=== PATIENT | female | born 1945 | race Caucasian/White ===

== ENCOUNTER → 2016-07-11 | Outpatient (CLI) | payer BC ==
[~2016-07-11] MED LIST: ALG PEG; ASCA500 PO; ASPI-435 PO; BENZ100C18 PO; CALC-354 PO; CARB0.5D28 OPB; EPP3/2 IM; HIZENTRA; HYCUDL5 PO; IPRA1AER2 INH; ISOS60TA2 PO; METO50TA16 PO; MULT-513 PO; MXZC25 PO; NITR0.4S UT; POTA-327 PO; PRD/1 PO; PROC1TAB5 PO; RALO1TAB2 PO; RESV1TAB PO; SIMV40TA4 PO; [UNRECOGNIZED DRUG - CODE] PO; [UNRECOGNIZED DRUG - CODE] TOP
--- NOTE | 2016-07-11 11:15 | DIAGNOSTIC IMAGING REPORT ---
TWO VIEW CHEST CLINICAL HISTORY: Pulmonary infection. FINDINGS: PA and lateral chest radiographs are compared to study dated 01/09/2016 and correlated with chest CT dated 06/11/2015. A left subclavian central venous infusion port is unchanged in position. The patient is status post midline sternotomy. The heart is top normal in size and there is atherosclerotic calcification of the thoracic aorta. The pulmonary vasculature is noncongested. Emphysema and chronic interstitial thickening is similar to previous. Bibasilar airspace opacities persist. A right suprahilar density is unchanged and measures up to 3.2 cm. There is no pleural effusion or pneumothorax. The skeletal structures are osteopenic. Degenerative change and hyperkyphosis are noted in the thoracic spine. IMPRESSION: 1. Emphysema. 2. A 3.2 cm right suprahilar lesion/density is unchanged from the 06/11/2015 CT scan. Neoplasm is not excluded. 3. Bibasilar airspace opacities persist Electronically signed by: Han Bolanos M.D. 07/11/2016 11:14 AM Dictated Date/Time: 07/11/2016 11:12 AM
== END | disposition home or self-care (01) ==
LOC: C.RAD1850 10:46
PROVIDERS: ATTEND Internal Medicine Pulmonary Disease
DX: A31.0 Pulmonary mycobacterial infection (principal); D84.9 Immunodeficiency, unspecified; J43.9 Emphysema, unspecified; R91.8 Other nonspecific abnormal finding of lung field

== ENCOUNTER → 2016-09-30 | Outpatient (CLI) | payer BC ==
[~2016-09-30] MED LIST changes: +ALBU18002 INH; +CEVI1CAP PO; +HYZENTRA INJ; +MAGN250T3 PO; +MISCCAP80 PO; +NTRGSL/4 UT; +POTA20TA16 PO; +RESV250C PO; +RNXER500 PO; +TRAM-10 PO
[2016-09-30 12:40] LABS: BASO % 0.2 %; BASO ABS # 0.01 K/uL (0-0.2); COMPLETE YES; EOS % 1.1 %; HEMATOCRIT 39.9 % (37-47); LYMPH % 28.3 %; LYMPH ABS # 1.52 K/uL (1.2-3.4); MEAN CELL VOLUME 97.6 fL (80-100); MEAN CORPUSCULAR HEMOGLOBIN 32.5 pg (25-34); MEAN CORPUSCULAR HGB CONC 33.3 g/dl (32-36); MEAN PLATELET VOLUME 10.2 fL (7.4-10.4); MONO % 14.3 %; NEUT % 56.1 %; PLATELET COUNT 153 K/uL (130-400); RED BLOOD COUNT 4.09 M/uL (4.2-5.4); WHITE BLOOD COUNT 5.38 K/uL (4.8-10.8)
[2016-09-30 12:55] LABS: ALB/GLOB RATIO 0.8 (0.9-2); ALT/SGPT 23 U/L (12-78); BLOOD UREA NITROGEN 21 mg/dl (7-18); BUN/CREATININE RATIO 15.9 (10-20); CARBON DIOXIDE 27 mmol/L (21-32); CHLORIDE 103 mmol/L (98-107); CHOLESTEROL 137 mg/dl (0-200); GLUCOSE 87 mg/dl (70-99); POTASSIUM 3.9 mmol/L (3.5-5.1); SODIUM 140 mmol/L (136-145); TRIGLYCERIDES 277 mg/dl (0-150); VERY LOW DENSITY LIPOPROT CALC 55 mg/dl
[2016-09-30 13:01] LABS: ALKALINE PHOSPHATASE 48 U/L (45-117); AST/SGOT 35 U/L (15-37); CHOLESTEROL/HDL RATIO 3.9; HDL CHOLESTEROL 35 mg/dl
[2016-09-30 13:34] LABS: ESTIMATED AVERAGE GLUCOSE 123 mg/dl; HA1C FLAG Normal (Normal)
== END | disposition home or self-care (01) ==
LOC: C.LABSPEC 12:16
PROVIDERS: ATTEND Internal Medicine
DX: R73.9 Hyperglycemia, unspecified (principal); E78.5 Hyperlipidemia, unspecified; C85.90 Non-Hodgkin lymphoma, unspecified, unspecified site; I25.10 Atherosclerotic heart disease of native coronary artery without angina pectoris

== ENCOUNTER → 2016-10-03 | Outpatient (CLI) | payer BC | END | disposition home or self-care (01) | LOC: C.LABSPEC 15:42 | PROVIDERS: ATTEND Internal Medicine | DX: Z12.11 Encounter for screening for malignant neoplasm of colon (principal) ==

== ENCOUNTER → 2016-11-17 | Outpatient (CLI) | payer BC ==
[~2016-11-17] MED LIST changes: -ALBU18002 INH; -CEVI1CAP PO; -HYZENTRA INJ; -MAGN250T3 PO; -MISCCAP80 PO; -NTRGSL/4 UT; -POTA20TA16 PO; -RESV250C PO; -RNXER500 PO; -TRAM-10 PO
[2016-11-17 10:36] LABS: CHOLESTEROL/HDL RATIO 3.3
== END | disposition home or self-care (01) ==
LOC: C.LAB1850 09:10
PROVIDERS: ATTEND Internal Medicine Cardiovascular Disease
DX: I25.10 Atherosclerotic heart disease of native coronary artery without angina pectoris (principal); I10 Essential (primary) hypertension

== ENCOUNTER → 2016-12-04 | Outpatient (CLI) | payer BC ==
--- NOTE | 2016-12-04 14:04 | MAMMOGRAPHY REPORT ---
BILATERAL DIGITAL SCREENING MAMMOGRAM WITH CAD: 12/04/2016 CLINICAL HISTORY: Routine screening. Patient has no complaints. TECHNIQUE: Current study was also evaluated with a Computer Aided Detection (CAD) system. Bilateral CC and MLO views were obtained. COMPARISON: Comparison is made to exams dated: 12/03/2015 mammogram, 11/29/2014 mammogram, 11/28/2013 mamm ogram, 11/25/2012 mammogram, 05/31/2012 ultrasound, and 05/31/2012 mammogram - [facility] . BREAST COMPOSITION: There are scattered areas of fibroglandular density in both breasts. FINDINGS: No suspicious masses, calcifications, or areas of architectural distortion are noted in ei ther breast. There has been no significant interval change compared to prior exams. Scattered bilater al benign-appearing calcifications are not significantly changed. A port catheter projects over the left pectoralis muscle. IMPRESSION: ACR BI-RADS CATEGORY 2: BENIGN There is no mammographic evidence of malignancy. A 1 year screening mammogram is recommended. The pa tient will receive written notification of the results. Approximately 10% of breast cancers are not detected with mammography. A negative mammographic report should not delay biopsy if a clinically suggestive mass is present. Maia Flor M.D. /:12/04/2016 10:32:47 Beet Worker: Mindy Bauer, [facility] letter sent: Normal 1/2 BI-RADS Code: ACR BI-RADS Category 2: Benign
== END | disposition home or self-care (01) ==
LOC: C.MAMM 09:53
PROVIDERS: ATTEND Internal Medicine
DX: Z12.31 Encounter for screening mammogram for malignant neoplasm of breast (principal)

== ENCOUNTER → 2017-02-03 | Outpatient (CLI) | payer BC ==
[2017-02-03 12:43] LABS: BASO % 0.2 %; BASO ABS # 0.01 K/uL (0-0.2); COMPLETE YES; EOS % 0.5 %; LYMPH ABS # 1.89 K/uL (1.2-3.4); MEAN CELL VOLUME 96.9 fL (80-100); MEAN CORPUSCULAR HEMOGLOBIN 32.1 pg (25-34); MEAN CORPUSCULAR HGB CONC 33.2 g/dl (32-36); MEAN PLATELET VOLUME 10.4 fL (7.4-10.4); MONO % 14.4 %; NEUT % 52.9 %; PLATELET COUNT 168 K/uL (130-400); RED BLOOD COUNT 3.92 M/uL (4.2-5.4)
[2017-02-03 12:55] LABS: ESTIMATED AVERAGE GLUCOSE 126 mg/dl; HA1C FLAG Normal (Normal)
[2017-02-03 13:28] LABS: ALT/SGPT 20 U/L (12-78); AST/SGOT 33 U/L (15-37); BLOOD UREA NITROGEN 24 mg/dl (7-18); BUN/CREATININE RATIO 20.2 (10-20); CALCIUM 9.3 mg/dl (8.5-10.1); CARBON DIOXIDE 28 mmol/L (21-32); CHLORIDE 102 mmol/L (98-107); GLUCOSE 87 mg/dl (70-99); POTASSIUM 3.7 mmol/L (3.5-5.1); SODIUM 138 mmol/L (136-145)
[2017-02-03 13:31] LABS: ALB/GLOB RATIO 0.9 (0.9-2); ALKALINE PHOSPHATASE 52 U/L (45-117)
== END | disposition home or self-care (01) ==
LOC: C.LABSPEC 12:05
PROVIDERS: ATTEND Internal Medicine
DX: N73.9 Female pelvic inflammatory disease, unspecified (principal); I25.10 Atherosclerotic heart disease of native coronary artery without angina pectoris; I10 Essential (primary) hypertension; C85.90 Non-Hodgkin lymphoma, unspecified, unspecified site

== ENCOUNTER → 2017-02-04 | Outpatient (CLI) | payer BC ==
[~2017-02-04] MED LIST changes: +OPTIRAY 320 IV PRN
--- NOTE | 2017-02-04 14:58 | DIAGNOSTIC IMAGING REPORT ---
CT ABD/PELVIS IV AND ORAL CONT CLINICAL HISTORY: LYMPHOMA COMPARISON STUDY: 06/11/2015 TECHNIQUE: Following the IV administration of 94. mL of Optiray-320, CT scan of the abdomen and pelvis was performed from the lung bases to the proximal femurs. Images are reviewed in the axial, sagittal, and coronal planes. IV contrast was administered without complication. A dose lowering technique was utilized adhering to the principles of ALARA. CT DOSE: FINDINGS: Lower chest: There are lower lobe bronchiectatic changes. There are scattered subcentimeter nodules. There is a 3 cm left lower lobe paravertebral opacity with air bronchograms. Liver: There is stable 14 mm hypodensity within the right hepatic lobe. There is no ductal dilatation. Portal vein appears patent. Gallbladder: Surgically absent Spleen: Normal in size and attenuation. Pancreas: Unremarkable. Adrenal glands: Unremarkable. Kidneys: No solid renal masses are visualized. Subcentimeter renal hypodensities likely represent cysts. There is no hydronephrosis. Bowel: There are no transition zones indicate bowel obstruction. No acute inflammatory changes are visualized. Peritoneum: There is no intraperitoneal free air or abdominal ascites. There is a tiny fat-containing umbilical hernia. Vasculature: Atheromatous changes are present within the abdominal aorta. There is no evidence of aneurysm. Adenopathy: None. Pelvic viscera: The uterus appears surgically absent. Skeletal structures: No destructive osseous lesions are seen. IMPRESSION: 1. No acute findings within the abdomen or pelvis 2. No evidence of pathologic adenopathy 3. Stable right lobe hepatic hypodensity 4. Parenchymal findings at the lung bases which will be described separately in a CT scan of the thorax report. Electronically signed by: Jose Jackson M.D. 02/04/2017 2:56 PM Dictated Date/Time: 02/04/2017 2:51 PM
--- NOTE | 2017-02-04 15:01 | DIAGNOSTIC IMAGING REPORT ---
CHEST CT WITH CONTRAST CT DOSE: 386.24 mGycm HISTORY: Abnormal CT. Follow-up. LYMPHOMA, CREATININE 1.20 02/03/17 TECHNIQUE: Multiaxial CT images of the chest were performed following the intravenous administration of contrast. A dose lowering technique was utilized adhering to the principles of ALARA. COMPARISON: Chest CT 06/11/2015. FINDINGS: Left subclavian Port-A-Cath terminates in the SVC. Normal caliber thoracic aorta. The main pulmonary arteries are patent. The heart is normal in size. Poststernotomy changes. No pleural or pericardial effusions. Stable subcentimeter mediastinal lymph nodes. No hilar lymphadenopathy. No suspicious lytic or blastic osseous lesions. No pneumothorax. Interval increase in size in the spiculated right upper lobe mass which now measures 3.2 x 3.1 cm. Progressive nodular airspace opacity seen at the lung bases. IMPRESSION: 1. Increase in size in the 3.2 x 3.1 cm right upper lobe spiculated mass. This is consistent with a primary bronchogenic malignancy until proven otherwise. Bronchoscopy is recommended. 2. Progressive nodular airspace opacity seen at the lung bases. This favors chronic inflammatory/infectious change. Neoplastic process cannot be excluded but is considered less likely. Electronically signed by: Bucky Mclain M.D. 02/04/2017 3:00 PM Dictated Date/Time: 02/04/2017 2:50 PM
== END | disposition home or self-care (01) ==
LOC: C.CTS 14:29
PROVIDERS: ATTEND Nurse Practitioner Family
DX: C83.39 Diffuse large B-cell lymphoma, extranodal and solid organ sites (principal); K76.9 Liver disease, unspecified; R91.1 Solitary pulmonary nodule; R91.8 Other nonspecific abnormal finding of lung field

== ENCOUNTER → 2017-02-18 | Outpatient (CLI) | payer BC ==
[~2017-02-18] MED LIST changes: +MAGN250T3 PO; -OPTIRAY 320 IV PRN; +POTA20TA16 PO; +RNXER500 PO
--- NOTE | 2017-02-18 13:55 | DIAGNOSTIC IMAGING REPORT ---
PET/CT SKULL-THIGH HISTORY: Pulmonary nodule PULMONARY NODULE TECHNIQUE: PET/CT was performed from the base of the skull through the pelvis following the intravenous administration of 12.4 mCi of F18-FDG. Non-contrast CT imaging was performed over the same range without breath-hold for attenuation correction of PET images and anatomic correlation, but not for primary interpretation as it is not of standard diagnostic quality. CT DOSE: COMPARISON: PET/CT scan 03/31/2015. CT chest 02/04/2017 FINDINGS: HEAD AND NECK: There is no FDG-avid disease or significant lymphadenopathy in the imaged portions of the head and the neck. CHEST: Progressive neoplastic or metastatic disease involving the chest. Mildly metabolically active lesion over the anterior aspect of the right upper lung measuring 1.5 cm. SUV is 1.6. Fibrotic change of the right mid lung is similar. The dominant masslike process in the right perihilar region demonstrates a considerable increase in SUV characteristics at 8.65. Precarinal nodes are present with SUVs 2.8. Low-level metabolic activity of the sternum is consistent with a prior median sternotomy. Low level metastatic foci possibly in left paraspinal musculature is present best seen on transaxial image of -218 with SUVs of 1.8. No significant CT correlate is present. Chronic basilar fibrotic changes somewhat progressive although no definite metabolically active correlate is present. In the region of consolidative change medial left costophrenic angle best seen transaxial image 86 demonstrates increase in SUV to 4.0. This may be atelectatic inflammatory or neoplastic. Associated nodularity shows a moderate increase in SUV characteristics. Several additional nodules are present these are too small to register. There is a metabolically active perigastric node near the gastric fundus 7 SUV of 3. Metabolic activity characteristics of the liver are unremarkable. ABDOMEN/PELVIS: Physiologic activity within the liver spleen and pancreas. Physiologic activity is present within the gastrointestinal and genitourinary tracts. Physiologic activity within the urinary bladder is noted. The bowel pattern is nonobstructive. No significant adenopathy in the inguinal region is present. Focus of increased activity posterior left thigh is no longer appreciated. MUSCULOSKELETAL: There is no FDG-avid or destructive bone lesion. IMPRESSION: 1. Findings consistent with progressive neoplastic change throughout the chest as described. 2. This includes progressive nodularity of the right chest and medial left base, as well as too. Small to characterize multifocal subcentimeter nodules throughout both hemithoraces. 4. Potential developing perigastric marvin change 5. The overall impression of the study is one of progressive neoplastic and or metastatic change primarily within the chest to the current time. The above report was generated using voice recognition software. It may contain grammatical, syntax or spelling errors. Electronically signed by: David Nunez M.D. 02/18/2017 1:54 PM Dictated Date/Time: 02/18/2017 1:42 PM
== END | disposition home or self-care (01) ==
LOC: C.PET 10:06
PROVIDERS: ATTEND Surgery
DX: R91.1 Solitary pulmonary nodule (principal); C83.39 Diffuse large B-cell lymphoma, extranodal and solid organ sites

== ENCOUNTER 2017-03-13 09:38 | Day surgery (SDC) | payer BC ==
[2017-03-11 11:54] VITALS: BMI 19.0
[~2017-03-13] VITALS: Ht 152.4 cm; Wt 45.5 kg
[~2017-03-13 09:38] MED LIST changes: +ALBU18002 INH; -ALG PEG; -ASCA500 PO; +ATROPINE SULFATE 0.1 MG/ML 5ML SYR IV PRN; -CARB0.5D28 OPB; +CEVI1CAP PO; +EpHEDrine SULFATE INJ 50 MG/ML AMP IV PRN; +FENTANYL CITRATE INJ 50 MCG/1 ML 2 ML VIAL IV PRN; -HIZENTRA; +HYZENTRA INJ; -IPRA1AER2 INH; +MISCCAP80 PO; +ONDANSETRON INJ 2 MG/ML 2 ML VIAL IV PRN; -POTA-327 PO; -RESV1TAB PO; +RESV250C PO; -[UNRECOGNIZED DRUG - CODE] PO; -[UNRECOGNIZED DRUG - CODE] TOP
[2017-03-13 10:58] VITALS: BP 129/61; PULSE 67; TEMP 36.8; O2SAT 97; Ht 152.4 cm; Wt 45.5 kg
[2017-03-13] MEDS ORDERED: TRAM-10 PO (11:53)
--- NOTE | 2017-03-13 11:56 | Discharge Instructions ---
Discharge Instructions Date of Service Mar 13, 2017. Visit Reason for Visit: Lung Cancer Discharge Discharge Diagnosis / Problem: Lung Cancer Discharge Goals Goal(s): Learn about illness Activity Recommendations Activity Limitations: resume your previous activity (in 24 hours) 1. You may remove dressing in 3 days and shower thereafter. No tub baths. 2.. Do not drive if taking ultram. Anesthesia . Post Anesthesia Instructions: If you have had General Anesthesia or IV Sedation: * Do not drive today. * Resume driving when surgeon permits. * Do not make important decisions or sign legal documents today. * Call surgeon for: 1. Temperature elevations greater than 101 degrees F. 2. Uncontrollable pain. 3. Excessive bleeding. 4. Persistent nausea and vomiting. 5. Medication intolerance (nausea, vomiting or rash). * For nausea and vomiting use only clear liquids such as: tea, soda, bouillon until nausea subsides, then gradually increase diet as tolerated. * If you have any concerns or questions, call your surgeon's office. If physician is unavailable and it is an emergency, call 911 or go to the nearest emergency room. . Instructions / Follow-Up Instructions / Follow-Up 1. Keep your scheduled appointment with Dr Sutherland on March 23, 2017 @ 9: 30. Diet Recommendations Recommended Home Diet: resume previous diet Pending Studies Studies pending at discharge: no Medical Emergencies . Who to Call and When: Medical Emergencies: If at any time you feel your situation is an emergency, please call 911 immediately. . Non-Emergent Contact Non-Emergency issues call your: Surgeon Call Non-Emergent contact if: you have a fever, your pain is not controlled, wound has increased drainage . . "Provider Documentation" section prepared by El Allen. .
[2017-03-13] MEDS ORDERED: LACTATED RINGER'S 1000ML 1,000 ML IV SCH (12:00)
[2017-03-13] MEDS ORDERED: NURSING VERBAL MED ORDER ONE ×2 (12:00→16:15)
[2017-03-13] MEDS ORDERED: LIDOCAINE HCL 2% 2 ML VIAL (20MG/ML) ONE (12:14)
[2017-03-13] MEDS ORDERED: NEOSTIGMINE METHYLSULFATE 5 MG/5 ML SYR ONE (12:14)
[2017-03-13] MEDS ORDERED: MIDAZOLAM HCL 1 MG/ML 2ML VIAL ONE (12:14)
[2017-03-13] MEDS ORDERED: ONDANSETRON INJ 2 MG/ML 2 ML VIAL ONE ×2 (12:14→14:09)
[2017-03-13] MEDS ORDERED: ROCURONIUM BROMIDE 10 MG/ML 5 ML VIAL IV ONE (12:14)
[2017-03-13] MEDS ORDERED: DEXAMETHASONE SOD INJ 4 MG/ML VIAL ONE (12:14)
[2017-03-13] MEDS ORDERED: PROPOFOL IV EMULSION 10 MG/ML 20 ML VIAL IV ONE (12:14)
[2017-03-13] MEDS ORDERED: FENTANYL CITRATE INJ 50 MCG/1 ML 2 ML VIAL ONE ×2 (12:15→14:07)
--- NOTE | 2017-03-13 12:27 | History & Physical Bridge Note ---
H&P Re-Evaluation Bridge Note: I have examined the patient, reviewed the History & Physical and in the interval since the performance of the History & Physical I have noted the following changes of clinical significance: No changes noted
[2017-03-13] MEDS ORDERED: CLINDAMYCIN PHOS 150 MG/ML 2 ML VIAL ONE (12:47)
[2017-03-13] MEDS ORDERED: MoRPHine SULFATE 2 MG/ML CARP IV PRN (13:45)
[2017-03-13] MEDS ORDERED: TRAMADOL HCL 50 MG TAB PO PRN (13:45)
--- NOTE | 2017-03-13 14:36 | Anesthesiology Progress Note ---
Anesthesia Post Op Note Date & Time Mar 13, 2017 at 14:36 Vital Signs Pain Intensity: 6.0 Vital Signs Past 12 Hours Date Time Temp Pulse Resp B/P (MAP) Pulse Ox O2 Delivery O2 Flow Rate FiO2 03/13/17 13:56 36.3 76 18 133/78 100 Oxymask 10 03/13/17 10:58 36.8 67 20 129/61 (83) 97 Room Air Notes Mental Status: alert / awake / arousable, participated in evaluation Pt Amnestic to Procedure: Yes Nausea / Vomiting: adequately controlled Pain: adequately controlled Airway Patency, RR, SpO2: stable & adequate BP & HR: stable & adequate Hydration State: stable & adequate Anesthetic Complications: no major complications apparent
--- NOTE | 2017-03-13 14:45 | DIAGNOSTIC IMAGING REPORT ---
CHEST ONE VIEW PORTABLE HISTORY: 71 years-old Female mediastinoscopy History of lung cancer. COMPARISON: Chest radiograph 02/27/2017, PET CT 02/18/2017 TECHNIQUE: Portable upright AP view of the chest FINDINGS: Cardiac silhouette is within normal limits. Prior median sternotomy. There is atherosclerosis of the aorta. Left subclavian Qmflof-t-Dnkn catheter appears unchanged. Unchanged right suprahilar mass, 3.5 x 2.7 cm. Prior median sternotomy. Hazy bibasilar opacities are unchanged suggesting areas of atelectasis or pneumonia. No pneumothorax. Blunting of left costophrenic angle suggests small effusion. Surgical clips project over the right upper abdomen suggesting prior cholecystectomy. IMPRESSION: 1. Persistent bibasilar opacities suggesting atelectasis or pneumonia with possible trace left pleural effusion. 2. Unchanged appearance of right suprahilar pulmonary mass. 3. No pneumothorax. The above report was generated using voice recognition software. It may contain grammatical, syntax or spelling errors. Electronically signed by: Selvin Lundberg M.D. 03/13/2017 2:43 PM Dictated Date/Time: 03/13/2017 2:41 PM
[2017-03-13 15:02] VITALS: BP 142/69; PULSE 61; TEMP 36.3; O2SAT 99
[2017-03-13 15:58] VITALS: BP 140/68; PULSE 60; TEMP 36.2; O2SAT 99
[2017-03-13 16:30] VITALS: BP 139/69; PULSE 60; TEMP 36.5; O2SAT 93
[2017-03-13] MEDS ORDERED: PROMETHAZINE HCL INJ 6.25 MG in SODIUM CHLORIDE 0.9% 50ML 50 ML IV ONE (16:30)
[2017-03-13 17:25] VITALS: BP 134/67; PULSE 67; TEMP 36.5; O2SAT 96
--- NOTE | 2017-03-13 18:12 | OPERATIVE REPORT ---
DATE OF OPERATION: 03/13/2017 PREOPERATIVE DIAGNOSIS: Nonsmall cell lung carcinoma, right upper lobe. POSTOPERATIVE DIAGNOSIS: Same. PROCEDURE: Video mediastinoscopy. ANESTHESIA: General. SURGEON: Martínez Bee MD. DELINQUENT TAX COLLECTION ASSISTANT: CHARLES Eason. INDICATION FOR PROCEDURE AND FINDINGS: Naila Vega is an interesting 71-year-old female who was found to have a nonsmall cell lung carcinoma of the right upper lobe with metastases to her subcarinal right level 4 node. Unfortunately, we were unable to get to test her for PD-L1, eGFR, ALK or ROS1 testing. I had a long talk with the patient and her . I told them this would most likely be a first level drug for her. The patient and her both know about more tissue. I believe that a video mediastinoscopy would be our best bet and described this in detail. We elected to proceed. On 03/13/2017, the patient underwent uncomplicated video mediastinoscopy and biopsied several different lymph node stations. She tolerated it well. DESCRIPTION OF PROCEDURE: The patient brought to the operating room and laid in supine position. General anesthesia induced and endotracheal intubation was performed. Next, her neck was extended and she was prepped and draped in usual sterile fashion. After appropriate timeout had been called and antibiotics have been given, incision was made one fingerbreadth above the sternal notch. Blunt and sharp dissection used to go down between the strap muscles and anterior to the isthmus. A video mediastinoscope was inserted and this was easily taken down to the dayanna. There was a small left level 2 node which was biopsied in its entirety and another larger left level 4. Care was taken to avoid use of any cautery on this side. We had some mild oozing treated with simply placing a piece of Surgicel. I biopsied a rather large right level 4 node as well as the subcarinal node. Bleeding was controlled with cautery on the right level 4 and the subcarinal area. Frozen section of the left level 2 node was performed. This showed just a normal architecture with no evidence of metastatic disease. I slowly removed the video mediastinoscope and 3-0 Polysorb used to reapproximate strap muscles. A 4-0 Monocryl was used in a running subcuticular fashion to approximate the wound edges. She tolerated it well and was taken without difficulties from anesthesia. Mr. El Allen was present for the entire case and helped to steady the scope while we controlled hemostasis and performed our biopsies. He closed the incision at the conclusion of the case. I attest to the content of the Intraoperative Record and any orders documented therein. Any exception s are noted below.
== END 2017-03-13 17:40 | disposition home or self-care (01) ==
LOC: C.ACU 09:38
PROVIDERS: ATTEND Surgery
DX: C34.11 Malignant neoplasm of upper lobe, right bronchus or lung (principal); C77.1 Secondary and unspecified malignant neoplasm of intrathoracic lymph nodes; I25.10 Atherosclerotic heart disease of native coronary artery without angina pectoris; I10 Essential (primary) hypertension; E78.01 Familial hypercholesterolemia; D84.9 Immunodeficiency, unspecified; M35.00 Sjogren syndrome, unspecified; M81.0 Age-related osteoporosis without current pathological fracture; Z95.1 Presence of aortocoronary bypass graft; Z79.82 Long term (current) use of aspirin; Z79.899 Other long term (current) drug therapy

== ENCOUNTER → 2017-04-02 | Outpatient (CLI) | payer BC ==
[~2017-04-02] MED LIST changes: -ATROPINE SULFATE 0.1 MG/ML 5ML SYR IV PRN; -EpHEDrine SULFATE INJ 50 MG/ML AMP IV PRN; -FENTANYL CITRATE INJ 50 MCG/1 ML 2 ML VIAL IV PRN; -ONDANSETRON INJ 2 MG/ML 2 ML VIAL IV PRN; +TRAM-10 PO
--- NOTE | 2017-04-02 16:31 | ECHOCARDIOGRAM REPORT ---
*NOTICE TO RECEIVING [employer] This information is strictly Confidential and protected under [place] law. [place] law prohibits you from making any further disclosure of this information unless further disclosure is expressly permitted by the written consent of the person to whom it pertains or is authorized by law. A general authorization for the release of medical or other information is not sufficient for this purpose. Hospital accepts no responsibility if the information is made available to any other person, INCLUDING THE PATIENT. Interpretation Summary * Name: GLORIA KUMARI Study Date: 04/02/2017 02:01 PM * Patient Location: [facility] * : 1945 (M/d/yyyy) Gender: Female * Age: 71 yrs Ethnicity: [place] * Ordering Physician: Kade Stewart * Referring Physician: Kade Stewart D.O. * Performed By: Nan Belcher RDCS * * Reason For Study: Large Cell Lymphoma * -- Conclusions -- * 1. Normal left ventricular size and systolic function. EF 55-60%. No definite regional wall motion abnormalities. No left ventricular hypertrophy. Type 1 diastolic dysfunction. * 2. Aortic valve sclerosis mild, without significant aortic valvular stenosis. * 3. Compared to prior study on 03/20/2015, LV systolic function remains stable. Procedure Details * A complete two-dimensional transthoracic echocardiogram was performed (2D, M-mode, Doppler and color flow Doppler). Left Ventricle * Normal left ventricular size and systolic function. EF 55-60%. No definite regional wall motion abnormalities. No left ventricular hypertrophy. Type 1 diastolic dysfunction. Right Ventricle * The right ventricle is normal in size and function. * The right ventricular systolic function is normal as assessed by tricuspid annular plane systolic excursion (TAPSE) (normal >1.5 cm). Atria * The left atrial size is normal. * Right atrial size is normal. * There is no evidence of atrial septal defect, but resolution does not allow assessment for a patent foramen ovale. Mitral Valve * The mitral valve is grossly normal. * There is mild mitral annular calcification. * There is no mitral valve stenosis. * There is trace mitral regurgitation. Tricuspid Valve * The tricuspid valve is not well visualized, but is grossly normal. * There is no tricuspid stenosis. * There is trace tricuspid regurgitation. Aortic Valve * The aortic valve is trileaflet. * Aortic valve sclerosis mild, without significant aortic valvular stenosis. * No aortic regurgitation is present. Pulmonic Valve * The pulmonary valve is inadequately visualized, but the Doppler data is adequate for interpretation. * There is no pulmonic valvular stenosis. * Trace pulmonic valvular regurgitation. Great Vessels * The aortic root is normal size. Pericardium/Pleural * No significant pericardial effusion. Great Vessels * Normal inferior vena cava size and collapsability with sniff indicates a normal right atrial pressure of 3 mmHg MMode 2D Measurements and Calculations IVSd 1.1 cm IVSs 1.6 cm LVIDd 3.3 cm LVIDs 2.2 cm LVPWd 1.1 cm LVPWs 1.2 cm IVS/LVPW 1.0 FS 32.4 % EDV(Teich) 45.0 ml ESV(Teich) 17.1 ml EF(Teich) 61.9 % EDV(cubed) 36.8 ml ESV(cubed) 11.4 ml EF(cubed) 69.1 % % IVS thick 44.4 % % LVPW thick 3.5 % LV mass(C)d 115.8 grams LV mass(C)dI 83.3 grams/m\S\2 LV mass(C)s 99.2 grams LV mass(C)sI 71.4 grams/m\S\2 SV(Teich) 27.8 ml SI(Teich) 20.0 ml/m\S\2 SV(cubed) 25.4 ml SI(cubed) 18.3 ml/m\S\2 Ao root diam 3.0 cm Ao root area 7.1 cm\S\2 ACS 1.7 cm LA dimension 3.0 cm LA/Ao 1.0 LVAd ap4 13.4 cm\S\2 LVLd ap4 5.8 cm EDV(MOD-sp4) 27.2 ml EDV(sp4-el) 26.1 ml LVAs ap4 8.5 cm\S\2 LVLs ap4 5.7 cm ESV(MOD-sp4) 12.4 ml ESV(sp4-el) 10.9 ml EF(MOD-sp4) 54.3 % EF(sp4-el) 58.2 % SV(MOD-sp4) 14.8 ml SI(MOD-sp4) 10.6 ml/m\S\2 SV(sp4-el) 15.2 ml SI(sp4-el) 10.9 ml/m\S\2 Doppler Measurements and Calculations MV E max arti 60.1 cm/sec MV A max arti 83.4 cm/sec MV E/A 0.72 MV dec time 0.25 sec Ao V2 max 131.4 cm/sec Ao max PG 6.9 mmHg Ao max PG (full) 3.8 mmHg LV V1 max PG 3.1 mmHg LV V1 max 87.5 cm/sec PA V2 max 86.9 cm/sec PA max PG 3.0 mmHg
== END | disposition home or self-care (01) ==
LOC: C.CPL 13:46
PROVIDERS: ATTEND Internal Medicine Hematology & Oncology
DX: C83.39 Diffuse large B-cell lymphoma, extranodal and solid organ sites (principal)

== ENCOUNTER 2017-04-10 10:37 | Inpatient (IN) | payer BC, OTHER ==
[~2017-04-10] VITALS: Ht 149.9 cm; Wt 45.4 kg
[~2017-04-10 10:37] MED LIST changes: -ALBU18002 INH; -ASPI-435 PO; -BENZ100C18 PO; -CALC-354 PO; -CEVI1CAP PO; -EPP3/2 IM; -ISOS60TA2 PO; -MAGN250T3 PO; -METO50TA16 PO; -MISCCAP80 PO; -MULT-513 PO; -NITR0.4S UT; +POTA-639 PO; -POTA20TA16 PO; -PRD/1 PO; -PROC1TAB5 PO; -RALO1TAB2 PO; -RNXER500 PO; -SIMV40TA4 PO
[2017-04-10 11:02] VITALS: BP 134/89; PULSE 91; TEMP 36.9; O2SAT 96; Ht 149.9 cm; Wt 45.4 kg
--- NOTE | 2017-04-10 11:18 | NUR ---
A: Pt is direct admission. Pt has complaints of nausea, vomiting, and diarrhea since 04/01. Also, complaints of mouth/lip sores r/t "the medicine". Pt is currently under treatment for lung cancer. Admission completed. Fall agreement signed. Continued care by SUSAN Morales.
[2017-04-10] MEDS ORDERED: ALUMINUM/MAGNESIUM/SIMETH (MAALOX MAX) 30 ML UDC PO PRN (12:00)
[2017-04-10] MEDS ORDERED: NITROGLYCERIN 0.4 MG SL PER TAB CHARGE UT SCH (12:00)
[2017-04-10] MEDS ORDERED: ACETAMINOPHEN 325 MG TAB PO PRN (12:00)
[2017-04-10] MEDS ORDERED: HYDROCODONE/HOMATROPINE SYRUP 5MG/1.5MG 5ML UDP PO PRN (12:00)
[2017-04-10] MEDS ORDERED: PROCHLORPERAZINE MALEATE 10 MG TAB PO PRN (12:00)
[2017-04-10] MEDS ORDERED: POLYETHYLENE (MIRALAX) 17 GM PACK PO PRN (12:00)
[2017-04-10] MEDS ORDERED: TRAMADOL HCL 50 MG TAB PO PRN (12:00)
[2017-04-10] MEDS ORDERED: HydrALAZINE HCL 20 MG/ML VIAL IV. PRN (12:00)
[2017-04-10] MEDS ORDERED: ONDANSETRON INJ 2 MG/ML 2 ML VIAL IV PRN (12:00)
[2017-04-10] MEDS ORDERED: BENZONATATE 100MG CAP PO PRN (12:00)
[2017-04-10] MEDS ORDERED: MAGNESIUM HYDROXIDE SUSP 30 ML UDC PO PRN (12:00)
[2017-04-10] MEDS ORDERED: MAGIC MOUTHWASH PO PRN (12:00)
--- NOTE | 2017-04-10 12:22 | History and Physical ---
History & Physical Date & Time of Service: Apr 10, 2017 at 11:56 Chief Complaint: Large Cell Lymphoma,Dehydration,R/O Sepsis Primary Care Physician: Evin Tinajero M.D. History of Present Illness Source: patient, clinic records, hospital records Patient is a pleasant 71 y/o female, with PMHx of CAD s/p CABG x4 vessel, HLD, HTN, b-cell lymphoma, chronic cough, immunodeficiency disorder, Sjgren syndrome , and osteoporosis, who was a direct admit from Dr. Stewart's office due to excessive diarrhea. Patient was started on a chemotherapy drug Mar 01 (cannot recall name). As of Mar 02, she has been experiencing diarrhea. She denies any blood/melena present. States she is having BMs every 10 minutes to 1 hour. Chemotherapy medication was discontinued on Thursday (04/07). She was seen by Dr. Stewart today who wanted her directly admitted for colitis secondary to chemotherapy medication- treat NPO w/ IVF. Per patient, medication has a known h /o colitis. She also admits to nausea/vomiting over the past week, but has since subsided since yesterday. She admits to eating and drinking very little due to diarrhea and sore mouth. She was prescribed Magic Mouthwash the other day with improvement in symptoms. +chills. +abdominal cramping w/ BMs. +N/V/D. + chronic cough. Patient denies any fever, sweats, lightheadedness, dizziness, vision changes, CP, palpitations, edema, SOB, wheezing, urinary symptoms, melena , numbness/tingling, weakness, muscle/joint pain, anxiety/depression, active bleeding, or new skin discoloration/changes. Past Medical/Surgical History Medical Problems: CAD s/p CABG x4 vessel HLD HTN b-cell lymphoma chronic cough immunodeficiency disorder Sjgren syndrome osteoporosis ANTONIETTA infection fungal PNA Surgical Problems: (1) H/O: hysterectomy Status: Resolved Family History Diabetes mellitus Hypertension Social History Smoking Status: Never Smoker Marital Status: Housing status: lives with family Occupational Status: unemployed Immunizations History of Influenza Vaccine: Yes Influenza Vaccine Date: Jan 10, 2013 History of Tetanus Vaccine?: Yes Tetanus Immunization Date: Aug 17, 2008 History of Pneumococcal: Yes Pneumococcal Date: Feb 16, 2009 History of Hepatitis B Vaccine: No Multi-Drug Resistant Organisms History of MDRO: No Allergies Coded Allergies: No Known Allergies (Unverified , 03/13/17) Home Medications Scheduled Albuterol Sulfate (Proair Respiclick), 2 PUFFS INH BID Aspirin (Aspirin 81), 1 TAB PO QAM Calcium Carbonate-Cholecalcife (Caltrate 600+D), 1 TAB PO BID Cevimeline Hcl (Cevimeline Hcl), 30 MG PO TID Isosorbide Mononitrate (Imdur Ext Rel), 60 MG PO QAM Magnesium (Magnesium 250 mg), 1 TAB PO QAM Metoprolol Tartrate (Lopressor) (Lopressor), 75 MG PO BID Multivitamins/Minerals (Mvi With Minerals), 1 TAB PO QPM Nitroglycerin (Nitrostat), 0.4 MG UT PRN Potassium Ext Rel (Klor-Con), 10 MEQ PO TID Prednisone (Prednisone), 3 MG PO QAM Probiotic Product (Probiotic), 1 TAB PO QPM Raloxifene HCl (Raloxifene Hydrochloride), 60 MG PO QPM Ranolazine (Ranexa), 1 TAB PO QAM Resveratrol (Pa Resveratrol), 500 MG PO HS Simvastatin (Zocor), 40 MG PO HS Triamterene/Hctz (Triamterene/Hctz 37.5-25MG Tab), 1 TAB PO QDL [Hyzentra], 1 DOSE INJ FRIDAYS Scheduled PRN Benzonatate (Tessalon Perles), 100 MG PO TID PRN for Cough Epinephrine (Epipen), 0.3 MG IM UD PRN for ALLERGIC REACTION Hydrocodone/Homatropine (Hydromet 5-1.5 mg/5Ml), 5 ML PO Q4H PRN for Cough Prochlorperazine Maleate (Compazine), 10 MG PO for Nausea or Vomiting Tramadol (Ultram), 50 MG PO Q4H PRN for Pain Physical Exam Vital Signs Date Time Temp Pulse Resp B/P (MAP) Pulse Ox O2 Delivery O2 Flow Rate FiO2 04/10/17 11:02 36.9 91 18 134/89 96 Room Air General Appearance: no apparent distress, + thin Head: normocephalic, atraumatic Eyes: PERRL ENT: hearing grossly normal Neck: supple Respiratory/Chest: no respiratory distress, no accessory muscle use, + decreased breath sounds (throughout ) Cardiovascular: regular rate, rhythm Abdomen/GI: normal bowel sounds, non tender, soft Back: normal inspection Extremities/Musculoskelatal: no calf tenderness, no pedal edema Neurologic/Psych: alert, normal mood/affect, oriented x 3 Skin: normal color, warm/dry, no rash Impression Assessment and Plan Patient is a pleasant 71 y/o female, with PMHx of CAD s/p CABG x4 vessel, HLD, HTN, b-cell lymphoma, chronic cough, immunodeficiency disorder, Sjgren syndrome , and osteoporosis, who was a direct admit from Dr. Stewart's office due to excessive diarrhea. N/V/D, likely secondary to chemotherapy medication, dehydration: - Admitted to med/surg - IV NSS @ 80 ml/hr- last ECHO 03/2017 w/ EF of 55-60% and grade I diastolic dysfunction - NPO except meds - Check stool culture and c.diff - Compazine and Zofran PRN for nausea Oral mucositis secondary to chemotherapy: Magic mouthwash b-cell lymphoma- follows w/ Dr. Stewart: Currently not receiving chemotherapy or radiation Fungal PNA, ANTONIETTA infection- following w/ Dr. Jon CAD s/p CABG x4 vessel, HLD, HTN- follows w/ Dr. Tian: - Continue Metoprolol 75 mg BID, Imdur 60 mg daily, Zocor 40 mg HS, Mag supplement, KCL supplement - Hold HCTZ due to IVF as above - IV Hydralazine PRN CKD stage III- baseline Cr. 1.2: - Cr. 1.3 today- Gentle IV hydration - Follow PRP Immunodeficiency disorder: Continue Hyzentra injections weekly- to bring medication in Sjgren syndrome: Prednisone 3 mg daily, Evoxac 30 mg TID Osteoporosis: Raloxifene 60 mg daily GI prophylaxis: Protonix daily DVT prophylaxis: Heparin SQ BID Code Status: LEVEL I, FULL Dispo: From home, lives w/ - PT/OT and CM consulted Level of Care Med/Surg Advanced Directives Existing Living Will: Yes Existing Power of Workers Compensation Claims Supervisor: Yes Resuscitation Status FULL RESUSCITATION VTE Prophylaxis Given or contraindicated: Unfractionated heparin SQ, T.E.D. Stockings, SCD's
[2017-04-10] MEDS: SODIUM CHLORIDE 0.9% 1000ML 1,000 ML IV SCH ×2 (12:37→23:53)
[2017-04-10] MEDS: POTASSIUM CHLORIDE 10 MEQ TABCR PO SCH ×2 (13:17→20:44)
[2017-04-10 13:53] LABS: PTT PATIENT 84.3 SECONDS (21.0-31.0)
[2017-04-10 14:43] VITALS: BP 123/82; PULSE 87; TEMP 37.1; O2SAT 95
[2017-04-10] MEDS: CEVIMELINE~ORDER AWAITING ACTION SCH ×2 (16:41→23:22)
[2017-04-10] MEDS: DEXAMETHASONE PO PRN ×10 (16:42→20:52)
[2017-04-10] MEDS: [UNRECOGNIZED DRUG - OTHER] PO PRN ×10 (16:42→20:52)
[2017-04-10] MEDS: NYSTATIN PO PRN ×10 (16:42→20:52)
[2017-04-10] MEDS: LOPERAMIDE HCL 2 MG CAP PO PRN (18:10)
[2017-04-10] MEDS: LACTOBACILLUS ACIDOPHILUS (FLORANEX) TAB PO SCH (18:12)
[2017-04-10 18:53] VITALS: BP 152/83; PULSE 100; TEMP 36.8; O2SAT 93
[2017-04-10] MEDS: CALCIUM 600MG + VIT D 400 IU TAB PO SCH (20:43)
[2017-04-10] MEDS: METOPROLOL TARTRATE 50 MG TAB PO SCH (20:45)
[2017-04-10] MEDS: RALOXIFENE 60 MG TAB PO SCH (20:47)
[2017-04-10] MEDS: CEROVITE ADV FORMULA TAB PO SCH (20:47)
[2017-04-10] MEDS: SIMVASTATIN 40 MG TAB PO SCH (20:48)
[2017-04-10] MEDS: HEPARIN SOD 5000 UNIT/0.5 ML CARP SQ SCH (20:49)
[2017-04-10] MEDS: ALBUTEROL HFA 8 GM INHALER INH SCH (20:52)
[2017-04-10] MEDS ORDERED: RESVERATROL 500 MG PO SCH (21:00)
[2017-04-10 23:05] VITALS: BP 120/78; PULSE 77; TEMP 37; O2SAT 95
[2017-04-10] MEDS ORDERED: ZOLPIDEM TARTRATE 5 MG TAB PO PRN (23:15)
[2017-04-11] VITALS (8 sets, daily range): BP systolic 107–140; BP diastolic 67–87; PULSE 68–88; TEMP 36.5–36.9; O2SAT 94–98
[2017-04-11 03:18] LABS: HEMATOCRIT 32.4 % (37-47); MEAN CELL VOLUME 93.6 fL (80-100); MEAN CORPUSCULAR HEMOGLOBIN 31.8 pg (25-34); MEAN PLATELET VOLUME 9.5 fL (7.4-10.4); PLATELET COUNT 154 K/uL (130-400); RED CELL DISTRIBUTION WIDTH CV 14.4 % (11.5-14.5); RED CELL DISTRIBUTION WIDTH SD 48.8 fL (36.4-46.3); WHITE BLOOD COUNT 6.05 K/uL (4.8-10.8)
[2017-04-11] MEDS: LOPERAMIDE HCL 2 MG CAP PO PRN ×2 (03:36→22:09)
[2017-04-11 04:10] LABS: CALCIUM 7.8 mg/dl (8.5-10.1); CREATININE 0.96 mg/dl (0.60-1.20); POTASSIUM 3.3 mmol/L (3.5-5.1)
[2017-04-11] MEDS: ALBUTEROL HFA 8 GM INHALER INH SCH ×2 (07:42→20:05)
[2017-04-11] MEDS: [UNRECOGNIZED DRUG - OTHER] PO PRN ×10 (07:42→22:09)
[2017-04-11] MEDS: DEXAMETHASONE PO PRN ×10 (07:42→22:09)
[2017-04-11] MEDS: NYSTATIN PO PRN ×10 (07:42→22:09)
[2017-04-11] MEDS: ASPIRIN 81 MG ECTAB PO SCH (07:43)
[2017-04-11] MEDS: MAGNESIUM OXIDE 400 MG TAB PO SCH (07:43)
[2017-04-11] MEDS: RANOLAZINE 500 MG ER TAB PO SCH (07:43)
[2017-04-11] MEDS: ISOSORBIDE MONONITRATE 60 MG TABCR PO SCH (07:43)
[2017-04-11] MEDS: POTASSIUM CHLORIDE 10 MEQ TABCR PO SCH ×2 (07:44→20:06)
[2017-04-11] MEDS: PANTOprazole SOD 40 MG TAB PO SCH (07:44)
[2017-04-11] MEDS: METOPROLOL TARTRATE 50 MG TAB PO SCH ×2 (07:44→20:06)
[2017-04-11] MEDS: CALCIUM 600MG + VIT D 400 IU TAB PO SCH ×2 (07:44→20:05)
[2017-04-11] MEDS: CEVIMELINE~ORDER AWAITING ACTION SCH ×3 (08:00→23:59)
[2017-04-11] MEDS ORDERED: POTASSIUM CHLORIDE 10 MEQ TABCR PO STA (08:16)
[2017-04-11] MEDS: HEPARIN SOD 5000 UNIT/0.5 ML CARP SQ SCH ×2 (08:17→20:08)
[2017-04-11] MEDS ORDERED: SODIUM CHLORIDE 0.65% NA SOLN 45 ML (OCEAN) PRN (08:30)
[2017-04-11] MEDS ORDERED: NURSING VERBAL MED ORDER ONE (08:30)
[2017-04-11] MEDS: MAGNESIUM SULFATE 1GM / D5W 1 GM in PREMIXED IN D5W 100 ML IV SCH ×2 (08:56→10:02)
--- NOTE | 2017-04-11 11:54 | Oncology Consultation ---
Oncology/Heme Consultation Date of Consultation: Apr 11, 2017. Attending Physician: Willie Avina M.D. 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 She was treated with R CHOP to complete remission. In addition she has a history of autoimmune disease including Sjogren's disease as well as immunoglobulin deficiency. She has also been treated in the past for tuberculosis. She has a history of coronary artery disease. More recently she had an evaluation of her right lung hilar lesion that turned out to be adenocarcinoma. Mediastinal evaluation showed an area of lymph node involvement that is pathologic proven. Baseline PET CT comments about mediastinal marvin involvement as well as suspicious nodularity in several areas within both lungs as well as a possible developing perigastric lymph node. It has been difficult to sort througfh what might be neoplastic. Pulmonary nodularity has been seen on scans over the past few years. Biomarker studies positive for a EGFR mutation on exon 21 [id number]. Remainder of the biomarker studies are unremarkable. She was begun on afatinib but within a few days of beginning she developed diarrhea. She continued the afatinib until a few days ago. She presented to our clinic very weak and dehydrated with continuing diarrhea and was subsequently admitted for supportive care. Past Medical/Surgical History Medical Problems: (1) Common bile duct dilation Status: Acute (2) Elevated troponin Status: Acute (3) Epigastric abdominal pain Status: Acute (4) Precordial chest pain Status: Acute Family History Diabetes mellitus Hypertension Social History Smoking Status: Never Smoker Marital Status: Housing Status: lives with family Occupation Status: unemployed Allergies Coded Allergies: No Known Allergies (Unverified , 03/13/17) Home Medications Scheduled Albuterol Sulfate (Proair Respiclick), 2 PUFFS INH BID Aspirin (Aspirin 81), 1 TAB PO QAM Calcium Carbonate-Cholecalcife (Caltrate 600+D), 1 TAB PO BID Cevimeline Hcl (Cevimeline Hcl), 30 MG PO TID Isosorbide Mononitrate (Imdur Ext Rel), 60 MG PO QAM Magnesium (Magnesium 250 mg), 1 TAB PO QAM Metoprolol Tartrate (Lopressor) (Lopressor), 75 MG PO BID Multivitamins/Minerals (Mvi With Minerals), 1 TAB PO QPM Nitroglycerin (Nitrostat), 0.4 MG UT PRN Potassium Ext Rel (Klor-Con), 10 MEQ PO TID Prednisone (Prednisone), 3 MG PO QAM Probiotic Product (Probiotic), 1 TAB PO QPM Raloxifene HCl (Raloxifene Hydrochloride), 60 MG PO QPM Ranolazine (Ranexa), 1 TAB PO QAM Resveratrol (Pa Resveratrol), 500 MG PO HS Simvastatin (Zocor), 40 MG PO HS Triamterene/Hctz (Triamterene/Hctz 37.5-25MG Tab), 1 TAB PO QDL [Hyzentra], 1 DOSE INJ FRIDAYS Scheduled PRN Benzonatate (Tessalon Perles), 100 MG PO TID PRN for Cough Epinephrine (Epipen), 0.3 MG IM UD PRN for ALLERGIC REACTION Hydrocodone/Homatropine (Hydromet 5-1.5 mg/5Ml), 5 ML PO Q4H PRN for Cough Prochlorperazine Maleate (Compazine), 10 MG PO for Nausea or Vomiting Tramadol (Ultram), 50 MG PO Q4H PRN for Pain Current Inpatient Medications Current Inpatient Medications Medications (Trade) Dose Ordered Sig/Jimmy Route Start Time Stop Time Status Last Admin Dose Admin Acetaminophen (Tylenol Tab) 650 mg Q4H PRN PO 04/10/17 12:00 05/10/17 11:59 Al Hydrox/Mg Hydrox/Simethicone (Maalox Max Susp) 15 ml Q4H PRN PO 04/10/17 12:00 05/10/17 11:59 Magnesium Hydroxide (Milk Of Magnesia Susp) 30 ml Q6H PRN PO 04/10/17 12:00 05/10/17 11:59 Polyethylene (Miralax Powder Packet) 17 gm DAILY PRN PO 04/10/17 12:00 05/10/17 11:59 Ondansetron HCl (Zofran Inj) 4 mg Q6H PRN IV 04/10/17 12:00 05/10/17 11:59 Heparin Sodium (Porcine) (Heparin Sq 5000 Unit/0.5ml) 5,000 unit Q12 SQ 04/10/17 21:00 05/10/17 20:59 Sodium Chloride 1,000 ml @ 80 mls/hr [id number] IV 04/10/17 12:45 05/10/17 12:44 04/10/17 23:53 80 MLS/HR Aspirin (Ecotrin Tab) 81 mg QAM PO 04/11/17 08:00 05/11/17 07:59 04/11/17 07:43 81 MG Benzonatate (Tessalon Perles Cap) 100 mg TID PRN PO 04/10/17 12:00 05/10/17 11:59 04/10/17 18:11 100 MG Hydrocodone Bit/ Homatropine Methylb (Hycodan Syrup) 5 ml Q4H PRN PO 04/10/17 12:00 04/24/17 11:59 Isosorbide Mononitrate (Imdur Ext Rel Tab) 60 mg QAM PO 04/11/17 08:00 05/11/17 07:59 04/11/17 07:43 60 MG Metoprolol Tartrate (Lopressor Tab) 75 mg BID PO 04/10/17 20:00 05/10/17 19:59 04/11/17 07:44 75 MG Multivitamins/ Minerals (Multivitamin W/ Minerals Tab) 1 tab QPM PO 04/10/17 21:00 05/10/17 20:59 04/10/17 20:47 1 TAB Nitroglycerin (Nitrostat Tab) 0.4 mg PRN UT 04/10/17 12:00 05/10/17 11:59 Prednisone (PredniSONE TAB) 3 mg QAM PO 04/11/17 08:00 05/11/17 07:59 04/11/17 07:43 3 MG Prochlorperazine Maleate (Compazine Tab) 10 mg Q6H PRN PO 04/10/17 12:00 05/10/17 11:59 Raloxifene HCl (Evista Tab) 60 mg QPM PO 04/10/17 21:00 05/10/17 20:59 04/10/17 20:47 60 MG Simvastatin (Zocor Tab) 40 mg HS PO 04/10/17 21:00 05/10/17 20:59 04/10/17 20:48 40 MG Tramadol HCl (Ultram Tab) 50 mg Q4H PRN PO 04/10/17 12:00 05/10/17 11:59 04/10/17 20:51 50 MG Albuterol (Ventolin Hfa Inhaler) 2 puffs BID INH 04/10/17 20:00 05/10/17 19:59 04/11/17 07:42 2 PUFFS Calcium/Vitamin D (Caltrate Plus Tab) 1 tab BID PO 04/10/17 20:00 05/10/17 19:59 04/11/17 07:44 1 TAB Miscellaneous Information (Order Awaiting Action) 1 ea QS N/A 04/10/17 16:00 05/10/17 15:59 Magnesium Oxide (Mag-Ox Tab) 400 mg QAM PO 04/11/17 08:00 05/11/17 07:59 04/11/17 07:43 400 MG Lactobacillus Acidophilus (Floranex Tab) 4 tab QDD PO 04/10/17 17:00 05/10/17 16:59 04/10/17 18:12 4 TAB Ranolazine (Ranexa ER Tab) 500 mg QAM PO 04/11/17 08:00 05/11/17 07:59 04/11/17 07:43 500 MG Miscellaneous Information (Order Awaiting Action) 1 ea QS N/A 04/10/17 16:00 05/10/17 15:59 04/10/17 16:41 1 EA Hydralazine HCl (HydrALAZINE INJ) 10 mg Q6H PRN IV. 04/10/17 12:00 05/10/17 11:59 Pantoprazole Sodium (Protonix Tab) 40 mg QAM PO 04/11/17 08:00 05/11/17 07:59 04/11/17 07:44 40 MG Nystatin/ Dexamethasone/ Diphenhydramine HCl/Sucrose/ Microcrystalline Cellulose/Barcode Q4H PRN PO 04/10/17 12:45 05/10/17 12:44 04/11/17 07:42 5 ML Heparin Sodium (Porcine) (Heparin 100 Unit/ml 5ml Flush) 5 ml PRN PRN IV 04/10/17 13:30 05/10/17 13:29 Loperamide HCl (Imodium Cap) 2 mg Q4 PRN PO 04/10/17 14:00 05/10/17 13:59 04/11/17 03:36 2 MG Zolpidem Tartrate (Ambien Tab) 5 mg HS PRN PO 04/10/17 23:15 05/10/17 23:14 04/10/17 23:54 5 MG Potassium Chloride (Klor-Con M10) 10 meq BID PO 04/11/17 20:00 05/11/17 19:59 Sodium Chloride ([place] Nasal Win[place]) 1 sprays PRN PRN NA 04/11/17 08:30 05/11/17 08:29 04/11/17 08:56 1 SPRAYS Review of Systems Today she is doing well. She denies any worsening diarrhea in fact she says it has subsided. She is beginning also to take in orally without issues Constitutional: Negative for night sweats, or fever Eyes: Negative for event change of vision ENT: Negative for epistaxis, nasal discharge, sore throat, or deafness Cardiovascular: Negative for chest pain, palpitations, dizziness, diaphoresis Respiratory: Negative for new shortness of breath,hemoptysis, or purulent cough Gastrointestinal: Negative for diarrhea, hematemesis, melena, nausea, vomiting , or dyspepsia Integumentary (skin): Negative for rash or jaundice discoloration Genitourinary: Negative for urinary frequency, hematuria, or dysuria Neurological: Negative for weakness, seizure activity, headache, or dizziness Lymphatic/Hematologic: Negative for petechiae, bleeding or new adenopathy Musculoskeletal: Negative for new joint or back pain Allergic/Immunologic: Negative for unusual rash or pruritis. Physical Exam Date Time Temp Pulse Resp B/P (MAP) Pulse Ox O2 Delivery O2 Flow Rate FiO2 04/11/17 11:33 36.5 69 18 110/76 (87) 95 04/11/17 11:29 36.5 68 18 108/75 (86) 95 Room Air 04/11/17 08:30 Room Air 04/11/17 07:34 36.9 78 16 120/80 (93) 98 Room Air 04/11/17 03:31 36.6 88 19 140/87 (104) 95 Room Air 04/11/17 00:00 96 Room Air 04/10/17 23:05 37.0 77 19 120/78 (92) 95 Room Air 04/10/17 18:53 36.8 100 18 152/83 (106) 93 Room Air 04/10/17 16:00 Room Air 04/10/17 14:43 37.1 87 20 123/82 (96) 95 Constitutional: vitals are stable. Eyes: Eyes are SUSAN EOMI without conjuctival erythema or icterus. ENT: External examination was negative for masses. Neck: Negative for masses or palpable thyromegaly Respiratory: Lung sounds were generally clear bilaterally Cardiovascular: Heart was RRR without significant murmur, gallops aoe rubs Gastrointestinal: No palpable hepatic or splenomegaly. The abdomen was soft with normal bowel sounds. Lymphatic system: there was no palpable peripheral lymphadenopathy Musculoskeletal System: The musculoskeletal system seemed concordant with age. Skin: The skin was negative for jaundice. Neurologic exam: The exam was negative for any focal findings. Deep tendon reflexes were equal and symmetrical. Psychiatric exam: Was essentially negative with normal mood and effect. Breast exam: Not done Extremities: negative for edema Laboratory Results Last 24 Hours Test 04/10/17 13:06 04/11/17 02:55 Prothrombin Time 10.2 SECONDS Prothromb Time International Ratio 1.0 Activated Partial Thromboplast Time 84.3 SECONDS Partial Thromboplastin Ratio 3.2 White Blood Count 6.05 K/uL Red Blood Count 3.46 M/uL Hemoglobin 11.0 g/dL Hematocrit 32.4 % Mean Corpuscular Volume 93.6 fL Mean Corpuscular Hemoglobin 31.8 pg Mean Corpuscular Hemoglobin Concent 34.0 g/dl RDW Standard Deviation 48.8 fL RDW Coefficient of Variation 14.4 % Platelet Count 154 K/uL Mean Platelet Volume 9.5 fL Sodium Level 136 mmol/L Potassium Level 3.3 mmol/L Chloride Level 106 mmol/L Carbon Dioxide Level 23 mmol/L Anion Gap 7.0 mmol/L Blood Urea Nitrogen 12 mg/dl Creatinine 0.96 mg/dl Est Creatinine Clear Calc Drug Dose 35.6 ml/min Estimated GFR () 68.5 Estimated GFR (Non- 59.1 BUN/Creatinine Ratio 12.2 Random Glucose 91 mg/dl Calcium Level 7.8 mg/dl Magnesium Level 1.5 mg/dl Assessment & Plan Probable metastatic adenocarcinoma of the lung. She has had quite a bit of diarrhea and nausea as a result of the TK inhibitor afatinib. This is been held. Today she feels quite a bit better and is anxious for discharge. I have asked her to remain one more day to be sure that the diarrhea has subsided and that she is taking in orally satisfactorily. While she is here there has been some question of an ongoing ANTONIETTA infection. If possible please ask infectious disease to visit comment. She was scheduled to visit with Dr. Jon as an outpatient but was too ill to make that appointment. As far as the next mode of therapy I did ask her whether she be willing to try a smaller dose of afatinib. The usual plan and recommendation would be to decrease the dose 10 mg from the starting dose or 30 mg in her case. She seems willing to do that. We will begin the process of beginning that medicine. We will need to delay starting it only until she has had about 14 days of improved symptomatology. Appreciate Dr. Sandoval's help.
[2017-04-11] MEDS: SODIUM CHLORIDE 0.9% 1000ML 1,000 ML IV SCH (12:42)
--- NOTE | 2017-04-11 15:34 | Progress Note ---
Subjective Date of Service: Apr 11, 2017. Subjective Pt evaluation today including: conversation w/ patient, physical exam, chart review, lab review, review of inpatient medication list feeling better eating better has an appetite mouth just still very sore no further diarrhea no vomiting or nausea Problem List Medical Problems: (1) Common bile duct dilation Status: Acute (2) Elevated troponin Status: Acute (3) Epigastric abdominal pain Status: Acute (4) Precordial chest pain Status: Acute Review of Systems all other ROS otherwise negative except for as above Objective Vital Signs Date Time Temp Pulse Resp B/P (MAP) Pulse Ox O2 Delivery O2 Flow Rate FiO2 04/11/17 11:33 36.5 69 18 110/76 (87) 95 04/11/17 11:29 36.5 68 18 108/75 (86) 95 Room Air 04/11/17 08:30 Room Air 04/11/17 07:34 36.9 78 16 120/80 (93) 98 Room Air 04/11/17 03:31 36.6 88 19 140/87 (104) 95 Room Air 04/11/17 00:00 96 Room Air 04/10/17 23:05 37.0 77 19 120/78 (92) 95 Room Air 04/10/17 18:53 36.8 100 18 152/83 (106) 93 Room Air 04/10/17 16:00 Room Air Physical Exam General Appearance: no apparent distress Eyes: EOMI ENT: hearing grossly normal, + pertinent finding (mucous membranes somewhat cracked) Neck: trachea midline Respiratory/Chest: no respiratory distress, no accessory muscle use Extremities: normal range of motion 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, alert, normal mood/affect Skin: normal color, warm/dry Laboratory Results Last 24 Hours Test 04/11/17 02:55 White Blood Count 6.05 K/uL Red Blood Count 3.46 M/uL Hemoglobin 11.0 g/dL Hematocrit 32.4 % Mean Corpuscular Volume 93.6 fL Mean Corpuscular Hemoglobin 31.8 pg Mean Corpuscular Hemoglobin Concent 34.0 g/dl RDW Standard Deviation 48.8 fL RDW Coefficient of Variation 14.4 % Platelet Count 154 K/uL Mean Platelet Volume 9.5 fL Sodium Level 136 mmol/L Potassium Level 3.3 mmol/L Chloride Level 106 mmol/L Carbon Dioxide Level 23 mmol/L Anion Gap 7.0 mmol/L Blood Urea Nitrogen 12 mg/dl Creatinine 0.96 mg/dl Est Creatinine Clear Calc Drug Dose 35.6 ml/min Estimated GFR () 68.5 Estimated GFR (Non- 59.1 BUN/Creatinine Ratio 12.2 Random Glucose 91 mg/dl Calcium Level 7.8 mg/dl Magnesium Level 1.5 mg/dl Assessment and Plan Patient is a pleasant 71 y/o female, with PMHx of CAD s/p CABG x4 vessel, HLD, HTN, b-cell lymphoma, chronic cough, immunodeficiency disorder, Sjgren syndrome , and osteoporosis, who was a direct admit from Dr. Stewart's office due to excessive diarrhea. N/V/D, likely secondary to chemotherapy medication, dehydration: - improving - IV NSS @ 80 ml/hr - tolerating PO - stool studies negative - Compazine and Zofran PRN for nausea Oral mucositis secondary to chemotherapy: Magic mouthwash, time b-cell lymphoma- follows w/ Dr. Stewart Fungal PNA, ANTONIETTA infection- following w/ Dr. Jon CAD s/p CABG x4 vessel, HLD, HTN- follows w/ Dr. Tian: - Continue Metoprolol 75 mg BID, Imdur 60 mg daily, Zocor 40 mg HS, Mag supplement, KCL supplement - Hold HCTZ due to IVF as above - IV Hydralazine PRN CKD stage III- baseline Cr. 1.2: hydration Immunodeficiency disorder: Continue Hyzentra injections weekly- to bring medication in Sjgren syndrome: Prednisone 3 mg daily, Evoxac 30 mg TID Osteoporosis: Raloxifene 60 mg daily GI prophylaxis: Protonix daily DVT prophylaxis: Heparin SQ BID Code Status: LEVEL I, FULL anticipate home tomorrow
--- NOTE | 2017-04-11 15:37 | NUR ---
Case Management: Met with pt at bedside. Pt's and son also present at bedside. Pt states she lives with her . She reports being independent with ADLs and ambulation. Reports she is receiving an oral chemo that unfortunately has caused side effects and she reports has to stop the medication until after [place]. Pt states her last dose was on 04/07/17. She follows with Dr. Stewart. She does not receive radiation. Pt reports she plans to return home on discharge and does not anticipate any needs. Case Management to follow.
--- NOTE | 2017-04-11 17:08 | Medical Consult ---
Consultation Date of Consultation: Apr 11, 2017. Attending Physician: Willie Avina M.D. Reason for Consultation: ? ANTONIETTA, too ill to be seen as outpatient History of Present Illness 71-year-old female known to me from outpatient infectious disease consultation, with history of B-cell lymphoma diagnosed several years ago, treated with remission and no evidence of recurrence, now with evidence of possibly metastatic lung cancer. Was seen as an outpatient prior to initiation of chemotherapy for positive cultures from bronchoscopy showing both ANTONIETTA and Scaedosporium. Patient did not have obvious evidence of invasive disease or progressive disease, but because of potentially immuno compromising therapy, antifungal therapy was consider. However, use of voriconazole, most likely effective therapy, has been contraindicated by her cardiac medications. Therefore it was decided not to start any empiric therapy. She has been started on her lung cancer therapy, is now admitted with severe diarrhea and dehydration which started after her chemotherapy. She has been off her therapy now for more than 24 hours, and is feeling significantly better. C difficile PCR negative, stool cultures are negative to date. No worsening pulmonary symptoms noted. No significant fever or chills. Past Medical/Surgical History Medical Problems: (1) Common bile duct dilation Status: Acute (2) Elevated troponin Status: Acute (3) Epigastric abdominal pain Status: Acute (4) Precordial chest pain Status: Acute Medical Problems: (1) ASHD (arteriosclerotic heart disease) (2) Autoimmune hepatitis (3) B-cell lymphoma of solid organ (4) BRONCOPNEUMONIA ORG NOS (5) CHEST PAIN, ELEVATED TROPONIN (6) Coronary artery bypass grafts x 4 (7) Coronary artery disease (8) Diarrhea due to drug (9) Gastric lymphoma (10) Hyperlipidemia Nec/Nos (11) Hypertension Nos (12) Hypothyroidism Nos (13) Hysterectomy (14) Immunodeficiency (15) Kidney stones (16) Lymphedema (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 PAIN.,NAUSEA/VOMITING Surgical Problems: (1) H/O: hysterectomy Family History Diabetes mellitus Hypertension Social History Smoking Status: Never Smoker Marital Status: Housing Status: lives with family Occupation Status: unemployed Allergies Coded Allergies: No Known Allergies (Unverified , 03/13/17) Current Inpatient Medications Current Inpatient Medications Medications (Trade) Dose Ordered Sig/Jimmy Route Start Time Stop Time Status Last Admin Dose Admin Acetaminophen (Tylenol Tab) 650 mg Q4H PRN PO 04/10/17 12:00 05/10/17 11:59 Al Hydrox/Mg Hydrox/Simethicone (Maalox Max Susp) 15 ml Q4H PRN PO 04/10/17 12:00 05/10/17 11:59 Magnesium Hydroxide (Milk Of Magnesia Susp) 30 ml Q6H PRN PO 04/10/17 12:00 05/10/17 11:59 Polyethylene (Miralax Powder Packet) 17 gm DAILY PRN PO 04/10/17 12:00 05/10/17 11:59 Ondansetron HCl (Zofran Inj) 4 mg Q6H PRN IV 04/10/17 12:00 05/10/17 11:59 Heparin Sodium (Porcine) (Heparin Sq 5000 Unit/0.5ml) 5,000 unit Q12 SQ 04/10/17 21:00 05/10/17 20:59 Sodium Chloride 1,000 ml @ 80 mls/hr [id number] IV 04/10/17 12:45 05/10/17 12:44 04/11/17 12:42 80 MLS/HR Aspirin (Ecotrin Tab) 81 mg QAM PO 04/11/17 08:00 05/11/17 07:59 04/11/17 07:43 81 MG Benzonatate (Tessalon Perles Cap) 100 mg TID PRN PO 04/10/17 12:00 05/10/17 11:59 04/10/17 18:11 100 MG Hydrocodone Bit/ Homatropine Methylb (Hycodan Syrup) 5 ml Q4H PRN PO 04/10/17 12:00 04/24/17 11:59 Isosorbide Mononitrate (Imdur Ext Rel Tab) 60 mg QAM PO 04/11/17 08:00 05/11/17 07:59 04/11/17 07:43 60 MG Metoprolol Tartrate (Lopressor Tab) 75 mg BID PO 04/10/17 20:00 05/10/17 19:59 04/11/17 07:44 75 MG Multivitamins/ Minerals (Multivitamin W/ Minerals Tab) 1 tab QPM PO 04/10/17 21:00 05/10/17 20:59 04/10/17 20:47 1 TAB Nitroglycerin (Nitrostat Tab) 0.4 mg PRN UT 04/10/17 12:00 05/10/17 11:59 Prednisone (PredniSONE TAB) 3 mg QAM PO 04/11/17 08:00 05/11/17 07:59 04/11/17 07:43 3 MG Prochlorperazine Maleate (Compazine Tab) 10 mg Q6H PRN PO 04/10/17 12:00 05/10/17 11:59 Raloxifene HCl (Evista Tab) 60 mg QPM PO 04/10/17 21:00 05/10/17 20:59 04/10/17 20:47 60 MG Simvastatin (Zocor Tab) 40 mg HS PO 04/10/17 21:00 05/10/17 20:59 04/10/17 20:48 40 MG Tramadol HCl (Ultram Tab) 50 mg Q4H PRN PO 04/10/17 12:00 05/10/17 11:59 04/10/17 20:51 50 MG Albuterol (Ventolin Hfa Inhaler) 2 puffs BID INH 04/10/17 20:00 05/10/17 19:59 04/11/17 07:42 2 PUFFS Calcium/Vitamin D (Caltrate Plus Tab) 1 tab BID PO 04/10/17 20:00 05/10/17 19:59 04/11/17 07:44 1 TAB Miscellaneous Information (Order Awaiting Action) 1 ea QS N/A 04/10/17 16:00 05/10/17 15:59 Magnesium Oxide (Mag-Ox Tab) 400 mg QAM PO 04/11/17 08:00 05/11/17 07:59 04/11/17 07:43 400 MG Lactobacillus Acidophilus (Floranex Tab) 4 tab QDD PO 04/10/17 17:00 05/10/17 16:59 04/10/17 18:12 4 TAB Ranolazine (Ranexa ER Tab) 500 mg QAM PO 04/11/17 08:00 05/11/17 07:59 04/11/17 07:43 500 MG Miscellaneous Information (Order Awaiting Action) 1 ea QS N/A 04/10/17 16:00 05/10/17 15:59 04/10/17 16:41 1 EA Hydralazine HCl (HydrALAZINE INJ) 10 mg Q6H PRN IV. 04/10/17 12:00 05/10/17 11:59 Pantoprazole Sodium (Protonix Tab) 40 mg QAM PO 04/11/17 08:00 05/11/17 07:59 04/11/17 07:44 40 MG Nystatin/ Dexamethasone/ Diphenhydramine HCl/Sucrose/ Microcrystalline Cellulose/Barcode Q4H PRN PO 04/10/17 12:45 05/10/17 12:44 04/11/17 07:42 5 ML Heparin Sodium (Porcine) (Heparin 100 Unit/ml 5ml Flush) 5 ml PRN PRN IV 04/10/17 13:30 05/10/17 13:29 Loperamide HCl (Imodium Cap) 2 mg Q4 PRN PO 04/10/17 14:00 05/10/17 13:59 04/11/17 03:36 2 MG Zolpidem Tartrate (Ambien Tab) 5 mg HS PRN PO 04/10/17 23:15 05/10/17 23:14 04/10/17 23:54 5 MG Potassium Chloride (Klor-Con M10) 10 meq BID PO 04/11/17 20:00 05/11/17 19:59 Sodium Chloride ([place] Nasal [place]) 1 sprays PRN PRN NA 04/11/17 08:30 05/11/17 08:29 04/11/17 08:56 1 SPRAYS Review of Systems Constitutional: + weakness, + fatigue, No fever Eyes: No problem reported ENT: No problem reported Respiratory: No problem reported Cardiovascular: No problem reported Abdomen: + diarrhea Musculoskeletal: No problem reported Genitourinary - Female: No problem reported Neurologic: No problem reported Psychiatric: No problem reported Endocrine: No problem reported Hematologic / Lymphatic: No problem reported Integumentary: No problem reported Allergic / Immunologic: No problem reported Physical Exam Date Time Temp Pulse Resp B/P (MAP) Pulse Ox O2 Delivery O2 Flow Rate FiO2 04/11/17 16:00 36.7 75 18 108/74 (85) 98 Room Air 04/11/17 16:00 98 Room Air 04/11/17 11:33 36.5 69 18 110/76 (87) 95 04/11/17 11:29 36.5 68 18 108/75 (86) 95 Room Air 04/11/17 08:30 Room Air 04/11/17 07:34 36.9 78 16 120/80 (93) 98 Room Air 04/11/17 03:31 36.6 88 19 140/87 (104) 95 Room Air 04/11/17 00:00 96 Room Air 04/10/17 23:05 37.0 77 19 120/78 (92) 95 Room Air 04/10/17 18:53 36.8 100 18 152/83 (106) 93 Room Air General Appearance: WD/WN, no apparent distress Head: normocephalic, atraumatic Eyes: normal inspection, EOMI, sclerae normal ENT: normal ENT inspection, hearing grossly normal, pharynx normal Neck: supple, no adenopathy, thyroid normal, trachea midline Respiratory/Chest: chest non-tender, lungs clear, normal breath sounds, no respiratory distress Cardiovascular: regular rate, rhythm, no gallop, no murmur Abdomen/GI: normal bowel sounds, non tender, soft, no organomegaly Back: normal inspection, no CVA tenderness Extremities/Musculoskelatal: normal inspection, no calf tenderness, non-tender Neurologic/Psych: alert, normal mood/affect, oriented x 3 Skin: normal color, warm/dry, no rash Lymphatic: no adenopathy Laboratory Results RUN DATE: 04/11/17 [facility] LAB PAGE 1 RUN TIME: 6464 Specimen Inquiry PATIENT: GLORIA KUMARI LOC: [facility] U # : [id number] AGE/SX: 71/F ROOM: [facility] REG : 04/10/[address]: Willie Avina M : 1945 BED: 1 DIS : STATUS: ADM IN TLOC: SPEC #: [id number] KAYE: 04/10/17-UNK STATUS: RES REQ #: [id number] RECD: 04/10/[address] [facility] [address]: Vickie Watkins, SHIRLEY SOURCE: STOOL ENTR: 04/10/17-[address]: Evin Tinajero M.D. SPDESC: Willie Avina M.D. ORDERED: STOOL CULTURE Procedure Result Verified Site STOOL SHIGATOXIN Preliminary 04/11/17-1443 No E. Coli shiga toxin 1 or shiga toxin 2 detected. STOOL CULTURE [id number] Preliminary 04/11/17 NO SALMONELLA ISOLATED TO DATE, NO SHIGELLA ISOLATED TO DATE, NO CAMPYLOBACTER JEJUNI ISOLATED TO DATE, Last 24 Hours Test 04/11/17 02:55 White Blood Count 6.05 K/uL Red Blood Count 3.46 M/uL Hemoglobin 11.0 g/dL Hematocrit 32.4 % Mean Corpuscular Volume 93.6 fL Mean Corpuscular Hemoglobin 31.8 pg Mean Corpuscular Hemoglobin Concent 34.0 g/dl RDW Standard Deviation 48.8 fL RDW Coefficient of Variation 14.4 % Platelet Count 154 K/uL Mean Platelet Volume 9.5 fL Sodium Level 136 mmol/L Potassium Level 3.3 mmol/L Chloride Level 106 mmol/L Carbon Dioxide Level 23 mmol/L Anion Gap 7.0 mmol/L Blood Urea Nitrogen 12 mg/dl Creatinine 0.96 mg/dl Est Creatinine Clear Calc Drug Dose 35.6 ml/min Estimated GFR () 68.5 Estimated GFR (Non- 59.1 BUN/Creatinine Ratio 12.2 Random Glucose 91 mg/dl Calcium Level 7.8 mg/dl Magnesium Level 1.5 mg/dl Assessment & Plan 71-year-old female with lung cancer on immunosuppressive therapy with prior BAL cultures positive for both ANTONIETTA and Scaedosporium, who is now admitted with severe diarrhea since institution of her chemotherapy. Given relative contraindication because of her cardiac medications to voriconazole therapy, and lack of evidence of progressive pulmonary disease, I would hold both antifungal in anti ANTONIETTA therapy for now, with close follow-up of pulmonary symptoms for any evidence development of infection. Will discuss with all involved.
[2017-04-11] MEDS: LACTOBACILLUS ACIDOPHILUS (FLORANEX) TAB PO SCH (17:13)
[2017-04-11] MEDS: CEROVITE ADV FORMULA TAB PO SCH (20:07)
[2017-04-11] MEDS: SIMVASTATIN 40 MG TAB PO SCH (20:07)
[2017-04-11] MEDS: RALOXIFENE 60 MG TAB PO SCH (20:08)
[2017-04-12] MEDS: SODIUM CHLORIDE 0.9% 1000ML 1,000 ML IV SCH (01:51)
[2017-04-12 04:39] VITALS: BP 138/80; PULSE 79; TEMP 36.7; O2SAT 95
[2017-04-12] MEDS: LOPERAMIDE HCL 2 MG CAP PO PRN (05:23)
[2017-04-12 05:50] LABS: HEMATOCRIT 29.9 % (37-47); HEMOGLOBIN 10.2 g/dL (12.0-16.0); MEAN CELL VOLUME 93.7 fL (80-100); MEAN CORPUSCULAR HGB CONC 34.1 g/dl (32-36); MEAN PLATELET VOLUME 9.5 fL (7.4-10.4); PLATELET COUNT 127 K/uL (130-400); RED CELL DISTRIBUTION WIDTH CV 14.8 % (11.5-14.5); RED CELL DISTRIBUTION WIDTH SD 50.7 fL (36.4-46.3); WHITE BLOOD COUNT 5.87 K/uL (4.8-10.8)
[2017-04-12 06:21] LABS: CALCIUM 7.3 mg/dl (8.5-10.1); CREATININE 0.9 mg/dl (0.60-1.20); POTASSIUM 3.6 mmol/L (3.5-5.1)
[2017-04-12 07:15] VITALS: BP 129/80; PULSE 73; TEMP 36.8; O2SAT 99
[2017-04-12] MEDS: MAGNESIUM OXIDE 400 MG TAB PO SCH (07:53)
[2017-04-12] MEDS: NYSTATIN PO PRN ×5 (07:53)
[2017-04-12] MEDS: POTASSIUM CHLORIDE 10 MEQ TABCR PO SCH (07:53)
[2017-04-12] MEDS: DEXAMETHASONE PO PRN ×5 (07:53)
[2017-04-12] MEDS: PANTOprazole SOD 40 MG TAB PO SCH (07:53)
[2017-04-12] MEDS: CALCIUM 600MG + VIT D 400 IU TAB PO SCH (07:53)
[2017-04-12] MEDS: [UNRECOGNIZED DRUG - OTHER] PO PRN ×5 (07:53)
[2017-04-12] MEDS: ASPIRIN 81 MG ECTAB PO SCH (07:54)
[2017-04-12] MEDS: ISOSORBIDE MONONITRATE 60 MG TABCR PO SCH (07:54)
[2017-04-12] MEDS: METOPROLOL TARTRATE 50 MG TAB PO SCH (07:54)
[2017-04-12] MEDS: RANOLAZINE 500 MG ER TAB PO SCH (07:55)
[2017-04-12] MEDS: HEPARIN SOD 5000 UNIT/0.5 ML CARP SQ SCH (07:55)
[2017-04-12] MEDS: ALBUTEROL HFA 8 GM INHALER INH SCH (07:55)
--- NOTE | 2017-04-12 09:15 | Discharge Instructions ---
Discharge Instructions Date of Service Apr 12, 2017. Admission Reason for Admission: Diarrhea Due To Drug Discharge Discharge Diagnosis / Problem: diarrhea related to afatinib - improving Discharge Goals Goal(s): Diagnostic testing, Therapeutic intervention Activity Recommendations Activity Limitations: resume your previous activity . Instructions / Follow-Up Instructions / Follow-Up follow up in the oncology office in regards to ongoing treatment call right away if you have worsening of diarrhea or are not able to eat/drink well Current Hospital Diet Patient's current hospital diet: AHA Diet (Heart Healthy) Discharge Diet Recommended Diet: AHA Diet (Heart Healthy) Pending Studies Studies pending at discharge: no Laboratory Results Hemoglobin A1c Test 02/03/17 09:45 Range/Units Estimated Average Glucose 126 mg/dl Hemoglobin A1c 6.0 H 4.5-5.6 % Medical Emergencies . Who to Call and When: Medical Emergencies: If at any time you feel your situation is an emergency, please call 911 immediately. . Non-Emergent Contact Non-Emergency issues call your: Primary Care Provider . . "Provider Documentation" section prepared by Tico Gutierrez. . VTE Core Measure Inpt VTE Proph given/why not?: Unfractionated heparin VINCE, Mirza Chavira, SCD 's
[2017-04-12 09:19] VITALS: BP 129/80; PULSE 73; TEMP 36.8; O2SAT 99
--- NOTE | 2017-04-12 09:36 | NUR ---
A: Discharge instructions given to patient. Questions answered. Troyrt darlin removed. Volunteer called to take patient via wheelchair to lobby.
--- NOTE | 2017-04-12 11:19 | Discharge Summary ---
Discharge Summary Date of Service Apr 12, 2017. Discharge Summary Admission Date: Apr 10, 2017 at 10:45 Discharge Date: Apr 12, 2017 Discharge Disposition: Home Principal Diagnosis: medication induced diarrhea, improving Immunizations: Have You Had Influenza Vaccine: Yes Influenza Vaccine Date: Jan 10, 2013 History of Tetanus Vaccine?: Yes Tetanus Immunization Date: Aug 17, 2008 History of Pneumococcal: Yes Pneumococcal Date: Feb 16, 2009 History of Hepatitis B Vaccine: No Consultations: heme/onc Medication Reconciliation Continued Medications: Albuterol Sulfate (Proair Respiclick) 108 Mcg/Act Aer 2 PUFFS INH BID Aspirin (Aspirin 81) 81 Mg Tab 1 TAB PO QAM OK WITH SURGEON TO CONTINUE PER PT Benzonatate (Tessalon Perles) 100 Mg Cap 100 MG PO TID PRN for Cough, CAP Calcium Carbonate-Cholecalcife (Caltrate 600+D) 1 Tab Tab 1 TAB PO BID Cevimeline Hcl (Cevimeline Hcl) 30 Mg Cap 30 MG PO TID Epinephrine (Epipen) 0.3 Mg/0.3 Ml Inj 0.3 MG IM UD PRN for ALLERGIC REACTION PT ON HYZENTRA INFUSION WEEKLY AND THE EPI WAS PRESCRIBED IN CASE OF REACTION TO THIS MEDICATION Hydrocodone/Homatropine (Hydromet 5-1.5 mg/5Ml) 5 Ml/Cup Syrp 5 ML PO Q4H PRN for Cough, #180 ML Isosorbide Mononitrate (Imdur Ext Rel) 60 Mg Tab 60 MG PO QAM, TAB Magnesium (Magnesium 250 mg) 1 Tab Tab 1 TAB PO QAM Metoprolol Tartrate (Lopressor) (Lopressor) 50 Mg Tab 75 MG PO BID, TAB Multivitamins/Minerals (Mvi With Minerals) Tab 1 TAB PO QPM, TAB Nitroglycerin (Nitrostat) 0.4 Mg Sub 0.4 MG UT PRN, BTL Potassium Ext Rel (Klor-Con) 20 Meq Tabcr 10 MEQ PO TID, TAB Prednisone (Prednisone) 1 Mg Tab 3 MG PO QAM, TAB Probiotic Product (Probiotic) 1 Cap Cap 1 TAB PO QPM Prochlorperazine Maleate (Compazine) 10 Mg Tab 10 MG PO PRN for Nausea or Vomiting, TAB Raloxifene HCl (Raloxifene Hydrochloride) 60 Mg Tab 60 MG PO QPM, #90 Ranolazine (Ranexa) 500 Mg Tabcr 1 TAB PO QAM Resveratrol (Pa Resveratrol) 250 Mg Cap 500 MG PO HS Simvastatin (Zocor) 40 Mg Tab 40 MG PO HS, TAB Tramadol (Ultram) 50 Mg Tab 50 MG PO Q4H PRN for Pain, #15 TAB Triamterene/Hctz (Triamterene/Hctz 37.5-25MG Tab) 1 Tab Tab 1 TAB PO QDL, TAB [Hyzentra] () 1 DOSE INJ FRIDAYS Discharge Exam Physical Exam: General Appearance: no apparent distress Eyes: EOMI ENT: hearing grossly normal Neck: trachea midline Respiratory/Chest: no respiratory distress, no accessory muscle use Extremities: normal inspection Neurologic/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 Stewart's office due to excessive diarrhea. N/V/D, likely secondary to chemotherapy medication, dehydration: - improving - rehydrated w IV fluids, tolerating PO well - tolerating PO - stool studies negative - safe/stable to go home Oral mucositis secondary to chemotherapy: Magic mouthwash, time -- improving b-cell lymphoma- follows w/ Dr. Stewart - to f/u as outpt soon for further treatment options Fungal PNA, ANTONIETTA infection- following w/ Dr. Jon CAD s/p CABG x4 vessel, HLD, HTN- follows w/ Dr. Tian: - Continue Metoprolol 75 mg BID, Imdur 60 mg daily, Zocor 40 mg HS, Mag supplement, KCL supplement CKD stage III- baseline Cr. 1.2: hydration Immunodeficiency disorder: Continue Hyzentra injections weekly Sjgren syndrome: Prednisone 3 mg daily, Evoxac 30 mg TID Osteoporosis: Raloxifene 60 mg daily GI prophylaxis: Protonix daily DVT prophylaxis: Heparin SQ BID Code Status: LEVEL I, FULL stable for home Total Time Spent: Less than 30 minutes This includes examination of the patient, discharge planning, medication reconciliation, and communication with other providers. Discharge Instructions Please refer to the electronic Patient Visit Report (Discharge Instructions) for additional information. Additional Copies To Evin Tinajero M.D.; Kade Stewart D.O.
--- NOTE | 2017-04-13 16:10 | NUR ---
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 She told me that she didn't take her "nausea pill" because she felt like she would throw up again. I called Dr. Stewart's nurse and requested Ava MARES be called into pt's pharmacy. The nurse tells me that they will call this in. I called pt back and left a message telling her to call her pharmacy regarding the rx and to call me w/ any questions. Addendum: 04/14/17 at 1446 by [facility] I called pt to check on her and she tells me that she hasn't had any more nausea or vomiting. However, she has had diarrhea. She was to Dr. Stewart's office today and had an IV infusion to replace fluids. She is to go back tomorrow. Addendum: 04/15/17 at 1420 by [facility] When I spoke w/ the pt on 04/14/17 she told me that the Zofran ODT wasn't called in to her pharmacy. [facility] and left a message for Dr. Reis's nurse about the pt's issues w/ nausea and that as of yesterday, per the pt, there was no script phoned in for Zofran ODT. The nurse tells me that the pt was in their clinic today and received Zofran and IV hydration.
--- NOTE | 2017-04-15 07:37 | EDITING REQUIRED CODING QUERY ---
CODING QUERY To promote full compliance with coding requirements relating to patient care, provider participation is requested in all cases of medical biller coder uncertainty. Please assist us with the question(s) below: Coding Question(s): Please clarify below, in your clinical opinion, regarding documentation of Fungal Pneumonia, ANTONIETTA Infection - following with Dr. Jon. ( x ) Possible Fungal Pneumonia and/or ANTONIETTA Infection was evaluated/treated during this admission - see infectious disease notes, thank you ( ) Fungal Pneumonia and/or ANTONIETTA Infection was ruled-out Physician's Response(s): Thank you Nabila Burger Principal Diagnosis: "_that condition established after study, to be chiefly responsible for occasioning the admission of the patient to the hospital for care." Co-Existing Principal Diagnosis: "_when two or more diagnoses equally meet the criteria for principal diagnosis as determined by the circumstances of admission, diagnostic work up, and/or therapy provided, and the Alphabetic Index, Tabular List, or another coding guideline does not provide sequencing direction, any one of the diagnoses may be sequenced first." "When the physician has documented what appears to be a current diagnosis in the body of the record, but has not included the diagnosis in the final diagnostic statement, the physician should be asked whether the diagnosis should be added." (Source Coding Clinic 2 QTR90. p3-4)
[2017-07-03] MEDS ORDERED: PANT1TAB4 PO (08:47)
[2017-07-16] MEDS ORDERED: PRD/1 PO (07:07)
[2017-07-16] MEDS ORDERED: SIMV40TA4 PO (08:09)
[2017-07-16] MEDS ORDERED: MAGN250T3 PO (08:09)
[2017-07-16] MEDS ORDERED: NITR0.4S UT (08:12)
[2017-07-16] MEDS ORDERED: BENZ100C18 PO (08:38)
[2017-07-16] MEDS ORDERED: PROC10TA PO (08:38)
[2017-07-16] MEDS ORDERED: CALC-354 PO (08:38)
[2017-07-16] MEDS ORDERED: MULT-513 PO (08:38)
[2017-07-16] MEDS ORDERED: RNXER500 PO (09:17)
[2017-08-11] MEDS ORDERED: CPR500 PO (12:52)
== END 2017-04-12 10:08 | disposition home or self-care (01) | DRG 393 ==
LOC: C.4E 10:45
PROVIDERS: ADMIT Internal Medicine; ATTEND Internal Medicine
DX: K52.1 Toxic gastroenteritis and colitis (principal); J16.8 Pneumonia due to other specified infectious organisms; B49 Unspecified mycosis; C78.00 Secondary malignant neoplasm of unspecified lung; A31.9 Mycobacterial infection, unspecified; K12.31 Oral mucositis (ulcerative) due to antineoplastic therapy; T45.1X5A Adverse effect of antineoplastic and immunosuppressive drugs, initial encounter; E86.0 Dehydration; I25.10 Atherosclerotic heart disease of native coronary artery without angina pectoris; I13.10 Hypertensive heart and chronic kidney disease without heart failure, with stage 1 through stage 4 chronic kidney disease, or unspecified chronic kidney disease; N18.3 Chronic kidney disease, stage 3 (moderate); M35.00 Sjogren syndrome, unspecified; E78.5 Hyperlipidemia, unspecified; D89.9 Disorder involving the immune mechanism, unspecified; M81.0 Age-related osteoporosis without current pathological fracture; Z51.81 Encounter for therapeutic drug level monitoring; Z79.899 Other long term (current) drug therapy; Z79.82 Long term (current) use of aspirin; Z79.52 Long term (current) use of systemic steroids; Z85.72 Personal history of non-Hodgkin lymphomas; Z95.1 Presence of aortocoronary bypass graft; Z86.19 Personal history of other infectious and parasitic diseases; Z86.11 Personal history of tuberculosis; Z82.49 Family history of ischemic heart disease and other diseases of the circulatory system; Z83.3 Family history of diabetes mellitus; C85.80 Other specified types of non-Hodgkin lymphoma, unspecified site

== ENCOUNTER 2017-04-17 01:04 | Inpatient (IN) | payer BC, OTHER ==
[~2017-04-17] VITALS: Ht 149.9 cm; Wt 47.4 kg
[2017-04-17] VITALS (8 sets, daily range): BP systolic 81–104; BP diastolic 58–69; PULSE 75–89; TEMP 36.4–37.2; O2SAT 90–96; Ht 149.9 cm; Wt 47.4 kg
[2017-04-17] MEDS ORDERED: ONDANSETRON INJ 2 MG/ML 2 ML VIAL IV STA (01:42)
[2017-04-17] MEDS ORDERED: SODIUM CHLORIDE 0.9% 500ML 500 ML IV STA (01:42)
[2017-04-17] MEDS ORDERED: SODIUM CHLORIDE 0.9% 1000ML 1,000 ML IV STA (01:42)
--- NOTE | 2017-04-17 02:04 | EMERGENCY ROOM VISIT NOTE ---
History Report prepared by Cornelius: Keira Ellis Under the Supervision of: Dr. Shelia Baca D.O. First contact with patient: 01:17 Chief Complaint: WEAKNESS Stated Complaint: WEAK,DEHY History of Present Illness The patient is a 72 year old female who presents to the Emergency Room with complaints of constant weakness beginning tonight. The patient's states that the patient has a history of lung cancer and has been on chemotherapy pills. He reports that the patient has had diarrhea since starting the medication. The patient states that she was peeing on the toilet when she fell off and she denies any injury. She complains of nausea, vomiting, and lightheadedness. She denies any headache. Source of History: patient, spouse/significant other Onset: tonight Position: other (global) Quality: other (weakness) Timing: constant Associated Symptoms: + nausea, + vomiting, + diarrhea, No headache Note: The patient complains of lightheadedness. Review of Systems See HPI for pertinent positives & negatives. A total of 10 systems reviewed and were otherwise negative. 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 PAIN.,NAUSEA/VOMITING Surgical Problems: (1) H/O: hysterectomy Family History Diabetes mellitus Hypertension Social History Smoking Status: Never Smoker Alcohol Use: none Marital Status: Housing Status: lives with family Occupation Status: unemployed Current/Historical Medications Scheduled Albuterol Sulfate (Proair Respiclick), 2 PUFFS INH BID Aspirin (Aspirin 81), 1 TAB PO QAM Calcium Carbonate-Cholecalcife (Caltrate 600+D), 1 TAB PO BID Cevimeline Hcl (Cevimeline Hcl), 30 MG PO TID Isosorbide Mononitrate (Imdur Ext Rel), 60 MG PO QAM Magnesium (Magnesium 250 mg), 1 TAB PO QAM Metoprolol Tartrate (Lopressor) (Lopressor), 75 MG PO BID Multivitamins/Minerals (Mvi With Minerals), 1 TAB PO QPM Potassium Ext Rel (Klor-Con), 10 MEQ PO TID Prednisone (Prednisone), 3 MG PO QAM Probiotic Product (Probiotic), 1 TAB PO QPM Raloxifene HCl (Raloxifene Hydrochloride), 60 MG PO QPM Ranolazine (Ranexa), 1 TAB PO QAM Resveratrol (Pa Resveratrol), 500 MG PO HS Simvastatin (Zocor), 40 MG PO HS Triamterene/Hctz (Triamterene/Hctz 37.5-25MG Tab), 1 TAB PO QDL [Hyzentra], 1 DOSE INJ FRIDAYS Scheduled PRN Benzonatate (Tessalon Perles), 100 MG PO TID PRN for Cough Epinephrine (Epipen), 0.3 MG IM UD PRN for ALLERGIC REACTION Hydrocodone/Homatropine (Hydromet 5-1.5 mg/5Ml), 5 ML PO Q4H PRN for Cough Nitroglycerin (Nitrostat), 0.4 MG UT UD PRN for Chest Pain Prochlorperazine Maleate (Compazine), 10 MG PO for Nausea or Vomiting Tramadol (Ultram), 50 MG PO Q4H PRN for Pain Allergies Coded Allergies: No Known Allergies (Unverified , 04/17/17) Physical Exam Vital Signs Date Time Temp Pulse Resp B/P (MAP) Pulse Ox O2 Delivery O2 Flow Rate FiO2 04/17/17 03:00 93 18 104/74 95 Room Air 04/17/17 01:21 102 04/17/17 01:20 88 Nasal Cannula 2.0 04/17/17 01:09 37.0 100 24 126/84 93 Room Air Physical Exam HEENT: Head - normocephalic and atraumatic Pupils are equal, round, and reactive to light. Extraocular eye muscles are intact, and sclera are anicteric. Nose - moist nasal mucosa without discharge. Mouth - dry buccal mucosa. Oropharynx is nonerythematous and there is no tonsillar exudate or edema noted. Neck: Supple; no JVD, nuchal rigidity, cervical lymphadenopathy. Heart: Regular rate and rhythm. There is a normal S1 and S2 with no murmurs, clicks, or gallops appreciated. Lungs: Clear to auscultation bilaterally with no wheezes, rales, or rhonchi. Abdomen: Soft, completely nontender, nondistended, with good bowel sounds. There are no palpable pulsatile masses or hepatosplenomegaly. There is no guarding, rigidity, or rebound noted. Extremities: No evidence of cyanosis, clubbing, or edema. There are easily palpable peripheral pulses. Skin: Skin dry with poor turgor. Medical Decision & Procedures Laboratory Results 04/17/17 01:50 Red Blood Count 3.55, Mean Corpuscular Volume 93.2, Mean Corpuscular Hemoglobin 31.5, Mean Corpuscular Hemoglobin Concent 33.8, Mean Platelet Volume 10.2, Neutrophils (%) (Auto) 87.6, Lymphocytes (%) (Auto) 4.3, Monocytes (%) (Auto) 7.6, Eosinophils (%) (Auto) 0.1, Basophils (%) (Auto) 0.1, Neutrophils # (Auto) 9.33, Lymphocytes # (Auto) 0.46, Monocytes # (Auto) 0.81, Eosinophils # (Auto) 0.01, Basophils # (Auto) 0.01 04/17/17 01:50 Test 04/17/17 01:50 White Blood Count 10.65 K/uL (4.8-10.8) Red Blood Count 3.55 M/uL (4.2-5.4) Hemoglobin 11.2 g/dL (12.0-16.0) Hematocrit 33.1 % (37-47) Mean Corpuscular Volume 93.2 fL (80-100) Mean Corpuscular Hemoglobin 31.5 pg (25-34) Mean Corpuscular Hemoglobin Concent 33.8 g/dl (32-36) Platelet Count 142 K/uL (130-400) Mean Platelet Volume 10.2 fL (7.4-10.4) Neutrophils (%) (Auto) 87.6 % Lymphocytes (%) (Auto) 4.3 % Monocytes (%) (Auto) 7.6 % Eosinophils (%) (Auto) 0.1 % Basophils (%) (Auto) 0.1 % Neutrophils # (Auto) 9.33 K/uL (1.4-6.5) Lymphocytes # (Auto) 0.46 K/uL (1.2-3.4) Monocytes # (Auto) 0.81 K/uL (0.11-0.59) Eosinophils # (Auto) 0.01 K/uL (0-0.5) Basophils # (Auto) 0.01 K/uL (0-0.2) RDW Standard Deviation 50.9 fL (36.4-46.3) RDW Coefficient of Variation 14.9 % (11.5-14.5) Immature Granulocyte % (Auto) 0.3 % Immature Granulocyte # (Auto) 0.03 K/uL (0.00-0.02) Toxic Vacuolation OCCASIONAL Prothrombin Time 13.1 SECONDS (9.0-12.0) Prothromb Time International Ratio 1.3 (0.9-1.1) Anion Gap 7.0 mmol/L (3-11) Est Creatinine Clear Calc Drug Dose 31.1 ml/min Estimated GFR () 57.7 Estimated GFR (Non- 49.8 BUN/Creatinine Ratio 13.4 (10-20) Calcium Level 8.8 mg/dl (8.5-10.1) Magnesium Level 1.5 mg/dl (1.8-2.4) Total Bilirubin 0.7 mg/dl (0.2-1) Aspartate Amino Transf (AST/SGOT) 33 U/L (15-37) Alanine Aminotransferase (ALT/SGPT) 19 U/L (12-78) Alkaline Phosphatase 64 U/L (45-117) Troponin I 0.981 ng/ml (0-0.045) Total Protein 6.3 gm/dl (6.4-8.2) Albumin 2.6 gm/dl (3.4-5.0) Globulin 3.7 gm/dl (2.5-4.0) Albumin/Globulin Ratio 0.7 (0.9-2) Thyroid Stimulating Hormone (TSH) 2.030 uIu/ml (0.300-4.500) Laboratory results per my review. Medications Administered Medications (Trade) Dose Ordered Sig/Jimmy Route Start Time Stop Time Status Last Admin Dose Admin Sodium Chloride 500 ml @ 999 mls/hr Q31M STAT IV 04/17/17 01:42 04/17/17 02:12 DC 04/17/17 02:07 999 MLS/HR Sodium Chloride 1,000 ml @ 250 mls/hr Q4H STAT IV 04/17/17 01:42 04/17/17 04:14 DC 04/17/17 02:38 250 MLS/HR Ondansetron HCl (Zofran Inj) 4 mg NOW STAT IV 04/17/17 01:42 04/17/17 01:43 DC 04/17/17 02:06 4 MG Magnesium Sulfate (Magnesium Sulfate) 1 gm NOW STAT IV 04/17/17 02:54 04/17/17 02:55 DC 04/17/17 03:18 1 GM Procedure 0142: Zofran Inj 4mg IV, Sodium Chloride 1000 ml @ 250 mls/hr IV, Sodium Chloride 500 ml @ 999 mls/hr IV. 0254: Magnesium Sulfate 1gm IV. ECG Indication: chest pain Rate (beats per minute): 101 Rhythm: sinus tachycardia Findings: RBBB, no acute ischemic change, no ectopy Comparison ECG Date: 02/20/17 Change: no significant change ED Course 0117: Past medical records reviewed. The patient was evaluated in room A3. A complete history and physical exam was performed. Labs were drawn as above. A twelve-lead EKG was obtained as described above. 0142: Zofran Inj 4mg IV, Sodium Chloride 1000 ml @ 250 mls/hr IV, Sodium Chloride 500 ml @ 999 mls/hr IV. 0254: Magnesium Sulfate 1gm IV. 0310: Discussed the patient's case with Dr. Agarwal of [facility]. The patient will be evaluated for further management. 0327: Upon reevaluation, I discussed findings and results with the patient. She verbalized agreement of the treatment plan. I spoke with Dr. Agarwal of the [facility] Hospitalist Service. The patient will be evaluated for further management and care. Medical Decision The patient is a 72 year old female who presents to the ED with weakness. Differential diagnosis includes hyponatremia, dehydration, malnutrition, orthostasis, micturition syncope. LABS: Normal WBC Hemoglobin 11.2 which is baseline Normal Platelet Count Sodium low at 133 Normal Renal Function Glucose 130 Normal TSH and LFT Magnesium Low at 1.5 Troponin 0.981 This is a 72-year-old female patient who has had significant nausea, vomiting and diarrhea. She has had very little oral intake. The patient became weak on the toilet tonight and fell off. She denies injuring herself. However, she was unable to get up off the floor. The patient has lung cancer and had recently received a course of oral chemotherapy. This produced significant diarrhea. Upon presentation this evening, the patient was noted to have an elevated troponin and appeared significantly dehydrated. The patient's magnesium level was also noted to be low. I discussed the case with the hospitalist and they will evaluate for further management. Medication Reconcilliation Current Medication List: was personally reviewed by me Blood Pressure Screening Patient's blood pressure: Normal blood pressure Blood pressure disposition: Did not require urgent referral Consults Time Called: 248 Consulting Physician: Dr. Agarwal - [facility] Returned Call: 0310 Discussed the patient's case with Dr. Agarwal of [facility]. The patient will be evaluated for further management. Impression Primary Impression: Hypomagnesemia Additional Impressions: Elevated troponin Fall Scribe Attestation The scribe's documentation has been prepared under my direction and personally reviewed by me in its entirety. I confirm that the note above accurately reflects all work, treatment, procedures, and medical decision making performed by me. Departure Information Dispostion Being Evaluated By Hospitalist Referrals Evin Tinajero M.D. (PCP) Patient Instructions My [facility] Problem Qualifiers Additional Impressions: Fall Encounter type: initial encounter Qualified Codes: W19.XXXA - Unspecified fall, initial encounter
[2017-04-17 02:12] LABS: HEMATOCRIT 33.1 % (37-47); HEMOGLOBIN 11.2 g/dL (12.0-16.0); MEAN CELL VOLUME 93.2 fL (80-100); MEAN CORPUSCULAR HEMOGLOBIN 31.5 pg (25-34); MEAN CORPUSCULAR HGB CONC 33.8 g/dl (32-36); MEAN PLATELET VOLUME 10.2 fL (7.4-10.4); PLATELET COUNT 142 K/uL (130-400); RED CELL DISTRIBUTION WIDTH CV 14.9 % (11.5-14.5); RED CELL DISTRIBUTION WIDTH SD 50.9 fL (36.4-46.3); WHITE BLOOD COUNT 10.65 K/uL (4.8-10.8)
[2017-04-17 02:30] LABS: ALBUMIN 2.6 gm/dl (3.4-5.0); CALCIUM 8.8 mg/dl (8.5-10.1); CREATININE 1.1 mg/dl (0.60-1.20)
[2017-04-17 02:44] LABS: TOTAL PROTEIN 6.3 gm/dl (6.4-8.2)
[2017-04-17 02:49] LABS: BASO % 0.1 %; BASO ABS # 0.01 K/uL (0-0.2); EOS % 0.1 %; EOS ABS # 0.01 K/uL (0-0.5); IG# 0.03 K/uL (0.00-0.02); LYMPH % 4.3 %; LYMPH ABS # 0.46 K/uL (1.2-3.4); MONO % 7.6 %; MONO ABS # 0.81 K/uL (0.11-0.59); NEUT % 87.6 %; NEUT ABS # 9.33 K/uL (1.4-6.5)
[2017-04-17] MEDS ORDERED: MAGNESIUM SULFATE 1GM / D5W 1 GM BAG IV STA (02:54)
[2017-04-17] MEDS ORDERED: HYDROCODONE/HOMATROPINE SYRUP 5MG/1.5MG 5ML UDP PO PRN (03:30)
[2017-04-17] MEDS ORDERED: NITROGLYCERIN 0.4 MG SL PER TAB CHARGE SL PRN (03:30)
[2017-04-17] MEDS ORDERED: ACETAMINOPHEN 325 MG TAB PO PRN (03:30)
[2017-04-17] MEDS ORDERED: POLYETHYLENE (MIRALAX) 17 GM PACK PO PRN (03:30)
[2017-04-17] MEDS ORDERED: MAGNESIUM HYDROXIDE SUSP 30 ML UDC PO PRN (03:30)
[2017-04-17] MEDS ORDERED: BENZONATATE 100MG CAP PO PRN (03:30)
[2017-04-17] MEDS ORDERED: TRAMADOL HCL 50 MG TAB PO PRN (03:30)
[2017-04-17] MEDS ORDERED: ALUMINUM/MAGNESIUM/SIMETH (MAALOX MAX) 30 ML UDC PO PRN (03:30)
[2017-04-17] MEDS ORDERED: EPINEPHRINE ADULT AUTO-INJECT 0.3 MG SYR IM PRN (03:30)
[2017-04-17] MEDS ORDERED: NITROGLYCERIN 0.4 MG SL PER TAB CHARGE UT PRN (03:30)
--- NOTE | 2017-04-17 04:00 | NUR ---
A: PT RECEIVED INTO ROOM S229-1. PT AMBULATED WITH 1 ASSIST TO BED. MONITOR APPLIED, VITAL SIGNS OBTAINED, GOWN CHANGED. ADMISSION PACKET, FALL AGREEMENT, AND CODE WORD COMPLETED. PT ORIENTED TO ROOM, CALL [facility], HOSPITAL ENVIRONMENT, AND UNIT. CALL [facility] WITHIN REACH, CARE CONTINUED BY PRIMARY RN.
[2017-04-17] MEDS: SODIUM CHLORIDE 0.9% 1000ML 1,000 ML IV SCH ×2 (04:26→15:50)
[2017-04-17] MEDS ORDERED: IV FLUIDS COMPLETED PRN (04:45)
[2017-04-17 04:53] LABS: INR 1.3 (0.9-1.1)
--- NOTE | 2017-04-17 05:48 | History and Physical ---
History & Physical Date & Time of Service: Apr 17, 2017 at 05:29 Chief Complaint: Elevated Troponin, Fall, Hypomagnesemia Primary Care Physician: Evin Tinajero M.D. History of Present Illness This is a 72 y/o F w/ PMHx of CAD s/p CABG x4 vessel, HLD, HTN, b-cell lymphoma , chronic cough, immunodeficiency disorder, Sjgren syndrome, and osteoporosis who presents after being found by her in the bathroom floor. He reports that she was on the toilet and fell forward. He calls it a syncopal episode and that she was unaware of the episode. She did not hit her head. She has been weak and dehydrated recently. She was also just discharged after being treated for diarrhea / weakness 2/2 chemo. The diarrhea has resolved. She supposedly was seen by onc in the last 2 days and received IV fluids. She admits to not being able to eat or drink much. She was recently started on chemotherapy and hasn't been tolerating this well. She will have her second round in April. She denies any chest pain, shortness of breath. Past Medical/Surgical History Medical Problems: (1) ASHD (arteriosclerotic heart disease) Status: Resolved (2) Autoimmune hepatitis Status: Chronic (3) B-cell lymphoma of solid organ Status: Chronic (4) BRONCOPNEUMONIA ORG NOS Status: Resolved (5) Coronary artery bypass grafts x 4 Status: Resolved (6) Coronary artery disease Status: Chronic (7) Gastric lymphoma Status: Chronic (8) Hyperlipidemia Nec/Nos Status: Chronic (9) Hypertension Nos Status: Chronic (10) Hysterectomy Status: Resolved (11) Immunodeficiency Status: Chronic (12) Kidney stones Status: Resolved (13) Lymphedema Status: Chronic (14) Mycobacterium avium-intracellulare infection Status: Chronic (15) Pulmonary infection Status: Resolved (16) Sj gren's syndrome Status: Chronic (17) Sjogren's disease Status: Chronic Surgical Problems: (1) H/O: hysterectomy Status: Resolved Family History Diabetes mellitus Hypertension Social History Smoking Status: Never Smoker Marital Status: Housing status: lives with family Occupational Status: unemployed Immunizations History of Influenza Vaccine: Yes Influenza Vaccine Date: Jan 10, 2013 History of Tetanus Vaccine?: Yes Tetanus Immunization Date: Aug 17, 2008 History of Pneumococcal: Yes Pneumococcal Date: Feb 16, 2009 History of Hepatitis B Vaccine: No Multi-Drug Resistant Organisms History of MDRO: No Allergies Coded Allergies: No Known Allergies (Unverified , 04/17/17) Home Medications Scheduled Albuterol Sulfate (Proair Respiclick), 2 PUFFS INH BID Aspirin (Aspirin 81), 1 TAB PO QAM Calcium Carbonate-Cholecalcife (Caltrate 600+D), 1 TAB PO BID Cevimeline Hcl (Cevimeline Hcl), 30 MG PO TID Isosorbide Mononitrate (Imdur Ext Rel), 60 MG PO QAM Magnesium (Magnesium 250 mg), 1 TAB PO QAM Metoprolol Tartrate (Lopressor) (Lopressor), 75 MG PO BID Multivitamins/Minerals (Mvi With Minerals), 1 TAB PO QPM Potassium Ext Rel (Klor-Con), 10 MEQ PO TID Prednisone (Prednisone), 3 MG PO QAM Probiotic Product (Probiotic), 1 TAB PO QPM Raloxifene HCl (Raloxifene Hydrochloride), 60 MG PO QPM Ranolazine (Ranexa), 1 TAB PO QAM Resveratrol (Pa Resveratrol), 500 MG PO HS Simvastatin (Zocor), 40 MG PO HS Triamterene/Hctz (Triamterene/Hctz 37.5-25MG Tab), 1 TAB PO QDL [Hyzentra], 1 DOSE INJ FRIDAYS Scheduled PRN Benzonatate (Tessalon Perles), 100 MG PO TID PRN for Cough Epinephrine (Epipen), 0.3 MG IM UD PRN for ALLERGIC REACTION Hydrocodone/Homatropine (Hydromet 5-1.5 mg/5Ml), 5 ML PO Q4H PRN for Cough Nitroglycerin (Nitrostat), 0.4 MG UT UD PRN for Chest Pain Prochlorperazine Maleate (Compazine), 10 MG PO for Nausea or Vomiting Tramadol (Ultram), 50 MG PO Q4H PRN for Pain Review of Systems Constitutional: + weight loss, + weakness, + fatigue, No fever, No chills Respiratory: No cough, No sputum, No wheezing, No shortness of breath, No dyspnea on exertion, No dyspnea at rest Cardiovascular: No chest pain, No edema, No palpitations Abdomen: + nausea, + vomiting, No pain, No diarrhea Genitourinary - Female: No dysuria, No urinary frequency, No urinary urgency Physical Exam Vital Signs Date Time Temp Pulse Resp B/P (MAP) Pulse Ox O2 Delivery O2 Flow Rate FiO2 04/17/17 04:00 94 Nasal Cannula 3.0 04/17/17 03:45 94 18 104/74 98 04/17/17 03:30 37.2 89 18 102/69 (80) 91 Nasal Cannula 3.0 04/17/17 03:00 93 18 104/74 95 Room Air 04/17/17 01:21 102 04/17/17 01:20 88 Nasal Cannula 2.0 04/17/17 01:09 37.0 100 24 126/84 93 Room Air General Appearance: no apparent distress Eyes: normal inspection, PERRL, EOMI ENT: hearing grossly normal Neck: supple, no adenopathy, no JVD Respiratory/Chest: lungs clear, normal breath sounds, no accessory muscle use Cardiovascular: regular rate, rhythm, no edema, no murmur Abdomen/GI: normal bowel sounds, non tender, soft Back: no CVA tenderness Extremities/Musculoskelatal: no calf tenderness, no pedal edema, + pertinent finding (stasis dermatitis changes) Neurologic/Psych: flower picker II-XII nml as tested, no motor/sensory deficits, alert, normal mood/affect, oriented x 3 Diagnostics Laboratory Results Results Past 24 Hours Test 04/17/17 01:50 04/17/17 03:35 Range/Units White Blood Count 10.65 4.8-10.8 K/uL Red Blood Count 3.55 4.2-5.4 M/uL Hemoglobin 11.2 12.0-16.0 g/dL Hematocrit 33.1 37-47 % Mean Corpuscular Volume 93.2 80-100 fL Mean Corpuscular Hemoglobin 31.5 25-34 pg Mean Corpuscular Hemoglobin Concent 33.8 32-36 g/dl Platelet Count 142 130-400 K/uL Mean Platelet Volume 10.2 7.4-10.4 fL Neutrophils (%) (Auto) 87.6 % Lymphocytes (%) (Auto) 4.3 % Monocytes (%) (Auto) 7.6 % Eosinophils (%) (Auto) 0.1 % Basophils (%) (Auto) 0.1 % Neutrophils # (Auto) 9.33 1.4-6.5 K/uL Lymphocytes # (Auto) 0.46 1.2-3.4 K/uL Monocytes # (Auto) 0.81 0.11-0.59 K/uL Eosinophils # (Auto) 0.01 0-0.5 K/uL Basophils # (Auto) 0.01 0-0.2 K/uL RDW Standard Deviation 50.9 36.4-46.3 fL RDW Coefficient of Variation 14.9 11.5-14.5 % Immature Granulocyte % (Auto) 0.3 % Immature Granulocyte # (Auto) 0.03 0.00-0.02 K/uL Toxic Vacuolation OCCASIONAL Prothrombin Time 13.1 9.0-12.0 SECONDS Prothromb Time International Ratio 1.3 0.9-1.1 Sodium Level 133 136-145 mmol/L Potassium Level 4.0 3.5-5.1 mmol/L Chloride Level 100 98-107 mmol/L Carbon Dioxide Level 26 21-32 mmol/L Anion Gap 7.0 3-11 mmol/L Blood Urea Nitrogen 15 7-18 mg/dl Creatinine 1.10 0.60-1.20 mg/dl Est Creatinine Clear Calc Drug Dose 31.1 ml/min Estimated GFR () 57.7 Estimated GFR (Non- 49.8 BUN/Creatinine Ratio 13.4 10-20 Random Glucose 130 70-99 mg/dl Calcium Level 8.8 8.5-10.1 mg/dl Magnesium Level 1.5 1.8-2.4 mg/dl Total Bilirubin 0.7 0.2-1 mg/dl Aspartate Amino Transf (AST/SGOT) 33 15-37 U/L Alanine Aminotransferase (ALT/SGPT) 19 12-78 U/L Alkaline Phosphatase 64 45-117 U/L Troponin I 0.981 0-0.045 ng/ml Total Protein 6.3 6.4-8.2 gm/dl Albumin 2.6 3.4-5.0 gm/dl Globulin 3.7 2.5-4.0 gm/dl Albumin/Globulin Ratio 0.7 0.9-2 Thyroid Stimulating Hormone (TSH) 2.030 0.300-4.500 uIu/ml Urine Color YELLOW Urine Appearance CLOUDY CLEAR Urine pH 5.0 4.5-7.5 Urine Specific Gallion 1.013 1.000-1.030 Urine Protein TRACE NEG Urine Glucose (UA) NEG NEG Urine Ketones NEG NEG Urine Occult Blood TRACE NEG Urine Nitrite NEG NEG Urine Bilirubin NEG NEG Urine Urobilinogen NEG NEG Urine Leukocyte Esterase MODERATE NEG Urine WBC (Auto) >30 0-5 /hpf Urine RBC (Auto) 0-4 0-4 /hpf Urine Hyaline Casts (Auto) 0 0-5 /lpf Urine Epithelial Cells (Auto) 5-10 0-5 /lpf Urine Bacteria (Auto) 3+ NEG Urine Pathogenic Casts 0 /lpf Urine Yeast (Auto) NONE PRSENT Impression Assessment and Plan 71 y/o female, with PMHx of CAD s/p CABG x4 vessel, HLD, HTN, b-cell lymphoma, chronic cough, immunodeficiency disorder, Sjgren syndrome, and osteoporosis who presents after a supposed syncopal episode / weakness while urinating. In the ED, she also had a concurrent Troponin elevation. Weakness/dehydration, hyponatremia, hypomag IV Fluids. trend BMP orthostatics replace mag. Elevated troponin Asymptomatic No new changes on EKG Serial enzymes Echo ?chemo related? b-cell lymphoma- sees Oncology Fungal PNA, ANTONIETTA infection- sees infectious disease CAD s/p CABG x4 vessel, HLD, HTN - Continue Metoprolol 75 mg BID, Imdur 60 mg daily, Zocor 40 mg Immunodeficiency disorder: Continue Hyzentra injections weekly Sjgren syndrome: Prednisone 3 mg daily, Evoxac 30 mg TID Osteoporosis: Raloxifene 60 mg daily DVT prophylaxis: Heparin SQ BID Code Status: LEVEL I, FULL Resident Physician Supervision Note: I was present with Dr. Beverly during the history and exam. I discussed the case with the resident and agree with the findings and plan as documented in the note. Any exceptions or clarifications are listed here: 72 y/o F CAD, HTN, HPL, Sjogrens, immune deficiency, B-cell lymphoma - recent adverse reaction to chemotherapy - presenting following near-syncopal episode with clinical dehydration - an elevated troponin is present on initial labs OE Thin, elderly female - no distress AAO x 3 S1.2 R CTAB NT, ND No CCE P: Pt will receive IVF We will trend her trop and obtain an echo as she does not have ACS symptoms She remains on a low dose of prednisone for Sjogrens - if hypotension is present - adrenal insuf should be considered Documented By: Bassam Agarwal Advanced Directives Existing Living Will: Yes Existing Power of Department Clinician: Yes VTE Prophylaxis VTE Risk Assessment Done? Y/N: Yes Risk Level: Moderate
[2017-04-17] MEDS: CEVIMELINE~ORDER AWAITING ACTION SCH ×2 (08:00→16:00)
--- NOTE | 2017-04-17 08:00 | NUR ---
A: denies complaints. sitting OOB in chair. consumed 75% breakfast. IV NSS infusing at 80ml/hr via left chest port, site clear. denies difficulty voiding.
[2017-04-17] MEDS: HEPARIN SOD 5000 UNIT/0.5 ML CARP SQ SCH ×2 (08:31→20:06)
[2017-04-17] MEDS: ISOSORBIDE MONONITRATE 60 MG TABCR PO SCH (08:31)
[2017-04-17] MEDS: MAGNESIUM OXIDE 400 MG TAB PO SCH (08:31)
[2017-04-17] MEDS: POTASSIUM CHLORIDE 20 MEQ TABCR PO SCH ×3 (08:32→20:04)
[2017-04-17] MEDS: CALCIUM 600MG + VIT D 400 IU TAB PO SCH ×2 (08:33→15:56)
[2017-04-17] MEDS: ASPIRIN 81 MG ECTAB PO SCH (08:33)
[2017-04-17] MEDS: METOPROLOL TARTRATE 50 MG TAB PO SCH ×2 (08:33→20:14)
[2017-04-17] MEDS: ALBUTEROL HFA 8 GM INHALER INH SCH ×2 (08:34→21:00)
[2017-04-17] MEDS ORDERED: ENOXAPARIN 40 MG/0.4 ML SYR SC SCH (09:00)
[2017-04-17] MEDS ORDERED: MAGNESIUM SULFATE 1GM / D5W 1 GM in PREMIXED IN D5W 100 ML IV ONE (09:15)
[2017-04-17] MEDS ORDERED: TRIAMTERENE/HCTZ 37.5/25MG TAB PO SCH (11:00)
--- NOTE | 2017-04-17 12:00 | NUR ---
A: medicated for nausea with Zofran. was able to consumed 75% lunch. IVF infusing without difficulty. patient has sat OOB in chair for few hours today. voiding without difficulty. assessment unchanged.
[2017-04-17] MEDS: ONDANSETRON INJ 2 MG/ML 2 ML VIAL IV PRN ×2 (12:11→18:14)
--- NOTE | 2017-04-17 12:43 | NUR ---
case management note. social service for D/C planning. met with pt at bedside. pt is a 30 day readmit. She was hospitalized Apr 10- with diarrhea from chemo. pt states she was not feeling well at home since recent D/C and had received IV fluids at the chemo center one day prior to this admission but was still not feeling better. pt is A&O and states she lives with her and son in a 2 story handicap accessible house with a ramp to enter. She states there is a bathroom on the main level and a stair lift to the second floor bedrooms. She states she is independent with all activities and drives. she does not have any HH or O2. role of caser shoe parts explained. pt states she is planning to return home at D/C and denies the need for any services. per nursing documentation, pt is independent with activity. case management to follow for needs.
--- NOTE | 2017-04-17 13:12 | Cardiology Consultation ---
Cardiology Consultation Date of Consultation: Apr 17, 2017. Requesting Physician: Dr. Watkins Reason for Consultation: Elevated troponin Pt evaluation today including: conversation w/ patient, physical exam, lab review, review of studies, review of inpatient medication list History of Present Illness This is a 71-year-old woman who has a history of an abnormal stress test in 2010 , catheterization demonstrated severe triple vessel coronary artery disease and she underwent bypass surgery 4 at [facility] in November 2010. She had a CUTLER to the LAD, saphenous vein grafts to the diagonal, circumflex and right coronary arteries. She had recurrent chest pain and had catheterization in January 2013, at that time all grafts were patent and her left ventricular function was normal. 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 She was treated with chemotherapy with remission. 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 She was started on afatinib and developed diarrhea with dehydration. She was hospitalized April 10 through 04/12/2017 for this. She now presents with a fall and possible syncopal event. She has been unable to eat or drink much, and had continued diarrhea. She was sitting on the toilet when she fell, she may have had loss of consciousness. She is brought into the hospital by her and was noted to have an elevated troponin. On arrival she was tachycardic, she was not hypotensive but her blood pressure has been running around 100 systolic. She tells me that she was not able to keep most of her medications down prior to coming into the emergency room due to nausea and vomiting. She does not remember the event, she does not recall falling or having an unconscious episode. She has not been having any chest discomfort but has been quite ill for around one month, prior to that she is very active ( taking care of a handicapped child) and was not having discomfort at that time. Today she feels better, she is getting ready to eat lunch and has an appetite that she did not have recently. She does not have shortness of breath or chest discomfort today. Past Medical/Surgical History (1) Coronary artery disease (2) Sj gren's syndrome (3) Hysterectomy (4) Hyperlipidemia Nec/Nos (5) Hypertension Nos (6) Hypothyroidism Nos (7) Osteoporosis Nec (8) Gastric lymphoma Family History Diabetes mellitus Hypertension Social History Smoking Status: Never Smoker History of Alcohol Use: No Review of Systems Constitutional: No fever, No weight loss, No weakness Respiratory: No cough, No wheezing, No shortness of breath, No dyspnea on exertion Cardiac: + see HPI, No chest pain, No orthopnea, No PND, No edema, No palpitations Abdomen: No pain, No nausea, No vomiting, No diarrhea, No GI bleeding Female : No problem reported Neurologic: No paralysis, No weakness, No numbness/tingling, No balance problems Heme: No abnormal bleeding/bruising, No clotting problems Endo: No fatigue Skin: No problem reported All Other Systems: Reviewed and Negative Allergies Coded Allergies: No Known Allergies (Unverified , 04/17/17) Medications Current Inpatient Medications Medications (Trade) Dose Ordered Sig/Jimmy Route Start Time Stop Time Status Last Admin Dose Admin Sodium Chloride 1,000 ml @ 80 mls/hr [id number] IV 04/17/17 04:15 05/17/17 04:14 04/17/17 04:26 80 MLS/HR Acetaminophen (Tylenol Tab) 650 mg Q4H PRN PO 04/17/17 03:30 05/17/17 03:29 Al Hydrox/Mg Hydrox/Simethicone (Maalox Max Susp) 15 ml Q4H PRN PO 04/17/17 03:30 05/17/17 03:29 Magnesium Hydroxide (Milk Of Magnesia Susp) 30 ml Q12H PRN PO 04/17/17 03:30 05/17/17 03:29 Ondansetron HCl (Zofran Inj) 4 mg Q6H PRN IV 04/17/17 03:30 05/17/17 03:29 Nitroglycerin (Nitrostat Tab) 0.4 mg UD PRN SL 04/17/17 03:30 05/17/17 03:29 Polyethylene (Miralax Powder Packet) 17 gm DAILY PRN PO 04/17/17 03:30 05/17/17 03:29 Aspirin (Ecotrin Tab) 81 mg QAM PO 04/17/17 09:00 05/17/17 08:59 04/17/17 08:33 81 MG Benzonatate (Tessalon Perles Cap) 100 mg TID PRN PO 04/17/17 03:30 05/17/17 03:29 Epinephrine (Epipen) 0.3 mg UD PRN IM 04/17/17 03:30 05/17/17 03:29 Hydrocodone Bit/ Homatropine Methylb (Hycodan Syrup) 5 ml Q4H PRN PO 04/17/17 03:30 05/01/17 03:29 Isosorbide Mononitrate (Imdur Ext Rel Tab) 60 mg QAM PO 04/17/17 09:00 05/17/17 08:59 04/17/17 08:31 60 MG Metoprolol Tartrate (Lopressor Tab) 75 mg BID PO 04/17/17 09:00 05/17/17 08:59 04/17/17 08:33 75 MG Multivitamins/ Minerals (Multivitamin W/ Minerals Tab) 1 tab QPM PO 04/17/17 21:00 05/17/17 20:59 Potassium Chloride (Klor-Con Tab) 10 meq TID PO 04/17/17 09:00 05/17/17 08:59 04/17/17 08:32 10 MEQ Prednisone (PredniSONE TAB) 3 mg QAM PO 04/17/17 09:00 05/17/17 08:59 04/17/17 08:33 3 MG Raloxifene HCl (Evista Tab) 60 mg QPM PO 04/17/17 21:00 05/17/17 20:59 Simvastatin (Zocor Tab) 40 mg HS PO 04/17/17 21:00 05/17/17 20:59 Tramadol HCl (Ultram Tab) 50 mg Q4H PRN PO 04/17/17 03:30 05/17/17 03:29 Albuterol (Ventolin Hfa Inhaler) 2 puffs BID INH 04/17/17 09:00 05/17/17 08:59 04/17/17 08:34 2 PUFFS Calcium/Vitamin D (Caltrate Plus Tab) 1 tab BID17 PO 04/17/17 09:00 05/17/17 08:59 04/17/17 08:33 1 TAB Miscellaneous Information (Order Awaiting Action) 1 ea QS N/A 04/17/17 08:00 05/17/17 07:59 Magnesium Oxide (Mag-Ox Tab) 400 mg DAILY PO 04/17/17 09:00 05/17/17 08:59 04/17/17 08:31 400 MG Prochlorperazine Maleate (Compazine Tab) 10 mg DAILY PRN PO 04/17/17 03:30 05/17/17 03:29 Miscellaneous (Iv Fluids Completed) 1 ea PRN PRN N/A 04/17/17 04:45 04/17/18 04:44 Heparin Sodium (Porcine) (Heparin Sq 5000 Unit/0.5ml) 5,000 unit Q12 SQ 04/17/17 09:00 05/17/17 08:59 04/17/17 08:31 5,000 UNIT Physical Exam Vital Signs Past 12 Hours Date Time Temp Pulse Resp B/P (MAP) Pulse Ox O2 Delivery O2 Flow Rate FiO2 04/17/17 08:00 Room Air 04/17/17 07:44 36.5 82 19 100/67 (78) 90 Room Air 04/17/17 06:00 89 100/68 (79) 96 84 101/68 (79) 87 81/59 (66) 04/17/17 04:00 94 Nasal Cannula 3.0 04/17/17 03:45 94 18 104/74 98 04/17/17 03:30 37.2 89 18 102/69 (80) 91 Nasal Cannula 3.0 04/17/17 03:00 93 18 104/74 95 Room Air 04/17/17 01:21 102 04/17/17 01:20 88 Nasal Cannula 2.0 04/17/17 01:09 37.0 100 24 126/84 93 Room Air Constitutional: General Apperance: heathly-appearing Level of Distress: NAD Psychiatric: Mental Status: active & alert Head: normocephalic Eyes: EOM: EOMI ENMT: normal ENT inspection, hearing grossly normal Neck: supple, no masses Lungs: Respiratory effort: no dyspnea, good air movement Auscultation: breath sounds normal, no wheezing Cardiovascular: Heart Auscultation: RRR, no rubs, no gallops, II/ WSM Peripheral Pulses: Bruits: none appreciated Abdomen: Bowel Sounds: normal Inspection & Palpation: soft, no tenderness, guarding & rebound, no masses Musculoskeletal: normal strength (5/5 throughout) Extremities: no edema Neurologic: Cranial Nerves: grossly intact Sensation: grossly intact Data Laboratory Results: Last 24 Hours Test 12/22/17 01:50 04/17/17 03:35 04/17/17 09:38 White Blood Count 10.65 K/uL Red Blood Count 3.55 M/uL Hemoglobin 11.2 g/dL Hematocrit 33.1 % Mean Corpuscular Volume 93.2 fL Mean Corpuscular Hemoglobin 31.5 pg Mean Corpuscular Hemoglobin Concent 33.8 g/dl Platelet Count 142 K/uL Mean Platelet Volume 10.2 fL Neutrophils (%) (Auto) 87.6 % Lymphocytes (%) (Auto) 4.3 % Monocytes (%) (Auto) 7.6 % Eosinophils (%) (Auto) 0.1 % Basophils (%) (Auto) 0.1 % Neutrophils # (Auto) 9.33 K/uL Lymphocytes # (Auto) 0.46 K/uL Monocytes # (Auto) 0.81 K/uL Eosinophils # (Auto) 0.01 K/uL Basophils # (Auto) 0.01 K/uL RDW Standard Deviation 50.9 fL RDW Coefficient of Variation 14.9 % Immature Granulocyte % (Auto) 0.3 % Immature Granulocyte # (Auto) 0.03 K/uL Toxic Vacuolation OCCASIONAL Prothrombin Time 13.1 SECONDS Prothromb Time International Ratio 1.3 Sodium Level 133 mmol/L Potassium Level 4.0 mmol/L Chloride Level 100 mmol/L Carbon Dioxide Level 26 mmol/L Anion Gap 7.0 mmol/L Blood Urea Nitrogen 15 mg/dl Creatinine 1.10 mg/dl Est Creatinine Clear Calc Drug Dose 31.1 ml/min Estimated GFR () 57.7 Estimated GFR (Non- 49.8 BUN/Creatinine Ratio 13.4 Random Glucose 130 mg/dl Calcium Level 8.8 mg/dl Magnesium Level 1.5 mg/dl Total Bilirubin 0.7 mg/dl Aspartate Amino Transf (AST/SGOT) 33 U/L Alanine Aminotransferase (ALT/SGPT) 19 U/L Alkaline Phosphatase 64 U/L Troponin I 0.981 ng/ml 2.470 ng/ml Total Protein 6.3 gm/dl Albumin 2.6 gm/dl Globulin 3.7 gm/dl Albumin/Globulin Ratio 0.7 Thyroid Stimulating Hormone (TSH) 2.030 uIu/ml Urine Color YELLOW Urine Appearance CLOUDY Urine pH 5.0 Urine Specific [place] 1.013 Urine Protein TRACE Urine Glucose (UA) NEG Urine Ketones NEG Urine Occult Blood TRACE Urine Nitrite NEG Urine Bilirubin NEG Urine Urobilinogen NEG Urine Leukocyte Esterase MODERATE Urine WBC (Auto) >30 /hpf Urine RBC (Auto) 0-4 /hpf Urine Hyaline Casts (Auto) 0 /lpf Urine Epithelial Cells (Auto) 5-10 /lpf Urine Bacteria (Auto) 3+ Urine Pathogenic Casts /lpf Urine Yeast (Auto) Imaging: An echocardiogram was done and is pending EKG: On arrival sinus tachycardia with a rate of 101 bpm, bifascicular block with a right bundle branch block pattern and left anterior fascicular block. Compared to her prior electrocardiogram of 02/20/2017 the conduction abnormality is worse, the prior electrocardiogram only showed an incomplete right bundle branch block. I had this electrocardiogram repeated around noon today, that is not in the computer yet but on direct review in the room it appeared much like the 02/20/2017 electrocardiogram. There were no acute changes. Telemetry reviewed: Sinus tachycardia initially with a heart rate of just over 100 with gradual decrease overnight into the 80s today. No significant arrhythmia, no heart block. Assessment & Plan #1. Elevated troponin: I suspect this is due to demand ischemia with her underlying known coronary artery disease. She did not have symptoms to suggest an acute event (she did not have any kind of chest discomfort) enteral echocardiogram does not show an acute event today, she did have a worsening of her conduction abnormality yesterday when she was tachycardic so it is hard to read for ischemia. She also was not keeping her medications down due to having nausea and vomiting. I think the elevated heart rate, lack of medications and stress of her presentation could have contributed to demand ischemia without a specific cardiac event. I would continue to trend her troponins but would not plan invasive evaluation at this time. #2. Bifascicular block on presentation: This may simply be rate related, prior electrical cardiograms have not shown it. It is a little bit worrisome however in view of her possible syncope but there are other potential causes of that. A follow-up electrocardiogram is similar to prior ECGs without the conduction abnormalities. Her dobutamine stress test 2 years ago did not show these conduction abnormalities at a quite high heart rate. This may suggest progressive conduction disease. I don't think it is likely due to ischemia. #3. Fall, possible syncope: I am inclined to think that this is due to volume depletion, however we did not document significant hypotension and the finding of bifascicular block on her presenting ECG is worrisome, although probably the conduction abnormality is rate related. I would continue to monitor for now. We may need to consider longer term monitoring depending on hospital course. Thank you for allowing me to participate in her care.
[2017-04-17] MEDS ORDERED: MAGIC MOUTHWASH PO PRN (14:15)
--- NOTE | 2017-04-17 14:40 | Hospitalist Progress Note ---
Hospitalist Progress Note Date of Service Apr 17, 2017. (Vickie Watkins ., PA-C) Subjective Pt evaluation today including: conversation w/ patient, conversation w/ family ( at bedside ), physical exam, lab review, review of inpatient medication list Voiding: no voiding problems Patient resting in bed. Patient was most recently admitted to [facility] on 04/10-04/12 due to diarrhea and dehydration secondary to chemotherapy. She notes at discharge she felt great- the following day 04/13, she started to again experience N/V/D and inability to eat/drink. She notes over the past week she has become progressive weak, lightheaded/ dizzy. She was treated w/ IVF on 04/14 and 04/15 outpatient at the cancer center. Yesterday, 04/16- she notes she felt very fatigued, weak, lightheaded/dizzy- both /patient agree it's likely due to little PO intake due to N/V. She does not remember her syncopal event. heard her fall and immediately went to get her- he notes she was "very out of it." She discontinued her chemotherapy prior to last admission due to side effects- she is to f/u w/ Dr. Stewart at the beginning of April to discuss starting chemo again on lower dose. Patient denies any fever, chills, sweats, vision changes, CP, palpitations, edema, SOB, wheezing, cough, abdominal pain, urinary symptoms, melena, numbness/ tingling, muscle/joint pain, anxiety/depression, active bleeding, or new skin discoloration/changes. (Vickie Watkins ., PA-C) Medications Current Inpatient Medications Medications (Trade) Dose Ordered Sig/Jimmy Route Start Time Stop Time Status Last Admin Dose Admin Sodium Chloride 1,000 ml @ 80 mls/hr [id number] IV 04/17/17 04:15 05/17/17 04:14 04/17/17 04:26 80 MLS/HR Acetaminophen (Tylenol Tab) 650 mg Q4H PRN PO 04/17/17 03:30 05/17/17 03:29 Al Hydrox/Mg Hydrox/Simethicone (Maalox Max Susp) 15 ml Q4H PRN PO 04/17/17 03:30 05/17/17 03:29 Magnesium Hydroxide (Milk Of Magnesia Susp) 30 ml Q12H PRN PO 04/17/17 03:30 05/17/17 03:29 Ondansetron HCl (Zofran Inj) 4 mg Q6H PRN IV 04/17/17 03:30 05/17/17 03:29 04/17/17 12:11 4 MG Nitroglycerin (Nitrostat Tab) 0.4 mg UD PRN SL 04/17/17 03:30 05/17/17 03:29 Polyethylene (Miralax Powder Packet) 17 gm DAILY PRN PO 04/17/17 03:30 05/17/17 03:29 Aspirin (Ecotrin Tab) 81 mg QAM PO 04/17/17 09:00 05/17/17 08:59 04/17/17 08:33 81 MG Benzonatate (Tessalon Perles Cap) 100 mg TID PRN PO 04/17/17 03:30 05/17/17 03:29 Epinephrine (Epipen) 0.3 mg UD PRN IM 04/17/17 03:30 05/17/17 03:29 Hydrocodone Bit/ Homatropine Methylb (Hycodan Syrup) 5 ml Q4H PRN PO 04/17/17 03:30 05/01/17 03:29 Isosorbide Mononitrate (Imdur Ext Rel Tab) 60 mg QAM PO 04/17/17 09:00 05/17/17 08:59 04/17/17 08:31 60 MG Metoprolol Tartrate (Lopressor Tab) 75 mg BID PO 04/17/17 09:00 05/17/17 08:59 04/17/17 08:33 75 MG Multivitamins/ Minerals (Multivitamin W/ Minerals Tab) 1 tab QPM PO 04/17/17 21:00 05/17/17 20:59 Potassium Chloride (Klor-Con Tab) 10 meq TID PO 04/17/17 09:00 05/17/17 08:59 04/17/17 14:23 10 MEQ Prednisone (PredniSONE TAB) 3 mg QAM PO 04/17/17 09:00 05/17/17 08:59 Future Hold 04/17/17 08:33 3 MG Raloxifene HCl (Evista Tab) 60 mg QPM PO 04/17/17 21:00 05/17/17 20:59 Simvastatin (Zocor Tab) 40 mg HS PO 04/17/17 21:00 05/17/17 20:59 Tramadol HCl (Ultram Tab) 50 mg Q4H PRN PO 04/17/17 03:30 05/17/17 03:29 Albuterol (Ventolin Hfa Inhaler) 2 puffs BID INH 04/17/17 09:00 05/17/17 08:59 04/17/17 08:34 2 PUFFS Calcium/Vitamin D (Caltrate Plus Tab) 1 tab BID17 PO 04/17/17 09:00 05/17/17 08:59 04/17/17 08:33 1 TAB Miscellaneous Information (Order Awaiting Action) 1 ea QS N/A 04/17/17 08:00 05/17/17 07:59 Magnesium Oxide (Mag-Ox Tab) 400 mg DAILY PO 04/17/17 09:00 05/17/17 08:59 04/17/17 08:31 400 MG Prochlorperazine Maleate (Compazine Tab) 10 mg DAILY PRN PO 04/17/17 03:30 05/17/17 03:29 Miscellaneous (Iv Fluids Completed) 1 ea PRN PRN N/A 04/17/17 04:45 04/17/18 04:44 Heparin Sodium (Porcine) (Heparin Sq 5000 Unit/0.5ml) 5,000 unit Q12 SQ 04/17/17 09:00 05/17/17 08:59 04/17/17 08:31 5,000 UNIT Hydrocortisone Sodium Succinate 12.5 mg/Syringe 0.25 ml @ 4 mls/min Q8H IV 04/17/17 14:45 04/18/17 14:44 UNV (Vickie Watkins PA-C) Objective Vital Signs Date Time Temp Pulse Resp B/P (MAP) Pulse Ox O2 Delivery O2 Flow Rate FiO2 04/17/17 12:00 Room Air 04/17/17 11:42 36.8 79 18 92/61 (71) 93 Room Air 83 97/63 (74) 84 93/62 (72) 04/17/17 08:00 Room Air 04/17/17 07:44 36.5 82 19 100/67 (78) 90 Room Air 04/17/17 06:00 89 100/68 (79) 96 84 101/68 (79) 87 81/59 (66) 04/17/17 04:00 94 Nasal Cannula 3.0 04/17/17 03:45 94 18 104/74 98 04/17/17 03:30 37.2 89 18 102/69 (80) 91 Nasal Cannula 3.0 04/17/17 03:00 93 18 104/74 95 Room Air 04/17/17 01:21 102 04/17/17 01:20 88 Nasal Cannula 2.0 04/17/17 01:09 37.0 100 24 126/84 93 Room Air (Vickie Watkins, PA-C) Physical Exam General Appearance: no apparent distress, + thin Eyes: normal inspection, PERRL ENT: hearing grossly normal Neck: supple Respiratory/Chest: lungs clear, no respiratory distress, no accessory muscle use, + decreased breath sounds (throughout all lung day ) Cardiovascular: regular rate, rhythm, + systolic murmur Abdomen: normal bowel sounds, non tender, soft Extremities: no pedal edema, no calf tenderness Neurologic/Psychiatric: alert, normal mood/affect, oriented x 3 Skin: normal color, warm/dry, no rash (Vickie Watkins ., PA-C) Laboratory Results Last 24 Hours Test 04/17/17 01:50 04/17/17 03:35 04/17/17 09:38 White Blood Count 10.65 K/uL Red Blood Count 3.55 M/uL Hemoglobin 11.2 g/dL Hematocrit 33.1 % Mean Corpuscular Volume 93.2 fL Mean Corpuscular Hemoglobin 31.5 pg Mean Corpuscular Hemoglobin Concent 33.8 g/dl Platelet Count 142 K/uL Mean Platelet Volume 10.2 fL Neutrophils (%) (Auto) 87.6 % Lymphocytes (%) (Auto) 4.3 % Monocytes (%) (Auto) 7.6 % Eosinophils (%) (Auto) 0.1 % Basophils (%) (Auto) 0.1 % Neutrophils # (Auto) 9.33 K/uL Lymphocytes # (Auto) 0.46 K/uL Monocytes # (Auto) 0.81 K/uL Eosinophils # (Auto) 0.01 K/uL Basophils # (Auto) 0.01 K/uL RDW Standard Deviation 50.9 fL RDW Coefficient of Variation 14.9 % Immature Granulocyte % (Auto) 0.3 % Immature Granulocyte # (Auto) 0.03 K/uL Toxic Vacuolation OCCASIONAL Prothrombin Time 13.1 SECONDS Prothromb Time International Ratio 1.3 Sodium Level 133 mmol/L Potassium Level 4.0 mmol/L Chloride Level 100 mmol/L Carbon Dioxide Level 26 mmol/L Anion Gap 7.0 mmol/L Blood Urea Nitrogen 15 mg/dl Creatinine 1.10 mg/dl Est Creatinine Clear Calc Drug Dose 31.1 ml/min Estimated GFR () 57.7 Estimated GFR (Non- 49.8 BUN/Creatinine Ratio 13.4 Random Glucose 130 mg/dl Calcium Level 8.8 mg/dl Magnesium Level 1.5 mg/dl Total Bilirubin 0.7 mg/dl Aspartate Amino Transf (AST/SGOT) 33 U/L Alanine Aminotransferase (ALT/SGPT) 19 U/L Alkaline Phosphatase 64 U/L Troponin I 0.981 ng/ml 2.470 ng/ml Total Protein 6.3 gm/dl Albumin 2.6 gm/dl Globulin 3.7 gm/dl Albumin/Globulin Ratio 0.7 Thyroid Stimulating Hormone (TSH) 2.030 uIu/ml Urine Color YELLOW Urine Appearance CLOUDY Urine pH 5.0 Urine Specific [place] 1.013 Urine Protein TRACE Urine Glucose (UA) NEG Urine Ketones NEG Urine Occult Blood TRACE Urine Nitrite NEG Urine Bilirubin NEG Urine Urobilinogen NEG Urine Leukocyte Esterase MODERATE Urine WBC (Auto) >30 /hpf Urine RBC (Auto) 0-4 /hpf Urine Hyaline Casts (Auto) 0 /lpf Urine Epithelial Cells (Auto) 5-10 /lpf Urine Bacteria (Auto) 3+ Urine Pathogenic Casts /lpf Urine Yeast (Auto) (Vickie Watkins, PA-C) Assessment and Plan Patient is a pleasant 71 y/o female, with PMHx of CAD s/p CABG x4 vessel, HLD, HTN, b-cell lymphoma, chronic cough, immunodeficiency disorder, Sjgren syndrome , and osteoporosis, who presented to the ED due to syncopal event. Patient was most recently admitted to [facility] on 04/10-04/12 due to colitis w/ diarrhea and dehydration secondary to chemotherapy. Syncopal event, likely secondary to dehydration: - Admitted to [facility] for cardiac monitoring - Trending cardiac enzymes- trop 0.981--> 2.49- likely secondary to demand ischemia - EKG QAM and PRN for chest pain - IV NSS @ 80 ml/hr - ECHO pending - Cardiology consulted, appreciate recommendations -- Continue to follow at this time- may need longer cardiac monitoring in future Hypotension, ?secondary to dehydration vs adrenal insufficiency on chronic Prednisone: - Continue IVF - HCTZ held - Hypotensive medications w/ hold parameters - IV Hydrocortisone 12.5 mg q8 hrs x1 day, then resume chronic Prednisone Mild hyponatremia at 133, likely secondary to dehydration: IVF as above, follow PRP Hypomagnesium at 1.5: Replaced w/ IV Mag 1 gm x2 + Mag-Ox 400 mg daily- follow mag level and replace PRN UA dirty: UCx pending- no urinary symptoms, not septic- will hold on antibiotics pending UCx 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 Stewart: Currently not receiving chemotherapy or radiation Oral mucositis secondary to chemotherapy: Magic mouthwash Fungal PNA, ANTONIETTA infection- following w/ Dr. Jon CAD s/p CABG x4 vessel, HLD, HTN: Continue Metoprolol 75 mg BID and Imdur 60 mg daily w/ hold parameters, Zocor 40 mg CKD stage III- baseline Cr. 1.2- STABLE Immunodeficiency disorder: Continue Hyzentra injections weekly on Fridays Sjgren syndrome: Prednisone 3 mg daily held as above, Evoxac 30 mg TID Osteoporosis: Raloxifene 60 mg daily GI prophylaxis: Protonix daily DVT prophylaxis: Heparin SQ BID Code Status: LEVEL I, FULL Dispo: From home, lives w/ - PT/OT and CM consulted (Vickie Watkins, SHIRLEY) Reviewed: Pt Seen/Exam by Me (Deborah Lynch MD) History Physician Catalogue And Special Products Manager Supervision Note: I interviewed and examined the patient. Discussed with CHARLES Watkins and agree with findings and plan as documented in the note. Any exceptions or clarifications are listed here: Patient feeling better now. She was able to tolerate some food for dinner, mostly clear and full liquids. She denies any chest pain or shortness of breath. At the time I saw her, her echocardiogram had just been red and was showing some new wall motion abnormalities and a mildly reduced LV EF that was changed from 2 weeks ago. Her most recent troponin had actually trended back downward to 1.6. I discussed the case with the proof technician helper that read the echocardiogram. She does have underlying CAD, but no ongoing chest pain or definite ischemic changes on her ECG. Decided to not heparinize her at this time. She remains on her aspirin, statin, and beta javan. Vitals reviewed, telemetry with normal sinus rhythm No acute distress, sitting up in bed and very pleasant, alert awake oriented 3 Regular rate and rhythm, no murmurs rubs or gallops Lungs clear to auscultation bilaterally, no wheezes crackles or rhonchi Abdomen positive bowel sounds soft nontender nondistended Extremities no edema ECGs reviewed ECHO: 1. Normal LV size, mild concentric LVH. * 2. Mild LV dysfunction. LVEF 45-50%. LAD distribution wall motion abnormality (see below for details). * 3. Normal RV size, mild RV dysfunction. * 4. Grade II diastolic dysfunction. * 5. Mild mitral regurgitation. Mild PI. * 6. Mild TR. Normal estimated PA and RA pressures. * 7. Compared with prior study on 04/02/2017: LAD distribution wall motion abnormality is new. 72-year-old female with a history of B-cell lymphoma in remission, newly diagnosed adenocarcinoma of the lung that is metastatic and currently undergoing chemotherapy, CAD s/p CABG, hypertension, chronic diastolic CHF, immunodeficiency disorder, Sjogren's syndrome, osteoporosis, here with nausea/ vomiting, dehydration, and syncope. Now also found to have NSTEMI with new WMAs on ECHO in the LAD distribution, and new systolic CHF with EF 45-50%. Her troponin is artery trending back down after peaking at 2.4. -Continue aspirin, high intensity statin, beta javan, Imdur -Will not place her on heparin drip at this time as per my discussion with cardiology -Monitor on telemetry for 48 hours from the time of her cardiac event, no need for urgent cardiac catheterization at this point especially in light of the fact that she is undergoing chemotherapy and may not be able to tolerate dual antiplatelet therapy if stents are required -Syncope likely to hypovolemia and orthostasis-improving with IV fluids Documented By: Deborah Lynch (Deborah Lynch MD)
[2017-04-17] MEDS ORDERED: PANTOprazole SOD 40 MG TAB PO ONE (15:15)
[2017-04-17] MEDS ORDERED: DEXAMETHASONE CONC SOLN 3.75 MG, NYSTATIN SUSP 30 ML, DiphenhydrAMINE HCL SYRUP 300 MG,... PO PRN ×5 (15:15)
[2017-04-17] MEDS: HYDROCORTISONE IV 12.5 MG in SYRINGE 0 ML IV SCH (15:50)
[2017-04-17] MEDS: PROCHLORPERAZINE MALEATE 10 MG TAB PO PRN (15:53)
--- NOTE | 2017-04-17 16:00 | NUR ---
A: Patient alert and oriented sitting in the chair. Patient up to the bathroom and steady on feet. Yellow socks applied. Patient educated on calling before getting up, patient verbalized understanding. Lungs clear. No c/o SOB. Patient SR. BP stable. Patient c/o mild nausea. Compazine given per orders. Left chest port patent infusing NSS @80. Skin intact. Patient denies any further needs at this time. Will continue to monitor.
--- NOTE | 2017-04-17 16:19 | NUR ---
Pt screened for MUST. Please refer to linked assessment Addendum: 04/17/17 at [address] Amended: Links added.
--- NOTE | 2017-04-17 16:57 | ECHOCARDIOGRAM REPORT ---
*NOTICE TO RECEIVING [employer] This information is strictly Confidential and protected under [place] law. [place] law prohibits you from making any further disclosure of this information unless further disclosure is expressly permitted by the written consent of the person to whom it pertains or is authorized by law. A general authorization for the release of medical or other information is not sufficient for this purpose. Hospital accepts no responsibility if the information is made available to any other person, INCLUDING THE PATIENT. Interpretation Summary * Conclusions -- * 1. Normal LV size, mild concentric LVH. * 2. Mild LV dysfunction. LVEF 45-50%. LAD distribution wall motion abnormality (see below for details). * 3. Normal RV size, mild RV dysfunction. * 4. Grade II diastolic dysfunction. * 5. Mild mitral regurgitation. Mild PI. * 6. Mild TR. Normal estimated PA and RA pressures. * 7. Compared with prior study on 04/02/2017: LAD distribution wall motion abnormality is new. Procedure Details * A complete two-dimensional transthoracic echocardiogram was performed (2D, M-mode, Doppler and color flow Doppler). Left Ventricle * The left ventricle is normal in size. * There is mild concentric left ventricular hypertrophy. * The basal septum is thickened and angulated consistent with sigmoid septum. * Ejection Fraction = 45-50%. * Akinetic mid anteroseptum, septum and apical septum. Mild mid-apical anterior hypokinesis. Right Ventricle * The right ventricle is grossly normal size. * The right ventricular systolic function is mildly reduced. Atria * The left atrium is borderline dilated. * Right atrial size is normal. * No ASD detected; PFO is not assessed. Mitral Valve * The mitral valve is grossly normal. * There is no mitral valve stenosis. * There is mild mitral regurgitation. Tricuspid Valve * The tricuspid valve is not well visualized, but is grossly normal. * There is no tricuspid stenosis. * There is mild tricuspid regurgitation. Aortic Valve * The aortic valve is trileaflet. * Aortic valve sclerosis mild, without significant aortic valvular stenosis. * No hemodynamically significant valvular aortic stenosis. * There is no significant aortic regurgitation. Pulmonic Valve * The pulmonary valve is inadequately visualized, but the Doppler data is adequate for interpretation. * There is no pulmonic valvular stenosis. * Mild pulmonic valvular regurgitation. Great Vessels * The aortic root and proximal ascending aorta are normal sized. Pericardium/Pleural * There is no pericardial effusion. Great Vessels * There is no evidence of pulmonary hypertension. The PA systolic pressure is less than 36 mmHg. Left Ventricular Diastolic Function * Diastolic dysfunction, Grade II (pseudonormalization pattern). MMode 2D Measurements and Calculations IVSd 1.5 cm IVSs 1.2 cm LVIDd 3.5 cm LVIDs 2.9 cm LVPWd 1.2 cm LVPWs 1.5 cm IVS/LVPW 1.2 FS 15.4 % EDV(Teich) 49.3 ml ESV(Teich) 32.9 ml EF(Teich) 33.3 % EDV(cubed) 41.2 ml ESV(cubed) 25.0 ml EF(cubed) 39.4 % % IVS thick -18.75 % % LVPW thick 19.4 % LV mass(C)d 158.0 grams LV mass(C)dI 116.1 grams/m\S\2 LV mass(C)s 123.0 grams LV mass(C)sI 90.4 grams/m\S\2 SV(Teich) 16.4 ml SI(Teich) 12.1 ml/m\S\2 SV(cubed) 16.2 ml SI(cubed) 11.9 ml/m\S\2 Ao root diam 2.8 cm Ao root area 6.1 cm\S\2 ACS 1.7 cm LA dimension 3.8 cm LA/Ao 1.3 LVOT diam 1.9 cm LVOT area 2.8 cm\S\2 LVAd ap4 28.0 cm\S\2 LVLd ap4 7.0 cm EDV(MOD-sp4) 91.4 ml EDV(sp4-el) 94.9 ml LVAs ap4 18.8 cm\S\2 LVLs ap4 6.1 cm ESV(MOD-sp4) 47.1 ml ESV(sp4-el) 49.1 ml EF(MOD-sp4) 48.5 % EF(sp4-el) 48.3 % LVAd ap2 25.6 cm\S\2 LVLd ap2 6.9 cm EDV(MOD-sp2) 78.7 ml EDV(sp2-el) 80.9 ml LVAs ap2 16.7 cm\S\2 LVLs ap2 5.7 cm ESV(MOD-sp2) 40.5 ml ESV(sp2-el) 41.5 ml EF(MOD-sp2) 48.5 % EF(sp2-el) 48.7 % LVLd %diff -1.62 % EDV(MOD-bp) 84.8 ml LVLs %diff -7.67 % ESV(MOD-bp) 45.4 ml EF(MOD-bp) 46.5 % SV(MOD-sp4) 44.4 ml SI(MOD-sp4) 32.6 ml/m\S\2 SV(MOD-sp2) 38.1 ml SI(MOD-sp2) 28.0 ml/m\S\2 SV(MOD-bp) 39.4 ml SI(MOD-bp) 28.9 ml/m\S\2 SV(sp4-el) 45.8 ml SI(sp4-el) 33.6 ml/m\S\2 SV(sp2-el) 39.4 ml SI(sp2-el) 28.9 ml/m\S\2 Doppler Measurements and Calculations MV E max arti 84.1 cm/sec MV A max arti 63.6 cm/sec MV E/A 1.3 MV P1/2t max arti 94.9 cm/sec MV P1/2t 62.9 msec MVA(P1/2t) 3.5 cm\S\2 MV dec slope 441.6 cm/sec\S\2 MV dec time 0.20 sec Ao V2 max 125.8 cm/sec Ao max PG 6.3 mmHg Ao max PG (full) 3.6 mmHg CARIE(V,A) 1.9 cm\S\2 CARIE(V,D) 1.9 cm\S\2 LV V1 max PG 2.8 mmHg LV V1 max 83.0 cm/sec MR max arti 410.9 cm/sec MR max PG 67.5 mmHg PA V2 max 70.7 cm/sec PA max PG 2.0 mmHg TR max arti 216.1 cm/sec
[2017-04-17] MEDS ORDERED: ZOLPIDEM TARTRATE 5 MG TAB PO PRN (18:45)
--- NOTE | 2017-04-17 20:00 | NUR ---
A: Previous assessment unchanged. Patient up with assist to the bathroom for PM care. Patient now resting in bed and requested Ambien. medication given. Patient educated on fall risk while taking this medication. Bed alarm on. Patient agrees to ring for assistance. VS remain stable. Patient denies any further needs at this time. Will continue to monitor.
[2017-04-17] MEDS: CEROVITE ADV FORMULA TAB PO SCH (20:03)
[2017-04-17] MEDS: SIMVASTATIN 40 MG TAB PO SCH (20:03)
[2017-04-17] MEDS: RALOXIFENE 60 MG TAB PO SCH (20:04)
--- NOTE | 2017-04-17 23:59 | NUR ---
A: Assessment completed, full assessment in the EMR. patient is resting comfortably, she was given ambien to help sleep and this is working well. Denies any pain or discomfort, no other needs at this time, call marocs within reach.
[2017-04-18] MEDS: HYDROCORTISONE IV 12.5 MG in SYRINGE 0 ML IV SCH ×2 (00:10→08:08)
[2017-04-18] MEDS: SODIUM CHLORIDE 0.9% 1000ML 1,000 ML IV SCH (03:00)
[2017-04-18 04:02] VITALS: BP 124/79; PULSE 87; TEMP 36.9; O2SAT 95
[2017-04-18 04:19] LABS: CALCIUM 7.4 mg/dl (8.5-10.1); CREATININE 0.88 mg/dl (0.60-1.20); POTASSIUM 4.1 mmol/L (3.5-5.1)
[2017-04-18 07:10] VITALS: BP 109/72; PULSE 82; TEMP 37.1; O2SAT 97
[2017-04-18] MEDS: CEVIMELINE~ORDER AWAITING ACTION SCH ×3 (08:00→16:00)
--- NOTE | 2017-04-18 08:00 | NUR ---
Patient awake and alert. Shivering profusely; afebrile. She feels warm (not feverish); says she "sometimes gets like this" where she is "freezing" and can't get warmed up. Denies chest pain. Pulses palpable. Monitor difficult to interpret due to the shivering, but appears to be sinus tachycardia- 100's-110's. No edema. Lung sounds are clear. No respiratory distress noted. She is on RA. +BS x 4. Reports a decreased appetite. Denies nausea. Voiding in restroom. Skin intact. A-port left chest intact and infusing NS @ 80. Explained plan for day. Gave patient several warm blankets. Call marcos within reach. Will continue to monitor closely.
[2017-04-18] MEDS: ISOSORBIDE MONONITRATE 60 MG TABCR PO SCH (08:08)
[2017-04-18] MEDS: CALCIUM 600MG + VIT D 400 IU TAB PO SCH ×2 (08:08→16:19)
[2017-04-18] MEDS: ASPIRIN 81 MG ECTAB PO SCH (08:08)
[2017-04-18] MEDS: POTASSIUM CHLORIDE 20 MEQ TABCR PO SCH ×3 (08:09→21:00)
[2017-04-18] MEDS: PANTOprazole SOD 40 MG TAB PO SCH (08:10)
[2017-04-18] MEDS: METOPROLOL TARTRATE 50 MG TAB PO SCH ×2 (08:10→22:11)
[2017-04-18] MEDS: MAGNESIUM OXIDE 400 MG TAB PO SCH (08:11)
[2017-04-18] MEDS: HEPARIN SOD 5000 UNIT/0.5 ML CARP SQ SCH ×2 (08:12→21:00)
[2017-04-18] MEDS: ALBUTEROL HFA 8 GM INHALER INH SCH ×2 (08:14→21:00)
[2017-04-18] MEDS: ONDANSETRON INJ 2 MG/ML 2 ML VIAL IV PRN ×2 (09:27→19:30)
--- NOTE | 2017-04-18 09:30 | NUR ---
Patient vomited while security tech here performing EKG. She reported some chest pain around 0900, but now says it is gone. Sheridanan given. EKG done. Spoke with Dr. Lynch- she is attempting to reach on-call manager environmental affairs. Patient cleaned. Will continue to monitor closely.
--- NOTE | 2017-04-18 10:44 | Cardiology Follow-Up ---
Subjective General Date of Service: Apr 18, 2017. Pt evaluation today including: conversation w/ patient, chart review, lab review, review of studies, conversation w/ it architecture consultant History of Present Illness The patient is a 72 year old female with N/V, dehydration, ongoing chemo for lung CA. Allergies Coded Allergies: No Known Allergies (Unverified , 04/17/17) Social History Smoking Status: Never Smoker Hx Tobacco Use In Past Year?: No Hx Alcohol Use - Type And Amou: No Hx Substance Use - Type And Am: No Problem List Medical Problems: (1) Common bile duct dilation Status: Acute (2) Elevated troponin Status: Acute (3) Elevated troponin Status: Acute (4) Epigastric abdominal pain Status: Acute (5) Fall Status: Acute (6) Hypomagnesemia Status: Acute (7) Precordial chest pain Status: Acute Review of Systems Respiratory: + cough, No shortness of breath, No dyspnea at rest Cardiac: No chest pain, No edema, No palpitations Additional ROS Details: Walks to bathroom with no dizziness or CP. Physical Exam Vital Signs Last Vital Signs Documentation Date Time Temp Pulse Resp B/P (MAP) Pulse Ox O2 Delivery O2 Flow Rate FiO2 04/18/17 08:00 Room Air 04/18/17 07:10 37.1 82 16 109/72 (84) 97 04/17/17 04:00 3.0 Physical Exam Constitutional: General Apperance: heathly-appearing Level of Distress: NAD Psychiatric: Mental Status: active & alert Eyes: EOM: EOMI Lungs: Respiratory effort: no dyspnea Auscultation: no wheezing, rhonchi (right lung field) Cardiovascular: Heart Auscultation: RRR, no rubs, no gallops, II/ WSM Abdomen: Bowel Sounds: normal Inspection & Palpation: soft, no tenderness, guarding & rebound, no masses Extremities: no edema Assessment and Plan Assessment and Plan 1) ? Rate related RBBB with LAFB 2) New EKG changes V1-V3 -- ? ischemic or repolarization from BBB 3) Small troponin spill 4) 2010, catheterization demonstrated severe triple vessel coronary artery 5) CABG 4 at [facility] in November 2010. She had a CUTLER to the LAD, saphenous vein grafts to the diagonal, circumflex and right coronary arteries. 6) catheterization in January 2013, at that time all grafts were patent and her left ventricular function was normal. 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 She was treated with chemotherapy with remission. 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 She was started on afatinib and developed diarrhea with dehydration. Echo this admit with septal abnormalities and decline in EF -- ?? Ischemia based on EKG changes and potentially ischemia prior to the touchdown of the CUTLER graft or related to RBBB Given Stage 4 lung CA I would try and treat medically especially given concerns with rsik of low PLTs with chemo and the need for DAPT On good meds, BP and HR ok, ambulate and she how she feels; keep one more day and follow EKG which looks worse today compared to yesterday D/w primary service ?? Infection with right sided lung sounds and rigors this am--Possible aspiration with vomiting Laboratory Results Last 24 Hours Test 04/17/17 15:17 04/17/17 21:10 04/18/17 03:35 Troponin I 1.630 ng/ml 1.300 ng/ml 0.890 ng/ml Sodium Level 135 mmol/L Potassium Level 4.1 mmol/L Chloride Level 106 mmol/L Carbon Dioxide Level 25 mmol/L Anion Gap 4.0 mmol/L Blood Urea Nitrogen 10 mg/dl Creatinine 0.88 mg/dl Est Creatinine Clear Calc Drug Dose 38.8 ml/min Estimated GFR () 75.5 Estimated GFR (Non- 65.2 BUN/Creatinine Ratio 11.4 Random Glucose 120 mg/dl Calcium Level 7.4 mg/dl Magnesium Level 2.0 mg/dl Triglycerides Level 144 mg/dl Cholesterol Level 65 mg/dl HDL Cholesterol 12 mg/dl LDL Cholesterol, Calculated 24 mg/dl VLDL Cholesterol, Calculated 29 mg/dl Cholesterol/HDL Ratio 5.4
--- NOTE | 2017-04-18 11:00 | NUR ---
Patient feeling much better. Just ambulated around unit with float RN (ambulated about 300 feet). O2 sats on RA 94%. She said the forest botany instructor was in and encouraged her to ambulate. Will continue to monitor.
[2017-04-18 11:32] VITALS: BP 93/62; PULSE 96; TEMP 37.4; O2SAT 92
--- NOTE | 2017-04-18 12:00 | NUR ---
Patient doing well. SR on monitor. Denies CP/pressure. Nausea resolved. Eating lunch- states appetite is better. Feeling better overall. Denies needs. Will continue to monitor.
--- NOTE | 2017-04-18 12:30 | Hospitalist Progress Note ---
Hospitalist Progress Note Date of Service Apr 18, 2017. Subjective Pt evaluation today including: conversation w/ patient, conversation w/ forestry consultant (Cardiology) Pt had some shaking chills this AM, then had a coughing fit and some post- tussive emesis. Now feeling better, no fever, no more shaking,has a chronic cough. Not feleing nauseated, is eating lunch. No abd pain. Had some chest tightness while she was shaking. Repeat ECG showed some anterior TWIs changed from previous. D/w Cardiology. All Other Systems: Reviewed and Negative Objective Vital Signs Date Time Temp Pulse Resp B/P (MAP) Pulse Ox O2 Delivery O2 Flow Rate FiO2 04/18/17 11:32 37.4 96 20 93/62 (72) 92 04/18/17 08:00 Room Air 04/18/17 07:10 37.1 82 16 109/72 (84) 97 Room Air 04/18/17 04:18 Room Air 04/18/17 04:02 36.9 87 17 124/79 (94) 95 Room Air 04/17/17 23:59 Room Air 04/17/17 23:10 36.7 75 17 94/66 (75) 96 Room Air 04/17/17 20:00 Room Air 04/17/17 19:48 36.8 84 16 91/58 (69) 95 Room Air 04/17/17 16:00 Room Air 04/17/17 15:41 36.4 82 18 104/69 (81) 96 Room Air 04/17/17 12:00 Room Air Physical Exam General Appearance: WD/WN, no apparent distress (no longer shaking, sitting at side of bed) Eyes: normal inspection, sclerae normal ENT: hearing grossly normal Neck: trachea midline Respiratory/Chest: no respiratory distress, no accessory muscle use, + crackles (mild, at bilat bases) Cardiovascular: regular rate, rhythm, no edema, + systolic murmur (2/6) Abdomen: normal bowel sounds, non tender, soft Extremities: normal inspection, no pedal edema, no calf tenderness Neurologic/Psychiatric: alert, normal mood/affect, oriented x 3 Skin: normal color, warm/dry, no rash Laboratory Results Last 24 Hours Test 04/17/17 15:17 04/17/17 21:10 04/18/17 03:35 Troponin I 1.630 ng/ml 1.300 ng/ml 0.890 ng/ml Sodium Level 135 mmol/L Potassium Level 4.1 mmol/L Chloride Level 106 mmol/L Carbon Dioxide Level 25 mmol/L Anion Gap 4.0 mmol/L Blood Urea Nitrogen 10 mg/dl Creatinine 0.88 mg/dl Est Creatinine Clear Calc Drug Dose 38.8 ml/min Estimated GFR () 75.5 Estimated GFR (Non- 65.2 BUN/Creatinine Ratio 11.4 Random Glucose 120 mg/dl Calcium Level 7.4 mg/dl Magnesium Level 2.0 mg/dl Triglycerides Level 144 mg/dl Cholesterol Level 65 mg/dl HDL Cholesterol 12 mg/dl LDL Cholesterol, Calculated 24 mg/dl VLDL Cholesterol, Calculated 29 mg/dl Cholesterol/HDL Ratio 5.4 Assessment and Plan This pt is a 72-year-old female with a history of B-cell lymphoma in remission, newly diagnosed adenocarcinoma of the lung that is metastatic and currently undergoing chemotherapy, CAD s/p CABG, hypertension, chronic diastolic CHF, immunodeficiency disorder, Sjogren's syndrome, osteoporosis, here with nausea/ vomiting, dehydration, and syncope. She was recently admitted to [facility] on 04/10- 04/12 due to colitis w/ diarrhea and dehydration secondary to chemotherapy. Now also found to have NSTEMI with new WMAs on ECHO in the LAD distribution, and new systolic CHF with EF 45-50%. Her troponin is trending back down after peaking at 2.4. ECHO: 1. Normal LV size, mild concentric LVH. * 2. Mild LV dysfunction. LVEF 45-50%. LAD distribution wall motion abnormality (see below for details). * 3. Normal RV size, mild RV dysfunction. * 4. Grade II diastolic dysfunction. * 5. Mild mitral regurgitation. Mild PI. * 6. Mild TR. Normal estimated PA and RA pressures. * 7. Compared with prior study on 04/02/2017: LAD distribution wall motion abnormality is new. CAD/NSTEMI/New systolic CHF/Chronic diastolic CHF/Chest tightness/HTN/HL-h/o CABG, now with small trop leak, some possible rate-related ECG changes vs RBBB associated TWIs as per Cardio. CP-free currently but had some CP AM of 04/18/. Troponin trending downward.Abnormal ECGs Given ongoing chemotherapy and CA, will do conservative med management at this point to avoid need for DAPT i.e. no cardiac cath at this time -Continue aspirin, high intensity statin, beta javan, Imdur -Will not place her on heparin drip at this time as per my discussion with cardiology -Monitor on telemetry for 48 hours from the time of her cardiac event through AM of 04/19 -would need ACEI but not currently given some low BPs Syncope/Nausea/vomiting related to chemotherapy- syncope likely secondary to dehydration/N/V,hypovolemia and orthostasis-improving with IV fluids.N/V resolved except for one post-tussive emesis today -continue tele monitoring -gave 1 day of stress dosed steroids HC due to chronic prednisone use - discontinue IVFs given new CHF - HCTZ held Mild hyponatremia at 133, likely secondary to dehydration: IVF given, now resolved -follow PRP Hypomagnesium at 1.5: Replaced w/ IV Mag 1 gm x2 + Mag-Ox 400 mg daily--resolved -follow Mg, replace prn Abnormal UA-no urine culture ever sent off, asymptomatic -given immunocompromised state, repeat UA now and Ur cx if indicated, treat if abnormal Metastatic adenocarcinoma of lung- following w/ Dr. Stewart: on chemotherapy -f/u Oncology after dc Oral mucositis secondary to chemotherapy: Magic mouthwash -improved Fungal PNA, ANTONIETTA infection- following w/ Dr. Jon, not on therapy due to unclear if active infection CKD stage III- baseline Cr. 0.88- STABLE -renally dose meds Immunodeficiency disorder: Continue Hyzentra injections weekly on Fridays Sjgren syndrome: Prednisone 3 mg daily, Evoxac 30 mg TID after dc (home med) Osteoporosis:stable -continue Raloxifene 60 mg daily GI prophylaxis: Protonix daily DVT prophylaxis: Heparin SQ Code Status: LEVEL I, FULL Dispo: From home, lives w/ - PT/OT and CM consulted , discharge hopefully to home in 1 day
[2017-04-18 15:35] VITALS: BP 102/70; PULSE 94; TEMP 36.7; O2SAT 94
[2017-04-18] MEDS ORDERED: CEFTRIAXONE SOD INJ 1 GM in DEXTROSE 5% ADD-VANTAGE 50ML 50 ML IV SCH (16:00)
--- NOTE | 2017-04-18 16:00 | NUR ---
Patient doing well; in NAD. Continues in NSR on monitor. Denies any CP/pressure. Denies SOB. Sats WNL on RA. Tolerating diet- appetite improving. Voiding without issue; however, urine was sent for UA and it appears she has a UTI- Rocephin started. A-port saline locked at this time. Patient has been ambulating frequently around the unit. Denies needs. Hopeful that this UTI will not keep her from going home tomorrow. Will continue to monitor.
--- NOTE | 2017-04-18 20:00 | NUR ---
Patient alert and oriented laying in bed. Patient c/o being extremely cold. Patient states this happens at home frequently and starts to shiver badly. Patient has an episode of this this afternoon. Patient states the only thing that helps her is her heated blanket at home. Patient wrapped in warm blankets, patient states she's still cold but feels better. Patient given zofran because she felt nauseas. Earlier this afternoon patient stated she vomited after shivering and coughing. Patient did not have an emesis this evening yet so far. Patient's temp. is normal. Patient currently SR to low ST 105 on monitor. BP stable. Patient denies any CP at this time. Lungs are clear on RA. No coughing observed at this time. Patient has palpable pulses. No edema noted. Patient voiding in toilet adequately. Skin intact. No breakdown noted. Patient has a left chest port that is saline locked. Port flushed and has good blood return. Patient denies any further needs at this time. VS remain stable. Will continue to monitor.
[2017-04-18 20:29] VITALS: BP 131/85; PULSE 112; TEMP 36.7; O2SAT 95
[2017-04-18] MEDS: CEROVITE ADV FORMULA TAB PO SCH (21:00)
[2017-04-18] MEDS: SIMVASTATIN 40 MG TAB PO SCH (21:00)
[2017-04-18] MEDS: RALOXIFENE 60 MG TAB PO SCH (21:00)
--- NOTE | 2017-04-18 21:30 | NUR ---
Patient continues to have nausea and dry heaves. Patient refusing medications at this time.
[2017-04-18] MEDS: PROCHLORPERAZINE MALEATE 10 MG TAB PO PRN (22:10)
[2017-04-18 23:50] VITALS: BP 115/78; PULSE 108; TEMP 37.8; O2SAT 91
--- NOTE | 2017-04-19 | NUR ---
Previous assessment unchanged unless noted. Patient continues to have nausea and dry heaves despite the compazine that was given earlier. Patient sitting up in bed. Patient c/o SOB, SPO2 92%. 2L NC placed on patient. Patient running a low fever. Tylenol given to patient with a sip of water. VS remain stable. Will continue to monitor.
--- NOTE | 2017-04-19 04:00 | NUR ---
Previous assessment unchanged unless noted. Patient currently asleep. No further complaints of nausea. VS remain stable. Patient remains on 2L nc for comfort. Patient appears comfortable. Will continue to monitor.
[2017-04-19 04:52] VITALS: BP 101/70; PULSE 81; TEMP 36.7; O2SAT 97
[2017-04-19 07:08] LABS: HEMOGLOBIN 8.7 g/dL (12.0-16.0); MEAN CELL VOLUME 92.5 fL (80-100); MEAN CORPUSCULAR HGB CONC 33.5 g/dl (32-36); MEAN PLATELET VOLUME 9.8 fL (7.4-10.4); PLATELET COUNT 127 K/uL (130-400); RED CELL DISTRIBUTION WIDTH CV 14.9 % (11.5-14.5); RED CELL DISTRIBUTION WIDTH SD 51.3 fL (36.4-46.3)
[2017-04-19 07:30] LABS: BASO % 0.1 %; BASO ABS # 0.01 K/uL (0-0.2); EOS % 0.2 %; EOS ABS # 0.02 K/uL (0-0.5); IG# 0.02 K/uL (0.00-0.02); LYMPH % 12.6 %; MONO ABS # 1.22 K/uL (0.11-0.59); NEUT % 72.9 %; NEUT ABS # 6.33 K/uL (1.4-6.5)
[2017-04-19 07:38] LABS: CALCIUM 7.6 mg/dl (8.5-10.1); CREATININE 1.08 mg/dl (0.60-1.20); POTASSIUM 4.2 mmol/L (3.5-5.1)
[2017-04-19 07:45] VITALS: BP 108/63; PULSE 71; TEMP 37; O2SAT 96
[2017-04-19] MEDS: CEVIMELINE~ORDER AWAITING ACTION SCH ×2 (08:00)
--- NOTE | 2017-04-19 08:00 | NUR ---
Patient A+Ox4, in NAD. Denies any CP/pressure/palpitations. Pulses palpable. NSR on monitor. No edema. Lung sounds are clear. Sats WNL on RA. Tolerating diet; appetite improving. Denies further nausea. No BM x 3 days, which she says is "fine with me since I was having that diarrhea before." Voiding CYU in restroom. Skin intact. A-port to left chest intact. She has been ambulating around the unit independently. Explained plan for day. Patient really wants to go home. H+H dropped today (8.11/19). Advised patient that I am not sure what discharge plans will be until the doctor comes. Verbalizes understanding. Will continue to monitor.
[2017-04-19] MEDS: ALBUTEROL HFA 8 GM INHALER INH SCH (08:35)
[2017-04-19] MEDS: MAGNESIUM OXIDE 400 MG TAB PO SCH (08:36)
[2017-04-19] MEDS: METOPROLOL TARTRATE 50 MG TAB PO SCH (08:36)
[2017-04-19] MEDS: ISOSORBIDE MONONITRATE 60 MG TABCR PO SCH (08:37)
[2017-04-19] MEDS: POTASSIUM CHLORIDE 20 MEQ TABCR PO SCH ×2 (08:38→13:45)
[2017-04-19] MEDS: CALCIUM 600MG + VIT D 400 IU TAB PO SCH (08:38)
[2017-04-19] MEDS: ASPIRIN 81 MG ECTAB PO SCH (08:38)
[2017-04-19] MEDS: PANTOprazole SOD 40 MG TAB PO SCH (08:39)
[2017-04-19] MEDS: HEPARIN SOD 5000 UNIT/0.5 ML CARP SQ SCH (08:43)
--- NOTE | 2017-04-19 10:41 | Cardiology Follow-Up ---
Subjective General Date of Service: Apr 19, 2017. Pt evaluation today including: conversation w/ patient, chart review, lab review, review of studies History of Present Illness The patient is a 72 year old female Allergies Coded Allergies: No Known Allergies (Unverified , 04/17/17) Social History Smoking Status: Never Smoker Hx Tobacco Use In Past Year?: No Hx Alcohol Use - Type And Amou: No Hx Substance Use - Type And Am: No Problem List Medical Problems: (1) Common bile duct dilation Status: Acute (2) Elevated troponin Status: Acute (3) Elevated troponin Status: Acute (4) Epigastric abdominal pain Status: Acute (5) Fall Status: Acute (6) Hypomagnesemia Status: Acute (7) Precordial chest pain Status: Acute Review of Systems Respiratory: No shortness of breath, No dyspnea at rest Cardiac: No chest pain, No edema, No palpitations Additional ROS Details: Still with Diarrhea, No Vomiting, ambulated in hallway with no complaints Physical Exam Vital Signs Last Vital Signs Documentation Date Time Temp Pulse Resp B/P (MAP) Pulse Ox O2 Delivery O2 Flow Rate FiO2 04/19/17 07:45 37.0 71 18 108/63 (78) 96 04/19/17 04:52 Room Air 04/19/17 04:00 2.0 Physical Exam Constitutional: General Apperance: heathly-appearing Level of Distress: NAD Psychiatric: Mental Status: active & alert Eyes: EOM: EOMI Lungs: Respiratory effort: no dyspnea Auscultation: no wheezing, no rales/crackles, no rhonchi Cardiovascular: Heart Auscultation: RRR, no murmurs, no rubs, no gallops Abdomen: Bowel Sounds: normal Inspection & Palpation: soft, no tenderness, guarding & rebound, no masses Extremities: no edema Assessment and Plan Assessment and Plan 1) ? Rate related RBBB with LAFB 2) New EKG changes V1-V3 -- ? ischemic or repolarization from BBB 3) Small troponin spill 4) 2010, catheterization demonstrated severe triple vessel coronary artery 5) CABG [address] [facility] in November 2010. She had a CUTLER to the LAD, saphenous vein grafts to the diagonal, circumflex and right coronary arteries. 6) catheterization in January 2013, at that time all grafts were patent and her left ventricular function was normal. 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 She was treated with chemotherapy with remission. 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 She was started on afatinib and developed diarrhea with dehydration. Echo this admit with septal abnormalities and decline in EF -- Ischemia based on EKG changes with T wave inversion in the right precordial leads Potentially ischemia prior to the touchdown of the CUTLER graft Given Stage 4 lung CA, declining counts and ongoing chemo; I would try and treat medically especially given concerns with risk of low PLTs with chemo and the need for DAPT Keep Hgb > 9.0 On good meds, BP and HR ok, ambulated and she felt well; EKG looks worse but similar to yesterday ?? Infection with right sided lung sounds and rigors this am--Possible aspiration with vomiting Laboratory Results Last 24 Hours Test 04/18/17 14:15 04/19/17 06:42 Urine Color YELLOW Urine Appearance CLEAR Urine pH 6.0 Urine Specific [place] 1.009 Urine Protein NEG Urine Glucose (UA) NEG Urine Ketones NEG Urine Occult Blood NEG Urine Nitrite NEG Urine Bilirubin NEG Urine Urobilinogen NEG Urine Leukocyte Esterase LARGE Urine WBC (Auto) >30 /hpf Urine RBC (Auto) 0-4 /hpf Urine Hyaline Casts (Auto) 0 /lpf Urine Epithelial Cells (Auto) 5-10 /lpf Urine Bacteria (Auto) 4+ White Blood Count 8.70 K/uL Red Blood Count 2.81 M/uL Hemoglobin 8.7 g/dL Hematocrit 26.0 % Mean Corpuscular Volume 92.5 fL Mean Corpuscular Hemoglobin 31.0 pg Mean Corpuscular Hemoglobin Concent 33.5 g/dl Platelet Count 127 K/uL Mean Platelet Volume 9.8 fL Neutrophils (%) (Auto) 72.9 % Lymphocytes (%) (Auto) 12.6 % Monocytes (%) (Auto) 14.0 % Eosinophils (%) (Auto) 0.2 % Basophils (%) (Auto) 0.1 % Neutrophils # (Auto) 6.33 K/uL Lymphocytes # (Auto) 1.10 K/uL Monocytes # (Auto) 1.22 K/uL Eosinophils # (Auto) 0.02 K/uL Basophils # (Auto) 0.01 K/uL RDW Standard Deviation 51.3 fL RDW Coefficient of Variation 14.9 % Immature Granulocyte % (Auto) 0.2 % Immature Granulocyte # (Auto) 0.02 K/uL Sodium Level 136 mmol/L Potassium Level 4.2 mmol/L Chloride Level 106 mmol/L Carbon Dioxide Level 25 mmol/L Anion Gap 5.0 mmol/L Blood Urea Nitrogen 9 mg/dl Creatinine 1.08 mg/dl Est Creatinine Clear Calc Drug Dose 31.6 ml/min Estimated GFR () 59.0 Estimated GFR (Non- 50.9 BUN/Creatinine Ratio 8.5 Random Glucose 91 mg/dl Calcium Level 7.6 mg/dl Magnesium Level 2.1 mg/dl
[2017-04-19 12:33] VITALS: BP 102/68; PULSE 74; TEMP 36.8; O2SAT 99
[2017-04-19 12:51] LABS: HEMOGLOBIN 9.8 g/dL (12.0-16.0)
[2017-04-19] MEDS ORDERED: ZFR4 SL (13:13)
[2017-04-19] MEDS ORDERED: CEPH-571 PO (13:16)
--- NOTE | 2017-04-19 13:27 | Discharge Instructions ---
Discharge Instructions Date of Service Apr 19, 2017. Admission Reason for Admission: Elevated Troponin, Fall, Hypomagnesemia Discharge Discharge Diagnosis / Problem: Syncope, fall, dehydration Discharge Goals Goal(s): Decrease discomfort, Improve function, Increase independence, Improve disease control, Improve nutritional status, Learn about illness, Diagnostic testing, Therapeutic intervention, Prevent Disease Progression Activity Recommendations Activity Limitations: resume your previous activity . Instructions / Follow-Up Instructions / Follow-Up Urinary tract infection: Keflex 500 mg twice daily until prescription is completed As we have discussed, it is important to drink plenty of fluids and continue to follow a healthy/adequate diet Your triamterene/HCTZ medication has been held during hospitalization due to low blood pressures/dehydration- STOP THIS MEDICATION It is recommended you check your blood pressure 1-2 times daily and keep a log Take this log to your next PCP f/u appointment, you can further discuss the need to restart this medication If you notice your blood pressures are consistently 150 (top number) or higher, please contact your PCP BIJAL A script for Zofran sublingual (under the tongue) has been prescribed for as needed for nausea WAIT TO START CHEMOTHERAPY MEDICATION UNTIL FOLLOW-UP APPOINTMENT WITH DR. STEWART Resume all other regular home medications as prescribed FOLLOW-UPS: Please follow-up with your PCP within 5-7 days Please follow-up with Dr. Stewart as scheduled Please follow-up/keep all of your subspecialty appointments Current Hospital Diet Patient's current hospital diet: AHA Diet (Heart Healthy) Discharge Diet Recommended Diet: AHA Diet (Heart Healthy) Pending Studies Studies pending at discharge: yes List of pending studies: Urine culture Laboratory Results Hemoglobin A1c Test 02/03/17 09:45 Range/Units Estimated Average Glucose 126 mg/dl Hemoglobin A1c 6.0 H 4.5-5.6 % Lipid Panel Test 04/18/17 03:35 Range/Units Triglycerides Level 144 0-150 mg/dl Cholesterol Level 65 0-200 mg/dl HDL Cholesterol 12 mg/dl Cholesterol/HDL Ratio 5.4 LDL Cholesterol, Calculated 24 mg/dl Medical Emergencies . Who to Call and When: Medical Emergencies: If at any time you feel your situation is an emergency, please call 911 immediately. . Non-Emergent Contact Non-Emergency issues call your: Primary Care Provider, Oncologist Call Non-Emergent contact if: you have a fever, your pain is not controlled, your pain is worsening, your pain is unusual for you, your pain is concerning you, you have any medication questions . . "Provider Documentation" section prepared by Vickie Watkins. . VTE Core Measure Inpt VTE Proph given/why not?: Mirza Chavira, SCD's
[2017-04-19 13:38] VITALS: BP 102/68; PULSE 74; TEMP 36.8; O2SAT 99
--- NOTE | 2017-04-19 13:41 | Discharge Summary ---
Discharge Summary Date of Service Apr 19, 2017. Discharge Summary Admission Date: Apr 18, 2017 at 15:21 Discharge Date: Apr 19, 2017 Discharge Disposition: Home Principal Diagnosis: syncope, fall, dehydration Problems/Secondary Diagnoses: Syncopal event, likely secondary to dehydration Hypotension, ?secondary to dehydration vs adrenal insufficiency on chronic Prednisone Mild hyponatremia Hypomagnesium Abnormal UA Gastric b-cell lymphoma w/ metastatic adenocarcinoma of lung Oral mucositis secondary to chemotherapy Nausea Fungal PNA ANTONIETTA infection CAD s/p CABG x4 vessel NSTEMI HLD HTN CKD stage III Immunodeficiency disorder Sjgren syndrome Osteoporosis Immunizations: Have You Had Influenza Vaccine: Yes Influenza Vaccine Date: Jan 10, 2013 History of Tetanus Vaccine?: Yes Tetanus Immunization Date: Aug 17, 2008 History of Pneumococcal: Yes Pneumococcal Date: Feb 16, 2009 History of Hepatitis B Vaccine: No Procedures: ECHOCARDIOGRAM: Interpretation Summary * Conclusions -- * 1. Normal LV size, mild concentric LVH. * 2. Mild LV dysfunction. LVEF 45-50%. LAD distribution wall motion abnormality (see below for details). * 3. Normal RV size, mild RV dysfunction. * 4. Grade II diastolic dysfunction. * 5. Mild mitral regurgitation. Mild PI. * 6. Mild TR. Normal estimated PA and RA pressures. * 7. Compared with prior study on 04/02/2017: LAD distribution wall motion abnormality is new. Procedure Details * A complete two-dimensional transthoracic echocardiogram was performed ( 2D, M-mode, Doppler and color flow Doppler). Left Ventricle * The left ventricle is normal in size. * There is mild concentric left ventricular hypertrophy. * The basal septum is thickened and angulated consistent with sigmoid septum. * Ejection Fraction = 45-50%. * Akinetic mid anteroseptum, septum and apical septum. Mild mid-apical anterior hypokinesis. Right Ventricle * The right ventricle is grossly normal size. * The right ventricular systolic function is mildly reduced. Atria * The left atrium is borderline dilated. * Right atrial size is normal. * No ASD detected; PFO is not assessed. Mitral Valve * The mitral valve is grossly normal. * There is no mitral valve stenosis. * There is mild mitral regurgitation. Tricuspid Valve * The tricuspid valve is not well visualized, but is grossly normal. * There is no tricuspid stenosis. * There is mild tricuspid regurgitation. Aortic Valve * The aortic valve is trileaflet. * Aortic valve sclerosis mild, without significant aortic valvular stenosis. * No hemodynamically significant valvular aortic stenosis. * There is no significant aortic regurgitation. Pulmonic Valve * The pulmonary valve is inadequately visualized, but the Doppler data is adequate for interpretation. * There is no pulmonic valvular stenosis. * Mild pulmonic valvular regurgitation. Great Vessels * The aortic root and proximal ascending aorta are normal sized. Pericardium/Pleural * There is no pericardial effusion. Great Vessels * There is no evidence of pulmonary hypertension. The PA systolic pressure is less than 36 mmHg. Left Ventricular Diastolic Function * Diastolic dysfunction, Grade II (pseudonormalization pattern). Consultations: Cardiology Medication Reconciliation New Medications: Cephalexin (Keflex) 500 Mg Cap 1 CAP PO BID for 7 Days, #14 CAP Ondansetron (Ondansetron HCl) 4 Mg Tab 4 MG SL Q6H for 30 Days, #120 TAB Continued Medications: Albuterol Sulfate (Proair Respiclick) 108 Mcg/Act Aer 2 PUFFS INH BID Aspirin (Aspirin 81) 81 Mg Tab 1 TAB PO QAM OK WITH SURGEON TO CONTINUE PER PT Benzonatate (Tessalon Perles) 100 Mg Cap 100 MG PO TID PRN for Cough, CAP Calcium Carbonate-Cholecalcife (Caltrate 600+D) 1 Tab Tab 1 TAB PO BID Cevimeline Hcl (Cevimeline Hcl) 30 Mg Cap 30 MG PO TID Epinephrine (Epipen) 0.3 Mg/0.3 Ml Inj 0.3 MG IM UD PRN for ALLERGIC REACTION PT ON HYZENTRA INFUSION WEEKLY AND THE EPI WAS PRESCRIBED IN CASE OF REACTION TO THIS MEDICATION Hydrocodone/Homatropine (Hydromet 5-1.5 mg/5Ml) 5 Ml/Cup Syrp 5 ML PO Q4H PRN for Cough, #180 ML Isosorbide Mononitrate (Imdur Ext Rel) 60 Mg Tab 60 MG PO QAM, TAB Magnesium (Magnesium 250 mg) 1 Tab Tab 1 TAB PO QAM Metoprolol Tartrate (Lopressor) (Lopressor) 50 Mg Tab 75 MG PO BID, TAB Multivitamins/Minerals (Mvi With Minerals) Tab 1 TAB PO QPM, TAB Nitroglycerin (Nitrostat) 0.4 Mg Sub 0.4 MG UT UD PRN for Chest Pain Potassium Ext Rel (Klor-Con) 20 Meq Tabcr 10 MEQ PO TID, TAB Prednisone (Prednisone) 1 Mg Tab 3 MG PO QAM, TAB Probiotic Product (Probiotic) 1 Cap Cap 1 TAB PO QPM Prochlorperazine Maleate (Compazine) 10 Mg Tab 10 MG PO PRN for Nausea or Vomiting, TAB Raloxifene HCl (Raloxifene Hydrochloride) 60 Mg Tab 60 MG PO QPM, #90 Ranolazine (Ranexa) 500 Mg Tabcr 1 TAB PO QAM Resveratrol (Pa Resveratrol) 250 Mg Cap 500 MG PO HS Simvastatin (Zocor) 40 Mg Tab 40 MG PO HS, TAB Tramadol (Ultram) 50 Mg Tab 50 MG PO Q4H PRN for Pain, #15 TAB [Hyzentra] () 1 DOSE INJ FRIDAYS Discontinued Medications: Triamterene/Hctz (Triamterene/Hctz 37.5-25MG Tab) 1 Tab Tab 1 TAB PO QDL, TAB Referrals At Discharge Follow up Referrals: Family Practice Referral - Within 1-2 Weeks with vEin Tinajero M.D. Discharge Exam Review of Systems: Constitutional: No fever, No chills, No sweats, No weakness, No fatigue Eyes: No worsening of vision ENT: No hearing loss Respiratory: No cough, No shortness of breath, No hemoptysis Cardiovascular: No chest pain, No edema, No palpitations Abdomen: No pain, No nausea, No vomiting, No diarrhea, No constipation Musculoskeletal: No joint pain, No muscle pain, No swelling, No calf pain Genitourinary - Female: No dysuria, No hematuria Neurologic: No weakness, No numbness/tingling Psychiatric: No depression symptoms, No anxiety Endocrine: No fatigue Hematologic / Lymphatic: No abnormal bleeding/bruising Integumentary: No rash, No itch, No new/changing skin lesions Physical Exam: General Appearance: no apparent distress, + thin Eyes: normal inspection, PERRL ENT: hearing grossly normal Neck: supple Respiratory/Chest: lungs clear, no respiratory distress, no accessory muscle use, + decreased breath sounds (throughout ) Cardiovascular: regular rate, rhythm, + systolic murmur Abdomen / GI: normal bowel sounds, non tender, soft Extremities: no calf tenderness, no pedal edema Neurologic/Psychiatric: alert, normal mood/affect, oriented x 3 Skin: normal color, warm/dry, no rash Hospital Course Admission H&P: This is a 72 y/o F w/ PMHx of CAD s/p CABG x4 vessel, HLD, HTN, b-cell lymphoma , chronic cough, immunodeficiency disorder, Sjgren syndrome, and osteoporosis who presents after being found by her in the bathroom floor. He reports that she was on the toilet and fell forward. He calls it a syncopal episode and that she was unaware of the episode. She did not hit her head. She has been weak and dehydrated recently. She was also just discharged after being treated for diarrhea / weakness 2/2 chemo. The diarrhea has resolved. She supposedly was seen by onc in the last 2 days and received IV fluids. She admits to not being able to eat or drink much. She was recently started on chemotherapy and hasn't been tolerating this well. She will have her second round in April. She denies any chest pain, shortness of breath. Physical Exam Vital Signs Date Time Temp Pulse Resp B/P (MAP) Pulse Ox O2 Delivery O2 Flow Rate FiO2 04/17/17 04:00 94 Nasal Cannula 3.0 04/17/17 03:45 94 18 104/74 98 04/17/17 03:30 37.2 89 18 102/69 (80) 91 Nasal Cannula 3.0 04/17/17 03:00 93 18 104/74 95 Room Air 04/17/17 01:21 102 04/17/17 01:20 88 Nasal Cannula 2.0 04/17/17 01:09 37.0 100 24 126/84 93 Room Air General Appearance: no apparent distress Eyes: normal inspection, PERRL, EOMI ENT: hearing grossly normal Neck: supple, no adenopathy, no JVD Respiratory/Chest: lungs clear, normal breath sounds, no accessory muscle use Cardiovascular: regular rate, rhythm, no edema, no murmur Abdomen/GI: normal bowel sounds, non tender, soft Back: no CVA tenderness Extremities/Musculoskelatal: no calf tenderness, no pedal edema, + pertinent finding (stasis dermatitis changes) Neurologic/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 Patient was most recently admitted to [facility] on 04/10-04/12 due to colitis w/ diarrhea and dehydration secondary to chemotherapy. Syncopal event, likely secondary to dehydration: - Admitted to tele for cardiac monitoring - Trending cardiac enzymes- trop peaked 2.49- likely secondary to demand ischemia - EKG QAM and PRN for chest pain - Treated w/ IV NSS @ 80 ml/hr - ECHO- EF of 45-50%, grade II diastolic dysfunction, mild MR, mild TR - Cardiology consulted, appreciate recommendations Hypotension, ?secondary to dehydration vs adrenal insufficiency on chronic Prednisone: - Treated IVF - HCTZ held- will continue to hold at discharge due to low/normal BP- instructed patient to keep daily log of BPs and f/u w/ PCP - Hypotensive medications w/ hold parameters - IV Hydrocortisone 12.5 mg q8 hrs x1 day, then resumed chronic Prednisone Mild hyponatremia at 133, likely secondary to dehydration- RESOLVED: IVF as above, follow PRP Hypomagnesium at 1.5- RESOLVED: Replaced w/ IV Mag 1 gm x2 + Mag-Ox 400 mg daily - follow mag level and replace PRN Abnormal UA: UCx growing gram negative bacilli- discharge on Keflex 500 mg BID x7 days 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 Stewart: - Currently not receiving chemotherapy or radiation - Instructed patient to f/u with Dr. Stewart as scheduled on 04/29 prior to restarting chemotherapy medication Oral mucositis secondary to chemotherapy: Magic mouthwash Nausea: Zofran 4 mg SL q6 hrs PRN for nausea Fungal PNA, ANTONIETTA infection- following w/ Dr. Jon CAD s/p CABG x4 vessel, NSTEMI, HLD, HTN: Continue Metoprolol 75 mg BID and Imdur 60 mg daily w/ hold parameters, Zocor 40 mg CKD stage III- baseline Cr. 1.2- STABLE Immunodeficiency disorder: Continue Hyzentra injections weekly on Fridays Sjgren syndrome: Prednisone 3 mg daily, Evoxac 30 mg TID Osteoporosis: Raloxifene 60 mg daily GI prophylaxis: Protonix daily DVT prophylaxis: Heparin SQ BID Code Status: LEVEL I, FULL Dispo: Discharge to home Total Time Spent: Greater than 30 minutes This includes examination of the patient, discharge planning, medication reconciliation, and communication with other providers. Discharge Instructions Please refer to the electronic Patient Visit Report (Discharge Instructions) for additional information. Follow-Up Please follow-up with your PCP within 5-7 days Please follow-up with Dr. Stewart as scheduled on 04/29 Please follow-up/keep all of your subspecialty appointments Additional Copies To Evin Tinajero M.D.; Kade Stewart, Luis.Mac Reviewed: Pt Seen/Exam by Me History Pt is feeling much improved and is anxious for d/c home. She has not noted any dark or black stools and no chandan blood in her stool or other bruising/ bleeding. Denies chest pain or SOB. Tolerating PO without issue. Agree with HPI/ROS as noted by PAC. General Appearance: no apparent distress, thin Respiratory: normal breath sounds, no respiratory distress Cardiovascular: normal peripheral pulses, regular rate, rhythm Gastrointestinal: non tender, soft Extremities: non-tender, no pedal edema Neurologic/Psychiatric: alert, normal mood/affect, oriented x 3 Skin Characteristics: normal color, warm/dry Assessment/Plan Agree with plan as outlined above Elevated trop, ECHO noted and cardiology planning for conservative management UA noted with cx + for bacilli, continue PO abx on d/c Pt notes that she was to start a new chemo medication on 04/28/17 with f/u with Dr. Stewart on 04/29/17. Advised her to hold on new medication until she has seen Dr. Stewart on 04/29/17 as her new health status may change her ability to tolerate this medication Pt seen by PT/OT and planning for home
--- NOTE | 2017-04-19 14:12 | NUR ---
Patient discharged home. Her is here to pick her up. A-port discontinued per policy- site C/D/I. All discharge instructions reviewed with patient and her and they denied having any further questions. Cardiac monitoring removed. Patient escorted via wheelchair to main lobby by CODY. waiting at front with car.
[2017-07-03] MEDS ORDERED: PANT1TAB4 PO (08:47)
[2017-07-16] MEDS ORDERED: PRD/1 PO (07:07)
[2017-07-16] MEDS ORDERED: MAGN250T3 PO (08:09)
[2017-07-16] MEDS ORDERED: SIMV40TA4 PO (08:09)
[2017-07-16] MEDS ORDERED: NITR0.4S UT (08:12)
[2017-07-16] MEDS ORDERED: BENZ100C18 PO (08:38)
[2017-07-16] MEDS ORDERED: MULT-513 PO (08:38)
[2017-07-16] MEDS ORDERED: CALC-354 PO (08:38)
[2017-07-16] MEDS ORDERED: PROC10TA PO (08:38)
[2017-07-16] MEDS ORDERED: RNXER500 PO (09:17)
== END 2017-04-19 14:13 | disposition home or self-care (01) | DRG 640 ==
LOC: C.EDB 01:05 → C.2T 03:25 → EDBEDREQ 03:31 → ENRESERV 03:34 → OBSVTOIN 04-18 15:21
PROVIDERS: ADMIT Student in an Organized Health Care Education/Training Program; ATTEND Family Medicine
DX: E86.0 Dehydration (principal); I21.4 Non-ST elevation (NSTEMI) myocardial infarction; I13.0 Hypertensive heart and chronic kidney disease with heart failure and stage 1 through stage 4 chronic kidney disease, or unspecified chronic kidney disease; I50.32 Chronic diastolic (congestive) heart failure; C34.90 Malignant neoplasm of unspecified part of unspecified bronchus or lung; C83.33 Diffuse large B-cell lymphoma, intra-abdominal lymph nodes; I24.8 Other forms of acute ischemic heart disease; R55 Syncope and collapse; E87.1 Hypo-osmolality and hyponatremia; T45.1X5A Adverse effect of antineoplastic and immunosuppressive drugs, initial encounter; R19.7 Diarrhea, unspecified; I25.10 Atherosclerotic heart disease of native coronary artery without angina pectoris; E78.5 Hyperlipidemia, unspecified; M35.00 Sjogren syndrome, unspecified; M81.0 Age-related osteoporosis without current pathological fracture; E83.42 Hypomagnesemia; K12.31 Oral mucositis (ulcerative) due to antineoplastic therapy; N18.3 Chronic kidney disease, stage 3 (moderate); Z79.52 Long term (current) use of systemic steroids; Z79.82 Long term (current) use of aspirin; Z79.899 Other long term (current) drug therapy; Z95.1 Presence of aortocoronary bypass graft; W18.11XA Fall from or off toilet without subsequent striking against object, initial encounter; Y92.002 Bathroom of unspecified non-institutional (private) residence as the place of occurrence of the external cause

== ENCOUNTER → 2017-05-27 | Outpatient (CLI) | payer BC ==
[~2017-05-27] MED LIST changes: +ALBU18002 INH; +ASPI-435 PO; +BENZ100C18 PO; +CALC-354 PO; +CEVI1CAP PO; +EPP3/2 IM; +ISOS60TA2 PO; +MAGN250T3 PO; +METO50TA16 PO; +MISCCAP80 PO; +MULT-513 PO; -MXZC25 PO; +NITR0.4S UT; +OPTIRAY 320 IV PRN; -POTA-639 PO; +POTA20TA16 PO; +PRD/1 PO; +PROC1TAB5 PO; +RALO1TAB2 PO; +RNXER500 PO; +SIMV40TA4 PO; +ZFR4 SL
--- NOTE | 2017-05-27 13:56 | DIAGNOSTIC IMAGING REPORT ---
ABD/PELVIS IV AND ORAL CONT CLINICAL HISTORY: 72 years-old Female presenting with NON-SMALL CELL LUNG CA. TECHNIQUE: Multidetector CT of the abdomen and pelvis was performed after the administration of oral and intravenous contrast. IV contrast: 116 mL of Optiray 320. A dose lowering technique was used consistent with the principles of ALARA (as low as reasonably achievable). COMPARISON: 02/04/2017. CT DOSE (mGy.cm): The estimated cumulative dose is 441.28 mGy.cm. FINDINGS: Cement Sack Breaker topogram: Median sternotomy wires, left subclavian Mediport, and cholecystectomy clips noted. Lung bases: Extensive peripheral/subpleural nodular opacities increased from prior exam involving both lungs and all visualized lobes. Bronchiectatic change also evident with multifocal subsegmental bronchial debris. Biatrial enlargement. Coronary artery calcification. No pericardial or pleural effusion. Liver: Normal morphology. Well-defined hypodensity in the right hepatic lobe is multilobular and indeterminate but likely hepatic cyst. Perfusional variation or fatty infiltration along the fissure for the ligamentum teres. Hypoenhancing peripheral region in segment 6 unchanged from prior, possibly hepatic cyst or retraction injury. Patent hepatic vasculature. Biliary: Mild biliary ductal prominence likely a reservoir effect in the post cholecystectomy state. Gallbladder surgically absent. Pancreas: Pancreas divisum. Pancreas parenchyma normal. Spleen: Normal. Adrenal glands: Normal. Kidneys and ureters: Tiny hypodensities in the right kidney likely simple cysts but too small to characterize. No nephrolithiasis. No hydronephrosis. Mild urothelial thickening and enhancement greater on the right. Bladder: Mild circumferential bladder wall thickening. Pelvic organs: Uterus surgically absent. No adnexal masses. Bowel: Normal appendix partially contained within a right femoral hernia. No bowel obstruction. Peritoneal cavity: No free fluid or intraperitoneal gas. Lymph nodes: No enlarged lymph nodes in the abdomen or pelvis. Vasculature: Extensive calcified and noncalcified atherosclerotic plaque in the normal caliber abdominal aorta. IVC patent. Abdominal wall: Small fat-containing umbilical hernia. Small focus of ovoid soft tissue with central fat in the right anterior abdominal wall may represent site of injection or fat necrosis. Musculoskeletal: Degenerative changes of the spine focally at L1-2. No destructive osseous lesion.. IMPRESSION: 1. No lymphadenopathy or evidence of metastatic disease in abdomen or pelvis. 2. Urothelial thickening and enhancement greater in the right ureter in comparison to the left. This could suggest infection or inflammation of the upper tracts. Correlate with urinalysis. Mild circumferential bladder wall thickening also suggests cystitis. 3. Extensive nodular opacities in the lung bases increased from prior with bronchiectatic change. Please see separately dictated CT of the chest performed on the same day. Electronically signed by: Vipul Calero M.D. 05/27/2017 1:55 PM Dictated Date/Time: 05/27/2017 1:45 PM
--- NOTE | 2017-05-27 14:46 | DIAGNOSTIC IMAGING REPORT ---
CT OF THE CHEST WITH IV CONTRAST CLINICAL HISTORY: Non-small cell lung cancer. COMPARISON STUDY: Chest CT February 04, 2017 and PET/CT February 18, 2017. TECHNIQUE: Following IV administration of 116 mL of Optiray-320, helical axial images of the chest were obtained. Sagittal and coronal reconstructions were viewed as well as maximal intensity projections on an independent 3-D workstation. A dose lowering technique was utilized adhering to the principles of ALARA. FINDINGS: No enlarged axillary, mediastinal or hilar lymph nodes are present. The heart is mildly enlarged. There is no pericardial effusion. Median sternotomy wires are noted. The right suprahilar upper lobe mass has decreased in size since CT of February 04, 2017. This lesion now measures 2.3 x 2.3 cm. It previously measured 3.1 x 2.2 cm. Multifocal nodular opacities within the right middle lobe, lingula and both lower lobes are noted. These demonstrate a waxing and waning appearance when correlated with multiple prior imaging studies. Associated bronchiectasis is noted. There is no lobar consolidation. No pneumothorax or pleural effusion is noted. There are no suspicious osseous lesions. The abdomen and pelvis will be reported separate. Several right hepatic lobe lesions are unchanged and shown to represent hemangiomas on prior imaging studies. IMPRESSION: 1. Moderate interval decrease in size of the known right upper lobe carcinoma since exam of February 04, 2017 consistent with a partial treatment response. Lesion now measures 2.3 x 2.3 cm (previously 3.1 x 2.2 cm.) 2. No thoracic lymphadenopathy. 3. Multifocal bilateral lower lobe, right middle lobe and lingular nodules, many of which in a tree-in-bud distribution, with bronchiectasis with a waxing and waning appearance when correlating with multiple prior imaging studies. The findings favor an infectious/inflammatory etiology such as an atypical mycobacterial infection. A neoplastic etiology is considered much less likely. Electronically signed by: Remington Melvin M.D. 05/27/2017 2:44 PM Dictated Date/Time: 05/27/2017 1:55 PM
== END | disposition home or self-care (01) ==
LOC: C.CTS 12:12
PROVIDERS: ATTEND Internal Medicine Hematology & Oncology
DX: C34.91 Malignant neoplasm of unspecified part of right bronchus or lung (principal)

== ENCOUNTER → 2017-06-18 | Outpatient (CLI) | payer BC ==
[~2017-06-18] MED LIST changes: -OPTIRAY 320 IV PRN; +PRD20 PO; +PRT40 PO; +[UNRECOGNIZED DRUG - CODE] PO
== END | disposition home or self-care (01) ==
LOC: C.LABSPEC 18:13
PROVIDERS: ATTEND Internal Medicine
DX: M85.471 Solitary bone cyst, right ankle and foot (principal)

== ENCOUNTER 2017-07-02 06:57 | Observation (INO) | payer BC ==
[2017-07-02] VITALS (7 sets, daily range): BP systolic 114–150; BP diastolic 68–87; PULSE 86–128; TEMP 36.8–36.9; O2SAT 90–100; Ht 149.9 cm; Wt 39.9 kg
[~2017-07-02] VITALS: Ht 149.9 cm; Wt 39.9 kg
[~2017-07-02 06:57] MED LIST changes: -PRD20 PO; -PRT40 PO; -[UNRECOGNIZED DRUG - CODE] PO
[2017-07-02] MEDS ORDERED: MAGNESIUM SULFATE 1GM / D5W 1 GM BAG IV STA (07:10)
--- NOTE | 2017-07-02 07:12 | EMERGENCY ROOM VISIT NOTE ---
History Report prepared by Cornelius: See Dobbins Under the Supervision of: Dr. Srinivas Tyson M.D. First contact with patient: 07:03 Chief Complaint: CHEST PAIN Stated Complaint: CHEST PAIN,SOB History of Present Illness The patient is a 72 year old female with lung cancer who presents to the Emergency Room with complaints of worsening shortness of breath that started 2 days ago. She states that she was diagnosed again with lung cancer in February, and had her Tarceva pill increased last week because she had been doing well with it. The patient notes that she has a port from the cancer she had 3 years ago. She says that her inhaler has not been helping for her shortness of breath over the past 2 days. She adds that she has jemima having some chest pain as well. The patient states that she takes a baby Aspirin daily but no other blood thinners. She notes that she does not wear oxygen at home. Source of History: patient Onset: 2 days ago Position: other (global) Symptom Intensity: has current lung cancer Quality: other (shortness of breath) Timing: worsening Associated Symptoms: + chest pain Note: No other associated symptoms noted. Review of Systems See HPI for pertinent positives & negatives. A total of 10 systems reviewed and were otherwise negative. 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 PAIN.,NAUSEA/VOMITING Surgical Problems: (1) H/O: hysterectomy Family History Diabetes mellitus Hypertension Social History Smoking Status: Never Smoker Alcohol Use: none Marital Status: Housing Status: lives with family Occupation Status: unemployed Current/Historical Medications Scheduled Albuterol Sulfate (Proair Respiclick), 2 PUFFS INH BID Aspirin (Aspirin 81), 1 TAB PO QAM Calcium Carbonate-Cholecalcife (Caltrate 600+D), 1 TAB PO BID Cevimeline Hcl (Cevimeline Hcl), 30 MG PO TID Erlotinib (Tarceva), 100 MG PO DIRECTED Isosorbide Mononitrate (Imdur Ext Rel), 60 MG PO QAM Magnesium (Magnesium 250 mg), 1 TAB PO QAM Metoprolol Tartrate (Lopressor) (Lopressor), 75 MG PO BID Multivitamins/Minerals (Mvi With Minerals), 1 TAB PO QPM Ondansetron (Ondansetron HCl), 4 MG SL Q6H Potassium Ext Rel (Klor-Con), 10 MEQ PO TID Prednisone (Prednisone), 3 MG PO QAM Probiotic Product (Probiotic), 1 TAB PO QPM Raloxifene HCl (Raloxifene Hydrochloride), 60 MG PO QPM Ranolazine (Ranexa), 1 TAB PO QAM Resveratrol (Pa Resveratrol), 500 MG PO HS Simvastatin (Zocor), 40 MG PO HS [Hyzentra], 1 DOSE INJ FRIDAYS Scheduled PRN Benzonatate (Tessalon Perles), 100 MG PO TID PRN for Cough Epinephrine (Epipen), 0.3 MG IM UD PRN for ALLERGIC REACTION Hydrocodone/Homatropine (Hydromet 5-1.5 mg/5Ml), 5 ML PO Q4H PRN for Cough Nitroglycerin (Nitrostat), 0.4 MG UT UD PRN for Chest Pain Prochlorperazine Maleate (Compazine), 10 MG PO for Nausea or Vomiting Tramadol (Ultram), 50 MG PO Q4H PRN for Pain Allergies Coded Allergies: No Known Allergies (Unverified , 07/02/17) Physical Exam Vital Signs Date Time Temp Pulse Resp B/P (MAP) Pulse Ox O2 Delivery O2 Flow Rate FiO2 07/02/17 10:10 133 20 129/74 100 07/02/17 09:35 133 20 137/90 100 Nasal Cannula 2.0 07/02/17 09:06 7.0 07/02/17 08:38 96 18 138/75 100 Nebulizer 7.0 07/02/17 07:47 91 20 131/87 100 Nebulizer 7.0 07/02/17 07:38 94 18 100 Nasal Cannula 2.0 07/02/17 07:26 96 Nasal Cannula 2.0 07/02/17 07:26 96 Nasal Cannula 2.0 07/02/17 07:12 90 07/02/17 06:59 36.7 105 18 134/77 91 Room Air Physical Exam GENERAL: Awake, alert, anxious-appearing, in no acute distress HENT: Normocephalic, atraumatic. Oropharynx unremarkable. EYES: Normal conjunctiva. Sclera non-icteric. NECK: Supple. No nuchal rigidity. FROM. No JVD. RESPIRATORY: Distant breath sounds. CARDIAC: Regular rate, normal rhythm. Extremities warm and well perfused. Pulses equal. ABDOMEN: Soft, non-distended. No tenderness to palpation. No rebound or guarding. No masses. RECTAL: Deferred. MUSCULOSKELETAL: Chest examination reveals no tenderness. The back is symmetrical on inspection without obvious abnormality. There is no CVA tenderness to palpation. No joint edema. LOWER EXTREMITIES: Calves are equal size bilaterally and non-tender. No edema. No discoloration. NEURO: Normal sensorium. No sensory or motor deficits noted. SKIN: No rash or jaundice noted. Medical Decision & Procedures ER Provider Diagnostic Interpretation: Radiology results as stated below per my review and radiologist interpretation: (CHEST FOR PE) ANGIO WITH CT DOSE: 174.70 mGy.cm HISTORY: Chest pain dyspnea TECHNIQUE: Multiaxial CT images of the chest were performed following the intravenous administration of contrast to evaluate the pulmonary arteries. Maximal intensity projection images were also obtained. A dose lowering technique was utilized adhering to the principles of ALARA. COMPARISON STUDY: 05/27/2017 FINDINGS: Mild atherosclerotic change thoracic aorta. Suggestion of a small focal dissection of the lower aspect of the thoracic aorta, although this most likely represents flow artifact. No significant evidence for aneurysm or dissection. The right suprahilar masslike process is similar. Parenchymal nodularity in the mid to lower lung regions is considered generally stable. Dependent basilar atelectasis is unaltered. Bronchiectasis of the anterior right middle lobe as well as lingula is stable. Pulmonary vasculature enhances appropriately. There are no focal filling defects. IMPRESSION: 1. Study is negative for pulmonary embolus .2. Parenchymal nodularity and right perihilar masslike process unchanged. 3. Basilar atelectatic/bronchiectatic and nodular-type change unaltered from the prior study. The above report was generated using voice recognition software. It may contain grammatical, syntax or spelling errors. Electronically signed by: David Nunez M.D. 07/02/2017 8:27 AM Dictated Date/Time: 07/02/2017 8:15 AM CHEST ONE VIEW PORTABLE CLINICAL HISTORY: Shortness of breath COMPARISON STUDY: 03/13/2017 FINDINGS: The cardiac and mediastinal contours remain stable. There is a left-sided A-Port catheter present. There is been significant interval decrease in the size of the right upper lobe pulmonary mass. There is mild basilar interstitial thickening. This is likely chronic. There is no lobar consolidation. There is no failure. There are no pleural effusions.[ IMPRESSION: 1. Interval decrease in the size the right upper lobe pulmonary mass 2. Mild chronic basilar interstitial thickening 3. No evidence of failure. No evidence of acute parenchymal consolidation Electronically signed by: Jose Jackson M.D. 07/02/2017 7:41 AM Dictated Date/Time: 07/02/2017 7:39 AM Laboratory Results 07/02/17 07:30 Red Blood Count 4.17, Mean Corpuscular Volume 90.6, Mean Corpuscular Hemoglobin 30.7, Mean Corpuscular Hemoglobin Concent 33.9, Mean Platelet Volume 9.7, Neutrophils (%) (Auto) 54.5, Lymphocytes (%) (Auto) 29.2, Monocytes (%) (Auto) 15.5, Eosinophils (%) (Auto) 0.6, Basophils (%) (Auto) 0.2, Neutrophils # (Auto ) 2.67, Lymphocytes # (Auto) 1.43, Monocytes # (Auto) 0.76, Eosinophils # (Auto ) 0.03, Basophils # (Auto) 0.01 07/02/17 07:30 Test 07/02/17 07:10 07/02/17 07:25 07/02/17 07:30 07/02/17 09:25 Influenza Type A Antigen Neg for Influ A (NEG) Influenza Type B Antigen Neg for Influ B (NEG) Bedside Hemoglobin 13.3 g/dl (12.0-16.0) Bedside Hematocrit 39 % (37-47) Bedside Sodium 135 mEq/L (135-144) Bedside Potassium 3.5 mEq/L (3.3-5.0) Bedside Chloride 96 mEq/L (101-112) Bedside Total CO2 27 mEq/l (24-31) Bedside Blood Urea Nitrogen 32 mg/dl (7-18) Bedside Creatinine 1.2 mg/dl (0.6-1.3) Bedside Glucose (other) 128 mg/dl (70-99) Bedside Ionized Calcium (Luigi) 1.12 mmol/l (1.12-1.32) White Blood Count 4.90 K/uL (4.8-10.8) Red Blood Count 4.17 M/uL (4.2-5.4) Hemoglobin 12.8 g/dL (12.0-16.0) Hematocrit 37.8 % (37-47) Mean Corpuscular Volume 90.6 fL (80-100) Mean Corpuscular Hemoglobin 30.7 pg (25-34) Mean Corpuscular Hemoglobin Concent 33.9 g/dl (32-36) Platelet Count 232 K/uL (130-400) Mean Platelet Volume 9.7 fL (7.4-10.4) Neutrophils (%) (Auto) 54.5 % Lymphocytes (%) (Auto) 29.2 % Monocytes (%) (Auto) 15.5 % Eosinophils (%) (Auto) 0.6 % Basophils (%) (Auto) 0.2 % Neutrophils # (Auto) 2.67 K/uL (1.4-6.5) Lymphocytes # (Auto) 1.43 K/uL (1.2-3.4) Monocytes # (Auto) 0.76 K/uL (0.11-0.59) Eosinophils # (Auto) 0.03 K/uL (0-0.5) Basophils # (Auto) 0.01 K/uL (0-0.2) RDW Standard Deviation 50.2 fL (36.4-46.3) RDW Coefficient of Variation 15.3 % (11.5-14.5) Immature Granulocyte % (Auto) 0.0 % Immature Granulocyte # (Auto) 0.00 K/uL (0.00-0.02) Prothrombin Time 9.9 SECONDS (9.0-12.0) Prothromb Time International Ratio 0.9 (0.9-1.1) Activated Partial Thromboplast Time 32.9 SECONDS (21.0-31.0) Partial Thromboplastin Ratio 1.3 Anion Gap 9.0 mmol/L (3-11) Est Creatinine Clear Calc Drug Dose 24.2 ml/min Estimated GFR () 45.4 Estimated GFR (Non- 39.2 BUN/Creatinine Ratio 23.6 (10-20) Calcium Level 8.6 mg/dl (8.5-10.1) Total Bilirubin 0.8 mg/dl (0.2-1) Aspartate Amino Transf (AST/SGOT) 36 U/L (15-37) Alanine Aminotransferase (ALT/SGPT) 23 U/L (12-78) Alkaline Phosphatase 60 U/L (45-117) Total Creatine Kinase 23 U/L (26-192) Creatine Kinase MB 0.6 ng/ml (0.5-3.6) Creatine Kinase MB Ratio 2.6 (0-3.0) Troponin I 0.015 ng/ml (0-0.045) Pro-B-Type Natriuretic Peptide 317 pg/ml (0-900) Total Protein 7.2 gm/dl (6.4-8.2) Albumin 3.1 gm/dl (3.4-5.0) Globulin 4.1 gm/dl (2.5-4.0) Albumin/Globulin Ratio 0.8 (0.9-2) Urine Color YELLOW Urine Appearance CLEAR (CLEAR) Urine pH 6.5 (4.5-7.5) Urine Specific [place] 1.039 (1.000-1.030) Urine Protein NEG (NEG) Urine Glucose (UA) NEG (NEG) Urine Ketones NEG (NEG) Urine Occult Blood NEG (NEG) Urine Nitrite NEG (NEG) Urine Bilirubin NEG (NEG) Urine Urobilinogen NEG (NEG) Urine Leukocyte Esterase NEG (NEG) Labs reviewed by ED physician. Medications Administered Medications (Trade) Dose Ordered Sig/Jimmy Route Start Time Stop Time Status Last Admin Dose Admin Albuterol/ Ipratropium (Duoneb) 12 ml ONE ONCE INH 07/02/17 07:15 07/02/17 07:16 DC 07/02/17 07:34 12 ML Magnesium Sulfate (Magnesium Sulfate) 1 gm NOW STAT IV 07/02/17 07:10 07/02/17 07:15 DC 07/02/17 07:42 1 GM Ondansetron HCl (Zofran Inj) 4 mg NOW STAT IV 07/02/17 07:26 07/02/17 07:28 DC 07/02/17 07:42 4 MG Sodium Chloride 500 ml @ 999 mls/hr Q31M STAT IV 07/02/17 07:26 07/02/17 07:56 DC 07/02/17 07:43 999 MLS/HR Potassium Chloride (Belkis Ciel Elix) 40 meq NOW STAT PO 07/02/17 08:26 07/02/17 08:27 DC 07/02/17 08:43 40 MEQ Methylprednisolone Sodium Succinate (Solu-Medrol IV) 125 mg NOW STAT IV 07/02/17 08:38 07/02/17 08:39 DC 07/02/17 08:43 125 MG Nitroglycerin (Nitroglycerin 2% Oint) 1 inch NOW STAT EXT 07/02/17 08:42 07/02/17 08:43 DC 07/02/17 08:48 1 INCH Morphine Sulfate (MoRPHine SULFATE INJ) 4 mg NOW STAT IV 07/02/17 09:28 07/02/17 09:29 DC 07/02/17 09:32 4 MG Ondansetron HCl (Zofran Inj) 4 mg NOW STAT IV 07/02/17 09:28 07/02/17 09:29 DC 07/02/17 09:32 4 MG ECG Per My Interpretation Indication: SOB/dyspnea Rate (beats per minute): 91 Rhythm: normal sinus Findings: other (incomplete right bundle branch block, no st elevation or depression) Comparison ECG Date: compared to Apr 19 2017, T-wave normalized ED Course 0704: Past medical records reviewed. The patient was evaluated in room A10. A complete history and physical examination was performed. 0710: Magnesium Sulfate 1 gm IV. 0715: DuoNeb 12 ml INH. 0726: NSS 500 ml @ 999 mls/hr IV, Zofran Inj 4 mg IV. 0826: Belkis Ciel Elix 40 meq PO. 0838: Solu-Medrol IV 125 mg IV. 0842: Nitroglycerin 2% Oint 1 inch EXT. 0843: Upon reexamination the patient is resting comfortably. I discussed results and treatment plan with the patient. She verbalizes agreement and understanding. The patient will be evaluated for further management. 0844: I discussed the patient's case with Dr. Willie ARREGUIN business taxes specialist, he has agreed to evaluate the patient for further management and care. Medical Decision Differential diagnosis: Etiologies such as infections, reactive airway disease, pneumonia, pneumothorax , COPD, CHF, cardiac ischemia, pulmonary embolism, musculoskeletal, gastrointestinal, as well as others were entertained. This is a 72-year-old female who presents the emergency department complaining of chest pain that was relieved by nitro. The patient has a history of CABG and has been taking nitro for the past 2 days with improvement in the chest pain. Shoot for this reason she was placed on Nitropaste. I did discuss the case with the hospitalist service who agreed to admit the patient. Patient and family were in agreement with the treatment plan. Medication Reconcilliation Current Medication List: was personally reviewed by me Blood Pressure Screening Patient's blood pressure: Elevated blood pressure Blood pressure disposition: Elevated BP felt to be situational Consults Time Called: 0843 Consulting Physician: Dr. Willie ARREGUIN business taxes specialist Returned Call: [phone] I discussed the patient's case with Dr. Willie ARREGUIN business taxes specialist, he has agreed to evaluate the patient for further management and care. Impression Primary Impression: Chest pain Scribe Attestation The scribe's documentation has been prepared under my direction and personally reviewed by me in its entirety. I confirm that the note above accurately reflects all work, treatment, procedures, and medical decision making performed by me. Departure Information Dispostion Being Evaluated By Hospitalist Referrals Evin Tinajero M.D. (PCP) Patient Instructions My [facility] Problem Qualifiers Primary Impression: Chest pain Chest pain type: unspecified Qualified Codes: R07.9 - Chest pain, unspecified
[2017-07-02] MEDS ORDERED: ALBUT/IPRATROP 3MG/0.5MG NEB 3 ML VIAL INH ONE (07:15)
[2017-07-02] MEDS ORDERED: ONDANSETRON INJ 2 MG/ML 2 ML VIAL IV STA ×2 (07:26→09:28)
[2017-07-02] MEDS ORDERED: SODIUM CHLORIDE 0.9% 500ML 500 ML IV STA (07:26)
[2017-07-02 07:38] LABS: ISTAT CREATININE 1.2 mg/dl (0.6-1.3); ISTAT IONIZED CALCIUM 1.12 mmol/l (1.12-1.32); ISTAT POTASSIUM 3.5 mEq/L (3.3-5.0)
--- NOTE | 2017-07-02 07:43 | DIAGNOSTIC IMAGING REPORT ---
CHEST ONE VIEW PORTABLE CLINICAL HISTORY: Shortness of breath COMPARISON STUDY: 03/13/2017 FINDINGS: The cardiac and mediastinal contours remain stable. There is a left-sided A-Port catheter present. There is been significant interval decrease in the size of the right upper lobe pulmonary mass. There is mild basilar interstitial thickening. This is likely chronic. There is no lobar consolidation. There is no failure. There are no pleural effusions.[ IMPRESSION: 1. Interval decrease in the size the right upper lobe pulmonary mass 2. Mild chronic basilar interstitial thickening 3. No evidence of failure. No evidence of acute parenchymal consolidation Electronically signed by: Jose Jackson M.D. 07/02/2017 7:41 AM Dictated Date/Time: 07/02/2017 7:39 AM
[2017-07-02 07:49] LABS: BASO % 0.2 %; BASO ABS # 0.01 K/uL (0-0.2); EOS % 0.6 %; EOS ABS # 0.03 K/uL (0-0.5); HEMATOCRIT 37.8 % (37-47); HEMOGLOBIN 12.8 g/dL (12.0-16.0); LYMPH % 29.2 %; LYMPH ABS # 1.43 K/uL (1.2-3.4); MEAN CELL VOLUME 90.6 fL (80-100); MEAN CORPUSCULAR HEMOGLOBIN 30.7 pg (25-34); MEAN CORPUSCULAR HGB CONC 33.9 g/dl (32-36); MEAN PLATELET VOLUME 9.7 fL (7.4-10.4); MONO % 15.5 %; MONO ABS # 0.76 K/uL (0.11-0.59); NEUT % 54.5 %; NEUT ABS # 2.67 K/uL (1.4-6.5); PLATELET COUNT 232 K/uL (130-400); RED CELL DISTRIBUTION WIDTH CV 15.3 % (11.5-14.5); RED CELL DISTRIBUTION WIDTH SD 50.2 fL (36.4-46.3)
[2017-07-02 07:55] LABS: INFLUENZA B ANTIGEN Neg for Influ B (NEG)
[2017-07-02 08:01] LABS: ALBUMIN 3.1 gm/dl (3.4-5.0); CALCIUM 8.6 mg/dl (8.5-10.1); CREATININE 1.34 mg/dl (0.60-1.20); POTASSIUM 3.4 mmol/L (3.5-5.1)
[2017-07-02 08:06] LABS: CKMB 0.6 ng/ml (0.5-3.6); TOTAL PROTEIN 7.2 gm/dl (6.4-8.2)
[2017-07-02] MEDS ORDERED: [UNRECOGNIZED DRUG - CODE] PO (08:19)
[2017-07-02] MEDS ORDERED: POTASSIUM CHLORIDE 20 MEQ/15 ML UDC PO STA (08:26)
--- NOTE | 2017-07-02 08:29 | DIAGNOSTIC IMAGING REPORT ---
(CHEST FOR PE) ANGIO WITH CT DOSE: 174.70 mGy.cm HISTORY: Chest pain dyspnea TECHNIQUE: Multiaxial CT images of the chest were performed following the intravenous administration of contrast to evaluate the pulmonary arteries. Maximal intensity projection images were also obtained. A dose lowering technique was utilized adhering to the principles of ALARA. COMPARISON STUDY: 05/27/2017 FINDINGS: Mild atherosclerotic change thoracic aorta. Suggestion of a small focal dissection of the lower aspect of the thoracic aorta, although this most likely represents flow artifact. No significant evidence for aneurysm or dissection. The right suprahilar masslike process is similar. Parenchymal nodularity in the mid to lower lung regions is considered generally stable. Dependent basilar atelectasis is unaltered. Bronchiectasis of the anterior right middle lobe as well as lingula is stable. Pulmonary vasculature enhances appropriately. There are no focal filling defects. IMPRESSION: 1. Study is negative for pulmonary embolus .2. Parenchymal nodularity and right perihilar masslike process unchanged. 3. Basilar atelectatic/bronchiectatic and nodular-type change unaltered from the prior study. The above report was generated using voice recognition software. It may contain grammatical, syntax or spelling errors. Electronically signed by: David Nunez M.D. 07/02/2017 8:27 AM Dictated Date/Time: 07/02/2017 8:15 AM
[2017-07-02] MEDS ORDERED: METHYLPREDNISOLONE 125 MG VIAL IV STA (08:38)
[2017-07-02] MEDS ORDERED: NITROGLYCERIN 2% OINTMENT 30GM TUBE EXT STA (08:42)
[2017-07-02] MEDS ORDERED: MoRPHine SULFATE 4 MG/ML 1 ML CARP\\VIAL IV STA (09:28)
[2017-07-02] MEDS ORDERED: POLYETHYLENE (MIRALAX) 17 GM PACK PO PRN (09:30)
[2017-07-02] MEDS ORDERED: ACETAMINOPHEN 325 MG TAB PO PRN (09:30)
[2017-07-02] MEDS ORDERED: MAGNESIUM HYDROXIDE SUSP 30 ML UDC PO PRN (09:30)
[2017-07-02] MEDS ORDERED: TRAMADOL HCL 50 MG TAB PO PRN (09:30)
[2017-07-02] MEDS ORDERED: BENZONATATE 100MG CAP PO PRN (09:30)
[2017-07-02] MEDS ORDERED: NITROGLYCERIN 0.4 MG SL PER TAB CHARGE SL PRN (09:30)
[2017-07-02] MEDS ORDERED: PROCHLORPERAZINE MALEATE 10 MG TAB PO PRN (09:30)
--- NOTE | 2017-07-02 09:53 | History and Physical ---
History & Physical Date & Time of Service: Jul 02, 2017 at 09:49 Chief Complaint: Chest Pain,Sob Primary Care Physician: Evin Tinajero M.D. History of Present Illness Source: patient, family Ms. 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 Patient states she was in her normal state of health approximately 2 days ago. She does report a chronic cough and chronic angina that is well controlled on her Imdur and Ranexa. She states she was started on Tarceva approximately 1 month ago. She was started at a lower dose of 100 mg daily. Due to responding well to therapy on Thursday she was instructed to increase her dose to 150 mg daily. She states at this point is when she developed shortness of breath and chest pain. Due to her symptoms she took only 100 mg on Thursday. She is not sure if the shortness of breath or chest pain came first. She states the shortness of breath is midsternal with a pressure-like component. This pain does not radiate. She states that exertion does increase this pain. She states this chest pain has been constant 2 days but acutely exacerbates sporadically. Pain is reproducible with palpation of the anterior chest wall. In regards to her shortness of breath, she feels that it suddenly occurred and feels as if she cannot catch her breath. She reports a chronic cough that is unchanged. This is unproductive. She did not feel much change with the DuoNeb in the ED. Is breathing easier with supplemental O2 applied however even on room air is appropriately saturating at approximately 98%. Lung examination is clear in all lung day without wheezing and good aeration. She reports associated chills and nausea. She does not feel that this discomfort is coming from the GI tract. She states her prescribed nausea medications relieve the symptoms. She denies sick contacts and did receive her influenza vaccine. Upon review of outpatient records, patient was diagnosed with ANTONIETTA in February of 2017. She had a mediastinoscopy performed by Dr. Bee. She followed up with infectious disease who plans on monitoring due to treatment would interfere with current medications. In the emergency department, patient is afebrile without leukocytosis however is immunocompromised. CTA is negative for PE and shows stable changes in regards to her cancer. She received DuoNeb treatment with minimal improvement of symptoms. Reports symptom improvement with placement of supplemental O2 even with adequate oxygenation. She has a mildly elevated creatinine of 1.3 with baseline being 1.0-1.1. Family History Diabetes mellitus Hypertension Social History Smoking Status: Never Smoker Smokeless Tobacco Use: No Alcohol Use: none Drug Use: none Marital Status: Housing status: lives with family Occupational Status: unemployed Immunizations History of Influenza Vaccine: Yes Influenza Vaccine Date: Jan 10, 2013 History of Tetanus Vaccine?: Yes Tetanus Immunization Date: Aug 17, 2008 History of Pneumococcal: Yes Pneumococcal Date: Feb 16, 2009 History of Hepatitis B Vaccine: No Allergies Coded Allergies: No Known Allergies (Unverified , 07/02/17) Home Medications Scheduled Albuterol Sulfate (Proair Respiclick), 2 PUFFS INH BID Aspirin (Aspirin 81), 1 TAB PO QAM Calcium Carbonate-Cholecalcife (Caltrate 600+D), 1 TAB PO BID Cevimeline Hcl (Cevimeline Hcl), 30 MG PO TID Erlotinib (Tarceva), 100 MG PO DIRECTED Isosorbide Mononitrate (Imdur Ext Rel), 60 MG PO QAM Magnesium (Magnesium 250 mg), 1 TAB PO QAM Metoprolol Tartrate (Lopressor) (Lopressor), 75 MG PO BID Multivitamins/Minerals (Mvi With Minerals), 1 TAB PO QPM Ondansetron (Ondansetron HCl), 4 MG SL Q6H Potassium Ext Rel (Klor-Con), 10 MEQ PO TID Prednisone (Prednisone), 3 MG PO QAM Probiotic Product (Probiotic), 1 TAB PO QPM Raloxifene HCl (Raloxifene Hydrochloride), 60 MG PO QPM Ranolazine (Ranexa), 1 TAB PO QAM Resveratrol (Pa Resveratrol), 500 MG PO HS Simvastatin (Zocor), 40 MG PO HS [Hyzentra], 1 DOSE INJ FRIDAYS Scheduled PRN Benzonatate (Tessalon Perles), 100 MG PO TID PRN for Cough Epinephrine (Epipen), 0.3 MG IM UD PRN for ALLERGIC REACTION Hydrocodone/Homatropine (Hydromet 5-1.5 mg/5Ml), 5 ML PO Q4H PRN for Cough Nitroglycerin (Nitrostat), 0.4 MG UT UD PRN for Chest Pain Prochlorperazine Maleate (Compazine), 10 MG PO for Nausea or Vomiting Tramadol (Ultram), 50 MG PO Q4H PRN for Pain Review of Systems Constitutional: + chills, No fever ENT: No nasal symptoms, No sore throat Respiratory: + cough (chronic), + dyspnea on exertion, + dyspnea at rest ( intermittent), No sputum, No hemoptysis Cardiovascular: + chest pain (mid-sternal pressure), No orthopnea, No palpitations Abdomen: + nausea, No pain, No vomiting, No diarrhea, No constipation, No GI bleeding Musculoskeletal: No swelling, No calf pain Genitourinary - Female: No dysuria Hematologic / Lymphatic: No abnormal bleeding/bruising Integumentary: No rash Physical Exam Vital Signs Date Time Temp Pulse Resp B/P (MAP) Pulse Ox O2 Delivery O2 Flow Rate FiO2 07/02/17 09:35 133 20 137/90 100 Nasal Cannula 2.0 07/02/17 09:06 7.0 07/02/17 08:38 96 18 138/75 100 Nebulizer 7.0 07/02/17 07:47 91 20 131/87 100 Nebulizer 7.0 07/02/17 07:38 94 18 100 Nasal Cannula 2.0 07/02/17 07:26 96 Nasal Cannula 2.0 07/02/17 07:26 96 Nasal Cannula 2.0 07/02/17 07:12 90 07/02/17 06:59 36.7 105 18 134/77 91 Room Air General Appearance: no apparent distress, + thin Head: normocephalic, atraumatic Eyes: sclerae normal ENT: hearing grossly normal Neck: supple, no JVD, trachea midline Respiratory/Chest: lungs clear, normal breath sounds, no respiratory distress, no accessory muscle use, + pertinent finding (chest well tenderness to palpation of the sternum) Cardiovascular: + tachycardia Abdomen/GI: normal bowel sounds, non tender, soft Extremities/Musculoskelatal: no pedal edema Neurologic/Psych: alert, oriented x 3 Skin: normal color, warm/dry, no rash Diagnostics Laboratory Results Results Past 24 Hours Test 3/8/18 07:10 07/02/17 07:25 07/02/17 07:30 07/02/17 09:25 Range/Units Influenza Type A Antigen Neg for Influ A NEG Influenza Type B Antigen Neg for Influ B NEG Bedside Hemoglobin 13.3 12.0-16.0 g/dl Bedside Hematocrit 39 37-47 % Bedside Sodium 135 135-144 mEq/L Bedside Potassium 3.5 3.3-5.0 mEq/L Bedside Chloride 96 101-112 mEq/L Bedside Total CO2 27 24-31 mEq/l Anion Gap 16.0 9.0 3-11 mmol/L Bedside Blood Urea Nitrogen 32 7-18 mg/dl Bedside Creatinine 1.2 0.6-1.3 mg/dl Bedside Glucose (other) 128 70-99 mg/dl Bedside Ionized Calcium (Luigi) 1.12 1.12-1.32 mmol/l White Blood Count 4.90 4.8-10.8 K/uL Red Blood Count 4.17 4.2-5.4 M/uL Hemoglobin 12.8 12.0-16.0 g/dL Hematocrit 37.8 37-47 % Mean Corpuscular Volume 90.6 80-100 fL Mean Corpuscular Hemoglobin 30.7 25-34 pg Mean Corpuscular Hemoglobin Concent 33.9 32-36 g/dl Platelet Count 232 130-400 K/uL Mean Platelet Volume 9.7 7.4-10.4 fL Neutrophils (%) (Auto) 54.5 % Lymphocytes (%) (Auto) 29.2 % Monocytes (%) (Auto) 15.5 % Eosinophils (%) (Auto) 0.6 % Basophils (%) (Auto) 0.2 % Neutrophils # (Auto) 2.67 1.4-6.5 K/uL Lymphocytes # (Auto) 1.43 1.2-3.4 K/uL Monocytes # (Auto) 0.76 0.11-0.59 K/uL Eosinophils # (Auto) 0.03 0-0.5 K/uL Basophils # (Auto) 0.01 0-0.2 K/uL RDW Standard Deviation 50.2 36.4-46.3 fL RDW Coefficient of Variation 15.3 11.5-14.5 % Immature Granulocyte % (Auto) 0.0 % Immature Granulocyte # (Auto) 0.00 0.00-0.02 K/uL Sodium Level 132 136-145 mmol/L Potassium Level 3.4 3.5-5.1 mmol/L Chloride Level 97 98-107 mmol/L Carbon Dioxide Level 25 21-32 mmol/L Blood Urea Nitrogen 32 7-18 mg/dl Creatinine 1.34 0.60-1.20 mg/dl Est Creatinine Clear Calc Drug Dose 24.2 ml/min Estimated GFR () 45.4 Estimated GFR (Non- 39.2 BUN/Creatinine Ratio 23.6 10-20 Random Glucose 119 70-99 mg/dl Calcium Level 8.6 8.5-10.1 mg/dl Total Bilirubin 0.8 0.2-1 mg/dl Aspartate Amino Transf (AST/SGOT) 36 15-37 U/L Alanine Aminotransferase (ALT/SGPT) 23 12-78 U/L Alkaline Phosphatase 60 45-117 U/L Total Creatine Kinase 23 26-192 U/L Creatine Kinase MB 0.6 0.5-3.6 ng/ml Creatine Kinase MB Ratio 2.6 0-3.0 Troponin I 0.015 0-0.045 ng/ml Pro-B-Type Natriuretic Peptide 317 0-900 pg/ml Total Protein 7.2 6.4-8.2 gm/dl Albumin 3.1 3.4-5.0 gm/dl Globulin 4.1 2.5-4.0 gm/dl Albumin/Globulin Ratio 0.8 0.9-2 Urine Color YELLOW Urine Appearance CLEAR CLEAR Urine pH 6.5 4.5-7.5 Urine Specific [place] 1.039 1.000-1.030 Urine Protein NEG NEG Urine Glucose (UA) NEG NEG Urine Ketones NEG NEG Urine Occult Blood NEG NEG Urine Nitrite NEG NEG Urine Bilirubin NEG NEG Urine Urobilinogen NEG NEG Urine Leukocyte Esterase NEG NEG Diagnostic Radiology (CHEST FOR PE) ANGIO WITH COMPARISON STUDY: 05/27/2017 FINDINGS: Mild atherosclerotic change thoracic aorta. Suggestion of a small focal dissection of the lower aspect of the thoracic aorta, although this most likely represents flow artifact. No significant evidence for aneurysm or dissection. The right suprahilar masslike process is similar. Parenchymal nodularity in the mid to lower lung regions is considered generally stable. Dependent basilar atelectasis is unaltered. Bronchiectasis of the anterior right middle lobe as well as lingula is stable. Pulmonary vasculature enhances appropriately. There are no focal filling defects. IMPRESSION: 1. Study is negative for pulmonary embolus .2. Parenchymal nodularity and right perihilar masslike process unchanged. 3. Basilar atelectatic/bronchiectatic and nodular-type change unaltered from the prior study. EKG Poor data quality, interpretation may be adversely affected Normal sinus rhythm Incomplete right bundle branch block Right ventricular hypertrophy with repolarization abnormality Abnormal ECG When compared with ECG of 19-APR-2017 07:11, T wave inversion no longer evident in Anterolateral leads QT has shortened Impression Assessment and Plan Ms. 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 Possible Pneumonitis/Bronchitis vs Manifestations of ANTONIETTA? - Per outpatient records - plan was to monitor ANTONIETTA and no treatment has been initiated at this point - Prednisone 40 mg daily and Xopenex PRN Chest Pain with CABG x 4 Vessels and HLD/HTN: Follows with Dr. Tian - Admit to telemetry for rhythm monitoring-and obtain serial cardiac enzymes - Pain is reproducible on examination and likely the result of above however has chronic angina on Ranexa and Imdur - ASA 81 mg daily, Lopressor 75 mg BID, Simvastatin 40 mg daily, Imdur 60 mg daily, and Ranexa 500 mg daily Non-Small Cell Lung CA with Metastatic Flavio Disease: Follows with Dr. Stewart - Continue previous dosing of Tarceva at 100 mg daily - to bring in this medication as it is not formulary Mildly Elevated Cr: - IVF given in ED - will allow to take in orals DVT Prophylaxis: Heparin 5000 units SC Q12H Disposition: - Possible D/C next 1-2 days Advanced Directives Existing Living Will: Yes Existing Power of [employer]der First Class: Yes Resuscitation Status VTE Prophylaxis Will order VTE Prophylaxis: Yes
[2017-07-02] MEDS ORDERED: LEVALBUTEROL 0.63MG/3 ML NEB INH PRN (10:00)
[2017-07-02 12:13] LABS: INR 0.9 (0.9-1.1); PTT PATIENT 32.9 SECONDS (21.0-31.0)
[2017-07-02] MEDS ORDERED: IV FLUIDS COMPLETED PRN (12:45)
[2017-07-02] MEDS: POTASSIUM CHLORIDE 10 MEQ TABCR PO SCH ×2 (13:22→21:00)
[2017-07-02] MEDS: ALUMINUM/MAGNESIUM/SIMETH (MAALOX MAX) 30 ML UDC PO PRN ×2 (13:33→17:20)
[2017-07-02] MEDS ORDERED: CALCIUM CARBONATE 500 MG CHEWABLE PO PRN (13:45)
[2017-07-02] MEDS ORDERED: ERLOTINIB 100 MG PO SCH (14:30)
[2017-07-02] MEDS ORDERED: NURSING VERBAL MED ORDER ONE (14:45)
--- NOTE | 2017-07-02 16:16 | ECHOCARDIOGRAM REPORT ---
*NOTICE TO RECEIVING CONSTITUTION PARTY AGENCY This information is strictly Confidential and protected under [place] law. [place] law prohibits you from making any further disclosure of this information unless further disclosure is expressly permitted by the written consent of the person to whom it pertains or is authorized by law. A general authorization for the release of medical or other information is not sufficient for this purpose. Hospital accepts no responsibility if the information is made available to any other person, INCLUDING THE PATIENT. Interpretation Summary * Name: GLORIA KUMARI Study Date: 07/02/2017 10:47 AM BP: 129/74 mmHg * Patient Location: [facility] HR: 133 * : 1945 (M/d/yyyy) Gender: Female Height: 59 in * Age: 72 yrs Ethnicity: CA Weight: 90 lb * Ordering Physician: [facility] Hastings * Referring Physician: Self, Referred * Performed By: Aurora Spencer RDCS * * Reason For Study: Chest pain * BSA: 1.3 m2 * Normal overall left ventricular systolic function. * Mild hypokinesis of the mid to apical anterior, septal, and anteroseptal segments of the left ventricle. The other LV segments are hyperdynamic. * Normal chamber dimensions. * Normal right ventricular systolic function. * Class 1 left ventricular diastolic dysfunction. * Mild mitral regurgitation. * Compared to an echocardiogram of April 17, 2017 the mid apical anterior, anteroseptal, and septal wall motion abnormalities have markedly improved. The overall LV systolic function is now normal. * -- Conclusions -- * Aortic valve sclerosis mild, without significant aortic valvular stenosis. Procedure Details * A complete two-dimensional transthoracic echocardiogram was performed (2D, M-mode, Doppler and color flow Doppler). Left Ventricle * The left ventricle is normal in size. * Proximal septal thickening is noted. * Ejection Fraction = 65-70%. * Left ventricular systolic function is normal. * A full diastolic examination was done with clinical findings of Class I diastolic dysfunction. * Relative mid to apical anterior, septal, and anteroseptal hypokinesis. The other LV segments are hyperdynamic. Right Ventricle * The right ventricle is normal in size and function. Atria * The left atrial size is normal. * Right atrial size is normal. * No ASD detected; PFO is not assessed. Mitral Valve * There is mild to moderate mitral annular calcification. * There is no mitral valve stenosis. * There is mild mitral regurgitation. Tricuspid Valve * The tricuspid valve is not well visualized. * There is no tricuspid stenosis. * There is trace tricuspid regurgitation. Aortic Valve * The aortic valve is trileaflet. * The aortic valve opens well. * Aortic valve sclerosis mild, without significant aortic valvular stenosis. * No aortic regurgitation is present. Pulmonic Valve * The pulmonic valve is not well visualized. * There is no pulmonic valvular stenosis. * There is no significant pulmonary regurgitation. Great Vessels * The aortic root is normal size. * Normal inferior vena cava diameter and respiratory variation suggests normal central venous pressure. MMode 2D Measurements and Calculations IVSd 0.80 cm LVIDd 3.4 cm LVIDs 2.2 cm LVPWd 0.76 cm IVS/LVPW 1.0 FS 34.4 % EDV(Teich) 46.2 ml ESV(Teich) 16.3 ml EF(Teich) 64.7 % EDV(cubed) 38.0 ml ESV(cubed) 10.7 ml EF(cubed) 71.8 % LV mass(C)d 68.5 grams LV mass(C)dI 52.2 grams/m\S\2 SV(Teich) 29.9 ml SI(Teich) 22.7 ml/m\S\2 SV(cubed) 27.3 ml SI(cubed) 20.8 ml/m\S\2 Ao root diam 3.0 cm Ao root area 6.9 cm\S\2 ACS 1.4 cm LA dimension 2.6 cm asc Aorta Diam 2.4 cm LA/Ao 0.88 LVOT diam 2.0 cm LVOT area 3.2 cm\S\2 LVAd ap4 15.4 cm\S\2 LVLd ap4 6.1 cm EDV(MOD-sp4) 31.6 ml EDV(sp4-el) 33.2 ml LVAs ap4 7.8 cm\S\2 LVLs ap4 5.1 cm ESV(MOD-sp4) 10.2 ml ESV(sp4-el) 10.2 ml EF(MOD-sp4) 67.7 % EF(sp4-el) 69.4 % LVAd ap2 12.6 cm\S\2 LVLd ap2 5.5 cm EDV(MOD-sp2) 24.8 ml EDV(sp2-el) 24.8 ml LVAs ap2 6.8 cm\S\2 LVLs ap2 5.1 cm ESV(MOD-sp2) 8.7 ml ESV(sp2-el) 7.7 ml EF(MOD-sp2) 64.9 % EF(sp2-el) 68.8 % LVLd %diff -10.78 % EDV(MOD-bp) 29.6 ml LVLs %diff -0.21 % ESV(MOD-bp) 9.3 ml EF(MOD-bp) 68.5 % SV(MOD-sp4) 21.4 ml SI(MOD-sp4) 16.3 ml/m\S\2 SV(MOD-sp2) 16.1 ml SI(MOD-sp2) 12.3 ml/m\S\2 SV(MOD-bp) 20.3 ml SI(MOD-bp) 15.4 ml/m\S\2 SV(sp4-el) 23.0 ml SI(sp4-el) 17.5 ml/m\S\2 SV(sp2-el) 17.1 ml SI(sp2-el) 13.0 ml/m\S\2 Doppler Measurements and Calculations MV E max arti 61.6 cm/sec MV A max arti 100.9 cm/sec MV E/A 0.61 Ao V2 max 131.9 cm/sec Ao max PG 7.0 mmHg Ao max PG (full) 3.4 mmHg CARIE(V,A) 2.3 cm\S\2 CARIE(V,D) 2.3 cm\S\2 LV V1 max PG 3.6 mmHg LV V1 max 94.3 cm/sec PA V2 max 119.4 cm/sec PA max PG 5.7 mmHg PA acc slope 916.9 cm/sec\S\2 PA acc time 0.11 sec PA pr(Accel) 28.3 mmHg
[2017-07-02] MEDS: ONDANSETRON INJ 2 MG/ML 2 ML VIAL IV PRN (17:15)
[2017-07-02] MEDS ORDERED: SIMVASTATIN 40 MG TAB PO SCH (21:00)
[2017-07-02] MEDS ORDERED: RALOXIFENE 60 MG TAB PO SCH (21:00)
[2017-07-02] MEDS: METOPROLOL TARTRATE 50 MG TAB PO SCH (21:01)
[2017-07-02] MEDS: PANTOprazole SOD 40 MG TAB PO SCH (21:02)
[2017-07-02] MEDS: CEVIMELINE 30 MG PO SCH (21:02)
[2017-07-02] MEDS: HEPARIN SOD 5000 UNIT/0.5 ML CARP SQ SCH (21:07)
[2017-07-03] MEDS: ONDANSETRON INJ 2 MG/ML 2 ML VIAL IV PRN ×2 (00:24→07:39)
[2017-07-03 05:13] VITALS: BP 123/76; PULSE 79; TEMP 36.5; O2SAT 96
[2017-07-03 05:39] LABS: HEMATOCRIT 34.2 % (37-47); MEAN CELL VOLUME 91.2 fL (80-100); MEAN CORPUSCULAR HEMOGLOBIN 29.3 pg (25-34); MEAN CORPUSCULAR HGB CONC 32.2 g/dl (32-36); MEAN PLATELET VOLUME 9.4 fL (7.4-10.4); PLATELET COUNT 236 K/uL (130-400); RED CELL DISTRIBUTION WIDTH CV 15.8 % (11.5-14.5); RED CELL DISTRIBUTION WIDTH SD 52.5 fL (36.4-46.3); WHITE BLOOD COUNT 7.77 K/uL (4.8-10.8)
[2017-07-03 06:14] LABS: CALCIUM 8.1 mg/dl (8.5-10.1); CREATININE 1.16 mg/dl (0.60-1.20); POTASSIUM 4.5 mmol/L (3.5-5.1)
[2017-07-03 06:58] VITALS: BP 116/77; PULSE 78; TEMP 36.6; O2SAT 96
[2017-07-03 08:11] VITALS: BP 129/81; PULSE 80
[2017-07-03] MEDS: METOPROLOL TARTRATE 50 MG TAB PO SCH (08:15)
[2017-07-03] MEDS: POTASSIUM CHLORIDE 10 MEQ TABCR PO SCH (08:16)
[2017-07-03] MEDS: PANTOprazole SOD 40 MG TAB PO SCH (08:16)
[2017-07-03] MEDS: CEVIMELINE 30 MG PO SCH (08:17)
[2017-07-03] MEDS: HEPARIN SOD 5000 UNIT/0.5 ML CARP SQ SCH (08:21)
[2017-07-03] MEDS: ALUMINUM/MAGNESIUM/SIMETH (MAALOX MAX) 30 ML UDC PO PRN (08:24)
[2017-07-03] MEDS ORDERED: PRT40 PO (08:47)
[2017-07-03] MEDS ORDERED: PRD20 PO (08:47)
--- NOTE | 2017-07-03 08:52 | Discharge Instructions ---
Discharge Instructions Date of Service Jul 03, 2017. Admission Reason for Admission: Pneumonitis Discharge Discharge Diagnosis / Problem: Shortness of Breath and GERD Discharge Goals Goal(s): Decrease discomfort, Improve function, Increase independence Activity Recommendations Activity Limitations: resume your previous activity . Instructions / Follow-Up Instructions / Follow-Up Possible Pneumonitis: - This may have been brought on by the increased dose of Tarceva as it can cause some shortness of breath versus some inflammation in the lungs - Hold your daily Prednisone and take 40 mg for the next 4 days then when this is done you can continue your daily prednisone as previously prescribed Chest Pain: - This may be more of a GI component as well as the inflammation as pushing on your chest seemed to make this worse - Recommend Protonix 40 mg twice a day for 14 days and would recommend talking to your doctor about using an acid reducing medication every day to help with reflux - This does not appear cardiac as your enzymes, rhythm, and echo of your heart look good. Non-Small Cell Lung CA: - Continue previous dosing of Tarceva at 100 mg daily and recommend to follow- up with Dr. Stewart to discuss this Current Hospital Diet Patient's current hospital diet: AHA Diet (Heart Healthy) Discharge Diet Recommended Diet: AHA Diet (Heart Healthy) Pending Studies Studies pending at discharge: no Laboratory Results Lipid Panel Test 04/18/17 03:35 Range/Units Triglycerides Level 144 0-150 mg/dl Cholesterol Level 65 0-200 mg/dl HDL Cholesterol 12 mg/dl Cholesterol/HDL Ratio 5.4 LDL Cholesterol, Calculated 24 mg/dl Medical Emergencies . Who to Call and When: Medical Emergencies: If at any time you feel your situation is an emergency, please call 911 immediately. . Non-Emergent Contact Non-Emergency issues call your: Primary Care Provider Call Non-Emergent contact if: you have a fever, your pain is concerning you, you have any medication questions . . "Provider Documentation" section prepared by [facility]. .
[2017-07-03] MEDS ORDERED: ERLOTINIB 100 MG PO SCH (09:00)
[2017-07-03] MEDS ORDERED: ASPIRIN 81 MG ECTAB PO SCH (09:00)
[2017-07-03] MEDS ORDERED: ISOSORBIDE MONONITRATE 60 MG TABCR PO SCH (09:00)
[2017-07-03] MEDS ORDERED: RANOLAZINE 500 MG ER TAB PO SCH (09:00)
[2017-07-03 10:57] VITALS: BP 113/77; PULSE 78; TEMP 37; O2SAT 93
[2017-07-03 11:15] VITALS: BP 129/81; PULSE 80; TEMP 36.6; O2SAT 96
--- NOTE | 2017-07-03 13:31 | Discharge Summary ---
Discharge Summary Date of Service Jul 03, 2017. Discharge Summary Admission Date: Jul 02, 2017 at 10:35 Discharge Date: Jul 03, 2017 Discharge Disposition: Home Principal Diagnosis: GERD; Possible Pneumonitis Problems/Secondary Diagnoses: 1. Gastric Lymphoma (Remission) 2. 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 CAD S/P CABG x 4 Vessels 4. HTN 5 HLD 6. Chronic Angina 7. Chronic Cough 8. ANTONIETTA 9. Immunoglobulin Deficiency 10. Sjogrens Immunizations: Have You Had Influenza Vaccine: Yes Influenza Vaccine Date: Jan 10, 2013 History of Tetanus Vaccine?: Yes Tetanus Immunization Date: Aug 17, 2008 History of Pneumococcal: Yes Pneumococcal Date: Feb 16, 2009 History of Hepatitis B Vaccine: No Procedures: (CHEST FOR PE) ANGIO WITH FINDINGS: Mild atherosclerotic change thoracic aorta. Suggestion of a small focal dissection of the lower aspect of the thoracic aorta, although this most likely represents flow artifact. No significant evidence for aneurysm or dissection. The right suprahilar masslike process is similar. Parenchymal nodularity in the mid to lower lung regions is considered generally stable. Dependent basilar atelectasis is unaltered. Bronchiectasis of the anterior right middle lobe as well as lingula is stable. Pulmonary vasculature enhances appropriately. There are no focal filling defects. IMPRESSION: 1. Study is negative for pulmonary embolus 2. Parenchymal nodularity and right perihilar masslike process unchanged. 3. Basilar atelectatic/bronchiectatic and nodular-type change unaltered from the prior study. ECHOCARDIOGRAM Normal overall left ventricular systolic function. * Mild hypokinesis of the mid to apical anterior, septal, and anteroseptal segments of the left ventricle. The other LV segments are hyperdynamic. * Normal chamber dimensions. * Normal right ventricular systolic function. * Class 1 left ventricular diastolic dysfunction. * Mild mitral regurgitation. * Compared to an echocardiogram of April 17, 2017 the mid apical anterior , anteroseptal, and septal wall motion abnormalities have markedly improved. Medication Reconciliation New Medications: Pantoprazole (Pantoprazole Sodium) 40 Mg Tab 40 MG PO BID for 14 Days, #28 TAB Prednisone (Prednisone) 20 Mg Tab 40 MG PO DAILY, #4 TAB Continued Medications: Albuterol Sulfate (Proair Respiclick) 108 Mcg/Act Aer 2 PUFFS INH BID Aspirin (Aspirin 81) 81 Mg Tab 1 TAB PO QAM OK WITH SURGEON TO CONTINUE PER PT Benzonatate (Tessalon Perles) 100 Mg Cap 100 MG PO TID PRN for Cough, CAP Calcium Carbonate-Cholecalcife (Caltrate 600+D) 1 Tab Tab 1 TAB PO BID Cevimeline Hcl (Cevimeline Hcl) 30 Mg Cap 30 MG PO TID Epinephrine (Epipen) 0.3 Mg/0.3 Ml Inj 0.3 MG IM UD PRN for ALLERGIC REACTION PT ON HYZENTRA INFUSION WEEKLY AND THE EPI WAS PRESCRIBED IN CASE OF REACTION TO THIS MEDICATION Erlotinib (Tarceva) 100 Mg Tab 100 MG PO DIRECTED, TAB Hydrocodone/Homatropine (Hydromet 5-1.5 mg/5Ml) 5 Ml/Cup Syrp 5 ML PO Q4H PRN for Cough, #180 ML Isosorbide Mononitrate (Imdur Ext Rel) 60 Mg Tab 60 MG PO QAM, TAB Magnesium (Magnesium 250 mg) 1 Tab Tab 1 TAB PO QAM Metoprolol Tartrate (Lopressor) (Lopressor) 50 Mg Tab 75 MG PO BID, TAB Multivitamins/Minerals (Mvi With Minerals) Tab 1 TAB PO QPM, TAB Nitroglycerin (Nitrostat) 0.4 Mg Sub 0.4 MG UT UD PRN for Chest Pain Ondansetron (Ondansetron HCl) 4 Mg Tab 4 MG SL Q6H for 30 Days, #120 TAB Potassium Ext Rel (Klor-Con) 20 Meq Tabcr 10 MEQ PO TID, TAB Prednisone (Prednisone) 1 Mg Tab 3 MG PO QAM, TAB Probiotic Product (Probiotic) 1 Cap Cap 1 TAB PO QPM Prochlorperazine Maleate (Compazine) 10 Mg Tab 10 MG PO PRN for Nausea or Vomiting, TAB Raloxifene HCl (Raloxifene Hydrochloride) 60 Mg Tab 60 MG PO QPM, #90 Ranolazine (Ranexa) 500 Mg Tabcr 1 TAB PO QAM Resveratrol (Pa Resveratrol) 250 Mg Cap 500 MG PO HS Simvastatin (Zocor) 40 Mg Tab 40 MG PO HS, TAB Tramadol (Ultram) 50 Mg Tab 50 MG PO Q4H PRN for Pain, #15 TAB [Hyzentra] () 1 DOSE INJ FRIDAYS Discharge Exam Review of Systems: Constitutional: No fever, No chills ENT: No nasal symptoms, No sore throat Respiratory: + cough, No sputum, No wheezing, No dyspnea on exertion, No dyspnea at rest Cardiovascular: No chest pain Abdomen: No pain, No nausea, No vomiting Musculoskeletal: No swelling, No calf pain Genitourinary - Female: No dysuria Hematologic / Lymphatic: No abnormal bleeding/bruising Physical Exam: General Appearance: WD/WN, no apparent distress Eyes: sclerae normal ENT: hearing grossly normal Neck: supple, no JVD, trachea midline Respiratory/Chest: lungs clear, normal breath sounds, no respiratory distress, no accessory muscle use Cardiovascular: regular rate, rhythm Abdomen / GI: normal bowel sounds, non tender, soft Extremities: no pedal edema Neurologic/Psychiatric: alert Skin: normal color, warm/dry Hospital Course ADMISSION: Ms. Vega is a 72 y/o female with PMHx of Gastric Lymphoma ( Remission), Non-Small Cell Lung CA with Metastatic Flavio Disease, CAD S/P CABG x 4 Vessels, HTN, HLD, Chronic Angina, Chronic Cough, ANTONIETTA, Immunoglobulin Deficiency, and Sjogrens who presents to the ED c/o SOB and CP x 2 days. Patient states she was in her normal state of health approximately 2 days ago. She does report a chronic cough and chronic angina that is well controlled on her Imdur and Ranexa. She states she was started on Tarceva approximately 1 month ago. She was started at a lower dose of 100 mg daily. Due to responding well to therapy on Thursday she was instructed to increase her dose to 150 mg daily. She states at this point is when she developed shortness of breath and chest pain. Due to her symptoms she took only 100 mg on Thursday. She is not sure if the shortness of breath or chest pain came first. She states the shortness of breath is midsternal with a pressure-like component. This pain does not radiate. She states that exertion does increase this pain. She states this chest pain has been constant 2 days but acutely exacerbates sporadically. Pain is reproducible with palpation of the anterior chest wall. In regards to her shortness of breath, she feels that it suddenly occurred and feels as if she cannot catch her breath. She reports a chronic cough that is unchanged. This is unproductive. She did not feel much change with the DuoNeb in the ED. Is breathing easier with supplemental O2 applied however even on room air is appropriately saturating at approximately 98%. Lung examination is clear in all lung day without wheezing and good aeration. She reports associated chills and nausea. She does not feel that this discomfort is coming from the GI tract. She states her prescribed nausea medications relieve the symptoms. She denies sick contacts and did receive her influenza vaccine. Upon review of outpatient records, patient was diagnosed with ANTONIETTA in February of 2017. She had a mediastinoscopy performed by Dr. Bee. She followed up with infectious disease who plans on monitoring due to treatment would interfere with current medications. In the emergency department, patient is afebrile without leukocytosis however is immunocompromised. CTA is negative for PE and shows stable changes in regards to her cancer. She received DuoNeb treatment with minimal improvement of symptoms. Reports symptom improvement with placement of supplemental O2 even with adequate oxygenation. She has a mildly elevated creatinine of 1.3 with baseline being 1.0-1.1. Ms. 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 HOSPITAL COURSE: Ms. Vega was admitted for chest pain and shortness of breath. Her symptoms seem to be more consistent with the respiratory cause and/ or GI source. Patient was placed on telemetry for rhythm monitoring which reveals normal sinus rhythm. Cardiac enzymes obtained and negative. Repeat echocardiogram obtained in please see above procedures for official read. Her chest pain also have a component of reproducibility. She will be treated with prednisone 40 mg 5 days and then may resume her chronic prednisone. Given her improvement with Maalox for her chest pain she will continue on Protonix 40 mg BID 14 days could consider chronic PPI pending tolerance and response. Instructed to continue her Tarceva at the previously prescribed dose of 100 mg daily. Will assist with follow-up appointment with Dr. Stewart to discuss this treatment and whether to continue to increase this to 150 mg daily. All other home medications were continued as previously prescribed without any adjustments. Patient is no longer short of breath or complaining of chest pain. She ambulated the halls without difficulty. She will return home with outpatient follow-up. Total Time Spent: Greater than 30 minutes This includes examination of the patient, discharge planning, medication reconciliation, and communication with other providers. Discharge Instructions Please refer to the electronic Patient Visit Report (Discharge Instructions) for additional information. Additional Copies To Evin Tinajero M.D.; Kade Stewart D.O.
== END 2017-07-03 11:55 | disposition home or self-care (01) ==
LOC: C.EDB 06:58 → ENRESERV 10:02 → C.MED 10:35
PROVIDERS: ADMIT Internal Medicine; ATTEND Internal Medicine
DX: K21.9 Gastro-esophageal reflux disease without esophagitis (principal); C83.33 Diffuse large B-cell lymphoma, intra-abdominal lymph nodes; I25.119 Atherosclerotic heart disease of native coronary artery with unspecified angina pectoris; Z95.1 Presence of aortocoronary bypass graft; I10 Essential (primary) hypertension; E78.5 Hyperlipidemia, unspecified; R05 Cough; D80.9 Immunodeficiency with predominantly antibody defects, unspecified; M35.00 Sjogren syndrome, unspecified; C34.90 Malignant neoplasm of unspecified part of unspecified bronchus or lung; Z79.899 Other long term (current) drug therapy; Z79.82 Long term (current) use of aspirin; Z90.710 Acquired absence of both cervix and uterus; I25.2 Old myocardial infarction; Z83.3 Family history of diabetes mellitus; Z82.49 Family history of ischemic heart disease and other diseases of the circulatory system

== ENCOUNTER 2017-07-08 14:27 | Observation (INO) | payer BC, OTHER ==
[~2017-07-08] VITALS: Ht 147.3 cm; Wt 43.7 kg
[~2017-07-08 14:27] MED LIST changes: +PRD20 PO; +PRT40 PO; +[UNRECOGNIZED DRUG - CODE] PO
[2017-07-08 15:30] VITALS: BP 117/81; PULSE 78; TEMP 36.9; BMI 12.5
--- NOTE | 2017-07-08 16:27 | History and Physical ---
History & Physical Date & Time of Service: Jul 08, 2017 at 16:18 Chief Complaint: Dehydration,Severe N/V,Lung Ca Primary Care Physician: Evin Tinajero M.D. 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 She reports constant dry heaves throughout the day today and presented to the Cancer center for routine appointment with Dr. Stewart where she noted her symptoms. At that point a direct admission was called. Pt has been unable to tolerate much po intake in past 48 hours, and has also vomited up most of her medications. She was administered zofran in the cancer center prior to arrival. Pt was told to ask for ativan for nausea once here on the floor. She mentions that Dr. Devine plans to discontinue Tarveca today as there is possibility that her reactions are from the medication itself. Tarceva was initiated about 1.5 mo ago. It was increased last week to 150 mg however she was admitted under observation on 07/02-07/03 for worsening SOB and cough along with substernal pressure which was determined to be noncardiac. She responded well to duonebs and steroids which were transitioned to a prednisone taper. She has 2 days left of 20 mg daily and then should resume her normal Prednisone 3 mg per day for Sjogrens syndrome. Labs were drawn at Cancer institute indicating: Th=549, K+= 4.4, a slight bump in Cr of 1.21, compared to baseline on 0.95-1.0. WBC = 9.12, Hgb 13.1, HCT- 39.4, ZEA=463. Her vitals upon arrival to med/surg were stable with BP of 118/71, HR=78, afebrile, adequate saturations on room air. Past Medical/Surgical History Medical Problems: (1) ASHD (arteriosclerotic heart disease) (2) Autoimmune hepatitis (3) B-cell lymphoma of solid organ (4) BRONCOPNEUMONIA ORG NOS (5) Coronary artery bypass grafts x 4 (6) Sjogren's disease (7) Non-small cell lung cancer (NSCLC) (8) Osteoporosis Nec (9) Hypothyroidism Nos (10) Immunodeficiency (11) Mycobacterium avium-intracellulare infection (12) Lymphedema (13) HTN (14) HLD (15) hypogammaglobulinemia Surgical Problems: (1) H/O: hysterectomy Family History Diabetes mellitus Hypertension Social History The patient notes her son, age 51 who is disabled from a stroke lives with her and - was diagnosed with lymphoma 2 weeks ago. He is supposed to have a biopsy next Thursday and she wants to be home for this. Smoking Status: Never Smoker Drug Use: none Marital Status: Housing status: lives with family Occupational Status: unemployed Immunizations History of Influenza Vaccine: Yes Influenza Vaccine Date: Jan 10, 2013 History of Tetanus Vaccine?: Yes Tetanus Immunization Date: Aug 17, 2008 History of Pneumococcal: Yes Pneumococcal Date: Feb 16, 2009 History of Hepatitis B Vaccine: No Allergies Coded Allergies: No Known Allergies (Unverified , 07/02/17) Home Medications Scheduled Albuterol Sulfate (Proair Respiclick), 2 PUFFS INH BID Aspirin (Aspirin 81), 1 TAB PO QAM Calcium Carbonate-Cholecalcife (Caltrate 600+D), 1 TAB PO BID Cevimeline Hcl (Cevimeline Hcl), 30 MG PO TID Erlotinib (Tarceva), 100 MG PO DIRECTED Immune Globulin (Human) Subcut (Hizentra), 8 GM INJ WK Isosorbide Mononitrate (Imdur Ext Rel), 60 MG PO QAM Magnesium (Magnesium 250 mg), 1 TAB PO QAM Metoprolol Tartrate (Lopressor) (Lopressor), 75 MG PO BID Multivitamins/Minerals (Mvi With Minerals), 1 TAB PO QPM Ondansetron (Ondansetron HCl), 4 MG SL Q6H Pantoprazole (Pantoprazole Sodium), 40 MG PO BID Potassium Ext Rel (Klor-Con), 10 MEQ PO TID Prednisone (Prednisone), 3 MG PO QAM Prednisone (Prednisone), 40 MG PO DAILY Probiotic Product (Probiotic), 1 TAB PO QPM Raloxifene HCl (Raloxifene Hydrochloride), 60 MG PO QPM Ranolazine (Ranexa), 1 TAB PO Q12 Simvastatin (Zocor), 40 MG PO HS Triamterene/Hctz (Triamterene/Hctz 37.5-25MG), 1 TAB PO DAILY Scheduled PRN Benzonatate (Tessalon Perles), 100 MG PO TID PRN for Cough Epinephrine (Epipen), 0.3 MG IM UD PRN for ALLERGIC REACTION Hydrocodone/Homatropine (Hydromet 5-1.5 mg/5Ml), 5 ML PO Q4H PRN for Cough Nitroglycerin (Nitrostat), 0.4 MG UT UD PRN for Chest Pain Prochlorperazine Maleate (Compazine), 10 MG PO for Nausea or Vomiting Tramadol (Ultram), 50 MG PO Q4H PRN for Pain Review of Systems Constitutional: + chills, + weight loss (~20lbs in past 3 mo since lung cx diagnosis), + weakness, + fatigue, No fever, No sweats Eyes: No redness, No diplopia ENT: + trouble swallowing (feels a lump in her throat since node bx in Feb 2017 ), No sore throat Respiratory: No cough, No sputum, No wheezing, No shortness of breath Cardiovascular: No chest pain, No edema, No palpitations Abdomen: + nausea, + vomiting, No pain, No diarrhea, No constipation Musculoskeletal: + swelling (occasionally in BLE), No joint pain Genitourinary - Female: No dysuria Neurologic: + weakness, No numbness/tingling Psychiatric: + anxiety, No depression symptoms Integumentary: No rash, No itch Physical Exam General Appearance: WD/WN, no apparent distress, + thin Head: normocephalic, atraumatic Eyes: PERRL, EOMI ENT: hearing grossly normal, pharynx normal, + pertinent finding (MM dry, partial denture plate is out) Neck: supple, no JVD Respiratory/Chest: lungs clear, no respiratory distress, no accessory muscle use, + pertinent finding (cough which causes dry heaves, + mediport L chest wall accessed) Cardiovascular: regular rate, rhythm, no JVD, no murmur, normal peripheral pulses Abdomen/GI: normal bowel sounds, non tender, soft Back: normal inspection Extremities/Musculoskelatal: no calf tenderness, + pedal edema (trace edema), + pertinent finding (chronic venous stasis changes, lesion over R ant tib healing. 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 Dehydration Intractable N/V possibly from chemotherapy (Tarceva) - Admit under observation - Zofran, compazine and ativan 0.5 mg iv for severe nausea - Will start on NSS at 100ml/hr x 1L for gentle hydrations with reduced EF - PT/OT - Allow regular diet as pt can tolerate CAD s/p CABG x 4 in Dec 2010 Ischemic cardiomyopathy with anteroseptal WMA and EF of 40-45% in Mar 2017 HLD HTN - Continue on metoprolol 75 mg BID, asa 81 mg daily, imdur 60 mg daily - holding triamterene/hctz with dehydration as above, Sjgren syndrome - Continue prednisone 20 mg x 2 days to complete course for recent admission with shortness of breath due to bronchitis then can resume normal home regimen of Prednisone3 mg daily. Metastatic NSCLC - Follows with Dr. Stewart as an outpt - d/c Tarceva at this time as possible that this medication is causing adverse effects. Large B cell nonhodgkins Lymphoma - in remission Autoimmune hepatitis- Stable Hypogammaglobinemia - Continue weekly injection of Hizentra on Fridays Mycobacterium avium complex s/p triple therapy with recurrence - Follows with Dr. Jon as an outpatient, currently not under therapy Osteoporosis - Continue multivitamin, ca + vit d, evista 60 mg when able to tolerate PO meds DVT ppx: teds, scds, hold on chemical anticoagulation for now CODE STATUS: FULL CODE Disposition: From home, lives with , PT/OT to eval. I personally interviewed and examined the patient. I agree with history of present illness and physical exam mentioned above, I also performed my own history taking and examination. Past medical history and review of system has been obtained by myself I reviewed all pertinent labs and studies Reviewed current medications I discussed and formulated of the assessment and plan mentioned above. Please refer to the Summary mentioned below. 72-year-old female with past medical history of T-cell lymphoma status post chemotherapy, CAD status post CABG, cardiomyopathy, hypertension and dyslipidemia recently diagnosed with metastatic NSCLC adenocarcinoma. 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 Also patient had acute kidney injury/chronic kidney disease, reported that she has been vomiting for the past few days and significantly dehydrated. Patient will be admitted for rehydration and treatment of gastritis. As needed nausea medications and to be able to administer her oral medications General Appearance: not in acute distress Eyes: normal Sclerae, extraocular muscle intact ENT: hearing grossly normal Neck: supple Respiratory/Chest: normal air entry bilateral ,no respiratory distress, no accessory muscle use Cardiovascular: regular rate, rhythm, no murmur Abdomen: non tender, soft, no masses Extremities: no edema Neurologic/Psychiatric: Awake alert oriented times place and person moves all extremities sensation intact cranial nerves II-12 appear to be intact, she was able to walk with assistance for about 20 feet does not appear to have significant ataxia Skin: normal color, warm/dry, no rash Albertina Cleary MD, [facility] Resuscitation Status VTE Prophylaxis Will order VTE Prophylaxis: Yes
[2017-07-08] MEDS ORDERED: SODIUM CHLORIDE 0.9% 1000ML 1,000 ML IV SCH (16:33)
[2017-07-08] MEDS ORDERED: ACETAMINOPHEN 325 MG TAB PO PRN (16:45)
[2017-07-08] MEDS ORDERED: POLYETHYLENE (MIRALAX) 17 GM PACK PO PRN (16:45)
[2017-07-08] MEDS ORDERED: HYDROCODONE/HOMATROPINE SYRUP 5MG/1.5MG 5ML UDP PO PRN (17:15)
[2017-07-08] MEDS ORDERED: TRAMADOL HCL 50 MG TAB PO PRN (17:15)
[2017-07-08] MEDS ORDERED: TRIATAB3 PO (17:18)
[2017-07-08] MEDS ORDERED: IMMU4INJ INJ (17:18)
[2017-07-08] MEDS: ONDANSETRON INJ 2 MG/ML 2 ML VIAL IV PRN (17:33)
[2017-07-08 17:46] VITALS: BP 110/75; PULSE 79; TEMP 36.9; O2SAT 96
[2017-07-08] MEDS ORDERED: IV FLUIDS COMPLETED PRN (18:30)
[2017-07-08] MEDS ORDERED: ASPIRIN 81 MG ECTAB PO STA (18:39)
[2017-07-08 19:55] LABS: INR 1.1 (0.9-1.1)
--- NOTE | 2017-07-08 20:02 | DIAGNOSTIC IMAGING REPORT ---
CT SCAN OF THE BRAIN WITHOUT IV CONTRAST CLINICAL HISTORY: Ataxia. COMPARISON STUDY: CT of the brain dated 03/23/2015. TECHNIQUE: Unenhanced axial CT scan of the brain is performed from the vertex to the skull base. A dose lowering technique was utilized adhering to the principles of ALARA. CT DOSE: 537.48 mGy.cm FINDINGS: Brain parenchyma: There are age-related involutional changes noting mild subcortical and periventricular microangiopathic change. There is no hemorrhage, mass effect, or evidence of acute territorial ischemia by CT criteria. Ibarra-white matter is preserved. No extra-axial fluid collection is seen. Ventricles, sulci, cisterns: Prominent secondary to involutional change. Intracranial vasculature: There is atherosclerotic calcification of the cavernous carotid and vertebral arteries. Calvarium: Unremarkable. Sinuses and mastoids: The visualized paranasal sinuses are clear. The mastoid air cells are well pneumatized. Orbits: The bony orbits are grossly intact. IMPRESSION: There is no hemorrhage, mass effect, or evidence of acute territorial ischemia by CT criteria. Electronically signed by: Han Bolanos M.D. 07/08/2017 8:01 PM Dictated Date/Time: 07/08/2017 7:59 PM
[2017-07-08] MEDS: METOPROLOL TARTRATE 50 MG TAB PO SCH (20:23)
[2017-07-08] MEDS: ALBUTEROL HFA 8 GM INHALER INH SCH (20:23)
[2017-07-08] MEDS: CALCIUM 600MG + VIT D 400 IU TAB PO SCH (20:23)
[2017-07-08] MEDS: RALOXIFENE 60 MG TAB PO SCH (20:24)
[2017-07-08] MEDS: PROCHLORPERAZINE MALEATE 10 MG TAB PO PRN (20:44)
[2017-07-08] MEDS: LORAZEPAM INJ 0.5 MG in SYRINGE 0.25 ML IV PRN (20:44)
[2017-07-08] MEDS: HEPARIN SOD 5000 UNIT/0.5 ML CARP SQ SCH (20:46)
[2017-07-08 23:25] VITALS: BP 104/66; PULSE 75; TEMP 36.5; O2SAT 90
[2017-07-08] MEDS: CEVIMELINE~ORDER AWAITING ACTION SCH (23:54)
[2017-07-09] MEDS: ONDANSETRON INJ 2 MG/ML 2 ML VIAL IV PRN ×4 (01:51→17:50)
[2017-07-09 03:58] VITALS: BP 104/65; PULSE 72; TEMP 36.7; O2SAT 97
[2017-07-09 05:40] LABS: EOS % 0.5 %; EOS ABS # 0.02 K/uL (0-0.5); HEMATOCRIT 30.4 % (37-47); HEMOGLOBIN 10.2 g/dL (12.0-16.0); IG# 0.01 K/uL (0.00-0.02); LYMPH % 20.2 %; LYMPH ABS # 0.77 K/uL (1.2-3.4); MEAN CELL VOLUME 90.2 fL (80-100); MEAN CORPUSCULAR HEMOGLOBIN 30.3 pg (25-34); MEAN CORPUSCULAR HGB CONC 33.6 g/dl (32-36); MEAN PLATELET VOLUME 9.3 fL (7.4-10.4); MONO % 12.1 %; MONO ABS # 0.46 K/uL (0.11-0.59); NEUT % 66.9 %; NEUT ABS # 2.55 K/uL (1.4-6.5); PLATELET COUNT 128 K/uL (130-400); RED CELL DISTRIBUTION WIDTH CV 15.7 % (11.5-14.5); RED CELL DISTRIBUTION WIDTH SD 52.1 fL (36.4-46.3); WHITE BLOOD COUNT 3.81 K/uL (4.8-10.8)
[2017-07-09 06:07] LABS: CALCIUM 8.2 mg/dl (8.5-10.1); CREATININE 0.95 mg/dl (0.60-1.20); POTASSIUM 3.6 mmol/L (3.5-5.1)
[2017-07-09 07:42] VITALS: BP 106/73; PULSE 75; TEMP 36.8; O2SAT 97
[2017-07-09] MEDS ORDERED: PNEUMOCOCCAL POLYSACCHARIDES 25 MCG/0.5 ML VIAL/SYR IM. ONE (08:00)
[2017-07-09] MEDS: CEVIMELINE~ORDER AWAITING ACTION SCH (08:00)
[2017-07-09] MEDS ORDERED: PNEUMOCOCCAL ADMINISTRATION CHARGE ONE (08:00)
[2017-07-09] MEDS: PROCHLORPERAZINE MALEATE 10 MG TAB PO PRN (08:08)
[2017-07-09] MEDS: ASPIRIN 81 MG ECTAB PO SCH (08:09)
[2017-07-09] MEDS: ALBUTEROL HFA 8 GM INHALER INH SCH ×2 (08:09→20:59)
[2017-07-09] MEDS: LACTOBACILLUS ACIDOPHILUS (FLORANEX) TAB PO SCH ×3 (08:09→16:54)
[2017-07-09] MEDS: CALCIUM 600MG + VIT D 400 IU TAB PO SCH ×2 (08:11→21:01)
[2017-07-09] MEDS: RANOLAZINE 500 MG ER TAB PO SCH (08:11)
[2017-07-09] MEDS: ISOSORBIDE MONONITRATE 60 MG TABCR PO SCH (08:11)
[2017-07-09] MEDS: METOPROLOL TARTRATE 50 MG TAB PO SCH ×2 (08:12→21:04)
[2017-07-09] MEDS: BENZONATATE 100MG CAP PO PRN ×2 (08:13→16:58)
[2017-07-09] MEDS ORDERED: NURSING DECISION MEDICATION ORDER SCH (08:45)
[2017-07-09] MEDS: LORAZEPAM INJ 0.5 MG in SYRINGE 0.25 ML IV PRN ×2 (09:16→21:27)
[2017-07-09] MEDS: HEPARIN SOD 5000 UNIT/0.5 ML CARP SQ SCH ×2 (09:22→21:28)
[2017-07-09] MEDS ORDERED: MICONAZOLE NITRATE POWDER 43 GM EXT PRN (10:15)
[2017-07-09] MEDS ORDERED: MAGIC MOUTHWASH PO PRN (10:15)
[2017-07-09] MEDS ORDERED: DEXAMETHASONE CONC SOLN 3.75 MG, NYSTATIN SUSP 30 ML, DiphenhydrAMINE HCL SYRUP 300 MG,... PO PRN ×5 (10:30)
[2017-07-09] MEDS: PANTOprazole INJ 40 MG in SYRINGE 0 ML IV SCH (10:53)
--- NOTE | 2017-07-09 12:12 | Hospitalist Progress Note ---
Hospitalist Progress Note Date of Service Jul 09, 2017. Subjective Pt evaluation today including: conversation w/ patient, physical exam, lab review, review of studies, review of inpatient medication list Voiding: no voiding problems Patient resting in bed. Feeling improved since admission. Appetite slowing returning. Nausea/vomiting improving- Ativan helping the best. Walked the halls with her this AM. [place] stronger, a little dizzy. Had BM this AM. No diarrhea. Patient denies any fever, chills, sweats, lightheadedness, vision changes, CP, palpitations, edema, SOB, wheezing, cough, abdominal pain, diarrhea, urinary symptoms, melena, numbness/tingling, muscle/joint pain, anxiety/depression, active bleeding, or new skin discoloration/changes. Medications Current Inpatient Medications Medications (Trade) Dose Ordered Sig/Jimmy Route Start Time Stop Time Status Last Admin Dose Admin Acetaminophen (Tylenol Tab) 650 mg Q4H PRN PO 07/08/17 16:45 08/07/17 16:44 Polyethylene (Miralax Powder Packet) 17 gm DAILY PRN PO 07/08/17 16:45 08/07/17 16:44 Ondansetron HCl (Zofran Inj) 4 mg Q6H PRN IV 07/08/17 16:45 08/07/17 16:44 07/09/17 06:38 4 MG Aspirin (Ecotrin Tab) 81 mg QAM PO 07/09/17 08:00 08/08/17 07:59 07/09/17 08:09 81 MG Benzonatate (Tessalon Perles Cap) 100 mg TID PRN PO 07/08/17 17:15 08/07/17 17:14 07/09/17 08:13 100 MG Hydrocodone Bit/ Homatropine Methylb (Hycodan Syrup) 5 ml Q4H PRN PO 07/08/17 17:15 07/22/17 17:14 Isosorbide Mononitrate (Imdur Ext Rel Tab) 60 mg QAM PO 07/09/17 08:00 08/08/17 07:59 07/09/17 08:11 60 MG Metoprolol Tartrate (Lopressor Tab) 75 mg BID PO 07/08/17 20:00 08/07/17 19:59 07/09/17 08:12 75 MG Prednisone (PredniSONE TAB) 20 mg DAILY PO 07/09/17 08:00 07/11/17 07:59 07/09/17 08:10 20 MG Prochlorperazine Maleate (Compazine Tab) 10 mg Q8H PRN PO 07/08/17 17:15 08/07/17 17:14 07/09/17 08:08 10 MG Raloxifene HCl (Evista Tab) 60 mg QPM PO 07/08/17 21:00 08/07/17 20:59 07/08/17 20:24 60 MG Ranolazine (Ranexa ER Tab) 500 mg QAM PO 07/09/17 08:00 08/08/17 07:59 07/09/17 08:11 500 MG Tramadol HCl (Ultram Tab) 50 mg Q4H PRN PO 07/08/17 17:15 08/07/17 17:14 Albuterol (Ventolin Hfa Inhaler) 2 puffs BID INH 07/08/17 20:00 08/07/17 19:59 07/09/17 08:09 2 PUFFS Calcium/Vitamin D (Caltrate Plus Tab) 1 tab BID PO 07/08/17 20:00 08/07/17 19:59 07/09/17 08:11 1 TAB Lactobacillus Acidophilus (Floranex Tab) 4 tab TIDM PO 07/09/17 08:00 08/08/17 07:59 07/09/17 10:53 4 TAB Heparin Sodium (Porcine) (Heparin 100 Unit/ml 5ml Flush) 5 ml PRN PRN IV 07/08/17 17:30 08/07/17 17:29 07/09/17 10:54 5 ML Lorazepam 0.5 mg/ Syringe 0.5 ml @ 0.5 mls/min Q6H PRN IV 07/08/17 17:45 08/07/17 17:44 07/09/17 09:16 0.5 MLS/MIN Pantoprazole Sodium 40 mg/ Syringe 10 ml @ 5 mls/min DAILY@11 IV 07/09/17 11:00 08/08/17 10:59 07/09/17 10:53 5 MLS/MIN Miscellaneous (Iv Fluids Completed) 1 ea PRN PRN N/A 07/08/17 18:30 07/08/18 18:29 Heparin Sodium (Porcine) (Heparin Sq 5000 Unit/0.5ml) 5,000 unit Q12 SQ 07/08/17 21:00 08/07/17 20:59 07/09/17 09:22 5,000 UNIT Miconazole Nitrate (Desenex Powder) 1 appln PRN PRN EXT 07/09/17 10:15 08/08/17 10:14 Dexamethasone/ Nystatin/ Diphenhydramine HCl/Sucrose/ Microcrystalline Cellulose/Barcode Q6H PRN PO 07/09/17 10:30 08/08/17 10:29 Cevimeline HCl (Evoxac) 30 mg TID PO 07/09/17 14:00 08/08/17 13:59 UNV Objective Vital Signs Date Time Temp Pulse Resp B/P (MAP) Pulse Ox O2 Delivery O2 Flow Rate FiO2 07/09/17 07:42 36.8 75 16 106/73 (84) 97 Room Air 07/09/17 03:58 36.7 72 18 104/65 (78) 97 07/09/17 00:00 Room Air 07/08/17 23:25 36.5 75 16 104/66 (79) 90 Room Air 07/08/17 17:46 36.9 79 18 110/75 (87) 96 Room Air 07/08/17 15:30 36.9 78 16 117/81 Room Air Physical Exam General Appearance: no apparent distress, + thin Eyes: normal inspection, PERRL ENT: hearing grossly normal Neck: supple Respiratory/Chest: lungs clear, no respiratory distress, no accessory muscle use Cardiovascular: regular rate, rhythm, + systolic murmur Abdomen: normal bowel sounds, non tender, soft Extremities: no pedal edema, no calf tenderness Neurologic/Psychiatric: alert, normal mood/affect, oriented x 3 Skin: normal color, warm/dry, no rash Laboratory Results Last 24 Hours Test 07/08/17 19:36 07/09/17 05:27 Prothrombin Time 11.2 SECONDS Prothromb Time International Ratio 1.1 White Blood Count 3.81 K/uL Red Blood Count 3.37 M/uL Hemoglobin 10.2 g/dL Hematocrit 30.4 % Mean Corpuscular Volume 90.2 fL Mean Corpuscular Hemoglobin 30.3 pg Mean Corpuscular Hemoglobin Concent 33.6 g/dl Platelet Count 128 K/uL Mean Platelet Volume 9.3 fL Neutrophils (%) (Auto) 66.9 % Lymphocytes (%) (Auto) 20.2 % Monocytes (%) (Auto) 12.1 % Eosinophils (%) (Auto) 0.5 % Basophils (%) (Auto) 0.0 % Neutrophils # (Auto) 2.55 K/uL Lymphocytes # (Auto) 0.77 K/uL Monocytes # (Auto) 0.46 K/uL Eosinophils # (Auto) 0.02 K/uL Basophils # (Auto) 0.00 K/uL RDW Standard Deviation 52.1 fL RDW Coefficient of Variation 15.7 % Immature Granulocyte % (Auto) 0.3 % Immature Granulocyte # (Auto) 0.01 K/uL Sodium Level 137 mmol/L Potassium Level 3.6 mmol/L Chloride Level 105 mmol/L Carbon Dioxide Level 28 mmol/L Anion Gap 5.0 mmol/L Blood Urea Nitrogen 20 mg/dl Creatinine 0.95 mg/dl Est Creatinine Clear Calc Drug Dose 32.9 ml/min Estimated GFR () 68.9 Estimated GFR (Non- 59.4 BUN/Creatinine Ratio 21.1 Random Glucose 79 mg/dl Calcium Level 8.2 mg/dl Assessment and Plan This is a 72 yo F with PMHx of large B cell nonhodgkins lymphoma Dx June 2014 s /p chemotherapy(6 cycles of CHOP), currently being treated for metastatic NSCL adenocarcinoma with targeted chemotherapy (Tarceva), hypogammaglobulinemia, Sj gren syndrome, autoimmune hepatitis, mycobacterium avium complex s/p triple therapy with recurrence, CAD s/p CABG x 4 in Dec 2010, ischemic cardiomyopathy with anteroseptal WMA and EF of 40-45% in Mar 2017, HLD, HTN, osteoporosis, who presents as a direct admission with nausea, vomiting x 1 and unsteady gait x 2 days. Dehydration, intractable N/V possibly from chemotherapy (Tarceva)- IMPROVING: - Admit to med/surg - Zofran, Compazine and Ativan 0.5 mg IV for severe nausea - NSS at 100ml/hr x 1L for gentle hydrations with reduced EF - Head CT unremarkable - Check UA - PT/OT - Allow regular diet as pt can tolerate Oral mucositis secondary to chemotherapy: Magic mouthwash CAD s/p CABG x 4 in Dec 2010, Ischemic cardiomyopathy with anteroseptal WMA and EF of 40-45% in Mar 2017, HLD, HTN- STABLE: - Continue on Metoprolol 75 mg BID, ASA 81 mg daily, Imdur 60 mg daily, Ranexa 500 mg daily - Holding triamterene/hctz due to dehydration - Hold Zocor due to decreased appetite/nausea- resume at discharge Sjgren syndrome: - Continue Prednisone 20 mg to complete course for recent admission w/ SOB due to bronchitis - Prednisone 3 mg daily tomorrow - Continue Evoxac 30 mg TID Metastatic NSCLC: Follows w/ Dr. Stewart as an outpt- d/c Tarceva at this time as possible that this medication is causing adverse effects and f/u outpatient Large B cell nonhodgkins Lymphoma- in remission Autoimmune hepatitis- STABLE Hypogammaglobinemia: Continue weekly injection of Hizentra on Fridays Mycobacterium avium complex s/p triple therapy with recurrence: Follows with Dr. Jon as an outpatient, currently not under therapy Osteoporosis: Continue Multivitamin, ca + vit d, Evista 60 mg daily GI prophylaxis, GERD: Protonix daily DVT prophylaxis: Heparin SQ BID Code status: LEVEL I, FULL Disposition: From home, lives with - PT/OT and CM consulted- likely discharge in the next 1-2 days
[2017-07-09 12:29] VITALS: BMI 19.5
[2017-07-09 12:41] VITALS: Ht 147.3 cm; Wt 43.7 kg
[2017-07-09] MEDS ORDERED: CALCIUM CARBONATE 500 MG CHEWABLE PO PRN (13:00)
[2017-07-09] MEDS: CEVIMELINE 30 MG CAP PO SCH ×2 (13:51→21:02)
[2017-07-09 16:53] VITALS: BP 126/80; PULSE 74; TEMP 36.6; O2SAT 97
[2017-07-09] MEDS: RALOXIFENE 60 MG TAB PO SCH (21:04)
[2017-07-09 23:58] VITALS: BP 115/79; PULSE 72; TEMP 36.6; O2SAT 96
[2017-07-10] MEDS: ONDANSETRON INJ 2 MG/ML 2 ML VIAL IV PRN ×2 (02:57→10:37)
[2017-07-10] MEDS: BENZONATATE 100MG CAP PO PRN (03:48)
[2017-07-10] MEDS: PROCHLORPERAZINE MALEATE 10 MG TAB PO PRN (05:59)
[2017-07-10 08:20] VITALS: BP 112/79; PULSE 73; TEMP 36.7; O2SAT 95
[2017-07-10] MEDS: ALBUTEROL HFA 8 GM INHALER INH SCH (09:00)
[2017-07-10] MEDS: CALCIUM 600MG + VIT D 400 IU TAB PO SCH (09:01)
[2017-07-10] MEDS: CEVIMELINE 30 MG CAP PO SCH (09:02)
[2017-07-10] MEDS: ASPIRIN 81 MG ECTAB PO SCH (09:02)
[2017-07-10] MEDS: LACTOBACILLUS ACIDOPHILUS (FLORANEX) TAB PO SCH ×2 (09:03→11:57)
[2017-07-10] MEDS: METOPROLOL TARTRATE 50 MG TAB PO SCH (09:04)
[2017-07-10] MEDS: ISOSORBIDE MONONITRATE 60 MG TABCR PO SCH (09:04)
[2017-07-10] MEDS: RANOLAZINE 500 MG ER TAB PO SCH (09:06)
[2017-07-10] MEDS: HEPARIN SOD 5000 UNIT/0.5 ML CARP SQ SCH (09:09)
[2017-07-10 09:25] LABS: EOS % 0.6 %; EOS ABS # 0.03 K/uL (0-0.5); HEMATOCRIT 34.7 % (37-47); HEMOGLOBIN 11.4 g/dL (12.0-16.0); IG# 0.01 K/uL (0.00-0.02); LYMPH % 13.6 %; LYMPH ABS # 0.69 K/uL (1.2-3.4); MEAN CELL VOLUME 90.8 fL (80-100); MEAN CORPUSCULAR HEMOGLOBIN 29.8 pg (25-34); MEAN CORPUSCULAR HGB CONC 32.9 g/dl (32-36); MONO % 7.1 %; MONO ABS # 0.36 K/uL (0.11-0.59); NEUT % 78.5 %; NEUT ABS # 3.99 K/uL (1.4-6.5); PLATELET COUNT 161 K/uL (130-400); RED CELL DISTRIBUTION WIDTH CV 15.6 % (11.5-14.5); RED CELL DISTRIBUTION WIDTH SD 52.2 fL (36.4-46.3); WHITE BLOOD COUNT 5.08 K/uL (4.8-10.8)
[2017-07-10 09:51] LABS: CALCIUM 8.7 mg/dl (8.5-10.1); CREATININE 1.14 mg/dl (0.60-1.20)
--- NOTE | 2017-07-10 10:17 | Discharge Instructions ---
Discharge Instructions Date of Service Jul 10, 2017. Admission Reason for Admission: Dehydration,Severe N/V,Lung Ca Discharge Discharge Diagnosis / Problem: Nausea vomiting from target therapy Discharge Goals Goal(s): Decrease discomfort, Improve function, Increase independence, Improve disease control, Improve nutritional status, Learn about illness, Diagnostic testing, Therapeutic intervention, Prevent Disease Progression, Specific goals Activity Recommendations Activity Limitations: resume your previous activity . Instructions / Follow-Up Instructions / Follow-Up you have nausea, vomiting from recent targeted chemotherapy you ahve Oral mucositis secondary to chemotherapy: Magic mouthwash you have metastatic NSCL adenocarcinoma, need to follow up with oncologist - you need to follow up with your primary care physician in 1 week, - call your primary care physician OR go to local emergency room if has any fever/chill, chest pain, shortness of breathing, nausea/vomiting/abdominal pain , facial droop/slurry speech/local weakness, or if has any questions. - fall precaution - diet as instructed - you need to follow up with your subspecialist , call him to get instruction Current Hospital Diet Patient's current hospital diet: Regular Diet Discharge Diet Recommended Diet: AHA Diet (Heart Healthy) Pending Studies Studies pending at discharge: no Laboratory Results Lipid Panel Test 04/18/17 03:35 Range/Units Triglycerides Level 144 0-150 mg/dl Cholesterol Level 65 0-200 mg/dl HDL Cholesterol 12 mg/dl Cholesterol/HDL Ratio 5.4 LDL Cholesterol, Calculated 24 mg/dl Medical Emergencies . Who to Call and When: Medical Emergencies: If at any time you feel your situation is an emergency, please call 911 immediately. . Non-Emergent Contact Non-Emergency issues call your: Primary Care Provider, Oncologist . . "Provider Documentation" section prepared by Krunal Yepez. .
[2017-07-10] MEDS: PANTOprazole INJ 40 MG in SYRINGE 0 ML IV SCH (10:38)
[2017-07-10 11:58] VITALS: BP 112/79; PULSE 73; TEMP 36.7; O2SAT 95
== END 2017-07-10 13:20 | disposition home or self-care (01) ==
LOC: C.MS4W 15:11 → INTOOBSV 15:11
PROVIDERS: ADMIT Internal Medicine; ATTEND Hospitalist
DX: E86.0 Dehydration (principal); K12.31 Oral mucositis (ulcerative) due to antineoplastic therapy; C83.33 Diffuse large B-cell lymphoma, intra-abdominal lymph nodes; K75.4 Autoimmune hepatitis; I10 Essential (primary) hypertension; E03.9 Hypothyroidism, unspecified; D80.1 Nonfamilial hypogammaglobulinemia; I25.10 Atherosclerotic heart disease of native coronary artery without angina pectoris; E78.5 Hyperlipidemia, unspecified; C34.90 Malignant neoplasm of unspecified part of unspecified bronchus or lung; M35.00 Sjogren syndrome, unspecified; M81.0 Age-related osteoporosis without current pathological fracture; Z95.1 Presence of aortocoronary bypass graft; Z79.899 Other long term (current) drug therapy; Z79.82 Long term (current) use of aspirin; Z83.3 Family history of diabetes mellitus; Z82.49 Family history of ischemic heart disease and other diseases of the circulatory system; Z90.710 Acquired absence of both cervix and uterus; Z79.52 Long term (current) use of systemic steroids

== ENCOUNTER 2017-07-16 10:16 | Emergency (ER) | payer BC ==
[~2017-07-16] VITALS: Ht 147.3 cm; Wt 41.0 kg
[~2017-07-16 10:16] MED LIST changes: -ALBU18002 INH; -ASPI-435 PO; -CEVI1CAP PO; -EPP3/2 IM; -HYZENTRA INJ; -ISOS60TA2 PO; -METO50TA16 PO; -MISCCAP80 PO; -PRD20 PO; -RALO1TAB2 PO; -RESV250C PO
[2017-07-16 10:18] VITALS: TEMP 36.9; Ht 147.3 cm; Wt 41.0 kg
[2017-07-16] MEDS ORDERED: OPTIRAY 320 IV PRN (11:00)
--- NOTE | 2017-07-16 11:02 | DIAGNOSTIC IMAGING REPORT ---
CHEST ONE VIEW PORTABLE CLINICAL HISTORY: 72 years-old Female presenting with CHEST PAIN. TECHNIQUE: Portable upright AP view of the chest was obtained. COMPARISON: 07/02/2017. FINDINGS: The patient is NAURUAN rotated. Left subclavian Mediport terminates in the mid SVC. Mediastinal surgical clips and median sternotomy wires unchanged. Atherosclerosis and tortuosity of the thoracic aorta. Cardiac silhouette normal in size. Lungs hyperinflated. Ill-defined peripheral opacities with a basilar predominance. Ill-defined opacity in the right upper lung consistent with known mass. Mild scoliotic curvature of the spine with degenerative change. Cholecystectomy clips noted. IMPRESSION: 1. Redemonstration of the known right upper lobe mass. No new focal infiltrate. 2. Chronic lung findings are unchanged. Electronically signed by: Vipul Calero M.D. 07/16/2017 11:01 AM Dictated Date/Time: 07/16/2017 10:58 AM
[2017-07-16 11:14] VITALS: O2SAT 97
[2017-07-16 11:25] LABS: HEMATOCRIT 34.4 % (37-47); HEMOGLOBIN 11.5 g/dL (12.0-16.0); MEAN CELL VOLUME 88.9 fL (80-100); MEAN CORPUSCULAR HEMOGLOBIN 29.7 pg (25-34); MEAN CORPUSCULAR HGB CONC 33.4 g/dl (32-36); MEAN PLATELET VOLUME 9.5 fL (7.4-10.4); PLATELET COUNT 186 K/uL (130-400); RED CELL DISTRIBUTION WIDTH CV 15.6 % (11.5-14.5); RED CELL DISTRIBUTION WIDTH SD 50.2 fL (36.4-46.3); WHITE BLOOD COUNT 7.94 K/uL (4.8-10.8)
[2017-07-16] MEDS ORDERED: ISOS60TA2 PO (11:46)
[2017-07-16] MEDS ORDERED: ALBU18002 INH (11:46)
[2017-07-16] MEDS ORDERED: MISCCAP80 PO (11:46)
[2017-07-16] MEDS ORDERED: METO50TA16 PO (11:46)
[2017-07-16 11:47] LABS: ALBUMIN 2.9 gm/dl (3.4-5.0); CALCIUM 8.8 mg/dl (8.5-10.1); CREATININE 1.02 mg/dl (0.60-1.20); POTASSIUM 4.4 mmol/L (3.5-5.1); TOTAL PROTEIN 6.7 gm/dl (6.4-8.2)
[2017-07-16 11:51] LABS: BASO % 0.1 %; BASO ABS # 0.01 K/uL (0-0.2); EOS % 0.3 %; EOS ABS # 0.02 K/uL (0-0.5); IG# 0.02 K/uL (0.00-0.02); LYMPH % 11.6 %; LYMPH ABS # 0.92 K/uL (1.2-3.4); MONO % 11.6 %; MONO ABS # 0.92 K/uL (0.11-0.59); NEUT % 76.1 %; NEUT ABS # 6.05 K/uL (1.4-6.5)
[2017-07-16] MEDS ORDERED: POTA10TA79 PO (11:54)
[2017-07-16 12:15] LABS: INFLUENZA A PCR Neg for Influ A (NEG); INFLUENZA B PCR Neg for Influ B (NEG)
[2017-07-16] MEDS ORDERED: CEVI1CAP PO (12:17)
[2017-07-16] MEDS ORDERED: SODIUM CHLORIDE 0.9% 1000ML 1,000 ML IV STA (12:54)
--- NOTE | 2017-07-16 12:54 | DIAGNOSTIC IMAGING REPORT ---
CHEST CTA for PULMONARY ARTERIES CT DOSE: 229.36 mGycm HISTORY: Short of breath. Lung cancer. TECHNIQUE: Multiaxial CT images of the chest were performed following the intravenous administration of contrast to evaluate the pulmonary arteries. Maximal intensity projection images were also obtained. A dose lowering technique was utilized adhering to the principles of ALARA. COMPARISON STUDY: Chest CTA 07/02/2017. FINDINGS: No evidence for an aortic dissection or pulmonary embolus. There is a 1.5 cm hypodense lesion within the right hepatic lobe, unchanged. This favors a cyst.. Cholecystectomy. The spleen and adrenal glands are unremarkable. No mediastinal or hilar lymphadenopathy. No pleural or pericardial effusions. Poststernotomy changes. Old, healed left-sided rib fractures. No pneumothorax. Mild bronchiectasis. The central airways are patent. Right upper lobe spiculated mass is similar in size compared to the prior study. Multiple scattered pulmonary nodules and small focal areas of bibasilar consolidation have slightly progressed. The majority of the pulmonary nodules demonstrate a tree-in-bud nodular pattern and demonstrate basilar predominance. Therefore, this favors chronic inflammatory/infectious change. IMPRESSION: 1. No evidence for pulmonary embolus. 2. Slight progression of the basilar predominant nodular and focal airspace opacities. This favors chronic inflammatory/infectious change rather than a neoplastic process. 3. No change in the spiculated right upper lobe mass. Electronically signed by: Bucky Mclain M.D. 07/16/2017 12:53 PM Dictated Date/Time: 07/16/2017 12:39 PM
[2017-07-16] MEDS ORDERED: ASPI-435 PO (13:35)
[2017-07-16] MEDS ORDERED: EPP3/2 IM (14:08)
[2017-07-16] MEDS ORDERED: RALO1TAB2 PO (14:08)
[2017-07-16] MEDS ORDERED: ALBUT/IPRATROP 3MG/0.5MG NEB 3 ML VIAL INH STA (14:21)
--- NOTE | 2017-07-16 16:03 | EMERGENCY ROOM VISIT NOTE ---
History Report prepared by Cornelius: Akbar Smith Under the Supervision of: Dr. Woody Wilkinson M.D. First contact with patient: 10:34 Chief Complaint: SHORTNESS OF BREATH Stated Complaint: OXYGEN LEVEL LOW Nursing Triage Summary: Patient states "My doctor sent me over because I am really short of breath. Last week, I was admitted and discharged from the hospital." Denies chest pain , n/v/d. History of Present Illness The patient is a 72 year old female who presents to the Emergency Room with complaints of worsening shortness of breath beginning this week. She has a history of stage four lung cancer (adenocarcinoma). She began treatment about two months ago. The patient's oxygen saturation has been in the 80's today on room air, but increases to the low 90's with rest. Her shortness of breath is worsened with laying flat. She denies fevers, chills, cough, dizziness, urinary symptoms, nausea, or vomiting. The patient was admitted to the hospital last week, and was discharged without supplemental oxygen for home. She had a chest CT at this time which did not show PE. Source of History: patient Onset: This week Quality: other (shortness of breath) Timing: worsening Modifying Factors (Worsening): other (laying flat) Associated Symptoms: No fevers, No chills, No cough, No nausea, No vomiting , No urinary symptoms Note: Patient denies dizziness. Review of Systems See HPI for pertinent positives and negatives. A total of ten systems were reviewed and were otherwise negative. 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 (14) Non-small cell lung cancer (NSCLC) (15) NSTEMI (non-ST elevated myocardial infarction) (16) Osteoporosis Nec (17) Pneumonitis (18) Pulmonary infection (19) Sjogren's disease (20) Syncope (21) Unsteady gait Surgical Problems: (1) H/O: hysterectomy Family History Diabetes mellitus Hypertension Social History Smoking Status: Never Smoker Alcohol Use: none Drug Use: none Marital Status: Housing Status: lives with family Occupation Status: unemployed Current/Historical Medications Scheduled Albuterol Sulfate (Proair Respiclick), 2 PUFFS INH BID Aspirin (Aspirin 81), 81 MG PO QAM Calcium Carbonate-Cholecalcife (Caltrate 600+D), 1 TAB PO BID Cevimeline Hcl (Cevimeline Hcl), 30 MG PO TID Erlotinib (Tarceva), 100 MG PO DIRECTED Immune Globulin (Human) Subcut (Hizentra), 8 GM INJ WK Isosorbide Mononitrate (Imdur Ext Rel), 60 MG PO QAM Magnesium (Magnesium 250 mg), 1 TAB PO QAM Metoprolol Tartrate (Lopressor) (Lopressor), 75 MG PO BID Multivitamins/Minerals (Mvi With Minerals), 1 TAB PO QPM Ondansetron (Ondansetron HCl), 4 MG SL Q6H Pantoprazole (Pantoprazole Sodium), 40 MG PO BID Potassium Chloride Microencaps (Potassium Chloride Cr), 10 MEQ PO TID Prednisone (Prednisone), 3 MG PO QAM Probiotic Product (Probiotic), 1 TAB PO QPM Raloxifene HCl (Raloxifene Hydrochloride), 60 MG PO QPM Ranolazine (Ranexa), 500 MG PO Q12 Simvastatin (Zocor), 40 MG PO HS Triamterene/Hctz (Triamterene/Hctz 37.5-25MG), 1 TAB PO DAILY Scheduled PRN Benzonatate (Tessalon Perles), 100 MG PO TID PRN for Cough Epinephrine (Epipen), 0.3 MG IM UD PRN for ALLERGIC REACTION Hydrocodone/Homatropine (Hydromet 5-1.5 mg/5Ml), 5 ML PO Q4H PRN for Cough Nitroglycerin (Nitrostat), 0.4 MG UT UD PRN for Chest Pain Prochlorperazine Maleate (Compazine), 10 MG PO for Nausea or Vomiting Tramadol (Ultram), 50 MG PO Q4H PRN for Pain Allergies Coded Allergies: No Known Allergies (Unverified , 07/02/17) Physical Exam Vital Signs Date Time Temp Pulse Resp B/P (MAP) Pulse Ox O2 Delivery O2 Flow Rate FiO2 07/16/17 16:15 77 16 109/79 97 07/16/17 13:36 77 21 131/80 97 Room Air 07/16/17 13:34 32 95 Room Air 07/16/17 12:04 68 18 100/60 96 Room Air 07/16/17 11:24 81 07/16/17 11:14 97 Room Air 07/16/17 11:14 97 Room Air 07/16/17 10:27 97 07/16/17 10:18 36.9 79 18 101/68 95 Room Air Physical Exam GENERAL: Awake, alert, mildly dyspneic-appearing, fatigued, in no distress HENT: Normocephalic, atraumatic. Oropharynx unremarkable other than dry mucous membranes. EYES: Normal conjunctiva. Sclera non-icteric. NECK: Supple. No nuchal rigidity. FROM. No JVD. RESPIRATORY: Clear to auscultation. CARDIAC: Regular rate, normal rhythm. Extremities warm and well perfused. Pulses equal. ABDOMEN: Soft, non-distended. No tenderness to palpation. No rebound or guarding. No masses. RECTAL: Deferred. MUSCULOSKELETAL: Chest examination reveals no tenderness. The back is symmetrical on inspection without obvious abnormality. There is no CVA tenderness to palpation. No joint edema. LOWER EXTREMITIES: Calves are equal size bilaterally and non-tender. No edema. No discoloration. NEURO: Normal sensorium. No sensory or motor deficits noted. SKIN: No rash or jaundice noted. Medical Decision & Procedures ER Provider Diagnostic Interpretation: Radiology results as stated below per my review and radiologist interpretation: CHEST CTA for PULMONARY ARTERIES FINDINGS: No evidence for an aortic dissection or pulmonary embolus. There is a 1.5 cm hypodense lesion within the right hepatic lobe, unchanged. This favors a cyst.. Cholecystectomy. The spleen and adrenal glands are unremarkable. No mediastinal or hilar lymphadenopathy. No pleural or pericardial effusions. Poststernotomy changes. Old, healed left-sided rib fractures. No pneumothorax. Mild bronchiectasis. The central airways are patent. Right upper lobe spiculated mass is similar in size compared to the prior study. Multiple scattered pulmonary nodules and small focal areas of bibasilar consolidation have slightly progressed. The majority of the pulmonary nodules demonstrate a tree-in-bud nodular pattern and demonstrate basilar predominance. Therefore, this favors chronic inflammatory/infectious change. IMPRESSION: 1. No evidence for pulmonary embolus. 2. Slight progression of the basilar predominant nodular and focal airspace opacities. This favors chronic inflammatory/infectious change rather than a neoplastic process. 3. No change in the spiculated right upper lobe mass. Electronically signed by: Bucky Mclain M.D. 07/16/2017 12:53 PM CHEST ONE VIEW PORTABLE FINDINGS: The patient is [place] rotated. Left subclavian Mediport terminates in the mid SVC. Mediastinal surgical clips and median sternotomy wires unchanged. Atherosclerosis and tortuosity of the thoracic aorta. Cardiac silhouette normal in size. Lungs hyperinflated. Ill-defined peripheral opacities with a basilar predominance. Ill-defined opacity in the right upper lung consistent with known mass. Mild scoliotic curvature of the spine with degenerative change. Cholecystectomy clips noted. IMPRESSION: 1. Redemonstration of the known right upper lobe mass. No new focal infiltrate. 2. Chronic lung findings are unchanged. Electronically signed by: Vipul Calero M.D. 07/16/2017 11:01 AM Laboratory Results 07/16/17 11:11 Red Blood Count 3.87, Mean Corpuscular Volume 88.9, Mean Corpuscular Hemoglobin 29.7, Mean Corpuscular Hemoglobin Concent 33.4, Mean Platelet Volume 9.5, Neutrophils (%) (Auto) 76.1, Lymphocytes (%) (Auto) 11.6, Monocytes (%) (Auto) 11.6, Eosinophils (%) (Auto) 0.3, Basophils (%) (Auto) 0.1, Neutrophils # (Auto ) 6.05, Lymphocytes # (Auto) 0.92, Monocytes # (Auto) 0.92, Eosinophils # (Auto ) 0.02, Basophils # (Auto) 0.01 07/16/17 11:11 Test 07/16/17 10:55 07/16/17 11:11 Influenza Type A (RT-PCR) Neg for Influ A (NEG) Influenza Type B (RT-PCR) Neg for Influ B (NEG) White Blood Count 7.94 K/uL (4.8-10.8) Red Blood Count 3.87 M/uL (4.2-5.4) Hemoglobin 11.5 g/dL (12.0-16.0) Hematocrit 34.4 % (37-47) Mean Corpuscular Volume 88.9 fL (80-100) Mean Corpuscular Hemoglobin 29.7 pg (25-34) Mean Corpuscular Hemoglobin Concent 33.4 g/dl (32-36) Platelet Count 186 K/uL (130-400) Mean Platelet Volume 9.5 fL (7.4-10.4) Neutrophils (%) (Auto) 76.1 % Lymphocytes (%) (Auto) 11.6 % Monocytes (%) (Auto) 11.6 % Eosinophils (%) (Auto) 0.3 % Basophils (%) (Auto) 0.1 % Neutrophils # (Auto) 6.05 K/uL (1.4-6.5) Lymphocytes # (Auto) 0.92 K/uL (1.2-3.4) Monocytes # (Auto) 0.92 K/uL (0.11-0.59) Eosinophils # (Auto) 0.02 K/uL (0-0.5) Basophils # (Auto) 0.01 K/uL (0-0.2) RDW Standard Deviation 50.2 fL (36.4-46.3) RDW Coefficient of Variation 15.6 % (11.5-14.5) Immature Granulocyte % (Auto) 0.3 % Immature Granulocyte # (Auto) 0.02 K/uL (0.00-0.02) Large Platelets 1+ Venous Blood pH 7.44 (7.36-7.41) Venous Blood Partial Pressure CO2 44 mmHg (38.0-50.0) Venous Blood Partial Pressure O2 35 mmHg Venous Blood HCO3 29 mmol/L Venous Blood Oxygen Saturation 65.0 % Venous Blood Base Excess 4.3 mEq/L Anion Gap 7.0 mmol/L (3-11) Est Creatinine Clear Calc Drug Dose 31.7 ml/min Estimated GFR () 63.2 Estimated GFR (Non- 54.5 BUN/Creatinine Ratio 27.3 (10-20) Calcium Level 8.8 mg/dl (8.5-10.1) Magnesium Level 2.4 mg/dl (1.8-2.4) Total Bilirubin 0.5 mg/dl (0.2-1) Direct Bilirubin 0.1 mg/dl (0-0.2) Aspartate Amino Transf (AST/SGOT) 30 U/L (15-37) Alanine Aminotransferase (ALT/SGPT) 26 U/L (12-78) Alkaline Phosphatase 54 U/L (45-117) Pro-B-Type Natriuretic Peptide 393 pg/ml (0-900) Total Protein 6.7 gm/dl (6.4-8.2) Albumin 2.9 gm/dl (3.4-5.0) Lipase 178 U/L (73-393) Laboratory results reviewed by me Medications Administered Medications (Trade) Dose Ordered Sig/Jimmy Route Start Time Stop Time Status Last Admin Dose Admin Sodium Chloride 1,000 ml @ 999 mls/hr Q1H1M STAT IV 07/16/17 12:54 07/16/17 13:54 DC 07/16/17 13:37 999 MLS/HR Albuterol/ Ipratropium (Duoneb) 3 ml NOW STAT INH 07/16/17 14:21 07/16/17 14:22 DC 07/16/17 15:02 3 ML Heparin Sodium (Porcine) (Heparin 100 Unit/ml 5ml Flush) 5 ml STK-MED ONCE .ROUTE 07/16/17 16:07 07/16/17 16:08 DC 07/16/17 16:09 5 ML ECG Per My Interpretation Indication: SOB/dyspnea Rate (beats per minute): 80 Rhythm: normal sinus Findings: RBBB (incomplete), T-wave inversion (Anterior), other (Normal axis. No ST elevations. ) Comparison ECG Date: July 03, 2017 Change: no significant change ED Course 1037: The patient was evaluated in room C6. A complete history and physical exam was performed. 1528: I spoke with the case resolution specialist regarding the patient. 1533: I checked in on the patient. She feels much better and would like to go home. 1615: I reevaluated the patient. Discussed results and discharge instructions: she verbalized understanding and agreement. The patient is ready for discharge. Medical Decision I reviewed the patient's past medical history, medications, and the nursing notes as described above. Differential diagnosis: Etiologies such as infections, reactive airway disease, pneumonia, pneumothorax , COPD, CHF, cardiac ischemia, pulmonary embolism, musculoskeletal, gastrointestinal, as well as others were entertained. The patient is a 72-year-old woman with a past medical history of stage IV lung adenocarcinoma as well as a history of Sjogren's and lymphoma who is currently on on a break from treatment with Tarceva presented emergency department with worsening shortness of breath and hypoxia with oxygen saturation in the 80s which improved to the 90s at rest. Case was discussed with the patient's oncologist, Dr. Stewart, who saw the patient earlier today and referred the patient to the ED. Did have a recent CT PE study that was negative last week during an admission. On arrival the patient is fatigued appearing and dyspneic but no acute distress, afebrile stable vital signs. EKG unremarkable. CT PE was negative for PE however showed some mild worsening of previously observed inflammatory changes. Labs unremarkable. Case was further discussed with Dr. estrada, the patient's snuff drier, who reviewed the patient's imaging and agreed that given that the patient is not exhibiting hypoxia at this time unclear cause of the patient's dyspnea. Given no wheezing will defer steroids this time. If the patient is feeling clinically improved agrees that can follow- up outpatient, however, agrees that if not could consider rehab. Patient subsequently was treated with IV fluid hydration and given a neb and felt improvement. Subsequently 6 minute two-step was improved and patient did not report any significant dyspnea or desaturation. Thus, given reassuring workup and patient's clinical improvement, patient is preferring discharge and has scheduled appointment already tomorrow with her PCP Dr. Villalpando. I did speak with Dr. Villalpando on the phone to update him on the patient's visit today. He agrees with plan. Patient will additionally call Dr. Estrada's office to arrange for an upcoming appointment. Findings and plan for follow-up reviewed with patient. Patient agreeable and d/c'd per discharge instructions. Medication Reconcilliation Current Medication List: was personally reviewed by me Blood Pressure Screening Patient's blood pressure: Normal blood pressure Blood pressure disposition: Did not require urgent referral Consults Time Called: 1601 Consulting Physician: Dr. Villalpando - [facility] Returned Call: [phone] I discussed the patient with Dr. Villalpando. He will see the patient tomorrow for her scheduled appointment. Additional Consults: Time Called: 1304 Consulted Physician: Dr. Estrada Pulmonology Returned Call: [phone] Additional Comments: I discussed the patient with Dr. Estrada. He states that the patient currently does not qualify for home oxygen. He does not believe the patient's CT findings to be significant, especially given the patient doesn't have wheezing clinically. Dr. Estrada recommends another prolonged ambulatory trial. He feels the patient may benefit from rehab. He will defer disposition decision to the ED. Impression Primary Impression: Shortness of breath on exertion Scribe Attestation The scribe's documentation has been prepared under my direction and personally reviewed by me in its entirety. I confirm that the note above accurately reflects all work, treatment, procedures, and medical decision making performed by me. Departure Information Dispostion Home / Self-Care Referrals Evin Tinajero M.D. (PCP) Kade Stewart D.O. Martínez Estrada, DO Patient Instructions ED Dyspnea Shortness of Breath, [facility] Additional Instructions Please follow up with your primary care physician tomorrow as scheduled for re- evaluation. You should also contact your snuff drier, Dr. Estrada, tomorrow to arrange for a follow-up appointment within the next week. The cause of your symptoms is unclear at this time. Otherwise, your exam, EKG, chest xray, lab results, and CT scan of your chest did not show signs of an emergent condition at this time. Your oxygen level did not decrease significantly on multiple ambulatory trials and and so you did not qualify for home oxygen at this time. Continue your current medications including your albuterol inhaler every 4 hours for the next 48 hours and then thereafter as needed. Drink plenty of fluids to ensure hydration. Return to the emergency department for worsening symptoms as described in the accompanying instructions.
[2017-07-16 16:15] VITALS: BP 109/79; PULSE 77; O2SAT 97
[2017-07-16] MEDS ORDERED: IMMU4INJ INJ (17:18)
[2017-07-16] MEDS ORDERED: TRIATAB3 PO (17:18)
== END 2017-07-16 16:30 | disposition home or self-care (01) ==
LOC: C.EDB 10:17 → C.EDC 16:30
DX: R06.02 Shortness of breath (principal); I25.10 Atherosclerotic heart disease of native coronary artery without angina pectoris; E03.9 Hypothyroidism, unspecified; I21.4 Non-ST elevation (NSTEMI) myocardial infarction; M35.00 Sjogren syndrome, unspecified; Z83.3 Family history of diabetes mellitus; Z82.49 Family history of ischemic heart disease and other diseases of the circulatory system; Z79.82 Long term (current) use of aspirin

== ENCOUNTER 2017-08-10 12:31 | Observation (INO) | payer BC ==
[~2017-08-10] VITALS: Ht 147.3 cm; Wt 43.4 kg
[~2017-08-10 12:31] MED LIST changes: +ALBU18002 INH; +ASPI-435 PO; +CEVI1CAP PO; +EPP3/2 IM; +IMMU4INJ INJ; +ISOS60TA2 PO; +METO50TA16 PO; +MISCCAP80 PO; +POTA10TA79 PO; -POTA20TA16 PO; +RALO1TAB2 PO; +TRIATAB3 PO
[2017-08-10] MEDS ORDERED: [UNRECOGNIZED DRUG - CODE] PO (12:57)
[2017-08-10] MEDS ORDERED: ERLO25TA PO (12:58)
[2017-08-10] MEDS ORDERED: LORAZEPAM 2 MG/ML 1 ML VIAL IV STA (13:16)
[2017-08-10] MEDS ORDERED: SODIUM CHLORIDE 0.9% 1000ML 1,000 ML IV ONE (13:30)
[2017-08-10] MEDS ORDERED: OPTIRAY 320 IV PRN (13:30)
--- NOTE | 2017-08-10 13:56 | EMERGENCY ROOM VISIT NOTE ---
ED Visit Note First contact with patient: 13:06 I have seen and examined this patient in conjunction with Dennis Bowser and agree with the treatment plan. Problem List Medical Problems: (1) ASHD (arteriosclerotic heart disease) Status: Resolved (2) Autoimmune hepatitis Status: Chronic (3) B-cell lymphoma of solid organ Status: Chronic (4) BRONCOPNEUMONIA ORG NOS Status: Resolved (5) Coronary artery bypass grafts x 4 Status: Resolved (6) Coronary artery disease Status: Chronic (7) Hypothyroidism Nos Status: Chronic (8) Immunodeficiency Status: Chronic (9) Kidney stones Status: Resolved (10) Lymphedema Status: Chronic (11) Mycobacterium avium-intracellulare infection Status: Chronic (12) Osteoporosis Nec Status: Chronic (13) Pulmonary infection Status: Resolved (14) Sjogren's disease Status: Chronic Surgical Problems: (1) H/O: hysterectomy Status: Resolved Current/Historical Medications Scheduled Albuterol Sulfate (Proair Respiclick), 2 PUFFS INH QID Aspirin (Aspirin 81), 81 MG PO QAM Calcium Carbonate-Cholecalcife (Caltrate 600+D), 1 TAB PO BID Cevimeline Hcl (Cevimeline Hcl), 30 MG PO TID Erlotinib (Tarceva), 50 MG PO QPM Immune Globulin (Human) Subcut (Hizentra), 8 GM INJ WK Isosorbide Mononitrate (Imdur Ext Rel), 60 MG PO QAM Magnesium (Magnesium 250 mg), 1 TAB PO QAM Metoprolol Tartrate (Lopressor) (Lopressor), 75 MG PO BID Multivitamins/Minerals (Mvi With Minerals), 1 TAB PO QPM Ondansetron (Ondansetron HCl), 4 MG SL Q6H Potassium Chloride Microencaps (Potassium Chloride Cr), 10 MEQ PO TID Prednisone (Prednisone), 3 MG PO QAM Probiotic Product (Probiotic), 1 TAB PO QPM Raloxifene HCl (Raloxifene Hydrochloride), 60 MG PO QPM Ranolazine (Ranexa), 500 MG PO Q12 Simvastatin (Zocor), 40 MG PO HS Triamterene/Hctz (Triamterene/Hctz 37.5-25MG), 1 TAB PO DAILY Scheduled PRN Epinephrine (Epipen), 0.3 MG IM UD PRN for ALLERGIC REACTION Nitroglycerin (Nitrostat), 0.4 MG UT UD PRN for Chest Pain Prochlorperazine Maleate (Compazine), 10 MG PO for Nausea or Vomiting Tramadol (Ultram), 50 MG PO Q4H PRN for Pain Allergies Coded Allergies: No Known Allergies (Unverified , 07/02/17) Vital Signs Date Time Temp Pulse Resp B/P (MAP) Pulse Ox O2 Delivery O2 Flow Rate FiO2 08/10/17 12:53 74 08/10/17 12:44 36.6 74 16 116/63 94 Room Air 08/10/17 12:44 94 Room Air Laboratory Results Test 08/10/17 13:53 Departure Information Referrals Orlando Tian M.D. (PCP) Patient Instructions [facility]
[2017-08-10] MEDS: MoRPHine SULFATE 4 MG/ML 1 ML CARP\\VIAL IV PRN ×4 (14:00→17:29)
--- NOTE | 2017-08-10 14:04 | DIAGNOSTIC IMAGING REPORT ---
L HAND MIN 3 VIEWS ROUTINE CLINICAL HISTORY: Fall/syncope. Left hand injury. Left 3rd digit swelling trauma. Pain. COMPARISON: None. DISCUSSION: Considerable degenerative change throughout the entire hand and wrist region. Small cortical evulsion dorsal aspect base distal phalanx third finger. Considerable degenerative change of the remaining interphalangeal joints. Generalized osteopenia. Severe degenerative change first carpometacarpal joint. IMPRESSION: 1. Generalized degenerative change and osteoporosis throughout the entire hand and wrist. 2. Small cortical evulsion dorsal aspect base distal phalanx third finger. The above report was generated using voice recognition software. It may contain grammatical, syntax or spelling errors. Electronically signed by: David Nunez M.D. 08/10/2017 2:02 PM Dictated Date/Time: 08/10/2017 2:00 PM
[2017-08-10 14:05] LABS: EOS % 0.2 %; EOS ABS # 0.02 K/uL (0-0.5); HEMATOCRIT 32.6 % (37-47); HEMOGLOBIN 10.8 g/dL (12.0-16.0); IG# 0.04 K/uL (0.00-0.02); LYMPH % 8.8 %; MEAN CELL VOLUME 88.8 fL (80-100); MEAN CORPUSCULAR HEMOGLOBIN 29.4 pg (25-34); MEAN CORPUSCULAR HGB CONC 33.1 g/dl (32-36); MEAN PLATELET VOLUME 9.7 fL (7.4-10.4); MONO % 7.8 %; MONO ABS # 0.79 K/uL (0.11-0.59); NEUT % 82.8 %; NEUT ABS # 8.43 K/uL (1.4-6.5); PLATELET COUNT 171 K/uL (130-400); RED CELL DISTRIBUTION WIDTH CV 15.4 % (11.5-14.5); RED CELL DISTRIBUTION WIDTH SD 49.7 fL (36.4-46.3); WHITE BLOOD COUNT 10.18 K/uL (4.8-10.8)
[2017-08-10 14:14] LABS: INR 0.9 (0.9-1.1); PTT PATIENT 23.1 SECONDS (21.0-31.0)
[2017-08-10 14:22] LABS: ALBUMIN 3.1 gm/dl (3.4-5.0); CALCIUM 8.5 mg/dl (8.5-10.1); CREATININE 0.95 mg/dl (0.60-1.20); POTASSIUM 4.2 mmol/L (3.5-5.1)
[2017-08-10 14:30] LABS: ISTAT CREATININE 0.9 mg/dl (0.6-1.3); ISTAT IONIZED CALCIUM 1.09 mmol/l (1.12-1.32); ISTAT POTASSIUM 4.3 mEq/L (3.3-5.0)
[2017-08-10 14:34] LABS: TOTAL PROTEIN 6.9 gm/dl (6.4-8.2)
[2017-08-10] MEDS ORDERED: MoRPHine SULFATE 2 MG/ML CARP IV STA (14:50)
[2017-08-10] MEDS ORDERED: ONDANSETRON INJ 2 MG/ML 2 ML VIAL IV STA (14:50)
--- NOTE | 2017-08-10 14:58 | DIAGNOSTIC IMAGING REPORT ---
HEAD CT NONCONTRAST CT DOSE: HISTORY: Syncope. Fall. head injury. CA hx. TECHNIQUE: Multiaxial CT images of the head were performed without the use of intravenous contrast. Automated exposure control was utilized for this study. A dose lowering technique was utilized adhering to the principles of ALARA. Comparison: Head CT 07/08/2017. Findings: The paranasal sinuses and mastoid air cells are clear. The calvarium and skull base are intact. The ventricles and sulci are within normal limits. There is no mass, hematoma, midline shift, or acute infarct. Mild right supraorbital soft tissue swelling. Impression: No acute intracranial abnormality. Mild right supraorbital soft tissue swelling. Electronically signed by: Bucky Mclain M.D. 08/10/2017 2:56 PM Dictated Date/Time: 08/10/2017 2:54 PM
--- NOTE | 2017-08-10 14:58 | DIAGNOSTIC IMAGING REPORT ---
FACIAL BONES-MXILLOFAC WITHOUT CT DOSE: 1199.36 mGy.cm HISTORY: Trauma. Pain. Syncope fall. TECHNIQUE: Multiaxial CT images of the maxillofacial region were performed and reformatted in the coronal plane without the use of contrast. A dose lowering technique was utilized adhering to the principles of ALARA. COMPARISON: None. FINDINGS: The visualized cervical spine, skull base, pterygoid plates, nasal bones, lamina papyracea, orbital floors, mandible, and zygomatic arches are intact. No fractures. The orbits are unremarkable. IMPRESSION: No fractures within the maxillofacial region. The above report was generated using voice recognition software. It may contain grammatical, syntax or spelling errors. Electronically signed by: David Nunez M.D. 08/10/2017 2:57 PM Dictated Date/Time: 08/10/2017 2:54 PM
--- NOTE | 2017-08-10 14:58 | DIAGNOSTIC IMAGING REPORT ---
CT ANGIOGRAM OF THE CHEST CLINICAL HISTORY: Right-sided chest pain. Syncope. History of lung carcinoma. Possible pulmonary embolism. COMPARISON STUDY: 07/16/2017 TECHNIQUE: Following the IV administration of 119 mL of [id number]-[id number], CT angiogram of the thorax was performed from the thoracic inlet to the lung bases utilizing the pulmonary embolus protocol. Images are reviewed in the axial, sagittal, and coronal planes. IV contrast was administered without complication. MIP imaging was performed. A dose lowering technique was utilized adhering to the principles of ALARA. CT DOSE: FINDINGS: No pathologically enlarged axillary mediastinal or hilar lymph nodes were visualized. There was no evidence of thoracic aortic dilatation. There were no pulmonary artery filling defects to indicate acute pulmonary embolism. No pleural effusions are visualized. There is a stable 27 mm right upper lobe mass. There are mild bronchiectatic changes. There is developing right lower lobe atelectasis/consolidation. There are multiple scattered peripheral nodular opacities most pronounced within the right middle lobe and right lower lobe. The distribution favors an infectious etiology, although metastatic disease cannot be excluded with certainty. IMPRESSION: 1. Stable 27 mm right upper lobe mass 2. No evidence of acute pulmonary embolism 3. Slight progression in the multiple scattered peripheral nodular opacities. Distribution again favors a chronic infectious/inflammatory process over neoplasm 4. Developing dependent area of right lower lobe atelectasis/consolidation Electronically signed by: Jose Jackson M.D. 08/10/2017 2:57 PM Dictated Date/Time: 08/10/2017 2:50 PM
--- NOTE | 2017-08-10 15:11 | DIAGNOSTIC IMAGING REPORT ---
ABD/PELVIS IV CONTRAST ONLY CLINICAL HISTORY: 72 years-old Female presenting with Syncope and fall. Right side abd pain/ruq bruising, history of non-small cell lung cancer. TECHNIQUE: Multidetector CT of the abdomen and pelvis was performed after the administration of intravenous contrast. IV contrast: 119 mL of Optiray 320. A dose lowering technique was used consistent with the principles of ALARA (as low as reasonably achievable). COMPARISON: 05/27/2017. CT DOSE (mGy.cm): The estimated cumulative dose is 1199.[address]. FINDINGS: Post Adoption Coordinator topogram: Median sternotomy wires noted. Surgical clips project over the epigastrium. Lung bases: Interval worsening of multifocal peripheral predominant nodular opacities. Bronchiectasis and multifocal subsegmental bronchial debris evident. Consolidative changes dependently in the right lower lobe surrounded previously noted bleb. Multichamber enlargement of the heart. Coronary artery calcification. No pericardial or pleural effusion. Liver: Normal morphology. Redemonstration of a multilobular hypodense lesion in the right hepatic lobe, unchanged from prior, indeterminate but possibly hepatic cyst. Hypoenhancing region along the posterior right hepatic lobe is unchanged and may represent another hepatic cyst. Patent hepatic vasculature. Biliary: Mild biliary ductal prominence likely a reservoir effect in the post cholecystectomy state. Gallbladder surgically absent. Pancreas: Moderate pancreatic ductal dilatation. Pancreas divisum. Parenchyma normal. Spleen: Normal. Adrenal glands: Normal. Kidneys and ureters: Numerous subcentimeter hypodensities in the kidneys, many too small to characterize but likely simple cysts. Persistent mild urothelial thickening bilaterally but greater on the right. No hydronephrosis or hydroureter. No nephrolithiasis. Bladder: Normal. Pelvic organs: Uterus surgically absent. Bowel: Moderate stool burden throughout normal caliber colon. Normal appendix, which contains appendicoliths and is partially within a right femoral hernia. No bowel obstruction. Peritoneal cavity: No free fluid or intraperitoneal gas. Lymph nodes: No enlarged lymph nodes in the abdomen or pelvis. Vasculature: Extensive calcified and noncalcified atherosclerotic disease. Mild ectasia of the infrarenal aorta, which measures up to 1.8 cm in diameter. Abdominal wall: Small fat-containing umbilical hernia. No infiltration or hematoma at the reported site of ecchymosis along the right anterior abdominal wall. Musculoskeletal: Degenerative changes of the spine. IMPRESSION: 1. No extensive contusion or hematoma at the right anterior abdominal wall at the site of reported ecchymosis. 2. No convincing evidence of acute intra-abdominal injury. 3. Interval worsening of multifocal nodular opacities with bronchiectasis. This raises concern for an atypical mycobacterial infection such as mycobacterium avium intracellulare. 4. Additional chronic findings as above. Electronically signed by: Vipul Calero M.D. 08/10/2017 3:10 PM Dictated Date/Time: 08/10/2017 3:00 PM
--- NOTE | 2017-08-10 15:49 | DIAGNOSTIC IMAGING REPORT ---
CT OF THE CERVICAL SPINE CLINICAL HISTORY: Neck pain status post trauma COMPARISON STUDY: No previous studies for comparison. CT DOSE: 147.03 mGy.cm TECHNIQUE: CT scan of the cervical spine was performed from the skull base to the thoracic inlet. Images are reviewed in the axial, sagittal, and coronal planes. IV contrast was not administered for this examination. A dose lowering technique was utilized adhering to the principles of ALARA. FINDINGS: The visualized portions of the lung apices reveal no evidence of pneumothorax. There is partial visualization of a 2.5 mm left apical nodule. No acute fractures are visualized. There is 2.7 mm of anterolisthesis of C3 on C4. There is 2.3 mm of anterolisthesis of C6 on C7. The findings are likely on a degenerative basis. There are multilevel degenerative changes IMPRESSION: 1. No evidence of acute fracture 2. Multilevel degenerative changes 3. Mild anterolisthesis of C3 on C4, and C6 on C7, statistically degenerative Electronically signed by: Jose Jackson M.D. 08/10/2017 3:48 PM Dictated Date/Time: 08/10/2017 3:44 PM
[2017-08-10] MEDS ORDERED: POLYETHYLENE (MIRALAX) 17 GM PACK PO PRN (17:15)
[2017-08-10] MEDS ORDERED: PROCHLORPERAZINE MALEATE 10 MG TAB PO PRN (17:15)
[2017-08-10] MEDS ORDERED: ACETAMINOPHEN 325 MG TAB PO PRN (17:15)
[2017-08-10] MEDS ORDERED: MAGNESIUM HYDROXIDE SUSP 30 ML UDC PO PRN (17:15)
[2017-08-10] MEDS ORDERED: ALUMINUM/MAGNESIUM/SIMETH (MAALOX MAX) 30 ML UDC PO PRN (17:15)
--- NOTE | 2017-08-10 17:22 | EMERGENCY ROOM VISIT NOTE ---
History First contact with patient: 13:06 Chief Complaint: SYNCOPE Stated Complaint: FALL/DIZZINESS/RIB PAIN/NECK PAIN Nursing Triage Summary: pt arrived from home via ems post syncope with fall from standing position, pt states became nauseated in kitchen so took zofran, attempted to lay down in bedroom and made it to dining room where pt fell, pt has hematoma with abrasion to right forehead, bruising below right breast with pain 8/10. Pt states incontinent of urine at time of syncope, currently being tx for lung CA. Pt given 4mg zofran PO via ems after failed IV attempt, pt takes 81mg asa daily. History of Present Illness The patient is a 72 year old female who presents to the Emergency Room with complaints of syncopal episode that occurred at home just prior to arrival. The patient was evidently at her home standing in her kitchen when she began to feel nauseated. She also felt like she was going to pass out, and attempted to walk into her living room and lay on her couch. The patient states that she made it into the dining room, where she fell, and presumably landed onto her right side chest and struck the right side of her head. Patient evidently did urinate herself following this episode. She was immediately cared for by her who did not report any seizure-like activity. The patient is currently being treated for lung cancer, and has reportedly been doing well. She has not had recent fever or chills. She does not currently report any breathing difficulty or lightheadedness. She is having pain of her right forehead, neck, and right side chest wall underneath the breast. The pain is sharp in the chest and nonradiating. It worsens with deep breathing. She has not taken anything [id number] for her discomfort which she currently rates a 9/10. She believes she is up-to-date on her tetanus and does not have other complaints at this time. Review of Systems More than 10 systems were reviewed and otherwise negative with the exception of history of present illness. 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 (14) Non-small cell lung cancer (NSCLC) (15) NSTEMI (non-ST elevated myocardial infarction) (16) Osteoporosis Nec (17) Pneumonitis (18) Pulmonary infection (19) Sjogren's disease (20) Syncope (21) Unsteady gait Surgical Problems: (1) H/O: hysterectomy Family History Diabetes mellitus Hypertension Social History Smoking Status: Never Smoker Alcohol Use: none Drug Use: none Marital Status: Housing Status: lives with family Occupation Status: unemployed Current/Historical Medications Scheduled Albuterol Sulfate (Proair Respiclick), 2 PUFFS INH QID Aspirin (Aspirin 81), 81 MG PO QAM Calcium Carbonate-Cholecalcife (Caltrate 600+D), 1 TAB PO BID Cevimeline Hcl (Cevimeline Hcl), 30 MG PO TID Erlotinib (Tarceva), 50 MG PO QPM Immune Globulin (Human) Subcut (Hizentra), 8 GM INJ WK Isosorbide Mononitrate (Imdur Ext Rel), 60 MG PO QAM Magnesium (Magnesium 250 mg), 1 TAB PO QAM Metoprolol Tartrate (Lopressor) (Lopressor), 75 MG PO BID Multivitamins/Minerals (Mvi With Minerals), 1 TAB PO QPM Ondansetron (Ondansetron HCl), 4 MG SL Q6H Potassium Chloride Microencaps (Potassium Chloride Cr), 10 MEQ PO TID Prednisone (Prednisone), 3 MG PO QAM Probiotic Product (Probiotic), 1 TAB PO QPM Raloxifene HCl (Raloxifene Hydrochloride), 60 MG PO QPM Ranolazine (Ranexa), 500 MG PO Q12 Simvastatin (Zocor), 40 MG PO HS Triamterene/Hctz (Triamterene/Hctz 37.5-25MG), 1 TAB PO DAILY Scheduled PRN Epinephrine (Epipen), 0.3 MG IM UD PRN for ALLERGIC REACTION Nitroglycerin (Nitrostat), 0.4 MG UT UD PRN for Chest Pain Prochlorperazine Maleate (Compazine), 10 MG PO for Nausea or Vomiting Tramadol (Ultram), 50 MG PO Q4H PRN for Pain Physical Exam Vital Signs Date Time Temp Pulse Resp B/P (MAP) Pulse Ox O2 Delivery O2 Flow Rate FiO2 08/10/17 16:06 71 16 126/73 95 Room Air 08/10/17 12:53 74 08/10/17 12:44 36.6 74 16 116/63 94 Room Air 08/10/17 12:44 94 Room Air Physical Exam VITALS: Vitals are noted on the nurse's note and reviewed by myself. Vital signs stable. GENERAL: Elderly, thin appearing female who is in moderate discomfort. She is holding the right side of her chest with her right hand. She is cooperative.Hard cervical spine collar is in place. HEAD: There is hematoma and abrasion over the right forehead without distinct laceration. No gutierrez sign or raccoon eyes. EYES: Pupils equal round and reactive to light and accommodation. Conjunctivae without injection, sclerae without icterus. Extraocular movements intact. NOSE: Patent, turbinates without inflammation or discharge. NECK: Hard collar in place limiting examination HEART: Regular rate and rhythm with systolic murmur LUNGS: Clear to auscultation bilaterally without wheezes, rales or rhonchi. No retractions or accessory muscle use. CHEST: Ecchymosis appreciated on the right anterior lateral chest wall just underneath the right breast. This area is diffusely tender without flail chest or rash ABDOMEN: Positive normal bowel sounds x 4. Soft with questionable tenderness in the right upper quadrant MUSCULOSKELETAL: Ecchymosis is noted to the left third finger. Range of motion is diminished. No obvious deformity or laceration. NEURO: Patient was alert and oriented to person place and time. CN II through XII grossly intact. Medical Decision & Procedures ER Provider Diagnostic Interpretation: HEAD CT NONCONTRAST CT DOSE: HISTORY: Syncope. Fall. head injury. CA hx. TECHNIQUE: Multiaxial CT images of the head were performed without the use of intravenous contrast. Automated exposure control was utilized for this study. A dose lowering technique was utilized adhering to the principles of ALARA. Comparison: Head CT 07/08/2017. Findings: The paranasal sinuses and mastoid air cells are clear. The calvarium and skull base are intact. The ventricles and sulci are within normal limits. There is no mass, hematoma, midline shift, or acute infarct. Mild right supraorbital soft tissue swelling. Impression: No acute intracranial abnormality. Mild right supraorbital soft tissue swelling CT OF THE CERVICAL SPINE CLINICAL HISTORY: Neck pain status post trauma COMPARISON STUDY: No previous studies for comparison. CT DOSE: 147.03 mGy.cm TECHNIQUE: CT scan of the cervical spine was performed from the skull base to the thoracic inlet. Images are reviewed in the axial, sagittal, and coronal planes. IV contrast was not administered for this examination. A dose lowering technique was utilized adhering to the principles of ALARA. FINDINGS: The visualized portions of the lung apices reveal no evidence of pneumothorax. There is partial visualization of a 2.5 mm left apical nodule. No acute fractures are visualized. There is 2.7 mm of anterolisthesis of C3 on C4. There is 2.3 mm of anterolisthesis of C6 on C7. The findings are likely on a degenerative basis. There are multilevel degenerative changes IMPRESSION: 1. No evidence of acute fracture 2. Multilevel degenerative changes 3. Mild anterolisthesis of C3 on C4, and C6 on C7, statistically degenerative FACIAL BONES-MXILLOFAC WITHOUT CT DOSE: 1199.36 mGy.cm HISTORY: Trauma. Pain. Syncope fall. TECHNIQUE: Multiaxial CT images of the maxillofacial region were performed and reformatted in the coronal plane without the use of contrast. A dose lowering technique was utilized adhering to the principles of ALARA. COMPARISON: None. FINDINGS: The visualized cervical spine, skull base, pterygoid plates, nasal bones, lamina papyracea, orbital floors, mandible, and zygomatic arches are intact. No fractures. The orbits are unremarkable. IMPRESSION: No fractures within the maxillofacial region. CT ANGIOGRAM OF THE CHEST CLINICAL HISTORY: Right-sided chest pain. Syncope. History of lung carcinoma. Possible pulmonary embolism. COMPARISON STUDY: 07/16/2017 TECHNIQUE: Following the IV administration of 119 mL of Optiray-320, CT angiogram of the thorax was performed from the thoracic inlet to the lung bases utilizing the pulmonary embolus protocol. Images are reviewed in the axial, sagittal, and coronal planes. IV contrast was administered without complication. MIP imaging was performed. A dose lowering technique was utilized adhering to the principles of ALARA. CT DOSE: FINDINGS: No pathologically enlarged axillary mediastinal or hilar lymph nodes were visualized. There was no evidence of thoracic aortic dilatation. There were no pulmonary artery filling defects to indicate acute pulmonary embolism. No pleural effusions are visualized. There is a stable 27 mm right upper lobe mass. There are mild bronchiectatic changes. There is developing right lower lobe atelectasis/consolidation. There are multiple scattered peripheral nodular opacities most pronounced within the right middle lobe and right lower lobe. The distribution favors an infectious etiology, although metastatic disease cannot be excluded with certainty. IMPRESSION: 1. Stable 27 mm right upper lobe mass 2. No evidence of acute pulmonary embolism 3. Slight progression in the multiple scattered peripheral nodular opacities. Distribution again favors a chronic infectious/inflammatory process over neoplasm 4. Developing dependent area of right lower lobe atelectasis/consolidation ABD/PELVIS IV CONTRAST ONLY CLINICAL HISTORY: 72 years-old Female presenting with Syncope and fall. Right side abd pain/ruq bruising, history of non-small cell lung cancer. TECHNIQUE: Multidetector CT of the abdomen and pelvis was performed after the administration of intravenous contrast. IV contrast: 119 mL of Optiray 320. A dose lowering technique was used consistent with the principles of ALARA (as low as reasonably achievable). COMPARISON: 05/27/2017. CT DOSE (mGy.cm): The estimated cumulative dose is 1199.[address] scans. FINDINGS: Denture Model Maker topogram: Median sternotomy wires noted. Surgical clips project over the epigastrium. Lung bases: Interval worsening of multifocal peripheral predominant nodular opacities. Bronchiectasis and multifocal subsegmental bronchial debris evident. Consolidative changes dependently in the right lower lobe surrounded previously noted bleb. Multichamber enlargement of the heart. Coronary artery calcification. No pericardial or pleural effusion. Liver: Normal morphology. Redemonstration of a multilobular hypodense lesion in the right hepatic lobe, unchanged from prior, indeterminate but possibly hepatic cyst. Hypoenhancing region along the posterior right hepatic lobe is unchanged and may represent another hepatic cyst. Patent hepatic vasculature. Biliary: Mild biliary ductal prominence likely a reservoir effect in the post cholecystectomy state. Gallbladder surgically absent. Pancreas: Moderate pancreatic ductal dilatation. Pancreas divisum. Parenchyma normal. Spleen: Normal. Adrenal glands: Normal. Kidneys and ureters: Numerous subcentimeter hypodensities in the kidneys, many too small to characterize but likely simple cysts. Persistent mild urothelial thickening bilaterally but greater on the right. No hydronephrosis or hydroureter. No nephrolithiasis. Bladder: Normal. Pelvic organs: Uterus surgically absent. Bowel: Moderate stool burden throughout normal caliber colon. Normal appendix, which contains appendicoliths and is partially within a right femoral hernia. No bowel obstruction. Peritoneal cavity: No free fluid or intraperitoneal gas. Lymph nodes: No enlarged lymph nodes in the abdomen or pelvis. Vasculature: Extensive calcified and noncalcified atherosclerotic disease. Mild ectasia of the infrarenal aorta, which measures up to 1.8 cm in diameter. Abdominal wall: Small fat-containing umbilical hernia. No infiltration or hematoma at the reported site of ecchymosis along the right anterior abdominal wall. Musculoskeletal: Degenerative changes of the spine. IMPRESSION: 1. No extensive contusion or hematoma at the right anterior abdominal wall at the site of reported ecchymosis. 2. No convincing evidence of acute intra-abdominal injury. 3. Interval worsening of multifocal nodular opacities with bronchiectasis. This raises concern for an atypical mycobacterial infection such as mycobacterium avium intracellulare. 4. Additional chronic findings as above. L HAND MIN 3 VIEWS ROUTINE CLINICAL HISTORY: Fall/syncope. Left hand injury. Left 3rd digit swelling trauma. Pain. COMPARISON: None. DISCUSSION: Considerable degenerative change throughout the entire hand and wrist region. Small cortical evulsion dorsal aspect base distal phalanx third finger. Considerable degenerative change of the remaining interphalangeal joints. Generalized osteopenia. Severe degenerative change first carpometacarpal joint. IMPRESSION: 1. Generalized degenerative change and osteoporosis throughout the entire hand and wrist. 2. Small cortical evulsion dorsal aspect base distal phalanx third finger. Laboratory Results 08/10/17 13:53 Red Blood Count 3.67, Mean Corpuscular Volume 88.8, Mean Corpuscular Hemoglobin 29.4, Mean Corpuscular Hemoglobin Concent 33.1, Mean Platelet Volume 9.7, Neutrophils (%) (Auto) 82.8, Lymphocytes (%) (Auto) 8.8, Monocytes (%) (Auto) 7.8, Eosinophils (%) (Auto) 0.2, Basophils (%) (Auto) 0.0, Neutrophils # (Auto) 8.43, Lymphocytes # (Auto) 0.90, Monocytes # (Auto) 0.79, Eosinophils # (Auto) 0.02, Basophils # (Auto) 0.00 08/10/17 13:53 Test 08/10/17 13:53 08/10/17 13:57 08/10/17 14:00 08/10/17 16:47 White Blood Count 10.18 K/uL (4.8-10.8) Red Blood Count 3.67 M/uL (4.2-5.4) Hemoglobin 10.8 g/dL (12.0-16.0) Hematocrit 32.6 % (37-47) Mean Corpuscular Volume 88.8 fL (80-100) Mean Corpuscular Hemoglobin 29.4 pg (25-34) Mean Corpuscular Hemoglobin Concent 33.1 g/dl (32-36) Platelet Count 171 K/uL (130-400) Mean Platelet Volume 9.7 fL (7.4-10.4) Neutrophils (%) (Auto) 82.8 % Lymphocytes (%) (Auto) 8.8 % Monocytes (%) (Auto) 7.8 % Eosinophils (%) (Auto) 0.2 % Basophils (%) (Auto) 0.0 % Neutrophils # (Auto) 8.43 K/uL (1.4-6.5) Lymphocytes # (Auto) 0.90 K/uL (1.2-3.4) Monocytes # (Auto) 0.79 K/uL (0.11-0.59) Eosinophils # (Auto) 0.02 K/uL (0-0.5) Basophils # (Auto) 0.00 K/uL (0-0.2) RDW Standard Deviation 49.7 fL (36.4-46.3) RDW Coefficient of Variation 15.4 % (11.5-14.5) Immature Granulocyte % (Auto) 0.4 % Immature Granulocyte # (Auto) 0.04 K/uL (0.00-0.02) Prothrombin Time 9.5 SECONDS (9.0-12.0) Prothromb Time International Ratio 0.9 (0.9-1.1) Activated Partial Thromboplast Time 23.1 SECONDS (21.0-31.0) Partial Thromboplastin Ratio 0.9 Est Creatinine Clear Calc Drug Dose 34.0 ml/min Estimated GFR () 68.9 Estimated GFR (Non- 59.4 BUN/Creatinine Ratio 21.4 (10-20) Calcium Level 8.5 mg/dl (8.5-10.1) Magnesium Level 2.3 mg/dl (1.8-2.4) Total Bilirubin 0.6 mg/dl (0.2-1) Aspartate Amino Transf (AST/SGOT) 32 U/L (15-37) Alanine Aminotransferase (ALT/SGPT) 19 U/L (12-78) Alkaline Phosphatase 57 U/L (45-117) Total Protein 6.9 gm/dl (6.4-8.2) Albumin 3.1 gm/dl (3.4-5.0) Globulin 3.8 gm/dl (2.5-4.0) Albumin/Globulin Ratio 0.8 (0.9-2) Lipase 212 U/L (73-393) Thyroid Stimulating Hormone (TSH) 1.020 uIu/ml (0.300-4.500) Bedside Hemoglobin 11.2 g/dl (12.0-16.0) Bedside Hematocrit 33 % (37-47) Bedside Sodium 136 mEq/L (135-144) Bedside Potassium 4.3 mEq/L (3.3-5.0) Bedside Chloride 97 mEq/L (101-112) Bedside Total CO2 28 mEq/l (24-31) Anion Gap 16.0 mmol/L (16-25) Bedside Blood Urea Nitrogen 22 mg/dl (7-18) Bedside Creatinine 0.9 mg/dl (0.6-1.3) Bedside Glucose (other) 110 mg/dl (70-99) Bedside Ionized Calcium (Luigi) 1.09 mmol/l (1.12-1.32) Bedside Troponin I < 0.030 ng/ml (0-0.045) Medications Administered Medications (Trade) Dose Ordered Sig/Jimmy Route Start Time Stop Time Status Last Admin Dose Admin Sodium Chloride 1,000 ml @ 333 mls/hr Q3H1M ONCE IV 08/10/17 13:30 08/10/17 16:30 DC 08/10/17 14:00 333 MLS/HR Morphine Sulfate (MoRPHine SULFATE INJ) 2 mg Q30M PRN IV 08/10/17 13:30 08/24/17 13:29 08/10/17 15:06 2 MG Lorazepam (Ativan Inj) 0.5 mg NOW STAT IV 08/10/17 13:16 08/10/17 13:23 DC 08/10/17 14:00 0.5 MG ECG Per My Interpretation Change: Normal sinus rhythm @74 bpm Nonspecific T wave abnormality Prolonged QT When compared with ECG of 16-JUL-2017 10:51, Incomplete right bundle branch block is no longer Present ED Course Physical exam and history were performed. Nursing notes, EMR, and Medication List were personally reviewed. Patient appears to have had a syncopal episode at home just prior to arrival. She has obvious injury to her head, lower chest/upper abdomen, and left hand. The patient does have a history of cancer and is complaining of neck pain. IV access was established and labs were obtained. The patient was given as needed morphine as well as doses of Ativan and Zofran which seems to have helped her nausea when she was last here as an inpatient. She was hydrated with 1 L normal saline over the course of 3 hours. EKG was performed and is as above. The patient was placed on a bus driver/monitor. Case was discussed with my attending physician, Dr. Tyson, who remain closely involved in care and decision-making. Because of the nature of her injuries and high level of pain, CT scans or felt necessary, and were performed. X-ray of the hand was also obtained. The patient's blood work is as above and was reviewed. She does not have a significantly elevated white blood cell count. She is slightly anemic. She does not have a significant electrolyte imbalance. Troponin 1 is negative. X- ray of the left hand reveals a small avulsion fracture of the third digit. This was splinted. CT scans were reviewed by myself and radiology, and are as above. CT scans were most concerning for a possibly progressive atypical pneumonia versus worsening neoplastic process primarily in the right lower lobe. I did speak directly with radiology, who did not appreciate distinct fracture rib spaces where the patient is having palpable tenderness. Overall the patient does not appear well for discharge home. She has required multiple rounds of pain medication to keep her pain under control. She does have an obvious right-sided chest wall injury as well as what appears to be an underlying atypical pneumonia/cancer. The patient also has extensive medical disease at baseline. I feel this constellation of disease is the cause for her syncopal episode today. I did discuss the case with the on-call hospitalist, Dr. Bright, who was good enough to evaluate the patient here in the department. Please see Dr. Bright dictation for further patient course, plan, and additional medical treatment. The chart was completed utilizing [employer] Voice Recognition Software. Grammatical errors, random word insertions, pronoun errors, and incomplete sentences are an occasional consequence of this system due to software limitations, ambient noise, and hardware issues. Any formal questions or concerns about the content, text, or information contained within the body of this dictation should be directly addressed to the provider for clarification. . Medical Decision Differential diagnosis: Etiologies such as vasovagal event, infection, cardiopulmonary event, dehydration, sepsis, hypoglycemia, electrolyte abnormalities, cardiac sources, intracerebral event, toxicologic, neurologic, as well as others were entertained. Medication Reconcilliation Current Medication List: was personally reviewed by me Blood Pressure Screening Patient's blood pressure: Normal blood pressure Impression Primary Impression: Syncope Additional Impressions: Chest wall contusion Pneumonia Finger fracture, left Departure Information Referrals Orlando Tian M.D. (PCP) Patient Instructions My [facility] Problem Qualifiers Primary Impression: Syncope Syncope type: unspecified Qualified Codes: R55 - Syncope and collapse Additional Impressions: Chest wall contusion Encounter type: initial encounter Laterality: right Qualified Codes: S20.211A - Contusion of right front wall of thorax, initial encounter Pneumonia Aspiration pneumonia type: unspecified Laterality: right Lung location: lower lobe of lung Finger fracture, left Encounter type: initial encounter Finger: middle finger Fracture type: closed Phalanx: distal Fracture alignment: nondisplaced Qualified Codes: S62.663A - Nondisplaced fracture of distal phalanx of left middle finger, initial encounter for closed fracture
[2017-08-10] MEDS ORDERED: LIDODERM (LIDOCAINE) PATCH 5% TD STA (17:33)
--- NOTE | 2017-08-10 17:35 | History and Physical ---
History & Physical Date & Time of Service: Aug 10, 2017 at 17:27 Chief Complaint: Fall/Dizziness/Rib Pain/Neck Pain Primary Care Physician: Orlando Tian M.D. History of Present Illness Source: patient, family Ms. Vega is a 72 y/o female with PMHx of Gastric Lymphoma (Remission), Non- Small Cell Lung CA with Metastatic Flavio Disease, CAD S/P CABG x 4 Vessels, HTN , HLD, Chronic Angina, Chronic Cough, ANTONIETTA, Immunoglobulin Deficiency, and Sjogrens who presents to the ED after syncope and collapse earlier today. Patient states she was in her normal state of health upon awakening today. Does report progressive weakness and fatigue related to ongoing treatment for non- small cell lung CA but has been relatively well. She state she was in the kitchen preparing lunch when she become nauseated and felt as if she was going to vomit. She took Zofran and tried to ambulate to the living room to sit down. She ultimately sustained a fall from a standing position and hit the R side of her head, elbow, and chest/side. witnessed the fall and is not sure if she completely blacked out or not. When he arrived to her she was awake but dazed with significant bleeding from the R head. She was incontinent of urine however no witnessed convulsions or tongue biting. states her appetite has been a lot better lately but states she has been exerting herself more this weekend as they have a bedridden son and he reports her going up and down steps frequently. Patient also reports sinus congestion and post-nasal drip that developed over the past couple days. She denies fever/chills or chest congestion. Currently she is complaining of R sided pain with bruising noted to RUQ/chest region and finger pain. Hines-scanning reveals only a broken finger. She is still undergoing treatment with Tarceva. She has had 2 recent admissions secondary to presumed adverse effects of this medication when trying to titrate her up. However she has been reduced down to only 50 mg daily at 10 PM (was originally taking 100 mg daily and attempted to increase to 150 mg daily). Clinically she appears dehydrated with dry oral mucosa. CT suggests possible progressing infiltrates and she does have a H/O ANTONIETTA. Will obtain procalcitonin and assess needs for Abx therapy. Past Medical/Surgical History Medical Problems: (1) Acute bronchitis (2) ACUTE BRONCHITIS WITH CHRONIC LUNG DIASE. EXACE., CAD, NHL (3) Acute bronchopneumonia (4) Acute exacerbation of chronic obstructive pulmonary disease (COPD) (5) ASHD (arteriosclerotic heart disease) (6) Autoimmune hepatitis (7) B-cell lymphoma of extranodal site (8) B-cell lymphoma of solid organ (9) Bilateral bronchopneumonia (10) Bilateral pneumonia (11) Bronchopneumonia (12) BRONCOPNEUMONIA ORG NOS (13) Chest pain (14) Common bile duct dilation (15) Coronary artery bypass grafts x 4 (16) Coronary artery disease (17) Dehydration (18) Diarrhea due to drug (19) Elevated troponin (20) Elevated troponin (21) Epigastric abdominal pain (22) Fall (23) FALL. LEFT RIB PAIN (24) Fever (25) HTN (hypertension) (26) Hypercalcemia (27) Hyperlipemia (28) Hypomagnesemia (29) Hypothyroidism Nos (30) Hypoxia (31) Immunodeficiency (32) Intractable abdominal pain (33) Intractable nausea and vomiting (34) INTRACTABLE NAUSEA/VOMIT, LYMPHOMA (35) Kidney stones (36) Lymphedema (37) Mycobacterium avium-intracellulare infection (38) Non-small cell lung cancer (NSCLC) (39) NSTEMI (non-ST elevated myocardial infarction) (40) Osteoporosis Nec (41) Pneumonitis (42) Precordial chest pain (43) Pulmonary infection (44) Shortness of breath on exertion (45) Sjogren's disease (46) Syncope (47) Syncope and Collapse (48) Unsteady gait (49) URI (upper respiratory infection) (50) Weakness Surgical Problems: (1) H/O: hysterectomy Family History Diabetes mellitus Hypertension Social History Smoking Status: Never Smoker Drug Use: none Marital Status: Housing status: lives with family Occupational Status: unemployed Immunizations History of Influenza Vaccine: Yes Influenza Vaccine Date: Jan 10, 2013 History of Tetanus Vaccine?: Yes Tetanus Immunization Date: Aug 17, 2008 History of Pneumococcal: Yes Pneumococcal Date: Feb 16, 2009 History of Hepatitis B Vaccine: No Allergies Coded Allergies: No Known Allergies (Unverified , 07/02/17) Home Medications Scheduled Albuterol Sulfate (Proair Respiclick), 2 PUFFS INH QID Aspirin (Aspirin 81), 81 MG PO QAM Calcium Carbonate-Cholecalcife (Caltrate 600+D), 1 TAB PO BID Cevimeline Hcl (Cevimeline Hcl), 30 MG PO TID Erlotinib (Tarceva), 50 MG PO QPM Immune Globulin (Human) Subcut (Hizentra), 8 GM INJ WK Isosorbide Mononitrate (Imdur Ext Rel), 60 MG PO QAM Magnesium (Magnesium 250 mg), 1 TAB PO QAM Metoprolol Tartrate (Lopressor) (Lopressor), 75 MG PO BID Multivitamins/Minerals (Mvi With Minerals), 1 TAB PO QPM Ondansetron (Ondansetron HCl), 4 MG SL Q6H Potassium Chloride Microencaps (Potassium Chloride Cr), 10 MEQ PO TID Prednisone (Prednisone), 3 MG PO QAM Probiotic Product (Probiotic), 1 TAB PO QPM Raloxifene HCl (Raloxifene Hydrochloride), 60 MG PO QPM Ranolazine (Ranexa), 500 MG PO Q12 Simvastatin (Zocor), 40 MG PO HS Triamterene/Hctz (Triamterene/Hctz 37.5-25MG), 1 TAB PO DAILY Scheduled PRN Epinephrine (Epipen), 0.3 MG IM UD PRN for ALLERGIC REACTION Nitroglycerin (Nitrostat), 0.4 MG UT UD PRN for Chest Pain Prochlorperazine Maleate (Compazine), 10 MG PO for Nausea or Vomiting Tramadol (Ultram), 50 MG PO Q4H PRN for Pain Review of Systems Constitutional: + weakness (generalized - ongoing), No fever, No chills ENT: + nasal symptoms, No sore throat, No trouble swallowing Respiratory: No cough, No shortness of breath Cardiovascular: No chest pain Abdomen: No pain, No nausea, No vomiting Musculoskeletal: No swelling, No calf pain Genitourinary - Female: No dysuria, No urinary frequency Neurologic: No numbness/tingling Hematologic / Lymphatic: No abnormal bleeding/bruising Physical Exam Vital Signs Date Time Temp Pulse Resp B/P (MAP) Pulse Ox O2 Delivery O2 Flow Rate FiO2 08/10/17 16:06 71 16 126/73 95 Room Air 08/10/17 12:53 74 08/10/17 12:44 36.6 74 16 116/63 94 Room Air 08/10/17 12:44 94 Room Air General Appearance: no apparent distress, + thin Head: normocephalic, + evidence of trama (R temporal/forehead laceration scabbed over without active bleeding) Eyes: PERRL, EOMI, sclerae normal ENT: hearing grossly normal, + pertinent finding (dry oral mucosa) Neck: supple, no JVD, trachea midline, + pertinent finding (no carotid bruits b /l) Respiratory/Chest: lungs clear, no respiratory distress, no accessory muscle use Cardiovascular: regular rate, rhythm Abdomen/GI: normal bowel sounds, non tender, soft, + pertinent finding (large ecchymosis of RUQ) Extremities/Musculoskelatal: no pedal edema, + pertinent finding (R middle finger with splint) Neurologic/Psych: no motor/sensory deficits, alert, oriented x 3 Skin: normal color, warm/dry Diagnostics Laboratory Results Results Past 24 Hours Test 08/10/17 13:53 08/10/17 13:57 08/10/17 14:00 08/10/17 16:47 Range/Units White Blood Count 10.18 4.8-10.8 K/uL Red Blood Count 3.67 4.2-5.4 M/uL Hemoglobin 10.8 12.0-16.0 g/dL Hematocrit 32.6 37-47 % Mean Corpuscular Volume 88.8 80-100 fL Mean Corpuscular Hemoglobin 29.4 25-34 pg Mean Corpuscular Hemoglobin Concent 33.1 32-36 g/dl Platelet Count 171 130-400 K/uL Mean Platelet Volume 9.7 7.4-10.4 fL Neutrophils (%) (Auto) 82.8 % Lymphocytes (%) (Auto) 8.8 % Monocytes (%) (Auto) 7.8 % Eosinophils (%) (Auto) 0.2 % Basophils (%) (Auto) 0.0 % Neutrophils # (Auto) 8.43 1.4-6.5 K/uL Lymphocytes # (Auto) 0.90 1.2-3.4 K/uL Monocytes # (Auto) 0.79 0.11-0.59 K/uL Eosinophils # (Auto) 0.02 0-0.5 K/uL Basophils # (Auto) 0.00 0-0.2 K/uL RDW Standard Deviation 49.7 36.4-46.3 fL RDW Coefficient of Variation 15.4 11.5-14.5 % Immature Granulocyte % (Auto) 0.4 % Immature Granulocyte # (Auto) 0.04 0.00-0.02 K/uL Prothrombin Time 9.5 9.0-12.0 SECONDS Prothromb Time International Ratio 0.9 0.9-1.1 Activated Partial Thromboplast Time 23.1 21.0-31.0 SECONDS Partial Thromboplastin Ratio 0.9 Sodium Level 135 136-145 mmol/L Potassium Level 4.2 3.5-5.1 mmol/L Chloride Level 101 98-107 mmol/L Carbon Dioxide Level 26 21-32 mmol/L Anion Gap 8.0 16.0 16-25 mmol/L Blood Urea Nitrogen 20 7-18 mg/dl Creatinine 0.95 0.60-1.20 mg/dl Est Creatinine Clear Calc Drug Dose 34.0 ml/min Estimated GFR () 68.9 Estimated GFR (Non- 59.4 BUN/Creatinine Ratio 21.4 10-20 Random Glucose 106 70-99 mg/dl Calcium Level 8.5 8.5-10.1 mg/dl Magnesium Level 2.3 1.8-2.4 mg/dl Total Bilirubin 0.6 0.2-1 mg/dl Aspartate Amino Transf (AST/SGOT) 32 15-37 U/L Alanine Aminotransferase (ALT/SGPT) 19 12-78 U/L Alkaline Phosphatase 57 45-117 U/L Total Protein 6.9 6.4-8.2 gm/dl Albumin 3.1 3.4-5.0 gm/dl Globulin 3.8 2.5-4.0 gm/dl Albumin/Globulin Ratio 0.8 0.9-2 Lipase 212 73-393 U/L Thyroid Stimulating Hormone (TSH) 1.020 0.300-4.500 uIu/ml Bedside Hemoglobin 11.2 12.0-16.0 g/dl Bedside Hematocrit 33 37-47 % Bedside Sodium 136 135-144 mEq/L Bedside Potassium 4.3 3.3-5.0 mEq/L Bedside Chloride 97 101-112 mEq/L Bedside Total CO2 28 24-31 mEq/l Bedside Blood Urea Nitrogen 22 7-18 mg/dl Bedside Creatinine 0.9 0.6-1.3 mg/dl Bedside Glucose (other) 110 70-99 mg/dl Bedside Ionized Calcium (Luigi) 1.09 1.12-1.32 mmol/l Bedside Troponin I < 0.030 0-0.045 ng/ml Urine Color YELLOW Urine Appearance CLOUDY CLEAR Urine pH 7.0 4.5-7.5 Urine Specific Justice 1.044 1.000-1.030 Urine Protein NEG NEG Urine Glucose (UA) NEG NEG Urine Ketones NEG NEG Urine Occult Blood NEG NEG Urine Nitrite POS NEG Urine Bilirubin NEG NEG Urine Urobilinogen NEG NEG Urine Leukocyte Esterase SMALL NEG Urine WBC (Auto) 10-30 0-5 /hpf Urine RBC (Auto) 0-4 0-4 /hpf Urine Hyaline Casts (Auto) 1-5 0-5 /lpf Urine Epithelial Cells (Auto) >30 0-5 /lpf Urine Bacteria (Auto) 3+ NEG Microbiology Results 08/10/17 Urine Culture, Received Pending Diagnostic Radiology HEAD CT NONCONTRAST Findings: The paranasal sinuses and mastoid air cells are clear. The calvarium and skull base are intact. The ventricles and sulci are within normal limits. There is no mass, hematoma, midline shift, or acute infarct. Mild right supraorbital soft tissue swelling. Impression: No acute intracranial abnormality. Mild right supraorbital soft tissue swelling L HAND MIN 3 VIEWS ROUTINE DISCUSSION: Considerable degenerative change throughout the entire hand and wrist region. Small cortical evulsion dorsal aspect base distal phalanx third finger. Considerable degenerative change of the remaining interphalangeal joints. Generalized osteopenia. Severe degenerative change first carpometacarpal joint. IMPRESSION: 1. Generalized degenerative change and osteoporosis throughout the entire hand and wrist. 2. Small cortical evulsion dorsal aspect base distal phalanx third finger. CT ANGIOGRAM OF THE CHEST FINDINGS: No pathologically enlarged axillary mediastinal or hilar lymph nodes were visualized. There was no evidence of thoracic aortic dilatation. There were no pulmonary artery filling defects to indicate acute pulmonary embolism. No pleural effusions are visualized. There is a stable 27 mm right upper lobe mass. There are mild bronchiectatic changes. There is developing right lower lobe atelectasis/consolidation. There are multiple scattered peripheral nodular opacities most pronounced within the right middle lobe and right lower lobe. The distribution favors an infectious etiology, although metastatic disease cannot be excluded with certainty. IMPRESSION: 1. Stable 27 mm right upper lobe mass 2. No evidence of acute pulmonary embolism 3. Slight progression in the multiple scattered peripheral nodular opacities. Distribution again favors a chronic infectious/inflammatory process over neoplasm 4. Developing dependent area of right lower lobe atelectasis/consolidation ABD/PELVIS IV CONTRAST ONLY FINDINGS: Mending Carrier topogram: Median sternotomy wires noted. Surgical clips project over the epigastrium. Lung bases: Interval worsening of multifocal peripheral predominant nodular opacities. Bronchiectasis and multifocal subsegmental bronchial debris evident. Consolidative changes dependently in the right lower lobe surrounded previously noted bleb. Multichamber enlargement of the heart. Coronary artery calcification. No pericardial or pleural effusion. Liver: Normal morphology. Redemonstration of a multilobular hypodense lesion in the right hepatic lobe, unchanged from prior, indeterminate but possibly hepatic cyst. Hypoenhancing region along the posterior right hepatic lobe is unchanged and may represent another hepatic cyst. Patent hepatic vasculature. Biliary: Mild biliary ductal prominence likely a reservoir effect in the post cholecystectomy state. Gallbladder surgically absent. Pancreas: Moderate pancreatic ductal dilatation. Pancreas divisum. Parenchyma normal. Spleen: Normal. Adrenal glands: Normal. Kidneys and ureters: Numerous subcentimeter hypodensities in the kidneys, many too small to characterize but likely simple cysts. Persistent mild urothelial thickening bilaterally but greater on the right. No hydronephrosis or hydroureter. No nephrolithiasis. Bladder: Normal. Pelvic organs: Uterus surgically absent. Bowel: Moderate stool burden throughout normal caliber colon. Normal appendix, which contains appendicoliths and is partially within a right femoral hernia. No bowel obstruction. Peritoneal cavity: No free fluid or intraperitoneal gas. Lymph nodes: No enlarged lymph nodes in the abdomen or pelvis. Vasculature: Extensive calcified and noncalcified atherosclerotic disease. Mild ectasia of the infrarenal aorta, which measures up to 1.8 cm in diameter. Abdominal wall: Small fat-containing umbilical hernia. No infiltration or hematoma at the reported site of ecchymosis along the right anterior abdominal wall. Musculoskeletal: Degenerative changes of the spine. IMPRESSION: 1. No extensive contusion or hematoma at the right anterior abdominal wall at the site of reported ecchymosis. 2. No convincing evidence of acute intra-abdominal injury. 3. Interval worsening of multifocal nodular opacities with bronchiectasis. This raises concern for an atypical mycobacterial infection such as mycobacterium avium intracellulare. 4. Additional chronic findings as above. EKG Normal sinus rhythm Nonspecific T wave abnormality Prolonged QT Abnormal ECG When compared with ECG of 16-JUL-2017 10:51, Incomplete right bundle branch block is no longer Present Impression Assessment and Plan Ms. Vega is a 72 y/o female with PMHx of Gastric Lymphoma (Remission), Non- Small Cell Lung CA with Metastatic Flavio Disease, CAD S/P CABG x 4 Vessels, HTN , HLD, Chronic Angina, Chronic Cough, ANTONIETTA, Immunoglobulin Deficiency, and Sjogrens who presents to the ED after syncope and collapse earlier today. Syncope and Collapse 2/2 Dehydration vs Vagal vs ACS - This favors some dehydration or vagal episode - UA suggest UTI with Cx pending and will hold on antibiotics at this time but will monitor as she is immunocompromised - Observe on telemetry for rhythm monitoring and serial cardiac enzymes - Echo from June 2017 reviewed - normal EF, class I diastolic dysfunction; mild hypokinesis and multiple wall segments which are improved from 2017 echo - no need for repeat echocardiogram - Carotid dopplers, orthostatic BPs - NSS at 80 mL/hr L 3rd Finger Fx and R Chest Ecchymosis and R Head Laceration: - Splint and pain control; no sutures required for head lac; Lidoderm patch for rib pain and Tramadol PRN Non-Small Cell Lung CA with Metastatic Flavio Disease/ANTONIETTA/Chronic Cough: - Ventolin 2 puffs QID; Prednisone 3 mg daily - Tarceva 50 mg daily at 10 PM - non-formulary and may take own medication Sjogrens: - Cevimeline 30 mg TID - non-formulary and may take own CAD S/P CABG x 4 and HTN/HLD and Chronic Angina: - ASA 81 mg daily, Simvastatin 40 mg HS - Imdur 60 mg daily, Lopressor 75 mg BID, Ranexa 500 mg BID - will need to monitor these medications as possible etiology for syncope as hypotension could be a factor Protein-Calorie Malnutrition: - Boost BID DVT Prophylaxis: SCDs Code Status: FULL RESUSCITATION Disposition: Hydrate and PT/OT evaluations - possible D/C tomorrow Resuscitation Status VTE Prophylaxis Will order VTE Prophylaxis: Yes Reviewed: Pt Seen/Exam by Me History Pt has pain under her R breast and a headache on the R side of her head. Tolerating PO without issue and is hungry now. Denies chest pain, SOB. Agree with HPI/ROS as noted by PA. 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
[2017-08-10] MEDS ORDERED: IV FLUIDS COMPLETED PRN (18:15)
--- NOTE | 2017-08-10 18:27 | DIAGNOSTIC IMAGING REPORT ---
CAROTID DOPPLER NECK ART CLINICAL HISTORY: 72 years-old Female with Syncope. Acute syncope COMPARISON: CT head 07/08/2017 TECHNIQUE: Multiple real time sonographic images of the carotid bifurcations were obtained assessing russo scale, color Doppler and spectral wave form appearance FINDINGS: RIGHT INTERNAL CAROTID: The peak systolic velocity measured 60 cm/sec. The end diastolic velocity measured 23 cm/sec. The ICA to CCA ratio measured 1.1 which correlates with a stenosis of 0-50%. Mild atherosclerosis of the carotid bulb. LEFT INTERNAL CAROTID: The peak systolic velocity measured 63 cm/sec. The end diastolic velocity measured 26 cm/sec. The ICA to CCA ratio measured 1.1 which correlates with a stenosis of 0-50%. Mild atherosclerosis of the carotid bulb. There is normal antegrade vertebral flow bilaterally. Blood pressure on the right was recorded at 117/68 and on the left at 121/69 IMPRESSION: 1. No hemodynamically significant stenosis or significant atherosclerotic plaquing. 2. Normal antegrade vertebral flow bilaterally. The above report was generated using voice recognition software. It may contain grammatical, syntax or spelling errors. Electronically signed by: Selvin Lundberg M.D. 08/10/2017 6:25 PM Dictated Date/Time: 08/10/2017 6:22 PM
[2017-08-10] MEDS ORDERED: MoRPHine SULFATE 2 MG/ML CARP ONE (18:52)
[2017-08-10] MEDS: SODIUM CHLORIDE 0.9% 1000ML 1,000 ML IV SCH (18:56)
[2017-08-10 20:05] VITALS: BP 133/73; PULSE 72; TEMP 36.8; O2SAT 93
[2017-08-10] MEDS: BOOST VANILLA PO SCH (20:36)
[2017-08-10] MEDS: ALBUTEROL HFA 8 GM INHALER INH SCH (20:37)
[2017-08-10] MEDS: CEVIMELINE 30 MG CAP PO SCH (20:40)
[2017-08-10] MEDS: METOPROLOL TARTRATE 25 MG TAB PO SCH (20:41)
[2017-08-10] MEDS: RANOLAZINE 500 MG ER TAB PO SCH (20:45)
[2017-08-10] MEDS ORDERED: SIMVASTATIN 40 MG TAB PO SCH (21:00)
[2017-08-10] MEDS ORDERED: RALOXIFENE 60 MG TAB PO SCH (21:00)
[2017-08-10] MEDS ORDERED: LACTOBACILLUS ACIDOPHILUS (FLORANEX) TAB PO SCH (21:00)
[2017-08-10] MEDS ORDERED: TARCEVA PO SCH (22:00)
[2017-08-10] MEDS: TRAMADOL HCL 50 MG TAB PO PRN (22:03)
[2017-08-10 22:04] VITALS: BP 133/73; PULSE 72; TEMP 36.8; O2SAT 93; Ht 147.3 cm; Wt 43.4 kg
[2017-08-11] VITALS: BP_SYST 114; BP_SYST 121; BP_SYST 122; BP_DIAS 69; BP_DIAS 73; BP_DIAS 75; PULSE 69; PULSE 70; PULSE 73; TEMP 36.9; O2SAT 93
[2017-08-11 02:16] LABS: HEMATOCRIT 29.7 % (37-47); HEMOGLOBIN 9.6 g/dL (12.0-16.0); MEAN CELL VOLUME 88.9 fL (80-100); MEAN CORPUSCULAR HEMOGLOBIN 28.7 pg (25-34); MEAN CORPUSCULAR HGB CONC 32.3 g/dl (32-36); MEAN PLATELET VOLUME 9.5 fL (7.4-10.4); PLATELET COUNT 153 K/uL (130-400); RED CELL DISTRIBUTION WIDTH CV 15.6 % (11.5-14.5); RED CELL DISTRIBUTION WIDTH SD 51.1 fL (36.4-46.3); WHITE BLOOD COUNT 5.66 K/uL (4.8-10.8)
[2017-08-11 02:33] LABS: CALCIUM 7.5 mg/dl (8.5-10.1); CREATININE 0.82 mg/dl (0.60-1.20); POTASSIUM 3.7 mmol/L (3.5-5.1)
[2017-08-11] MEDS: TRAMADOL HCL 50 MG TAB PO PRN ×2 (03:11→10:31)
[2017-08-11 04:11] VITALS: BP 131/68; PULSE 72; TEMP 36.8; O2SAT 92
[2017-08-11] MEDS: ONDANSETRON INJ 2 MG/ML 2 ML VIAL IV PRN ×2 (04:57→10:33)
[2017-08-11 07:17] VITALS: BP 117/80; PULSE 72; TEMP 36.8; O2SAT 94
[2017-08-11] MEDS: SODIUM CHLORIDE 0.9% 1000ML 1,000 ML IV SCH (08:18)
[2017-08-11] MEDS: CEVIMELINE 30 MG CAP PO SCH ×2 (08:19→13:50)
[2017-08-11] MEDS: ALBUTEROL HFA 8 GM INHALER INH SCH ×2 (08:19→12:30)
[2017-08-11] MEDS: RANOLAZINE 500 MG ER TAB PO SCH (08:21)
[2017-08-11] MEDS: METOPROLOL TARTRATE 25 MG TAB PO SCH (08:21)
[2017-08-11] MEDS: BOOST VANILLA PO SCH (08:25)
[2017-08-11] MEDS ORDERED: LIDODERM (LIDOCAINE) PATCH 5% TD SCH (09:00)
[2017-08-11] MEDS ORDERED: ISOSORBIDE MONONITRATE 60 MG TABCR PO SCH (09:00)
[2017-08-11] MEDS ORDERED: MAGNESIUM OXIDE 400 MG TAB PO SCH (09:00)
[2017-08-11] MEDS ORDERED: ASPIRIN 81 MG ECTAB PO SCH (09:00)
[2017-08-11] MEDS ORDERED: CIPROFLOXACIN 500 MG TAB PO SCH (10:30)
[2017-08-11] MEDS ORDERED: NURSING VERBAL MED ORDER ONE (10:45)
[2017-08-11 12:14] VITALS: BP 109/72; PULSE 66; TEMP 36.5; O2SAT 98
--- NOTE | 2017-08-11 12:43 | Discharge Instructions ---
Discharge Instructions Date of Service Aug 11, 2017. Admission Reason for Admission: Syncope And Collapse Discharge Discharge Diagnosis / Problem: passing out, urine infection and finger fracture Discharge Goals Goal(s): Diagnostic testing, Therapeutic intervention Activity Recommendations Activity Limitations: as noted below Lifting Limitations: gradually increase as tolerated . Instructions / Follow-Up Instructions / Follow-Up We will stop your fluid pill until you see your family doctor in follow up We are starting an antibiotic and if we need to amend the dose or type we will call you at home Current Hospital Diet Patient's current hospital diet: AHA Diet (Heart Healthy) Discharge Diet Recommended Diet: Regular Diet Pending Studies Studies pending at discharge: no Medical Emergencies . Who to Call and When: Medical Emergencies: If at any time you feel your situation is an emergency, please call 911 immediately. . Non-Emergent Contact Non-Emergency issues call your: Primary Care Provider, Oncologist Call Non-Emergent contact if: temperature is above 101, your pain is unusual for you . . "Provider Documentation" section prepared by Willie Avina. .
[2017-08-11] MEDS ORDERED: CPR500 PO (12:52)
[2017-08-11 13:00] VITALS: BP 109/72; PULSE 66; TEMP 36.5; O2SAT 98
--- NOTE | 2017-08-11 15:14 | Discharge Summary ---
Discharge Summary Date of Service Aug 11, 2017. Discharge Summary Admission Date: Aug 10, 2017 at 17:22 Discharge Date: Aug 11, 2017 Discharge Disposition: Home Principal Diagnosis: syncope, left 4th finger fx, UTI poa Problems/Secondary Diagnoses: (1) Coronary artery disease Status: Chronic Immunizations: Have You Had Influenza Vaccine: Yes Influenza Vaccine Date: Jan 10, 2013 History of Tetanus Vaccine?: Yes Tetanus Immunization Date: Aug 17, 2008 History of Pneumococcal: Yes Pneumococcal Date: Feb 16, 2009 History of Hepatitis B Vaccine: No Medication Reconciliation New Medications: Ciprofloxacin (Ciprofloxacin HCl) 500 Mg Tab 500 MG PO BID, #6 DOSE Continued Medications: Albuterol Sulfate (Proair Respiclick) 108 Mcg/Act Aer 2 PUFFS INH QID Aspirin (Aspirin 81) 81 Mg Tab 81 MG PO QAM OK WITH SURGEON TO CONTINUE PER PT Calcium Carbonate-Cholecalcife (Caltrate 600+D) 1 Tab Tab 1 TAB PO BID Cevimeline Hcl (Cevimeline Hcl) 30 Mg Cap 30 MG PO TID Epinephrine (Epipen) 0.3 Mg/0.3 Ml Inj 0.3 MG IM UD PRN for ALLERGIC REACTION PT ON HYZENTRA INFUSION WEEKLY AND THE EPI WAS PRESCRIBED IN CASE OF REACTION TO THIS MEDICATION Erlotinib (Tarceva) 25 Mg Tab 50 MG PO QPM Immune Globulin (Human) Subcut (Hizentra) 4 Gm/20 Ml Inj 8 GM INJ WK Inject on Fridays Isosorbide Mononitrate (Imdur Ext Rel) 60 Mg Tab 60 MG PO QAM, TAB Magnesium (Magnesium 250 mg) 1 Tab Tab 1 TAB PO QAM Metoprolol Tartrate (Lopressor) (Lopressor) 50 Mg Tab 75 MG PO BID, TAB Multivitamins/Minerals (Mvi With Minerals) Tab 1 TAB PO QPM, TAB Nitroglycerin (Nitrostat) 0.4 Mg Sub 0.4 MG UT UD PRN for Chest Pain Ondansetron (Ondansetron HCl) 4 Mg Tab 4 MG SL Q6H for 30 Days, #120 TAB Potassium Chloride Microencaps (Potassium Chloride Cr) 10 Meq Tab 10 MEQ PO TID Prednisone (Prednisone) 1 Mg Tab 3 MG PO QAM, TAB Probiotic Product (Probiotic) 1 Cap Cap 1 TAB PO QPM Prochlorperazine Maleate (Compazine) 10 Mg Tab 10 MG PO PRN for Nausea or Vomiting, TAB Raloxifene HCl (Raloxifene Hydrochloride) 60 Mg Tab 60 MG PO QPM, #90 Ranolazine (Ranexa) 500 Mg Tabcr 500 MG PO Q12 Simvastatin (Zocor) 40 Mg Tab 40 MG PO HS, TAB Tramadol (Ultram) 50 Mg Tab 50 MG PO Q4H PRN for Pain, #15 TAB Discontinued Medications: Triamterene/Hctz (Triamterene/Hctz 37.5-25MG) 1 Tab Tab 1 TAB PO DAILY for 30 Days, #30 TAB 5 Refills Discharge Exam Review of Systems: Constitutional: No fever, No chills Respiratory: No cough, No sputum, No wheezing, No shortness of breath Cardiovascular: No chest pain, No orthopnea, No edema Abdomen: No pain, No nausea, No vomiting, No diarrhea Neurologic: No memory loss, No paralysis, No weakness Psychiatric: No depression symptoms, No anhedonism, No anxiety Physical Exam: General Appearance: WD/WN, no apparent distress Eyes: normal inspection, sclerae normal Neck: supple, no JVD Respiratory/Chest: chest non-tender, lungs clear, normal breath sounds Cardiovascular: regular rate, rhythm, no murmur Abdomen / GI: normal bowel sounds, non tender, soft Neurologic/Psychiatric: alert, oriented x 3 Skin: normal color, warm/dry, no rash Hospital Course Ms. 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/ANTONIETTA/Chronic Cough: - Ventolin 2 puffs QID; Prednisone 3 mg daily - Tarceva 50 mg daily at 10 PM Sjogrens: - Cevimeline 30 mg TID - CAD S/P CABG x 4 and HTN/HLD and Chronic Angina: - ASA 81 mg daily, Simvastatin 40 mg HS - Imdur 60 mg daily, Lopressor 75 mg BID, Ranexa 500 mg BID - will need to monitor these medications as possible etiology for syncope as hypotension could be a factor Protein-Calorie Malnutrition: - Boost BID DVT Prophylaxis: SCDs Code Status: FULL RESUSCITATION Total Time Spent: Greater than 30 minutes This includes examination of the patient, discharge planning, medication reconciliation, and communication with other providers. Discharge Instructions Please refer to the electronic Patient Visit Report (Discharge Instructions) for additional information.
== END 2017-08-11 14:35 | disposition home or self-care (01) ==
LOC: EDBD 12:31 → C.EDA 12:33 → C.MED 17:22 → ENRESERV 18:17 → C.MED 20:14
PROVIDERS: ADMIT Family Medicine; ATTEND Family Medicine
DX: R55 Syncope and collapse (principal); S20.211A Contusion of right front wall of thorax, initial encounter; S62.633A Displaced fracture of distal phalanx of left middle finger, initial encounter for closed fracture; N39.0 Urinary tract infection, site not specified; M35.00 Sjogren syndrome, unspecified; I20.9 Angina pectoris, unspecified; I25.10 Atherosclerotic heart disease of native coronary artery without angina pectoris; Z95.5 Presence of coronary angioplasty implant and graft; I10 Essential (primary) hypertension; E03.9 Hypothyroidism, unspecified; M85.80 Other specified disorders of bone density and structure, unspecified site; Z87.442 Personal history of urinary calculi; Z85.118 Personal history of other malignant neoplasm of bronchus and lung; Z90.710 Acquired absence of both cervix and uterus; Z83.3 Family history of diabetes mellitus; Z82.49 Family history of ischemic heart disease and other diseases of the circulatory system; Z79.82 Long term (current) use of aspirin; Z87.01 Personal history of pneumonia (recurrent); W19.XXXA Unspecified fall, initial encounter

== ENCOUNTER → 2017-11-18 | Outpatient (CLI) | payer BC ==
[~2017-11-18] MED LIST changes: -BENZ100C18 PO; +CPR500 PO; +ERLO25TA PO; -HYCUDL5 PO; +PROC10TA PO; -PROC1TAB5 PO; -PRT40 PO; -TRAM-10 PO; -TRIATAB3 PO; -[UNRECOGNIZED DRUG - CODE] PO
[2017-11-18 13:10] LABS: BASO % 0.2 %; BASO ABS # 0.01 K/uL (0-0.2); EOS % 1.5 %; EOS ABS # 0.06 K/uL (0-0.5); HEMATOCRIT 34.1 % (37-47); HEMOGLOBIN 11.2 g/dL (12.0-16.0); IG# 0.01 K/uL (0.00-0.02); LYMPH % 20.6 %; LYMPH ABS # 0.85 K/uL (1.2-3.4); MEAN CELL VOLUME 89.7 fL (80-100); MEAN CORPUSCULAR HEMOGLOBIN 29.5 pg (25-34); MEAN CORPUSCULAR HGB CONC 32.8 g/dl (32-36); MEAN PLATELET VOLUME 11.4 fL (7.4-10.4); NEUT % 60.5 %; NEUT ABS # 2.49 K/uL (1.4-6.5); PLATELET COUNT 129 K/uL (130-400); RED CELL DISTRIBUTION WIDTH CV 17.4 % (11.5-14.5); RED CELL DISTRIBUTION WIDTH SD 56.5 fL (36.4-46.3); WHITE BLOOD COUNT 4.12 K/uL (4.8-10.8)
[2017-11-18 13:27] LABS: ALBUMIN 2.8 gm/dl (3.4-5.0); ALKALINE PHOSPHATASE 59 U/L (45-117); ALT/SGPT 21 U/L (12-78); AST/SGOT 34 U/L (15-37); BLOOD UREA NITROGEN 19 mg/dl (7-18); CALCIUM 7.9 mg/dl (8.5-10.1); CARBON DIOXIDE 26 mmol/L (21-32); CREATININE 0.93 mg/dl (0.60-1.20); GLUCOSE 96 mg/dl (70-99); POTASSIUM 3.6 mmol/L (3.5-5.1); SODIUM 138 mmol/L (136-145); TOTAL PROTEIN 6.7 gm/dl (6.4-8.2)
== END | disposition home or self-care (01) ==
LOC: C.LABSPEC 11:49
PROVIDERS: ATTEND Internal Medicine Hematology & Oncology
DX: C34.91 Malignant neoplasm of unspecified part of right bronchus or lung (principal)

== ENCOUNTER → 2017-11-20 | Outpatient (CLI) | payer BC | END | disposition home or self-care (01) | LOC: C.LABSPEC 12:57 | PROVIDERS: ATTEND Internal Medicine Cardiovascular Disease | DX: I25.10 Atherosclerotic heart disease of native coronary artery without angina pectoris (principal); E78.01 Familial hypercholesterolemia ==

== ENCOUNTER → 2017-11-25 | Outpatient (CLI) | payer BC ==
[2017-11-25 10:39] LABS: EOS % 0.9 %; EOS ABS # 0.04 K/uL (0-0.5); HEMATOCRIT 36.1 % (37-47); HEMOGLOBIN 11.6 g/dL (12.0-16.0); LYMPH % 21.1 %; LYMPH ABS # 0.96 K/uL (1.2-3.4); MEAN CELL VOLUME 89.6 fL (80-100); MEAN CORPUSCULAR HEMOGLOBIN 28.8 pg (25-34); MEAN CORPUSCULAR HGB CONC 32.1 g/dl (32-36); MEAN PLATELET VOLUME 10.5 fL (7.4-10.4); MONO % 16.1 %; MONO ABS # 0.73 K/uL (0.11-0.59); NEUT % 61.9 %; NEUT ABS # 2.81 K/uL (1.4-6.5); PLATELET COUNT 120 K/uL (130-400); RED CELL DISTRIBUTION WIDTH CV 17.1 % (11.5-14.5); RED CELL DISTRIBUTION WIDTH SD 56.4 fL (36.4-46.3); WHITE BLOOD COUNT 4.54 K/uL (4.8-10.8)
[2017-11-25 10:57] LABS: ALBUMIN 3.2 gm/dl (3.4-5.0); ALT/SGPT 20 U/L (12-78); AST/SGOT 38 U/L (15-37); BLOOD UREA NITROGEN 25 mg/dl (7-18); CARBON DIOXIDE 27 mmol/L (21-32); CREATININE 0.89 mg/dl (0.60-1.20); GLUCOSE 93 mg/dl (70-99); POTASSIUM 3.9 mmol/L (3.5-5.1); SODIUM 139 mmol/L (136-145)
[2017-11-25 11:01] LABS: ALKALINE PHOSPHATASE 58 U/L (45-117); TOTAL PROTEIN 6.9 gm/dl (6.4-8.2)
== END | disposition home or self-care (01) ==
LOC: C.LABSPEC 10:25
PROVIDERS: ATTEND Internal Medicine Hematology & Oncology
DX: C34.91 Malignant neoplasm of unspecified part of right bronchus or lung (principal)

== ENCOUNTER → 2017-11-25 | Outpatient (CLI) | payer BC ==
[~2017-11-25] MED LIST changes: +OPTIRAY 320 IV PRN
--- NOTE | 2017-11-25 14:50 | DIAGNOSTIC IMAGING REPORT ---
CT SCAN OF THE CHEST, ABDOMEN, AND PELVIS WITH IV CONTRAST CLINICAL HISTORY: Non-small cell lung cancer. Lymphoma. COMPARISON STUDY: PET/CT dated 09/30/2017. Chest CT scans dated 08/10/2017 and 06/11/2015. Abdominal CT dated 08/10/2017. TECHNIQUE: Following the IV administration of 119 of Optiray 320, CT scan of the chest, abdomen, and pelvis was performed from the thoracic inlet to the proximal femora. Images are reviewed in the axial, sagittal, and coronal planes. IV contrast was administered without complication. A dose lowering technique was utilized adhering to the principles of ALARA. CT DOSE: 438.91 mGy.cm FINDINGS: CHEST: Thyroid: Imaged portions of the thyroid gland are normal in size and attenuation. Thoracic aorta: There is atherosclerotic calcification of the thoracic aorta, which is normal in caliber and demonstrates 4-vessel variant arch anatomy. No dissection is seen. A left subclavian central venous infusion port is in place. Pulmonary vasculature: The pulmonary trunk is normal in caliber. There are no filling defects identified in the central pulmonary vessels to indicate pulmonary embolus. Note that this examination was not protocoled for evaluation of the pulmonary arteries. Heart: The patient is status post midline sternotomy. The heart is normal in size and without pericardial effusion. The coronary arteries are densely calcified. Lungs and pleural spaces: Mild emphysematous changes observed. An irregular right suprahilar lesion is similar in appearance to previous and measures up to 2.7 cm. There is miliary nodularity throughout both lungs, which is unchanged to minimally progressed as compared to 09/30/2017. The majority of these nodules measure less than 5 mm. A nodule in the left lower lobe seen on image #196 measures 12 mm. A right lower lobe nodule on image #156 measures 11 mm. Fibrosis/scarring is seen in the right middle lobe and lingula. No pleural effusion is identified. The trachea and central airways are patent. Mediastinum: There is no mediastinal lymphadenopathy. Nataly: Clear. Axillae: There is no axillary lymphadenopathy. Bony thorax: The skeletal structures are osteopenic. Degenerative change and mild hyperkyphosis are noted in the thoracic spine. No lytic or blastic lesions are identified. There are healed right anterior rib fractures. ABDOMEN AND PELVIS: Liver: The contrast-enhanced liver is normal in size, contour, and attenuation. There is minimal central intrahepatic or ductal dilatation. The hepatic veins and portal veins are patent. 2 hemangiomas of the right hepatic lobe are unchanged from prior studies. Gallbladder: Surgically absent noting clips in the gallbladder fossa. Spleen: Normal in size and attenuation. Pancreas: Unremarkable. Adrenal glands: Unremarkable. Kidneys: The contrast enhanced kidneys demonstrate cortical atrophy and are without hydronephrosis. There is mild. The renal collecting system bilaterally. The kidneys enhance symmetrically. Scattered subcentimeter cortical hypodensities likely represent cysts but are too small for definitive characterization. Abdominal vasculature: The abdominal aorta is normal in course and caliber noting moderate to advanced atherosclerotic calcification. Bowel: There is moderate to severe constipation. No bowel obstruction is seen. The appendix is not identified. Peritoneum: There is no intraperitoneal free air or abdominal ascites. Lymphadenopathy: None. Pelvic viscera: There is a tiny focus of gas within the bladder lumen. The bladder is otherwise normal as imaged. The uterus is surgically absent. No adnexal lesion is seen. Skeletal structures: The skeletal structures are osteopenic. There is moderate lumbosacral spondylosis. No lytic or blastic lesions are seen. IMPRESSION: 1. An irregular right suprahilar pulmonary lesion has not significantly changed from 09/30/2017 and is consistent with the patient's known lung cancer. 2. Miliary pulmonary nodules are similar in appearance to slightly progressed as compared to 09/30/2017 and this has clearly progressed from 08/10/2017. Differential considerations remain multifocal pulmonary metastatic disease versus an atypical infectious/inflammatory process. 3. Mild emphysema. 4. There is no evidence of metastatic disease in the abdomen or pelvis. 5. Moderate to severe constipation. 6. Additional findings as above. Electronically signed by: Han Bolanos M.D. 11/25/2017 2:49 PM Dictated Date/Time: 11/25/2017 2:26 PM
== END | disposition home or self-care (01) ==
LOC: C.CTS 13:22
PROVIDERS: ATTEND Internal Medicine Hematology & Oncology
DX: C34.91 Malignant neoplasm of unspecified part of right bronchus or lung (principal); K59.00 Constipation, unspecified

== ENCOUNTER → 2017-11-27 | Outpatient (CLI) | payer BC ==
[~2017-11-27] MED LIST changes: -OPTIRAY 320 IV PRN
--- NOTE | 2017-11-27 10:15 | DIAGNOSTIC IMAGING REPORT ---
R HIP UNILATERAL 2 VIEWS, L HIP UNILATERAL 2 VIEWS HISTORY: 72 years-old Female NON SMALL CELL LUNG CANCER, L HIP PAIN acute bilateral hip pain with history of lung carcinoma COMPARISON: CT abdomen and pelvis 11/25/2017, PET CT 09/30/2017 TECHNIQUE: 2 views of the bilateral hips for a total of 4 images FINDINGS: RIGHT: Mild osteoarthritis without acute fracture, dislocation or suspicious bone lesion. No avascular necrosis. Bones appear mildly demineralized. Phleboliths of the right hemipelvis. Retained enteric contrast within the rectum. Vascular calcifications are noted. Surgical clip projects over the central pelvis. LEFT: Bones appear mildly demineralized. Fracture or dislocation. Mild osteoarthritis. Retained enteric contrast throughout the colon. Vascular calcifications noted. No avascular necrosis. IMPRESSION: 1. No acute fracture, dislocation or suspicious bone lesion identified. 2. Mild osteoarthritis about the bilateral femoral acetabular joints. The above report was generated using voice recognition software. It may contain grammatical, syntax or spelling errors. Electronically signed by: Selvin Lundberg M.D. 11/27/2017 10:14 AM Dictated Date/Time: 11/27/2017 10:10 AM
== END | disposition home or self-care (01) ==
LOC: C.RAD 09:51
PROVIDERS: ATTEND Internal Medicine Hematology & Oncology
DX: C34.91 Malignant neoplasm of unspecified part of right bronchus or lung (principal); M25.552 Pain in left hip

== ENCOUNTER → 2017-12-07 | Outpatient (CLI) | payer BC ==
--- NOTE | 2017-12-07 13:08 | MAMMOGRAPHY REPORT ---
BILATERAL DIGITAL SCREENING MAMMOGRAM TOMOSYNTHESIS WITH CAD: 12/07/2017 CLINICAL HISTORY: Routine screening. TECHNIQUE: The study was acquired using full field digital technology and interpreted from soft copy. Breast tomosynthesis in addition to standard 2D mammography was performed. Current study was also ev aluated with a Computer Aided Detection (CAD) system. COMPARISON: Comparison is made to exams dated: 12/04/2016 mammogram, 12/03/2015 mammogram, 11/29/2014 leonardo mogram, 11/28/2013 mammogram, 11/25/2012 mammogram, and 11/25/2011 mammogram - [facility] BREAST COMPOSITION: There are scattered areas of fibroglandular density in both breasts. FINDINGS: There are numerous scattered benign coarse/rim calcifications in the breasts. The hub of a Port-A-Cath projects over the superior left pectoralis muscle on 1 of the MLO views. No suspicious m ass, architectural distortion or cluster of microcalcifications is seen. IMPRESSION: ACR BI-RADS CATEGORY 1: NEGATIVE There is no mammographic evidence of malignancy. A 1 year screening mammogram is recommended.( 019) The patient will receive written notification of the results. Some breast cancers are not detected with mammography. A negative mammographic report should not sebastian y biopsy if a clinically suggestive mass is present. Ana Stephens M.D. 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
== END | disposition home or self-care (01) ==
LOC: C.MAMM 10:08
PROVIDERS: ATTEND Internal Medicine
DX: Z12.31 Encounter for screening mammogram for malignant neoplasm of breast (principal)

== ENCOUNTER 2017-12-13 12:19 | Inpatient (IN) | payer BC, OTHER ==
[~2017-12-13] VITALS: Ht 147.3 cm; Wt 43.0 kg
[2017-12-13] MEDS ORDERED: SODIUM CHLORIDE 0.9% 1000ML 250 ML IV STA (13:23)
[2017-12-13] MEDS ORDERED: SODIUM CHLORIDE 0.9% 1000ML 1,000 ML IV STA (13:23)
[2017-12-13 13:49] LABS: BASO % 0.2 %; BASO ABS # 0.01 K/uL (0-0.2); EOS % 0.6 %; EOS ABS # 0.03 K/uL (0-0.5); HEMATOCRIT 33.6 % (37-47); HEMOGLOBIN 10.5 g/dL (12.0-16.0); IG# 0.01 K/uL (0.00-0.02); LYMPH % 16.4 %; LYMPH ABS # 0.89 K/uL (1.2-3.4); MEAN CELL VOLUME 92.6 fL (80-100); MEAN CORPUSCULAR HEMOGLOBIN 28.9 pg (25-34); MEAN CORPUSCULAR HGB CONC 31.3 g/dl (32-36); MEAN PLATELET VOLUME 10.4 fL (7.4-10.4); MONO % 8.7 %; MONO ABS # 0.47 K/uL (0.11-0.59); NEUT % 73.9 %; NEUT ABS # 4.01 K/uL (1.4-6.5); PLATELET COUNT 147 K/uL (130-400); RED CELL DISTRIBUTION WIDTH CV 17.9 % (11.5-14.5); RED CELL DISTRIBUTION WIDTH SD 60.4 fL (36.4-46.3); WHITE BLOOD COUNT 5.42 K/uL (4.8-10.8)
[2017-12-13 14:04] LABS: INR 0.9 (0.9-1.1)
[2017-12-13 14:10] LABS: PTT PATIENT 47.6 SECONDS (21.0-31.0)
[2017-12-13 14:15] LABS: ALBUMIN 2.8 gm/dl (3.4-5.0); ALKALINE PHOSPHATASE 55 U/L (45-117); ALT/SGPT 21 U/L (12-78); AST/SGOT 32 U/L (15-37); BLOOD UREA NITROGEN 26 mg/dl (7-18); CALCIUM 8.9 mg/dl (8.5-10.1); CARBON DIOXIDE 27 mmol/L (21-32); CKMB < 1.0 ng/ml (0.5-3.6); GLUCOSE 109 mg/dl (70-99); LIPASE 160 U/L (73-393); POTASSIUM 4.2 mmol/L (3.5-5.1); SODIUM 138 mmol/L (136-145); TOTAL PROTEIN 6.3 gm/dl (6.4-8.2)
--- NOTE | 2017-12-13 14:24 | DIAGNOSTIC IMAGING REPORT ---
CHEST ONE VIEW PORTABLE CLINICAL HISTORY: Chest pain. Non-small cell lung cancer and lymphoma. COMPARISON STUDY: Chest CT November 25, 2017. FINDINGS: Left subclavian [id number] is in place. There are median sternotomy wires and cholecystectomy clips. An irregular right upper lobe mass-like density is unchanged since prior CT. Lower lung predominant reticulonodular interstitial thickening persists. Cardiomegaly is unchanged. There is no pneumothorax. No pleural effusion is noted. IMPRESSION: 1. No change in appearance of the chest with redemonstration of an irregular right upper lobe lesion consistent with patient's known lung cancer. 2. No change in lower lobe predominant reticulonodular interstitial thickening which remains indeterminate. Differential considerations include pulmonary metastatic disease versus an atypical infectious/inflammatory etiology. Electronically signed by: Remington Melvin M.D. 12/13/2017 2:23 PM Dictated Date/Time: 12/13/2017 2:20 PM
--- NOTE | 2017-12-13 14:35 | DIAGNOSTIC IMAGING REPORT ---
CT OF THE HEAD WITHOUT CONTRAST CLINICAL HISTORY: weakness, hazelky COMPARISON STUDY: Head CT August 10, 2017. TECHNIQUE: Helical axial images of the head were obtained without IV contrast. Automated exposure control was utilized for the study. A dose lowering technique was utilized adhering to the principles of ALARA. FINDINGS: No acute intracranial hemorrhage, midline shift or mass is present. Ventricular system is normal. Basilar cisterns are patent. There are no extra-axial collections. There are no findings to suggest acute dural sinus thrombosis or acute territorial infarct. Mild white matter hypodensity suggests small vessel disease. There are no significant calvarial abnormalities. Visualized portions of the sinuses and the mastoid air cells are clear. IMPRESSION: No acute intracranial findings. Electronically signed by: Remington Melvin M.D. 12/13/2017 2:34 PM Dictated Date/Time: 12/13/2017 2:32 PM
[2017-12-13] MEDS ORDERED: PROCHLORPERAZINE MALEATE 10 MG TAB PO PRN (19:30)
[2017-12-13] MEDS ORDERED: ACETAMINOPHEN 325 MG TAB PO PRN (19:30)
[2017-12-13] MEDS ORDERED: ONDANSETRON INJ 2 MG/ML 2 ML VIAL IV PRN (19:30)
[2017-12-13] MEDS ORDERED: NITROGLYCERIN 0.4 MG SL PER TAB CHARGE UT PRN (19:30)
[2017-12-13] MEDS ORDERED: PHARMACIST DISCHARGE MED REC CONSULT PRN (19:30)
[2017-12-13] MEDS ORDERED: MAGNESIUM HYDROXIDE SUSP 30 ML UDC PO PRN (19:30)
[2017-12-13] MEDS ORDERED: EPINEPHRINE ADULT AUTO-INJECT 0.3 MG SYR IM PRN (19:30)
[2017-12-13] MEDS ORDERED: NITROGLYCERIN 0.4 MG SL PER TAB CHARGE SL PRN (19:30)
--- NOTE | 2017-12-13 19:43 | EMERGENCY ROOM VISIT NOTE ---
History Report prepared by Cornelius: Rosalia Yepez Under the Supervision of: Dr. Delroy Braun M.D. First contact with patient: 13:15 Chief Complaint: ILLNESS Stated Complaint: POSSIBLE SEIZURE History of Present Illness The patient is a 72 year old female who presents to the Emergency Room with complaints of an episode of a possible seizure that occurred around 1130 today. The patient states that she remembers eating lunch at a restaurant with her and starting to take a bite when she suddenly felt pain in the right side of her chest. She states that she does not remember anything that happened afterward. Per , the patient started shaking and became "locked up." He notes that this did not last for long. The patient reports that she felt fine this morning and had no recent illness. She notes that she currently feels okay. She denies any more shortness of breath than usual, abdominal pain, hematochezia, melena, pain/swelling in her legs, urinary symptoms, vision changes, and fever. The reports that the patient took 4 doses of Nitroglycerin this past week for chest pain, which she normally does not do. The patient notes that she has been receiving treatment for stage 4 non-small cell lung cancer since February and takes medication for it every day. The patient reports a history of bursitis and CABG, and she states that she has a port. She denies being diabetic. Source of History: patient, spouse/significant other Onset: around 1130 today Position: other (generalized) Quality: other (seizure) Timing: other (episode) Associated Symptoms: + chest pain (right-sided), No fevers, No SOB, No abdominal pain, No melena, No hematochezia, No urinary symptoms Note: Additional symptoms: shakiness Denies: leg pain/swelling, vision changes Review of Systems See HPI for pertinent positives & negatives. A total of 10 systems reviewed and were otherwise negative. 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 Nurse's notes were reviewed and I agree with. Family History Diabetes mellitus Hypertension Social History Smoking Status: Never Smoker Alcohol Use: none Drug Use: none Marital Status: Housing Status: lives with family Occupation Status: unemployed Current/Historical Medications Scheduled Albuterol Sulfate (Proair Respiclick), 2 PUFFS INH QID Aspirin (Aspirin 81), 81 MG PO QAM Calcium Carbonate-Cholecalcife (Caltrate 600+D), 1 TAB PO BID Cevimeline Hcl (Cevimeline Hcl), 30 MG PO TID Erlotinib (Tarceva), 50 MG PO QPM Immune Globulin (Human) Subcut (Hizentra), 8 GM INJ WK Isosorbide Mononitrate (Imdur Ext Rel), 60 MG PO QAM Magnesium (Magnesium 250 mg), 1 TAB PO QAM Metoprolol Tartrate (Lopressor) (Lopressor), 75 MG PO BID Multivitamins/Minerals (Mvi With Minerals), 1 TAB PO QPM Ondansetron (Ondansetron HCl), 4 MG SL Q6H Potassium Chloride Microencaps (Potassium Chloride Cr), 10 MEQ PO TID Probiotic Product (Probiotic), 1 TAB PO QPM Raloxifene HCl (Raloxifene Hydrochloride), 60 MG PO QPM Ranolazine (Ranexa), 500 MG PO Q12 Simvastatin (Zocor), 40 MG PO HS Scheduled PRN Epinephrine (Epipen), 0.3 MG IM UD PRN for ALLERGIC REACTION Nitroglycerin (Nitrostat), 0.4 MG UT UD PRN for Chest Pain Prochlorperazine Maleate (Compazine), 10 MG PO for Nausea or Vomiting Allergies Coded Allergies: No Known Allergies (Unverified , 07/02/17) Physical Exam Vital Signs Date Time Temp Pulse Resp B/P (MAP) Pulse Ox O2 Delivery O2 Flow Rate FiO2 12/13/17 18:00 69 16 159/88 98 Room Air 12/13/17 17:26 69 12/13/17 16:00 74 18 137/71 97 Room Air 12/13/17 14:12 69 18 139/85 96 Room Air 12/13/17 13:23 94 Room Air 12/13/17 13:15 72 12/13/17 12:26 36.4 74 18 134/77 93 Room Air Physical Exam General: Non-ill appearing older female in no acute distress, breathing comfortably on room air. Normal speech HEENT: Normal cephalic atraumatic. Pupils are equal round and reactive to light. Extraocular movements are intact. Oropharynx is pink with moist mucous membranes. No swelling of the mouth lips or tongue. Neck: Supple with a midline trachea. No meningeal signs or stiffness, no JVD or bruits. No Stridor. Chest: Clear to auscultation bilaterally. No wheezes or rhonchi. No increased work of breathing. Heart: regular rate and rhythm. A port in left chest. Abdomen: Soft nontender, nondistended without rebound guarding or rigidity. Extremities: No cyanosis clubbing or edema. No calf tenderness or assymetry Spine/Back. Non tender to palpation. No CVA tenderness Skin: Good turgor without rashes. Neurologic exam: Cranial nerves two through 12 are intact. Motor and sensation are intact and symmetrical throughout. Medical Decision & Procedures Laboratory Results 12/13/17 13:36 Red Blood Count 3.63, Mean Corpuscular Volume 92.6, Mean Corpuscular Hemoglobin 28.9, Mean Corpuscular Hemoglobin Concent 31.3, Mean Platelet Volume 10.4, Neutrophils (%) (Auto) 73.9, Lymphocytes (%) (Auto) 16.4, Monocytes (%) (Auto) 8.7, Eosinophils (%) (Auto) 0.6, Basophils (%) (Auto) 0.2, Neutrophils # (Auto) 4.01, Lymphocytes # (Auto) 0.89, Monocytes # (Auto) 0.47, Eosinophils # (Auto) 0.03, Basophils # (Auto) 0.01 12/13/17 13:36 Test 12/13/17 13:36 12/13/17 17:12 White Blood Count 5.42 K/uL (4.8-10.8) Red Blood Count 3.63 M/uL (4.2-5.4) Hemoglobin 10.5 g/dL (12.0-16.0) Hematocrit 33.6 % (37-47) Mean Corpuscular Volume 92.6 fL (80-100) Mean Corpuscular Hemoglobin 28.9 pg (25-34) Mean Corpuscular Hemoglobin Concent 31.3 g/dl (32-36) Platelet Count 147 K/uL (130-400) Mean Platelet Volume 10.4 fL (7.4-10.4) Neutrophils (%) (Auto) 73.9 % Lymphocytes (%) (Auto) 16.4 % Monocytes (%) (Auto) 8.7 % Eosinophils (%) (Auto) 0.6 % Basophils (%) (Auto) 0.2 % Neutrophils # (Auto) 4.01 K/uL (1.4-6.5) Lymphocytes # (Auto) 0.89 K/uL (1.2-3.4) Monocytes # (Auto) 0.47 K/uL (0.11-0.59) Eosinophils # (Auto) 0.03 K/uL (0-0.5) Basophils # (Auto) 0.01 K/uL (0-0.2) RDW Standard Deviation 60.4 fL (36.4-46.3) RDW Coefficient of Variation 17.9 % (11.5-14.5) Immature Granulocyte % (Auto) 0.2 % Immature Granulocyte # (Auto) 0.01 K/uL (0.00-0.02) Prothrombin Time 9.8 SECONDS (9.0-12.0) Prothromb Time International Ratio 0.9 (0.9-1.1) Activated Partial Thromboplast Time 47.6 SECONDS (21.0-31.0) Partial Thromboplastin Ratio 1.8 Anion Gap 8.0 mmol/L (3-11) Est Creatinine Clear Calc Drug Dose 32.3 ml/min Estimated GFR () 64.7 Estimated GFR (Non- 55.8 BUN/Creatinine Ratio 25.9 (10-20) Calcium Level 8.9 mg/dl (8.5-10.1) Total Bilirubin 0.6 mg/dl (0.2-1) Direct Bilirubin 0.2 mg/dl (0-0.2) Aspartate Amino Transf (AST/SGOT) 32 U/L (15-37) Alanine Aminotransferase (ALT/SGPT) 21 U/L (12-78) Alkaline Phosphatase 55 U/L (45-117) Total Creatine Kinase 28 U/L (26-192) Creatine Kinase MB < 1.0 ng/ml (0.5-3.6) Creatine Kinase MB Ratio (0-3.0) Total Protein 6.3 gm/dl (6.4-8.2) Albumin 2.8 gm/dl (3.4-5.0) Lipase 160 U/L (73-393) Bedside Troponin I < 0.030 ng/ml (0-0.045) Laboratory studies as stated above per my review. Medications Administered Medications (Trade) Dose Ordered Sig/Jimmy Route Start Time Stop Time Status Last Admin Dose Admin Sodium Chloride 250 ml @ 999 mls/hr Q16M STAT IV 12/13/17 13:23 12/13/17 13:38 DC 12/13/17 13:42 999 MLS/HR Sodium Chloride 1,000 ml @ 100 mls/hr Q10H STAT IV 12/13/17 13:23 12/13/17 23:22 12/13/17 13:42 100 MLS/HR ECG Per My Interpretation Indication: other (seizure-like activity accompanied by chest pain) Rate (beats per minute): 72 Rhythm: normal sinus Findings: no acute ischemic change, no ectopy Comparison ECG Date: 08/10/17 Change: anterior T wave inversions are less pronounced 2nd EKG: normal sinus rhythm, 72 bpm, no ischemia, no ectopy, anterior T wave inversions are slightly more pronounced than the 1st EKG. ED Course 1324: Past medical records reviewed. The patient was evaluated in room C12B, and a complete history and physical examination were performed. 1644: I checked on the patient and the patient stated that she wants to go home but will wait for us to do a second Troponin. 1809: Discussed the patient's case with Dr. Olsen - Hospitalist Resident, [facility]. The patient will be evaluated for further management. Upon reevaluation, the patient is resting. I discussed the results and treatment plan with the patient. She verbalized agreement of the treatment plan. The patient will be evaluated for further management by Dr. Olsen. Medical Decision Differentials include arrhythmia, acute coronary syndrome, cancer related complications, infection, and electrolyte or metabolic abnormality. This patient comes in as described above. She was placed in room C 12. She had episode today where she had altered level consciousness and shaking. This lasted briefly just before eating, there was no choking. She would respond and was not completely unresponsive. She has had several episodes of chest pain over last week and took nitroglycerin 4 times which is unusual for her as well. She does have a complex medical history. IV access established. EKG was obtained and multiple blood testing was obtained. her EKG does not show any acute changes compared to old her troponin was negative. I did a second EKG and there are some T-wave inversions anteriorly which look more pronounced in the first EKG however compared to the old they are unchanged her second troponin was also negative. Chest x-ray shows chronic changes with her lung cancer. There was no acute electrolyte or metabolic abnormalities. She has remained stable. I do not think she likely had a seizure. The CAT scan of her head is unremarkable. It may have been more of an arrhythmia or vasovagal episode. I am concerned with her chest pain that this could have been cardiac related as well. I did recommend she be admitted/observe for further inpatient treatment and evaluation of consult the hospitalist for this. The patient and her were happy with the plan. Medication Reconcilliation Current Medication List: was personally reviewed by me Blood Pressure Screening Patient's blood pressure: Elevated blood pressure (will be monitored by hospitalist) Consults Time Called: 1807 Consulting Physician: Dr. Olsen - Hospitalist Resident, [facility] Returned Call: [phone] Discussed the patient's case with Dr. Olsen - Hospitalist Resident, [facility]. The patient will be evaluated for further management. Impression Primary Impression: Syncope and Collapse Additional Impression: Chest pain Scribe Attestation The scribe's documentation has been prepared under my direction and personally reviewed by me in its entirety. I confirm that the note above accurately reflects all work, treatment, procedures, and medical decision making performed by me. Departure Information Dispostion Being Evaluated By Hospitalist Referrals Evin Tinajero M.D. (PCP) Patient Instructions My [facility] Health Problem Qualifiers
--- NOTE | 2017-12-13 19:59 | History and Physical ---
History & Physical Date & Time of Service: Dec 13, 2017 at 19:45 Chief Complaint: Possible Seizure Primary Care Physician: Evin Tinajero M.D. History of Present Illness Source: patient The patient is a 72 year old female with a past medical history of Gastric Lymphoma (Remission), Non-Small Cell Lung CA with Metastatic Flavio Disease, CAD S/P CABG x 4 Vessels, HTN, HLD, Chronic Angina, Chronic Cough, ANTONIETTA, Immunoglobulin Deficiency, and Sjogrens who presents to the ED after an episode of AMS and seizure like activity this afternoon. The patient was out for lunch with her grandchildren when she went to put food in her mouth with a spoon and suddenly could not move and froze. She states she does not recall the events that happened during the episode although denies blacking out and states she just could not move or speak. She also states her left arm began shaking uncontrollably during the episode as well. The entire series of events lasted less than a minute according to her estimation, and thereafter had acute confusion and was having staring episodes. After a few minutes she returned to her baseline at which point her family decided to bring her to the emergency department. The patient also appreciates that her family has recently noticed a left sided facial droop. She is unsure exactly how long this has been going on but thinks at least a few days and it is not acute. She does appreciate a family history of strokes in her paternal grandfather and son (at age 42). The patient also has a fairly significant cardiac history and has been having ongoing episodes of chest discomfort since the beginning of November. She states she has had 4 episodes in total requiring NTG. The episodes are sudden, 8/10, pressure like sensation, substernal, associated back discomfort, with shortness of breath lasting a minute or two and resolving with NTG use. She states during her last follow up with Dr. Tian a month ago she was doing well, although was not having any chest pain at that time. Her chest pain is similar to that experienced prior to her CABG although less severe. She also appreciates similar chest pressure with exertion including walking up the stairs, although with leisurely walking and at rest she does not experience the discomfort. She denies any chest discomfort, shortness of breath, palpitations, shoulder pain, diaphoresis, or dizziness at this time. Past Medical/Surgical History Medical Problems: (1) Acute bronchitis (2) ACUTE BRONCHITIS WITH CHRONIC LUNG DIASE. EXACE., CAD, NHL (3) Acute bronchopneumonia (4) Acute exacerbation of chronic obstructive pulmonary disease (COPD) (5) ASHD (arteriosclerotic heart disease) (6) Autoimmune hepatitis (7) B-cell lymphoma of extranodal site (8) B-cell lymphoma of solid organ (9) Bilateral bronchopneumonia (10) Bilateral pneumonia (11) Bronchopneumonia (12) BRONCOPNEUMONIA ORG NOS (13) Chest pain (14) Chest wall contusion (15) Common bile duct dilation (16) Coronary artery bypass grafts x 4 (17) Coronary artery disease (18) Dehydration (19) Diarrhea due to drug (20) Elevated troponin (21) Elevated troponin (22) Epigastric abdominal pain (23) Fall (24) FALL. LEFT RIB PAIN (25) Fever (26) Finger fracture, left (27) HTN (hypertension) (28) Hypercalcemia (29) Hyperlipemia (30) Hypomagnesemia (31) Hypothyroidism Nos (32) Hypoxia (33) Immunodeficiency (34) Intractable abdominal pain (35) Intractable nausea and vomiting (36) INTRACTABLE NAUSEA/VOMIT, LYMPHOMA (37) Kidney stones (38) Lymphedema (39) Mycobacterium avium-intracellulare infection (40) Non-small cell lung cancer (NSCLC) (41) NSTEMI (non-ST elevated myocardial infarction) (42) Osteoporosis Nec (43) Pneumonia (44) Pneumonitis (45) Precordial chest pain (46) Pulmonary infection (47) Shortness of breath on exertion (48) Sjogren's disease (49) Stable angina (50) Syncope (51) Syncope (52) Syncope and Collapse (53) TIA (transient ischemic attack) (54) Unsteady gait (55) URI (upper respiratory infection) (56) Weakness Surgical Problems: (1) H/O: hysterectomy Family History Diabetes mellitus Hypertension Social History Smoking Status: Never Smoker Drug Use: none Marital Status: Housing status: lives with family Occupational Status: unemployed Immunizations History of Influenza Vaccine: Yes Influenza Vaccine Date: Jan 10, 2013 History of Tetanus Vaccine?: Yes Tetanus Immunization Date: Aug 17, 2008 History of Pneumococcal: Yes Pneumococcal Date: Feb 16, 2009 History of Hepatitis B Vaccine: No Allergies Coded Allergies: No Known Allergies (Unverified , 07/02/17) Home Medications Scheduled Albuterol Sulfate (Proair Respiclick), 2 PUFFS INH QID Aspirin (Aspirin 81), 81 MG PO QAM Calcium Carbonate-Cholecalcife (Caltrate 600+D), 1 TAB PO BID Cevimeline Hcl (Cevimeline Hcl), 30 MG PO TID Erlotinib (Tarceva), 50 MG PO QPM Immune Globulin (Human) Subcut (Hizentra), 8 GM INJ WK Isosorbide Mononitrate (Imdur Ext Rel), 60 MG PO QAM Magnesium (Magnesium 250 mg), 1 TAB PO QAM Metoprolol Tartrate (Lopressor) (Lopressor), 75 MG PO BID Multivitamins/Minerals (Mvi With Minerals), 1 TAB PO QPM Ondansetron (Ondansetron HCl), 4 MG SL Q6H Potassium Chloride Microencaps (Potassium Chloride Cr), 10 MEQ PO TID Probiotic Product (Probiotic), 1 TAB PO QPM Raloxifene HCl (Raloxifene Hydrochloride), 60 MG PO QPM Ranolazine (Ranexa), 500 MG PO Q12 Simvastatin (Zocor), 40 MG PO HS Scheduled PRN Epinephrine (Epipen), 0.3 MG IM UD PRN for ALLERGIC REACTION Nitroglycerin (Nitrostat), 0.4 MG UT UD PRN for Chest Pain Prochlorperazine Maleate (Compazine), 10 MG PO for Nausea or Vomiting Review of Systems Constitutional: No fever, No chills, No sweats, No weakness, No fatigue Respiratory: No cough, No sputum, No wheezing, No shortness of breath, No dyspnea on exertion Cardiovascular: No chest pain, No orthopnea, No palpitations Abdomen: No pain, No nausea, No vomiting, No diarrhea, No constipation Musculoskeletal: No joint pain, No swelling, No calf pain Genitourinary - Female: No dysuria, No urinary frequency, No urinary urgency Endocrine: No fatigue, No excessive urination Physical Exam Vital Signs Date Time Temp Pulse Resp B/P (MAP) Pulse Ox O2 Delivery O2 Flow Rate FiO2 12/13/17 18:00 69 16 159/88 98 Room Air 12/13/17 17:26 69 12/13/17 16:00 74 18 137/71 97 Room Air 12/13/17 14:12 69 18 139/85 96 Room Air 12/13/17 13:23 94 Room Air 12/13/17 13:15 72 12/13/17 12:26 36.4 74 18 134/77 93 Room Air General Appearance: WD/WN, no apparent distress, + thin Head: normocephalic, atraumatic Eyes: normal inspection, sclerae normal Neck: supple, no carotid bruits Respiratory/Chest: chest non-tender, lungs clear, normal breath sounds, no respiratory distress Cardiovascular: regular rate, rhythm, no edema, no gallop, no murmur Abdomen/GI: normal bowel sounds, non tender, soft Extremities/Musculoskelatal: no calf tenderness, no pedal edema Neurologic/Psych: no motor/sensory deficits, alert, oriented x 3 Diagnostics Laboratory Results Results Past 24 Hours Test 12/13/17 13:23 12/13/17 13:36 12/13/17 13:43 12/13/17 17:12 Range/Units Creatine Kinase MB Ratio 0-3.0 White Blood Count 5.42 4.8-10.8 K/uL Red Blood Count 3.63 4.2-5.4 M/uL Hemoglobin 10.5 12.0-16.0 g/dL Hematocrit 33.6 37-47 % Mean Corpuscular Volume 92.6 80-100 fL Mean Corpuscular Hemoglobin 28.9 25-34 pg Mean Corpuscular Hemoglobin Concent 31.3 32-36 g/dl Platelet Count 147 130-400 K/uL Mean Platelet Volume 10.4 7.4-10.4 fL Neutrophils (%) (Auto) 73.9 % Lymphocytes (%) (Auto) 16.4 % Monocytes (%) (Auto) 8.7 % Eosinophils (%) (Auto) 0.6 % Basophils (%) (Auto) 0.2 % Neutrophils # (Auto) 4.01 1.4-6.5 K/uL Lymphocytes # (Auto) 0.89 1.2-3.4 K/uL Monocytes # (Auto) 0.47 0.11-0.59 K/uL Eosinophils # (Auto) 0.03 0-0.5 K/uL Basophils # (Auto) 0.01 0-0.2 K/uL RDW Standard Deviation 60.4 36.4-46.3 fL RDW Coefficient of Variation 17.9 11.5-14.5 % Immature Granulocyte % (Auto) 0.2 % Immature Granulocyte # (Auto) 0.01 0.00-0.02 K/uL Prothrombin Time 9.8 9.0-12.0 SECONDS Prothromb Time International Ratio 0.9 0.9-1.1 Activated Partial Thromboplast Time 47.6 21.0-31.0 SECONDS Partial Thromboplastin Ratio 1.8 Sodium Level 138 136-145 mmol/L Potassium Level 4.2 3.5-5.1 mmol/L Chloride Level 103 98-107 mmol/L Carbon Dioxide Level 27 21-32 mmol/L Anion Gap 8.0 3-11 mmol/L Blood Urea Nitrogen 26 7-18 mg/dl Creatinine 1.00 0.60-1.20 mg/dl Est Creatinine Clear Calc Drug Dose 32.3 ml/min Estimated GFR () 64.7 Estimated GFR (Non- 55.8 BUN/Creatinine Ratio 25.9 10-20 Random Glucose 109 70-99 mg/dl Calcium Level 8.9 8.5-10.1 mg/dl Total Bilirubin 0.6 0.2-1 mg/dl Direct Bilirubin 0.2 0-0.2 mg/dl Aspartate Amino Transf (AST/SGOT) 32 15-37 U/L Alanine Aminotransferase (ALT/SGPT) 21 12-78 U/L Alkaline Phosphatase 55 45-117 U/L Total Creatine Kinase 28 26-192 U/L Creatine Kinase MB < 1.0 0.5-3.6 ng/ml Total Protein 6.3 6.4-8.2 gm/dl Albumin 2.8 3.4-5.0 gm/dl Lipase 160 73-393 U/L Bedside Troponin I < 0.030 < 0.030 0-0.045 ng/ml Test 12/13/17 19:27 Range/Units Impression Assessment and Plan The patient is a 72 year old female with a past medical history of Gastric Lymphoma (Remission), Non-Small Cell Lung CA with Metastatic Flavio Disease, CAD S/P CABG x 4 Vessels, HTN, HLD, Chronic Angina, Chronic Cough, ANTONIETTA, Immunoglobulin Deficiency, and Sjogrens who presents to the ED after an episode of AMS and seizure like activity this afternoon TIA - CT Head: No acute intracranial abnormalities - MRI Brain Combo - Consult Neurology - Continue home Aspirin and Statin - Neuro checks q4h - PT/OT - Speech Evaluation - UA and Urine Culture - Admit Telemetry Stable Angina with history of CAD s/p CABG x 4 - Trop < 0.015 --> Trend q6h - EKG: NSR, No ST changes, old T wave inversion with no change from previous EKG - Last ECHO 06/2017: * Compared to an echocardiogram of April 17, 2017 the mid apical anterior, anteroseptal, and septal wall motion abnormalities have markedly improved. The overall LV systolic function is now normal. * Aortic valve sclerosis mild, without significant aortic valvular stenosis. * EF 65-70% - Stress Echo ordered - Consult Cardiology - Follows as outpatient with Dr. Tian - Monitor of Tele overnight - Continue home Lopressor, Imdur, Aspirin, and Simvastatin - Currently on Ranexa to treat chronic chest pain - NTG PRN for CP Non-Small Cell Lung CA with Metastatic Flavio Disease/ANTONIETTA/Chronic Cough: - Albuterol 2 puffs QID - Tarceva 50 mg daily (Pharmacy must fill, Non-formulary) Sjogrens - Cevimeline 30 mg TID (Pharmacy must fill, Non-formulary) DVT - SCD Code Status - Full Resuscitation Resuscitation Status Full Code VTE Prophylaxis Will order VTE Prophylaxis: Yes Resident Tracking Resident Involvement: Resident Care Provided Care Provided: Adult Hospital Medicine History Patient seen and examined, chart reviewed, case discussed with Dr. Olsen and I agree with his assessment and plan as documented above. Patient is a 72yo female with history of gastric lymphoma in remission, NSCLC on chemotherapy, CAD s/p 4V CABG, HTN, HLP presenting with an episode of AMS this afternoon. She was having lunch with her grandchildren when she froze, couldn't move or speak then developed uncontrolled shaking of her left arm. Family noted a left facial droop as well. Patient does not fully recollect the event. Presently she is without complaint - no MARTE, dizziness, numbness/tingling/weakness. On physical exam she is afebrile, hemodynamically stable with mild hypetension AA&O, pleasant, NAD HEENT: NC/AT, nares patent, MMM, neck supple Heart: +S1/S2, regular, no m/r/g Lungs: CTA no rales/rhonchi/wheezes Abd: +BS, soft, NT/ND Ext: warm, no edema, 2+ pulses Neuro: grossly intact Labs and images reviewed, significant for stable normochromic normocytic anemia , mildly elevated BUN at 26, Albumin of 2.8. CXR with stable findings consistent with known malignancy and CT head unremarkable Assessment/Plan: 72yo female presenting with acute neurologic episode, concerning for complex focal seizure vs TIA -Admit to telemetry, Neuro checks -MRI combo -Stress echocardiogram for angina symptoms -Remainder of plan as above
[2017-12-13 20:45] VITALS: BP 167/80; PULSE 75; TEMP 36.9; O2SAT 96; Ht 147.3 cm; Wt 43.0 kg
[2017-12-13] MEDS ORDERED: RALOXIFENE 60 MG TAB PO SCH (21:00)
[2017-12-13] MEDS ORDERED: SIMVASTATIN 40 MG TAB PO SCH (21:00)
[2017-12-13] MEDS ORDERED: ERLOTINIB PO SCH (21:00)
[2017-12-13] MEDS ORDERED: CEROVITE ADV FORMULA TAB PO SCH (21:00)
[2017-12-13] MEDS: ALBUTEROL HFA 8 GM INHALER INH SCH (22:56)
[2017-12-13] MEDS: POTASSIUM CHLORIDE 10 MEQ TABCR PO SCH (22:56)
[2017-12-13] MEDS: RANOLAZINE 500 MG ER TAB PO SCH (22:56)
[2017-12-13] MEDS: METOPROLOL TARTRATE 25 MG TAB PO SCH (22:57)
[2017-12-14] MEDS ORDERED: CEVIMELINE~ORDER AWAITING ACTION SCH
[2017-12-14 00:45] VITALS: O2SAT 96
[2017-12-14 00:54] VITALS: BP 147/96; PULSE 69; TEMP 36.8; O2SAT 95
[2017-12-14] MEDS ORDERED: GADAVIST IV PRN (03:00)
[2017-12-14 03:44] VITALS: BP 123/75; PULSE 69; TEMP 36.6; O2SAT 96
[2017-12-14 05:14] LABS: BASO % 0.2 %; BASO ABS # 0.01 K/uL (0-0.2); EOS % 0.9 %; EOS ABS # 0.04 K/uL (0-0.5); HEMATOCRIT 31.7 % (37-47); HEMOGLOBIN 10.1 g/dL (12.0-16.0); IG# 0.01 K/uL (0.00-0.02); LYMPH % 17.3 %; LYMPH ABS # 0.78 K/uL (1.2-3.4); MEAN CELL VOLUME 91.9 fL (80-100); MEAN CORPUSCULAR HEMOGLOBIN 29.3 pg (25-34); MEAN CORPUSCULAR HGB CONC 31.9 g/dl (32-36); MEAN PLATELET VOLUME 9.4 fL (7.4-10.4); MONO ABS # 0.63 K/uL (0.11-0.59); NEUT % 67.4 %; NEUT ABS # 3.04 K/uL (1.4-6.5); PLATELET COUNT 123 K/uL (130-400); RED CELL DISTRIBUTION WIDTH CV 17.8 % (11.5-14.5); WHITE BLOOD COUNT 4.51 K/uL (4.8-10.8)
[2017-12-14 05:43] LABS: CALCIUM 8.1 mg/dl (8.5-10.1); CREATININE 0.86 mg/dl (0.60-1.20); POTASSIUM 3.8 mmol/L (3.5-5.1)
[2017-12-14 06:55] LABS: HEMOGLOBIN A1C 5.7 % (4.5-5.6)
--- NOTE | 2017-12-14 07:02 | DIAGNOSTIC IMAGING REPORT ---
BRAIN COMBO HISTORY: 72 years-old Female Stroke acute strokelike symptoms with possible seizure COMPARISON: CT head 12/13/2017 TECHNIQUE: Multiplanar multisequence MRI of the brain was obtained both with and without the use of 4 mL Gadavist. Seizure protocol was utilized. FINDINGS: There is no restricted diffusion to suggest acute or subacute infarction. The midline structures including the corpus callosum, brainstem, optic chiasm, pituitary and pineal glands appear unremarkable the sagittal T1 series. There is no cerebellar tonsillar herniation. Degenerative changes about the imaged cervical spine with likely degenerative related grade 1 anterolisthesis of C3 on C4. Mild age-related atrophy. No acute intracranial hemorrhage, midline shift, abnormal extra-axial collections, hydrocephalus or intracranial mass. Mild patchy multifocal areas of T2/FLAIR prolongation noted about the subcortical and periventricular white matter of the cerebral hemispheres bilaterally. No acute seizure focus identified. 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 No evidence of mesial temporal sclerosis, russo matter heterotopia or cortical dysplasia. There is no abnormal intra-axial or extra-axial enhancement identified. No large mastoid effusion. Paranasal sinuses are generally clear. The orbits, skull and soft tissues are unremarkable. IMPRESSION: 1. No acute intracranial abnormality. 2. No acute infarction or abnormal enhancement. 3. Mild age-related atrophy with chronic microvascular ischemic changes. The above report was generated using voice recognition software. It may contain grammatical, syntax or spelling errors. Electronically signed by: Selvin Lundberg M.D. 12/14/2017 7:01 AM Dictated Date/Time: 12/14/2017 6:52 AM
[2017-12-14 07:30] VITALS: BP 136/78; PULSE 72; TEMP 36.6; O2SAT 95
--- NOTE | 2017-12-14 08:12 | Progress Note ---
Subjective Date of Service: Dec 14, 2017. Problem List Medical Problems: (1) Acute bronchitis Status: Acute (2) ACUTE BRONCHITIS WITH CHRONIC LUNG DIASE. EXACE., CAD, NHL Status: Acute (3) Acute bronchopneumonia Status: Acute (4) Acute exacerbation of chronic obstructive pulmonary disease (COPD) Status: Acute (5) Bilateral bronchopneumonia Status: Acute (6) Bilateral pneumonia Status: Acute (7) Bronchopneumonia Status: Acute (8) Chest pain Status: Acute (9) Chest pain Status: Acute (10) Chest wall contusion Status: Acute (11) Common bile duct dilation Status: Acute (12) Coronary artery disease Status: Chronic (13) Elevated troponin Status: Acute (14) Elevated troponin Status: Acute (15) Epigastric abdominal pain Status: Acute (16) Fall Status: Acute (17) FALL. LEFT RIB PAIN Status: Acute (18) Fever Status: Acute (19) Finger fracture, left Status: Acute (20) Hypomagnesemia Status: Acute (21) INTRACTABLE NAUSEA/VOMIT, LYMPHOMA Status: Acute (22) Pneumonia Status: Acute (23) Precordial chest pain Status: Acute (24) Shortness of breath on exertion Status: Acute (25) Syncope Status: Acute (26) URI (upper respiratory infection) Status: Acute (27) Weakness Status: Acute Objective Vital Signs Date Time Temp Pulse Resp B/P (MAP) Pulse Ox O2 Delivery O2 Flow Rate FiO2 12/14/17 07:30 36.6 72 18 136/78 (97) 95 Room Air 12/14/17 03:44 36.6 69 18 123/75 (91) 96 Room Air 12/14/17 00:54 36.8 69 20 147/96 (113) 95 Room Air 12/14/17 00:45 96 Room Air 12/13/17 20:45 36.9 75 18 167/80 96 Room Air 12/13/17 20:15 82 20 150/64 98 12/13/17 18:00 69 16 159/88 98 Room Air 12/13/17 17:26 69 12/13/17 16:00 74 18 137/71 97 Room Air 12/13/17 14:12 69 18 139/85 96 Room Air 12/13/17 13:23 94 Room Air 12/13/17 13:15 72 8/19/18 12:26 36.4 74 18 134/77 93 Room Air Laboratory Results Last 24 Hours Test 12/13/17 13:23 12/13/17 13:36 12/13/17 13:43 12/13/17 17:12 Creatine Kinase MB Ratio White Blood Count 5.42 K/uL Red Blood Count 3.63 M/uL Hemoglobin 10.5 g/dL Hematocrit 33.6 % Mean Corpuscular Volume 92.6 fL Mean Corpuscular Hemoglobin 28.9 pg Mean Corpuscular Hemoglobin Concent 31.3 g/dl Platelet Count 147 K/uL Mean Platelet Volume 10.4 fL Neutrophils (%) (Auto) 73.9 % Lymphocytes (%) (Auto) 16.4 % Monocytes (%) (Auto) 8.7 % Eosinophils (%) (Auto) 0.6 % Basophils (%) (Auto) 0.2 % Neutrophils # (Auto) 4.01 K/uL Lymphocytes # (Auto) 0.89 K/uL Monocytes # (Auto) 0.47 K/uL Eosinophils # (Auto) 0.03 K/uL Basophils # (Auto) 0.01 K/uL RDW Standard Deviation 60.4 fL RDW Coefficient of Variation 17.9 % Immature Granulocyte % (Auto) 0.2 % Immature Granulocyte # (Auto) 0.01 K/uL Prothrombin Time 9.8 SECONDS Prothromb Time International Ratio 0.9 Activated Partial Thromboplast Time 47.6 SECONDS Partial Thromboplastin Ratio 1.8 Sodium Level 138 mmol/L Potassium Level 4.2 mmol/L Chloride Level 103 mmol/L Carbon Dioxide Level 27 mmol/L Anion Gap 8.0 mmol/L Blood Urea Nitrogen 26 mg/dl Creatinine 1.00 mg/dl Est Creatinine Clear Calc Drug Dose 32.3 ml/min Estimated GFR () 64.7 Estimated GFR (Non- 55.8 BUN/Creatinine Ratio 25.9 Random Glucose 109 mg/dl Estimated Average Glucose 117 mg/dl Hemoglobin A1c 5.7 % Calcium Level 8.9 mg/dl Total Bilirubin 0.6 mg/dl Direct Bilirubin 0.2 mg/dl Aspartate Amino Transf (AST/SGOT) 32 U/L Alanine Aminotransferase (ALT/SGPT) 21 U/L Alkaline Phosphatase 55 U/L Total Creatine Kinase 28 U/L Creatine Kinase MB < 1.0 ng/ml Total Protein 6.3 gm/dl Albumin 2.8 gm/dl Lipase 160 U/L Bedside Troponin I < 0.030 ng/ml < 0.030 ng/ml Test 12/13/17 21:00 12/13/17 23:03 12/14/17 04:59 Urine Color YELLOW Urine Appearance CLEAR Urine pH 8.0 Urine Specific [place] 1.010 Urine Protein NEG Urine Glucose (UA) NEG Urine Ketones NEG Urine Occult Blood NEG Urine Nitrite NEG Urine Bilirubin NEG Urine Urobilinogen NEG Urine Leukocyte Esterase NEG Troponin I 0.022 ng/ml 0.020 ng/ml White Blood Count 4.51 K/uL Red Blood Count 3.45 M/uL Hemoglobin 10.1 g/dL Hematocrit 31.7 % Mean Corpuscular Volume 91.9 fL Mean Corpuscular Hemoglobin 29.3 pg Mean Corpuscular Hemoglobin Concent 31.9 g/dl Platelet Count 123 K/uL Mean Platelet Volume 9.4 fL Neutrophils (%) (Auto) 67.4 % Lymphocytes (%) (Auto) 17.3 % Monocytes (%) (Auto) 14.0 % Eosinophils (%) (Auto) 0.9 % Basophils (%) (Auto) 0.2 % Neutrophils # (Auto) 3.04 K/uL Lymphocytes # (Auto) 0.78 K/uL Monocytes # (Auto) 0.63 K/uL Eosinophils # (Auto) 0.04 K/uL Basophils # (Auto) 0.01 K/uL RDW Standard Deviation 60.0 fL RDW Coefficient of Variation 17.8 % Immature Granulocyte % (Auto) 0.2 % Immature Granulocyte # (Auto) 0.01 K/uL Sodium Level 139 mmol/L Potassium Level 3.8 mmol/L Chloride Level 105 mmol/L Carbon Dioxide Level 28 mmol/L Anion Gap 6.0 mmol/L Blood Urea Nitrogen 17 mg/dl Creatinine 0.86 mg/dl Est Creatinine Clear Calc Drug Dose 37.6 ml/min Estimated GFR () 77.7 Estimated GFR (Non- 67.0 BUN/Creatinine Ratio 19.5 Random Glucose 78 mg/dl Calcium Level 8.1 mg/dl Triglycerides Level 175 mg/dl Cholesterol Level 103 mg/dl HDL Cholesterol 30 mg/dl LDL Cholesterol, Calculated 38 mg/dl VLDL Cholesterol, Calculated 35 mg/dl Cholesterol/HDL Ratio 3.4 Assessment and Plan 72 year old female presents with tia like symptoms, chest pain and a history of known CAD and lung cancer, alsos with a past medical history of Gastric Lymphoma (Remission), 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 * Aortic valve sclerosis mild, without significant aortic valvular stenosis. - Stress Echo ordered - Consult Cardiology - Follows as outpatient with Dr. 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
[2017-12-14] MEDS: ALBUTEROL HFA 8 GM INHALER INH SCH (08:32)
[2017-12-14] MEDS: METOPROLOL TARTRATE 25 MG TAB PO SCH (08:33)
[2017-12-14] MEDS: RANOLAZINE 500 MG ER TAB PO SCH (08:33)
[2017-12-14] MEDS: POTASSIUM CHLORIDE 10 MEQ TABCR PO SCH (08:33)
[2017-12-14] MEDS ORDERED: ASPIRIN 81 MG ECTAB PO SCH (09:00)
[2017-12-14] MEDS ORDERED: MAGNESIUM OXIDE 400 MG TAB PO SCH (09:00)
[2017-12-14] MEDS ORDERED: ISOSORBIDE MONONITRATE 60 MG TABCR PO SCH (09:00)
--- NOTE | 2017-12-14 10:09 | Discharge Instructions ---
Discharge Instructions Date of Service Dec 14, 2017. Admission Reason for Admission: Stable Agina Discharge Discharge Diagnosis / Problem: chest pain Discharge Goals Goal(s): Diagnostic testing, Therapeutic intervention Activity Recommendations Activity Limitations: as noted below Lifting Limitations: gradually increase as tolerated . Current Hospital Diet Patient's current hospital diet: AHA Diet (Heart Healthy) Discharge Diet Recommended Diet: AHA Diet (Heart Healthy) Pending Studies Studies pending at discharge: no Laboratory Results Hemoglobin A1c Test 12/13/17 13:36 Range/Units Estimated Average Glucose 117 mg/dl Hemoglobin A1c 5.7 H 4.5-5.6 % Lipid Panel Test 12/14/17 04:59 Range/Units Triglycerides Level 175 H 0-150 mg/dl Cholesterol Level 103 0-200 mg/dl HDL Cholesterol 30 mg/dl Cholesterol/HDL Ratio 3.4 LDL Cholesterol, Calculated 38 mg/dl Medical Emergencies . Who to Call and When: Medical Emergencies: If at any time you feel your situation is an emergency, please call 911 immediately. . Non-Emergent Contact Non-Emergency issues call your: Primary Care Provider Call Non-Emergent contact if: temperature is above 101, your pain is not controlled . . "Provider Documentation" section prepared by Willie Avina. .
[2017-12-14 10:13] VITALS: BP 136/78; PULSE 72; TEMP 36.6; O2SAT 95
--- NOTE | 2017-12-14 10:24 | Neurology Consultation ---
Neurology Consultation Date of Consultation: Dec 14, 2017. Attending Physician: Willie Avina M.D. Primary Care Physician: Evin Tinajero M.D. Reason for Consultation: TIA versus seizure History of Present Illness Source: patient, clinic records, hospital records This is a 72-year-old female who presented with seizure-like activity. Patient does not remember the event. Family reports that she suddenly froze while eating, was not speaking, and had shaking of her left arm that lasted for about a minute with confusion afterwards that slowly resolved. Patient denies any focal weakness or numbness. Reports she has never had an event like this before. Denies any seizures in the past. Denies any strokes. Denies any chest pain or heart palpitations. Denies any recent illnesses. Feels that she is at her neurological baseline this morning. MRI of the brain report and images were reviewed by myself. Patient has age- related subcortical small vessel ischemic disease but otherwise unremarkable. Total cholesterol 103, LDL 38, HDL 30, triglycerides 175, hemoglobin A1c 5.7 Cardiology notes were reviewed. Past Medical/Surgical History Medical Problems: (1) Acute bronchitis Status: Acute (2) ACUTE BRONCHITIS WITH CHRONIC LUNG DIASE. EXACE., CAD, NHL Status: Acute (3) Acute bronchopneumonia Status: Acute (4) Acute exacerbation of chronic obstructive pulmonary disease (COPD) Status: Acute (5) Bilateral bronchopneumonia Status: Acute (6) Bilateral pneumonia Status: Acute (7) Bronchopneumonia Status: Acute (8) Chest pain Status: Acute (9) Chest pain Status: Acute (10) Chest wall contusion Status: Acute (11) Common bile duct dilation Status: Acute (12) Coronary artery disease Status: Chronic (13) Elevated troponin Status: Acute (14) Elevated troponin Status: Acute (15) Epigastric abdominal pain Status: Acute (16) Fall Status: Acute (17) FALL. LEFT RIB PAIN Status: Acute (18) Fever Status: Acute (19) Finger fracture, left Status: Acute (20) Hypomagnesemia Status: Acute (21) INTRACTABLE NAUSEA/VOMIT, LYMPHOMA Status: Acute (22) Pneumonia Status: Acute (23) Precordial chest pain Status: Acute (24) Shortness of breath on exertion Status: Acute (25) Syncope Status: Acute (26) URI (upper respiratory infection) Status: Acute (27) Weakness Status: Acute Gastric lymphoma in remission Small cell lung cancer with lymphatic metastasis CAD status post CABG with a history of angina and ischemic cardiomyopathy Hypertension Dyslipidemia Sjogren's Syncope Family History Reports family history of stroke Father: stroke, pertinent history of Mother: pertinent history of Social History Normally independent in her activities of daily living. Reports that she normally walks independently. No smoking Smoking Status: Never smoker Drug Use: none Marital Status: Housing Status: lives with family Occupation Status: unemployed Allergies Coded Allergies: No Known Allergies (Unverified , 07/02/17) Current Inpatient Medications Current Inpatient Medications Medications (Trade) Dose Ordered Sig/Jimmy Route Start Time Stop Time Status Last Admin Dose Admin Acetaminophen (Tylenol Tab) 650 mg Q4H PRN PO 12/13/17 19:30 01/12/18 19:29 12/14/17 02:38 650 MG Magnesium Hydroxide (Milk Of Magnesia Susp) 30 ml Q12H PRN PO 12/13/17 19:30 01/12/18 19:29 Ondansetron HCl (Zofran Inj) 4 mg Q6H PRN IV 12/13/17 19:30 01/12/18 19:29 12/14/17 00:41 4 MG Nitroglycerin (Nitrostat Tab) 0.4 mg UD PRN SL 12/13/17 19:30 01/12/18 19:29 Miscellaneous Information (Pharmacist Discharge Med Rec Consult) 1 ea UD PRN N/A 12/13/17 19:30 01/12/18 19:29 Aspirin (Ecotrin Tab) 81 mg QAM PO 12/14/17 09:00 01/13/18 08:59 12/14/17 08:32 81 MG Epinephrine (Epipen) 0.3 mg UD PRN IM 12/13/17 19:30 01/12/18 19:29 Isosorbide Mononitrate (Imdur Ext Rel Tab) 60 mg QAM PO 12/14/17 09:00 01/13/18 08:59 12/14/17 08:32 60 MG Metoprolol Tartrate (Lopressor Tab) 75 mg BID PO 12/13/17 21:00 01/12/18 20:59 12/14/17 08:33 75 MG Multivitamins/ Minerals (Multivitamin W/ Minerals Tab) 1 tab QPM PO 12/13/17 21:00 01/12/18 20:59 12/13/17 22:56 1 TAB Potassium Chloride (Klor-Con M10) 10 meq TID PO 12/13/17 21:00 01/12/18 20:59 12/14/17 08:33 10 MEQ Prochlorperazine Maleate (Compazine Tab) 10 mg QD PRN PO 12/13/17 19:30 01/12/18 19:29 12/14/17 05:14 10 MG Raloxifene HCl (Evista Tab) 60 mg QPM PO 12/13/17 21:00 01/12/18 20:59 12/13/17 22:56 60 MG Ranolazine (Ranexa ER Tab) 500 mg Q12 PO 12/13/17 21:00 01/12/18 20:59 12/14/17 08:33 500 MG Simvastatin (Zocor Tab) 40 mg HS PO 12/13/17 21:00 01/12/18 20:59 12/13/17 22:57 40 MG Albuterol (Ventolin Hfa Inhaler) 2 puffs QID INH 12/13/17 21:00 01/12/18 20:59 12/14/17 08:32 2 PUFFS Magnesium Oxide (Mag-Ox Tab) 200 mg QAM PO 12/14/17 09:00 01/13/18 08:59 12/14/17 08:32 200 MG Miscellaneous Information (Order Awaiting Action) 1 ea QS N/A 12/14/17 00:00 01/13/18 00:00 Miscellaneous Information (Order Awaiting Action) 1 ea QS N/A 12/14/17 00:00 01/13/18 00:00 Gadobutrol (Gadavist) 4 mmol UD PRN IV 12/14/17 03:00 12/18/17 02:59 Review of Systems Complete review of systems otherwise negative except for the above noted in HPI Physical Exam Vital Signs (Past 24 Hrs): Date Time Temp Pulse Resp B/P (MAP) Pulse Ox O2 Delivery O2 Flow Rate FiO2 12/14/17 10:13 36.6 72 18 95 Room Air 12/14/17 08:00 Room Air 12/14/17 07:30 36.6 72 18 136/78 (97) 95 Room Air 12/14/17 03:44 36.6 69 18 123/75 (91) 96 Room Air 12/14/17 00:54 36.8 69 20 147/96 (113) 95 Room Air 12/14/17 00:45 96 Room Air 12/13/17 20:45 36.9 75 18 167/80 96 Room Air 12/13/17 20:15 82 20 150/64 98 12/13/17 18:00 69 16 159/88 98 Room Air 12/13/17 17:26 69 12/13/17 16:00 74 18 137/71 97 Room Air 12/13/17 14:12 69 18 139/85 96 Room Air 12/13/17 13:23 94 Room Air 12/13/17 13:15 72 12/13/17 12:26 36.4 74 18 134/77 93 Room Air Gen.: Patient is alert and oriented in no acute distress, sitting in a chair Heart: Regular rate and rhythm Extremities: No gross deformities or rashes noted Neurological examination: Mental status: Patient is alert and oriented to person place and time. Able to give his own history. Good fund of knowledge. Attention and concentration normal for the situation. Recent and remote memory intact Speech is fluent without any dysarthria or aphasia noted Cranial nerves: Funduscopic examination was difficult to visualize. Pupils equally round and reactive to light. Extraocular muscles intact without nystagmus. No facial asymmetry noted. Facial sensation intact. Tongue midline. Good palatal elevation. Good shoulder shrug bilaterally. Hearing grossly intact voice. Strength: 5/5 both proximal and distal in all extremities .Tone is normal. Sensation: Grossly intact to light touch in all extremities Deep tendon reflexes: +1 in bilateral biceps and patellar. Coordination: Patient has good finger to nose without dysmetria Station within the chair is normal. Laboratory Results Past 24 Hours: 12/14/17 04:59 Red Blood Count 3.45, Mean Corpuscular Volume 91.9, Mean Corpuscular Hemoglobin 29.3, Mean Corpuscular Hemoglobin Concent 31.9, Mean Platelet Volume 9.4, Neutrophils (%) (Auto) 67.4, Lymphocytes (%) (Auto) 17.3, Monocytes (%) (Auto) 14.0, Eosinophils (%) (Auto) 0.9, Basophils (%) (Auto) 0.2, Neutrophils # (Auto ) 3.04, Lymphocytes # (Auto) 0.78, Monocytes # (Auto) 0.63, Eosinophils # (Auto ) 0.04, Basophils # (Auto) 0.01 12/14/17 04:59 Test 12/13/17 13:36 12/13/17 17:12 12/13/17 21:00 12/14/17 04:59 Prothrombin Time 9.8 SECONDS (9.0-12.0) Prothromb Time International Ratio 0.9 (0.9-1.1) Activated Partial Thromboplast Time 47.6 SECONDS (21.0-31.0) Partial Thromboplastin Ratio 1.8 Estimated Average Glucose 117 mg/dl Hemoglobin A1c 5.7 % (4.5-5.6) Total Bilirubin 0.6 mg/dl (0.2-1) Direct Bilirubin 0.2 mg/dl (0-0.2) Aspartate Amino Transf (AST/SGOT) 32 U/L (15-37) Alanine Aminotransferase (ALT/SGPT) 21 U/L (12-78) Alkaline Phosphatase 55 U/L (45-117) Total Creatine Kinase 28 U/L (26-192) Creatine Kinase MB < 1.0 ng/ml (0.5-3.6) Creatine Kinase MB Ratio (0-3.0) Total Protein 6.3 gm/dl (6.4-8.2) Albumin 2.8 gm/dl (3.4-5.0) Lipase 160 U/L (73-393) Bedside Troponin I < 0.030 ng/ml (0-0.045) Urine Color YELLOW Urine Appearance CLEAR (CLEAR) Urine pH 8.0 (4.5-7.5) Urine Specific [place] 1.010 (1.000-1.030) Urine Protein NEG (NEG) Urine Glucose (UA) NEG (NEG) Urine Ketones NEG (NEG) Urine Occult Blood NEG (NEG) Urine Nitrite NEG (NEG) Urine Bilirubin NEG (NEG) Urine Urobilinogen NEG (NEG) Urine Leukocyte Esterase NEG (NEG) White Blood Count 4.51 K/uL (4.8-10.8) Red Blood Count 3.45 M/uL (4.2-5.4) Hemoglobin 10.1 g/dL (12.0-16.0) Hematocrit 31.7 % (37-47) Mean Corpuscular Volume 91.9 fL (80-100) Mean Corpuscular Hemoglobin 29.3 pg (25-34) Mean Corpuscular Hemoglobin Concent 31.9 g/dl (32-36) Platelet Count 123 K/uL (130-400) Mean Platelet Volume 9.4 fL (7.4-10.4) Neutrophils (%) (Auto) 67.4 % Lymphocytes (%) (Auto) 17.3 % Monocytes (%) (Auto) 14.0 % Eosinophils (%) (Auto) 0.9 % Basophils (%) (Auto) 0.2 % Neutrophils # (Auto) 3.04 K/uL (1.4-6.5) Lymphocytes # (Auto) 0.78 K/uL (1.2-3.4) Monocytes # (Auto) 0.63 K/uL (0.11-0.59) Eosinophils # (Auto) 0.04 K/uL (0-0.5) Basophils # (Auto) 0.01 K/uL (0-0.2) RDW Standard Deviation 60.0 fL (36.4-46.3) RDW Coefficient of Variation 17.8 % (11.5-14.5) Immature Granulocyte % (Auto) 0.2 % Immature Granulocyte # (Auto) 0.01 K/uL (0.00-0.02) Anion Gap 6.0 mmol/L (3-11) Est Creatinine Clear Calc Drug Dose 37.6 ml/min Estimated GFR () 77.7 Estimated GFR (Non- 67.0 BUN/Creatinine Ratio 19.5 (10-20) Calcium Level 8.1 mg/dl (8.5-10.1) Troponin I 0.020 ng/ml (0-0.045) Triglycerides Level 175 mg/dl (0-150) Cholesterol Level 103 mg/dl (0-200) HDL Cholesterol 30 mg/dl LDL Cholesterol, Calculated 38 mg/dl VLDL Cholesterol, Calculated 35 mg/dl Cholesterol/HDL Ratio 3.4 Imaging As noted above in HPI Impression This is a 72-year-old female with a likely focal onset seizure with impaired mentation. Cannot completely rule out a transient ischemic event, but at this time I feel is less likely. Vascular risk factors include hypertension, dyslipidemia, and CAD, which appear to be under reasonable control and is followed by cardiology. Plan Recommend routine EEG. No neurological barriers to discharge today. If needed , patient can reasonably get EEG as an outpatient and follow-up with neurology clinic for further evaluation. No recommended changes to medications. Discussed with patient that if she has repeat stereotypical events suggesting seizures, may need to reconsider seizure medications at a later date, but no indication for seizure medications at this time. If patient has any additional focal neurological events concerning for stroke or TIA, should return to the ER immediately for evaluation. Thank you for allowing me to participate in this patient's care. If there is any questions or concerns, feel free to call/patient.
--- NOTE | 2017-12-14 13:52 | Discharge Summary ---
Discharge Summary Date of Service Dec 14, 2017. Discharge Summary Admission Date: Dec 13, 2017 at 19:41 Discharge Date: Dec 14, 2017 Discharge Disposition: Home Principal Diagnosis: chest pain, resolved Problems/Secondary Diagnoses: (1) Coronary artery disease Status: Chronic Immunizations: Have You Had Influenza Vaccine: Yes Influenza Vaccine Date: Jan 10, 2013 History of Tetanus Vaccine?: Yes Tetanus Immunization Date: Aug 17, 2008 History of Pneumococcal: Yes Pneumococcal Date: Feb 16, 2009 History of Hepatitis B Vaccine: No Consultations: Dr Tian did see in consultation, given negative troponins, he does not want to pursue workup as likely to suggest CAD and with other comorbid conditions will not consider cath or bypass, would recommend medical management and in the future if symptoms persist would recommend increasing Ranexa Medication Reconciliation Continued Medications: Albuterol Sulfate (Proair Respiclick) 108 Mcg/Act Aer 2 PUFFS INH QID Aspirin (Aspirin 81) 81 Mg Tab 81 MG PO QAM OK WITH SURGEON TO CONTINUE PER PT Calcium Carbonate-Cholecalcife (Caltrate 600+D) 1 Tab Tab 1 TAB PO BID Cevimeline Hcl (Cevimeline Hcl) 30 Mg Cap 30 MG PO TID Epinephrine (Epipen) 0.3 Mg/0.3 Ml Inj 0.3 MG IM UD PRN for ALLERGIC REACTION PT ON HYZENTRA INFUSION WEEKLY AND THE EPI WAS PRESCRIBED IN CASE OF REACTION TO THIS MEDICATION Erlotinib (Tarceva) 25 Mg Tab 50 MG PO QPM Immune Globulin (Human) Subcut (Hizentra) 4 Gm/20 Ml Inj 8 GM INJ WK Inject on Fridays Isosorbide Mononitrate (Imdur Ext Rel) 60 Mg Tab 60 MG PO QAM, TAB Magnesium (Magnesium 250 mg) 1 Tab Tab 1 TAB PO QAM Metoprolol Tartrate (Lopressor) (Lopressor) 50 Mg Tab 75 MG PO BID, TAB Multivitamins/Minerals (Mvi With Minerals) Tab 1 TAB PO QPM, TAB Nitroglycerin (Nitrostat) 0.4 Mg Sub 0.4 MG UT UD PRN for Chest Pain Ondansetron (Ondansetron HCl) 4 Mg Tab 4 MG SL Q6H for 30 Days, #120 TAB Potassium Chloride Microencaps (Potassium Chloride Cr) 10 Meq Tab 10 MEQ PO TID Probiotic Product (Probiotic) 1 Cap Cap 1 TAB PO QPM Prochlorperazine Maleate (Compazine) 10 Mg Tab 10 MG PO PRN for Nausea or Vomiting, TAB Raloxifene HCl (Raloxifene Hydrochloride) 60 Mg Tab 60 MG PO QPM, #90 Ranolazine (Ranexa) 500 Mg Tabcr 500 MG PO Q12 Simvastatin (Zocor) 40 Mg Tab 40 MG PO HS, TAB Discharge Exam Review of Systems: Constitutional: No fever, No chills Abdomen: No pain, No nausea, No vomiting Musculoskeletal: No joint pain, No muscle pain Physical Exam: General Appearance: no apparent distress, + thin Respiratory/Chest: chest non-tender, lungs clear, normal breath sounds Cardiovascular: regular rate, rhythm, no murmur Abdomen / GI: normal bowel sounds, non tender, soft Hospital Course 72 year old female presents with tia like symptoms, chest pain and a history of known CAD and lung cancer, alsos with a past medical history of Gastric Lymphoma (Remission), Non-Small Cell Lung CA with Metastatic Flavio Disease, CAD S/P CABG x 4 Vessels, HTN, HLD, Chronic Angina, Chronic Cough, AN[place]IETTA, Immunoglobulin Deficiency, and Sjogrens also with an episode of AMS and seizure like activity this afternoon TIA- CT Head: No acute intracranial abnormalities - MRI Brain Combo Consult Neurology has no other recommendations that perhaps outpt EEG, the pt will consult with Dr Villalpando - Continue home Aspirin and Statin Stable Angina with history of CAD s/p CABG x 4 - Trop < 0.015 no significant elevation - EKG: NSR, No ST changes, old T wave inversion with no change from previous EKG - Last ECHO 06/2017: * The overall LV systolic function is now normal. * Aortic valve sclerosis mild, without significant aortic valvular stenosis. - Consult Cardiology - Follows as outpatient with Dr. Tian, he does not wish to pursue stress testing - Continue home Lopressor, Imdur, Aspirin, and Simvastatin - Currently on Ranexa to treat chronic chest pain, may consider increased dose if symptoms become more frequent - NTG PRN for CP Non-Small Cell Lung CA with Metastatic Flavio Disease/ANTON[place]ETTA/Chronic Cough: - Albuterol 2 puffs QID - Tarceva 50 mg daily Sjogrens- Cevimeline 30 mg TID (Pharmacy must fill, Non-formulary) Total Time Spent: Greater than 30 minutes This includes examination of the patient, discharge planning, medication reconciliation, and communication with other providers. Discharge Instructions Please refer to the electronic Patient Visit Report (Discharge Instructions) for additional information.
--- NOTE | 2017-12-14 14:44 | CARDIOLOGY CONSULTATION ---
DATE OF CONSULTATION: 12/14/2017 PERTINENT HISTORY: Mrs. Vega is a 72-year-old white female admitted yesterday with acute mental status changes and seizure like activity. This consultation was ordered to assist in her cardiac management as she has noted several episodes of angina pectoris recently. Of note, patient is well known to me from the outpatient setting. Patient was in her usual state of health until yesterday when she was at a restaurant with her family. She was attempting to take her first bite of the meal when she "froze" and was unable to move. She then had a witnessed seizure-like activity. She was brought to the Emergency Room for further care. On her evaluation in the Emergency Room, she explained that she has had 4 episodes of angina pectoris since 11/25/2017. These were characterized by substernal chest heaviness that radiates to the midscapular region. Each episode occurred spontaneously and resolved with the use of sublingual nitroglycerin. The patient's cardiac history began back in 03/2011 when she failed a stress test. The cardiac catheterization revealed severe 3-vessel disease, and she underwent a 4-vessel bypass procedure at [facility]. This included an CUTLER to the LAD and saphenous vein grafts to diagonal branch, circumflex, and right coronary arteries. In 01/2013, she underwent a cardiac catheterization because of a chest pain syndrome. Fortunately, all grafts were patent, and left ventricular systolic function was normal. The patient eventually developed chronic angina pectoris and was placed on ranolazine back in 2015. She has had minimal episodes of angina pectoris since the time. Currently, patient is resting comfortably in bed without complaints. She is anxious for hospital discharge. PAST MEDICAL HISTORY: 1. Coronary artery disease. See above. 2. Status post CABG x4, 03/2011. 3. Patent grafts, 01/2013. 4. Hypertension. 5. Hypercholesterolemia. 6. Mild to moderate mitral regurgitation. 7. Normal left ventricular systolic function. 8. Hypogammaglobulinemia. 9. 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 10. 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 11. Sjogren syndrome. 12. History of autoimmune hepatitis. 13. Metastatic non-small cell lung carcinoma. 14. Right knee meniscal surgery, 10/2012. 15. Nephrolithiasis. 16. Status post hysterectomy. ALLERGIES: None. MEDICATIONS: 1. Metoprolol tartrate 75 mg b.i.d. 2. Ranolazine 500 mg b.i.d. 3. Zocor 40 mg at bedtime. 4. Imdur 60 mg per day. 5. Magnesium oxide 200 mg daily. 6. Aspirin 81 mg per day. 7. Potassium 10 mEq t.i.d. 8. Evista 60 mg daily. 9. Ventolin 2 puffs q.i.d. 10. Multivitamin daily. ALLERGIES: None. SOCIAL HISTORY: The patient is retired. She is and lives with her and helps care for a 44-year-old son who suffered a severe CVA. She does not use tobacco or alcohol. FAMILY HISTORY: Mother in her 60s from an IA. Father in his 60s from a stroke and IA. REVIEW OF SYSTEMS: A 10-point review of systems was negative except for that described above. PHYSICAL EXAMINATION: GENERAL: This is a thin elderly white female lying supine in bed without complaints. VITAL SIGNS: Blood pressure is 136/78, with regular pulse of 72, respiratory rate is 18, patient is afebrile at 36.6 degrees Celsius, saturation is 95% on room air. HEENT: Negative. NECK: Supple, with full carotid upstrokes. There are no carotid bruits. Jugular venous pressure is flat at 90 degrees. There is no thyromegaly. CARDIOVASCULAR: Exam reveals a regular rhythm, with normal S1 and S2. Heart sounds are distant. No obvious murmurs. No S3. RESPIRATORY: Lungs are clear without rales, rhonchi, or wheezes. Chest reveals no evidence of tenderness. GASTROINTESTINAL: Abdomen is soft, nontender, without bruits. VASCULAR: Extremities show intact radial artery pulse bilaterally. There is no peripheral edema. LABORATORY DATA: CBC notes hemoglobin of 10.1, hematocrit 31.7, white count 4.51, platelet count 123,000. Electrolytes note a sodium of 139, potassium 3.8, chloride 105, bicarb 28, BUN 17, creatinine 0.86, glucose 78. Two point of care troponins were undetectable, less than 0.03, with followup values of 0.022 and 0.02 which are normal. Fasting lipid panel notes an LDL cholesterol of 38 and an HDL of 30. monitor tech is benign. EKG notes sinus rhythm and a nonspecific T-wave abnormality. IMPRESSION: Mrs. Dunkle was admitted with mental status changes and a seizure-like activity. She gave a report of 4 recent episodes of angina pectoris. She carries a history of chronic stable angina pectoris, well controlled with ranolazine and p.r.n. nitroglycerin. No need for change in her management strategy at this time. We could consider an increase in her ranolazine if necessary. This can be determined as an outpatient. PLAN: 1. Continue usual cardiac medications as you are. 2. No further cardiac evaluation necessary. 3. Stable from the cardiac perspective for hospital discharge.
--- NOTE | 2017-12-24 07:21 | EDITING REQUIRED CODING QUERY ---
To promote full compliance with coding requirements relating to patient care, provider participation is requested in all cases of police judge uncertainty. Please assist us with the question(s) below: Coding Question(s): The diagnosis(es) below was documented in the chart. TIA documented throughout the chart; however, the neurology consult states the following, "This is a 72-year-old female with a likely focal onset seizure with impaired mentation. Cannot completely rule out a transient ischemic event, but at this time I feel is less likely." Please clarify below if the TIA was ( xx ) Present and treated during this encounter ( ) Ruled out ( ) Other (please specify) ( ) Unable to determine Physician comment: Thank you for your time, GARIMA Escamilla, [employer] HOUSE ATTENDANT
== END 2017-12-14 11:20 | disposition home or self-care (01) | DRG 69 ==
LOC: C.EDB 12:19 → C.2T 19:41 → ENRESERV 19:56 → C.2E 21:39
PROVIDERS: ADMIT Student in an Organized Health Care Education/Training Program; ATTEND Internal Medicine
DX: G45.9 Transient cerebral ischemic attack, unspecified (principal); C34.90 Malignant neoplasm of unspecified part of unspecified bronchus or lung; C77.9 Secondary and unspecified malignant neoplasm of lymph node, unspecified; A31.0 Pulmonary mycobacterial infection; I25.119 Atherosclerotic heart disease of native coronary artery with unspecified angina pectoris; I10 Essential (primary) hypertension; E78.5 Hyperlipidemia, unspecified; M35.00 Sjogren syndrome, unspecified; Z95.1 Presence of aortocoronary bypass graft; Z85.72 Personal history of non-Hodgkin lymphomas; Z82.3 Family history of stroke; Z79.810 Long term (current) use of selective estrogen receptor modulators (SERMs); Z79.82 Long term (current) use of aspirin; Z79.899 Other long term (current) drug therapy

== ENCOUNTER 2018-06-29 13:37 | Inpatient (IN) ==
[2018-06-29] MEDS ORDERED: METOCLOPRAMIDE HCL INJ 5 MG/ML 2 ML VIAL IV PRN (14:26)
[2018-06-29] MEDS ORDERED: METOCLOPRAMIDE HCL INJ 5 MG/ML 2 ML VIAL ONE (14:56)
[2018-06-29] MEDS ORDERED: HEPARIN 100 UNIT/ML 5ML FLUSH ONE (14:56)
[2018-06-29] MEDS ORDERED: HEPARIN 100 UNIT/ML 5ML FLUSH FLUSH PRN (15:00)
[2018-06-29] MEDS ORDERED: D5NSS + 20MEQ KCL 20 MEQ/1,000 ML BAG IV SCH (15:30)
[2018-06-29] MEDS ORDERED: GADOBUTROL 65ML VIAL IV PRN (15:39)
--- NOTE | 2018-06-29 15:50 | Magnetic Resonance Report ---
MR brain wo/w con CLINICAL HISTORY: suspected mets mental status change COMPARISON STUDY: 12/14/2017 TECHNIQUE: Utilizing a 1.5 Vonnie magnet and dedicated coil, multiplanar, multiecho imaging of the br ain was performed pre and postcontrast administration. IV administration of 6.5 mL of Gadavist contr ast was uneventful. FINDINGS: Unchanged exam from the prior study. Diffusion images are negative for an acute ischemic ev ent. Several foci of increased signal within the periventricular and deep white matter regions. These are identical compared to the prior exam. No abnormal postcontrast enhancement. The ventricular system is midline. IMPRESSION: 1. Unchanged exam compared to the prior study. 2. No evidence for metastatic disease based on MRI criteria. 3. Mild age-related atrophy and chronic small vessel change The above report was generated using voice recognition software. It may contain grammatical, syntax or spelling errors. Electronically signed by: David Nunez M.D. 06/29/2018 3:48 PM
[2018-06-29] MEDS ORDERED: ONDANSETRON INJ 2 MG/ML 2 ML VIAL IV PRN (18:53)
[2018-06-29] MEDS ORDERED: ALUMINUM/MAGNESIUM SUSP 30 ML UDC PO PRN (18:53)
--- NOTE | 2018-06-29 18:58 | History & Physical Report ---
Date of Service June 29, 2018 Assessment & Plan (1) Intractable nausea and vomiting: This patient is a 73-year-old female with a history of metastatic non- small cell lung cancer, CAD, gastric lymphoma in remission, Sjogren's syndrome on chronic prednisone, HTN, HL, autoimmune hepatitis, kidney stones, primary immunodeficiency disorder, and COPD, who presented as a direct admission from the cancer center after presenting there as a walk-in with intractable nausea and vomiting times 5 days. The patient had an EBUS navigational bronchoscopy with FNA lymph nodes and lung masses on 06/24/18. She does have a chronic history of nausea since starting on Tarceva in April 2017, but reports that the nausea has become much worse since her procedure last week. She has been tolerating liquids but has been vomiting every time after she tries to eat solid foods. She denies any abdominal pain. No diarrhea, no constipation, no melena or bright red blood per rectum. She is still having a normal bowel movement daily. She has been taking Zofran 4 times a day which does help a little bit. She has been feeling generally weak and having some unsteadiness on her feet due to that the last few days. She denies fevers, sweats, chills, denies sick contacts. Denies any new chest pains besides her stable angina. Denies any new dyspnea and has been able to walk up and down stairs. She has been having an occasional mild headache, but no lightheadedness. She denies any myalgias or arthralgias other than her hands. She had an MRI of the brain upon admission to look for metastases and this was negative. -Admit to medical/surgical floor for intractable nausea vomiting, likely secondary to ileus from anesthesia from recent procedure in the setting of chronic nausea secondary to chemotherapy -Start metoclopramide 10 mg IV every 6 hours as needed -Can give Zofran 4 mg IV every 6 hours as needed -Can advance to clear liquids diet at this time and advance diet as tolerated -We will give D5 half-normal saline with 20 of potassium chloride maintenance fluids at 100 mL's per hour -Follow electrolytes in the morning, check TSH in the morning -No need for imaging at this time as there is no abdominal pain, no evidence of sepsis, and no abdominal tenderness on examination (2) Hyperlipidemia: -Continue home simvastatin (3) Hypertension: Stable -Continue home metoprolol tartrate 75 mg p.o. twice daily, isosorbide 60 mg daily (4) Hypogammaglobulinemia: Receives weekly infusions of Hizentra which helps if in used to have frequent infections (5) Sjogren's disease: Continue home prednisone 3 mg daily, Evoxac 30 mg daily (6) Non-small cell lung cancer (NSCLC): Not in remission, with metastases to the lymph nodes previously, with recent biopsy on 06/24 showing adenocarcinoma of the right upper lobe mass, lymph node without cancer on biopsy -Defer further treatment decision last to oncology -She was to have a thoracic surgery follow-up appointment this -if still in the hospital, will consult thoracic surgery here (7) Decreased diffusion capacity of lung: Has severely reduced DLCO on PFTs from 07/2017, otherwise spirometry is normal -Suspect due to Sjogren's disease or chronic lung disease? -Continue inhalers as needed -Follows with pulmonology Is not requiring oxygen here and had a 6-minute walk test within the last year that was normal (8) Osteoporosis: Continue Evista (9) History of coronary artery bypass graft: Stable, with stable angina -Continue home Ranexa, aspirin, statin, metoprolol, isosorbide (10) CAD (coronary artery disease), [place] coronary artery: Stable Status post four-vessel CABG in 2010 -Continue meds as above (11) Generalized weakness: Likely secondary to poor p.o. intake and intractable nausea vomiting -Given IV fluids, advance diet as tolerated PT/OT consults Out of bed with assistance (12) DVT prophylaxis: Heparin SQ Disposition-admit to medical/surgical floor PT/OT consults ordered History of Present Illness Chief Complaint: Nausea/vomiting Primary Care Provider: Evin Villalpando MD This patient is a 73-year-old female with a history of metastatic non-small cell lung cancer, CAD, gastric lymphoma in remission, Sjogren's syndrome on chronic prednisone, HTN, HL, autoimmune hepatitis, kidney stones, primary immunodeficiency disorder, and COPD, who presented as a direct admission from the cancer center after presenting there as a walk-in with intractable nausea and vomiting times 5 days. The patient had an EBUS navigational bronchoscopy with FNA lymph nodes and lung masses on 06/24/18. She does have a chronic history of nausea since starting on Tarceva in April 2017, but reports that the nausea has become much worse since her procedure last week. She has been tolerating liquids but has been vomiting every time after she tries to eat solid foods. She denies any abdominal pain. No diarrhea, no constipation, no melena or bright red blood per rectum. She is still having a normal bowel movement daily. She has been taking Zofran 4 times a day which does help a little bit. She has been feeling generally weak and having some unsteadiness on her feet due to that the last few days. She denies fevers, sweats, chills, denies sick contacts. Denies any new chest pains besides her stable angina. Denies any new dyspnea and has been able to walk up and down stairs. She has been having an occasional mild headache, but no lightheadedness. She denies any myalgias or arthralgias other than her hands. She had an MRI of the brain upon admission to look for metastases and this was negative. I discussed the case with her oncologist, Dr. De La O that saw her in the office today. She is admitted for intractable nausea and vomiting. Allergies Allergy/AdvReac Type Severity Reaction Status Date / Time No Known Allergies Allergy Verified 06/24/18 05:44 Home Medications Home Medications Medication Instructions Recorded Confirmed Type Immune Globulin 8 g INJ WK 06/21/18 06/24/18 History Probiotic 3,000 mmu cells PO DAILY 06/21/18 06/24/18 History Ranexa 500 mg PO BID 06/21/18 06/24/18 History Tarceva 50 mg PO QPM 06/21/18 06/24/18 History albuterol sulfate [ProAir HFA] 2 puff INHALATION QID PRN 06/21/18 06/24/18 History aspirin [Aspir-81] 81 mg PO QAM 06/21/18 06/24/18 History calcium carbonate-vitamin D3 1 tab PO BID 06/21/18 06/24/18 History [Calcium 500 + D] cevimeline 30 mg PO TID 06/21/18 06/24/18 History epinephrine [EpiPen] 0.3 mg IM Q3H PRN 06/21/18 06/21/18 History isosorbide mononitrate 60 mg PO QAM 06/21/18 06/24/18 History magnesium 250 mg PO QAM 06/21/18 06/24/18 History metoprolol tartrate 75 mg PO BID 06/21/18 06/24/18 History multivitamin 1 tab PO QPM 06/21/18 06/24/18 History nitroglycerin [Nitrostat] 0.4 mg SUBLINGUAL UD PRN 06/21/18 06/24/18 History ondansetron 4 mg PO QID PRN 06/21/18 06/24/18 History potassium chloride 10 meq PO TID 06/21/18 06/24/18 History raloxifene 60 mg PO QPM 06/21/18 06/24/18 History simvastatin 40 mg PO HS 06/21/18 06/24/18 History Past Med/Surg History Medical History Mycobacterium avium-intracellulare infection (Chronic) 08/2013 Sjogren's disease (Chronic) Non-small cell lung cancer (NSCLC) TIA (transient ischemic attack) 12/14/2018, TIA vs possible seizure. Stable angina CAD (coronary artery disease), [place] coronary artery With stable angina Decreased diffusion capacity of lung Osteoporosis GERD (gastroesophageal reflux disease) DIET CONTROLLED History of lung cancer DX 1 YEAR AGO. History of lymphoma DX 3 YEARS AGO, in remission Hyperlipidemia Hypertension Hypogammaglobulinemia Mitral regurgitation mild to moderate Surgical History Coronary artery bypass grafts x 4 (Chronic 06/13/12) History of lung biopsy History of arthroscopy RIGHT KNEE MENISCUS History of cholecystectomy History of colonoscopy History of coronary artery bypass graft 4 VESSEL, [facility] [place] 6 YEARS AGO History of hysterectomy History of surgical removal of meniscus of knee Family History Other Family history non-contributory Social History Preferred Language: Ukrainian Communication Ability: Effective Neon Molder Required: No Beliefs That Will Affect Care: None Current Living Situation: Spouse current occupational status: retired 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 Has arthritis pains in the hands, no rashes, has a chronic cough, chronic dyspnea on exertion, chronic stable angina which is improved since starting Ranexa) Physical Exam Vital Signs (Past 24 Hours): Last Vital Signs Temp 37.1 C 06/29/18 15:16 Pulse 72 06/29/18 15:16 Resp 18 06/29/18 15:16 BP 149/75 H 06/29/18 15:16 Pulse Ox 93 06/29/18 15:16 Constitutional: WD/WN, vitals as above Eyes: + eyelid abnormality (Moderate amount of crusting), + conjunctival abnormality (Mild erythema of conjunctiva), PERRL and EOM intact bilaterally ENMT: Ears: no hearing impairment and no external ear abnormality Nose: no external nose abnormality and no nasal discharge Mouth: + oral mucosal abnormality (Dry) Neck: trachea midline, no thyromegaly Respiratory: normal respiratory effort Auscultation: + diminished lung sounds (At right base) and + rhonchi (Bilateral); no crackles and no rales Cardiovascular: RRR, no murmur, no edema Gastrointestinal (Abdomen): normal bowel sounds, soft, nontender, no hepatosplenomegaly Musculoskeletal: Extremities: extremities normal to inspection; no cyanosis and no clubbing Skin: no rashes, warm and dry Neurologic: moves all extremities and awake; no focal motor deficits Psychiatric: A+Ox3, euthymic affect Results & Data Laboratory Results CBC reviewed and within normal limits except hemoglobin mildly low at 11.8, pl atelets mildly low at 137, BMP reviewed and within normal limits T bili 1.1 AST mildly elevated at 39 LFTs otherwise normal Diagnostic Findings Images of the MRI of the brain reviewed personally by me and agree with the following report: MR brain wo/w con CLINICAL HISTORY: suspected mets mental status change COMPARISON STUDY: 12/14/2017 TECHNIQUE: Utilizing a 1.5 Vonnie magnet and dedicated coil, multiplanar, multiecho imaging of the brain was performed pre and postcontrast administration. IV administration of 6.5 mL of Gadavist contrast was uneventful. FINDINGS: Unchanged exam from the prior study. Diffusion images are negative for an acute ischemic event. Several foci of increased signal within the periventricular and deep white ma tter regions. These are identical compared to the prior exam. No abnormal postcontrast enhancement. The ventricular system is midline. IMPRESSION: 1. Unchanged exam compared to the prior study. 2. No evidence for metastatic disease based on MRI criteria. 3. Mild age-related atrophy and chronic small vessel change Code Status & VTE Plan Code Status Full code VTE Prophylaxis Plan VTE Prophylaxis will be ordered: Yes
[2018-06-29 21:41] LABS: Prothrombin Time 10.4 Seconds (9.0-12.0)
[2018-06-30] MEDS ORDERED: ONDANSETRON INJ 2 MG/ML 2 ML VIAL IV PRN (02:15)
[2018-06-30] MEDS ORDERED: ONDANSETRON HCL 8 MG in DEXTROSE 5% 50 ML IV PRN (02:21)
[2018-06-30] MEDS ORDERED: METOCLOPRAMIDE HCL INJ 5 MG/ML 2 ML VIAL IV ONE (02:30)
[2018-06-30] MEDS: HEPARIN SOD 5,000 UNIT/0.5 ML VIAL SQ SCH ×2 (05:53→13:15)
[2018-06-30 06:20] LABS: Albumin Level 2.2 gm/dl (3.4-5.0); BUN Creatinine Ratio 22.6 (10-20); Bilirubin Direct 0.2 mg/dl (0-0.2); Calcium 7.4 mg/dl (8.5-10.1); Est GFR (African American) 99.4; Est GFR (Non-African American) 85.8; Magnesium 1.5 mg/dl (1.8-2.4); Potassium 3.4 mmol/L (3.5-5.1)
[2018-06-30 06:26] LABS: Bilirubin,Total 0.6 mg/dl (0.2-1); Total Protein 5.7 gm/dl (6.4-8.2)
[2018-06-30] MEDS ORDERED: BENZONATATE 100 MG CAPSULE PO PRN (06:30)
[2018-06-30] MEDS ORDERED: NITROGLYCERIN SL 0.4 MG/TAB TAB SL PRN (06:30)
[2018-06-30] MEDS ORDERED: ALBUTEROL HFA 8 GM INHALER INH PRN (06:30)
[2018-06-30] MEDS ORDERED: HYDROCODONE/ACETAMOPHEN 5/325MG TAB PO PRN (06:30)
[2018-06-30] MEDS ORDERED: [UNRECOGNIZED DRUG - REMARK] SCH (08:00)
[2018-06-30] MEDS ORDERED: SODIUM CHLORIDE 0.65% NA SOLN 45 ML (OCEAN) ONE (08:23)
[2018-06-30] MEDS: POTASSIUM CHLORIDE 10 MEQ TABCR PO SCH ×2 (08:39→13:14)
[2018-06-30] MEDS ORDERED: predniSONE 1 MG TAB PO SCH (09:00)
[2018-06-30] MEDS ORDERED: ASPIRIN 81 MG ECTAB PO SCH (09:00)
[2018-06-30] MEDS ORDERED: CALCIUM 600MG + VIT D 400 IU TAB PO SCH (09:00)
[2018-06-30] MEDS ORDERED: ISOSORBIDE MONO EXTENDED REL 60 MG TABCR PO SCH (09:00)
[2018-06-30] MEDS ORDERED: MAGNESIUM OXIDE 400 MG TAB PO SCH (09:00)
[2018-06-30] MEDS ORDERED: METOPROLOL TARTRATE 25 MG TAB PO SCH (09:00)
[2018-06-30] MEDS ORDERED: RANOLAZINE 500 MG ER TAB PO SCH (09:00)
[2018-06-30] MEDS: CEVIMELINE 30 MG PO SCH ×2 (09:15→13:14)
[2018-06-30] MEDS: POTASSIUM CHLORIDE / WTR 10 MEQ/100 ML PLCT IV SCH ×2 (10:59→11:53)
[2018-06-30] MEDS: MAGNESIUM SULFATE / D5W 1 GM/100 ML BAG IV SCH ×2 (10:59→11:53)
[2018-06-30 15:02] VITALS: PULSE 79; TEMP 98.6; O2SAT 92
--- NOTE | 2018-06-30 16:17 | Discharge Summary ---
Date of Service June 30, 2018 Admission HPI Per Admitting Provider This patient is a 73-year-old female with a history of metastatic non-small cell lung cancer, CAD, gastric lymphoma in remission, Sjogren's syndrome on chronic prednisone, HTN, HL, autoimmune hepatitis, kidney stones, primary immunodeficiency disorder, and COPD, who presented as a direct admission from the cancer center after presenting there as a walk-in with intractable nausea and vomiting times 5 days. The patient had an EBUS navigational bronchoscopy with FNA lymph nodes and lung masses on 06/24/18. She does have a chronic history of nausea since starting on Tarceva in April 2017, but reports that the nausea has become much worse since her procedure last week. She has been tolerating liquids but has been vomiting every time after she tries to eat solid foods. She denies any abdominal pain. No diarrhea, no constipation, no melena or bright red blood per rectum. She is still having a normal bowel movement daily. She has been taking Zofran 4 times a day which does help a little bit. She has been feeling generally weak and having some unsteadiness on her feet due to that the last few days. She denies fevers, sweats, chills, denies sick contacts. Denies any new chest pains besides her stable angina. Denies any new dyspnea and has been able to walk up and down stairs. She has been having an occasional mild headache, but no lightheadedness. She denies any myalgias or arthralgias other than her hands. She had an MRI of the brain upon admission to look for metastases and this was negative. I discussed the case with her oncologist, Dr. De La O that saw her in the office today. She is admitted for intractable nausea and vomiting. Principal Diagnosis Nausea/vomiting, ileus Discharge Exam Constitutional WD/WN, vitals as above Eyes + eyelid abnormality (Moderate amount of crusting), + conjunctival abnormality (Mild erythema of conjunctiva), PERRL and EOM intact bilaterally ENMT Ears: no hearing impairment and no external ear abnormality Nose: no external nose abnormality and no nasal discharge Neck trachea midline, no thyromegaly Respiratory normal respiratory effort Auscultation: + diminished lung sounds (At right base) and + rhonchi (Bilateral); no crackles and no rales Cardiovascular RRR, no murmur, no edema Gastrointestinal (Abdomen) normal bowel sounds, soft, nontender, no hepatosplenomegaly Musculoskeletal Extremities: extremities normal to inspection; no cyanosis and no clubbing Skin no rashes, warm and dry Neurologic moves all extremities and awake; no focal motor deficits Psychiatric A+Ox3, euthymic affect Discharge Data Allergies Allergy/AdvReac Type Severity Reaction Status Date / Time No Known Allergies Allergy Verified 06/24/18 05:44 Ordered Studies None 06/29/18 14:28 MR brain wo/w con Urgent Hospital Course (1) Intractable nausea and vomiting: This patient is a 73-year-old female with a history of metastatic non- small cell lung cancer, CAD, gastric lymphoma in remission, Sjogren's syndrome on chronic prednisone, HTN, HL, autoimmune hepatitis, kidney stones, primary immunodeficiency disorder, and COPD, who presented as a direct admission from the cancer center after presenting there as a walk-in with intractable nausea and vomiting times 5 days. The patient had an EBUS navigational bronchoscopy with FNA lymph nodes and lung masses on 06/24/18. She does have a chronic history of nausea since starting on Tarceva in April 2017, but reports that the nausea has become much worse since her procedure last week. She has been tolerating liquids but has been vomiting every time after she tries to eat solid foods. She denies any abdominal pain. No diarrhea, no constipation, no melena or bright red blood per rectum. She is still having a normal bowel movement daily. She has been taking Zofran 4 times a day which does help a little bit. She has been feeling generally weak and having some unsteadiness on her feet due to that the last few days. She denies fevers, sweats, chills, denies sick contacts. Denies any new chest pains besides her stable angina. Denies any new dyspnea and has been able to walk up and down stairs. She has been having an occasional mild headache, but no lightheadedness. She denies any myalgias or arthralgias other than her hands. She had an MRI of the brain upon admission to look for metastases and this was negative. -She was admitted to medical/surgical floor for intractable nausea vomiting, likely secondary to ileus from anesthesia from recent procedure in the setting of chronic nausea secondary to chemotherapy -She was treated with metoclopramide 10 mg IV every 6 hours as needed and had significant improvement of her nausea and vomiting and had several loose stools as well -She was treated with gentle IV fluids -Her diet was advanced and she was tolerating regular diet at the time of discharge TSH was checked and was normal -No need for imaging at this time as there is no abdominal pain, no evidence of sepsis, and no abdominal tenderness on examination -She can be discharged home with a prescription for p.o. metoclopramide 10 mg q. before meals at bedtime as needed for nausea or vomiting -Follow-up with PCP (2) Hyperlipidemia: -Continue home simvastatin (3) Hypertension: Stable -Continue home metoprolol tartrate 75 mg p.o. twice daily, isosorbide 60 mg daily (4) Hypogammaglobulinemia: Receives weekly infusions of Hizentra which helps if in used to have frequent infections (5) Sjogren's disease: Continue home prednisone 3 mg daily, Evoxac 30 mg daily (6) Non-small cell lung cancer (NSCLC): Not in remission, with metastases to the lymph nodes previously, with recent biopsy on 06/24 showing adenocarcinoma of the right upper lobe mass, lymph node without cancer on biopsy -Defer further treatment decision to oncology -She was to have a thoracic surgery follow-up appointment this (7) Decreased diffusion capacity of lung: Has severely reduced DLCO on PFTs from 07/2017, otherwise spirometry is normal -Suspect due to Sjogren's disease or chronic lung disease? -Continue inhalers as needed -Follows with pulmonology Is not requiring oxygen here and had a 6-minute walk test within the last year that was normal (8) Osteoporosis: Continue Evista (9) History of coronary artery bypass graft: Stable, with stable angina -Continue home Ranexa, aspirin, statin, metoprolol, isosorbide (10) CAD (coronary artery disease), [place] coronary artery: Stable Status post four-vessel CABG in 2010 -Continue meds as above (11) Generalized weakness: Likely secondary to poor p.o. intake and intractable nausea vomiting Now improved (12) DVT prophylaxis: Heparin SQ was provided Disposition-stable for discharge to home Total Time Total Time Spent Total Time Spent (In Minutes): Greater than 30 minutes Total Time Includes: Examination of the Patient, Discharge Planning and Medication Reconciliation Discharge Plan Discharge Items Patient Disposition: Home - Self-Care Reason For Visit: NAUSEA, VOMITING, METASTATIC LUNG CA Discharge Diagnosis: Nausea, vomiting Condition: Good Discharge Goals: Decrease discomfort, Diagnostic testing, Learn about illness and Therapeutic intervention Activity: Resume your previous activity Bathing: No limitations Non-emergency contact: Primary Care Provider and Oncologist Call non-emergency contact if: you have any medication questions, your symptoms worsen and your temperature is above 101 Follow-up/Referrals: Dennis De La O DO [Physician] - (Please, follow up with Dr. De La O at the Cancer Center. *The nurse will call you with the appointment details. If you have any questions, call the office at [phone].) Evin Villalpando MD [Primary Care Provider] - 07/06/18 1:15 pm (Please, follow up with Dr. Preet Arango on ThursdayJuly 06 at 1:15 pm. *If you need to change this appointment, call the office at [phone].) Diet: Regular Addtl Provider Instructions: You were admitted with intractable nausea and vomiting which is most likely due to an ileus or paralyzed bowel from anesthesia after your procedure last week. This was improved with taking Reglan. You can continue to take this medication with each meal and at bedtime as needed for nausea. Please follow-up with your primary care physician and the oncologist as scheduled. Prescriptions: New metoclopramide HCl 10 mg tablet 10 mg PO ACHS PRN (Reason: nausea and vomiting) Qty: 20 RF: 0 Continued resveratrol 100 mg Capsule 300 mg PO QPM RF: 0 benzonatate 100 mg Capsule 100 mg PO TID PRN (Reason: Cough) RF: 0 hydrocodone-acetaminophen 5-325 mg Tablet 1 tab PO Q6H PRN (Reason: Pain) RF: 0 multivitamin Tablet 1 tab PO QPM RF: 0 potassium chloride 10 mEq Capsule, Extended Release 10 meq PO TID RF: 0 aspirin [Aspir-81] 81 mg Tablet,Delayed Release (Dr/Ec) 81 mg PO QAM RF: 0 simvastatin 40 mg Tablet 40 mg PO HS RF: 0 isosorbide mononitrate 60 mg Tablet Extended Release 24 Hr 60 mg PO QAM RF: 0 cevimeline 30 mg Capsule 30 mg PO TID RF: 0 nitroglycerin [Nitrostat] 0.4 mg Tablet, Sublingual 0.4 mg Sublingual UD PRN (Reason: Chest Pain) RF: 0 raloxifene 60 mg Tablet 60 mg PO QPM RF: 0 magnesium 250 mg Tablet 500 mg PO QAM RF: 0 epinephrine [EpiPen] 0.3 mg/0.3 mL Auto-Injector 0.3 mg IM Q3H PRN (Reason: PRN) RF: 0 albuterol sulfate [ProAir HFA] 90 mcg/actuation Hfa Aerosol Inhaler 2 puff INHALATION BID PRN (Reason: Wheezing) RF: 0 ondansetron 4 mg Tablet,Disintegrating 8 mg PO QID PRN (Reason: Nausea) RF: 0 Tarceva 25 mg Tablet 100 mg PO QPM RF: 0 calcium carbonate-vitamin D3 [Calcium 500 + D] 500 mg(1,250mg) -200 unit Tablet 1 tab PO BID RF: 0 Ranexa 500 mg Tablet Extended Release 12 Hr 500 mg PO BID RF: 0 Probiotic 3 billion cell Capsule 3,000 mmu cells PO DAILY RF: 0 metoprolol tartrate 75 mg Tablet 75 mg PO BID RF: 0 Immune Globulin 8 g INJ WK RF: 0 Changed prednisone 1 mg Tablet 3 mg PO DAILY Qty: 0 RF: 0 Stand-Alone Forms: [facility] Discharge Orders: Discharge Order (Routine); Ordered 06/30/18 Ordered By: Deborah Lynch Admission Data Admit Date/Time: 06/29/18 13:37 Attending Provider: Deborah Lynch Admit Provider: Bassam Agarwal Primary Care Provider: Evin Villalpando Service: Oncology Other Pending Studies at Discharge: No
[2018-06-30 17:03] VITALS: BP 122/77
[2018-06-30] MEDS ORDERED: MULTIVITAMIN TAB PO SCH (21:00)
[2018-06-30] MEDS ORDERED: SIMVASTATIN 40 MG TAB PO SCH (21:00)
[2018-06-30] MEDS ORDERED: RALOXIFENE HCL 60 MG TAB PO SCH (21:00)
[2018-06-30] MEDS ORDERED: ERLOTINIB PO SCH (22:00)
[2018-07-01] MEDS ORDERED: ERLOTINIB PO SCH (22:00)
== END 2018-06-30 17:41 | disposition home or self-care (01) | DRG 394 ==
LOC: 4E 13:37 → SUATTDRO 13:37

== ENCOUNTER 2018-07-10 09:58 | Inpatient (IN) ==
[2018-07-10] MEDS ORDERED: ASPIRIN CHEW 324 MG PO STA (10:28)
[2018-07-10] MEDS ORDERED: SODIUM CHLORIDE 0.9% 1000ML 1,000 ML IV SCH (10:30)
[2018-07-10 10:49] LABS: Basophils # (auto) 0.01 K/uL (0-0.2); Basophils % (auto) 0.1 %; Eosinophils # (auto) 0.07 K/uL (0-0.5); Hematocrit (blood only) 37.5 % (37-47); Hemoglobin 12.3 g/dL (12.0-16.0); Lymphocytes # (auto) 1.73 K/uL (1.2-3.4); Lymphocytes % (auto) 25.1 %; Mean Corpuscular Hgb Conc 32.8 g/dL (32-36); Mean Corpuscular Volume 96.4 fL (80-100); Mean Platelet Volume 10.1 fL (7.4-10.4); Monocytes # (auto) 0.94 K/uL (0.11-0.59); Monocytes % (auto) 13.6 %; Neutrophils # (auto) 4.15 K/uL (1.4-6.5); Neutrophils % (auto) 60.2 %; Platelet Count 301 K/uL (130-400); RDW Coefficient of Variation 13.7 % (11.5-14.5); RDW Standard Deviation 47.9 fL (36.4-46.3); Red Blood Count 3.89 M/uL (4.2-5.4)
[2018-07-10 10:56] LABS: Albumin Level 2.8 gm/dl (3.4-5.0); BUN Creatinine Ratio 25.1 (10-20); Calcium 8.2 mg/dl (8.5-10.1); Creatinine Clr Calc Pharmacy 29.8 ml/min; Est GFR (African American) 68.4
[2018-07-10 11:01] LABS: Albumin Globulin Ratio 0.7 (0.9-2); Bilirubin,Total 0.5 mg/dl (0.2-1); Globulin 4.1 gm/dl (2.5-4.0); Total Protein 6.9 gm/dl (6.4-8.2); Troponin I 0.024 ng/ml (0-0.045)
--- NOTE | 2018-07-10 11:20 | XRay Report ---
SINGLE VIEW CHEST CLINICAL HISTORY: Atypical chest pain. FINDINGS: An AP, portable, upright chest radiograph is compared to study dated 06/24/2018 and correlat ed with chest CT dated 05/19/2018. The examination is degraded by portable technique and patient rotat ion. A left subclavian central venous infusion port is unchanged in position. The patient is status p ost midline sternotomy. The cardiomediastinal silhouette is unremarkable, noting atherosclerotic calc ification of the thoracic aorta. The pulmonary vasculature is noncongested. Emphysema, chronic residu al thickening, and diffuse nodularity is similar to previous. Masslike consolidation in the right upp er lobe has significantly decreased as compared to previous. No large pleural effusion or pneumothora x is seen. The skeletal structures are osteopenic. The bony thorax is grossly intact. Cholecystectomy clips are seen in the right upper quadrant. IMPRESSION: 1. Masslike consolidation in the right upper lung has significantly decreased in size as compared to 06/24/2018. 2. Emphysema, chronic interstitial thickening, and diffuse nodularity is similar to previous. 3. No new foci of airspace consolidation are identified. No large pleural effusion is seen. Electronically signed by: Han Bolanos M.D. 07/10/2018 11:19 AM
[2018-07-10] MEDS ORDERED: METOCLOPRAMIDE HCL 10 MG TABLET PO PRN (13:00)
[2018-07-10] MEDS ORDERED: IMMUNE GLOBULIN INJ SCH (13:00)
[2018-07-10] MEDS ORDERED: ERLOTINIB 100 MG PO SCH (13:00)
[2018-07-10] MEDS ORDERED: NITROGLYCERIN SL 0.4 MG/TAB TAB SL PRN (13:00)
[2018-07-10] MEDS ORDERED: ERLOTINIB PO SCH ×2 (13:00→21:00)
[2018-07-10] MEDS ORDERED: ONDANSETRON 4 MG OD TAB PO PRN (13:00)
[2018-07-10] MEDS ORDERED: NSS + 20MEQ KCL 20 MEQ/1,000 ML BAG IV SCH (13:15)
[2018-07-10] MEDS ORDERED: CEVIMELINE 30 MG PO SCH (14:00)
[2018-07-10] MEDS ORDERED: ENOXAPARIN INJ 40 MG/0.4 ML SYR SQ SCH (16:32)
[2018-07-10] MEDS: NON-FORMULARY MEDICATION (Albuterol Hfa 2 PUFFS) INH SCH ×2 (16:40→17:32)
--- NOTE | 2018-07-10 16:57 | History & Physical Report ---
Date of Service July 10, 2018 Assessment & Plan (1) Substernal chest pain: Mrs. Vega is a 73 year old female with a history of CAD s/p CABG x 4 vessels 2010, Ischemic Cardiomyopathy (LVEF 45% to 50), Hypertension, Dyslipidemia, Metastatic NSCLC, Gastric Lymphoma(in remission), Sjogren's Sy ndrome, COPD, Chronic Nausea since starting Tarceva, Autoimmune Hepatitis, and Chronic Stable Angina Pectoris (exertional posterior thorax pain) who presented to [facility] today complaining of chest pain over the past couple of days off and on -- it is very dissimilar to her anginal pain. She denies any radiation of the discomfort and denies any associated nausea, vomiting, diaphoresis or dyspnea. -- Serial cardiac enzymes ordered. -- Suspect new incomplete RBBB is secondary to underlying lung disease. -- Continue Metoprolol Tartrate 75 mg bid. -- Continue Imdur 60 mg daily. -- Continue Ranexa 500 mg bid. -- Continue Aspirin 81 mg daily. -- Continue Simvastatin 40 mg daily Present on Admission?: Yes (2) Stable angina: CAD s/p CABG x 4 Vessels in December 2010. -- Still experiences exertional posterior thorax pain from time to time with over-exertion. -- This is her Stable Angina -- and its pattern has not changed. -- Continue Metoprolol Tartrate 75 mg bid. -- Continue Imdur 60 mg daily. -- Continue Ranexa 500 mg bid. -- Continue Aspirin 81 mg daily. -- Continue Simvastatin 40 mg daily. Present on Admission?: Yes (3) CAD, multiple vessel: As above. Present on Admission?: Yes (4) Non-small cell lung cancer (NSCLC): continue tarceva (5) Acute respiratory failure with hypoxia: continue supplemental O2 to keep POx>90% secondary to PNA and lung CA (6) HTN (hypertension): (7) Hyperlipemia: (8) Pneumonia: possible PNA multifocal vs spread/progression of lung CA -start Zosyn and Vanco given recent hospitalization -change HFA to Duonebs scheduled -continue O2 -could be post-obstructive PNA -consult Pulm -check procalcitonin History of Present Illness Chief Complaint: Chest Pain. Primary Care Provider: Evin Villalpando MD Mrs. Vega is a 73 year old female with a history of CAD s/p CABG x 4 vessels 2010, Ischemic Cardiomyopathy (LVEF 45% to 50), Hypertension, Dyslipidemia, [place] static NSCLC, Gastric Lymphoma(in remission), Sjogren's Syndrome, COPD, Chronic Nausea since starting Tarceva, Autoimmune Hepatitis, and Chronic Stable Angina Pectoris (exertional posterior thorax pain) who presented to [facility] today complaining of chest pain over the past couple of days off and on -- it is not her anginal pain. She denies any radiation of the discomfort and denies any associated nausea, vomiting, diaphoresis or dyspnea. She does admit to chronic nausea, but relates that to Tarceva. This pattern has not changed recently. Patient states that her appetite is stable, but that she eats very snacks about every hour because if she eats too much, she becomes more nauseated. Patient also uses Ensure and eats a lot of fruit. Patient denies any shortness of breath at rest, unusual dyspnea exertion, orthopnea, or PND. She denies any palpitations, tachy palpitations, syncope, or near syncope. Thus far, her troponin I level is 0.024 ng/mL. Her EKG shows a new Incomplete RBBB pattern -- which is likely secondary to her underlying lung disease. Allergies Allergy/AdvReac Type Severity Reaction Status Date / Time No Known Allergies Allergy Verified 07/10/18 11:49 Home Medications Home Medications Medication Instructions Recorded Confirmed Type Immune Globulin 8 g INJ WK 06/21/18 07/10/18 History Probiotic 3,000 mmu cells PO PM 06/21/18 07/10/18 History Ranexa 500 mg PO BID 06/21/18 07/10/18 History albuterol sulfate [ProAir HFA] 2 puff INHALATION QID 06/21/18 07/10/18 History aspirin [Aspir-81] 81 mg PO QDL 06/21/18 07/10/18 History calcium carbonate-vitamin D3 1 tab PO BID 06/21/18 07/10/18 History [Calcium 500 + D] cevimeline 30 mg PO TID 06/21/18 07/10/18 History epinephrine [EpiPen] 0.3 mg IM Q3H PRN 06/21/18 07/10/18 History isosorbide mononitrate 60 mg PO QAM 06/21/18 07/10/18 History magnesium 500 mg PO QAM 06/21/18 07/10/18 History metoprolol tartrate 75 mg PO BID 06/21/18 07/10/18 History multivitamin 1 tab PO QPM 06/21/18 07/10/18 History nitroglycerin [Nitrostat] 0.4 mg SUBLINGUAL UD PRN 06/21/18 07/10/18 History ondansetron 8 mg PO QID PRN 06/21/18 07/10/18 History potassium chloride 10 meq PO TID 06/21/18 07/10/18 History raloxifene 60 mg PO HS 06/21/18 07/10/18 History simvastatin 40 mg PO HS 06/21/18 07/10/18 History benzonatate 100 mg PO TID PRN 06/29/18 07/10/18 History hydrocodone-acetaminophen 1 tab PO Q6H PRN 06/29/18 07/10/18 History resveratrol 300 mg PO HS 06/29/18 07/10/18 History metoclopramide HCl 10 mg PO ACHS PRN #20 tab 06/30/18 07/10/18 Rx erlotinib [Tarceva] 75 mg PO HS 07/10/18 07/10/18 History prednisone 3 mg PO QAM 07/10/18 07/10/18 History Past Med/Surg History Medical History Sjogren's disease (Chronic) Non-small cell lung cancer (NSCLC) Stable angina CAD (coronary artery disease), [place] coronary artery With stable angina Decreased diffusion capacity of lung GERD (gastroesophageal reflux disease) DIET CONTROLLED History of lung cancer DX 1 YEAR AGO. 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 Surgical History Coronary artery bypass grafts x 4 (Chronic 06/13/12) History of arthroscopy RIGHT KNEE MENISCUS History of cholecystectomy History of colonoscopy History of coronary artery bypass graft 4 VESSEL, C 6 YEARS AGO History of hysterectomy History of lung biopsy History of surgical removal of meniscus of knee Family History Other Family history non-contributory Social History Preferred Language: Irish Communication Ability: Effective Needle Loom Tender Required: No Beliefs That Will Affect Care: None marital status: Current Living Situation: Spouse current occupational status: retired 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 HEENT: Head is atraumatic, normocephalic. Temporal wasting is noted. EOMs intact. Sclerae anicteric. Facies symmetric. No perioral cyanosis. Neck: No JVD. Carotid upstrokes +2 bilaterally without bruits. JVP is at the level of the clavicle sitting upright. Chest and Lungs: Diminished breath sounds throughout, no obvious wheezes, rales, rhonchi. CVS: S1 and S2 are regular with an S4 gallop. No obvious murmurs or rubs. PMI is nondisplaced. No lifts, heaves, or thrills. No abdominal aortic or renal bruits. Abdominal Exam: Bowel sounds present. No masses, organomegaly, or tenderness. Extremities: No clubbing, cyanosis, or edema. Intact posterior tibial and radial pulses bilaterally. Neurologic Exam: Patient is awake, alert, and oriented. Pleasant and cooperative. Answers questions appropriately. Speech is clear. Normal movement in all 4 extremities. Gait pattern was not assessed. EKG 07/10/18: -- NSR at 95 bpm with an incomplete RBBB. -- Possible Right ventricular hypertrophy. -- Prolonged QT. -- Abnormal ECG: -- When compared with ECG of 13-DEC-2017 17:00: -- Incomplete right bundle branch block is now present. -- QT has lengthened. Chest X-Ray 07/10/18: 1. Masslike consolidation in the right upper lung has significantly decreased in size as compared to 06/24/2018. 2. Emphysema, chronic interstitial thickening, and diffuse nodularity is similar to previous. 3. No new foci of airspace consolidation are identified. No large pleural effusion is seen. Results & Data Laboratory Results Laboratory Results - last 24 hr 07/10/18 07/10/18 10:20 10:20 WBC 6.90 RBC 3.89 L Hgb 12.3 Hct 37.5 MCV 96.4 MCH 31.6 MCHC 32.8 RDW Std Deviation 47.9 H RDW Coeff of Marlene 13.7 Plt Count 301 MPV 10.1 Immature Gran % (Auto) 0.0 Neut % (Auto) 60.2 Lymph % (Auto) 25.1 Rich % (Auto) 13.6 Eos % (Auto) 1.0 Baso % (Auto) 0.1 Immature Gran # (Auto) 0.00 Neut # (Auto) 4.15 Lymph # (Auto) 1.73 Rich # (Auto) 0.94 H Eos # (Auto) 0.07 Baso # (Auto) 0.01 Sodium 136 Potassium 4.0 Chloride 103 Carbon Dioxide 29 Anion Gap 4.0 BUN 24 H Creatinine 0.95 Est Cr Clr Drug Dosing 29.8 Est GFR ( Amer) 68.4 Est GFR (Non-Af Amer) 59.0 BUN/Creatinine Ratio 25.1 H Glucose 155 H Calcium 8.2 L Total Bilirubin 0.5 AST 34 ALT 21 Alkaline Phosphatase 64 Troponin I 0.024 Total Protein 6.9 Albumin 2.8 L Globulin 4.1 H Albumin/Globulin Ratio 0.7 L Lipase 127 Medications Administered Active Medications Generic Name Dose Route Start Last Admin Trade Name Freq PRN Reason Stop Dose Admin Hydrocodone Bitart/Acetaminophen 1 tab 07/10/18 13:00 Ranger 5/325 PO 07/24/18 12:59 Q6H PRN Pain Aspirin 81 mg 07/11/18 11:30 Ecotrin Ectab PO 08/10/18 11:29 QDL RANI Benzonatate 100 mg 07/10/18 13:00 Tessalon Perle PO 08/09/18 12:59 TID PRN Cough Enoxaparin Sodium 40 mg 07/10/18 16:32 Lovenox SQ 08/09/18 16:31 Q24H RANI Enoxaparin Sodium 40 mg 07/10/18 16:32 Lovenox SQ 08/09/18 16:31 Q24H [facility] Potassium Chloride/Sodium Chloride 20 meq in 1,000 mls @ 50 mls/hr 07/10/18 13:15 Normal Saline W/20 Meq Kcl IV 08/09/18 13:14 .Q20H [facility] Isosorbide Mononitrate 60 mg 07/11/18 09:00 Imdur Extended Rel PO 08/10/18 08:59 QAM [facility] Metoclopramide HCl 10 mg 07/10/18 13:00 Reglan PO 08/09/18 12:59 ACHS PRN nausea and vomiting Metoprolol Tartrate 75 mg 07/10/18 21:00 Lopressor PO 08/09/18 20:59 BID [facility] Multivitamins 1 tab 07/10/18 21:00 Multivitamin Tab PO 08/09/18 20:59 QPM [facility] Nitroglycerin 0.4 mg 07/10/18 13:00 Nitrostat SL 08/09/18 12:59 UD PRN Chest Pain Non-Formulary Medication 2 puffs 07/10/18 13:00 07/10/18 16:40 Albuterol Hfa INH 08/09/18 12:59 Not Given QID [facility] Non-Formulary Medication 30 mg 07/10/18 14:00 07/10/18 16:43 Cevimeline PO 08/09/18 13:59 Not Given TID RANI Non-Formulary Medication 75 mg 07/10/18 13:00 07/10/18 16:40 Erlotinib [Tarceva] PO 08/09/18 12:59 Not Given Q2D RANI Non-Formulary Medication 100 mg 07/10/18 13:00 07/10/18 16:40 Erlotinib [Tarceva] PO 08/09/18 12:59 Not Given Q2D RANI Non-Formulary Medication 1 tab 07/10/18 21:00 Calcium Carbonate-Vitamin D3 [Calcium 500 + D] PO 08/09/18 20:59 BID RANI Non-Formulary Medication 8 gm 07/10/18 13:00 Immune Globulin INJ 08/09/18 12:59 WK RANI Non-Formulary Medication 3,000 mmu cells 07/10/18 21:00 Lactobacillus Combination No.4 [Probiotic] PO 08/09/18 20:59 PM RANI Non-Formulary Medication 500 mg 07/11/18 09:00 Magnesium PO 08/10/18 08:59 QAM RANI Non-Formulary Medication 300 mg 07/10/18 21:00 Resveratrol PO 08/09/18 20:59 HS [facility] Ondansetron HCl 8 mg 07/10/18 13:00 07/10/18 13:19 Zofran Odt PO 08/09/18 12:59 8 mg QID PRN Administration Nausea Potassium Chloride 10 meq 07/10/18 14:00 Klor-Con M10 PO 08/09/18 13:59 TID RANI Prednisone 3 mg 07/11/18 09:00 Prednisone PO 08/10/18 08:59 QAM [facility] Raloxifene HCl 60 mg 07/10/18 21:00 Evista PO 08/09/18 20:59 HS [facility] Ranolazine 500 mg 07/10/18 21:00 Ranexa PO 08/09/18 20:59 BID RANI Simvastatin 40 mg 07/10/18 21:00 Zocor PO 08/09/18 20:59 HS [facility] Supervising Physician Co-Signing Physician Notes PA Supervision Note: I personally saw and examined the patient. I verified all abraham points and agree with CHARLES Keenan with the following exceptions and/or additions: Pt presented with worsening SOB and substernal chest pain, acute hypoxia and chronic productive cough. History as above Vitals reviewed NAD RRR no mgr diffuse rhonchi and wheezing bilat abd soft NT ND Ext no edema Labs and rads reviewed Treat for possible post-obstructive PNA vs HCAP-cover for gram negatives and MRSA-check MRSA swab -continue supplemental O2-pt reports this has made a tremendous improvement in her condition-POx was 88% on RA, now improved on O2 -nebs -Pulm consult r/o ACS with serial trop Deborah Lynch MD
--- NOTE | 2018-07-10 17:25 | Emergency Department Note ---
Entered by Blessing Kolb acting as a scribe for Ginger Malone MD History of Present Illness General Chief complaint: Chest Pain Stated complaint: CHEST PAIN Time Seen by Provider: 07/10/18 10:07 Source: patient History of Present Illness Onset (ago): day(s) (this morning) Location: chest Pain Consistency: + other (episode) Maximum Pain Intensity: 8 Quality: + other (an elephant sitting on her chest ) Relieved By: + medication (Nitroglycerin) Exacerbated By: not by other (deep breathing) Associated symptoms: + cough, + nausea/vomiting (nausea), + shortness of breath and + other (dizziness); no fever/chills (fever) The patient is a 73 year old female who presents to the Emergency Room with complaints of an episode of chest pain starting this morning. The patient states that she has a history of lung cancer and a CABG. She states that this morning she noticed that she was having chest pain in the middle of her chest and dizziness. She states that the chest pain feels like an elephant sitting on her chest. She reports that she took a Nitroglycerin and it helped some. She states that she noticed that she has also been more short of breath than usual. The patient notes that this is different than when she needed a CABG because her pain was all in her back and she had no pain in her chest. The patient complains of a nausea and a cough. She notes that the cough isnt anything new though. She notes that she is on a baby Aspirin, but denies any other blood thinners. The patient denies a history of an PA, a history of blood clots, fever, wearing oxygen at home, and deep breathing making the pain worse. Home Medications Home Medications Medication Instructions Recorded Confirmed Type Immune Globulin 8 g INJ WK 06/21/18 07/10/18 History Probiotic 3,000 mmu cells PO PM 06/21/18 07/10/18 History Ranexa 500 mg PO BID 06/21/18 07/10/18 History albuterol sulfate [ProAir HFA] 2 puff INHALATION QID 06/21/18 07/10/18 History aspirin [Aspir-81] 81 mg PO QDL 06/21/18 07/10/18 History calcium carbonate-vitamin D3 1 tab PO BID 06/21/18 07/10/18 History [Calcium 500 + D] cevimeline 30 mg PO TID 06/21/18 07/10/18 History epinephrine [EpiPen] 0.3 mg IM Q3H PRN 06/21/18 07/10/18 History isosorbide mononitrate 60 mg PO QAM 06/21/18 07/10/18 History magnesium 500 mg PO QAM 06/21/18 07/10/18 History metoprolol tartrate 75 mg PO BID 06/21/18 07/10/18 History multivitamin 1 tab PO QPM 06/21/18 07/10/18 History nitroglycerin [Nitrostat] 0.4 mg SUBLINGUAL UD PRN 06/21/18 07/10/18 History ondansetron 8 mg PO QID PRN 06/21/18 07/10/18 History potassium chloride 10 meq PO TID 06/21/18 07/10/18 History raloxifene 60 mg PO HS 06/21/18 07/10/18 History simvastatin 40 mg PO HS 06/21/18 07/10/18 History benzonatate 100 mg PO TID PRN 06/29/18 07/10/18 History hydrocodone-acetaminophen 1 tab PO Q6H PRN 06/29/18 07/10/18 History resveratrol 300 mg PO HS 06/29/18 07/10/18 History metoclopramide HCl 10 mg PO ACHS PRN #20 tab 06/30/18 07/10/18 Rx erlotinib [Tarceva] 75 mg PO HS 07/10/18 07/10/18 History prednisone 3 mg PO QAM 07/10/18 07/10/18 History Allergies Allergy/AdvReac Type Severity Reaction Status Date / Time No Known Allergies Allergy Verified 07/10/18 11:49 Past Med/Surg History Medical History Sjogren's disease (Chronic) Non-small cell lung cancer (NSCLC) (Acute) Stable angina CAD (coronary artery disease), [place] coronary artery With stable angina Decreased diffusion capacity of lung GERD (gastroesophageal reflux disease) DIET CONTROLLED History of lung cancer DX 1 YEAR AGO. 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 and A total of 10 systems reviewed and were otherwise negative Physical Exam Vital Signs Vital Signs - 24 hr 07/12/18 11:16 07/12/18 11:34 07/12/18 15:08 Temperature 36.7 C 37.0 C Temperature Source Oral Oral Pulse Rate [Finger] 75 82 82 Respiratory Rate 16 18 18 Respiratory Effort / Characteristics Spontaneous Respiratory Depth Respiratory Pattern Blood Pressure [Left Arm] Blood Pressure [Right Arm] 130/76 131/77 Blood Pressure Mean [Left Arm] Blood Pressure Mean [Right Arm] 94 95 Blood Pressure Position [Right Arm] Sitting Sitting Pulse Oximetry 97 95 94 Oxygen Delivery Method Room Air Room Air Room Air 07/12/18 15:12 07/12/18 19:29 07/12/18 20:05 Temperature 37.0 C Temperature Source Oral Pulse Rate [Finger] 72 85 Respiratory Rate 18 16 Respiratory Effort / Characteristics Non-Labored Accessory Muscle Use Non-Labored Spontaneous SOB on Exertion Respiratory Depth Normal Respiratory Pattern Regular Blood Pressure [Left Arm] Blood Pressure [Right Arm] 159/83 H Blood Pressure Mean [Left Arm] Blood Pressure Mean [Right Arm] 108 Blood Pressure Position [Right Arm] Lying Pulse Oximetry 96 94 Oxygen Delivery Method Room Air Room Air Room Air 07/12/18 23:47 07/13/18 00:00 07/13/18 03:38 Temperature 36.6 C 36.7 C Temperature Source Oral Oral Pulse Rate [Finger] 83 80 Respiratory Rate 18 16 Respiratory Effort / Characteristics Spontaneous SOB on Exertion Respiratory Depth Normal Respiratory Pattern Regular Blood Pressure [Left Arm] 164/90 H Blood Pressure [Right Arm] 162/87 H Blood Pressure Mean [Left Arm] 114 Blood Pressure Mean [Right Arm] 112 Blood Pressure Position [Right Arm] Pulse Oximetry 94 94 Oxygen Delivery Method Room Air Room Air 07/13/18 07:13 07/13/18 07:42 Temperature 36.7 C Temperature Source Oral Pulse Rate [Finger] 72 82 Respiratory Rate 14 18 Respiratory Effort / Characteristics Non-Labored Spontaneous Respiratory Depth Respiratory Pattern Blood Pressure [Left Arm] Blood Pressure [Right Arm] 147/82 H Blood Pressure Mean [Left Arm] Blood Pressure Mean [Right Arm] 103 Blood Pressure Position [Right Arm] Sitting Pulse Oximetry 93 90 Oxygen Delivery Method Room Air Room Air Vital signs reviewed. General: Chronically ill-appearing, cachectic, in no significant distress. HEENT: No scleral icterus, PERRLA, neck supple. Atraumatic. Cardiovascular: Regular rate and rhythm, no extra sounds. Pulmonary: Coarse breath sounds bilaterally, normal work of breathing. On nasal cannula oxygen saturating in the mid 90s. Dry cough. Chest: Post surgical mid sternotomy scar. Abdomen: Soft, nontender, nondistended, positive bowel sounds. Musculoskeletal: Atraumatic, no peripheral edema. Neurologic: Patient awake alert and oriented x 3. Skin: Warm, dry, no rash Course 1017: Past medical records reviewed. The patient was evaluated in room C4, and a complete history and physical examination were performed. 1328: I reevaluated the patient and updated her on her test results. I discussed the treatment plan with her. She verbally agrees and understands. 1330: I reviewed the patient's case with SHIRLEY Sesay Hospitalist. He will evaluate the patient for further management. Consultations Consultation #1: I reviewed the patient's case with SHIRLEY eSsay Hospitalist. He will evaluate the patient for further management. Time: 13:30 Administered Medications Hydrocodone Bitart/Acetaminophen ([place] 5/325) 1 tab PO Q6H PRN PRN Reason: Pain Stop: 07/24/18 12:59 Last Admin: 07/11/18 20:00 Dose: 1 tab Documented by: [id number] Admin: 07/11/18 03:46 Dose: 1 tab Documented by: [id number] Albuterol (Duoneb) 3 ml NEB QIDR RANI Stop: 08/09/18 21:19 Last Admin: 07/13/18 07:13 Dose: 3 ml Documented by: [id number] Admin: 07/12/18 19:53 Dose: Not Given Documented by: [id number] Admin: 07/12/18 15:11 Dose: 3 ml Documented by: [id number] Admin: 07/12/18 11:15 Dose: 3 ml Documented by: [id number] Admin: 07/12/18 07:18 Dose: 3 ml Documented by: [id number] Admin: 07/11/18 19:51 Dose: 3 ml Documented by: [id number] Admin: 07/11/18 14:47 Dose: 3 ml Documented by: [id number] Admin: 07/11/18 11:04 Dose: 3 ml Documented by: [id number] Admin: 07/11/18 07:06 Dose: 3 ml Documented by: [id number] Admin: 07/11/18 04:53 Dose: 3 ml Documented by: [id number] Admin: 07/10/18 21:32 Dose: 3 ml Documented by: [id number] Aspirin (Ecotrin Ectab) 81 mg PO QDL RANI Stop: 08/10/18 11:29 Last Admin: 07/12/18 11:12 Dose: 81 mg Documented by: [id number] Admin: 07/11/18 11:13 Dose: 81 mg Documented by: [id number] Benzonatate (Tessalon Perle) 100 mg PO TID PRN PRN Reason: Cough Stop: 08/09/18 12:59 Last Admin: 07/12/18 14:47 Dose: 100 mg Documented by: [id number] Admin: 07/11/18 21:22 Dose: 100 mg Documented by: [id number] Cevimeline HCl (Cevimeline Hcl) 1 ea PO TID RANI; Protocol Stop: 08/09/18 20:59 Last Admin: 07/13/18 07:30 Dose: 1 ea Documented by: [id number] Admin: 07/12/18 21:12 Dose: 1 ea Documented by: [id number] Admin: 07/12/18 15:37 Dose: 1 ea Documented by: [id number] Admin: 07/12/18 08:03 Dose: 1 ea Documented by: [id number] Admin: 07/11/18 21:36 Dose: 1 ea Documented by: [id number] Admin: 07/11/18 14:57 Dose: 1 ea Documented by: [id number] Admin: 07/11/18 07:44 Dose: 1 ea Documented by: [id number] Admin: 07/10/18 21:10 Dose: 1 ea Documented by: [id number] Doxycycline Hyclate (Vibramycin) 100 mg PO BID RANI; Protocol Stop: 07/19/18 20:59 Last Admin: 07/13/18 07:29 Dose: 100 mg Documented by: [id number] Admin: 07/12/18 21:08 Dose: 100 mg Documented by: [id number] Erlotinib (Tarceva) 3 ea PO DAILY@2200 RANI; Protocol Stop: 08/09/18 21:59 Last Admin: 07/12/18 21:11 Dose: 3 ea Documented by: [id number] Admin: 07/11/18 21:36 Dose: 3 ea Documented by: [id number] Admin: 07/10/18 21:11 Dose: 3 ea Documented by: [id number] Heparin Sodium (Porcine) (Heparin Sodium (Porcine)) 5,000 units SQ Q12 RANI Stop: 08/09/18 21:59 Last Admin: 07/13/18 07:30 Dose: 5,000 units Documented by: [id number] Cosigned by: [id number] Admin: 07/12/18 21:07 Dose: 5,000 units Documented by: [id number] Cosigned by: [id number] Admin: 07/12/18 08:04 Dose: 5,000 units Documented by: [id number] Cosigned by: [id number] Admin: 07/11/18 20:07 Dose: 5,000 units Documented by: [id number] Cosigned by: [id number] Admin: 07/11/18 07:50 Dose: 5,000 units Documented by: [id number] Cosigned by: [id number] Admin: 07/10/18 22:00 Dose: Not Given Documented by: [id number] Prochlorperazine 5 mg/ Syringe 5 mls @ 5 mls/min IV Q4H PRN PRN Reason: Nausea And Vomiting Stop: 08/10/18 03:17 Last Admin: 07/11/18 03:51 Dose: 5 mls/min Documented by: [id number] Ioversol (Optiray 320 125ml) 94 ml IV ONCE PRN PRN Reason: Interaction Checking Stop: 07/14/18 19:43 Last Admin: 07/10/18 19:44 Dose: 94 ml Documented by: [id number] Isosorbide Mononitrate (Imdur Extended Rel) 60 mg PO QAM [facility] Stop: 08/10/18 08:59 Last Admin: 07/13/18 08:06 Dose: 60 mg Documented by: [id number] Admin: 07/12/18 08:03 Dose: 60 mg Documented by: [id number] Admin: 07/11/18 07:47 Dose: 60 mg Documented by: [id number] Magnesium Oxide (Mag-Ox) 400 mg PO 1800 RANI; Protocol Stop: 08/09/18 20:59 Last Admin: 07/12/18 16:54 Dose: 400 mg Documented by: [id number] Metoprolol Tartrate (Lopressor) 75 mg PO BID RANI Stop: 08/09/18 20:59 Last Admin: 07/13/18 08:05 Dose: 75 mg Documented by: [id number] Admin: 07/12/18 21:10 Dose: 75 mg Documented by: [id number] Admin: 07/12/18 08:03 Dose: 75 mg Documented by: [id number] Admin: 07/11/18 20:04 Dose: 75 mg Documented by: [id number] Admin: 07/11/18 07:47 Dose: 75 mg Documented by: [id number] Admin: 07/10/18 20:09 Dose: 75 mg Documented by: [id number] Morphine Sulfate (Morphine Sulfate) 2 mg IV Q4 PRN PRN Reason: Pain Stop: 07/26/18 18:27 Last Admin: 07/12/18 23:00 Dose: 2 mg Documented by: [id number] Admin: 07/12/18 18:40 Dose: 2 mg Documented by: [id number] Multivitamins (Multivitamin Tab) 1 tab PO QPM RANI Stop: 08/09/18 20:59 Last Admin: 07/12/18 21:09 Dose: 1 tab Documented by: [id number] Admin: 07/11/18 20:06 Dose: 1 tab Documented by: [id number] Admin: 07/10/18 20:12 Dose: 1 tab Documented by: [id number] Multivitamins/Minerals (Caltrate Plus) 1 tab PO 0600,1800 RANI; Protocol Stop: 08/09/18 20:59 Last Admin: 07/13/18 06:10 Dose: 1 tab Documented by: [id number] Admin: 07/12/18 16:55 Dose: 1 tab Documented by: [id number] Ondansetron HCl (Zofran) 4 mg PO TIDM RNAI Stop: 08/10/18 16:59 Last Admin: 07/13/18 07:31 Dose: 4 mg Documented by: [id number] Admin: 07/12/18 16:54 Dose: 4 mg Documented by: [id number] Admin: 07/12/18 11:11 Dose: 4 mg Documented by: [id number] Admin: 07/12/18 07:25 Dose: 4 mg Documented by: [id number] Admin: 07/11/18 18:25 Dose: Not Given Documented by: [id number] Potassium Chloride (Klor-Con M10) 10 meq PO TID RANI Stop: 08/09/18 13:59 Last Admin: 07/13/18 07:30 Dose: 10 meq Documented by: [id number] Admin: 07/12/18 21:09 Dose: 10 meq Documented by: [id number] Admin: 07/12/18 15:37 Dose: 10 meq Documented by: [id number] Admin: 07/12/18 08:03 Dose: 10 meq Documented by: [id number] Admin: 07/11/18 20:05 Dose: 10 meq Documented by: [id number] Admin: 07/11/18 16:36 Dose: 10 meq Documented by: [id number] Admin: 07/11/18 07:47 Dose: 10 meq Documented by: [id number] Admin: 07/10/18 20:12 Dose: 10 meq Documented by: [id number] Admin: 07/10/18 18:54 Dose: 10 meq Documented by: [id number] Prednisone (Prednisone) 40 mg PO QAM RANI Stop: 08/12/18 08:59 Last Admin: 07/13/18 07:30 Dose: 40 mg Documented by: [id number] Raloxifene HCl (Evista) 60 mg PO HS RANI Stop: 08/09/18 20:59 Last Admin: 07/12/18 21:09 Dose: 60 mg Documented by: [id number] Admin: 07/11/18 20:05 Dose: 60 mg Documented by: [id number] Admin: 07/10/18 20:09 Dose: 60 mg Documented by: [id number] Ranolazine (Ranexa) 500 mg PO BID RANI Stop: 08/09/18 20:59 Last Admin: 07/13/18 07:29 Dose: 500 mg Documented by: [id number] Admin: 07/12/18 21:10 Dose: 500 mg Documented by: [id number] Admin: 07/12/18 08:03 Dose: 500 mg Documented by: [id number] Admin: 07/11/18 20:03 Dose: 500 mg Documented by: [id number] Admin: 07/11/18 09:22 Dose: 500 mg Documented by: [id number] Admin: 07/10/18 20:11 Dose: 500 mg Documented by: [id number] Saccharomyces Boulardii (Florastor) 250 mg PO PM RANI Stop: 08/09/18 20:59 Last Admin: 07/12/18 21:08 Dose: 250 mg Documented by: [id number] Admin: 07/11/18 20:04 Dose: 250 mg Documented by: [id number] Admin: 07/10/18 20:09 Dose: 250 mg Documented by: [id number] Simvastatin (Zocor) 40 mg PO HS RANI Stop: 08/09/18 20:59 Last Admin: 07/12/18 23:00 Dose: 40 mg Documented by: [id number] Admin: 07/11/18 20:03 Dose: 40 mg Documented by: [id number] Admin: 07/10/18 20:13 Dose: 40 mg Documented by: [id number] Discontinued Medications Albuterol (Ventolin Hfa) 2 puffs INH QID RANI Stop: 08/09/18 20:59 Last Admin: 07/10/18 20:13 Dose: 60 puffs Documented by: [id number] Aspirin (Aspirin) 324 mg PO NOW STA Stop: 07/10/18 10:29 Last Admin: 07/10/18 10:37 Dose: 324 mg Documented by: [id number] Hydrox/Mg Hydrox/Simethicone 18 ml/ Lidocaine HCl 6 ml/ BARCODE IDENTIFIER 1 ea 0 ml PO ONE ONE Stop: 07/12/18 17:11 Last Admin: 07/12/18 17:59 Dose: 24 ml Documented by: [id number] Enoxaparin Sodium (Lovenox) 40 mg SQ Q24H RANI Stop: 08/09/18 16:31 Last Admin: 07/10/18 17:32 Dose: Not Given Documented by: [id number] Sodium Chloride (Nss 1000ml) 1,000 mls @ 125 mls/hr IV .Q8H RANI Stop: 08/09/18 10:29 Last Infusion: 07/10/18 16:46 Dose: 0 mls/hr Documented by: [id number] Admin: 07/10/18 10:37 Dose: 125 mls/hr Documented by: [id number] Potassium Chloride/Sodium Chloride (Normal Saline W/20 Meq Kcl) 20 meq in 1,000 mls @ 50 mls/hr IV .Q20H RANI Stop: 08/09/18 17:44 Last Admin: 07/12/18 16:15 Dose: Not Given Documented by: [id number] Infusion: 07/12/18 11:00 Dose: 0 mls/hr Documented by: [id number] Admin: 07/11/18 14:59 Dose: 50 mls/hr Documented by: [id number] Infusion: 07/11/18 14:54 Dose: 50 mls/hr Documented by: [id number] Admin: 07/10/18 18:54 Dose: 50 mls/hr Documented by: [id number] Vancomycin HCl 1,000 mg/ (Sodium Chloride) 270 mls @ 125 mls/hr IV ONE ONE Stop: 07/10/18 23:54 Last Infusion: 07/11/18 00:44 Dose: 0 mls/hr Documented by: [id number] Admin: 07/10/18 21:59 Dose: 125 mls/hr Documented by: [id number] Piperacillin Sod/Tazobactam (Sod 3.375 gm/ Dextrose) 115 mls @ 28.75 mls/hr IV Q8H RANI Stop: 07/18/18 03:59 Last Admin: 07/12/18 16:03 Dose: Not Given Documented by: [id number] Infusion: 07/12/18 08:42 Dose: 0 mls/hr Documented by: [id number] Admin: 07/12/18 04:41 Dose: 28.7 mls/hr Documented by: [id number] Infusion: 07/12/18 00:15 Dose: 0 mls/hr Documented by: [id number] Admin: 07/11/18 20:14 Dose: 28.7 mls/hr Documented by: [id number] Infusion: 07/11/18 17:13 Dose: 0 mls/hr Documented by: [id number] Admin: 07/11/18 13:13 Dose: 28.8 mls/hr Documented by: [id number] Infusion: 07/11/18 07:54 Dose: 0 mls/hr Documented by: [id number] Admin: 07/11/18 03:54 Dose: 28.8 mls/hr Documented by: [id number] Piperacillin Sod/Tazobactam (Sod 3.375 gm/ Dextrose) 115 mls @ 230 mls/hr IV NOW ONE; Protocol Stop: 07/10/18 22:29 Last Infusion: 07/10/18 22:40 Dose: 0 mls/hr Documented by: [id number] Admin: 07/10/18 21:58 Dose: 230 mls/hr Documented by: [id number] Vancomycin HCl 500 mg/ Sodium (Chloride) 110 mls @ 88 mls/hr IV Q24H RANI; Protocol Stop: 07/18/18 17:59 Last Infusion: 07/11/18 19:54 Dose: 0 mls/hr Documented by: [id number] Admin: 07/11/18 18:26 Dose: 88 mls/hr Documented by: [id number] Methylprednisolone 40 mg/ (Syringe) 0.64 mls @ 1.5 mls/min IV Q12H RANI Stop: 08/10/18 11:59 Last Admin: 07/12/18 16:03 Dose: Not Given Documented by: [id number] Admin: 07/12/18 00:57 Dose: 1.5 mls/min Documented by: [id number] Admin: 07/11/18 13:13 Dose: 1.5 mls/min Documented by: [id number] Ketorolac Tromethamine (Toradol) 15 mg IV NOW ONE Stop: 07/11/18 21:18 Last Admin: 07/11/18 21:34 Dose: 15 mg Documented by: [id number] Magnesium Oxide (Mag-Ox) 400 mg PO PM RANI Stop: 08/09/18 20:59 Last Admin: 07/11/18 20:03 Dose: 400 mg Documented by: [id number] Admin: 07/10/18 20:10 Dose: 400 mg Documented by: [id number] Multivitamins/Minerals (Caltrate Plus) 1 tab PO BID RANI Stop: 08/09/18 20:59 Last Admin: 07/12/18 08:02 Dose: 1 tab Documented by: [id number] Admin: 07/11/18 20:04 Dose: 1 tab Documented by: [id number] Admin: 07/11/18 07:47 Dose: 1 tab Documented by: [id number] Admin: 07/10/18 20:08 Dose: 1 tab Documented by: [id number] Non-Formulary Medication (Albuterol Hfa) 2 puffs INH QID [facility] Stop: 08/09/18 12:59 Last Admin: 07/10/18 17:32 Dose: Not Given Documented by: [id number] Admin: 07/10/18 16:40 Dose: Not Given Documented by: [id number] Non-Formulary Medication (Cevimeline) 30 mg PO TID [facility] Stop: 08/09/18 13:59 Last Admin: 07/10/18 16:43 Dose: Not Given Documented by: [id number] Non-Formulary Medication (Erlotinib [Tarceva]) 75 mg PO Q2D [facility] Stop: 08/09/18 12:59 Last Admin: 07/10/18 16:40 Dose: Not Given Documented by: [id number] Non-Formulary Medication (Erlotinib [Tarceva]) 100 mg PO Q2D [facility] Stop: 08/09/18 12:59 Last Admin: 07/10/18 16:40 Dose: Not Given Documented by: [id number] Ondansetron HCl (Zofran Odt) 8 mg PO QID PRN PRN Reason: Nausea Stop: 08/09/18 12:59 Last Admin: 07/10/18 13:19 Dose: 8 mg Documented by: [id number] Ondansetron HCl (Zofran) 4 mg IV Q6H [facility] Stop: 08/09/18 19:59 Last Admin: 07/11/18 16:36 Dose: 4 mg Documented by: [id number] Admin: 07/11/18 11:12 Dose: 4 mg Documented by: [id number] Admin: 07/11/18 07:43 Dose: 4 mg Documented by: [id number] Admin: 07/11/18 01:45 Dose: 4 mg Documented by: [id number] Admin: 07/10/18 21:13 Dose: 4 mg Documented by: [id number] Prednisone (Prednisone) 3 mg PO QAM [facility] Stop: 08/10/18 08:59 Last Admin: 07/12/18 08:04 Dose: 3 mg Documented by: [id number] Admin: 07/11/18 07:45 Dose: 3 mg Documented by: [id number] Medical Decision Making Differential Diagnosis Differential diagnosis: Etiologies such as infections, reactive airway disease, COPD, pneumonia, pleural effusion, pulmonary edema, ARDS, pneumothorax, CHF, cardiac ischemia, cardiac tamponade, dysrhythmia, anemia, pulmonary embolism, musculoskeletal, gastrointestinal process, as well as others were entertained. Medical Records Attestation: I reviewed the patient's medical records. Home Medications Current Medication List: was personally reviewed by me Laboratory Data Attestation: I reviewed the patient's lab results. Result diagrams: 07/13/18 06:14 07/12/18 05:51 Lab Results 07/10/18 07/10/18 07/10/18 Range/Units 10:20 10:20 10:20 WBC 6.90 (4.8-10.8) K/uL RBC 3.89 L (4.2-5.4) M/uL Hgb 12.3 (12.0-16.0) g/dL Hct 37.5 (37-47) % MCV 96.4 (80-100) fL MCH 31.6 (25-34) pg MCHC 32.8 (32-36) g/dL RDW Std Deviation 47.9 H (36.4-46.3) fL RDW Coeff of Marlene 13.7 (11.5-14.5) % Plt Count 301 (130-400) K/uL MPV 10.1 (7.4-10.4) fL Immature Gran % (Auto) 0.0 % Neut % (Auto) 60.2 % Lymph % (Auto) 25.1 % [place] % (Auto) 13.6 % Eos % (Auto) 1.0 % Baso % (Auto) 0.1 % Immature Gran # (Auto) 0.00 (0.00-0.02) K/uL Neut # (Auto) 4.15 (1.4-6.5) K/uL Lymph # (Auto) 1.73 (1.2-3.4) K/uL [place] # (Auto) 0.94 H (0.11-0.59) K/uL Eos # (Auto) 0.07 (0-0.5) K/uL Baso # (Auto) 0.01 (0-0.2) K/uL PT (9.0-12.0) Seconds INR (0.9-1.1) Sodium 136 (136-145) mmol/L Potassium 4.0 (3.5-5.1) mmol/L Chloride 103 (98-107) mmol/L Carbon Dioxide 29 (21-32) mmol/L Anion Gap 4.0 (3-11) BUN 24 H (7-18) mg/dl Creatinine 0.95 (0.6-1.2) mg/dl Est Cr Clr Drug Dosing 29.8 ml/min Est GFR ( Amer) 68.4 Est GFR (Non-Af Amer) 59.0 BUN/Creatinine Ratio 25.1 H (10-20) Glucose 155 H (70-99) mg/dl Calcium 8.2 L (8.5-10.1) mg/dl Total Bilirubin 0.5 (0.2-1) mg/dl AST 34 (15-37) U/L ALT 21 (12-78) U/L Alkaline Phosphatase 64 (45-117) U/L Troponin I 0.024 (0-0.045) ng/ml Total Protein 6.9 (6.4-8.2) gm/dl Albumin 2.8 L (3.4-5.0) gm/dl Globulin 4.1 H (2.5-4.0) gm/dl Albumin/Globulin Ratio 0.7 L (0.9-2) Lipase 127 (73-393) U/L Procalcitonin < 0.05 (0-0.5) ng/ml Nasal Screen MRSA (PCR) (Negative) Stl C. diff Tox B Gene (Neg) 07/10/18 07/10/18 07/11/18 Range/Units 20:55 20:55 01:53 WBC (4.8-10.8) K/uL RBC (4.2-5.4) M/uL Hgb (12.0-16.0) g/dL Hct (37-47) % MCV (80-100) fL MCH (25-34) pg MCHC (32-36) g/dL RDW Std Deviation (36.4-46.3) fL RDW Coeff of Marlene (11.5-14.5) % Plt Count (130-400) K/uL MPV (7.4-10.4) fL Immature Gran % (Auto) % Neut % (Auto) % Lymph % (Auto) % [place] % (Auto) % Eos % (Auto) % Baso % (Auto) % Immature Gran # (Auto) (0.00-0.02) K/uL Neut # (Auto) (1.4-6.5) K/uL Lymph # (Auto) (1.2-3.4) K/uL [place] # (Auto) (0.11-0.59) K/uL Eos # (Auto) (0-0.5) K/uL Baso # (Auto) (0-0.2) K/uL PT 10.2 (9.0-12.0) Seconds INR 1.0 (0.9-1.1) Sodium (136-145) mmol/L Potassium (3.5-5.1) mmol/L Chloride (98-107) mmol/L Carbon Dioxide (21-32) mmol/L Anion Gap (3-11) BUN (7-18) mg/dl Creatinine (0.6-1.2) mg/dl Est Cr Clr Drug Dosing ml/min Est GFR ( Amer) Est GFR (Non-Af Amer) BUN/Creatinine Ratio (10-20) Glucose (70-99) mg/dl Calcium (8.5-10.1) mg/dl Total Bilirubin (0.2-1) mg/dl AST (15-37) U/L ALT (12-78) U/L Alkaline Phosphatase (45-117) U/L Troponin I 0.018 (0-0.045) ng/ml Total Protein (6.4-8.2) gm/dl Albumin (3.4-5.0) gm/dl Globulin (2.5-4.0) gm/dl Albumin/Globulin Ratio (0.9-2) Lipase (73-393) U/L Procalcitonin (0-0.5) ng/ml Nasal Screen MRSA (PCR) Negative (Negative) Stl C. diff Tox B Gene (Neg) 07/11/18 07/11/18 07/12/18 Range/Units 06:14 06:14 05:51 WBC (4.8-10.8) K/uL RBC (4.2-5.4) M/uL Hgb 11.5 L 10.1 L (12.0-16.0) g/dL Hct 35.4 L 30.9 L (37-47) % MCV (80-100) fL MCH (25-34) pg MCHC (32-36) g/dL RDW Std Deviation (36.4-46.3) fL RDW Coeff of Marlene (11.5-14.5) % Plt Count (130-400) K/uL MPV (7.4-10.4) fL Immature Gran % (Auto) % Neut % (Auto) % Lymph % (Auto) % [place] % (Auto) % Eos % (Auto) % Baso % (Auto) % Immature Gran # (Auto) (0.00-0.02) K/uL Neut # (Auto) (1.4-6.5) K/uL Lymph # (Auto) (1.2-3.4) K/uL [place] # (Auto) (0.11-0.59) K/uL Eos # (Auto) (0-0.5) K/uL Baso # (Auto) (0-0.2) K/uL PT (9.0-12.0) Seconds INR (0.9-1.1) Sodium 138 (136-145) mmol/L Potassium 3.8 (3.5-5.1) mmol/L Chloride 105 (98-107) mmol/L Carbon Dioxide 28 (21-32) mmol/L Anion Gap 6.0 (3-11) BUN 16 (7-18) mg/dl Creatinine 0.82 (0.6-1.2) mg/dl Est Cr Clr Drug Dosing 34.2 ml/min Est GFR ( Amer) 81.7 Est GFR (Non-Af Amer) 70.5 BUN/Creatinine Ratio 19.8 (10-20) Glucose 126 H (70-99) mg/dl Calcium 7.7 L (8.5-10.1) mg/dl Total Bilirubin (0.2-1) mg/dl AST (15-37) U/L ALT (12-78) U/L Alkaline Phosphatase (45-117) U/L Troponin I (0-0.045) ng/ml Total Protein (6.4-8.2) gm/dl Albumin (3.4-5.0) gm/dl Globulin (2.5-4.0) gm/dl Albumin/Globulin Ratio (0.9-2) Lipase (73-393) U/L Procalcitonin (0-0.5) ng/ml Nasal Screen MRSA (PCR) (Negative) Stl C. diff Tox B Gene (Neg) 07/12/18 07/12/18 07/13/18 Range/Units 05:51 13:45 06:14 WBC 5.91 (4.8-10.8) K/uL RBC 3.39 L (4.2-5.4) M/uL Hgb 10.5 L (12.0-16.0) g/dL Hct 32.5 L (37-47) % MCV 95.9 (80-100) fL MCH 31.0 (25-34) pg MCHC 32.3 (32-36) g/dL RDW Std Deviation 48.7 H (36.4-46.3) fL RDW Coeff of Marlene 14.2 (11.5-14.5) % Plt Count 199 (130-400) K/uL MPV 9.6 (7.4-10.4) fL Immature Gran % (Auto) % Neut % (Auto) % Lymph % (Auto) % [place] % (Auto) % Eos % (Auto) % Baso % (Auto) % Immature Gran # (Auto) (0.00-0.02) K/uL Neut # (Auto) (1.4-6.5) K/uL Lymph # (Auto) (1.2-3.4) K/uL [place] # (Auto) (0.11-0.59) K/uL Eos # (Auto) (0-0.5) K/uL Baso # (Auto) (0-0.2) K/uL PT (9.0-12.0) Seconds INR (0.9-1.1) Sodium 141 (136-145) mmol/L Potassium 4.2 (3.5-5.1) mmol/L Chloride 107 (98-107) mmol/L Carbon Dioxide 28 (21-32) mmol/L Anion Gap 6.0 (3-11) BUN 14 (7-18) mg/dl Creatinine 0.93 (0.6-1.2) mg/dl Est Cr Clr Drug Dosing 32.3 ml/min Est GFR ( Amer) 70.2 Est GFR (Non-Af Amer) 60.5 BUN/Creatinine Ratio 15.5 (10-20) Glucose 145 H (70-99) mg/dl Calcium 8.0 L (8.5-10.1) mg/dl Total Bilirubin (0.2-1) mg/dl AST (15-37) U/L ALT (12-78) U/L Alkaline Phosphatase (45-117) U/L Troponin I (0-0.045) ng/ml Total Protein (6.4-8.2) gm/dl Albumin (3.4-5.0) gm/dl Globulin (2.5-4.0) gm/dl Albumin/Globulin Ratio (0.9-2) Lipase (73-393) U/L Procalcitonin (0-0.5) ng/ml Nasal Screen MRSA (PCR) (Negative) Stl C. diff Tox B Gene Negative Cdiff Gene (Neg) Imaging Data Radiologist's Impression: Radiology results as stated below per my review and the radiologist's interpretation: SINGLE VIEW CHEST CLINICAL HISTORY: Atypical chest pain. FINDINGS: An AP, portable, upright chest radiograph is compared to study dated 06/24/2018 and correlated with chest CT dated 05/19/2018. The examination is degraded by portable technique and patient rotation. A left subclavian central venous infusion port is unchanged in position. The patient is status post midline sternotomy. The cardiomediastinal silhouette is unremarkable, noting atherosclerotic calcification of the thoracic aorta. The pulmonary vasculature is noncongested. Emphysema, chronic residual thickening, and diffuse nodularity is similar to previous. Masslike consolidation in the right upper lobe has significantly decreased as compared to previous. No large pleural effusion or pneumothorax is seen. The skeletal structures are osteopenic. The bony thorax is grossly intact. Cholecystectomy clips are seen in the right upper quadrant. IMPRESSION: 1. Masslike consolidation in the right upper lung has significantly decreased in size as compared to 06/24/2018. 2. Emphysema, chronic interstitial thickening, and diffuse nodularity is similar to previous. 3. No new foci of airspace consolidation are identified. No large pleural effusion is seen. Electronically signed by: Han Bolanos M.D. 07/10/2018 11:19 AM ECG Data Attestation: I personally reviewed and interpreted this ECG as follows: Indication: chest pain Rate (beats per minute): 95 Rhythm: normal sinus Findings: + other (previous inferior infarct, QT-c 517), + nonspecific-ST abn and + RBBB; no PAC, no PVC and no ectopy Blood Pressure Blood Pressure Findings: Normal blood pressure Blood Pressure Disposition: did not require urgent referral MDM Narrative This pt was evaluated and appeared to be in no distress. IV access was obtained and lab work was drawn. Pt was placed on the cardiac rehabilitation specialist. Pt resting comfortable on NC O2. CXR reveals no new focal consolidation. EKG reveals a NSR with RBBB, nonspecific changes. Pt was given ASA 324 mg po, hydrated with NSS. GIven her extensive cardiac and pulmonary history, pt will be evaluated by the hospitalist for further management. She is aware of the plan and agrees. Impression & Plan Substernal chest pain, Non-small cell lung cancer (NSCLC) Discharge Plan Visit Data *Final* Discharge Date/Time: 07/10/18 16:06 Chief Complaint: Chest Pain Stated Complaint: CHEST PAIN ED Provider: Ginger Malone Discharge Problem: Substernal chest pain, Non-small cell lung cancer (NSCLC) Patient Disposition: Admitted As Inpatient Discharge Instructions Interventions: ED Discharge Assessment Last Done: 07/10/18 16:06 Discharge Problem: Non-small cell lung cancer (NSCLC) Qualifiers: Laterality: right Qualified Code(s): C34.91 - Malignant neoplasm of unspecified part of right bronchus or lung The scribe's documentation has been prepared under my direction and personally reviewed by me in its entirety. I confirm that the note above accurately reflects all work, treatment, procedures, and medical decision making performed by me.
[2018-07-10] MEDS: NSS + 20MEQ KCL 20 MEQ/1,000 ML BAG IV SCH (18:54)
[2018-07-10] MEDS: POTASSIUM CHLORIDE 10 MEQ TABCR PO SCH ×2 (18:54→20:12)
[2018-07-10] MEDS ORDERED: OPTIRAY 320 125ml IV PRN (19:44)
[2018-07-10] MEDS: CALCIUM 600MG + VIT D 400 IU TAB PO SCH (20:08)
[2018-07-10] MEDS: METOPROLOL TARTRATE 25 MG TAB PO SCH (20:09)
[2018-07-10] MEDS: SACCHAROMYCES BOULARDII 250 MG CAP PO SCH (20:09)
[2018-07-10] MEDS: RALOXIFENE HCL 60 MG TAB PO SCH (20:09)
[2018-07-10] MEDS: MAGNESIUM OXIDE 400 MG TAB PO SCH (20:10)
[2018-07-10] MEDS: RANOLAZINE 500 MG ER TAB PO SCH (20:11)
[2018-07-10] MEDS: MULTIVITAMIN TAB PO SCH (20:12)
[2018-07-10] MEDS: SIMVASTATIN 40 MG TAB PO SCH (20:13)
--- NOTE | 2018-07-10 20:51 | CT Scan Report ---
CT ANGIOGRAM OF THE CHEST CLINICAL HISTORY: Atypical chest pain. Lung cancer. COMPARISON STUDY: Chest x-ray dated 07/10/2018. Chest CT scans dated 05/19/2018 and 06/11/2015. TECHNIQUE: Following the IV administration of 94 cc of Optiray 320, CT angiogram of the chest was per formed from the upper abdomen to the thoracic inlet utilizing the pulmonary embolus protocol. Images are reviewed in the axial, sagittal, and coronal planes. 3-D MIPS images are created and assessed. IV contrast was administered without complication. A dose lowering technique was utilized adhering to the principles of ALARA. The Examination is modestly degraded by motion artifact. CT DOSE: 182.06 mGy.cm FINDINGS: Thyroid: Imaged portions of the thyroid gland are normal in size and attenuation. Thoracic aorta: There is atherosclerotic calcification of the thoracic aorta. Mild ectasia of the asc ending thoracic aorta is unchanged. This measures up to 3.4 cm in diameter. The remainder of the thor acic aorta is normal in caliber and the arch demonstrates 4-vessel variant anatomy. No dissection is seen. The arch vessels are widely patent. Pulmonary vasculature: The main pulmonary arteries appear dilated suggesting pulmonary artery hyperte nsion. There are no filling defects identified in main, lobar, or segmental pulmonary branches to sug gest pulmonary embolus. Heart: The patient is status post midline sternotomy. The heart is enlarged and without pericardial e ffusion. The coronary arteries are densely calcified. Lungs and pleural spaces: Mild emphysematous change is observed. An irregular right suprahilar lesion appears to have modestly increased in size from 05/19/2018 this measures approximately 2.8 x 2.5 cm a s seen on image #169. There is is consolidative change identified within the adjacent right upper lob e parenchyma which is new from previous. Numerous foci of patchy nodule consolidation are again seen throughout both lungs. This also appears somewhat progressive from previous. Fibrosis/scarring is see n in the right middle lobe and lingula. Extensive mucus plugging is seen bilaterally. There is no pl eural effusion. The trachea and central airways are clear. Mediastinum: There is no mediastinal lymphadenopathy. Nataly: No hilar adenopathy is clearly seen. Axillae: There is no axillary lymphadenopathy. Upper abdomen: Partially visualized upper abdominal viscera is within normal limits. Skeletal structures: The skeletal structures are osteopenic. There are healed left-sided rib fracture s. Arthritic change is seen in the shoulders. Degenerative change and mild hyperkyphosis are noted in the thoracic spine. No lytic or blastic bony lesions are seen. IMPRESSION: 1. There is no evidence of pulmonary embolus in the main, lobar, or segmental pulmonary arteries. 2. Cardiomegaly and emphysema. 3. An irregular right suprahilar mass lesion appears modestly increased in size from 05/19/2018. 4. There is irregular patchy consolidation identified in the right upper lobe, new from previous. Thi s could present an infectious/inflammatory pneumonitis and/or lymphangitic spread of tumor. Clinical correlation will be required. 5. Airspace consolidation at both lung bases is also new from previous. Extensive patchy nodular cons olidative change throughout both lungs is identified also appears somewhat progressive from previous. Difference considerations remain metastatic disease and/or a chronic infectious/inflammatory pneumon itis. 6. No mediastinal lymphadenopathy is identified. 7. Extensive mucus plugging is seen bilaterally. 8. Additional findings as above. Electronically signed by: Han Bolanos M.D. 07/10/2018 8:49 PM
[2018-07-10] MEDS ORDERED: ALBUTEROL HFA 8 GM INHALER INH SCH (21:00)
[2018-07-10] MEDS ORDERED: RESVERATROL PO SCH (21:00)
[2018-07-10] MEDS ORDERED: CALCIUM CARBONATE VITAMIN D3 PO SCH (21:00)
[2018-07-10] MEDS ORDERED: NON-FORMULARY MEDICATION (Lactobacillus Combination No.4 [Probiotic] 3,000 mmu cells) PO SCH (21:00)
[2018-07-10] MEDS: CEVIMELINE 30 MG PO SCH (21:10)
[2018-07-10] MEDS: ERLOTINIB HCL PO SCH (21:11)
[2018-07-10] MEDS: ONDANSETRON INJ 2 MG/ML 2 ML VIAL IV SCH (21:13)
[2018-07-10] MEDS ORDERED: PIPERACILL/TAZOBAC CONSULT ACTIVE PRN (21:20)
[2018-07-10] MEDS ORDERED: VANCOMYCIN CONSULT ACTIVE PRN (21:20)
[2018-07-10 21:32] LABS: Prothrombin Time 10.2 Seconds (9.0-12.0)
[2018-07-10] MEDS: ALBUT/IPRATROP 3MG/0.5MG NEB 3 ML VIAL NEB SCH (21:32)
[2018-07-10] MEDS ORDERED: VANCOMYCIN HCL 1,000 MG in SODIUM CHLORIDE 0.9% 250 ML IV ONE (21:45)
[2018-07-10] MEDS ORDERED: PIPERACILLIN/TAZOBACTAM 3.375 GM in DEXTROSE 5% 100 ML IV ONE (22:00)
[2018-07-10] MEDS: HEPARIN SOD 5,000 UNIT/0.5 ML VIAL SQ SCH (22:00)
[2018-07-11] MEDS: ONDANSETRON INJ 2 MG/ML 2 ML VIAL IV SCH ×4 (01:45→16:36)
[2018-07-11] MEDS ORDERED: PROCHLORPERAZINE 5 MG in SYRINGE 4 ML IV PRN (03:18)
[2018-07-11] MEDS: HYDROCODONE/ACETAMOPHEN 5/325MG TAB PO PRN ×2 (03:46→20:00)
[2018-07-11] MEDS: PIPERACILLIN/TAZOBACTAM 3.375 GM in DEXTROSE 5% 100 ML IV SCH ×3 (03:54→20:14)
[2018-07-11] MEDS: ALBUT/IPRATROP 3MG/0.5MG NEB 3 ML VIAL NEB SCH ×5 (04:53→19:51)
[2018-07-11 06:41] LABS: Hematocrit (blood only) 35.4 % (37-47); Hemoglobin 11.5 g/dL (12.0-16.0)
[2018-07-11 07:17] LABS: BUN Creatinine Ratio 19.8 (10-20); Calcium 7.7 mg/dl (8.5-10.1); Creatinine Clr Calc Pharmacy 34.2 ml/min; Est GFR (African American) 81.7; Est GFR (Non-African American) 70.5; Potassium 3.8 mmol/L (3.5-5.1)
[2018-07-11] MEDS: CEVIMELINE 30 MG PO SCH ×3 (07:44→21:36)
[2018-07-11] MEDS: predniSONE 1 MG TAB PO SCH (07:45)
[2018-07-11] MEDS: CALCIUM 600MG + VIT D 400 IU TAB PO SCH ×2 (07:47→20:04)
[2018-07-11] MEDS: METOPROLOL TARTRATE 25 MG TAB PO SCH ×2 (07:47→20:04)
[2018-07-11] MEDS: POTASSIUM CHLORIDE 10 MEQ TABCR PO SCH ×3 (07:47→20:05)
[2018-07-11] MEDS: ISOSORBIDE MONO EXTENDED REL 60 MG TABCR PO SCH (07:47)
[2018-07-11] MEDS: HEPARIN SOD 5,000 UNIT/0.5 ML VIAL SQ SCH ×2 (07:50→20:07)
[2018-07-11] MEDS ORDERED: NON-FORMULARY MEDICATION (Magnesium 500 MG) PO SCH (09:00)
[2018-07-11] MEDS: RANOLAZINE 500 MG ER TAB PO SCH ×2 (09:22→20:03)
[2018-07-11] MEDS: ASPIRIN 81 MG ECTAB PO SCH (11:13)
[2018-07-11] MEDS: methylPREDNISolone 40 MG in SYRINGE 0 ML IV SCH (13:13)
[2018-07-11] MEDS: NSS + 20MEQ KCL 20 MEQ/1,000 ML BAG IV SCH (14:59)
--- NOTE | 2018-07-11 16:12 | Pharmacy Report ---
Pharmacy Abx Initial Consult - Date of Service July 11, 2018 - Pharmacy Dosing Scope Date of Consult: 07/11/18 Consultation requested by: Dr. Lynch Pharmacy is consulted to initiate Vancomycin and Zosyn IV dosing therapy, order appropriate labs and adjust drug dose/frequency. - Subjective The patient is a 73 year old F admitted on 07/10/18 16:02. - Objective Height: 4 ft 11 in Weight: 36 kg Vital Signs (Past 12hrs): Vital Signs Temp Pulse Resp BP BP Pulse Ox 07/11/18 15:30 36.9 C 96 H 15 133/82 97 07/11/18 14:48 83 18 92 07/11/18 11:06 83 18 94 07/11/18 10:35 37.0 C 84 16 127/79 90 07/11/18 09:30 91 07/11/18 07:07 36.7 C 85 16 132/72 96 07/11/18 04:55 90 20 96 Lab Results (24hrs): Laboratory Tests (24 Hours) 07/11/18 07/10/18 06:14 10:20 Creatinine 0.82 Est Cr Clr Drug Dosing 34.2 Procalcitonin < 0.05 Micro Results: 07/11/18 09:48 Blood Culture - Pending Blood 07/11/18 09:35 Blood Culture - Pending Blood - Assessment & Plan Assessment * 73 year old F with NSCLC currently admitted for Pneumonia. Patient was hospitalized for around 24 hrs earlier this month as well. * MRSA swab result was negative. * Vancomycin + Zosyn ordered. Blood cultures pending. * Patient weighs 36 kg, less than her ideal body wt of 44 kg. Plan Vancomycin IV * Estimated PK Parameters: Vd 0.7 L/kg, Nain 0.033 hr-1, t1/2 21 hr * Loading dose: 1000 mg (27 mg/kg) given yesterday night. * Maintenance dose: 500 mg IV (14 mg/kg) every 24 hours * Goal trough level for Pneumonia: 15 to 20 mcg/mL * Trough Vanco level ordered for 07/13/18 before dose at 1800. Pharmacy will continue to follow and will adjust dose/frequency as necessary. Thank you.
[2018-07-11] MEDS ORDERED: ONDANSETRON INJ 2 MG/ML 2 ML VIAL IV PRN (16:53)
--- NOTE | 2018-07-11 16:59 | Hospitalist Progress Note ---
Date of Service July 11, 2018 Assessment & Plan (1) Substernal chest pain: Mrs. Vega is a 73 year old female with a history of CAD s/p CABG x 4 vessels 2010, Ischemic Cardiomyopathy (LVEF 45% to 50), Hypertension, Dyslipidemia, Metastatic NSCLC, Gastric Lymphoma(in remission), Sjogren's Sy ndrome, COPD, Chronic Nausea since starting Tarceva, Autoimmune Hepatitis, and Chronic Stable Angina Pectoris (exertional posterior thorax pain) who presented with chest pain over the past couple of days off and on -- it is very dissimilar to her anginal pain. She denies any radiation of the discomfort and denies any associated nausea, vomiting, diaphoresis or dyspnea. Chest pain was likely due to PNA and hypoxia, bronchospasm--> now resolved with nebs, O2, and treatment of PNA -- Serial troponin negative x 2 -- Suspect new incomplete RBBB is secondary to underlying lung disease. (2) Pneumonia: Likely post-obtructive PNA multifocal vs spread/progression of lung CA Spiked a fever after admission, cough is more productive than chronic cough No evidence of sepsis, procal negative -check Blood cxs -continue coverage for HCAP and gram negative PNA with Zosyn and MRSA coverage with Vanco given recent hospitalization -continue Duonebs scheduled -continue O2 -could be post-obstructive PNA -consult Pulm appreciated continue fluids (3) Stable angina: CAD s/p CABG x 4 Vessels in December 2010. -- Still experiences exertional posterior thorax pain from time to time with over-exertion. -- This is her Stable Angina -- and its pattern has not changed. -- Continue Metoprolol Tartrate 75 mg bid. -- Continue Imdur 60 mg daily. -- Continue Ranexa 500 mg bid. -- Continue Aspirin 81 mg daily. -- Continue Simvastatin 40 mg daily. (4) CAD, multiple vessel: As above. (5) Non-small cell lung cancer (NSCLC): With progressive disease, not responding to Tarceva Discussed case with Dr. De La O who won't be able to see her till Thursday -was supposed to have a PET scan Thursday AM which we cancelled for her--> this was to determine next course of action as she is running out of her Tarceva in 3 days -continue tarceva from home for now (6) Acute respiratory failure with hypoxia: continue supplemental O2 to keep POx>90% secondary to PNA and lung CA Improved today -Pulm saw and added IV SOlu Medrol appreciate Pulm consult (7) HTN (hypertension): stable, continue isosorbide, metoprolol (8) Hyperlipemia: continue statin (9) Sjogren's disease: Continue home prednisone 3 mg daily but also now on Solu Medrol -continue Evoxac (10) Immunodeficiency: Hypogammaglobulinemia: Receives weekly infusions of Hizentra which helps- she used to have frequent infections (11) Osteoporosis: continue Evista (12) DVT prophylaxis: Heparin SQ Dispo-remain on tele Subjective Pt feeling much better today, still coughing up some mucus. No further chest pressure or pain. Is weaned off O2, feeling less SOB. Spiked a fever last night Tele with NSR, rates in the 90s. Physical Exam Vital Signs (Past 24 Hours): Last Vital Signs Temp 36.9 C 07/11/18 16:00 Pulse 96 H 07/11/18 16:00 Resp 15 07/11/18 16:00 BP 133/82 07/11/18 16:00 Pulse Ox 97 07/11/18 16:00 Constitutional: WD/WN, vitals as above Eyes: PERRL, conjunctivae normal, anicteric sclerae ENMT: external ear and nose normal, oropharynx normal Neck: trachea midline, no thyromegaly Respiratory: normal respiratory effort Auscultation: + crackles (in right middle and upper lung field); no rhonchi and no wheezes Cardiovascular: RRR, no murmur, no edema Gastrointestinal (Abdomen): normal bowel sounds, soft, nontender, no hepatosplenomegaly Musculoskeletal: Extremities: extremities normal to inspection; no cyanosis and no clubbing Skin: no rashes, warm and dry Neurologic: moves all extremities and awake; no focal motor deficits Psychiatric: A+Ox3, euthymic affect Results & Data Laboratory Results 07/12/18 07/12/18 07/11/18 Range/Units 05:51 05:51 12:20 Hgb 10.1 L (12.0-16.0) g/dL Hct 30.9 L (37-47) % Sodium 141 (136-145) mmol/L Potassium 4.2 (3.5-5.1) mmol/L Chloride 107 (98-107) mmol/L Carbon Dioxide 28 (21-32) mmol/L Anion Gap 6.0 (3-11) BUN 14 (7-18) mg/dl Creatinine 0.93 (0.6-1.2) mg/dl Est Cr Clr Drug Dosing 32.3 ml/min Est GFR ( Amer) 70.2 Est GFR (Non-Af Amer) 60.5 BUN/Creatinine Ratio 15.5 (10-20) Glucose 145 H (70-99) mg/dl Calcium 8.0 L (8.5-10.1) mg/dl L.pneumophila IgM Ab Urine Legionella Ag Pending Mycoplasma pneumon IgG Mycoplasma pneumon IgM Aspergillus flavus Ab Aspergill fumigatus Ab A. galactomannan Ag A. galactomannan Ag Idx Aspergillus niger Ab Beta-(1,3)-D-Glucan B-(1,3)-D-Glucan Intrp 07/11/18 Range/Units 11:10 Hgb (12.0-16.0) g/dL Hct (37-47) % Sodium (136-145) mmol/L Potassium (3.5-5.1) mmol/L Chloride (98-107) mmol/L Carbon Dioxide (21-32) mmol/L Anion Gap (3-11) BUN (7-18) mg/dl Creatinine (0.6-1.2) mg/dl Est Cr Clr Drug Dosing ml/min Est GFR ( Amer) Est GFR (Non-Af Amer) BUN/Creatinine Ratio (10-20) Glucose (70-99) mg/dl Calcium (8.5-10.1) mg/dl L.pneumophila IgM Ab Pending Urine Legionella Ag Mycoplasma pneumon IgG Pending Mycoplasma pneumon IgM Pending Aspergillus flavus Ab Pending Aspergill fumigatus Ab Pending A. galactomannan Ag Pending A. galactomannan Ag Idx Pending Aspergillus niger Ab Pending Beta-(1,3)-D-Glucan Pending B-(1,3)-D-Glucan Intrp Pending
[2018-07-11] MEDS ORDERED: VANCOMYCIN HCL 500 MG in 0.9 % SODIUM CHLORIDE 100 ML IV SCH (18:00)
[2018-07-11] MEDS: ONDANSETRON 4 MG TAB PO SCH (18:25)
[2018-07-11] MEDS: MAGNESIUM OXIDE 400 MG TAB PO SCH (20:03)
[2018-07-11] MEDS: SIMVASTATIN 40 MG TAB PO SCH (20:03)
[2018-07-11] MEDS: SACCHAROMYCES BOULARDII 250 MG CAP PO SCH (20:04)
[2018-07-11] MEDS: RALOXIFENE HCL 60 MG TAB PO SCH (20:05)
[2018-07-11] MEDS: MULTIVITAMIN TAB PO SCH (20:06)
[2018-07-11] MEDS ORDERED: KETOROLAC TROMETHAMINE 15 MG/ML VIAL IV ONE (21:17)
[2018-07-11] MEDS: BENZONATATE 100 MG CAPSULE PO PRN (21:22)
[2018-07-11] MEDS: ERLOTINIB HCL PO SCH (21:36)
--- NOTE | 2018-07-11 22:26 | Consultation Report ---
DATE OF CONSULTATION: 07/11/2018 REASON FOR CONSULTATION: History of non-small cell carcinoma/COPD in a patient with ischemic cardiomyopathy. HISTORY OF PRESENT ILLNESS: A 73-year-old white female with complex medical history who has a history of ischemic cardiac disease status post CABG x4 vessels in 2010, ischemic cardiomyopathy with an LVEF of 45% to 50%, hypertensive cardiovascular disease, dyslipidemia, and a history of metastatic non-small cell carcinoma. She also has a remote history of gastric lymphoma in remission, Sjogren's syndrome along with her COPD and autoimmune hepatitis as well as chronic stable angina pectoris. The patient was admitted from our ER after several days of chest discomfort usually described as exertional involving the posterior thorax that was relieved partially with nitroglycerin sublingual and with O2 therapy. The patient had not been on oxygen therapy at home. She has been coughing almost continually and no hemoptysis is noted. She has lost an unspecified amount of weight and has been on Tarceva for her non-small cell carcinoma which she seems to be tolerating. Dr. De La O is her oncologist and Dr. Villalpando her primary care physician. Currently, she is without chest pain and feels strongly that the oxygen therapy has been the reason for the dissipation of her chest pain. EKG on admission showed normal sinus rhythm with incomplete right bundle-branch block, prolonged QT. The incomplete right bundle branch block and lengthening of the QT is new since November of 2017. CAT scanning of the chest done as a CTA on admission was reviewed and compared to 05/19/2018 and 06/11/2015. The pulmonary artery dilatation would suggest pulmonary hypertension. There are emphysematous changes noted and an irregular right suprahilar lesion that appears to have modestly increased just since April 2018, now measuring 2.8 x 2.5 cm with consolidative changes within the adjacent right upper lobe parenchyma which is new and numerous foci of patchy nodular consolidation are seen throughout both lungs. Fibrosis and scarring involving the right middle lobe and lingula are noted and extensive mucous plugging is seen bilaterally. No mediastinal or hilar adenopathy. Most recent fiberoptic bronchoscopy with EBUS performed by Dr. Bee was carried out on 06/24/2018. The patient had previous history of mediastinoscopy in February 2016 and was found to have metastatic non-small cell carcinoma of the lungs w a mass in the right upper lobe. She was started on Tarceva for targeted therapy. She was then brought back to the OR on 06/24/2017 with changes on her CAT scan noted. There was enlargement of lymph node at level 10 and progression of the right upper lobe mass as well as a new left lower lobe area of consolidation. She tolerated the procedure without difficulty but had to be admitted on 06/29/[address] Deborah Lynch. She had some nausea from the Tarceva and was admitted with intractable nausea and vomiting and was treated with IV Reglan. 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 She was discharged on 06/30/2018. Because of worsening symptoms and chest pain, she was readmitted on 07/10/2018. Currently, she appears comfortable and is well saturated on current O2 supplementation. For details of past medical history, medications, family, and social history, I refer you to current and past record. PHYSICAL EXAMINATION: GENERAL: Cachectic elderly white female, friendly appearing, stable at rest. VITAL SIGNS: Blood pressure 127/79, pulse 84 and regular, respiratory rate 16, temperature 37, O2 sat 90% on room air, currently on 2 liters. SKIN: Without lesion. HEENT: Atraumatic, normocephalic. PERRLA. LUNGS: Scattered rhonchi. Distant P and A. CARDIAC: Regular rate and rhythm. I do not appreciate any gallop. ABDOMEN: Soft, protuberant. No evidence of hepatosplenomegaly. EXTREMITIES: Trace pedal edema. No clubbing. Peripheral cyanosis. NEUROLOGIC: Intact. No lateralizing signs. DIAGNOSTIC DATA: CTA as noted. White count 6900, H and H 11.5 and 35.4. Blood cultures pending. Calculated CO2 of 28. On overall assessment and review of the initial biopsy on 03/13/2017, the patient was negative for ALK gene rearrangement and it was not detected. EGFR mutation was not detected. ROS1 gene rearrangement was negative. PD-L1 22C3 FDA (Keytruda ?) was expressed. OVERALL ASSESSMENT: A 73-year-old with chronic obstructive pulmonary disease, with non-small cell carcinoma, on targeted therapy in the form of Tarceva, now with slightly increased right perihilar mass with what I think appears to be postobstructive pneumonia. Certainly cannot rule out lymphohematogenous dissemination of disease either to the right lung or left lower lobe. The chest pain seemed to dissipate with oxygen therapy and nitroglycerin despite it not representing her usual anginal pattern. She is currently receiving IV Zosyn and vancomycin, which I agree with and nebulizer treatments. We will order Aspergillus galactomannan antigen and Fungitell. It is certainly possible patient can have an invasive type fungal infection. The patient may also require intravenous steroid therapy pending clinical response. We will follow along with you. Thank you very much for this consultation. DEB
[2018-07-12] MEDS: methylPREDNISolone 40 MG in SYRINGE 0 ML IV SCH ×2 (00:57→16:03)
[2018-07-12] MEDS ORDERED: HEPARIN 100 UNIT/ML 5ML FLUSH FLUSH PRN (01:52)
[2018-07-12] MEDS: PIPERACILLIN/TAZOBACTAM 3.375 GM in DEXTROSE 5% 100 ML IV SCH ×2 (04:41→16:03)
[2018-07-12 06:03] LABS: Hematocrit (blood only) 30.9 % (37-47); Hemoglobin 10.1 g/dL (12.0-16.0)
[2018-07-12 06:35] LABS: BUN Creatinine Ratio 15.5 (10-20); Creatinine Clr Calc Pharmacy 32.3 ml/min; Est GFR (African American) 70.2; Est GFR (Non-African American) 60.5; Potassium 4.2 mmol/L (3.5-5.1)
[2018-07-12] MEDS: ALBUT/IPRATROP 3MG/0.5MG NEB 3 ML VIAL NEB SCH ×4 (07:18→19:53)
[2018-07-12] MEDS: ONDANSETRON 4 MG TAB PO SCH ×3 (07:25→16:54)
[2018-07-12] MEDS: CALCIUM 600MG + VIT D 400 IU TAB PO SCH ×2 (08:02→16:55)
[2018-07-12] MEDS: METOPROLOL TARTRATE 25 MG TAB PO SCH ×2 (08:03→21:10)
[2018-07-12] MEDS: RANOLAZINE 500 MG ER TAB PO SCH ×2 (08:03→21:10)
[2018-07-12] MEDS: ISOSORBIDE MONO EXTENDED REL 60 MG TABCR PO SCH (08:03)
[2018-07-12] MEDS: POTASSIUM CHLORIDE 10 MEQ TABCR PO SCH ×3 (08:03→21:09)
[2018-07-12] MEDS: CEVIMELINE 30 MG PO SCH ×3 (08:03→21:12)
[2018-07-12] MEDS: predniSONE 1 MG TAB PO SCH (08:04)
[2018-07-12] MEDS: HEPARIN SOD 5,000 UNIT/0.5 ML VIAL SQ SCH ×2 (08:04→21:07)
--- NOTE | 2018-07-12 08:54 | Hospitalist Progress Note ---
Date of Service July 12, 2018 Assessment & Plan (1) Substernal chest pain: Mrs. Vega is a 73 year old female with a history of CAD s/p CABG x 4 vessels 2010, Ischemic Cardiomyopathy (LVEF 45% to 50), Hypertension, Dyslipidemia, Metastatic NSCLC, Gastric Lymphoma(in remission), Sjogren's Sy ndrome, COPD, Chronic Nausea since starting Tarceva, Autoimmune Hepatitis, and Chronic Stable Angina Pectoris (exertional posterior thorax pain) who presented with chest pain over the past couple of days off and on -- it is very dissimilar to her anginal pain. She denies any radiation of the discomfort and denies any associated nausea, vomiting, diaphoresis or dyspnea. Chest pain was likely due to postobstructive PNA and hypoxia, bronchospasm--> now resolved with nebs, O2, and treatment of PNA -- Serial troponin negative -- Suspect new incomplete RBBB is secondary to underlying lung disease. (2) Pneumonia: Likely post-obtructive PNA multifocal vs spread/progression of lung CA Transition antibiotics to doxycycline p.o. -continue Duonebs scheduled -continue O2 Consider post-obstructive PNA Patient also some underlying COPD she was given steroids in addition to her inhaled medications by pulmonary medicine and feels markedly better will wright sition his steroids to oral medications on 06/1818 - (3) Stable angina: CAD s/p CABG x 4 Vessels in December 2010. -- Still experiences exertional posterior thorax pain from time to time with over-exertion. -- This is her Stable Angina --no further chest pain while in the hospital -- Continue Metoprolol Tartrate 75 mg bid. -- Continue Imdur 60 mg daily. -- Continue Ranexa 500 mg bid. -- Continue Aspirin 81 mg daily. -- Continue Simvastatin 40 mg daily. (4) CAD, multiple vessel: As above. (5) Non-small cell lung cancer (NSCLC): With progressive disease, not responding to Tarceva Discussed case with Dr. De La O who will see her this week -was supposed to have a PET scan Thursday which will be rescheduled, continue tarceva from home (6) Acute respiratory failure with hypoxia: continue supplemental O2 to keep POx>90% secondary to PNA and lung CA on top of acute on chronic respiratory failure from COPD Improved today Tapering steroids (7) HTN (hypertension): stable, continue isosorbide, metoprolol (8) Hyperlipemia: continue statin (9) Sjogren's disease: Will escalate dose prednisone 40 with taper for her lung disease we will also cover her Sjogren's -continue Evoxac (10) Immunodeficiency: Hypogammaglobulinemia: Receives weekly infusions of Hizentra which helps- she used to have frequent infections (11) Osteoporosis: continue Evista (12) DVT prophylaxis: Heparin SQ Subjective She feels 98% back to her normal state after her day addition of steroids to her regime. She may well had some steroid deficiency as she does take chronic daily steroids. She has had no additional cough but did have some postprandial dyspepsia. She is quite ambulatory and feels much much better having O2 sat stable on room air Review of Systems ROS: well nourished well developed. No double vision blurry vision No problems with speech or swallowing No palpitations, chest pain or pressure Patient has persistent dyspnea she states is about her baseline today No abdominal pain nausea vomiting diarrhea of some postprandial dyspepsia No burning urine urine frequency or changes in color No focal joint pain or muscle pain No skin rashes or oral lesions No unusual bruising or bleeding No focused back pain or numbness or loss of strength No changes in memory or confusion Physical Exam Vital Signs (Past 24 Hours): Last Vital Signs Temp 36.7 C 07/12/18 07:10 Pulse 80 07/12/18 07:18 Resp 14 07/12/18 07:18 BP 139/82 07/12/18 07:10 Pulse Ox 97 07/12/18 07:18 The patient appeared well nourished and normally developed. Vital signs as documented. Head exam is unremarkable. normocephalic, atraumatic Neck is without jugular venous distension, thyromegaly, or lymphademopathy Lungs are clear but diminished excursion and air movement Cardiac exam reveals Rhythm is regular. First and second heart sounds normal. Abdominal exam reveals normal bowel sounds, no masses, no organomegaly Extremities are nonedematous and both pedal pulses are present Neurologic exam is A&Ox3, no focal deficits, strength is equal bilateral Psychologically seems neither anxious or depressed Skin is warm Dry without bruises or lesions
[2018-07-12] MEDS: ASPIRIN 81 MG ECTAB PO SCH (11:12)
--- NOTE | 2018-07-12 11:44 | Pharmacy Report ---
Pharmacy Abx Dose Short Note - Date of Service July 12, 2018 - Assessment & Plan Assessment * 73 year old F w history of NSCLC and CAD s/p CABG x4 in 2010 admitted with substernal chest pain * Currently receiving Zosyn and vancomycin (day 3) for PNA - CT revealed RUL consolidation, new from previous, which could be attributed to PNA vs. tumor spread * Negative MRSA nasal swab. However, NSCLC increases risk of *false* negative result and therefore continuation of vancomycin is appropriate for now Vancomycin * Loading dose of 27 mg/kg (1000mg) administered on 07/10 * Initial maintenance dose at 15 mg/kg close to estimated t1/2, which equates to 500 mg IV q24h, most recently admin 07/11 @ 1800. However, I am concerned that this will be subtherapeutic (very low body weight patient making accurate estimation of vancomycin requirements difficult) therefore ordered random level x1 STA. This will be drawn ~18 hours after the 1st maintenance dose Plan * Random level x1 STA Update I spoke with Theodore (RN) who noted Dr. Avina was speaking with the patient when lab arrived to draw the above random vancomycin level. Per Theodore, Dr. Avina's intent is to discontinue vancomycin and therefore the level was not obtained. No further intervention from pharmacy required at this time. Pharmacy will continue to follow and will adjust dose/frequency as necessary. Thank you.
[2018-07-12] MEDS: BENZONATATE 100 MG CAPSULE PO PRN (14:47)
[2018-07-12] MEDS: NSS + 20MEQ KCL 20 MEQ/1,000 ML BAG IV SCH (16:15)
[2018-07-12] MEDS: MAGNESIUM OXIDE 400 MG TAB PO SCH (16:54)
[2018-07-12] MEDS ORDERED: ALUMINUM/MAGNESIUM SUSP 18 ML, LIDOCAINE HCL VISCOUS 2% 6 ML, BARCODE IDENTIFIER 1 EA PO ONE (17:10)
[2018-07-12] MEDS: MoRPHine SULFATE 2 MG/ML CARP IV PRN ×2 (18:40→23:00)
[2018-07-12] MEDS: SACCHAROMYCES BOULARDII 250 MG CAP PO SCH (21:08)
[2018-07-12] MEDS: DOXYCYCLINE HYCLATE 100 MG CAP PO SCH (21:08)
[2018-07-12] MEDS: MULTIVITAMIN TAB PO SCH (21:09)
[2018-07-12] MEDS: RALOXIFENE HCL 60 MG TAB PO SCH (21:09)
[2018-07-12] MEDS: ERLOTINIB HCL PO SCH (21:11)
[2018-07-12] MEDS: SIMVASTATIN 40 MG TAB PO SCH (23:00)
[2018-07-13] MEDS: CALCIUM 600MG + VIT D 400 IU TAB PO SCH ×2 (06:10→18:06)
[2018-07-13 06:36] LABS: Hematocrit (blood only) 32.5 % (37-47); Hemoglobin 10.5 g/dL (12.0-16.0); Mean Corpuscular Hgb Conc 32.3 g/dL (32-36); Mean Corpuscular Volume 95.9 fL (80-100); Mean Platelet Volume 9.6 fL (7.4-10.4); Platelet Count 199 K/uL (130-400); RDW Coefficient of Variation 14.2 % (11.5-14.5); RDW Standard Deviation 48.7 fL (36.4-46.3); Red Blood Count 3.39 M/uL (4.2-5.4); White Blood Count 5.91 K/uL (4.8-10.8)
[2018-07-13] MEDS: ALBUT/IPRATROP 3MG/0.5MG NEB 3 ML VIAL NEB SCH ×4 (07:13→19:59)
[2018-07-13] MEDS: DOXYCYCLINE HYCLATE 100 MG CAP PO SCH (07:29)
[2018-07-13] MEDS: RANOLAZINE 500 MG ER TAB PO SCH ×2 (07:29→22:53)
[2018-07-13] MEDS: predniSONE 20 MG TAB PO SCH (07:30)
[2018-07-13] MEDS: HEPARIN SOD 5,000 UNIT/0.5 ML VIAL SQ SCH ×2 (07:30→21:17)
[2018-07-13] MEDS: POTASSIUM CHLORIDE 10 MEQ TABCR PO SCH ×3 (07:30→21:07)
[2018-07-13] MEDS: CEVIMELINE 30 MG PO SCH ×3 (07:30→21:06)
[2018-07-13] MEDS: ONDANSETRON 4 MG TAB PO SCH ×3 (07:31→18:06)
[2018-07-13] MEDS: METOPROLOL TARTRATE 25 MG TAB PO SCH ×2 (08:05→21:12)
[2018-07-13] MEDS: ISOSORBIDE MONO EXTENDED REL 60 MG TABCR PO SCH (08:06)
[2018-07-13] MEDS: SUCRALFATE 1 GM/10 ML UDC PO SCH ×4 (12:41→21:08)
[2018-07-13] MEDS: PANTOprazole 40 MG in SYRINGE 0 ML IV SCH ×2 (12:41→21:08)
[2018-07-13] MEDS: ASPIRIN 81 MG ECTAB PO SCH (12:42)
[2018-07-13] MEDS ORDERED: VANCOMYCIN TROUGH ONE (17:30)
[2018-07-13] MEDS: MAGNESIUM OXIDE 400 MG TAB PO SCH (18:06)
--- NOTE | 2018-07-13 18:29 | Hospitalist Progress Note ---
Date of Service July 13, 2018 Assessment & Plan (1) Substernal chest pain: Mrs. Vega is a 73 year old female with a history of CAD s/p CABG x 4 vessels 2010, Ischemic Cardiomyopathy (LVEF 45% to 50), Hypertension, Dyslipidemia, Metastatic NSCLC, Gastric Lymphoma(in remission), Sjogren's Sy ndrome, COPD, Chronic Nausea since starting Tarceva, Autoimmune Hepatitis, and Chronic Stable Angina Pectoris (exertional posterior thorax pain) who presented with chest pain over the past couple of days off and on -- it is very dissimilar to her anginal pain. She denies any radiation of the discomfort and denies any associated nausea, vomiting, diaphoresis or dyspnea. Chest pain was likely due to postobstructive PNA and hypoxia, plus or malignancy. This improved after instituting steroid therapy -- Serial troponin negative Do not feel chest pain was acute coronary syndrome (2) Pneumonia: Likely post-obtructive PNA multifocal vs spread/progression of lung CA Transition antibiotics Ceftin ear -continue Duonebs scheduled -continue O2 Consider post-obstructive PNA Patient also some underlying COPD she was given steroids in addition to her inhaled medications by pulmonary medicine and feels markedly better will transition his steroids to oral medications on 06/1818 - (3) Stable angina: CAD s/p CABG x 4 Vessels in December 2010. -- Still experiences exertional posterior thorax pain from time to time with over-exertion. -- This is her Stable Angina --no further chest pain while in the hospital -- Continue Metoprolol Tartrate 75 mg bid. -- Continue Imdur 60 mg daily. -- Continue Ranexa 500 mg bid. -- Continue Aspirin 81 mg daily. -- Continue Simvastatin 40 mg daily. (4) CAD, multiple vessel: As above. (5) Non-small cell lung cancer (NSCLC): With progressive disease, not responding to Tarceva Discussed case with Dr. De La O who will see her this week -was supposed to have a PET scan Thursday which will be rescheduled, continue tarceva from home (6) Acute respiratory failure with hypoxia: continue supplemental O2 to keep POx>90% secondary to PNA and lung CA on top of acute on chronic respiratory failure from COPD Patient improved with steroids will continue these as an outpatient with tapering dose and pulmonary follow-up (7) HTN (hypertension): stable, continue isosorbide, metoprolol (8) Hyperlipemia: continue statin (9) Sjogren's disease: Will begin to taper her prednisone for her lung disease we will also cover her Sjogren's -continue Evoxac (10) Immunodeficiency: Hypogammaglobulinemia: Receives weekly infusions of Hizentra which helps- she used to have frequent infections (11) Osteoporosis: continue Evista (12) DVT prophylaxis: Heparin SQ (13) Nausea and vomiting: Patient has some dyspeptic symptoms also may be combination of antibiotics and her steroids. We will give her some Carafate and institute a proton pump inhibitor change her antibiotics from doxycycline to cefdinir Subjective Patient is some vomiting this morning of her breakfast likely a feels a combination of doxycycline and prednisone and stressors of her hospital stay. Diagnosis of malignancy also. Subsequently we will change her doxycycline initiated Carafate and present and Protonix will to Ceftin ear for her antibiotics at this time Review of Systems ROS: well nourished well developed. Patient appears thin No double vision blurry vision No problems with speech or swallowing No palpitations, chest pain or pressure No Wheezing baseline dyspnea on exertion No abdominal pain she did have some nausea vomiting this a.m. and also suffers from chronic diarrhea No burning urine urine frequency or changes in color No focal joint pain or muscle pain No skin rashes or oral lesions No unusual bruising or bleeding No focused back pain or numbness or loss of strength No changes in memory or confusion Physical Exam Vital Signs (Past 24 Hours): Last Vital Signs Temp 36.6 C 07/13/18 15:44 Pulse 72 07/13/18 15:51 Resp 16 07/13/18 15:51 BP 143/85 H 07/13/18 15:44 Pulse Ox 95 07/13/18 15:51 The patient appeared thin and chronically ill Vital signs as documented. Head exam is unremarkable. normocephalic, atraumatic Neck is without jugular venous distension, thyromegaly, or lymphademopathy Lungs are poor air movement but no wheezes Cardiac exam reveals Rhythm is regular. First and second heart sounds normal. Abdominal exam reveals normal bowel sounds, soft and nontender no masses, no organomegaly Extremities are nonedematous and both pedal pulses are present Neurologic exam is A&Ox3, no focal deficits, strength is equal bilateral Psychologically seems neither anxious or depressed Skin is warm Dry without bruises or lesions (1) Non-small cell lung cancer (NSCLC) Laterality: right Qualified Code(s): C34.91 - Malignant neoplasm of unspecified part of right bronchus or lung
[2018-07-13] MEDS: LOPERAMIDE HCL 2 MG CAP PO PRN ×2 (18:41→23:19)
[2018-07-13] MEDS: ERLOTINIB HCL PO SCH (21:04)
[2018-07-13] MEDS: CEFDINIR 250 MG/5 ML 60 ML PO SCH (21:09)
[2018-07-13] MEDS: RALOXIFENE HCL 60 MG TAB PO SCH (21:11)
[2018-07-13] MEDS: SACCHAROMYCES BOULARDII 250 MG CAP PO SCH (21:11)
[2018-07-13] MEDS: SIMVASTATIN 40 MG TAB PO SCH (22:53)
[2018-07-13] MEDS: MULTIVITAMIN TAB PO SCH (22:53)
[2018-07-14] MEDS: CALCIUM 600MG + VIT D 400 IU TAB PO SCH (06:21)
[2018-07-14] MEDS: ALBUT/IPRATROP 3MG/0.5MG NEB 3 ML VIAL NEB SCH ×2 (07:07→11:16)
[2018-07-14] MEDS: PANTOprazole 40 MG in SYRINGE 0 ML IV SCH (08:28)
[2018-07-14] MEDS: POTASSIUM CHLORIDE 10 MEQ TABCR PO SCH (08:28)
[2018-07-14] MEDS: CEVIMELINE 30 MG PO SCH (08:28)
[2018-07-14] MEDS: METOPROLOL TARTRATE 25 MG TAB PO SCH (08:29)
[2018-07-14] MEDS: RANOLAZINE 500 MG ER TAB PO SCH (08:29)
[2018-07-14] MEDS: ISOSORBIDE MONO EXTENDED REL 60 MG TABCR PO SCH (08:29)
[2018-07-14] MEDS: predniSONE 20 MG TAB PO SCH (08:30)
[2018-07-14] MEDS: SUCRALFATE 1 GM/10 ML UDC PO SCH (08:30)
[2018-07-14] MEDS: ONDANSETRON 4 MG TAB PO SCH (08:30)
[2018-07-14] MEDS: HEPARIN SOD 5,000 UNIT/0.5 ML VIAL SQ SCH (08:30)
[2018-07-14] MEDS: CEFDINIR 250 MG/5 ML 60 ML PO SCH (08:31)
[2018-07-14 11:15] VITALS: TEMP 98.2; O2SAT 91
[2018-07-14 11:18] VITALS: PULSE 92
[2018-07-14 11:59] VITALS: BP 164/90
--- NOTE | 2018-07-14 16:39 | Discharge Summary ---
Date of Service July 14, 2018 Admission HPI Per Admitting Provider Mrs. Vega is a 73 year old female with a history of CAD s/p CABG x 4 vessels 2011, Ischemic Cardiomyopathy (LVEF 45% to 50), Hypertension, Dyslipidemia, Metastatic NSCLC, Gastric Lymphoma(in remission), Sjogren's Syndrome, COPD, Chronic Nausea since starting Tarceva, Autoimmune Hepatitis, and Chronic Stable Angina Pectoris (exertional posterior thorax pain) who presented to [facility] ER today complaining of chest pain over the past couple of days off and on -- it is not her anginal pain. She denies any radiation of the discomfort and denies any associated nausea, vomiting, diaphoresis or dyspnea. She does admit to chronic nausea, but relates that to Tarceva. This pattern has not changed recently. Patient states that her appetite is stable, but that she eats very snacks about every hour because if she eats too much, she becomes more nauseated. Patient also uses Ensure and eats a lot of fruit. Patient denies any shortness of breath at rest, unusual dyspnea exertion, orthopnea, or PND. She denies any palpitations, tachy palpitations, syncope, or near syncope. Thus far, her troponin I level is 0.024 ng/mL. Her EKG shows a new Incomplete RBBB pattern -- which is likely secondary to her underlying lung disease. Principal Diagnosis Postobstructive pneumonia and lung cancer Discharge Exam The patient appeared thin and chronically ill Vital signs as documented. Head exam is unremarkable. normocephalic, atraumatic Neck is without jugular venous distension, thyromegaly, or lymphademopathy Lungs are coarse with poor air movement with no focal loss Cardiac exam reveals Rhythm is regular. Stock murmurs heard first and second heart sounds normal. Abdominal exam reveals normal bowel sounds, no masses, no organomegaly Extremities are nonedematous and both pedal pulses are present Neurologic exam is A&Ox3, no focal deficits, strength is equal bilateral Psychologically seems neither anxious or depressed Skin is warm Dry without bruises or lesions Discharge Data Allergies Allergy/AdvReac Type Severity Reaction Status Date / Time No Known Allergies Allergy Verified 07/10/18 11:49 Consultations 07/10/18 13:57 ED Decision to Admit Stat 07/10/18 21:21 Consult Pulmonology Routine Ordered Studies 07/10/18 17:44 CT angio chest PE protocol Urgent Hospital Course (1) Substernal chest pain: Mrs. Vega is a 73 year old female with a history of CAD s/p CABG x 4 vessels 2010, Ischemic Cardiomyopathy (LVEF 45% to 50), Hypertension, Dyslipidemia, Metastatic NSCLC, Gastric Lymphoma(in remission), Sjogren's Syndrome, COPD, Chronic Nausea since starting Tarceva, Autoimmune Hepatitis, and Chronic Stable Angina Pectoris (exertional posterior thorax pain) who presented with chest pain over the past couple of days off and on -- it is very dissimilar to her anginal pain. She denies any radiation of the discomfort and denies any associated nausea, vomiting, diaphoresis or dyspnea. Chest pain was likely due to post obstructive PNA and hypoxia, plus or malignancy. This improved after instituting steroid therapy -- Serial troponin negative Do not feel chest pain was acute coronary syndrome (2) Pneumonia: Likely post-obtructive PNA multifocal vs spread/progression of lung CA Transition antibiotics Cefdinir -Tapering steroid dose -continue O2 Consider post-obstructive PNA Patient also some underlying COPD she was given steroids in addition to her inhaled medications by pulmonary medicine and feels markedly better will transition his steroids to oral medications on 06/1818 - (3) Stable angina: CAD s/p CABG x 4 Vessels in December 2010. -- Still experiences exertional posterior thorax pain from time to time with over-exertion. -- This is her Stable Angina --no further chest pain while in the hospital -- Continue Metoprolol Tartrate 75 mg bid. -- Continue Imdur 60 mg daily. -- Continue Ranexa 500 mg bid. -- Continue Aspirin 81 mg daily. -- Continue Simvastatin 40 mg daily. (4) CAD, multiple vessel: As above. (5) Non-small cell lung cancer (NSCLC): With progressive disease, not responding to Tarceva Discussed case with Dr. De La O who feels the patient may be offered Tarceva, will have her PET scan rescheduled for the have labs in the and see him in the office on 21 July 2018 (6) Acute respiratory failure with hypoxia: continue supplemental O2 to keep POx>90% secondary to PNA and lung CA on top of acute on chronic respiratory failure from COPD Patient improved with steroids will continue these as an outpatient with tapering dose and pulmonary follow-up (7) HTN (hypertension): stable, continue isosorbide, metoprolol (8) Hyperlipemia: continue statin (9) Sjogren's disease: Will begin to taper her prednisone for her lung disease we will also cover her Sjogren's -continue Evoxac (10) Immunodeficiency: Hypogammaglobulinemia: Receives weekly infusions of Hizentra which helps- she used to have frequent infections (11) Osteoporosis: continue Evista Total Time Total Time Spent Total Time Spent (In Minutes): greater than 30 minutes were required to prepare discharge Discharge Plan Discharge Items Patient Disposition: Home - Self-Care Reason For Visit: CHEST PAIN Discharge Diagnosis: pneumonia Discharge Goals: Decrease discomfort and Diagnostic testing Activity: Resume your previous activity Non-emergency contact: Primary Care Provider and Oncologist Call non-emergency contact if: you have any medication questions Follow-up/Referrals: Dennis De La O DO [Physician] - 07/20/18 9:30 am (Please, follow up at [facility] for labs on ThursdayJuly 20 at 9:30 am. Please, follow up at [facility] with Dr. De La O on ThursdayJuly 21 at 9:10 am. *If you need to change this appointment, call the office at [phone].) Evin Villalpando MD [Primary Care Provider] - 07/19/18 10:45 am (Please, follow up with Dr. Preet Arango on ThursdayJuly 19 at 10:45 am. *If you need to change this appointment, call his office at [phone].) Diet: Regular Addtl Provider Instructions: you should have your PET scan scheduled for wednesday 07/19 labs 07/[address] De La O 07/21 Prescriptions: New cefdinir 300 mg capsule 300 mg PO BID 7 Days Qty: 14 RF: 0 prednisone 10 mg tablet 10 mg PO UD Qty: 40 RF: 0 pantoprazole [Protonix] 40 mg tablet,delayed release (DR/EC) 40 mg PO BID 30 Days Qty: 60 RF: 1 Continued resveratrol 100 mg Capsule 300 mg PO HS RF: 0 benzonatate 100 mg Capsule 100 mg PO TID PRN (Reason: Cough) RF: 0 hydrocodone-acetaminophen 5-325 mg Tablet 1 tab PO Q6H PRN (Reason: Pain) RF: 0 metoclopramide HCl 10 mg tablet 10 mg PO ACHS PRN (Reason: nausea and vomiting) Qty: 20 RF: 0 multivitamin Tablet 1 tab PO QPM RF: 0 potassium chloride 10 mEq Capsule, Extended Release 10 meq PO TID RF: 0 aspirin [Aspir-81] 81 mg Tablet,Delayed Release (Dr/Ec) 81 mg PO QDL RF: 0 simvastatin 40 mg Tablet 40 mg PO HS RF: 0 isosorbide mononitrate 60 mg Tablet Extended Release 24 Hr 60 mg PO QAM RF: 0 cevimeline 30 mg Capsule 30 mg PO TID RF: 0 nitroglycerin [Nitrostat] 0.4 mg Tablet, Sublingual 0.4 mg Sublingual UD PRN (Reason: Chest Pain) RF: 0 raloxifene 60 mg Tablet 60 mg PO HS RF: 0 magnesium 250 mg Tablet 500 mg PO QAM RF: 0 epinephrine [EpiPen] 0.3 mg/0.3 mL Auto-Injector 0.3 mg IM Q3H PRN (Reason: PRN) RF: 0 albuterol sulfate [ProAir HFA] 90 mcg/actuation Hfa Aerosol Inhaler 2 puff INHALATION QID RF: 0 ondansetron 4 mg Tablet,Disintegrating 8 mg PO QID PRN (Reason: Nausea) RF: 0 calcium carbonate-vitamin D3 [Calcium 500 + D] 500 mg(1,250mg) -200 unit Tablet 1 tab PO BID RF: 0 Ranexa 500 mg Tablet Extended Release 12 Hr 500 mg PO BID RF: 0 Probiotic 3 billion cell Capsule 3,000 mmu cells PO PM RF: 0 metoprolol tartrate 75 mg Tablet 75 mg PO BID RF: 0 Immune Globulin 8 g INJ WK RF: 0 Discontinued Tarceva 25 mg tablet 75 mg PO HS RF: 0 prednisone 1 mg tablet 3 mg PO QAM RF: 0 Stand-Alone Forms: [facility]/Other Patient Handouts: Cefdinir Oral capsule, Pneumonia Discharge Orders: Discharge Order (Routine); Ordered 07/14/18 Ordered By: Willie Avina Admission Data Admit Date/Time: 07/10/18 16:02 Attending Provider: Willie Avina Admit Provider: Deborah Lynch Primary Care Provider: Evin Villalpando Other Providers: Deborah Lynch ; Orlando Garcia Service: Telemetry Medical Other Interventions: Discharge Summary Assessment (RN) Last Done: 07/14/18 11:58 DC Date/Time DO NOT enter until pt leaves facility: 07/14/18 12:10
[2018-07-16 18:12] LABS: Aspergillus Antigen, Serum Not Detected (Not Detected); Aspergillus Flavus Negative (Negative); Aspergillus Niger Negative (Negative); Legionella pneumoph IgM, IFA <1:256 TITER; Mycoplasma pneumoniae Ab, IgG 2.39 (<=0.90); Mycoplasma pneumoniae Ab, IgM 117 U/mL (<770)
== END 2018-07-14 12:10 | disposition home or self-care (01) | DRG 193 ==
LOC: ED 09:58 → SUATTDRO 16:02 → 2S 16:02

== ENCOUNTER 2018-10-01 09:46 | Inpatient (IN) ==
[2018-10-01] MEDS ORDERED: ACETAMINOPHEN 325 MG TAB PO STA (10:15)
[2018-10-01] MEDS ORDERED: SODIUM CHLORIDE 0.9% 500 ML IV SCH (10:15)
[2018-10-01 10:40] LABS: Appearance Urine Clear (Clear); Bilirubin Urine Negative (Negative); Color Urine Yellow; Glucose Urine UA Negative (Negative); Ketones Urine Negative (Negative); Leukocyte Esterase Urine Negative (Negative); Nitrite Urine Negative (Negative); Protein Urine Negative (Negative); Specific Gravity Urine 1.019 (1.000-1.030); Urobilinogen Urine Negative (Negative); pH Urine 7.5 (4.5-7.5)
--- NOTE | 2018-10-01 10:54 | XRay Report ---
XR chest 1V portable HISTORY: fever COMPARISON: Chest 09/23/2018. FINDINGS: Left subclavian Port-A-Cath terminates in the SVC. The heart is stable in size. There are p oststernotomy changes. No pneumothorax. No pleural effusions. Diffuse interstitial thickening persist s. Patchy bibasilar densities have slightly progressed. Right upper lobe spiculated mass remains unch anged. IMPRESSION: 1. No change in the spiculated right upper lobe mass. 2. Slight progression of the patchy bibasilar densities. This may represent a developing pneumonia. Electronically signed by: Bucky Mclain M.D. 10/01/2018 10:52 AM
[2018-10-01 11:29] LABS: Mean Corpuscular Hgb Conc 33.2 g/dL (32-36)
[2018-10-01 11:33] LABS: Hematocrit (blood only) 28.9 % (37-47); Hemoglobin 9.6 g/dL (12.0-16.0); Mean Corpuscular Volume 88.4 fL (80-100); RDW Coefficient of Variation 21.4 % (11.5-14.5); RDW Standard Deviation 69.3 fL (36.4-46.3); Red Blood Count 3.27 M/uL (4.2-5.4); White Blood Count 2.39 K/uL (4.8-10.8)
[2018-10-01 11:37] LABS: Platelet Count 38 K/uL (130-400)
[2018-10-01 11:47] LABS: Alanine Aminotransferase 83 U/L (12-78); Albumin Level 2.4 gm/dl (3.4-5.0); Aspartate Aminotransferase 83 U/L (15-37); BUN Creatinine Ratio 28.6 (10-20); Blood Urea Nitrogen 20 mg/dl (7-18); Calcium 7.8 mg/dl (8.5-10.1); Carbon Dioxide 26 mmol/L (21-32); Chloride 100 mmol/L (98-107); Est GFR (African American) 98.9; Est GFR (Non-African American) 85.4; Glucose 90 mg/dl (70-99); Potassium 3.8 mmol/L (3.5-5.1); Sodium 131 mmol/L (136-145)
[2018-10-01 11:49] LABS: Albumin Globulin Ratio 0.6 (0.9-2); Alkaline Phosphatase 80 U/L (45-117); Bilirubin,Total 0.9 mg/dl (0.2-1); Globulin 3.7 gm/dl (2.5-4.0); Total Protein 6.1 gm/dl (6.4-8.2)
[2018-10-01 12:01] LABS: Anisocytosis Present; Immature Granulocytes # (auto) 0.01 K/uL (0.00-0.02); Immature Granulocytes % (auto) 0.4 %; Lymphocytes # (auto) 0.68 K/uL (1.2-3.4); Lymphocytes % (auto) 28.5 %; Monocytes # (auto) 0.05 K/uL (0.11-0.59); Monocytes % (auto) 2.1 %; Neutrophils # (auto) 1.65 K/uL (1.4-6.5); Platelet Estimate Decreased (Normal); Toxic Granulation 1+
--- NOTE | 2018-10-01 13:02 | History & Physical Report ---
Date of Service October 01, 2018 Assessment & Plan (1) Pneumonia: Patient be on Zosyn and oral of azithromycin she previously was on levofloxacin. There is also a history that she had Mycobacterium in her lung. She has had difficulty clearing this may consider re-engaging infectious disease also pulmonary med. Infectious disease was involved with her last admission. Blood cultures are pending (2) Steroid dependence: Patient is only on 3 mg of prednisone this will be increased to 10 orally temporarily will not use hydrocortisone unless she clinically appears to be very deficient (3) CAD, multiple vessel: Patient has a history of a coronary bypass graft and typically is on anginal medications including metoprolol 75 twice daily isosorbide 60 and Ranexa. She also takes atorvastatin for risk reduction as well as daily aspirin. These are all continued (4) Sjogren's disease: Patient takes cevimeline 30 3 times daily for her Sjogren's disease to try to improve her dry mouth. She is also will be given Magic mouthwash at her request (5) Non-small cell lung cancer (NSCLC): Patient has non-small cell lung cancer recently receiving chemo she currently is not neutropenic at this point in time she was with her last admission we will continue to follow follow her white count for the naomi and consider rescue if she has a significant naomi in the face of a confirmed infection Patient states after chemotherapy she is chronic nausea she is on scheduled Zofran which will be maintained with as needed promethazine (6) Transaminitis: Patient's visit transaminases are in the 80s systolically may be chemotherapeutically related we will not follow this unless she is other clinical signs or symptoms of liver dysfunction (7) COPD (chronic obstructive pulmonary disease): Patient states albuterol 2 puffs 4 times daily for her COPD this plus her steroids will be the treatment at this time without any anticholinergics added per the patient's description (8) DVT prophylaxis: Patient will be on Lovenox for DVT prevention History of Present Illness Primary Care Provider: Evin Villalpando MD 73-year-old female discharged from our hospital August 30 after being treated for a pneumonia associated with COPD lung small cell lung cancer currently receiving chemotherapy. At the time she was discharged on levofloxacin and at that presentation she was mildly neutropenic. After discharge the patient states she never really quite felt like she bounced back however continued to remain in her chemotherapeutic cycle and did receive chemotherapy 2 days prior to this admission. She presents to the hospital today with weakness nonproductive cough and a fever. In the ER she is not neutropenic currently but she is only 2 days out of chemo her temperature was 38.5 she is mildly hypertensive not hypoxic. Chest x-ray upon review does show persistent right upper lobe spiculated mass wh ich was known from previous and previously diagnosed as non-small cell lung cancer. Patient however does have some right basilar changes which is consistent with pneumonia and does look to be progressive from previous at the time of discharge patient was on a prednisone taper she currently has resumed her normal daily dose of 3 mg a day. Patient cannot site any other physical concerns or be associated as a source of her fever Patient suffers from daily nausea since her chemotherapy does take scheduled Zofran which we will continue Allergies Allergy/AdvReac Type Severity Reaction Status Date / Time No Known Allergies Allergy Verified 10/01/18 10:27 Home Medications Home Medications Medication Instructions Recorded Confirmed Type albuterol sulfate [ProAir HFA] 2 puff INHALATION QID 06/21/18 10/01/18 History aspirin [Aspir-81] 81 mg PO QDL 06/21/18 10/01/18 History cevimeline 30 mg PO TIDM 06/21/18 10/01/18 History epinephrine [EpiPen] 0.3 mg IM Q3H PRN 06/21/18 10/01/18 History isosorbide mononitrate 60 mg PO QAM 06/21/18 10/01/18 History magnesium 500 mg PO QAM 06/21/18 10/01/18 History metoprolol tartrate 75 mg PO BID 06/21/18 10/01/18 History multivitamin 1 tab PO QPM 06/21/18 10/01/18 History nitroglycerin [Nitrostat] 0.4 mg SUBLINGUAL UD PRN 06/21/18 10/01/18 History ondansetron 8 mg PO QID PRN 06/21/18 10/01/18 History potassium chloride 10 meq PO TIDM 06/21/18 10/01/18 History raloxifene 60 mg PO QPM 06/21/18 10/01/18 History ranolazine [Ranexa] 500 mg PO BID 06/21/18 10/01/18 History simvastatin 40 mg PO HS 06/21/18 10/01/18 History Calcium 600 + D(3) 1 cap PO BIDM 09/06/18 10/01/18 History Hizentra 8 g SUBCUT WK 09/06/18 10/01/18 History Plexus-Probio 5 1 tab PO PM 09/23/18 10/01/18 History Resveratrol Plus 300mg 300 mg PO HS 09/23/18 10/01/18 History bevacizumab [Avastin] 0 mg IV UD 09/23/18 10/01/18 History carboplatin 0 mg IV UD 09/23/18 10/01/18 History dexamethasone 4 mg PO UD 09/23/18 10/01/18 History diphenoxylate-atropine 1 - 2 tab PO Q4H PRN 09/23/18 10/01/18 History hydrocodone-acetaminophen 1 tab PO Q6H PRN 09/23/18 10/01/18 History paclitaxel 0 mg IV UD 09/23/18 10/01/18 History pantoprazole 40 mg PO BID 09/23/18 10/01/18 History prednisone 10 mg PO QAM 09/23/18 10/01/18 History prochlorperazine maleate 10 mg PO Q6H PRN 09/23/18 10/01/18 History benzonatate 100 mg PO UD PRN 09/25/18 10/01/18 History Past Med/Surg History Medical History Full cardiopulmonary resuscitation status (Acute) Hypomagnesemia Immunosuppression Lung cancer, upper lobe Steroid dependence COPD exacerbation (Acute) Pneumonia (Acute) Acute respiratory failure with hypoxia (Acute) Sjogren's disease (Chronic) Non-small cell lung cancer (NSCLC) (Acute) Stable angina CAD (coronary artery disease), [place] coronary artery With stable angina Decreased diffusion capacity of lung GERD (gastroesophageal reflux disease) DIET CONTROLLED History of lung cancer DX 1 YEAR AGO. 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 Surgical History Coronary artery bypass grafts x 4 (Chronic 06/13/12) History of arthroscopy RIGHT KNEE MENISCUS History of cholecystectomy History of colonoscopy History of coronary artery bypass graft [address], 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 Feels Safe at Home: Yes Smoking Status: Never smoker Second Hand Exposure: No Hx Alcohol Use: No Hx Substance Use: No Review of Systems Review of Systems: ROS: Patient is very thin and small at 4 foot 10 No double vision blurry vision No problems with speech or swallowing No palpitations, chest pain or pressure Coughing shortness of breath nonproductive cough No abdominal pain nausea vomiting diarrhea changes in appetite or weight No burning urine urine frequency or changes in color Chronic diffuse small joint pain consistent with her previous history of arthritis No skin rashes chronic oral dryness and decreased saliva Right lower extremity skin discoloration Chronic daily mild non-focused back pain but no numbness or loss of strength No changes in memory or confusion Physical Exam Physical Exam: The patient appeared thin frail and chronically ill Vital signs as documented. Fever and mild elevation of blood pressure Head exam is unremarkable. normocephalic, atraumatic Oropharynx is without thrush there are no exudates only mildly erythemic Neck is without jugular venous distension, thyromegaly, or lymphademopathy specifically no supraclavicular nodes Lungs are decreased breath sounds bilaterally mild crackles at the right base Cardiac exam reveals Rhythm is regular. First and second heart sounds normal but very distant. Abdominal exam reveals normal bowel sounds, no masses, no organomegaly Extremities are nonedematous and both pedal pulses are present chronic discoloration of skin to her lower extremity possibly consistent with chronic venous stasis additional she has abnormalities of her ankles bilaterally Neurologic exam is A&Ox3, no focal deficits, strength is equal bilateral globally reduced Psychologically seems neither anxious or depressed Skin is warm / Dry lesions as mentioned Results & Data Vital Signs (Past 12 Hours) Vital Signs Temp Pulse Pulse Resp BP BP Pulse Ox 10/01/18 11:08 99 H 20 155/90 H 92 10/01/18 10:09 38.5 C H 101 H 20 159/106 H 93 Chest x-ray No change in the spiculated right upper lobe mass. Slight progression of the patchy bibasilar densities. This may represent a developing pneumoni (1) Pneumonia Laterality: right Lung location: lower lobe of lung Pneumonia type: due to unspecified organism Qualified Code(s): J18.1 - Lobar pneumonia, unspecified organism (2) Non-small cell lung cancer (NSCLC) Laterality: right Qualified Code(s): C34.91 - Malignant neoplasm of unspecified part of right bronchus or lung
[2018-10-01] MEDS ORDERED: ONDANSETRON 4 MG OD TAB PO PRN (13:38)
[2018-10-01] MEDS ORDERED: ACETAMINOPHEN 325 MG TAB PO PRN (13:38)
[2018-10-01] MEDS ORDERED: PROMETHAZINE HCL 12.5 MG in SODIUM CHLORIDE 0.9% 50 ML IV PRN (13:38)
[2018-10-01] MEDS ORDERED: PIPERACILL/TAZOBAC CONSULT ACTIVE PRN (13:38)
[2018-10-01] MEDS ORDERED: PROCHLORPERAZINE MALEATE 10 MG TAB PO PRN (13:38)
[2018-10-01] MEDS ORDERED: HYDROCODONE/ACETAMOPHEN 5/325MG TAB PO PRN (13:38)
[2018-10-01] MEDS ORDERED: NITROGLYCERIN SL 0.4 MG/TAB TAB SL PRN (13:38)
[2018-10-01 14:27] LABS: Partial Thromboplastin Ratio 0.9; Partial Thromboplastin Time 24.5 Seconds (21.0-31.0); Prothrombin Time 9.9 Seconds (9.0-12.0)
[2018-10-01] MEDS ORDERED: PIPERACILLIN/TAZOBACTAM 4.5 GM in DEXTROSE 5% 100 ML IV ONE (14:30)
[2018-10-01] MEDS ORDERED: AZITHROMYCIN 500 MG in DEXTROSE 5% 250 ML IV ONE (14:30)
[2018-10-01] MEDS: HEPARIN 100 UNIT/ML 5ML FLUSH FLUSH SCH (14:59)
[2018-10-01] MEDS: ONDANSETRON INJ 2 MG/ML 2 ML VIAL IV PRN (14:59)
[2018-10-01] MEDS: GUAIFENESIN/CODEINE 200MG/20MG 10ML UDC PO PRN ×2 (15:00→22:19)
[2018-10-01] MEDS: ONDANSETRON 4 MG TAB PO SCH ×2 (15:13→20:08)
[2018-10-01] MEDS: DEXAMETHASONE CONC 3.75 MG, NYSTATIN 30 ML, DiphenhydrAMINE Syrup 300 MG, ORA-SWEET SYR... PO PRN (15:37)
[2018-10-01] MEDS ORDERED: MULTIVITAMIN TAB PO SCH (16:00)
[2018-10-01] MEDS: ALBUTEROL HFA INHALER 8.5 GM INH SCH ×3 (16:20→20:09)
[2018-10-01] MEDS: ENOXAPARIN INJ 40 MG/0.4 ML SYR SQ SCH (16:20)
[2018-10-01] MEDS: POTASSIUM CHLORIDE 10 MEQ TABCR PO SCH (17:43)
[2018-10-01] MEDS: CALCIUM 600MG + VIT D 400 IU TAB PO SCH (17:44)
[2018-10-01] MEDS: RALOXIFENE HCL 60 MG TAB PO SCH (17:44)
[2018-10-01] MEDS: MULTIVITAMIN TAB PO SCH (17:45)
[2018-10-01] MEDS ORDERED: POLYETHYLENE (MIRALAX) 17 GM PACK PO PRN (18:12)
--- NOTE | 2018-10-01 18:15 | Emergency Department Note ---
Entered by Dustin Santos acting as a scribe for History of Present Illness General Chief complaint: Fever Source: patient History of Present Illness Provider complaint: Fever Onset (ago): hour(s) (Today) Location: head Pain Consistency: + constant Relieved By: + none Exacerbated By: + none Associated symptoms: + cough, + fever/chills, + headaches and + other (Positive dizziness; Positive congestion; Negative diarrhea); no chest pain and no rash The patient is a 73 year old female who presents to the Emergency Room after being sent here by the cancer center, with complaints of a constant fever that started today. The nurse reports that the fever was as high as 39.3C. The patient states she is also feeling intermittently dizzy and has a headache. She also has a persistent dry cough. The patient is currently being treated for lung cancer with chemotherapy. Her most recent chemotherapy treatment was 2 days ago. The patient denies any chest pain, abdominal pain, vomiting, diarrhea, or rashes. Home Medications Home Medications Medication Instructions Recorded Confirmed Type albuterol sulfate [ProAir HFA] 2 puff INHALATION QID 06/21/18 10/01/18 History aspirin [Aspir-81] 81 mg PO QDL 06/21/18 10/01/18 History cevimeline 30 mg PO TIDM 06/21/18 10/01/18 History epinephrine [EpiPen] 0.3 mg IM Q3H PRN 06/21/18 10/01/18 History isosorbide mononitrate 60 mg PO QAM 06/21/18 10/01/18 History magnesium 500 mg PO QAM 06/21/18 10/01/18 History metoprolol tartrate 75 mg PO BID 06/21/18 10/01/18 History multivitamin 1 tab PO QPM 06/21/18 10/01/18 History nitroglycerin [Nitrostat] 0.4 mg SUBLINGUAL UD PRN 06/21/18 10/01/18 History ondansetron 8 mg PO QID PRN 06/21/18 10/01/18 History potassium chloride 10 meq PO TIDM 06/21/18 10/01/18 History raloxifene 60 mg PO QPM 06/21/18 10/01/18 History ranolazine [Ranexa] 500 mg PO BID 06/21/18 10/01/18 History simvastatin 40 mg PO HS 06/21/18 10/01/18 History Calcium 600 + D(3) 1 cap PO BIDM 09/06/18 10/01/18 History Hizentra 8 g SUBCUT WK 09/06/18 10/01/18 History Plexus-Probio 5 1 tab PO PM 09/23/18 10/01/18 History Resveratrol Plus 300mg 300 mg PO HS 09/23/18 10/01/18 History bevacizumab [Avastin] 0 mg IV UD 09/23/18 10/01/18 History carboplatin 0 mg IV UD 09/23/18 10/01/18 History dexamethasone 4 mg PO UD 09/23/18 10/01/18 History diphenoxylate-atropine 1 - 2 tab PO Q4H PRN 09/23/18 10/01/18 History hydrocodone-acetaminophen 1 tab PO Q6H PRN 09/23/18 10/01/18 History paclitaxel 0 mg IV UD 09/23/18 10/01/18 History pantoprazole 40 mg PO BID 09/23/18 10/01/18 History prednisone 10 mg PO QAM 09/23/18 10/01/18 History prochlorperazine maleate 10 mg PO Q6H PRN 09/23/18 10/01/18 History benzonatate 100 mg PO UD PRN 09/25/18 10/01/18 History Allergies Allergy/AdvReac Type Severity Reaction Status Date / Time No Known Allergies Allergy Verified 10/01/18 10:27 Past Med/Surg History Medical History Full cardiopulmonary resuscitation status (Acute) Hypomagnesemia Immunosuppression Lung cancer, upper lobe Steroid dependence COPD exacerbation (Acute) Pneumonia (Acute) Acute respiratory failure with hypoxia (Acute) Sjogren's disease (Chronic) Non-small cell lung cancer (NSCLC) (Acute) Stable angina CAD (coronary artery disease), [place] coronary artery With stable angina Decreased diffusion capacity of lung GERD (gastroesophageal reflux disease) DIET CONTROLLED History of lung cancer DX 1 YEAR AGO. 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 Surgical History Coronary artery bypass grafts x 4 (Chronic 06/13/12) History of arthroscopy RIGHT KNEE MENISCUS History of cholecystectomy History of colonoscopy History of coronary artery bypass graft 4 VESSEL, [facility] [place] 6 YEARS AGO History of hysterectomy History of surgical removal of meniscus of knee Family History Unknown Heart disease Other Family history non-contributory Social History Preferred Language: Mohawk Communication Ability: Effective Beliefs That Will Affect Care: None marital status: Current Living Situation: Spouse and Family Current Living Situation Comment: and son current occupational status: retired 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 and A total of 10 systems reviewed and were otherwise negative Physical Exam Vital Signs Vital Signs - 24 hr 10/01/18 10:09 10/01/18 11:08 Temperature 38.5 C H Temperature Source Oral Pulse Rate 101 H Pulse Rate [Apical] 99 H Respiratory Rate 20 20 Respiratory Effort / Characteristics Non-Labored Spontaneous Non-Labored Spontaneous Respiratory Depth Normal Normal Respiratory Pattern Regular Regular Blood Pressure 159/106 H Blood Pressure [Left Arm] 155/90 H Blood Pressure Mean 123 Blood Pressure Mean [Left Arm] 111 Blood Pressure Position Sitting Blood Pressure Position [Left Arm] Sitting Pulse Oximetry 93 92 Oxygen Delivery Method Room Air Room Air Constitutional: Vital signs reviewed. Eyes: Pupils are equal round reactive to light. Conjunctiva are noninjected. ENT: Pharynx is clear without erythema or exudate. Mucous membranes are dry. Neck supple without meningeal signs. Respiratory: Minimal scattered wheezing. Breath sounds are equal bilaterally. Cardiovascular: Regular rate and rhythm. No rubs or gallops. GI: Soft, nondistended and nontender. Bowel sounds are present. Musculoskeletal: No peripheral edema. No lower extremity tenderness. Port accessed on chest wall. Integumentary: No cyanosis. Neurological: The patient is awake and alert. No focal deficits. Psychiatric: Normal affect. Course 1011: Past medical records reviewed. The patient was evaluated in room A04B, and a complete history and physical examination were performed. 1204: I discussed the results with the patient and went over her treatment plan. She agrees with the plan. I also spoke to Dr. Avina [facility] Hospitalist about the patient's case and he is going to accept her for further evaluation. Consultations Consultation #1: I discussed the results with the patient and went over her treatment plan. She agrees with the plan. I also spoke to Dr. Avina [facility] Hospitalist about the patient's case and he is going to accept her for further evaluation. Time: 12:04 Administered Medications Albuterol (Proair Hfa) 2 puffs INH QID RANI Stop: 10/31/18 14:29 Last Admin: 10/01/18 17:44 Dose: 2 puffs Documented by: [id number] Admin: 10/01/18 16:20 Dose: 2 puffs Documented by: [id number] Dexamethasone 3.75 mg/Nystatin 30 ml/Diphenhydramine HCl 300 mg/Sucrose 45 ml/Microcrystalline Cellulose 45 ml/ BARCODE IDENTIFIER 1 ea 0 mg PO Q4H PRN PRN Reason: MOUTH PAIN Stop: 10/31/18 13:37 Last Admin: 10/01/18 15:37 Dose: 10 ml Documented by: [id number] Enoxaparin Sodium (Lovenox) 40 mg SQ Q24H RANI Stop: 10/31/18 14:59 Last Admin: 10/01/18 16:20 Dose: 40 mg Documented by: [id number] Guaifenesin/Codeine Phosphate (Robitussin-Ac Sugar Free) 10 ml PO Q6H PRN PRN Reason: Cough Stop: 10/31/18 13:37 Last Admin: 10/01/18 15:00 Dose: 10 ml Documented by: [id number] Heparin Sodium (Porcine) (Heparin Sod 100 Unit/Ml Flush) 5 ml FLUSH PRN RANI Stop: 10/31/18 14:14 Last Admin: 10/01/18 14:59 Dose: 5 ml Documented by: [id number] Miscellaneous (Order Awaiting Action) 1 ea N/A QS RANI Stop: 10/31/18 15:59 Last Admin: 10/01/18 17:17 Dose: Not Given Documented by: [id number] Multivitamins (Multivitamin Tab) 1 tab PO DAILY@1700 [facility] Stop: 10/31/18 16:59 Last Admin: 10/01/18 17:45 Dose: 1 tab Documented by: [id number] Multivitamins/Minerals (Caltrate Plus) 1 tab PO BIDM [facility] Stop: 10/31/18 16:59 Last Admin: 10/01/18 17:44 Dose: 1 tab Documented by: [id number] Ondansetron HCl (Zofran) 4 mg IV Q6H PRN PRN Reason: Nausea Stop: 10/31/18 13:37 Last Admin: 10/01/18 14:59 Dose: 4 mg Documented by: [id number] Ondansetron HCl (Zofran) 4 mg PO TID [facility] Stop: 10/31/18 14:29 Last Admin: 10/01/18 15:13 Dose: Not Given Documented by: [id number] Potassium Chloride (Klor-Con M10) 10 meq PO TIDM [facility] Stop: 10/31/18 16:59 Last Admin: 10/01/18 17:43 Dose: 10 meq Documented by: [id number] Raloxifene HCl (Evista) 60 mg PO DAILY@1700 [facility] Stop: 10/31/18 16:59 Last Admin: 10/01/18 17:44 Dose: 60 mg Documented by: [id number] Discontinued Medications Acetaminophen (Tylenol) 650 mg PO ONE [facility] Stop: 10/01/18 10:16 Last Admin: 10/01/18 10:53 Dose: 650 mg Documented by: [id number] Sodium Chloride (Nss) 500 mls @ 999 mls/hr IV .Q31M [facility] Stop: 10/01/18 10:45 Last Infusion: 10/01/18 11:29 Dose: 0 mls/hr Documented by: [id number] Admin: 10/01/18 10:58 Dose: 999 mls/hr Documented by: [id number] Azithromycin 500 mg/ Dextrose 255 mls @ 127.5 mls/hr IV 1430 ONE Stop: 10/01/18 16:29 Last Admin: 10/01/18 16:19 Dose: 127.5 mls/hr Documented by: [id number] Piperacillin Sod/Tazobactam (Sod 4.5 gm/ Dextrose) 120 mls @ 200 mls/hr IV NOW ONE; Protocol Stop: 10/01/18 15:05 Last Infusion: 10/01/18 15:55 Dose: 0 mls/hr Documented by: [id number] Admin: 10/01/18 15:00 Dose: 200 mls/hr Documented by: [id number] Medical Decision Making Differential Diagnosis Differential Diagnosis includes: Pneumonia, UTI, Sepsis, Bacteremia, and Neutropenia, amongst others. Medical Records Attestation: I reviewed the patient's medical records. The patient was seen here on September 25 for dehydration. Labs showed pancytopenia and hyponatremia. Home Medications Current Medication List: was personally reviewed by mn Laboratory Data Attestation: I reviewed the patient's lab results. Result diagrams: 10/01/18 11:12 10/01/18 11:12 Lab Results 10/01/18 10/01/18 10/01/18 Range/Units 10:20 11:12 11:12 WBC 2.39 L (4.8-10.8) K/uL RBC 3.27 L (4.2-5.4) M/uL Hgb 9.6 L (12.0-16.0) g/dL Hct 28.9 L (37-47) % MCV 88.4 (80-100) fL MCH 29.4 (25-34) pg MCHC 33.2 (32-36) g/dL RDW Std Deviation 69.3 H (36.4-46.3) fL RDW Coeff of Marlene 21.4 H (11.5-14.5) % Plt Count 38 L (130-400) K/uL Immature Gran % (Auto) 0.4 % Neut % (Auto) 69.0 % Lymph % (Auto) 28.5 % [place] % (Auto) 2.1 % Eos % (Auto) 0.0 % Baso % (Auto) 0.0 % Immature Gran # (Auto) 0.01 (0.00-0.02) K/uL Neut # (Auto) 1.65 (1.4-6.5) K/uL Lymph # (Auto) 0.68 L (1.2-3.4) K/uL [place] # (Auto) 0.05 L (0.11-0.59) K/uL Eos # (Auto) 0.00 (0-0.5) K/uL Baso # (Auto) 0.00 (0-0.2) K/uL Toxic Granulation 1+ Platelet Estimate Decreased L (Normal) Anisocytosis Present PT (9.0-12.0) Seconds INR (0.9-1.1) APTT (21.0-31.0) Seconds PTT Ratio Sodium 131 L (136-145) mmol/L Potassium 3.8 (3.5-5.1) mmol/L Chloride 100 (98-107) mmol/L Carbon Dioxide 26 (21-32) mmol/L Anion Gap 5.0 (3-11) BUN 20 H (7-18) mg/dl Creatinine 0.70 (0.6-1.2) mg/dl Est Cr Clr Drug Dosing Not Reportable Est GFR ( Amer) 98.9 Est GFR (Non-Af Amer) 85.4 BUN/Creatinine Ratio 28.6 H (10-20) Glucose 90 (70-99) mg/dl POC Lactic Acid Terry (0.90-1.70) mmol/L Calcium 7.8 L (8.5-10.1) mg/dl Total Bilirubin 0.9 (0.2-1) mg/dl AST 83 H (15-37) U/L ALT 83 H (12-78) U/L Alkaline Phosphatase 80 (45-117) U/L Total Protein 6.1 L (6.4-8.2) gm/dl Albumin 2.4 L (3.4-5.0) gm/dl Globulin 3.7 (2.5-4.0) gm/dl Albumin/Globulin Ratio 0.6 L (0.9-2) Procalcitonin (0-0.5) ng/ml Urine Color Yellow Urine Appearance Clear (Clear) Urine pH 7.5 (4.5-7.5) Ur Specific [place] 1.019 (1.000-1.030) Urine Protein Negative (Negative) Urine Glucose (UA) Negative (Negative) Urine Ketones Negative (Negative) Urine Blood Negative (Negative) Urine Nitrite Negative (Negative) Urine Bilirubin Negative (Negative) Urine Urobilinogen Negative (Negative) Ur Leukocyte Esterase Negative (Negative) 10/01/18 10/01/18 10/01/18 Range/Units 11:12 11:12 11:20 WBC (4.8-10.8) K/uL RBC (4.2-5.4) M/uL Hgb (12.0-16.0) g/dL Hct (37-47) % MCV (80-100) fL MCH (25-34) pg MCHC (32-36) g/dL RDW Std Deviation (36.4-46.3) fL RDW Coeff of Marlene (11.5-14.5) % Plt Count (130-400) K/uL Immature Gran % (Auto) % Neut % (Auto) % Lymph % (Auto) % [place] % (Auto) % Eos % (Auto) % Baso % (Auto) % Immature Gran # (Auto) (0.00-0.02) K/uL Neut # (Auto) (1.4-6.5) K/uL Lymph # (Auto) (1.2-3.4) K/uL [place] # (Auto) (0.11-0.59) K/uL Eos # (Auto) (0-0.5) K/uL Baso # (Auto) (0-0.2) K/uL Toxic Granulation Platelet Estimate (Normal) Anisocytosis PT 9.9 (9.0-12.0) Seconds INR 1.0 (0.9-1.1) APTT 24.5 (21.0-31.0) Seconds PTT Ratio 0.9 Sodium (136-145) mmol/L Potassium (3.5-5.1) mmol/L Chloride (98-107) mmol/L Carbon Dioxide (21-32) mmol/L Anion Gap (3-11) BUN (7-18) mg/dl Creatinine (0.6-1.2) mg/dl Est Cr Clr Drug Dosing Est GFR ( Amer) Est GFR (Non-Af Amer) BUN/Creatinine Ratio (10-20) Glucose (70-99) mg/dl POC Lactic Acid Terry 2.29 H (0.90-1.70) mmol/L Calcium (8.5-10.1) mg/dl Total Bilirubin (0.2-1) mg/dl AST (15-37) U/L ALT (12-78) U/L Alkaline Phosphatase (45-117) U/L Total Protein (6.4-8.2) gm/dl Albumin (3.4-5.0) gm/dl Globulin (2.5-4.0) gm/dl Albumin/Globulin Ratio (0.9-2) Procalcitonin 0.13 (0-0.5) ng/ml Urine Color Urine Appearance (Clear) Urine pH (4.5-7.5) Ur Specific [place] (1.000-1.030) Urine Protein (Negative) Urine Glucose (UA) (Negative) Urine Ketones (Negative) Urine Blood (Negative) Urine Nitrite (Negative) Urine Bilirubin (Negative) Urine Urobilinogen (Negative) Ur Leukocyte Esterase (Negative) Imaging Data Radiologist's Impression: Radiology results as stated below per my review and the radiologist's interpretation: XR chest 1V portable HISTORY: fever COMPARISON: Chest 09/23/2018. FINDINGS: Left subclavian Port-A-Cath terminates in the SVC. The heart is stable in size. There are poststernotomy changes. No pneumothorax. No pleural effusions. Diffuse interstitial thickening persists. Patchy bibasilar densities have slightly progressed. Right upper lobe spiculated mass remains unchanged. IMPRESSION: 1. No change in the spiculated right upper lobe mass. 2. Slight progression of the patchy bibasilar densities. This may represent a developing pneumonia. Electronically signed by: Bucky Mclain M.D. 10/01/2018 10:52 AM Blood Pressure Blood Pressure Findings: Elevated blood pressure Blood Pressure Disposition: further management by hospitalist KATIE Narrative I did evaluate the patient as noted above. The patient has a history of cancer and is being treated with chemotherapy. She developed a fever today and was sent here from the cancer center for evaluation. She does have a cough. IV access was established. The patient was placed on a continuous gambling monitor. I did order and personally reviewed the images of the patient's chest x-ray as described above. She does have infiltrates concerning for developing pneumonia in the bibasilar areas. I did order a urine analysis. There is no evidence of infection. Blood cultures were sent. I did order and review the patient's blood work as noted in the electronic medical record. She has pancytopenia. She is not neutropenic. Her lactic acid is elevated. She does have hyponatremia. I did discuss the test results with the patient. I did recommend hospitalization for IV antibiotics. I did discuss the case with the hospitalist and bilingual patient support caseworker. Impression & Plan Bilateral pneumonia, COPD (chronic obstructive pulmonary disease), Lung cancer, Pancytopenia, Hyponatremia Discharge Plan Visit Data *Final* Discharge Date/Time: 10/01/18 13:08 Chief Complaint: Fever ED Provider: Willie Newton Discharge Problem: Bilateral pneumonia, COPD (chronic obstructive pulmonary disease), Lung cancer, Pancytopenia, Hyponatremia Patient Disposition: Admitted As Inpatient Discharge Instructions Interventions: ED Discharge Assessment Last Done: 10/01/18 13:08 Discharge Problem: Bilateral pneumonia Qualifiers: Pneumonia type: due to unspecified organism Lung location: lower lobe of lung Qualified Code(s): J18.1 - Lobar pneumonia, unspecified organism COPD (chronic obstructive pulmonary disease) Qualifiers: COPD type: COPD with acute lower respiratory infection Qualified Code(s): J44.0 - Chronic obstructive pulmonary disease with acute lower respiratory infection Lung cancer Qualifiers: Laterality: unspecified laterality Lung location: unspecified part of lung Qualified Code(s): C34.90 - Malignant neoplasm of unspecified part of unspecified bronchus or lung The scribe's documentation has been prepared under my direction and personally reviewed by me in its entirety. I confirm that the note above accurately reflects all work, treatment, procedures, and medical decision making performed by me.
[2018-10-01] MEDS ORDERED: POLYETHYLENE (MIRALAX) 17 GM PACK ONE (18:25)
[2018-10-01] MEDS: PIPERACILLIN/TAZOBACTAM 3.375 GM in DEXTROSE 5% 100 ML IV SCH (19:56)
[2018-10-01] MEDS: METOPROLOL TARTRATE 25 MG TAB PO SCH (20:08)
[2018-10-01] MEDS: RANOLAZINE 500 MG ER TAB PO SCH (20:08)
[2018-10-01] MEDS: PANTOprazole 40 MG TAB PO SCH (20:08)
[2018-10-01] MEDS ORDERED: SIMVASTATIN 40 MG TAB PO SCH (21:00)
[2018-10-01] MEDS ORDERED: LEVALBUTEROL HCL 0.63 MG/3 ML NEB NEB PRN (22:48)
[2018-10-02] MEDS: OXYMETAZOLINE 0.05% 30 ML BTL PRN (01:52)
[2018-10-02] MEDS: DEXAMETHASONE CONC 3.75 MG, NYSTATIN 30 ML, DiphenhydrAMINE Syrup 300 MG, ORA-SWEET SYR... PO PRN ×3 (01:54→16:34)
[2018-10-02] MEDS: PIPERACILLIN/TAZOBACTAM 3.375 GM in DEXTROSE 5% 100 ML IV SCH ×3 (03:17→19:45)
[2018-10-02] MEDS: ONDANSETRON INJ 2 MG/ML 2 ML VIAL IV PRN ×2 (04:04→09:47)
[2018-10-02 06:55] LABS: Calcium 7.3 mg/dl (8.5-10.1); Creatinine Clr Calc Pharmacy 56.1 ml/min; Est GFR (African American) 106.5; Est GFR (Non-African American) 91.9; Potassium 3.3 mmol/L (3.5-5.1)
[2018-10-02 07:21] LABS: Hemoglobin 7.5 g/dL (12.0-16.0); Mean Corpuscular Hgb Conc 32.6 g/dL (32-36); Mean Corpuscular Volume 87.5 fL (80-100); Platelet Count 26 K/uL (130-400); Platelet Estimate SIGNIFIC DECREASED (Normal); RDW Coefficient of Variation 21.7 % (11.5-14.5); RDW Standard Deviation 69.3 fL (36.4-46.3); Red Blood Count 2.63 M/uL (4.2-5.4); White Blood Count 1.51 K/uL (4.8-10.8)
[2018-10-02] MEDS: CALCIUM 600MG + VIT D 400 IU TAB PO SCH ×2 (07:30→16:32)
[2018-10-02] MEDS: POTASSIUM CHLORIDE 10 MEQ TABCR PO SCH ×3 (07:30→16:31)
[2018-10-02] MEDS: ISOSORBIDE MONO EXTENDED REL 60 MG TABCR PO SCH (07:30)
[2018-10-02] MEDS: ALBUTEROL HFA INHALER 8.5 GM INH SCH ×4 (07:31→20:00)
[2018-10-02] MEDS: predniSONE 10 MG TABLET PO SCH (07:31)
[2018-10-02] MEDS: RANOLAZINE 500 MG ER TAB PO SCH ×2 (07:31→20:00)
[2018-10-02] MEDS: METOPROLOL TARTRATE 25 MG TAB PO SCH ×2 (07:31→20:00)
[2018-10-02] MEDS: PANTOprazole 40 MG TAB PO SCH ×2 (07:31→20:00)
[2018-10-02] MEDS: ONDANSETRON 4 MG TAB PO SCH ×3 (07:32→20:01)
[2018-10-02] MEDS: HEPARIN 100 UNIT/ML 5ML FLUSH FLUSH SCH (07:35)
[2018-10-02 08:30] LABS: Basophils # (auto) 0.01 K/uL (0-0.2); Basophils % (auto) 0.7 %; Eosinophils # (auto) 0.01 K/uL (0-0.5); Eosinophils % (auto) 0.7 %; Immature Granulocytes # (auto) 0.01 K/uL (0.00-0.02); Immature Granulocytes % (auto) 0.7 %; Lymphocytes # (auto) 0.75 K/uL (1.2-3.4); Mean Platelet Volume 10.9 fL (7.4-10.4); Monocytes # (auto) 0.03 K/uL (0.11-0.59); Neutrophils % (auto) 46.9 %
[2018-10-02] MEDS ORDERED: NON-FORMULARY MEDICATION (Magnesium 500 MG) PO SCH (09:00)
[2018-10-02] MEDS ORDERED: SACCHAROMYCES BOULARDII 250 MG CAP PO SCH (09:00)
[2018-10-02] MEDS ORDERED: MAGNESIUM SULFATE / D5W 1 GM/100 ML BAG IV ONE (09:15)
[2018-10-02] MEDS: AZITHROMYCIN 250 MG/6.25 ML UDP PO SCH (09:47)
[2018-10-02] MEDS ORDERED: OR MISCELLANEOUS MED XX SCH (10:41)
[2018-10-02] MEDS: POTASSIUM CHLORIDE / WTR 10 MEQ/100 ML PLCT IV SCH ×4 (10:59→14:41)
[2018-10-02] MEDS: ASPIRIN 81 MG ECTAB PO SCH (12:07)
[2018-10-02 13:08] LABS: Neutrophils # (auto) 0.72 K/uL (1.4-6.5)
--- NOTE | 2018-10-02 13:15 | Family Medicine Progress Note ---
Date of Service October 02, 2018 Assessment & Plan (1) Bilateral pneumonia: 73-year-old female was admitted on 01 October 2018 for weakness, non- productive cough, and fever on chemotherapy. Pneumonia, febrile neutropenia: Last discharge on 06Ma on levofloxacin for PNA. Febrile on arrival. Admit pCXR noted possible bibasilar opacities. 07BCx sent. 07Jun started on Zosyn and azithromycin. - Consulted ID regarding thoughts on antibiotics given febrile neutropenia and questionable new pneumonia. - Recheck CXR in AM. Non-small cell lung cancer: On chemotherapy since last 16May discharge, last round 05Sep. Daily nausea, controlled with Zofran prn. - Consulted her oncologist, Dr. De La O, for further assistance including post- chemo pancytopenia as below. - Ordered her home weekly Hizentra today. She was due for a dose yesterday (). Pancytopenia: S/p chemotherapy. On neutropenia precautions. - Admit ANC 1358, today ANC 708. Presently afebrile and generally asymptomatic. - Anemia: Recent Hb 9s. Admit Hb 9.8, down to 7.5. Monitoring for now. - Thrombocytopenia: Platelets down to 26. Patient did note epistaxis, now resolved, throughout the day/evening of . Discussed pros/cons of transfusion since < 50. Holding off for now, will get oncology advice. Electrolyte abnormalities: - Hypocalcemia: Ca down to 7.3, though corrects to 8.6 for hypoalbuminemia. - Hypokalemia: K down to 3.3. Replaced, monitoring. Is on a daily KCl supplement. - Hypomagnesaemia: Mg down to 1.6. Replaced, monitoring. Transaminitis: Mild AST, ALT elevation. May be chemotherapeutically related. No clear evidence of liver dysfunction. Steroid dependence: Increased her normal prednisone 3 milligrams up to 10 mg temporarily. - Will see what oncologys recommendations for this are going forward. Ongoing medical issues: - HTN, HLD, CAD, s/p CABG four-vessel: Continue metoprolol, isosorbide, Ranexa, atorvastatin, aspirin. - Sjogren's syndrome: Continue cevimeline. On magic mouthwash. - COPD: Per patient, covered with oral steroids as well as albuterol prn. - GERD: On protonix. - Prior lymphoma: In remission. - Cachexia: BMI 18, albumin 2.4. Is on boost. - Oral candidiasis: Monitoring. Code status: Full code. Diet: Regular. DVT prophy: Lovenox. PT/OT: Deferred. Disbo: Admit to medsurg. (2) Febrile neutropenia: (3) Non-small cell lung cancer (NSCLC): (4) Pancytopenia: (5) Anemia: (6) Thrombocytopenia: (7) Hypokalemia: (8) Hypomagnesemia: (9) Transaminitis: (10) Steroid dependence: (11) HTN (hypertension): (12) Hyperlipemia: (13) CAD, multiple vessel: (14) Sjogren's disease: (15) COPD (chronic obstructive pulmonary disease): (16) GERD (gastroesophageal reflux disease): (17) History of lymphoma: (18) Cachexia: (19) Oral candidiasis: Supervising Physician Co-Signing Physician Notes Resident Physician Supervision Note: I independently interviewed and examined the patient and verified the abraham history and physical, reviewed labs and image studies, discussed the case with the resident Dr. Hassan and agree with the findings and care plan. Subjective Found patient resting comfortably in her bed this morning. Overall, she says that she feels "pretty good". She denies any pains anywhere or any difficulty breathing. Her primary concern is that she can get a dose of her Hizentra immunoglobulin infusion today. She says she has been on the medication for about 3 years now and missed her weekly dose yesterday due to the admission. She also notes that she had a mild bloody nose that lasted throughout yesterday daytime and into the evening. She says it spontaneously stopped early this morning. She denies any known bleeding elsewhere. No other acute concerns. Review of Systems Review of Systems: Per HPI as above. Physical Exam Physical Exam: General Appearance: Awake, alert & oriented, comfortable in general but cachectic, NAD. CV: +S1S2 RRR, no murmur. Left mediport accessed. Pulm: Clear to auscultation throughout. On room air. Abdomen: +BS, soft, non-tender, non-distended. Extremities: No pedal edema or calf tenderness. Moving all extremities naturally and easily. Neuro: No gross neuro deficits. Results & Data Vital Signs (Past 12 Hours) Vital Signs Temp Pulse Resp BP Pulse Ox 10/02/18 11:30 36.6 C 80 18 123/75 96 10/02/18 07:44 20 10/02/18 07:33 36.8 C 96 10/02/18 07:28 92 H 155/87 H 10/02/18 03:00 37 C 87 20 149/82 H 92 Laboratory Results 10/02/18 10/02/18 10/02/18 Range/Units 06:11 06:11 06:11 WBC 1.51 L (4.8-10.8) K/uL RBC 2.63 L (4.2-5.4) M/uL Hgb 7.5 L (12.0-16.0) g/dL Hct 23.0 L (37-47) % MCV 87.5 (80-100) fL MCH 28.5 (25-34) pg MCHC 32.6 (32-36) g/dL RDW Std Deviation 69.3 H (36.4-46.3) fL RDW Coeff of Marlene 21.7 H (11.5-14.5) % Plt Count 26 L* (130-400) K/uL MPV 10.9 H (7.4-10.4) fL Immature Gran % (Auto) 0.7 % Neut % (Auto) 46.9 % Lymph % (Auto) 49.0 % [place] % (Auto) 2.0 % Eos % (Auto) 0.7 % Baso % (Auto) 0.7 % Immature Gran # (Auto) 0.01 (0.00-0.02) K/uL Neut # (Auto) 0.72 L* (1.4-6.5) K/uL Lymph # (Auto) 0.75 L (1.2-3.4) K/uL [place] # (Auto) 0.03 L (0.11-0.59) K/uL Eos # (Auto) 0.01 (0-0.5) K/uL Baso # (Auto) 0.01 (0-0.2) K/uL Platelet Estimate SIGNIFIC DECREASED (Normal) PT (9.0-12.0) Seconds INR (0.9-1.1) APTT (21.0-31.0) Seconds PTT Ratio Sodium 135 L (136-145) mmol/L Potassium 3.3 L (3.5-5.1) mmol/L Chloride 103 (98-107) mmol/L Carbon Dioxide 25 (21-32) mmol/L Anion Gap 7.0 (3-11) BUN 13 (7-18) mg/dl Creatinine 0.56 L (0.6-1.2) mg/dl Est Cr Clr Drug Dosing 56.1 ml/min Est GFR ( Amer) 106.5 Est GFR (Non-Af Amer) 91.9 BUN/Creatinine Ratio 23.0 H (10-20) Glucose 103 H (70-99) mg/dl Calcium 7.3 L (8.5-10.1) mg/dl Magnesium 1.6 L (1.8-2.4) mg/dl Procalcitonin (0-0.5) ng/ml Nasal Screen MRSA (PCR) (Negative) 10/01/18 10/01/18 10/01/18 Range/Units 14:05 11:12 11:12 WBC (4.8-10.8) K/uL RBC (4.2-5.4) M/uL Hgb (12.0-16.0) g/dL Hct (37-47) % MCV (80-100) fL MCH (25-34) pg MCHC (32-36) g/dL RDW Std Deviation (36.4-46.3) fL RDW Coeff of Marlene (11.5-14.5) % Plt Count (130-400) K/uL MPV (7.4-10.4) fL Immature Gran % (Auto) % Neut % (Auto) % Lymph % (Auto) % [place] % (Auto) % Eos % (Auto) % Baso % (Auto) % Immature Gran # (Auto) (0.00-0.02) K/uL Neut # (Auto) (1.4-6.5) K/uL Lymph # (Auto) (1.2-3.4) K/uL [place] # (Auto) (0.11-0.59) K/uL Eos # (Auto) (0-0.5) K/uL Baso # (Auto) (0-0.2) K/uL Platelet Estimate (Normal) PT 9.9 (9.0-12.0) Seconds INR 1.0 (0.9-1.1) APTT 24.5 (21.0-31.0) Seconds PTT Ratio 0.9 Sodium (136-145) mmol/L Potassium (3.5-5.1) mmol/L Chloride (98-107) mmol/L Carbon Dioxide (21-32) mmol/L Anion Gap (3-11) BUN (7-18) mg/dl Creatinine (0.6-1.2) mg/dl Est Cr Clr Drug Dosing ml/min Est GFR ( Amer) Est GFR (Non-Af Amer) BUN/Creatinine Ratio (10-20) Glucose (70-99) mg/dl Calcium (8.5-10.1) mg/dl Magnesium (1.8-2.4) mg/dl Procalcitonin 0.13 (0-0.5) ng/ml Nasal Screen MRSA (PCR) Negative (Negative) Medications Administered Current Inpatient Medications Acetaminophen (Tylenol) 650 mg PO Q4H PRN PRN Reason: Pain or Fever Stop: 10/31/18 13:37 Hydrocodone Bitart/Acetaminophen ([place] 5/325) 1 tab PO Q6H PRN PRN Reason: Pain Stop: 10/15/18 13:37 Albuterol (Proair Hfa) 2 puffs INH QID [facility] Stop: 10/31/18 14:29 Last Admin: 10/02/18 07:31 Dose: 2 puffs Documented by: Aspirin (Ecotrin Ectab) 81 mg PO QDL [facility] Stop: 11/01/18 11:29 Last Admin: 10/02/18 12:07 Dose: 81 mg Documented by: Azithromycin (Zithromax) 250 mg PO QAM [facility] Stop: 10/07/18 08:59 Last Admin: 10/02/18 09:47 Dose: 250 mg Documented by: Dexamethasone 3.75 mg/Nystatin 30 ml/Diphenhydramine HCl 300 mg/Sucrose 45 ml/Microcrystalline Cellulose 45 ml/ [employer]CODE IDENTIFIER 1 ea 0 mg PO Q4H PRN PRN Reason: MOUTH PAIN Stop: 10/31/18 13:37 Last Admin: 10/02/18 09:48 Dose: 10 ml Documented by: Diphenoxylate HCl/Atropine (Lomotil) 2 tab PO Q4H PRN PRN Reason: Diarrhea Stop: 10/31/18 13:37 Enoxaparin Sodium (Lovenox) 40 mg SQ Q24H [facility] Stop: 10/31/18 14:59 Last Admin: 10/01/18 16:20 Dose: 40 mg Documented by: Guaifenesin/Codeine Phosphate (Robitussin-Ac Sugar Free) 10 ml PO Q6H PRN PRN Reason: Cough Stop: 10/31/18 13:37 Last Admin: 10/01/18 22:19 Dose: 10 ml Documented by: Heparin Sodium (Porcine) (Heparin Sod 100 Unit/Ml Flush) 5 ml FLUSH PRN [facility] Stop: 10/31/18 14:14 Last Admin: 10/02/18 07:35 Dose: 5 ml Documented by: Piperacillin Sod/Tazobactam (Sod 3.375 gm/ Dextrose) 115 mls @ 28.75 mls/hr IV Q8H [facility]; Protocol Stop: 10/08/18 19:59 Last Admin: 10/02/18 12:13 Dose: 28.8 mls/hr Documented by: Promethazine HCl 12.5 mg/ (Sodium Chloride) 50.5 mls @ 202 mls/hr IV Q6H PRN PRN Reason: Nausea And Vomiting Stop: 10/31/18 13:37 Potassium Chloride (K Melchor / Wtr) 10 meq in 100 mls @ 100 mls/hr IV Q1H [facility] Stop: 10/02/18 13:29 Last Admin: 10/02/18 12:07 Dose: 100 mls/hr Documented by: Isosorbide Mononitrate (Imdur Extended Rel) 60 mg PO QAM [facility] Stop: 11/01/18 08:59 Last Admin: 10/02/18 07:30 Dose: 60 mg Documented by: Levalbuterol HCl (Xopenex 0.63 Mg/3 Ml Neb) 0.63 mg NEB Q6R PRN PRN Reason: SOB or wheeze Stop: 11/01/18 01:59 Metoprolol Tartrate (Lopressor) 75 mg PO BID [facility] Stop: 10/31/18 20:59 Last Admin: 10/02/18 07:31 Dose: 75 mg Documented by: Miscellaneous (Order Awaiting Action) 1 ea N/A QS [facility] Stop: 10/31/18 15:59 Last Admin: 10/02/18 11:03 Dose: Not Given Documented by: Miscellaneous (Or Miscellaneous Med) 1 ea XX ONE [facility] Stop: 11/01/18 10:40 Miscellaneous (Order Awaiting Action) 1 ea N/A QS [facility] Stop: 11/01/18 15:59 Miscellaneous Information (Consult) 1 ea N/A UD PRN PRN Reason: Consult Stop: 10/31/18 13:37 Multivitamins (Multivitamin Tab) 1 tab PO DAILY@1700 [facility] Stop: 10/31/18 16:59 Last Admin: 10/01/18 17:45 Dose: 1 tab Documented by: Multivitamins/Minerals (Caltrate Plus) 1 tab PO BIDM [facility] Stop: 10/31/18 16:59 Last Admin: 10/02/18 07:30 Dose: 1 tab Documented by: Nitroglycerin (Nitrostat) 0.4 mg SL UD PRN PRN Reason: Chest Pain Stop: 10/31/18 13:37 Ondansetron HCl (Zofran) 4 mg IV Q6H PRN PRN Reason: Nausea Stop: 10/31/18 13:37 Last Admin: 10/02/18 09:47 Dose: 4 mg Documented by: Ondansetron HCl (Zofran Odt) 8 mg PO QID PRN PRN Reason: Nausea Stop: 10/31/18 13:37 Ondansetron HCl (Zofran) 4 mg PO TID [facility] Stop: 10/31/18 14:29 Last Admin: 10/02/18 07:32 Dose: 4 mg Documented by: Oxymetazoline HCl (Afrin 0.05%) 1 sprays NA Q12H PRN PRN Reason: Nosebleed Stop: 11/01/18 01:31 Last Admin: 10/02/18 01:52 Dose: 1 sprays Documented by: Pantoprazole Sodium (Protonix) 40 mg PO BID [facility] Stop: 10/31/18 20:59 Last Admin: 10/02/18 07:31 Dose: 40 mg Documented by: Polyethylene Glycol (Miralax Powder Packet) 17 gm PO ONCE PRN PRN Reason: Constipation Stop: 10/31/18 18:11 Potassium Chloride (Klor-Con M10) 10 meq PO TIDM [facility] Stop: 10/31/18 16:59 Last Admin: 10/02/18 12:07 Dose: 10 meq Documented by: Prednisone (Prednisone) 10 mg PO QAM [facility] Stop: 11/01/18 08:59 Last Admin: 10/02/18 07:31 Dose: 10 mg Documented by: Prochlorperazine (Compazine) 10 mg PO Q6H PRN PRN Reason: Nausea Stop: 10/31/18 13:37 Raloxifene HCl (Evista) 60 mg PO DAILY@1700 [facility] Stop: 10/31/18 16:59 Last Admin: 10/01/18 17:44 Dose: 60 mg Documented by: Ranolazine (Ranexa) 500 mg PO BID [facility] Stop: 10/31/18 20:59 Last Admin: 10/02/18 07:31 Dose: 500 mg Documented by: Resident Activity Tracking Resident Involvement: Resident Care Provided Care Provided: Adult Hospital Medicine (1) Anemia Anemia type: unspecified type Qualified Code(s): D64.9 - Anemia, unspecified (2) Non-small cell lung cancer (NSCLC) Laterality: right Qualified Code(s): C34.91 - Malignant neoplasm of unspecified part of right bronchus or lung (3) COPD (chronic obstructive pulmonary disease) COPD type: COPD with acute lower respiratory infection Qualified Code(s): J44.0 - Chronic obstructive pulmonary disease with acute lower respiratory infection (4) Bilateral pneumonia Lung location: lower lobe of lung Pneumonia type: due to unspecified organism Qualified Code(s): J18.1 - Lobar pneumonia, unspecified organism
[2018-10-02] MEDS ORDERED: IMMUNE GLOBULIN SC SCH (14:30)
[2018-10-02] MEDS: ENOXAPARIN INJ 40 MG/0.4 ML SYR SQ SCH (14:44)
[2018-10-02] MEDS: RALOXIFENE HCL 60 MG TAB PO SCH (16:32)
[2018-10-02] MEDS: MULTIVITAMIN TAB PO SCH (16:33)
[2018-10-02] MEDS: GUAIFENESIN/CODEINE 200MG/20MG 10ML UDC PO PRN (19:50)
[2018-10-03] MEDS: PIPERACILLIN/TAZOBACTAM 3.375 GM in DEXTROSE 5% 100 ML IV SCH ×3 (03:08→23:59)
[2018-10-03 07:17] LABS: Basophils # (auto) 0.01 K/uL (0-0.2); Hematocrit (blood only) 20.3 % (37-47); Hemoglobin 6.7 g/dL (12.0-16.0); Immature Granulocytes # (auto) 0.01 K/uL (0.00-0.02); Lymphocytes # (auto) 0.61 K/uL (1.2-3.4); Lymphocytes % (auto) 62.2 %; Mean Corpuscular Volume 88.3 fL (80-100); Monocytes # (auto) 0.01 K/uL (0.11-0.59); Neutrophils # (auto) 0.34 K/uL (1.4-6.5); Neutrophils % (auto) 34.8 %; Platelet Count 30 K/uL (130-400); RDW Coefficient of Variation 21.8 % (11.5-14.5); RDW Standard Deviation 70.2 fL (36.4-46.3); White Blood Count 0.98 K/uL (4.8-10.8)
[2018-10-03 07:19] LABS: Anisocytosis Present; Giant Platelets 2+; Platelet Estimate SIGNIFIC DECREASED (Normal)
[2018-10-03 07:21] LABS: BUN Creatinine Ratio 24.1 (10-20); Calcium 7.6 mg/dl (8.5-10.1); Creatinine Clr Calc Pharmacy 57.1 ml/min; Est GFR (African American) 107.1; Est GFR (Non-African American) 92.4; Magnesium 1.8 mg/dl (1.8-2.4); Potassium 4.1 mmol/L (3.5-5.1)
--- NOTE | 2018-10-03 07:26 | Infectious Disease Consult ---
Date of Consultation October 03, 2018 Assessment & Plan (1) Febrile neutropenia: continue abx, follow blood cultures, ANC > 500, continue to follow. if able check sputum culture, will check legionella antigen as well. History of Present Illness Attending Physician: Brea Wiggins MD pt admitted with fever, persistent cough s/p chemo. temp in er 38.5, now afebrile. still with dry cough, intermittent, unchanged. ct dated 09/25 abd/pelvis did show pulm nodules at b/l bases c/w infection, less likely to be metastatic. has h/o lung ca on chemo. wbc today 1.5, ANC 750, on zoysn for suspected HAP, tolerating well. currently afebrile. blood cultures negative to date, no sputum culture but cough is nonproductive. UA negative, CXR in ER - slight increase in basilar infiltrate which could reflect a developing pna. 09/28 urine culture grew E. faecium, chavez sensitive. creat 0.5. On my exam she states she is feeling somewhat better, denies f/c. cough unchanged, dry, no hemoptysis, no pleurtic cp, no sob, no wheeze. no abd pain, no n/v/d, no gu symptoms, no rash, no pain at port site, port working well. tolerating abx. Allergies Allergy/AdvReac Type Severity Reaction Status Date / Time No Known Allergies Allergy Verified 10/01/18 10:27 Home Medications Home Medications Medication Instructions Recorded Confirmed Type albuterol sulfate [ProAir HFA] 2 puff INHALATION QID 06/21/18 10/01/18 History aspirin [Aspir-81] 81 mg PO QDL 06/21/18 10/01/18 History cevimeline 30 mg PO TIDM 06/21/18 10/01/18 History epinephrine [EpiPen] 0.3 mg IM Q3H PRN 06/21/18 10/01/18 History isosorbide mononitrate 60 mg PO QAM 06/21/18 10/01/18 History magnesium 500 mg PO QAM 06/21/18 10/01/18 History metoprolol tartrate 75 mg PO BID 06/21/18 10/01/18 History multivitamin 1 tab PO QPM 06/21/18 10/01/18 History nitroglycerin [Nitrostat] 0.4 mg SUBLINGUAL UD PRN 06/21/18 10/01/18 History ondansetron 8 mg PO QID PRN 06/21/18 10/01/18 History potassium chloride 10 meq PO TIDM 06/21/18 10/01/18 History raloxifene 60 mg PO QPM 06/21/18 10/01/18 History ranolazine [Ranexa] 500 mg PO BID 06/21/18 10/01/18 History simvastatin 40 mg PO HS 06/21/18 10/01/18 History Calcium 600 + D(3) 1 cap PO BIDM 09/06/18 10/01/18 History Hizentra 8 g SUBCUT WK 09/06/18 10/01/18 History Plexus-Probio 5 1 tab PO PM 09/23/18 10/01/18 History Resveratrol Plus 300mg 300 mg PO HS 09/23/18 10/01/18 History bevacizumab [Avastin] 0 mg IV UD 09/23/18 10/01/18 History carboplatin 0 mg IV UD 09/23/18 10/01/18 History dexamethasone 4 mg PO UD 09/23/18 10/01/18 History diphenoxylate-atropine 1 - 2 tab PO Q4H PRN 09/23/18 10/01/18 History hydrocodone-acetaminophen 1 tab PO Q6H PRN 09/23/18 10/01/18 History paclitaxel 0 mg IV UD 09/23/18 10/01/18 History pantoprazole 40 mg PO BID 09/23/18 10/01/18 History prednisone 10 mg PO QAM 09/23/18 10/01/18 History prochlorperazine maleate 10 mg PO Q6H PRN 09/23/18 10/01/18 History benzonatate 100 mg PO UD PRN 09/25/18 10/01/18 History Patient History Medical History Full cardiopulmonary resuscitation status (Acute) Hypomagnesemia Immunosuppression Steroid dependence COPD exacerbation (Acute) Pneumonia (Acute) Acute respiratory failure with hypoxia (Acute) Sjogren's disease (Chronic) Non-small cell lung cancer (NSCLC) (Acute) Stable angina Lung cancer, upper lobe (Inactive) CAD (coronary artery disease), [place] coronary artery With stable angina Decreased diffusion capacity of lung GERD (gastroesophageal reflux disease) DIET CONTROLLED History of lung cancer DX 1 YEAR AGO. 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 Surgical History Coronary artery bypass grafts x 4 (Chronic 06/13/12) History of arthroscopy RIGHT KNEE MENISCUS History of cholecystectomy History of colonoscopy History of coronary artery bypass graft [place] [facility] [place] History of hysterectomy History of surgical removal of meniscus of knee Family History Unknown Heart disease Other Family history non-contributory Social History Preferred Language: Czech Communication Ability: Effective Beliefs That Will Affect Care: None marital status: Current Living Situation: Spouse and Family Current Living Situation Comment: and son current occupational status: retired 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 Other Information That Helps Us Care for You: No Feels Safe at Home: Yes Safety Concerns: Feels Safe At This Time Smoking Status: Never smoker Second Hand Exposure: No Hx Alcohol Use: No Hx Substance Use: No Review of Systems Review of Systems: All systems reviewed & are unremarkable except as noted in HPI & below Physical Exam Eyes: PERRL, conjunctivae normal, anicteric sclerae ENMT: external ear and nose normal, oropharynx normal Neck: normal visual inspection Respiratory: normal respiratory effort, lungs clear to auscultation Auscultation: + diminished lung sounds Cardiovascular: RRR, no murmur, no edema Gastrointestinal (Abdomen): normal bowel sounds, soft, nontender, no hepatos plenomegaly Musculoskeletal: no cyanosis or clubbing, extremities motor strength 5/5 Skin: no rashes, warm and dry left chest wall port dressing c/d/i, no surrounding warmth, erythema, tenderness Psychiatric: A+Ox3, euthymic affect Results & Data Vital Signs (Past 12 Hours) Vital Signs Temp Pulse Resp BP Pulse Ox 10/03/18 03:11 36.6 C 79 18 136/69 95 10/02/18 23:00 36.5 C 80 20 144/73 H 97
[2018-10-03] MEDS: CALCIUM 600MG + VIT D 400 IU TAB PO SCH ×2 (07:37→16:07)
[2018-10-03] MEDS: METOPROLOL TARTRATE 25 MG TAB PO SCH ×2 (07:37→20:34)
[2018-10-03] MEDS: ALBUTEROL HFA INHALER 8.5 GM INH SCH ×4 (07:37→20:34)
[2018-10-03] MEDS: ISOSORBIDE MONO EXTENDED REL 60 MG TABCR PO SCH (07:37)
[2018-10-03] MEDS: predniSONE 10 MG TABLET PO SCH (07:37)
[2018-10-03] MEDS: POTASSIUM CHLORIDE 10 MEQ TABCR PO SCH ×3 (07:37→16:08)
[2018-10-03] MEDS: ONDANSETRON 4 MG TAB PO SCH ×3 (07:38→20:33)
[2018-10-03] MEDS: RANOLAZINE 500 MG ER TAB PO SCH ×2 (07:38→20:33)
[2018-10-03] MEDS: HEPARIN 100 UNIT/ML 5ML FLUSH FLUSH SCH (07:38)
[2018-10-03] MEDS: AZITHROMYCIN 250 MG/6.25 ML UDP PO SCH (07:38)
[2018-10-03] MEDS: PANTOprazole 40 MG TAB PO SCH ×2 (07:38→20:34)
[2018-10-03] MEDS: DEXAMETHASONE CONC 3.75 MG, NYSTATIN 30 ML, DiphenhydrAMINE Syrup 300 MG, ORA-SWEET SYR... PO PRN ×2 (07:39→11:59)
[2018-10-03] MEDS: DIPHENOXYLATE/ATROPINE 2.5/0.025MG TAB PO PRN (08:53)
[2018-10-03] MEDS: GUAIFENESIN/CODEINE 200MG/20MG 10ML UDC PO PRN (09:33)
--- NOTE | 2018-10-03 11:25 | XRay Report ---
XR chest 2V routine HISTORY: 73 years-old Female eval for infiltrate acute shortness of breath COMPARISON: Chest radiograph 10/01/2018, CT abdomen and pelvis 09/25/2018, PET CT 08/02/2018 TECHNIQUE: PA and lateral views of the chest FINDINGS: Cardiac silhouette is mildly enlarged. Prior median sternotomy. Calcification of the thoracic aortic arch. Stable positioning of the left subclavian Egaejp-u-Pcek catheter. Spiculated mass of the right upper lobe redemonstrated. Bilateral mid and lower lung zone reticular nodular opacities redemonstrat ed. Mild right hemidiaphragmatic elevation. Subsegmental bibasilar consolidation with unchanged blunt ing of the costophrenic angles suggest probable atelectasis. There is no pneumothorax, large pleural effusion or overt pulmonary edema. Degenerative changes of the shoulders and spine. Surgical clips pr oject over the upper abdomen. IMPRESSION: 1. Spiculated mass of the right upper lobe redemonstrated. 2. Bilateral mid and lower lung zone predominant reticular nodular opacities are redemonstrated sugge stive of a probable infectious or inflammatory pneumonitis. The above report was generated using voice recognition software. It may contain grammatical, syntax o r spelling errors. Electronically signed by: Selvin Lundberg M.D. 10/03/2018 11:24 AM
[2018-10-03] MEDS: ASPIRIN 81 MG ECTAB PO SCH (11:58)
--- NOTE | 2018-10-03 12:54 | Family Medicine Progress Note ---
Date of Service October 03, 2018 Assessment & Plan (1) Bilateral pneumonia: 73-year-old female was admitted on 01 October 2018 for weakness, non- productive cough, and fever on chemotherapy. Pneumonia, febrile neutropenia: Last discharge on Ma on levofloxacin for PNA. Febrile on arrival. Admit pCXR noted possible bibasilar opacities. 07BCx sent. 07Jun started on Zosyn and azithromycin. See ID notes, ordered sputum culture and legionella. 09Jun repeat CXR suggestive of atelectasis. Non-small cell lung cancer: On chemotherapy since last 16May discharge, last round 05Jun. Daily nausea, controlled with Zofran prn. On weekly Hizentra. - Consulted her oncologist, Dr. De La O, for further assistance including post- chemo pancytopenia as below. - Spoke with Dr. De La O on the phone. Recommended transfusion 2 units PRBCs and 1 unit platelets. Ordered. Pancytopenia: S/p chemotherapy. On neutropenia precautions. - Admit ANC 1358, today ANC 341. Presently afebrile and generally asymptomatic. - Anemia: Recent Hb 9s. Admit Hb 9.8, down to 6.7. Will transfuse 2 units PRBCs. - Thrombocytopenia: Platelets currently 30. No repeat epistaxis. Will transfuse 1 unit. Electrolyte abnormalities: - Hypocalcemia: Ca down to 7.6, though corrects to 8.9 for hypoalbuminemia. - Hypokalemia: K as low as 3.3. Replaced, monitoring. Is on a daily KCl supplement. - Hypomagnesaemia: Mg down to 1.6. Replaced, monitoring. Transaminitis: Mild AST, ALT elevation. May be chemotherapeutically related. No clear evidence of liver dysfunction. Steroid dependence: Increased her normal prednisone 3 milligrams up to 10 mg temporarily. - Will see what oncologys recommendations for this are going forward. Ongoing medical issues: - HTN, HLD, CAD, s/p CABG four-vessel: Continue metoprolol, isosorbide, Ranexa, atorvastatin, aspirin. - Sjogren's syndrome: Continue cevimeline. - COPD: Per patient, covered with oral steroids as well as albuterol prn. - GERD: On protonix. - Prior lymphoma: In remission. - Cachexia: BMI 18, albumin 2.4. Is on boost. - Oral candidiasis: Monitoring. Code status: Full code. Diet: Regular. DVT prophy: Lovenox. PT/OT: Deferred. Disbo: Admit to medsurg. (2) Febrile neutropenia: (3) Non-small cell lung cancer (NSCLC): (4) Pancytopenia: (5) Anemia: (6) Thrombocytopenia: (7) Hypokalemia: (8) Hypomagnesemia: (9) Transaminitis: (10) Steroid dependence: (11) HTN (hypertension): (12) Hyperlipemia: (13) CAD, multiple vessel: (14) Sjogren's disease: (15) COPD (chronic obstructive pulmonary disease): (16) GERD (gastroesophageal reflux disease): (17) History of lymphoma: (18) Cachexia: (19) Oral candidiasis: Supervising Physician Co-Signing Physician Notes Resident Physician Supervision Note: I independently interviewed and examined the patient and verified the abraham history and physical, reviewed labs and image studies, discussed the case with the resident Dr. Hassan and agree with the findings and care plan. Subjective Again found patient resting comfortably in bed. She has no particular complaints this morning. She says that her nosebleed has not returned. She continues to have a rare dry cough. She denies any chest pain, shortness of breath, generalized pain, or any other acute concerns. She does ask questions about her overall blood counts and whether she needs any supplemental blood/platelets. Review of Systems Review of Systems: Per HPI as above. Physical Exam Physical Exam: General Appearance: Awake, alert & oriented, comfortable in general but cachectic, NAD. CV: +S1S2 RRR, no murmur. Left mediport accessed. Pulm: Clear to auscultation throughout. On room air. No present cough. Abdomen: +BS, soft, non-tender, non-distended. Extremities: No pedal edema or calf tenderness. Moving all extremities naturally and easily. Neuro: No gross neuro deficits. Results & Data Vital Signs (Past 12 Hours) Vital Signs Temp Pulse Resp BP Pulse Ox 10/03/18 11:10 36.7 C 90 18 145/86 H 95 10/03/18 07:32 37.0 C 77 18 148/78 H 95 10/03/18 03:11 36.6 C 79 18 136/69 95 Laboratory Results 10/03/18 10/03/18 10/02/18 Range/Units 05:45 05:45 06:11 WBC 0.98 L* (4.8-10.8) K/uL RBC 2.30 L (4.2-5.4) M/uL Hgb 6.7 L* (12.0-16.0) g/dL Hct 20.3 L* (37-47) % MCV 88.3 (80-100) fL MCH 29.1 (25-34) pg MCHC 33.0 (32-36) g/dL RDW Std Deviation 70.2 H (36.4-46.3) fL RDW Coeff of Marlene 21.8 H (11.5-14.5) % Plt Count 30 L (130-400) K/uL Immature Gran % (Auto) 1.0 % Neut % (Auto) 34.8 % Lymph % (Auto) 62.2 % Anderson % (Auto) 1.0 % Eos % (Auto) 0.0 % Baso % (Auto) 1.0 % Immature Gran # (Auto) 0.01 (0.00-0.02) K/uL Neut # (Auto) 0.34 L* 0.72 L* (1.4-6.5) K/uL Lymph # (Auto) 0.61 L (1.2-3.4) K/uL Anderson # (Auto) 0.01 L (0.11-0.59) K/uL Eos # (Auto) 0.00 (0-0.5) K/uL Baso # (Auto) 0.01 (0-0.2) K/uL Platelet Estimate SIGNIFIC DECREASED (Normal) Giant Platelets 2+ Anisocytosis Present Sodium 138 (136-145) mmol/L Potassium 4.1 D (3.5-5.1) mmol/L Chloride 106 (98-107) mmol/L Carbon Dioxide 25 (21-32) mmol/L Anion Gap 7.0 (3-11) BUN 13 (7-18) mg/dl Creatinine 0.55 L (0.6-1.2) mg/dl Est Cr Clr Drug Dosing 57.1 ml/min Est GFR ( Amer) 107.1 Est GFR (Non-Af Amer) 92.4 BUN/Creatinine Ratio 24.1 H (10-20) Glucose 107 H (70-99) mg/dl Calcium 7.6 L (8.5-10.1) mg/dl Magnesium 1.8 (1.8-2.4) mg/dl Medications Administered Current Inpatient Medications Acetaminophen (Tylenol) 650 mg PO Q4H PRN PRN Reason: Pain or Fever Stop: 10/31/18 13:37 Hydrocodone Bitart/Acetaminophen ([place] 5/325) 1 tab PO Q6H PRN PRN Reason: Pain Stop: 10/15/18 13:37 Albuterol (Proair Hfa) 2 puffs INH QID [facility] Stop: 10/31/18 14:29 Last Admin: 10/03/18 11:59 Dose: 2 puffs Documented by: Aspirin (Ecotrin Ectab) 81 mg PO QDL [facility] Stop: 11/01/18 11:29 Last Admin: 10/03/18 11:58 Dose: 81 mg Documented by: Azithromycin (Zithromax) 250 mg PO QAM [facility] Stop: 10/07/18 08:59 Last Admin: 10/03/18 07:38 Dose: 250 mg Documented by: Dexamethasone 3.75 mg/Nystatin 30 ml/Diphenhydramine HCl 300 mg/Sucrose 45 ml/Microcrystalline Cellulose 45 ml/ BARCODE IDENTIFIER 1 ea 0 mg PO Q4H PRN PRN Reason: MOUTH PAIN Stop: 10/31/18 13:37 Last Admin: 10/03/18 11:59 Dose: 10 ml Documented by: Diphenoxylate HCl/Atropine (Lomotil) 2 tab PO Q4H PRN PRN Reason: Diarrhea Stop: 10/31/18 13:37 Last Admin: 10/03/18 08:53 Dose: 2 tab Documented by: Enoxaparin Sodium (Lovenox) 40 mg SQ Q24H [facility] Stop: 10/31/18 14:59 Last Admin: 10/02/18 14:44 Dose: Not Given Documented by: Guaifenesin/Codeine Phosphate (Robitussin-Ac Sugar Free) 10 ml PO Q6H PRN PRN Reason: Cough Stop: 10/31/18 13:37 Last Admin: 10/03/18 09:33 Dose: 10 ml Documented by: Heparin Sodium (Porcine) (Heparin Sod 100 Unit/Ml Flush) 5 ml FLUSH PRN [facility] Stop: 10/31/18 14:14 Last Admin: 10/03/18 07:38 Dose: 5 ml Documented by: Piperacillin Sod/Tazobactam (Sod 3.375 gm/ Dextrose) 115 mls @ 28.75 mls/hr IV Q8H [facility]; Protocol Stop: 10/08/18 19:59 Last Admin: 10/03/18 11:58 Dose: 28.8 mls/hr Documented by: Promethazine HCl 12.5 mg/ (Sodium Chloride) 50.5 mls @ 202 mls/hr IV Q6H PRN PRN Reason: Nausea And Vomiting Stop: 10/31/18 13:37 Isosorbide Mononitrate (Imdur Extended Rel) 60 mg PO QAM [facility] Stop: 11/01/18 08:59 Last Admin: 10/03/18 07:37 Dose: 60 mg Documented by: Levalbuterol HCl (Xopenex 0.63 Mg/3 Ml Neb) 0.63 mg NEB Q6R PRN PRN Reason: SOB or wheeze Stop: 11/01/18 01:59 Metoprolol Tartrate (Lopressor) 75 mg PO BID [facility] Stop: 10/31/18 20:59 Last Admin: 10/03/18 07:37 Dose: 75 mg Documented by: Miscellaneous (Order Awaiting Action) 1 ea N/A QS [facility] Stop: 10/31/18 15:59 Last Admin: 10/03/18 07:44 Dose: Not Given Documented by: Miscellaneous Information (Consult) 1 ea N/A UD PRN PRN Reason: Consult Stop: 10/31/18 13:37 Multivitamins (Multivitamin Tab) 1 tab PO DAILY@1700 [facility] Stop: 10/31/18 16:59 Last Admin: 10/02/18 16:33 Dose: 1 tab Documented by: Multivitamins/Minerals (Caltrate Plus) 1 tab PO BIDM [facility] Stop: 10/31/18 16:59 Last Admin: 10/03/18 07:37 Dose: 1 tab Documented by: Nitroglycerin (Nitrostat) 0.4 mg SL UD PRN PRN Reason: Chest Pain Stop: 10/31/18 13:37 Ondansetron HCl (Zofran) 4 mg IV Q6H PRN PRN Reason: Nausea Stop: 10/31/18 13:37 Last Admin: 10/02/18 09:47 Dose: 4 mg Documented by: Ondansetron HCl (Zofran Odt) 8 mg PO QID PRN PRN Reason: Nausea Stop: 10/31/18 13:37 Ondansetron HCl (Zofran) 4 mg PO TID [facility] Stop: 10/31/18 14:29 Last Admin: 10/03/18 07:38 Dose: 4 mg Documented by: Oxymetazoline HCl (Afrin 0.05%) 1 sprays NA Q12H PRN PRN Reason: Nosebleed Stop: 11/01/18 01:31 Last Admin: 10/02/18 01:52 Dose: 1 sprays Documented by: Pantoprazole Sodium (Protonix) 40 mg PO BID [facility] Stop: 10/31/18 20:59 Last Admin: 10/03/18 07:38 Dose: 40 mg Documented by: Polyethylene Glycol (Miralax Powder Packet) 17 gm PO ONCE PRN PRN Reason: Constipation Stop: 10/31/18 18:11 Potassium Chloride (Klor-Con M10) 10 meq PO TIDM [facility] Stop: 10/31/18 16:59 Last Admin: 10/03/18 11:58 Dose: 10 meq Documented by: Prednisone (Prednisone) 10 mg PO QAM [facility] Stop: 11/01/18 08:59 Last Admin: 10/03/18 07:37 Dose: 10 mg Documented by: Prochlorperazine (Compazine) 10 mg PO Q6H PRN PRN Reason: Nausea Stop: 10/31/18 13:37 Raloxifene HCl (Evista) 60 mg PO DAILY@1700 [facility] Stop: 10/31/18 16:59 Last Admin: 10/02/18 16:32 Dose: 60 mg Documented by: Ranolazine (Ranexa) 500 mg PO BID [facility] Stop: 10/31/18 20:59 Last Admin: 10/03/18 07:38 Dose: 500 mg Documented by: Resident Activity Tracking Resident Involvement: Resident Care Provided Care Provided: Adult Hospital Medicine (1) Anemia Anemia type: unspecified type Qualified Code(s): D64.9 - Anemia, unspecified (2) Non-small cell lung cancer (NSCLC) Laterality: right Qualified Code(s): C34.91 - Malignant neoplasm of unspecified part of right bronchus or lung (3) COPD (chronic obstructive pulmonary disease) COPD type: COPD with acute lower respiratory infection Qualified Code(s): J44.0 - Chronic obstructive pulmonary disease with acute lower respiratory infection (4) Bilateral pneumonia Lung location: lower lobe of lung Pneumonia type: due to unspecified organism Qualified Code(s): J18.1 - Lobar pneumonia, unspecified organism
[2018-10-03] MEDS: ENOXAPARIN INJ 40 MG/0.4 ML SYR SQ SCH (14:01)
[2018-10-03] MEDS: MULTIVITAMIN TAB PO SCH (16:07)
[2018-10-03] MEDS: RALOXIFENE HCL 60 MG TAB PO SCH (16:08)
[2018-10-03] MEDS ORDERED: Nursing to Pharmacy Communication ONE (20:42)
[2018-10-04] MEDS: OXYMETAZOLINE 0.05% 30 ML BTL PRN (03:50)
[2018-10-04] MEDS: HEPARIN 100 UNIT/ML 5ML FLUSH FLUSH SCH (05:39)
[2018-10-04 07:02] LABS: Hematocrit (blood only) 31.7 % (37-47); Hemoglobin 10.8 g/dL (12.0-16.0); Mean Corpuscular Hgb Conc 34.1 g/dL (32-36); Mean Corpuscular Volume 84.5 fL (80-100); Mean Platelet Volume 10.3 fL (7.4-10.4); Platelet Count 39 K/uL (130-400); RDW Standard Deviation 63.5 fL (36.4-46.3); Red Blood Count 3.75 M/uL (4.2-5.4); White Blood Count 0.98 K/uL (4.8-10.8)
[2018-10-04 07:13] LABS: Albumin Level 2.3 gm/dl (3.4-5.0); BUN Creatinine Ratio 27.8 (10-20); Calcium 8.1 mg/dl (8.5-10.1); Creatinine Clr Calc Pharmacy 50.6 ml/min; Est GFR (African American) 102.4; Est GFR (Non-African American) 88.4; Magnesium 1.7 mg/dl (1.8-2.4); Potassium 3.8 mmol/L (3.5-5.1)
[2018-10-04 07:15] LABS: Albumin Globulin Ratio 0.7 (0.9-2); Bilirubin,Total 1.2 mg/dl (0.2-1); Globulin 3.2 gm/dl (2.5-4.0); Total Protein 5.5 gm/dl (6.4-8.2)
[2018-10-04 07:25] LABS: Basophils # (auto) 0.01 K/uL (0-0.2); Eosinophils # (auto) 0.01 K/uL (0-0.5); Immature Granulocytes # (auto) 0.01 K/uL (0.00-0.02); Lymphocytes # (auto) 0.69 K/uL (1.2-3.4); Lymphocytes % (auto) 70.4 %; Monocytes # (auto) 0.02 K/uL (0.11-0.59); Neutrophils # (auto) 0.24 K/uL (1.4-6.5); Neutrophils % (auto) 24.6 %
[2018-10-04 07:29] LABS: Echinocytes 1+; Giant Platelets 1+; Microcytosis Present
[2018-10-04] MEDS: POTASSIUM CHLORIDE 10 MEQ TABCR PO SCH ×3 (08:11→16:06)
[2018-10-04] MEDS: CALCIUM 600MG + VIT D 400 IU TAB PO SCH ×2 (08:11→16:05)
[2018-10-04] MEDS: ALBUTEROL HFA INHALER 8.5 GM INH SCH ×4 (08:12→20:09)
[2018-10-04] MEDS: predniSONE 10 MG TABLET PO SCH (08:12)
[2018-10-04] MEDS: ISOSORBIDE MONO EXTENDED REL 60 MG TABCR PO SCH (08:12)
[2018-10-04] MEDS: METOPROLOL TARTRATE 25 MG TAB PO SCH ×2 (08:12→20:08)
[2018-10-04] MEDS: PIPERACILLIN/TAZOBACTAM 3.375 GM in DEXTROSE 5% 100 ML IV SCH ×3 (08:12→23:22)
[2018-10-04] MEDS: AZITHROMYCIN 250 MG/6.25 ML UDP PO SCH (08:13)
[2018-10-04] MEDS: ONDANSETRON 4 MG TAB PO SCH ×3 (08:13→20:09)
[2018-10-04] MEDS: RANOLAZINE 500 MG ER TAB PO SCH ×2 (08:13→20:10)
[2018-10-04] MEDS: PANTOprazole 40 MG TAB PO SCH ×2 (08:13→20:11)
[2018-10-04] MEDS: DEXAMETHASONE CONC 3.75 MG, NYSTATIN 30 ML, DiphenhydrAMINE Syrup 300 MG, ORA-SWEET SYR... PO PRN ×2 (08:14→12:37)
--- NOTE | 2018-10-04 09:49 | Consultation Report ---
DATE OF CONSULTATION: 10/04/2018 MEDICAL ONCOLOGY CONSULTATION REASON FOR CONSULTATION: A 73-year-old female with metastatic non-small cell lung cancer admitted for neutropenia and pneumonia. HISTORY OF PRESENT ILLNESS: Naila is a pleasant 73-year-old patient well known to [facility], currently under my care with metastatic nonsmall cell lung cancer admitted on October 01 after presenting to our clinic for hydration. The patient had been discharged from [facility] after being treated for pneumonia back in early August. She was discharged on oral levofloxacin. She had resumed chemotherapy, actually received a dose last week of single agent paclitaxel and bevacizumab. Carboplatin was held because of persistent thrombocytopenia. Naila has off and on complained that she develops dehydration and set up a strategy to provide intermittent fluids during the week for her. Again, she is receiving weekly paclitaxel and carboplatin, which in patients is well tolerated. However, Naila has had a history of intolerance even when she was on oral Tarceva. Her intolerance and noncompliance lead to disease progression and thus decided to start a combination carboplatin, paclitaxel and bevacizumab. She obviously is very sensitive to even low doses of chemotherapy as she developed a profound neutropenia as well as a worsening thrombocytopenia prior to admission. She readily admits to intermittent fever with a T-max of 38.5. Chest x-ray done on admission shows persistent upper lobe spiculated mass, which was known from previous radiographs. There is some right basilar changes thought to be consistent with pneumonia. At this point, I really need to strongly consider the utility of continuing chemotherapy, perhaps at least with a significant dose reduction if ever. We will engage Naila in this regard once she is recovered and see her in the office. She reports no pain issues. She is feeling much better, received 2 units of packed RBCs over the weekend. PAST MEDICAL HISTORY: Again, significant for metastatic nonsmall cell lung cancer, steroid-dependent COPD, Sjogren's disease, coronary artery disease, gastroesophageal reflux disease, hyperlipidemia, hypertension, hypogammaglobulinemia, mitral regurgitation, Mycobacterium avium-intracellulare infection, osteoporosis and TIA. MEDICATIONS: Prior to admission include albuterol sulfate 2 puffs inhaled q.i.d., aspirin 81 mg p.o. daily, cevimeline 30 mg p.o. t.i.d., epinephrine 0.3 mg IM q. 3 hours p.r.n., isosorbide mononitrate 60 mg p.o. daily, magnesium 500 mg p.o. daily, metoprolol 75 mg p.o. b.i.d., multivitamin 1 tablet p.o. daily, nitroglycerin 0.4 mg sublingual p.r.n., Zofran 8 mg p.o. t.i.d. p.r.n., potassium chloride 10 mEq p.o. t.i.d., raloxifene 60 mg p.o. daily, Ranexa 500 mg p.o. b.i.d., simvastatin 40 mg p.o. at bedtime, calcium 600 plus D 1 capsule p.o. b.i.d., Hizentra 8 g subQ q. weekly, Plexus ProBio5 one tablet p.o. daily, Resveratrol plus 300 mg p.o. at bedtime. Her current chemotherapeutic regimen paclitaxel, carboplatin and bevacizumab weekly. Dexamethasone 4 mg p.o. daily, atropine 1-2 tablets p.o. q. 4 hours p.r.n. hydrocodone/acetaminophen 1 tablet p.o. q. 6 hours p.r.n., Protonix 40 mg p.o. b.i.d., prednisone 10 mg p.o. q.a.m., Compazine 10 mg p.o. q. 6 hours p.r.n., Tessalon Perles 100 mg p.o. t.i.d. p.r.n. ALLERGIES: No known drug allergies. SOCIAL HISTORY: She is retired, and lives with her . Nonsmoker, nondrinker. FAMILY HISTORY: Positive for coronary artery disease. REVIEW OF SYSTEMS: As per HPI, most notably for intermittent low-grade fever, occasional cough, asthenia, marginal appetite. SKIN: No rash or history of dermatoses. HEENT: Negative for headache, lightheadedness or dizziness. No acute visual or hearing deficits. No sinus symptoms, sore throat or dysphagia. LYMPH: No history of lymphoproliferative disease. CARDIAC: Positive history of coronary artery disease. No current angina or palpitations. PULMONARY: Recent diagnosis of pneumonia with possible recurrence, positive for COPD. She is not acutely short of breath, dyspneic or orthopneic. Positive for occasional cough. No hemoptysis reported. GASTROINTESTINAL: She denies abdominal pain. Has been struggling with intermittent constipation; however, no hematochezia or melena stools. GENITOURINARY: No hematuria, dysuria, or urinary incontinence. PSYCHIATRIC: Negative for anxiety, depression or psychoses. MUSCULOSKELETAL: Negative for arthralgias or myalgias. No muscle weakness. NEUROLOGIC: Negative for seizure, stroke, or migraine headache. HEMATOLOGIC: Pancytopenia, attributable to prior chemotherapy. PHYSICAL EXAMINATION: GENERAL: A very pleasant 73-year-old female, awake, alert and appropriate, in no acute distress at this time. VITAL SIGNS: Current temperature 36.6, pulse 76, respiratory rate 18, blood pressure 177/91. SKIN: Warm, dry, noncyanotic without petechia, rash or ecchymosis. Turgor is fair. HEENT: Head: Atraumatic, normocephalic. Eyes: PERRLA, EOMI. Sclerae nonicteric. No conjunctival injection. Nares patent without rhinorrhea or discharge. Throat clear. Tongue midline. Mucous membranes are moist. NECK: Supple without JVD or thyromegaly. LYMPH: No cervical, supraclavicular, axillary or inguinal palpable nodes. HEART: Regular rate and rhythm. No clicks, rubs, murmurs or gallops. LUNGS: Surprisingly clear on auscultation and I could not appreciate any rales or rhonchi. ABDOMEN: Soft, nontender, nondistended, without palpable hepatosplenomegaly. EXTREMITIES: No calf tenderness or swelling. Pulses and musculoskeletal strength are equal in all 4 quadrants. NEUROLOGICALLY: She is awake, alert and oriented x3. Cranial nerves II-XII are intact. LABORATORY DATA: WBC count 1000, hemoglobin 10.8, platelet count 39,000, absolute neutrophil count 240. Sodium 136, potassium 3.8, chloride 104, carbon dioxide 26, creatinine is 0.63, BUN 17, magnesium low at 1.7, bilirubin slightly elevated at 1.2, albumin decreased 2.3. IMPRESSION: 1. Bilateral mid and lower lung zone, predominant, reticulonodular opacities, thought to be infectious versus inflammatory pneumonitis. 2. Metastatic nonsmall cell lung cancer. 3. Asthenia/generalized weakness. 4. Neutropenic fever. 5. Pancytopenia, attributable to chemotherapy. 6. Hypoalbuminemia. PLAN: Naila is a pleasant 73-year-old female with a metastatic nonsmall cell lung cancer in the midst of receiving weekly carboplatin, paclitaxel and bevacizumab. She had been maintained on Tarceva at varying doses for a considerable period of time until she recently progressed on therapy. Naila has had multiple hospitalizations over the past several months, mainly because of respiratory issues as well as dehydration brought on from intolerance to chemotherapy. Despite dose reductions, she continues to be exquisitely sensitive from a myelosuppressive standpoint. Her last course administered on the , Naila did not receive carboplatin because of persistent thrombocytopenia. I would agree with the primary service, not clear if she actually cleared from her prior pneumonia in early August. I would also agree with infectious disease consultation. She received 2 units of packed RBCs over the weekend which has been quite helpful in getting her spirits and energy levels up. Additionally, I would add Neupogen 300 mcg subQ over the next couple of days to enhance neutrophil production. I had a brief discussion with Naila regarding moving forward with chemotherapy and I think we are going to take hiatus for at least the next couple of weeks and reconvene in the office to discuss where we go moving forward. Frankly, at this juncture, I think Naila may be better served to consider palliative options. Again, we will discuss further upon followup. I appreciate the assistance in the care of this very pleasant patient. Dr. Blackman will be taking over service this week, if there are any questions or concerns, otherwise I will try to stop up to visit Naila socially while in house.
--- NOTE | 2018-10-04 10:18 | Infectious Disease Progress Nt ---
Date of Service October 04, 2018 Assessment & Plan (1) Febrile neutropenia: continue abx, follow blood cultures, continue to follow. if able check sputum culture, will check legionella antigen as well. Subjective pt remains afebrile, tolerating zosyn. blood cultures negative, ANC decreased to 240 today. repeatcxr on 10/03 -pneumonitis. Results & Data Vital Signs (Past 12 Hours) Vital Signs Temp Pulse Pulse Resp BP BP Pulse Ox 10/04/18 07:00 36.6 C 76 18 177/91 H 97 10/04/18 04:00 36.3 C L 64 20 177/91 H 95 10/03/18 22:21 36.4 C L 67 18 161/78 H 94 Laboratory Results Microbiology 10/01/18 11:47 Blood Aerobic Blood Culture - Preliminary No growth in Aerobic bottle after 48 hours. 10/01/18 11:47 Blood Anaerobic Blood Culture - Preliminary No growth in Anaerobic bottle after 48 hours. 10/01/18 11:12 Blood Aerobic Blood Culture - Preliminary No growth in Aerobic bottle after 48 hours. 10/01/18 11:12 Blood Anaerobic Blood Culture - Preliminary No growth in Anaerobic bottle after 48 hours.
[2018-10-04] MEDS: FILGRASTIM 300 MCG/ML VIAL SQ SCH (11:11)
[2018-10-04] MEDS: ASPIRIN 81 MG ECTAB PO SCH (11:11)
[2018-10-04] MEDS: DIPHENOXYLATE/ATROPINE 2.5/0.025MG TAB PO PRN (11:11)
[2018-10-04] MEDS: HEPARIN 100 UNIT/ML 5ML FLUSH FLUSH PRN ×2 (12:36→20:07)
[2018-10-04] MEDS: ENOXAPARIN INJ 40 MG/0.4 ML SYR SQ SCH (14:24)
[2018-10-04] MEDS: RALOXIFENE HCL 60 MG TAB PO SCH (16:05)
[2018-10-04] MEDS: MULTIVITAMIN TAB PO SCH (16:06)
--- NOTE | 2018-10-04 19:06 | Family Medicine Progress Note ---
Date of Service October 04, 2018 Assessment & Plan (1) Bilateral pneumonia: 73-year-old female was admitted on 01 October 2018 for weakness, non- productive cough, and fever on chemotherapy. Pneumonia, febrile neutropenia - Last discharge on 06Ma on levofloxacin for PNA. Febrile on arrival. Admit pCXR noted possible bibasilar opacities. 07BCx sent. - 07Jun started on Zosyn and azithromycin, continue - ID following, ordered sputum culture and legionella. - Dc planning tomorrow if continues without fever, transition to PO abx at discharge Non-small cell lung cancer - On chemotherapy since last 16May discharge, last round 05Jun. Daily nausea, controlled with Zofran prn. On weekly Hizentra. - Oncology following Dr. De La O, plan is to follow in the outpatient, may need to discontinue current chemo course Pancytopenia, S/p chemotherapy. On neutropenia precautions. -Nuepogen, blood and PLT transfusion administered Electrolyte abnormalities - Hypocalcemia: Ca down to 7.6, though corrects to 8.9 for hypoalbuminemia. - Hypokalemia: K as low as 3.3. Replaced, monitoring. Is on a daily KCl supplement. - Hypomagnesaemia: Mg down to 1.6. Replaced, monitoring. Transaminitis - Mild AST, ALT elevation. May be chemotherapeutically related. No clear evidence of liver dysfunction. Steroid dependence - Increased her normal prednisone 3 milligrams up to 10 mg temporarily. - Will see what oncologys recommendations for this are going forward. HTN, HLD, CAD, s/p CABG four-vessel -Continue metoprolol, isosorbide, Ranexa, atorvastatin, aspirin. Sjogren's syndrome - Continue cevimeline. COPD - Per patient, covered with oral steroids as well as albuterol prn. GERD - On protonix. Cachexia - BMI 18, albumin 2.4. Is on boost. Oral candidiasis -Monitoring Code status: Full code. Diet: Regular. DVT prophy: Lovenox. PT/OT: Deferred. Dispo: Admit to [facility]. (2) Febrile neutropenia: (3) Non-small cell lung cancer (NSCLC): (4) Pancytopenia: (5) Anemia: (6) Thrombocytopenia: (7) Hypokalemia: (8) Hypomagnesemia: (9) Transaminitis: (10) Steroid dependence: (11) HTN (hypertension): (12) Hyperlipemia: (13) CAD, multiple vessel: (14) Sjogren's disease: (15) COPD (chronic obstructive pulmonary disease): (16) GERD (gastroesophageal reflux disease): (17) History of lymphoma: (18) Cachexia: (19) Oral candidiasis: Supervising Physician Co-Signing Physician Notes I personally examined the patient and verified all abraham points of history and exam, discussed case, and agree with decision making with Dr Dougherty. Feeling better. Breathing okay. No further fevers for days. White count not yet up. Vitals noted, in general she is awake and alert pleasant no distress. HEENT normocephalic atraumatic mucous members moist. Breathing unlabored no accessory muscle use good effort. Skin shows no rashes no pallor or icterus. Neutropenic fevercultures negative so far, she appears to be improving. She is now afebrile for days. His lungs are white count show some improvement, we can hopefully look towards home tomorrow on Zithromax and Augmentin. Continue supportive care for now. Subjective Patient is doing well this morning. States that she is breathing well this morning. No fevers, no chest pain, no n/v/d. Review of Systems Review of Systems: All systems reviewed & are unremarkable except as noted in HPI & below Physical Exam Constitutional: WD/WN, vitals as above Eyes: PERRL, conjunctivae normal, anicteric sclerae ENMT: external ear and nose normal, oropharynx normal Neck: trachea midline, no thyromegaly Respiratory: normal respiratory effort, lungs clear to auscultation Cardiovascular: RRR, no murmur, no edema Gastrointestinal (Abdomen): normal bowel sounds, soft, nontender, no hepatosplenomegaly Musculoskeletal: no cyanosis or clubbing, extremities motor strength 5/5 Skin: no rashes, warm and dry Psychiatric: A+Ox3, euthymic affect Results & Data Vital Signs (Past 12 Hours) Vital Signs Temp Pulse Resp BP Pulse Ox 10/04/18 15:29 36.7 C 76 14 155/84 H 92 10/04/18 11:22 36.9 C 80 16 170/91 H 90 (1) Anemia Anemia type: unspecified type Qualified Code(s): D64.9 - Anemia, unspecified (2) Non-small cell lung cancer (NSCLC) Laterality: right Qualified Code(s): C34.91 - Malignant neoplasm of unspecified part of right bronchus or lung (3) COPD (chronic obstructive pulmonary disease) COPD type: COPD with acute lower respiratory infection Qualified Code(s): J44.0 - Chronic obstructive pulmonary disease with acute lower respiratory infection (4) Bilateral pneumonia Lung location: lower lobe of lung Pneumonia type: due to unspecified organism Qualified Code(s): J18.1 - Lobar pneumonia, unspecified organism
[2018-10-05] MEDS: HEPARIN 100 UNIT/ML 5ML FLUSH FLUSH PRN ×3 (03:15→13:05)
[2018-10-05 06:55] LABS: Hematocrit (blood only) 32.7 % (37-47); Mean Corpuscular Hgb Conc 33.6 g/dL (32-36); Mean Corpuscular Volume 84.3 fL (80-100); Platelet Count 32 K/uL (130-400); RDW Coefficient of Variation 20.9 % (11.5-14.5); RDW Standard Deviation 63.5 fL (36.4-46.3); Red Blood Count 3.88 M/uL (4.2-5.4)
[2018-10-05 07:25] LABS: Calcium 8.2 mg/dl (8.5-10.1); Creatinine Clr Calc Pharmacy 48.3 ml/min; Est GFR (African American) 100.9; Potassium 3.6 mmol/L (3.5-5.1)
[2018-10-05 08:17] LABS: Giant Platelets 2+; Platelet Estimate SIGNIFIC DECREASED (Normal)
[2018-10-05 08:27] LABS: ALC (manual) 0.95 K/uL (1.2-3.4); Large Granular Lymph % (manual) 23.2 %; Lymphocytes # (manual) 0.65 K/uL (1.2-3.4); Monocytes # (manual) 0.02 K/uL (0.11-0.59); Monocytes % (manual) 1.8 %
[2018-10-05] MEDS: PIPERACILLIN/TAZOBACTAM 3.375 GM in DEXTROSE 5% 100 ML IV SCH (09:09)
[2018-10-05] MEDS: CALCIUM 600MG + VIT D 400 IU TAB PO SCH (09:09)
[2018-10-05] MEDS: POTASSIUM CHLORIDE 10 MEQ TABCR PO SCH ×2 (09:09→11:57)
[2018-10-05] MEDS: RANOLAZINE 500 MG ER TAB PO SCH (09:10)
[2018-10-05] MEDS: AZITHROMYCIN 250 MG/6.25 ML UDP PO SCH (09:10)
[2018-10-05] MEDS: ONDANSETRON 4 MG TAB PO SCH ×2 (09:10→14:08)
[2018-10-05] MEDS: predniSONE 10 MG TABLET PO SCH (09:10)
[2018-10-05] MEDS: ISOSORBIDE MONO EXTENDED REL 60 MG TABCR PO SCH (09:10)
[2018-10-05] MEDS: PANTOprazole 40 MG TAB PO SCH (09:10)
[2018-10-05] MEDS: METOPROLOL TARTRATE 25 MG TAB PO SCH (09:10)
[2018-10-05] MEDS: ALBUTEROL HFA INHALER 8.5 GM INH SCH ×2 (09:10→13:05)
[2018-10-05] MEDS: DEXAMETHASONE CONC 3.75 MG, NYSTATIN 30 ML, DiphenhydrAMINE Syrup 300 MG, ORA-SWEET SYR... PO PRN (09:12)
[2018-10-05] MEDS: DIPHENOXYLATE/ATROPINE 2.5/0.025MG TAB PO PRN (10:27)
[2018-10-05] MEDS: FILGRASTIM 300 MCG/ML VIAL SQ SCH (10:28)
[2018-10-05] MEDS: ASPIRIN 81 MG ECTAB PO SCH (11:57)
[2018-10-05] MEDS: ENOXAPARIN INJ 40 MG/0.4 ML SYR SQ SCH (14:09)
--- NOTE | 2018-10-05 14:21 | Infectious Disease Progress Nt ---
Date of Service October 05, 2018 Assessment & Plan (1) Febrile neutropenia: continue abx, follow blood cultures, remain negative. anc increasing, remains afebrile. agree with transition to po abx. Subjective pt for tentative d/c on po abx. cultures remain negative, she remain afebrile. wbc, anc increased today. tolerating zosyn. Results & Data Vital Signs (Past 12 Hours) Vital Signs Temp Pulse Pulse Resp BP BP Pulse Ox 10/05/18 13:42 37.3 C 77 76 16 135/80 163/85 H 94 10/05/18 11:57 37.3 C 76 16 135/80 94 10/05/18 08:06 37 C 82 16 164/92 H 93 10/05/18 03:08 36.6 C 77 18 175/91 H 94 Laboratory Results Microbiology 10/01/18 11:47 Blood Aerobic Blood Culture - Preliminary No growth in Aerobic bottle after 48 hours. 10/01/18 11:47 Blood Anaerobic Blood Culture - Preliminary No growth in Anaerobic bottle after 48 hours. 10/01/18 11:12 Blood Aerobic Blood Culture - Preliminary No growth in Aerobic bottle after 48 hours. 10/01/18 11:12 Blood Anaerobic Blood Culture - Preliminary No growth in Anaerobic bottle after 48 hours.
--- NOTE | 2018-10-05 22:16 | Discharge Summary ---
Date of Service October 05, 2018 Admission HPI Per Admitting Provider 73-year-old female discharged from our hospital August 30 after being treated for a pneumonia associated with COPD lung small cell lung cancer currently receiving chemotherapy. At the time she was discharged on levofloxacin and at that presentation she was mildly neutropenic. After discharge the patient states she never really quite felt like she bounced back however continued to remain in her chemotherapeutic cycle and did receive chemotherapy 2 days prior to this admission. She presents to the hospital today with weakness nonproductive cough and a fever. In the ER she is not neutropenic currently but she is only 2 days out of chemo her temperature was 38.5 she is mildly hypertensive not hypoxic. Chest x-ray upon review does show persistent right upper lobe spiculated mass which was known from previous and previously diagnosed as non-small cell lung cancer. Patient however does have some right basilar changes which is consistent with pneumonia and does look to be progressive from previous at the time of discharge patient was on a prednisone taper she currently has resumed her normal daily dose of 3 mg a day. Patient cannot site any other physical concerns or be associated as a source of her fever Patient suffers from daily nausea since her chemotherapy does take scheduled Zofran which we will continue Admission Exam Per Admitting Provider Constitutional: + ill appearing and + thin Eyes: PERRL, conjunctivae normal, anicteric sclerae ENMT: external ear and nose normal, oropharynx normal Neck: trachea midline, no thyromegaly Respiratory: Audible wheezing, prolonged expiratory phase. Rhonchi at the right base. Accessory muscle use. Mild tachypnea. Cardiovascular: Mildly tachycardic. Regular rhythm. Grade 1/6 systolic murmur. Negative S3 Gastrointestinal (Abdomen): normal bowel sounds, soft, nontender, no hepatosplenomegaly Musculoskeletal: no cyanosis or clubbing, extremities motor strength 5/5 Skin: no rashes, warm and dry no jaundice Chronic venous stasis changes bilateral pretibial areas Neurologic: CN's II-XI intact bilaterally, moves all extremities and + focal motor deficit Generalized weakness Principal Diagnosis Pneumonia, neutropenic fever Discharge Exam Constitutional + ill appearing and + thin Eyes PERRL, conjunctivae normal, anicteric sclerae ENMT external ear and nose normal, oropharynx normal Neck trachea midline, no thyromegaly Respiratory normal respiratory effort, lungs clear to auscultation Cardiovascular RRR, no murmur, no edema Gastrointestinal (Abdomen) normal bowel sounds, soft, nontender, no hepatosplenomegaly Musculoskeletal no cyanosis or clubbing, extremities motor strength 5/5 Skin no rashes, warm and dry Psychiatric A+Ox3, euthymic affect Discharge Data Allergies Allergy/AdvReac Type Severity Reaction Status Date / Time No Known Allergies Allergy Verified 10/01/18 10:27 Consultations 10/01/18 12:05 ED Decision to Admit Stat 10/01/18 13:38 Consult Case Management - Discharge Planning Routine 10/02/18 10:40 Consult Oncology Routine 10/02/18 11:16 Consult Infectious Diseases Routine [place] [phone] XRay Report Patient: GLORIA KUMARI AAdmit Date: 10/01/18 MR#: [id number] [facility] Acct ID:[id number]: [facility] Zip[facility] [place] [id number] Age: 73Location: 4E Sex: F Room/Bed: [facility] Att Phy: Brea Wiggins MDDiagnosis: PNEUMONIA Mirian Phy: Evin Tinajero M.D.Service Date: 10/03/18 Fam Phy: Orlando Tian MDInterpreting Phy: Rubio Lundberg Admit Phy: Willie Avina MD Ordering Phy: Selvin Hassan MD cc: ~ XR chest 2V routine HISTORY: 73 years-old Female eval for infiltrate acute shortness of breath COMPARISON: Chest radiograph 10/01/2018, CT abdomen and pelvis 09/25/2018, PET CT 08/02/2018 TECHNIQUE: PA and lateral views of the chest FINDINGS: Cardiac silhouette is mildly enlarged. Prior median sternotomy. Calcification of the thoracic aortic arch. Stable positioning of the left subclavian Uhbqgs-t-Chea catheter. Spiculated mass of the right upper lobe redemonstrated. Bilateral mid and lower lung zone reticular nodular opacities redemonstrated. Mild right hemidiaphragmatic elevation. Subsegmental bibasilar consolidation with unchanged blunting of the costophrenic angles suggest probable atelectasis. There is no pneumothorax, large pleural effusion or overt pulmonary edema. Degenerative changes of the shoulders and spine. Surgical clips project over the upper abdomen. IMPRESSION: 1. Spiculated mass of the right upper lobe redemonstrated. 2. Bilateral mid and lower lung zone predominant reticular nodular opacities are redemonstrated suggestive of a probable infectious or inflammatory pneumonitis. The above report was generated using voice recognition software. It may contain grammatical, syntax or spelling errors. Electronically signed by: Selvin Lundberg M.D. 10/03/2018 11:24 AM Hospital Course (1) Bilateral pneumonia: 73-year-old female was admitted on 01 October 2018 for weakness, non- productive cough, and fever on chemotherapy. Pneumonia, febrile neutropenia On admission, the patient was altered, febrile and had a x-ray that showed bibasilar opacities Admitted and treated with Zosyn/azithromycin for total of 4 days Discharged with a course of 10 days of Augmentin and 2 days of azithromycin for pneumonia complicated by immunocompromised state -Recently admitted on 06May on levofloxacin for PNA -Followed by oncology while in the hospital, recommends to hold patient's chemotherapy and to reassess regimen moving forward. We will follow-up in the outpatient. Non-small cell lung cancer - On chemotherapy since last 16May discharge, last round 05Jun. Daily nausea, controlled with Zofran prn. On weekly Hizentra. - Oncology following Dr. De La O, plan is to follow in the outpatient, may need to discontinue current chemo course Diarrhea at the time of discharge Low suspicion considering patient's clinical condition. Risk of delayed discharge was considered Stool sample obtained for C. difficile toxin/gene We will follow-up with the patient if test is positive Pancytopenia, S/p chemotherapy. On neutropenia precautions. -Nuepogen x2 in the hospital, patient also received blood and platelets Blood counts improved at the time of discharge White count was 1.3, hemoglobin was 11, platelets were 32 Electrolyte abnormalities - Hypocalcemia: Ca down to 7.6, though corrects to 8.9 for hypoalbuminemia. - Hypokalemia: K as low as 3.3. Replaced, monitoring. Is on a daily KCl supplement. - Hypomagnesaemia: Mg down to 1.6. Replaced, monitoring. Transaminitis - Mild AST, ALT elevation. May be chemotherapeutically related. No clear evidence of liver dysfunction. Steroid dependence -Continue home prednisone dose HTN, HLD, CAD, s/p CABG four-vessel -Continue metoprolol, isosorbide, Ranexa, atorvastatin, aspirin. Sjogren's syndrome - Continue cevimeline. COPD - Per patient, covered with oral steroids as well as albuterol prn. GERD - On protonix. Cachexia - BMI 18, albumin 2.4. Is on boost. Oral candidiasis -Monitoring (2) Febrile neutropenia: (3) Non-small cell lung cancer (NSCLC): (4) Pancytopenia: (5) Anemia: (6) Thrombocytopenia: (7) Hypokalemia: (8) Hypomagnesemia: (9) Transaminitis: (10) Steroid dependence: (11) HTN (hypertension): (12) Hyperlipemia: (13) CAD, multiple vessel: (14) Sjogren's disease: (15) COPD (chronic obstructive pulmonary disease): (16) GERD (gastroesophageal reflux disease): (17) History of lymphoma: (18) Cachexia: (19) Oral candidiasis: Total Time Total Time Spent Total Time Spent (In Minutes): <30 Total Time Includes: Examination of the Patient, Discharge Planning, Medication Reconciliation and Communication With Other Providers Supervising Physician Co-Signing Physician Notes I personally examined the patient and verified all abraham points of history and exam, discussed case, and agree with decision making with Dr Dougherty. Feeling better. Breathing okay. has had some diarrhea but ongoing not really worse no abdominal pain no f/c/s, eating OK and feeling good. oncology Ok w discharge as well. Vitals noted, in general she is awake and alert pleasant no distress. HEENT n ormocephalic atraumatic mucous members moist. Breathing unlabored no accessory muscle use good effort. Skin shows no rashes no pallor or icterus. abd soft nd nt no guarding/rebound/rigidity Neutropenic fevercultures negative so far, improving. diarrhea seems much more likely just antibiotic side effect - with her lack of recurrent fevers/slowly improving WBC, and most importantly feeling/examining better - exceedingly unlikely to represent Cdiff. unfortunately with counts still being down, priobiotic could be risky. discussed with pt to follow for feeling worse/escalating diarrhea/fevers - she expresses understanding and desire to go home and follow symptoms. Resident Activity Tracking Resident Involvement: Resident Care Provided Care Provided: Adult Hospital Medicine
== END 2018-10-05 15:58 | disposition home health service (06) | DRG 193 ==
LOC: ED 09:46 → SUATTDRO 12:29 → 4E 12:29

== ENCOUNTER 2018-10-06 10:35 | Observation (INO) ==
[2018-10-06] MEDS ORDERED: LIDOCAINE HCL 4% w/ Afrin 4 ML VIAL ONE ×2 (11:15→14:33)
[2018-10-06] MEDS ORDERED: TRANEXAMIC ACID 10% SOLN for EPISTAXIS TOP ONE (11:18)
[2018-10-06] MEDS ORDERED: LIDOCAINE HCL 4% w/ Afrin 4 ML VIAL STA ×2 (11:19→14:32)
[2018-10-06 11:58] LABS: iSTAT Creatinine 0.5 mg/dl (0.6-1.3); iSTAT Hemoglobin 10.9 g/dl (12.0-16.0); iSTAT Ionized Calcium 1.17 mmol/l (1.12-1.32); iSTAT Potassium 3.8 mEq/L (3.3-5.0)
[2018-10-06 12:08] LABS: Albumin Level 2.4 gm/dl (3.4-5.0); BUN Creatinine Ratio 35.2 (10-20); Calcium 8.3 mg/dl (8.5-10.1); Creatinine Clr Calc Pharmacy 59.9 ml/min; Est GFR (African American) 109.1; Est GFR (Non-African American) 94.1; Potassium 3.8 mmol/L (3.5-5.1)
[2018-10-06 12:11] LABS: Albumin Globulin Ratio 0.7 (0.9-2); Bilirubin,Total 0.8 mg/dl (0.2-1); Globulin 3.6 gm/dl (2.5-4.0)
[2018-10-06 12:18] LABS: Mean Corpuscular Hgb Conc 32.6 g/dL (32-36)
[2018-10-06 13:05] LABS: Hematocrit (blood only) 34.7 % (37-47); Hemoglobin 11.3 g/dL (12.0-16.0); Mean Corpuscular Volume 86.5 fL (80-100); Nucleated RBC # (auto) 0.05 K/uL (0-0); Nucleated RBC % (auto) 3.2 %; Platelet Count 37 K/uL (130-400); RDW Coefficient of Variation 20.1 % (11.5-14.5); RDW Standard Deviation 63.7 fL (36.4-46.3); Red Blood Count 4.01 M/uL (4.2-5.4); White Blood Count 1.68 K/uL (4.8-10.8)
[2018-10-06 13:07] LABS: Anisocytosis Present; Basophils # (auto) 0.01 K/uL (0-0.2); Basophils % (auto) 0.6 %; Eosinophils # (auto) 0.01 K/uL (0-0.5); Eosinophils % (auto) 0.6 %; Giant Platelets 3+; Immature Granulocytes # (auto) 0.03 K/uL (0.00-0.02); Immature Granulocytes % (auto) 1.8 %; Lymphocytes # (auto) 0.99 K/uL (1.2-3.4); Lymphocytes % (auto) 58.9 %; Monocytes # (auto) 0.44 K/uL (0.11-0.59); Monocytes % (auto) 26.2 %; Neutrophils % (auto) 11.9 %; Platelet Estimate Decreased (Normal)
[2018-10-06 13:36] LABS: Partial Thromboplastin Ratio 0.9; Partial Thromboplastin Time 25.4 Seconds (21.0-31.0); Prothrombin Time 9.9 Seconds (9.0-12.0)
[2018-10-06] MEDS ORDERED: HEPARIN 100 UNIT/ML 5ML FLUSH ONE (13:59)
--- NOTE | 2018-10-06 15:17 | Emergency Department Note ---
Entered by Nina Love acting as a scribe for Srinivas Tyson MD History of Present Illness General Chief complaint: Nose Bleed (Minor) Stated complaint: NOSE BLEED OFF AND ON ALL MORNING Time Seen by Provider: 10/06/18 10:58 Source: patient History of Present Illness Onset (ago): hour(s) (this morning) Location: face (nose) Pain Consistency: + other (episode) Quality: + other (nosebleed) Associated symptoms: + other (coughing up blood clot); no fever/chills The patient is a 73 year old female that is presenting to the Emergency Room with complaints of an episode of intermittent nosebleeds that started around 0630 this morning. The patient reports that she is bleeding more from the left side. She states that she coughed up a blood clot after the nosebleed began. She denies any fever. The patient notes that she was discharged from the hospital yesterday following a 5 day stay. She states that she had a fever for 24 hour when she was admitted. She reports that she is currently undergoing chemotherapy treatment for blood cancer. She states that she received 3L of blood yesterday and 2L of platelets. She denies taking any blood thinners besides a daily baby aspirin. Home Medications Home Medications Medication Instructions Recorded Confirmed Type albuterol sulfate [ProAir HFA] 2 puff INHALATION QID 06/21/18 10/06/18 History aspirin [Aspir-81] 81 mg PO QDL 06/21/18 10/06/18 History cevimeline 30 mg PO TIDM 06/21/18 10/06/18 History epinephrine [EpiPen] 0.3 mg IM Q3H PRN 06/21/18 10/06/18 History isosorbide mononitrate 60 mg PO QAM 06/21/18 10/06/18 History magnesium 500 mg PO QAM 06/21/18 10/06/18 History metoprolol tartrate 75 mg PO BID 06/21/18 10/06/18 History multivitamin 1 tab PO QPM 06/21/18 10/06/18 History nitroglycerin [Nitrostat] 0.4 mg SUBLINGUAL UD PRN 06/21/18 10/06/18 History ondansetron 8 mg PO QID PRN 06/21/18 10/06/18 History potassium chloride 10 meq PO TIDM 06/21/18 10/06/18 History raloxifene 60 mg PO QPM 06/21/18 10/06/18 History ranolazine [Ranexa] 500 mg PO BID 06/21/18 10/06/18 History simvastatin 40 mg PO HS 06/21/18 10/06/18 History Calcium 600 + D(3) 1 cap PO BIDM 09/06/18 10/06/18 History Plexus-Probio 5 1 tab PO PM 09/23/18 10/06/18 History Resveratrol Plus 300mg 300 mg PO HS 09/23/18 10/06/18 History dexamethasone 4 mg PO UD 09/23/18 10/06/18 History diphenoxylate-atropine 1 - 2 tab PO Q4H PRN 09/23/18 10/06/18 History hydrocodone-acetaminophen 1 tab PO Q6H PRN 09/23/18 10/06/18 History pantoprazole 40 mg PO BID 09/23/18 10/06/18 History prochlorperazine maleate 10 mg PO Q6H PRN 09/23/18 10/06/18 History benzonatate 100 mg PO UD PRN 09/25/18 10/06/18 History amoxicillin-pot clavulanate 1 tab PO BID 10 Days #20 tab 10/05/18 10/06/18 Rx [Augmentin] prednisone 3 mg PO QAM #0 tab 10/07/18 10/06/18 Rx Allergies Allergy/AdvReac Type Severity Reaction Status Date / Time No Known Allergies Allergy Verified 10/06/18 11:59 Past Med/Surg History Medical History Full cardiopulmonary resuscitation status (Acute) Hypomagnesemia Immunosuppression Steroid dependence COPD exacerbation (Acute) Pneumonia (Acute) Acute respiratory failure with hypoxia (Acute) Sjogren's disease (Chronic) Non-small cell lung cancer (NSCLC) (Acute) Stable angina Lung cancer, upper lobe (Inactive) CAD (coronary artery disease), [place] coronary artery With stable angina Decreased diffusion capacity of lung GERD (gastroesophageal reflux disease) DIET CONTROLLED History of lung cancer DX 1 YEAR AGO. 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 Surgical History Coronary artery bypass grafts x 4 (Chronic 06/13/12) History of arthroscopy RIGHT KNEE MENISCUS History of cholecystectomy History of colonoscopy History of coronary artery bypass graft 4 VESSEL, [facility] 6 YEARS AGO History of hysterectomy History of surgical removal of meniscus of knee Family History Unknown Heart disease Other Family history non-contributory Social History Preferred Language: Slovak Communication Ability: Effective Services Host Required: No Beliefs That Will Affect Care: None marital status: Current Living Situation: Spouse and Family Current Living Situation Comment: and son current occupational status: retired 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 and A total of 10 systems reviewed and were otherwise negative Physical Exam Vital Signs Vital Signs - 24 hr 10/06/18 10:37 10/06/18 11:45 10/06/18 11:52 Temperature 36.4 C L Temperature Source Oral Sepsis Recent Fever Within 48 Hours No Sepsis New/Unexplained Change in Mental Status No Sepsis Action Taken by Nursing No Action Required Pulse Rate 85 Pulse Rate [Left Finger] 81 Pulse Rhythm [Left Finger] Regular Respiratory Rate 18 21 Respiratory Effort / Characteristics Non-Labored Respiratory Depth Normal Respiratory Pattern Regular Blood Pressure 158/94 H Blood Pressure [Left Arm] 137/89 Blood Pressure Mean 115 Blood Pressure Mean [Left Arm] 105 Pulse Oximetry 93 93 93 Oxygen Delivery Method Room Air Room Air Room Air 10/06/18 13:00 Temperature Temperature Source Sepsis Recent Fever Within 48 Hours Sepsis New/Unexplained Change in Mental Status Sepsis Action Taken by Nursing Pulse Rate Pulse Rate [Left Finger] 80 Pulse Rhythm [Left Finger] Regular Respiratory Rate 20 Respiratory Effort / Characteristics Non-Labored Respiratory Depth Normal Respiratory Pattern Regular Blood Pressure Blood Pressure [Left Arm] 136/90 Blood Pressure Mean Blood Pressure Mean [Left Arm] 105 Pulse Oximetry 95 Oxygen Delivery Method Room Air GENERAL: Awake, alert, well-appearing, in no acute distress HENT: Normocephalic, atraumatic. Large amount of dried blood in her mouth and left nares. EYES: Normal conjunctiva. Sclera non-icteric. NECK: Supple. No nuchal rigidity. FROM. No JVD. RESPIRATORY: Clear to auscultation. CARDIAC: Regular rate, normal rhythm. Extremities warm and well perfused. Pulses equal. ABDOMEN: Soft, non-distended. No tenderness to palpation. No rebound or guarding. No masses. RECTAL: Deferred. MUSCULOSKELETAL: Chest examination reveals no tenderness. The back is symmetrical on inspection without obvious abnormality. There is no CVA tenderness to palpation. No joint edema. LOWER EXTREMITIES: Calves are equal size bilaterally and non-tender. No edema. No discoloration. NEURO: Normal sensorium. No sensory or motor deficits noted. SKIN: No rash or jaundice noted. Procedures Epistaxis Control Time Out Performed: Yes Nostril: left Nose Prepped With: lidocaine Direct Inspection: yes Clots Removed by: manually Cautery Used: none Device Inserted: hemostatic dressing (anterior) Patient Tolerated Procedure: well and no complications Course 1100:The patient was evaluated in room C04. A complete history and physical examination was performed. 1212: I performed an epistaxis control procedure with hemostatic dressing at this time. The patient tolerated the procedure well. 1353: Upon reevaluation, the patient appeared to have improvement of her symptoms. I discussed findings with the patient. She verbalized agreement of the treatment plan. She was discharged home. Administered Medications Discontinued Medications Albuterol (Ventolin Hfa) 2 puffs INH QID [facility] Stop: 11/05/18 20:59 Last Admin: 10/07/18 12:13 Dose: 2 puffs Documented by: [id number] Admin: 10/07/18 09:24 Dose: 2 puffs Documented by: [id number] Admin: 10/06/18 21:13 Dose: 2 puffs Documented by: [id number] Amoxicillin/Clavulanate Potassium (Augmentin 875mg) 1 tab PO BID [facility]; Protocol Stop: 10/13/18 20:59 Last Admin: 10/07/18 09:25 Dose: 1 tab Documented by: [id number] Admin: 10/06/18 20:18 Dose: 1 tab Documented by: [id number] Azithromycin (Zithromax) 250 mg PO DAILY [facility]; Protocol Stop: 10/14/18 08:59 Last Admin: 10/07/18 09:25 Dose: 250 mg Documented by: [id number] Diphenoxylate HCl/Atropine (Lomotil) 1 tab PO Q4H PRN PRN Reason: Diarrhea Stop: 11/05/18 19:03 Last Admin: 10/07/18 09:25 Dose: 1 tab Documented by: [id number] Heparin Sodium (Porcine) (Heparin Sod 100 Unit/Ml Flush) Confirm Administered D ose 5 ml .ROUTE .STK-MED ONE Stop: 10/06/18 14:00 Last Admin: 10/06/18 14:05 Dose: 5 ml Documented by: [id number] Dextrose/Lactated Ringer's (D5w And Lactated Ringers) 1,000 mls @ 80 mls/hr IV .[id number] [facility] Stop: 11/05/18 20:59 Last Admin: 10/07/18 07:26 Dose: 80 mls/hr Documented by: [id number] Infusion: 10/07/18 07:26 Dose: 80 mls/hr Documented by: [id number] Admin: 10/06/18 19:14 Dose: 80 mls/hr Documented by: [id number] Isosorbide Mononitrate (Imdur Extended Rel) 60 mg PO QAM [facility] Stop: 11/06/18 08:59 Last Admin: 10/07/18 09:25 Dose: 60 mg Documented by: [id number] Lidocaine HCl (Afrin W/Lidocaine 4%) Confirm Administered Dose 4 ml .ROUTE .STK- MED ONE Stop: 10/06/18 11:16 Last Admin: 10/06/18 11:28 Dose: Not Given Documented by: [id number] Lidocaine HCl (Afrin W/Lidocaine 4%) 4 ml NA NOW STA Stop: 10/06/18 11:20 Last Admin: 10/06/18 11:28 Dose: 4 ml Documented by: [id number] Lidocaine HCl (Afrin W/Lidocaine 4%) 4 ml NA NOW STA Stop: 10/06/18 14:33 Last Admin: 10/06/18 14:43 Dose: 4 ml Documented by: [id number] Lidocaine HCl (Afrin W/Lidocaine 4%) Confirm Administered Dose 4 ml .ROUTE .STK- MED ONE Stop: 10/06/18 14:34 Last Admin: 10/06/18 14:43 Dose: Not Given Documented by: [id number] Magnesium Oxide (Mag-Ox) 400 mg PO QAM [facility] Stop: 11/06/18 08:59 Last Admin: 10/07/18 09:25 Dose: 400 mg Documented by: [id number] Metoprolol Tartrate (Lopressor) 75 mg PO BID [facility] Stop: 11/05/18 20:59 Last Admin: 10/07/18 09:25 Dose: 75 mg Documented by: [id number] Admin: 10/06/18 20:18 Dose: 75 mg Documented by: [id number] Miscellaneous (Order Awaiting Action) 1 ea N/A QS [facility] Stop: 11/06/18 00:00 Last Admin: 10/07/18 07:29 Dose: Not Given Documented by: [id number] Admin: 10/06/18 23:36 Dose: Not Given Documented by: [id number] Pantoprazole Sodium (Protonix) 40 mg PO BID [facility] Stop: 11/05/18 20:59 Last Admin: 10/07/18 09:25 Dose: 40 mg Documented by: [id number] Admin: 10/06/18 20:18 Dose: 40 mg Documented by: [id number] Potassium Chloride (Klor-Con M10) 10 meq PO TIDM [facility] Stop: 11/05/18 19:03 Last Admin: 10/07/18 12:12 Dose: 10 meq Documented by: [id number] Admin: 10/07/18 07:29 Dose: 10 meq Documented by: [id number] Admin: 10/06/18 20:18 Dose: 10 meq Documented by: [id number] Prednisone (Prednisone) 3 mg PO QAM [facility] Stop: 11/06/18 08:59 Last Admin: 10/07/18 09:24 Dose: 3 mg Documented by: [id number] Ranolazine (Ranexa) 500 mg PO BID [facility] Stop: 11/05/18 20:59 Last Admin: 10/07/18 09:25 Dose: 500 mg Documented by: [id number] Admin: 10/06/18 20:18 Dose: 500 mg Documented by: [id number] Simvastatin (Zocor) 40 mg PO HS [facility] Stop: 11/05/18 20:59 Last Admin: 10/06/18 20:19 Dose: 40 mg Documented by: [id number] Tranexamic Acid (Tranexamic Acid 10% Soln For Epistaxis) 500 mg TOP ONE ONE Stop: 10/06/18 11: Last Admin: 10/06/18 12: Dose: 500 mg Documented by: [id number] Medical Decision Making Differential Diagnosis Differential diagnosis: Etiologies such as anterior epistaxis, coagulopathy, traumatic injury, fracture, septal hematoma, posterior epistaxis as well as other pathologies were entertained. Medical Records Attestation: I reviewed the patient's medical records. Home Medications Current Medication List: was personally reviewed by me Laboratory Data Attestation: I reviewed the patient's lab results. Result diagrams: 10/07/18 09:09 10/06/18 11:30 Lab Results 10/06/18 10/06/18 10/06/18 Range/Units 11:30 11:30 11:30 WBC 1.68 L (4.8-10.8) K/uL RBC 4.01 L (4.2-5.4) M/uL Hgb 11.3 L (12.0-16.0) g/dL POC Hgb (12.0-16.0) g/dl Hct 34.7 L (37-47) % POC Hct (37-47) % MCV 86.5 (80-100) fL MCH 28.2 (25-34) pg MCHC 32.6 (32-36) g/dL RDW Std Deviation 63.7 H (36.4-46.3) fL RDW Coeff of Marlene 20.1 H (11.5-14.5) % Plt Count 37 L (130-400) K/uL Immature Gran % (Auto) 1.8 % Neut % (Auto) 11.9 % Lymph % (Auto) 58.9 % Rogers % (Auto) 26.2 % Eos % (Auto) 0.6 % Baso % (Auto) 0.6 % Immature Gran # (Auto) 0.03 H (0.00-0.02) K/uL Neut # (Auto) 0.20 L* (1.4-6.5) K/uL Lymph # (Auto) 0.99 L (1.2-3.4) K/uL Rogers # (Auto) 0.44 (0.11-0.59) K/uL Eos # (Auto) 0.01 (0-0.5) K/uL Baso # (Auto) 0.01 (0-0.2) K/uL Absolute Nucleated RBC 0.05 H (0-0) K/uL Nucleated RBC % (auto) 3.2 % Platelet Estimate Decreased L (Normal) Giant Platelets 3+ Anisocytosis Present PT Cancelled INR Cancelled APTT Cancelled PTT Ratio Cancelled POC Sodium (135-144) mEq/L Sodium 137 (136-145) mmol/L POC Potassium (3.3-5.0) mEq/L Potassium 3.8 (3.5-5.1) mmol/L POC Chloride (101-112) mEq/L Chloride 106 (98-107) mmol/L Carbon Dioxide 27 (21-32) mmol/L POC Total CO2 (24-31) mEq/l Anion Gap 4.0 (3-11) POC Anion Gap (16-25) mmol/L POC BUN (7-18) mg/dl BUN 18 (7-18) mg/dl Creatinine 0.52 L (0.6-1.2) mg/dl POC Creatinine (0.6-1.3) mg/dl Est Cr Clr Drug Dosing 59.9 ml/min Est GFR ( Amer) 109.1 Est GFR (Non-Af Amer) 94.1 BUN/Creatinine Ratio 35.2 H (10-20) Glucose 96 (70-99) mg/dl POC Glucose (other) (70-99) mg/dl Calcium 8.3 L (8.5-10.1) mg/dl POC Ioniz Calcium Luigi (1.12-1.32) mmol/l Total Bilirubin 0.8 (0.2-1) mg/dl AST 34 (15-37) U/L ALT 42 (12-78) U/L Alkaline Phosphatase 66 (45-117) U/L Total Protein 6.0 L (6.4-8.2) gm/dl Albumin 2.4 L (3.4-5.0) gm/dl Globulin 3.6 (2.5-4.0) gm/dl Albumin/Globulin Ratio 0.7 L (0.9-2) Blood Type Antibody Screen 10/06/18 10/06/18 10/06/18 Range/Units 11:33 11:45 13:16 WBC (4.8-10.8) K/uL RBC (4.2-5.4) M/uL Hgb (12.0-16.0) g/dL POC Hgb 10.9 L (12.0-16.0) g/dl Hct (37-47) % POC Hct 32 L (37-47) % MCV (80-100) fL MCH (25-34) pg MCHC (32-36) g/dL RDW Std Deviation (36.4-46.3) fL RDW Coeff of Marlene (11.5-14.5) % Plt Count (130-400) K/uL Immature Gran % (Auto) % Neut % (Auto) % Lymph % (Auto) % Rogers % (Auto) % Eos % (Auto) % Baso % (Auto) % Immature Gran # (Auto) (0.00-0.02) K/uL Neut # (Auto) (1.4-6.5) K/uL Lymph # (Auto) (1.2-3.4) K/uL Rogers # (Auto) (0.11-0.59) K/uL Eos # (Auto) (0-0.5) K/uL Baso # (Auto) (0-0.2) K/uL Absolute Nucleated RBC (0-0) K/uL Nucleated RBC % (auto) % Platelet Estimate (Normal) Giant Platelets Anisocytosis PT 9.9 INR 1.0 APTT 25.4 PTT Ratio 0.9 POC Sodium 137 (135-144) mEq/L Sodium (136-145) mmol/L POC Potassium 3.8 (3.3-5.0) mEq/L Potassium (3.5-5.1) mmol/L POC Chloride 102 (101-112) mEq/L Chloride (98-107) mmol/L Carbon Dioxide (21-32) mmol/L POC Total CO2 25 (24-31) mEq/l Anion Gap (3-11) POC Anion Gap 16.0 (16-25) mmol/L POC BUN 17 (7-18) mg/dl BUN (7-18) mg/dl Creatinine (0.6-1.2) mg/dl POC Creatinine 0.5 L (0.6-1.3) mg/dl Est Cr Clr Drug Dosing ml/min Est GFR ( Amer) Est GFR (Non-Af Amer) BUN/Creatinine Ratio (10-20) Glucose (70-99) mg/dl POC Glucose (other) 101 H (70-99) mg/dl Calcium (8.5-10.1) mg/dl POC Ioniz Calcium Luigi 1.17 (1.12-1.32) mmol/l Total Bilirubin (0.2-1) mg/dl AST (15-37) U/L ALT (12-78) U/L Alkaline Phosphatase (45-117) U/L Total Protein (6.4-8.2) gm/dl Albumin (3.4-5.0) gm/dl Globulin (2.5-4.0) gm/dl Albumin/Globulin Ratio (0.9-2) Blood Type A Positive Antibody Screen NEGATIVE ECG Data Attestation: I personally reviewed and interpreted this ECG as follows: Indication: palpitations Rate (beats per minute): 80 Rhythm: normal sinus Findings: no ST depression, no ST elevation and no acute ischemic change Blood Pressure Blood Pressure Findings: Elevated blood pressure Blood Pressure Disposition: Referred to patients primary care provider MDM Narrative This is a 73-year-old female with a history of thrombocytopenia that presents to the emergency department complaining of nosebleed. The nosebleed was controlled using packing Afrin as well as lidocaine. Repeat examination revealed improvement in the patient's symptoms. The patient was observed for a total of 2 hours in the emergency department and again using shared medical decision making with the patient and her who felt that the bleeding was under c ontrol. The patient did request to go home at this point however upon getting out to the parking lot the patient began bleeding again. Packing was then reapplied and because of the patient's thrombocytopenia I did discuss the case with the hospitalist service as well as ENT who readily admitted the patient. Patient was in agreement with the treatment plan. Impression & Plan Acute anterior epistaxis, Thrombocytopenia Discharge Plan Visit Data *Final* Discharge Date/Time: 10/06/18 17:45 Chief Complaint: Nose Bleed (Minor) Stated Complaint: NOSE BLEED OFF AND ON ALL MORNING ED Provider: Srinivas Tyson Discharge Problem: Acute anterior epistaxis, Thrombocytopenia Patient Disposition: Admitted As Inpatient Condition: Good Discharge Instructions Interventions: ED Discharge Assessment Last Done: 10/06/18 17:45 The scribe's documentation has been prepared under my direction and personally reviewed by me in its entirety. I confirm that the note above accurately reflects all work, treatment, procedures, and medical decision making performed by me.
--- NOTE | 2018-10-06 16:06 | History & Physical Report ---
Date of Service October 06, 2018 Assessment & Plan (1) Epistaxis: 73 y/o F Hx non-small cell lung CA, pancytopenia, HTN, HLD, COPD, Sjogren's, CAD. Presents with a chief complaint of epistaxis. This was difficult to control in the ER but finally stabilized with packing. The bleed lasted for approximately 8 hours total. She denies any CP, SOB or lightheadedness. Her Hb is near baseline. She is neutropenic and has a platelet count of 37 which is also near baseline. The pt is presently being treated for PNM with a course of antibiotics. 1) Pt was assigned to telemetry overnight for EN valuation AM. She is stable at the time of admission. 2) HTN, HLD - cont Imdur. metoprolol, Zocor 3) CAD - ASA, B javan, statin - no evidence of ACS 4) COPD - no evidence of exacerbation - cont prescribed inhalers 5) CA - f/u as outpt - chemo on hold at present due to cell counts Full code - SCDs Total time for this admit including review of labs, meds, imaging, records - discussion with pt and ER attending - 35 min History of Present Illness Chief Complaint: Epistaxis Primary Care Provider: Evin Villalpando MD 73 y/o F Hx non-small cell lung CA, pancytopenia, HTN, HLD, COPD, Sjogren's, CAD. Presents with a chief complaint of epistaxis. This was difficult to control in the ER but finally stabilized with packing. The bleed lasted for approximately 8 hours total. She denies any CP, SOB or lightheadedness. Her Hb is near baseline. She is neutropenic and has a platelet count of 37 which is also near baseline. The pt is presently being treated for PNM with a course of antibiotics. PMH: 1) Non-small cell lung CA. Metastatic - currently treated with chemo 2) Pancytopenia 3) HTN 4) HLD 5) Autoimmune hepatitis 6) Sjogren's 7) COPD and reduced diffusion capacity - possibly related to Sjogren's 8) CAD - history of CABG 9) B - cell lymphoma 10) Osteoporosis 11) GERD 12) Protein malnutrition 13) GERD Surgical: CABG Social: Quit smoking, does not drink alcohol Family: Noncontributory Allergies Allergy/AdvReac Type Severity Reaction Status Date / Time No Known Allergies Allergy Verified 10/06/18 11:59 Home Medications Home Medications Medication Instructions Recorded Confirmed Type albuterol sulfate [ProAir HFA] 2 puff INHALATION QID 06/21/18 10/06/18 History aspirin [Aspir-81] 81 mg PO QDL 06/21/18 10/06/18 History cevimeline 30 mg PO TIDM 06/21/18 10/06/18 History epinephrine [EpiPen] 0.3 mg IM Q3H PRN 06/21/18 10/06/18 History isosorbide mononitrate 60 mg PO QAM 06/21/18 10/06/18 History magnesium 500 mg PO QAM 06/21/18 10/06/18 History metoprolol tartrate 75 mg PO BID 06/21/18 10/06/18 History multivitamin 1 tab PO QPM 06/21/18 10/06/18 History nitroglycerin [Nitrostat] 0.4 mg SUBLINGUAL UD PRN 06/21/18 10/06/18 History ondansetron 8 mg PO QID PRN 06/21/18 10/06/18 History potassium chloride 10 meq PO TIDM 06/21/18 10/06/18 History raloxifene 60 mg PO QPM 06/21/18 10/06/18 History ranolazine [Ranexa] 500 mg PO BID 06/21/18 10/06/18 History simvastatin 40 mg PO HS 06/21/18 10/06/18 History Calcium 600 + D(3) 1 cap PO BIDM 09/06/18 10/06/18 History Plexus-Probio 5 1 tab PO PM 09/23/18 10/06/18 History Resveratrol Plus 300mg 300 mg PO HS 09/23/18 10/06/18 History dexamethasone 4 mg PO UD 09/23/18 10/06/18 History diphenoxylate-atropine 1 - 2 tab PO Q4H PRN 09/23/18 10/06/18 History hydrocodone-acetaminophen 1 tab PO Q6H PRN 09/23/18 10/06/18 History pantoprazole 40 mg PO BID 09/23/18 10/06/18 History prochlorperazine maleate 10 mg PO Q6H PRN 09/23/18 10/06/18 History benzonatate 100 mg PO UD PRN 09/25/18 10/06/18 History amoxicillin-pot clavulanate 1 tab PO BID 10 Days #20 tab 10/05/18 10/06/18 Rx [Augmentin] prednisone 3 mg PO QAM #0 tab 10/07/18 10/06/18 Rx Past Med/Surg History Medical History Full cardiopulmonary resuscitation status (Acute) Hypomagnesemia Immunosuppression Steroid dependence COPD exacerbation (Acute) Pneumonia (Acute) Acute respiratory failure with hypoxia (Acute) Sjogren's disease (Chronic) Non-small cell lung cancer (NSCLC) (Acute) Stable angina Lung cancer, upper lobe (Inactive) CAD (coronary artery disease), [place] coronary artery With stable angina Decreased diffusion capacity of lung GERD (gastroesophageal reflux disease) DIET CONTROLLED History of lung cancer DX 1 YEAR AGO. 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 Surgical History Coronary artery bypass grafts x 4 (Chronic 06/13/12) History of arthroscopy RIGHT KNEE MENISCUS History of cholecystectomy History of colonoscopy History of coronary artery bypass graft 4 [place], [facility] [place] [facility] [place] 6 [place] History of hysterectomy History of surgical removal of meniscus of knee Family History Unknown Heart disease Other Family history non-contributory Social History Preferred Language: Portuguese Communication Ability: Effective Beliefs That Will Affect Care: None marital status: Current Living Situation: Spouse and Family Current Living Situation Comment: and son current occupational status: retired 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 Feels Safe at Home: Yes Smoking Status: Never smoker Second Hand Exposure: No Hx Alcohol Use: No Hx Substance Use: No Review of Systems Review of Systems: Gen: Generally weak with a poor appetite ENT: Denies congestion, throat pain, hearing loss - epistaxis as per HPI Eyes: Denies acute visual changes CV: Denies CP, palpitations Pulmonary: Denies SOB, cough, wheezing GI: Denies N/V, diarrhea, constipation Neuro: Denies acute or unilateral weakness, acute gait impairment, headache or acute visual changes Musculoskeletal: Denies joint pain, inflammation Endocrine: Denies polydipsia, polyuria Skin: Denies acute rashes or ulcers Physical Exam Physical Exam: General: AAO x 3, no distress ENT: No erythema or exudates, no thrush - there is dried blood in the mouth - she has a clamp on her nose Eyes: SUSAN, EOMI Head and neck: Normocephalic, atraumatic, No JVD, neck is supple. Chest/heart: Nontender, S1,2, RRR, no murmurs, no gallops Lungs: CTAB, no wheezing or crackles Abdomen: Nontender, nondistended, BS+ Neuro: AAO x 3, speech is clear, no unilateral weakness or loss of sensation, coordination intact Musculoskeletal: No joint inflammation, muscle tenderness, FROM Skin: No acute rashes or ulcers Extremities: No clubbing, cyanosis, edema Results & Data Vital Signs (Past 12 Hours) Vital Signs Temp Pulse Pulse Resp BP BP Pulse Ox 10/06/18 15:00 87 15 157/97 H 92 10/06/18 13:00 80 20 136/90 95 10/06/18 11:52 81 21 137/89 93 10/06/18 11:45 93 10/06/18 10:37 97.5 F L 85 18 158/94 H 93
[2018-10-06] MEDS ORDERED: NITROGLYCERIN SL 0.4 MG/TAB TAB SL PRN (19:04)
[2018-10-06] MEDS ORDERED: BENZONATATE 100 MG CAPSULE PO PRN (19:04)
[2018-10-06] MEDS ORDERED: DIPHENOXYLATE/ATROPINE 2.5/0.025MG TAB PO PRN (19:04)
[2018-10-06] MEDS ORDERED: ONDANSETRON INJ 2 MG/ML 2 ML VIAL IV PRN (19:04)
[2018-10-06] MEDS ORDERED: HYDROCODONE/ACETAMOPHEN 5/325MG TAB PO PRN (19:04)
[2018-10-06] MEDS: D5W AND LACTATED RINGERS 1,000 ML IV SCH (19:14)
[2018-10-06] MEDS: METOPROLOL TARTRATE 25 MG TAB PO SCH (20:18)
[2018-10-06] MEDS: RANOLAZINE 500 MG ER TAB PO SCH (20:18)
[2018-10-06] MEDS: PANTOprazole 40 MG TAB PO SCH (20:18)
[2018-10-06] MEDS: POTASSIUM CHLORIDE 10 MEQ TABCR PO SCH (20:18)
[2018-10-06] MEDS: AMOXICILLIN/CLAVULANATE 875 MG TAB PO SCH (20:18)
[2018-10-06] MEDS ORDERED: SIMVASTATIN 40 MG TAB PO SCH (21:00)
[2018-10-06] MEDS ORDERED: ALBUTEROL HFA INHALER 8.5 GM INH SCH (21:00)
[2018-10-06] MEDS: ALBUTEROL HFA 8 GM INHALER INH SCH (21:13)
[2018-10-06] MEDS ORDERED: HydrALAZINE 10 MG TAB PO PRN (21:53)
[2018-10-06] MEDS: [UNRECOGNIZED DRUG - REMARK] SCH (23:36)
[2018-10-07] MEDS: D5W AND LACTATED RINGERS 1,000 ML IV SCH (07:26)
[2018-10-07] MEDS: [UNRECOGNIZED DRUG - REMARK] SCH (07:29)
[2018-10-07] MEDS: POTASSIUM CHLORIDE 10 MEQ TABCR PO SCH ×2 (07:29→12:12)
[2018-10-07] MEDS ORDERED: AZITHROMYCIN 250 MG TAB PO SCH (09:00)
[2018-10-07] MEDS ORDERED: predniSONE 1 MG TAB PO SCH (09:00)
[2018-10-07] MEDS ORDERED: ISOSORBIDE MONO EXTENDED REL 60 MG TABCR PO SCH (09:00)
[2018-10-07] MEDS ORDERED: MAGNESIUM OXIDE 400 MG TAB PO SCH (09:00)
[2018-10-07] MEDS: ALBUTEROL HFA 8 GM INHALER INH SCH ×2 (09:24→12:13)
[2018-10-07] MEDS: PANTOprazole 40 MG TAB PO SCH (09:25)
[2018-10-07] MEDS: RANOLAZINE 500 MG ER TAB PO SCH (09:25)
[2018-10-07] MEDS: METOPROLOL TARTRATE 25 MG TAB PO SCH (09:25)
[2018-10-07] MEDS: AMOXICILLIN/CLAVULANATE 875 MG TAB PO SCH (09:25)
[2018-10-07 10:21] LABS: Hematocrit (blood only) 31.9 % (37-47); Hemoglobin 10.6 g/dL (12.0-16.0); Mean Corpuscular Hgb Conc 33.2 g/dL (32-36); Mean Platelet Volume 10.9 fL (7.4-10.4); Nucleated RBC # (auto) 0.05 K/uL (0-0); Nucleated RBC % (auto) 2.1 %; Platelet Count 44 K/uL (130-400); RDW Coefficient of Variation 19.7 % (11.5-14.5); RDW Standard Deviation 61.4 fL (36.4-46.3); Red Blood Count 3.71 M/uL (4.2-5.4); White Blood Count 2.58 K/uL (4.8-10.8)
[2018-10-07 12:30] LABS: Anisocytosis Present; Giant Platelets 2+; Ovalocytes 1+
[2018-10-07 12:35] LABS: ALC (manual) 1.84 K/uL (1.2-3.4); Blast # (manual) 0.02 K/uL (0-0); Blast Cells % (manual) 0.9 %; Eosinophils # (manual) 0.04 K/uL (0-0.5); Eosinophils % (manual) 1.7 %; Lymphocytes # (manual) 1.84 K/uL (1.2-3.4); Lymphocytes % (manual) 71.3 %; Metamyelocytes # (manual) 0.02 K/uL (0-0); Metamyelocytes % (manual) 0.9 %; Monocytes # (manual) 0.38 K/uL (0.11-0.59); Monocytes % (manual) 14.8 %; Myelocytes # (manual) 0.07 K/uL (0-0); Myelocytes % (manual) 2.6 %; Neutrophils % (manual) 7.8 %
--- NOTE | 2018-10-07 15:55 | ENT Consultation ---
Date of Consultation October 07, 2018 Assessment & Plan (1) Epistaxis: bleeding controlled with hemoderm, no surgical intervention needed History of Present Illness Reason for Consultation: epistaxis Attending Physician: Elliott Tapia DO History of Present Illness left side epistaxia, packed in ER, pack came out, has hemoderm powder Allergies Allergy/AdvReac Type Severity Reaction Status Date / Time No Known Allergies Allergy Verified 10/06/18 11:59 Home Medications Home Medications Medication Instructions Recorded Confirmed Type albuterol sulfate [ProAir HFA] 2 puff INHALATION QID 06/21/18 10/06/18 History aspirin [Aspir-81] 81 mg PO QDL 06/21/18 10/06/18 History cevimeline 30 mg PO TIDM 06/21/18 10/06/18 History epinephrine [EpiPen] 0.3 mg IM Q3H PRN 06/21/18 10/06/18 History isosorbide mononitrate 60 mg PO QAM 06/21/18 10/06/18 History magnesium 500 mg PO QAM 06/21/18 10/06/18 History metoprolol tartrate 75 mg PO BID 06/21/18 10/06/18 History multivitamin 1 tab PO QPM 06/21/18 10/06/18 History nitroglycerin [Nitrostat] 0.4 mg SUBLINGUAL UD PRN 06/21/18 10/06/18 History ondansetron 8 mg PO QID PRN 06/21/18 10/06/18 History potassium chloride 10 meq PO TIDM 06/21/18 10/06/18 History raloxifene 60 mg PO QPM 06/21/18 10/06/18 History ranolazine [Ranexa] 500 mg PO BID 06/21/18 10/06/18 History simvastatin 40 mg PO HS 06/21/18 10/06/18 History Calcium 600 + D(3) 1 cap PO BIDM 09/06/18 10/06/18 History Plexus-Probio 5 1 tab PO PM 09/23/18 10/06/18 History Resveratrol Plus 300mg 300 mg PO HS 09/23/18 10/06/18 History dexamethasone 4 mg PO UD 09/23/18 10/06/18 History diphenoxylate-atropine 1 - 2 tab PO Q4H PRN 09/23/18 10/06/18 History hydrocodone-acetaminophen 1 tab PO Q6H PRN 09/23/18 10/06/18 History pantoprazole 40 mg PO BID 09/23/18 10/06/18 History prednisone 10 mg PO QAM 09/23/18 10/06/18 History prochlorperazine maleate 10 mg PO Q6H PRN 09/23/18 10/06/18 History benzonatate 100 mg PO UD PRN 09/25/18 10/06/18 History amoxicillin-pot clavulanate 1 tab PO BID 10 Days #20 tab 10/05/18 10/06/18 Rx [Augmentin] Patient History Medical History Full cardiopulmonary resuscitation status (Acute) Hypomagnesemia Immunosuppression Steroid dependence COPD exacerbation (Acute) Pneumonia (Acute) Acute respiratory failure with hypoxia (Acute) Sjogren's disease (Chronic) Non-small cell lung cancer (NSCLC) (Acute) Stable angina Lung cancer, upper lobe (Inactive) CAD (coronary artery disease), [place] coronary artery With stable angina Decreased diffusion capacity of lung GERD (gastroesophageal reflux disease) DIET CONTROLLED History of lung cancer DX 1 YEAR AGO. 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 Surgical History Coronary artery bypass grafts x 4 (Chronic 06/13/12) History of arthroscopy RIGHT KNEE MENISCUS History of cholecystectomy History of colonoscopy History of coronary artery bypass graft 4 VESSEL, [facility] [place] 6 YEARS AGO History of hysterectomy History of surgical removal of meniscus of knee Family History Unknown Heart disease Other Family history non-contributory Social History Preferred Language: Malawian Communication Ability: Effective Supervisor Filter Assembly Required: No Beliefs That Will Affect Care: None marital status: Current Living Situation: Spouse and Family Current Living Situation Comment: and son current occupational status: retired 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 Other Information That Helps Us Care for You: No Feels Safe at Home: Yes Safety Concerns: Feels Safe At This Time Smoking Status: Never smoker Second Hand Exposure: No Hx Alcohol Use: No Hx Substance Use: No Physical Exam Constitutional: + ill appearing Eyes: PERRL, conjunctivae normal, anicteric sclerae ENMT: Nose: + nasal mucous membrane abnormality (old blood /powder left nares, no bleeding) Neck: trachea midline, no thyromegaly Respiratory: normal respiratory effort Cardiovascular: RRR, no murmur, no edema Results & Data Vital Signs (Past 12 Hours) Vital Signs Temp Pulse Resp BP Pulse Ox 10/07/18 06:59 37.3 C 97 H 18 169/88 H 92
--- NOTE | 2018-10-07 18:12 | Discharge Summary ---
Date of Service October 07, 2018 Admission HPI Per Admitting Provider 73 y/o F Hx non-small cell lung CA, pancytopenia, HTN, HLD, COPD, Sjogren's, CAD. Presents with a chief complaint of epistaxis. This was difficult to control in the ER but finally stabilized with packing. The bleed lasted for approximately 8 hours total. She denies any CP, SOB or lightheadedness. Her Hb is near baseline. She is neutropenic and has a platelet count of 37 which is also near baseline. The pt is presently being treated for PNM with a course of antibiotics. PMH: 1) Non-small cell lung CA. Metastatic - currently treated with chemo 2) Pancytopenia 3) HTN 4) HLD 5) Autoimmune hepatitis 6) Sjogren's 7) COPD and reduced diffusion capacity - possibly related to Sjogren's 8) CAD - history of CABG 9) B - cell lymphoma 10) Osteoporosis 11) GERD 12) Protein malnutrition 13) GERD Surgical: CABG Social: Quit smoking, does not drink alcohol Family: Noncontributory Principal Diagnosis Epistaxis Discharge Exam Constitutional + frail appearing; no acute distress Eyes + anicteric sclerae ENMT Ears: no hearing impairment Nose: + epistaxis (resolved with dried blood of L nare) Throat: uvula midline; no postnasal drainage Neck trachea midline Respiratory normal respiratory effort, lungs clear to auscultation Cardiovascular Rate/Rhythm: regular rate and regular rhythm Chest (Breasts) Chest: + vascular access device or port Gastrointestinal (Abdomen) Inspection/Auscultation: normal bowel sounds Percussion/Palpation: abdomen soft; abdomen nontender Musculoskeletal Head/Neck/Chest: normocephalic and head atraumatic Skin no rashes, warm and dry Neurologic moves all extremities Psychiatric A+Ox3, euthymic affect Discharge Data Allergies Allergy/AdvReac Type Severity Reaction Status Date / Time No Known Allergies Allergy Verified 10/06/18 11:59 Consultations 10/06/18 14:50 Consult Otolaryngology (Head and Neck) Stat ED Decision to Admit Stat 10/06/18 19:04 Consult Otolaryngology (Head and Neck) Routine Hospital Course (1) Epistaxis: - Patient presented due to epistaxis that would not control and reports approx. 8 hours of bleeding. Reports swallowing blood and coughing some clots. - Packing was initially trialed in ED but fell out and hemaderm was utilzed with cessation of bleeding - Hgb slightly reduced from day prior but no significant change and no need for transfusion; platelets were 37 on admission but 44 on D/C - evidence of one blast cell on peripheral smear - Remains neutropenic; finishing course of treatment prescribed on recent admission - please see discharge summary in regards to those details - ENT consulted - discussed with Dr. Gutierres - visualized nasal passages and reports no active signs of bleeding and does not need to F/U with patient or do further intervention unless having ongoing issue - Advised to hold aspirin for at least 5 days and if no further issues can resume as previously prescribed Total Time Total Time Spent Total Time Spent (In Minutes): Greater than 30 minutes Discharge Plan Discharge Items Patient Disposition: Home - Home Health Services Reason For Visit: EPISTAXIS Discharge Diagnosis: Nose Bleeds Condition: Good Discharge Goals: Decrease discomfort, Improve disease control and Improve function Activity: Resume your previous activity Non-emergency contact: Primary Care Provider Call non-emergency contact if: you have any medication questions, your symptoms worsen and you have a fever Follow-up/Referrals: Evin Villalpando MD [Primary Care Provider] - Diet: Regular Addtl Provider Instructions: Nose Bleed: - Likely this was from a blood vessel deep into your nose. The ER put a powder in the nose that helps stop the bleeding. - You probably swallowed some of the blood from your nose. Some people may see a little black in there stool due to this but normally it is minimal and not constant. If it is a lot of blood stool or continues to be black consistently talk to your doctor. - Thankfully the powder they used did the trick and you do not need a procedure to stop the bleeding. Dr. Gutierres doesn't need to see you in follow-up unless you have further issues. His office number is [phone]. - Recommend to hold your baby aspirin for the next 5 days and if no issues may resume this as previously prescribed - For the blood that is at the bottom of your nose, you can use a warm wash cloth and soften this up and gently wipe it. Recommend to not pick at this to cause any scab in the nose to rebleed. - Thankfully even with the bleeding your blood counts are stable and your platelets are actually trending up and are at 44,000 right now which is low but trending up compared to previous days - Your neutrophils (bacteria fighting white blood cells) are still low and it will be important to stay away from people who are sick or potentially sick. Recommend to wear a face mask when outside especially at the doctors to just help prevent you from catching an illness Medications: - Continue your previous medications as previously prescribed. No changes were made on this stay Follow-up: - You have a follow up with Dr. Villalpando for tomorrow 10/08 at 9:45 AM - this was arranged on your previous admission Prescriptions: Continued Calcium 600 + D(3) 600 mg calcium- 200 unit Capsule 1 cap PO BIDM RF: 0 pantoprazole 40 mg tablet,delayed release (DR/EC) 40 mg PO BID RF: 0 hydrocodone-acetaminophen 5-325 mg Tablet 1 tab PO Q6H PRN (Reason: Pain) RF: 0 diphenoxylate-atropine 2.5-0.025 mg tablet 1 - 2 tab PO Q4H PRN (Reason: Diarrhea) RF: 0 prochlorperazine maleate 10 mg tablet 10 mg PO Q6H PRN (Reason: Nausea) RF: 0 dexamethasone 4 mg tablet 4 mg PO UD RF: 0 Plexus-Probio 5 1 tab PO PM RF: 0 Resveratrol Plus 300mg 300 mg PO HS RF: 0 benzonatate 100 mg capsule 100 mg PO UD PRN (Reason: Cough) RF: 0 amoxicillin-pot clavulanate [Augmentin] 875-125 mg tablet 1 tab PO BID 10 Days Qty: 20 RF: 0 multivitamin Tablet 1 tab PO QPM RF: 0 potassium chloride 10 mEq Capsule, Extended Release 10 meq PO TIDM RF: 0 aspirin [Aspir-81] 81 mg Tablet,Delayed Release (Dr/Ec) 81 mg PO QDL RF: 0 simvastatin 40 mg Tablet 40 mg PO HS RF: 0 isosorbide mononitrate 60 mg Tablet Extended Release 24 Hr 60 mg PO QAM RF: 0 cevimeline 30 mg Capsule 30 mg PO TIDM RF: 0 nitroglycerin [Nitrostat] 0.4 mg Tablet, Sublingual 0.4 mg Sublingual UD PRN (Reason: Chest Pain) RF: 0 raloxifene 60 mg Tablet 60 mg PO QPM RF: 0 magnesium 250 mg Tablet 500 mg PO QAM RF: 0 epinephrine [EpiPen] 0.3 mg/0.3 mL Auto-Injector 0.3 mg IM Q3H PRN (Reason: PRN) RF: 0 albuterol sulfate [ProAir HFA] 90 mcg/actuation Hfa Aerosol Inhaler 2 puff INHALATION QID RF: 0 ondansetron 4 mg Tablet,Disintegrating 8 mg PO QID PRN (Reason: Nausea) RF: 0 ranolazine [Ranexa] 500 mg Tablet Extended Release 12 Hr 500 mg PO BID RF: 0 metoprolol tartrate 75 mg Tablet 75 mg PO BID RF: 0 Changed prednisone 10 mg tablet 3 mg PO QAM Qty: 0 RF: 0 Stand-Alone Forms: [employer]/Other Patient Handouts: Nosebleed Discharge Orders: Discharge Order (Routine); Ordered 10/07/18 Ordered By: Mercy Hastings Admission Data Admit Date/Time: 10/06/18 16:36 Attending Provider: Elliott Tapia Admit Provider: Bassam Agarwal Primary Care Provider: Evin Villalpando Other Providers: Effie Gutierres ; Bassam Agarwal Service: Medical Other Interventions: Discharge Summary Assessment (RN) Last Done: 10/07/18 16:28 Pending Studies at Discharge: No DC Date/Time DO NOT enter until pt leaves facility: 10/07/18 17:19 Supervising Physician Co-Signing Physician Notes Attending note: patient seen and examined with Mercy Hastings PA-C. I agree with her discharge summary. - Epistaxis: resolved with treatment in the ED patient seen by Dr. Gutierres, all bleeding stopped, no need for follow up hold aspirin for 5 days platelets low due to recent chemo, slowly increasing for full details see the d/c summary
== END 2018-10-07 17:19 | disposition home health service (06) ==
LOC: 3W 10:35 → ED 10:35 → SUATTDRO 16:36 → 3W 17:45

== ENCOUNTER 2019-04-05 12:45 | Observation (INO) ==
[2019-04-05] MEDS ORDERED: SODIUM CHLORIDE 0.9% 1000ML 1,000 ML IV ONE (13:30)
[2019-04-05] MEDS ORDERED: ACETAMINOPHEN 1,000 MG/100 ML VIAL IV STA (13:31)
[2019-04-05] MEDS ORDERED: PROCHLORPERAZINE 1 ML IV ONE (13:34)
[2019-04-05 14:13] LABS: Basophils # (auto) 0.01 K/uL (0-0.2); Basophils % (auto) 0.1 %; Eosinophils # (auto) 0.07 K/uL (0-0.5); Eosinophils % (auto) 0.9 %; Hemoglobin 12.2 g/dL (12.0-16.0); Immature Granulocytes # (auto) 0.02 K/uL (0.00-0.02); Immature Granulocytes % (auto) 0.3 %; Lymphocytes # (auto) 0.79 K/uL (1.2-3.4); Lymphocytes % (auto) 9.9 %; Mean Corpuscular Hemoglobin 30.9 pg (25-34); Mean Corpuscular Volume 93.7 fL (80-100); Mean Platelet Volume 9.3 fL (7.4-10.4); Monocytes % (auto) 12.6 %; Neutrophils # (auto) 6.07 K/uL (1.4-6.5); Neutrophils % (auto) 76.2 %; Platelet Count 120 K/uL (130-400); RDW Coefficient of Variation 14.9 % (11.5-14.5); RDW Standard Deviation 50.8 fL (36.4-46.3); Red Blood Count 3.95 M/uL (4.2-5.4); White Blood Count 7.96 K/uL (4.8-10.8)
[2019-04-05 14:26] LABS: Appearance Urine Clear (Clear); Bacteria Urine Automated Negative (Negative); Bilirubin Urine Negative (Negative); Blood Urine Negative (Negative); Color Urine Dark Yellow; Epithelial Cell Urine Auto >30 /lpf (0-5); Glucose Urine UA Negative (Negative); Ketones Urine Negative (Negative); Leukocyte Esterase Urine Negative (Negative); Nitrite Urine Negative (Negative); Protein Urine 1+ (Negative); RBC Urine Automated 0-4 /hpf (0-4); Specific Gravity Urine 1.023 (1.000-1.030); Urobilinogen Urine Negative (Negative)
[2019-04-05 14:29] LABS: Alanine Aminotransferase 41 U/L (12-78); Albumin Level 2.6 gm/dl (3.4-5.0); Aspartate Aminotransferase 50 U/L (15-37); BUN Creatinine Ratio 35.7 (10-20); Blood Urea Nitrogen 30 mg/dl (7-18); Calcium 8.8 mg/dl (8.5-10.1); Carbon Dioxide 23 mmol/L (21-32); Chloride 106 mmol/L (98-107); Creatinine Clr Calc Pharmacy 37.6 ml/min; Est GFR (African American) 79.4; Est GFR (Non-African American) 68.5; Glucose 148 mg/dl (70-99); Magnesium 1.6 mg/dl (1.8-2.4); Potassium 3.8 mmol/L (3.5-5.1); Sodium 137 mmol/L (136-145)
--- NOTE | 2019-04-05 14:31 | XRay Report ---
XR chest 1V portable CLINICAL HISTORY: 73 years-old Female presenting with Sepsis. TECHNIQUE: Portable upright AP view of the chest was obtained. COMPARISON: CT chest from 03/14/2019 and chest x-ray from 10/03/2018. FINDINGS: Left subclavian Mediport has been accessed and terminates in the SVC. Median sternotomy wires and med iastinal surgical clips noted. Atherosclerosis of the aortic arch. Cardiac silhouette top normal in s ize. Extensive heterogeneity of lung parenchyma. Opacity in the right upper lung is new from prior ch est x-ray but correlates with the masslike consolidation amidst bronchiectasis in the right upper lob e evident on chest CT. Diffuse reticular nodular opacities also evident correlating with multifocal n odular opacities on chest CT. No large effusion or pneumothorax. Suspected osteopenia. Cholecystectom y clips noted. IMPRESSION: 1. Right upper lung consolidation and multifocal nodular infiltrates as on prior chest CT. Underlyin g neoplasm and/or metastatic disease not excluded. No new infiltrate in comparison to prior CT to peter se concern for superimposed pneumonia. Electronically signed by: iVpul Calero M.D. 04/05/2019 2:30 PM
[2019-04-05 14:32] LABS: Partial Thromboplastin Ratio 1.8; Prothrombin Time 10.6 Seconds (9.0-12.0)
[2019-04-05 14:34] LABS: Albumin Globulin Ratio 0.6 (0.9-2); Alkaline Phosphatase 85 U/L (45-117); Bilirubin,Total 0.5 mg/dl (0.2-1); Globulin 4.1 gm/dl (2.5-4.0); Phosphorus 2.9 mg/dl (2.5-4.9); Total Protein 6.7 gm/dl (6.4-8.2); Troponin I < 0.015 ng/ml (0-0.045)
[2019-04-05 14:54] LABS: Partial Thromboplastin Time 48.4 Seconds (21.0-31.0)
[2019-04-05] MEDS ORDERED: PIPERACILL/TAZOBAC CONSULT ACTIVE PRN (15:01)
[2019-04-05] MEDS ORDERED: VANCOMYCIN HCL 750 MG in SODIUM CHLORIDE 0.9% 500 ML IV ONE (15:01)
[2019-04-05] MEDS ORDERED: PIPERACILLIN/TAZOBACTAM 4.5 GM/120 ML BAG IV ONE (15:01)
[2019-04-05] MEDS ORDERED: VANCOMYCIN CONSULT ACTIVE PRN (15:01)
[2019-04-05 15:03] LABS: Influenza A virus by PCR Neg for Influ A (Neg); Influenza B virus by PCR Neg for Influ B (Neg)
[2019-04-05] MEDS ORDERED: OPTIRAY 320 125ml IV PRN (15:11)
--- NOTE | 2019-04-05 15:38 | CT Scan Report ---
CT ANGIOGRAM OF THE CHEST CLINICAL HISTORY: Atypical chest pain SEPSIS COMPARISON STUDY: 03/14/2019, 07/10/2018, chest x-ray dated 04/05/2019 TECHNIQUE: Following the IV administration of 118 mL of [id number]-320, CT angiogram of the thorax was p erformed from the thoracic inlet to the lung bases utilizing the pulmonary embolus protocol. Images a re reviewed in the axial, sagittal, and coronal planes. IV contrast was administered without complica tion. MIP imaging was performed. A dose lowering technique was utilized adhering to the principles o f ALARA. CT DOSE: 215.09 mGy.cm FINDINGS: Mediastinal lymph nodes are the upper limits of normal in size, and similar to the preceding examinat ion. The ascending thoracic aorta measures 34 mm. There were no pulmonary artery filling defects to indicate acute pulmonary embolism. No pleural effusions are visualized. There is a progressive area of masslike right lobe consolidation measuring 6 cm. There are right midd le lobe bronchiectatic changes with atelectasis. There is a lower lobe bronchial wall thickening with mucous plugging. There are innumerable bilateral pulmonary nodules. An index 1 cm left pleural pulmo nary nodule remains unchanged in size. IMPRESSION: 1. No evidence of acute pulmonary embolism 2. Enlarging area of masslike consolidation within the right upper lobe measuring 6 cm. Progressive n eoplasm is the diagnosis of exclusion 3. Persistent lower lobe bronchial wall thickening and mucous plugging 4. Innumerable bilateral pulmonary nodules. While the findings could be infectious/inflammatory, meta static disease is again favored. 3. Electronically signed by: Jose Jackson M.D. 04/05/2019 3:37 PM
--- NOTE | 2019-04-05 16:42 | Emergency Department Note ---
Entered by Hakeem Mobley acting as a scribe for Woody Wilkinson MD History of Present Illness General Chief complaint: Chest Pain Stated complaint: CHEST PAIN, NAUSEA Time Seen by Provider: 04/05/19 13:18 Source: patient History of Present Illness Provider complaint: chest pain Onset (ago): hour(s) 7 Location: chest Pain Consistency: + intermittent Maximum Pain Intensity: 2 Relieved By: + medication (nitro) Associated symptoms: + denies other symptoms, + cough, + fever/chills and + nausea/vomiting (no vomiting) Treatments prior to arrival: other (nitro) The patient is a 73 y/o female who presents to the emergency department for evaluation of intermittent chest pain that began 7 hours ago. The patient states that she is also tired, having issues staying awake, fever, and nauseous. The family notes that the patient has had a cough since the weekend. She reports that she has a history of lung cancer and is in treatment now, receiving care every other week. They states that she is to go for treatment tomorrow and needed to be checked out prior to then. She notes that she is not on oxygen at home. Prior to arrival the patient reports taking nitroglycerin which helped ease the pain. The patient denies pain with a deep breath, urinary symptoms, though she notes a recent UTI, and any other symptoms. Home Medications Home Medications Medication Instructions Recorded Confirmed Type aspirin [Aspir-81] 81 mg PO QDL 06/21/18 04/05/19 History cevimeline 30 mg PO TIDM 06/21/18 04/05/19 History epinephrine [EpiPen] 0.3 mg IM Q3H PRN 06/21/18 04/05/19 History isosorbide mononitrate 60 mg PO QAM 06/21/18 04/05/19 History magnesium 500 mg PO QAM 06/21/18 04/05/19 History metoprolol tartrate 75 mg PO BID 06/21/18 04/05/19 History multivitamin 1 tab PO QPM 06/21/18 04/05/19 History nitroglycerin [Nitrostat] 0.4 mg SUBLINGUAL UD PRN 06/21/18 04/05/19 History ondansetron 8 mg PO Q8 PRN 06/21/18 04/05/19 History potassium chloride 10 meq PO TIDM 06/21/18 04/05/19 History raloxifene 60 mg PO QPM 06/21/18 04/05/19 History ranolazine [Ranexa] 500 mg PO BID 06/21/18 04/05/19 History simvastatin 40 mg PO HS 06/21/18 04/05/19 History Calcium 600 + D(3) 1 cap PO BIDM 09/06/18 04/05/19 History pantoprazole 40 mg PO BID 09/23/18 04/05/19 History albuterol sulfate 90 mcg/actuation 2 puffs INH .COMPLEX PRN #18 gm 02/16/19 04/05/19 Rx aerosol inhaler immun glob G(IgG)-pro-IgA 0-50 4 8 gm SQ WEEKLY ml 02/16/19 04/05/19 History gram/20 mL(20 %)-prol-IgA 0-50 mcg/mL subcutaneous soln prednisone 1 mg tablet,delayed 3 mg PO DAILY tab 02/16/19 04/05/19 History release ibuprofen [Advil] 400 mg PO Q6H PRN 04/05/19 04/05/19 History prochlorperazine maleate 10 mg PO Q8H PRN 04/05/19 04/05/19 History [Compazine] Allergies Allergy/AdvReac Type Severity Reaction Status Date / Time No Known Allergies Allergy Verified 04/05/19 15:19 Past Med/Surg History Medical History Acute respiratory failure with hypoxia (Acute) CAD (coronary artery disease), [place] coronary artery With stable angina COPD exacerbation (Acute) Decreased diffusion capacity of lung Full cardiopulmonary resuscitation status (Acute) GERD (gastroesophageal reflux disease) DIET CONTROLLED History of lung cancer DX 1 YEAR AGO. 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 Surgical History Coronary artery bypass grafts x 4 (Chronic 06/13/12) History of arthroscopy RIGHT KNEE MENISCUS History of cholecystectomy History of colonoscopy History of coronary artery bypass graft 4 VESSEL, [facility] 6 YEARS AGO History of hysterectomy History of surgical removal of meniscus of knee Family History Unknown Heart disease Other Family history non-contributory Social History Preferred Language: Mohawk Communication Ability: Effective Nail Artist Required: No Beliefs That Will Affect Care: None marital status: Current Living Situation: Spouse Current Living Situation Comment: and son current occupational status: retired 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 and A total of 10 systems reviewed and were otherwise negative Physical Exam Vital Signs Vital Signs - 24 hr 04/05/19 14:45 04/05/19 14:50 04/05/19 16:30 Temperature 36.5 C Temperature Source Oral Pulse Rate 75 Pulse Rate [Right Finger] 72 65 Pulse Rate from SpO2 Sensor 75 Respiratory Rate 24 20 20 Blood Pressure 131/72 Blood Pressure [Left Arm] 129/79 126/70 Blood Pressure Mean 95 Blood Pressure Mean [Left Arm] 95 88 Blood Pressure Position [Left Arm] Pulse Oximetry 92 94 95 Oxygen Delivery Method Nasal Cannula Oxygen Flow Rate 2 2 04/05/19 18:00 Temperature Temperature Source Pulse Rate Pulse Rate [Right Finger] 60 Pulse Rate from SpO2 Sensor Respiratory Rate 20 Blood Pressure Blood Pressure [Left Arm] 151/56 H Blood Pressure Mean Blood Pressure Mean [Left Arm] 87 Blood Pressure Position [Left Arm] Sitting Pulse Oximetry 95 Oxygen Delivery Method Nasal Cannula Oxygen Flow Rate 2 GENERAL: Awake, alert, chronically ill-appearing, in no distress HENT: Normocephalic, atraumatic. Oropharynx with dry mucous membranes and o therwise unremarkable. EYES: Normal conjunctiva. Sclera non-icteric. NECK: Supple. No nuchal rigidity. FROM. No JVD. RESPIRATORY: Scattered wheezes and rhonchi. CARDIAC: tachycardic rate, normal rhythm. Extremities warm and well perfused. Pulses equal. ABDOMEN: Soft, non-distended. No tenderness to palpation. No rebound or guarding. No masses. RECTAL: Deferred. MUSCULOSKELETAL: Chest examination reveals no tenderness. The back is symmetrical on inspection without obvious abnormality. There is no CVA tenderness to palpation. No joint edema. LOWER EXTREMITIES: Calves are equal size bilaterally and non-tender. No edema. No discoloration. NEURO: Normal sensorium. No sensory or motor deficits noted. SKIN: No rash or jaundice noted. Course Course 1329: Past medical records reviewed. The patient was evaluated in room A03. A complete history and physical exam was performed. 1704: [facility] He will evaluate for further management. 1715: I checked on the patient and updated her on her results. We discussed admission. Administered Medications Aspirin (Ecotrin Ectab) 81 mg PO QDL [facility] Stop: 05/06/19 11:29 Last Admin: 04/06/19 11:03 Dose: 81 mg Documented by: [id number] Doxycycline Hyclate (Vibramycin) 100 mg PO BID RANI Stop: 04/07/19 20:59 Last Admin: 04/06/19 09:11 Dose: 100 mg Documented by: [id number] Admin: 04/05/19 21:38 Dose: 100 mg Documented by: [id number] Heparin Sodium (Porcine) (Heparin Sod 100 Unit/Ml Flush) 5 ml FLUSH PRN PRN PRN Reason: Flush Stop: 05/06/19 00:29 Last Admin: 04/06/19 13:39 Dose: 5 ml Documented by: [id number] Admin: 04/06/19 08:21 Dose: 5 ml Documented by: [id number] Admin: 04/06/19 05:22 Dose: 5 ml Documented by: [id number] Cefepime HCl 2,000 mg/ Syringe 20 mls @ 5.5 mls/min IV BID RANI; Protocol Stop: 04/07/19 20:59 Last Admin: 04/06/19 09:16 Dose: 5.5 mls/min Documented by: [id number] Admin: 04/05/19 21:39 Dose: 5.5 mls/min Documented by: [id number] Ibuprofen (Advil) 400 mg PO Q6H PRN PRN Reason: Pain Stop: 05/05/19 19:44 Last Admin: 04/06/19 06:06 Dose: 400 mg Documented by: [id number] Ioversol (Optiray 320 125ml) 118 ml IV ONCE PRN PRN Reason: Interaction Checking Stop: 04/09/19 15:10 Last Admin: 04/05/19 15:12 Dose: 118 ml Documented by: [id number] Isosorbide Mononitrate (Imdur Extended Rel) 60 mg PO QAM [facility] Stop: 05/06/19 08:59 Last Admin: 04/06/19 09:14 Dose: 60 mg Documented by: [id number] Magnesium Oxide (Mag-Ox) 400 mg PO QAM@1100 [facility] Stop: 05/06/19 10:59 Last Admin: 04/06/19 11:03 Dose: 400 mg Documented by: [id number] Metoprolol Tartrate (Lopressor) 75 mg PO BID [facility] Stop: 05/05/19 20:59 Last Admin: 04/06/19 09:13 Dose: 75 mg Documented by: [id number] Admin: 04/05/19 21:39 Dose: 75 mg Documented by: [id number] Miscellaneous (Order Awaiting Action) 1 ea N/A QS [facility] Stop: 05/06/19 00:00 Last Admin: 04/06/19 09:15 Dose: Not Given Documented by: [id number] Admin: 04/06/19 00:00 Dose: Not Given Documented by: [id number] Miscellaneous (Order Awaiting Action) 1 ea N/A QS [facility] Stop: 05/06/19 00:00 Last Admin: 04/06/19 09:14 Dose: Not Given Documented by: [id number] Admin: 04/06/19 00:00 Dose: Not Given Documented by: [id number] Multivitamins (Multivitamin Tab) 1 tab PO QPM [facility] Stop: 05/05/19 20:59 Last Admin: 04/05/19 21:38 Dose: 1 tab Documented by: [id number] Multivitamins/Minerals (Caltrate Plus) 1 tab PO BIDM [facility] Stop: 05/06/19 07:59 Last Admin: 04/06/19 09:11 Dose: 1 tab Documented by: [id number] Ondansetron HCl (Zofran) 4 mg IV Q8H PRN PRN Reason: Nausea Stop: 05/05/19 19:44 Last Admin: 04/06/19 08:22 Dose: 4 mg Documented by: [id number] Pantoprazole Sodium (Protonix) 40 mg PO BID RANI Stop: 05/05/19 20:59 Last Admin: 04/06/19 09:10 Dose: 40 mg Documented by: [id number] Admin: 04/05/19 21:38 Dose: 40 mg Documented by: [id number] Potassium Chloride (Klor-Con M10) 10 meq PO TIDM RANI Stop: 05/06/19 07:59 Last Admin: 04/06/19 11:04 Dose: 10 meq Documented by: [id number] Admin: 04/06/19 09:13 Dose: 10 meq Documented by: [id number] Prednisone (Prednisone) 3 mg PO DAILY RANI Stop: 05/06/19 08:59 Last Admin: 04/06/19 09:12 Dose: 3 mg Documented by: [id number] Raloxifene HCl (Evista) 60 mg PO QPM RANI Stop: 05/05/19 20:59 Last Admin: 04/05/19 21:38 Dose: 60 mg Documented by: [id number] Ranolazine (Ranexa) 500 mg PO BID RANI Stop: 05/05/19 20:59 Last Admin: 04/06/19 09:10 Dose: 500 mg Documented by: [id number] Admin: 04/05/19 21:38 Dose: 500 mg Documented by: [id number] Simvastatin (Zocor) 40 mg PO HS RANI Stop: 05/05/19 20:59 Last Admin: 04/05/19 21:38 Dose: 40 mg Documented by: [id number] Discontinued Medications Sodium Chloride (Nss 1000ml) 1,000 mls @ 999 mls/hr IV .Q1H1M ONE Stop: 04/05/19 14:30 Last Infusion: 04/05/19 19:47 Dose: 0 mls/hr Documented by: [id number] Admin: 04/05/19 14:43 Dose: 999 mls/hr Documented by: [id number] Acetaminophen (Ofirmev) 1,000 mg in 100 mls @ 400 mls/hr IV NOW STA Stop: 04/05/19 13:45 Last Infusion: 04/05/19 14:58 Dose: 0 mls/hr Documented by: [id number] Admin: 04/05/19 14:43 Dose: 400 mls/hr Documented by: [id number] Prochlorperazine (Compazine) 1 mls @ 1 mls/min IV ONE ONE Stop: 04/05/19 13:35 Last Admin: 04/05/19 14:44 Dose: 1 mls/min Documented by: [id number] Piperacillin Sod/Tazobactam Sod (Zosyn) 4.5 gm in 120 mls @ 240 mls/hr IV NOW ONE Stop: 04/05/19 15:30 Last Infusion: 04/05/19 16:02 Dose: 0 mls/hr Documented by: [id number] Admin: 04/05/19 15:25 Dose: 240 mls/hr Documented by: [id number] Vancomycin HCl 750 mg/ Sodium (Chloride) 515 mls @ 200 mls/hr IV NOW ONE Stop: 04/05/19 17:35 Last Infusion: 04/05/19 18:39 Dose: 0 mls/hr Documented by: [id number] Admin: 04/05/19 16:02 Dose: 200 mls/hr Documented by: [id number] Magnesium Sulfate/Dextrose (Magnesium Sulfate / D5w) 1 gm in 100 mls @ 100 mls/hr IV Q1H RANI Stop: 04/05/19 18:44 Last Infusion: 04/05/19 18:40 Dose: 0 mls/hr Documented by: [id number] Admin: 04/05/19 17:44 Dose: 100 mls/hr Documented by: [id number] Infusion: 04/05/19 17:44 Dose: 0 mls/hr Documented by: [id number] Admin: 04/05/19 17:14 Dose: 100 mls/hr Documented by: [id number] Medical Decision Making Differential Diagnosis Chest pain: Acute coronary syndrome, pulmonary embolus, aortic dissection, musculoskeletal pain, pneumonia, pleural effusion, pneumothorax Medical Records Attestation: I reviewed the patient's medical records. Home Medications Current Medication List: was personally reviewed by me Laboratory Data Attestation: I reviewed the patient's lab results. Result diagrams: 04/06/19 13:38 04/06/19 05:22 Lab Results 04/05/19 04/05/19 04/05/19 Range/Units 13:59 13:59 13:59 WBC 7.96 (4.8-10.8) K/uL RBC 3.95 L (4.2-5.4) M/uL Hgb 12.2 (12.0-16.0) g/dL Hct 37.0 (37-47) % MCV 93.7 (80-100) fL MCH 30.9 (25-34) pg MCHC 33.0 (32-36) g/dL RDW Std Deviation 50.8 H (36.4-46.3) fL RDW Coeff of Marlene 14.9 H (11.5-14.5) % Plt Count 120 L (130-400) K/uL MPV 9.3 (7.4-10.4) fL Immature Gran % (Auto) 0.3 % Neut % (Auto) 76.2 % Lymph % (Auto) 9.9 % Frio % (Auto) 12.6 % Eos % (Auto) 0.9 % Baso % (Auto) 0.1 % Immature Gran # (Auto) 0.02 (0.00-0.02) K/uL Neut # (Auto) 6.07 (1.4-6.5) K/uL Lymph # (Auto) 0.79 L (1.2-3.4) K/uL Frio # (Auto) 1.00 H (0.11-0.59) K/uL Eos # (Auto) 0.07 (0-0.5) K/uL Baso # (Auto) 0.01 (0-0.2) K/uL PT 10.6 (9.0-12.0) Seconds INR 1.0 (0.9-1.1) APTT 48.4 H* (21.0-31.0) Seconds PTT Ratio 1.8 Sodium 137 (136-145) mmol/L Potassium 3.8 (3.5-5.1) mmol/L Chloride 106 (98-107) mmol/L Carbon Dioxide 23 (21-32) mmol/L Anion Gap 8.0 (3-11) BUN 30 H (7-18) mg/dl Creatinine 0.84 (0.6-1.2) mg/dl Est Cr Clr Drug Dosing 37.6 ml/min Est GFR ( Amer) 79.4 Est GFR (Non-Af Amer) 68.5 BUN/Creatinine Ratio 35.7 H (10-20) Glucose 148 H (70-99) mg/dl Lactate (0.4-2.0) mmol/L Calcium 8.8 (8.5-10.1) mg/dl Phosphorus 2.9 (2.5-4.9) mg/dl Magnesium 1.6 L (1.8-2.4) mg/dl Total Bilirubin 0.5 (0.2-1) mg/dl AST 50 H (15-37) U/L ALT 41 (12-78) U/L Alkaline Phosphatase 85 (45-117) U/L Troponin I < 0.015 (0-0.045) ng/ml Total Protein 6.7 (6.4-8.2) gm/dl Albumin 2.6 L (3.4-5.0) gm/dl Globulin 4.1 H (2.5-4.0) gm/dl Albumin/Globulin Ratio 0.6 L (0.9-2) Urine Color Urine Appearance (Clear) Urine pH (4.5-7.5) Ur Specific [place] (1.000-1.030) Urine Protein (Negative) Urine Glucose (UA) (Negative) Urine Ketones (Negative) Urine Blood (Negative) Urine Nitrite (Negative) Urine Bilirubin (Negative) Urine Urobilinogen (Negative) Ur Leukocyte Esterase (Negative) Urine WBC (Auto) (0-5) /hpf Urine RBC (Auto) (0-4) /hpf U Hyaline Cast (Auto) (0-5) /lpf U Epithel Cells (Auto) (0-5) /lpf Urine Bacteria (Auto) (Negative) Influenza Type A (PCR) (Neg) Influenza Type B (PCR) (Neg) 04/05/19 04/05/19 04/05/19 Range/Units 13:59 14:06 14:12 WBC (4.8-10.8) K/uL RBC (4.2-5.4) M/uL Hgb (12.0-16.0) g/dL Hct (37-47) % MCV (80-100) fL MCH (25-34) pg MCHC (32-36) g/dL RDW Std Deviation (36.4-46.3) fL RDW Coeff of Marlene (11.5-14.5) % Plt Count (130-400) K/uL MPV (7.4-10.4) fL Immature Gran % (Auto) % Neut % (Auto) % Lymph % (Auto) % Frio % (Auto) % Eos % (Auto) % Baso % (Auto) % Immature Gran # (Auto) (0.00-0.02) K/uL Neut # (Auto) (1.4-6.5) K/uL Lymph # (Auto) (1.2-3.4) K/uL Frio # (Auto) (0.11-0.59) K/uL Eos # (Auto) (0-0.5) K/uL Baso # (Auto) (0-0.2) K/uL PT (9.0-12.0) Seconds INR (0.9-1.1) APTT (21.0-31.0) Seconds PTT Ratio Sodium (136-145) mmol/L Potassium (3.5-5.1) mmol/L Chloride (98-107) mmol/L Carbon Dioxide (21-32) mmol/L Anion Gap (3-11) BUN (7-18) mg/dl Creatinine (0.6-1.2) mg/dl Est Cr Clr Drug Dosing ml/min Est GFR ( Amer) Est GFR (Non-Af Amer) BUN/Creatinine Ratio (10-20) Glucose (70-99) mg/dl Lactate 2.0 (0.4-2.0) mmol/L Calcium (8.5-10.1) mg/dl Phosphorus (2.5-4.9) mg/dl Magnesium (1.8-2.4) mg/dl Total Bilirubin (0.2-1) mg/dl AST (15-37) U/L ALT (12-78) U/L Alkaline Phosphatase (45-117) U/L Troponin I (0-0.045) ng/ml Total Protein (6.4-8.2) gm/dl Albumin (3.4-5.0) gm/dl Globulin (2.5-4.0) gm/dl Albumin/Globulin Ratio (0.9-2) Urine Color Dark Yellow Urine Appearance Clear (Clear) Urine pH 5.0 (4.5-7.5) Ur Specific [place] 1.023 (1.000-1.030) Urine Protein 1+ H (Negative) Urine Glucose (UA) Negative (Negative) Urine Ketones Negative (Negative) Urine Blood Negative (Negative) Urine Nitrite Negative (Negative) Urine Bilirubin Negative (Negative) Urine Urobilinogen Negative (Negative) Ur Leukocyte Esterase Negative (Negative) Urine WBC (Auto) 1-5 (0-5) /hpf Urine RBC (Auto) 0-4 (0-4) /hpf U Hyaline Cast (Auto) 1-5 (0-5) /lpf U Epithel Cells (Auto) >30 H (0-5) /lpf Urine Bacteria (Auto) Negative (Negative) Influenza Type A (PCR) Neg for Influ A (Neg) Influenza Type B (PCR) Neg for Influ B (Neg) Imaging Data Radiologist's Impression: Radiology results as stated below per my review and the radiologist's interpretation: XR chest 1V portable CLINICAL HISTORY: 73 years-old Female presenting with Sepsis. TECHNIQUE: Portable upright AP view of the chest was obtained. COMPARISON: CT chest from 03/14/2019 and chest x-ray from 10/03/2018. FINDINGS: Left subclavian Mediport has been accessed and terminates in the SVC. Median sternotomy wires and mediastinal surgical clips noted. Atherosclerosis of the aortic arch. Cardiac silhouette top normal in size. Extensive heterogeneity of lung parenchyma. Opacity in the right upper lung is new from prior chest x-ray but correlates with the masslike consolidation amidst bronchiectasis in the r ight upper lobe evident on chest CT. Diffuse reticular nodular opacities also evident correlating with multifocal nodular opacities on chest CT. No large effusion or pneumothorax. Suspected osteopenia. Cholecystectomy clips noted. IMPRESSION: 1. Right upper lung consolidation and multifocal nodular infiltrates as on prior chest CT. Underlying neoplasm and/or metastatic disease not excluded. No n ew infiltrate in comparison to prior CT to raise concern for superimposed pneumonia. Electronically signed by: Vipul Calero M.D. 04/05/2019 2:[address] ANGIOGRAM OF THE CHEST CLINICAL HISTORY: Atypical chest pain SEPSIS COMPARISON STUDY: 03/14/2019, 07/10/2018, chest x-ray dated 04/05/2019 TECHNIQUE: Following the IV administration of 118 mL of [id number]-320, CT a ngiogram of the thorax was performed from the thoracic inlet to the lung bases utilizing the pulmonary embolus protocol. Images are reviewed in the axial, sagittal, and coronal planes. IV contrast was administered without complication. MIP imaging was performed. A dose lowering technique was utilized adhering to the principles of ALARA. CT DOSE: 215.09 mGy.cm FINDINGS: Mediastinal lymph nodes are the upper limits of normal in size, and similar to the preceding examination. The ascending thoracic aorta measures 34 mm. There were no pulmonary artery filling defects to indicate acute pulmonary embolism. No pleural effusions are visualized. There is a progressive area of masslike right lobe consolidation measuring 6 cm. There are right middle lobe bronchiectatic changes with atelectasis. There is a lower lobe bronchial wall thickening with mucous plugging. There are innumerable bilateral pulmonary nodules. An index 1 cm left pleural pulmonary nodule remains unchanged in size. IMPRESSION: 1. No evidence of acute pulmonary embolism 2. Enlarging area of masslike consolidation within the right upper lobe measuring 6 cm. Progressive neoplasm is the diagnosis of exclusion 3. Persistent lower lobe bronchial wall thickening and mucous plugging 4. Innumerable bilateral pulmonary nodules. While the findings could be infectious/inflammatory, metastatic disease is again favored. 3. Electronically signed by: Jose Jackson M.D. 04/05/2019 3:37 PM ECG Data Attestation: I personally reviewed and interpreted this ECG as follows: Indication: + chest pain Rate (beats per minute): 97 Rhythm: + normal sinus ECG Intervals/blocks: + Incomplete right bundle branch block ECG Findings: + Other (QTC 467, QRS 104) Comparison ECG Date: from (10/06/18) Change: no significant change Blood Pressure Blood Pressure Findings: Elevated blood pressure Blood Pressure Disposition: Referred to patients primary care provider KATIE Pollack The patient is a pleasant 73-year-old woman with a past medical history of COPD, lung cancer, CAD status post CABG, hypertension, hyperlipidemia who presents emergency department with chest pain, shortness of breath, cough congestion and feverishness over the past several days per HPI. On arrival the patient is uncomfortable but no acute distress, with temperature of 37.9, heart rate in the 90s and vital signs otherwise stable. The patient was 88% on room air and the patient is not on oxygen at home. She appears clinically dry. She has scant intermittent wheezes. WBC, H/H within normal limits. Platelets 120 similar to prior range of values. Chemistry without acidosis. BUN/creatinine> 30 consistent with the patient's clinically dry appearance. Lactate within normal limits at 2.0. Magnesium 1.6 with repletion provided. AST 58 similar to prior range of values. Electrolytes and LFTs otherwise unremarkable. Troponin negative/undetectable. UA negative for infection. Flu negative. Chest x-ray with right upper lobe consolidative process further characterized on CT suspicious for malignancy though infection is also possible. CT was negative for PE. Given the patient's fever in the setting of her history of cancer on chemo will treat with broad-spectrum antibiotics. Patient was feel improved after initial IV fluid hydration, APAP and antibiotics. He is agreeable for admission. Case was discussed with Dr. Martines, [facility] hospitalist, who will evaluate the patient for admission. Impression & Plan Pneumonia, Lung cancer, Hypoxia, Dehydration Discharge Plan Visit Data *Final* Discharge Date/Time: 04/05/19 19:20 Chief Complaint: Chest Pain Stated Complaint: CHEST PAIN, NAUSEA ED Provider: Woody Wilkinson Discharge Problem: Pneumonia, Lung cancer, Hypoxia, Dehydration Patient Disposition: Admitted As Inpatient Discharge Instructions Interventions: ED Discharge Assessment Last Done: 04/05/19 19:20 Discharge Problem: Pneumonia Qualifiers: Pneumonia type: due to unspecified organism Laterality: right Lung location: unspecified part of lung Qualified Code(s): J18.9 - Pneumonia, unspecified organism Lung cancer Qualifiers: Laterality: unspecified laterality Lung location: unspecified part of lung Qualified Code(s): C34.90 - Malignant neoplasm of unspecified part of unspecified bronchus or lung The scribe's documentation has been prepared under my direction and personally reviewed by me in its entirety. I confirm that the note above accurately reflects all work, treatment, procedures, and medical decision making performed by me.
[2019-04-05] MEDS: MAGNESIUM SULFATE / D5W 1 GM/100 ML BAG IV SCH ×2 (17:14→17:44)
--- NOTE | 2019-04-05 18:29 | History & Physical Report ---
Date of Service April 05, 2019 Assessment & Plan (1) Cough: 73-year-old female was admitted on 05 April 2019 for cough and chest pain. Cough, chest pain: Over past 48 hours. Denies subjective fever or SOB. No obvious evidence of infiltrate on imaging, though she is immunosuppressed both at baseline and on chemotherapy. Will cover for possible PNA initially. Do not suspect overt ACS. Do think some of the pain is from her tumor burden. - Notable history of COPD and metastatic right upper lobe lung NSCC. - Previous ANTONIETTA infection (2013) and aspergillus. Seen by ID previously. - In ED, borderline febrile, not tachycardic, briefly tachypneic, relatively normal BP and SpO2 94% on 2L NC. WBC 8. Influenza negative. CTA chest notes no evidence of PE, concerns for progressive neoplasm, persistent bronchial wall thickening and mucous plugging, and numerous pulmonary nodules. No effusion or infiltrate noted. Blood culture sent. TnI negative. EKG NSR 97 with RBBB. - In ED, treated with normal saline IVF, Tylenol, Compazine, and started on vancomycin plus Zosyn. - Will cover with cefepime and doxycycline empirically. Check nasal MRSA. Await cultures, try to get sputum culture if possible. Consult hemeonc. Thrombocytopenia: Admit platelets 120. History of same. No obvious evidence of significant bleeding, though does have some mild epistaxis. Monitor for now. Hypomagnesemia: Admit Mg 1.6. At home is on magnesium daily. In ED, given 1 gm of magnesium IV. - Will recheck in a.m. Ongoing medical issues: - HTN, HLD, CAD, CABG (2010): Continue home aspirin, Imdur, metoprolol, ranolazine, simvastatin. - Immune deficiency disorder, Sjogren syndrome, autoimmune hepatitis: At home is on Hizentra weekly (last on 06Dec). Minimal AST elevation here. Continue home cevimeline and prednisone as well. - GERD: Continue home pantoprazole. - Cachexia: Admit albumin 2.6. Ordered boost shakes. - Osteoporosis: Continue home ranolazine. - History of gastric mass, large B-cell lymphoma. Code status: DNR/DNI (per discussion today). Diet: Regular. DVT prophy: Will hold chemical prophy due to mild epistaxis. SCDs ordered. PT/OT: Deferred. Disbo: Admit to med surg. (2) Chest pain: (3) COPD (chronic obstructive pulmonary disease): (4) Malignant neoplasm of upper lobe of lung: (5) Thrombocytopenia: (6) Hypomagnesemia: (7) HTN (hypertension): (8) Hyperlipemia: (9) CAD, multiple vessel: (10) Coronary artery bypass grafts x 4: (11) Immune deficiency disorder: (12) Sjogren's disease: (13) Autoimmune hepatitis: (14) GERD (gastroesophageal reflux disease): (15) Cachexia: (16) Osteoporosis: History of Present Illness Primary Care Provider: Evin Villalpando MD 73-year-old female says that two days ago (08Dec) after going to a basketball game she developed a dry cough and increased fatigue. Yesterday she says she slept most of the day. She presents today due to the ongoing cough, fatigue, as well as some right upper chest pain with radiation towards the back. Denies any fever or known recent illness, some ongoing nausea but no vomiting or diarrhea. Denies any abdominal pain. She tried some nitroglycerin at home but is not sure that actually helped. No other acute patient concerns. - Of significant note, patient has a history of metastatic non-small cell lung cancer. She is actively undergoing chemotherapy via Dr. Bonilla office. Last round on 27Nov, planned next dose tomorrow (11Dec). She also has a history of immune deficiency disorder, Sjogren's syndrome, and autoimmune hepatitis. - Past medical history includes hypertension, hyperlipidemia, CAD, large B-cell lymphoma, gastric mass, immune deficiency disorder, Sojourn syndrome, autoimmune hepatitis, previous [place] and aspergillus infections, pancytopenia, GERD, epistaxis, TIA, cachexia, oral candidiasis - Past surgical history includes four-vessel CABG, cholecystectomy, hysterectomy, knee repair. - Social history includes prior smoking. Denies alcohol intake. Lives at home with . Allergies Allergy/AdvReac Type Severity Reaction Status Date / Time No Known Allergies Allergy Verified 04/05/19 15:19 Home Medications Home Medications Medication Instructions Recorded Confirmed Type aspirin [Aspir-81] 81 mg PO QDL 06/21/18 04/05/19 History cevimeline 30 mg PO TIDM 06/21/18 04/05/19 History epinephrine [EpiPen] 0.3 mg IM Q3H PRN 06/21/18 04/05/19 History isosorbide mononitrate 60 mg PO QAM 06/21/18 04/05/19 History magnesium 500 mg PO QAM 06/21/18 04/05/19 History metoprolol tartrate 75 mg PO BID 06/21/18 04/05/19 History multivitamin 1 tab PO QPM 06/21/18 04/05/19 History nitroglycerin [Nitrostat] 0.4 mg SUBLINGUAL UD PRN 06/21/18 04/05/19 History ondansetron 8 mg PO Q8 PRN 06/21/18 04/05/19 History potassium chloride 10 meq PO TIDM 06/21/18 04/05/19 History raloxifene 60 mg PO QPM 06/21/18 04/05/19 History ranolazine [Ranexa] 500 mg PO BID 06/21/18 04/05/19 History simvastatin 40 mg PO HS 06/21/18 04/05/19 History Calcium 600 + D(3) 1 cap PO BIDM 09/06/18 04/05/19 History pantoprazole 40 mg PO BID 09/23/18 04/05/19 History albuterol sulfate 90 mcg/actuation 2 puffs INH .COMPLEX PRN #18 gm 02/16/19 04/05/19 Rx aerosol inhaler immun glob G(IgG)-pro-IgA 0-50 4 8 gm SQ WEEKLY ml 02/16/19 04/05/19 History gram/20 mL(20 %)-prol-IgA 0-50 mcg/mL subcutaneous soln prednisone 1 mg tablet,delayed 3 mg PO DAILY tab 02/16/19 04/05/19 History release ibuprofen [Advil] 400 mg PO Q6H PRN 04/05/19 04/05/19 History prochlorperazine maleate 10 mg PO Q8H PRN 04/05/19 04/05/19 History [Compazine] Past Med/Surg History Medical History Acute respiratory failure with hypoxia (Acute) CAD (coronary artery disease), [place] coronary artery With stable angina COPD exacerbation (Acute) Decreased diffusion capacity of lung Full cardiopulmonary resuscitation status (Acute) GERD (gastroesophageal reflux disease) DIET CONTROLLED History of lung cancer DX 1 YEAR AGO. 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 Surgical History Coronary artery bypass grafts x 4 (Chronic 06/13/12) History of arthroscopy RIGHT KNEE MENISCUS History of cholecystectomy History of colonoscopy History of coronary artery bypass graft 4 VESSEL, C 6 YEARS AGO History of hysterectomy History of surgical removal of meniscus of knee Family History Unknown Heart disease Other Family history non-contributory Social History Preferred Language: Portuguese Communication Ability: Effective Reservation Clerk Required: No Beliefs That Will Affect Care: None marital status: Current Living Situation: Spouse Current Living Situation Comment: and son current occupational status: retired 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 Positive generalized fatigue/weakness. Eyes: Denies any visual loss or diplopia ENT: Denies any ear/nose/throat pain or difficulty speaking or swallowing Respiratory: Positive cough. Denies dyspnea or hemoptysis. Cardiovascular: Denies any chest pain or feeling of edema Gastrointestinal: Denies any abdominal pain. Positive nausea. Denies vomiting or diarrhea. Musculoskeletal: Denies any acute extremity pains, myalgias, or focal weakness Skin: Denies any known acute rashes or lesions Neuro: Denies any headache, acute focal weakness or numbness, or difficulties with speech or swallow. Physical Exam Physical Exam: GENERAL: Awake, alert, appears cachectic but is speaking easily in full sentences and does not appear in immediate distress. HENT: Normocephalic, atraumatic. Oropharynx dry. EYES: Normal conjunctiva. Sclera non-icteric. NECK: Inspection normal. Supple and full ROM. No nuchal rigidity. CARDIAC: +S1S2 RRR, no murmurs. RESPIRATORY: Decreased breath sounds throughout. No wheezes or rales. Normal respiratory effort. Presently on room air. GI: +BS, soft, non-distended. No tenderness to palpation. No rebound or guarding. Cachectic. EXTREMITIES: No pedal edema or calf tenderness. Moving all extremities naturally and easily. Multiple areas of bruising on the extremities. NEURO: No gross neuro deficits. Lines: Left upper chest Mediport accessed. Results & Data Vital Signs (Past 12 Hours) Vital Signs Temp Pulse Pulse Resp BP BP Pulse Ox 04/05/19 18:00 60 20 151/56 H 95 04/05/19 16:30 65 20 126/70 95 04/05/19 14:50 36.5 C 72 20 129/79 94 04/05/19 14:45 75 24 131/72 92 04/05/19 14:31 78 23 92 04/05/19 14:30 77 26 H 146/84 H 92 04/05/19 14:16 84 25 H 93 04/05/19 14:15 83 26 H 140/84 93 04/05/19 14:12 88 20 93 04/05/19 14:11 83 20 150/86 H 93 04/05/19 14:10 89 25 H 04/05/19 14:00 89 27 H 93 04/05/19 13:50 89 24 04/05/19 13:44 93 04/05/19 13:40 88 25 H 95 04/05/19 13:18 93 04/05/19 13:10 37.9 C H 98 H 20 145/85 H 88 L Laboratory Results 04/05/19 04/05/19 04/05/19 Range/Units 14:12 14:06 13:59 WBC (4.8-10.8) K/uL RBC (4.2-5.4) M/uL Hgb (12.0-16.0) g/dL Hct (37-47) % MCV (80-100) fL MCH (25-34) pg MCHC (32-36) g/dL RDW Std Deviation (36.4-46.3) fL RDW Coeff of Marlene (11.5-14.5) % Plt Count (130-400) K/uL MPV (7.4-10.4) fL Immature Gran % (Auto) % Neut % (Auto) % Lymph % (Auto) % [place] % (Auto) % Eos % (Auto) % Baso % (Auto) % Immature Gran # (Auto) (0.00-0.02) K/uL Neut # (Auto) (1.4-6.5) K/uL Lymph # (Auto) (1.2-3.4) K/uL [place] # (Auto) (0.11-0.59) K/uL Eos # (Auto) (0-0.5) K/uL Baso # (Auto) (0-0.2) K/uL PT (9.0-12.0) Seconds INR (0.9-1.1) APTT (21.0-31.0) Seconds PTT Ratio Sodium (136-145) mmol/L Potassium (3.5-5.1) mmol/L Chloride (98-107) mmol/L Carbon Dioxide (21-32) mmol/L Anion Gap (3-11) BUN (7-18) mg/dl Creatinine (0.6-1.2) mg/dl Est Cr Clr Drug Dosing ml/min Est GFR ( Amer) Est GFR (Non-Af Amer) BUN/Creatinine Ratio (10-20) Glucose (70-99) mg/dl Lactate 2.0 (0.4-2.0) mmol/L Calcium (8.5-10.1) mg/dl Phosphorus (2.5-4.9) mg/dl Magnesium (1.8-2.4) mg/dl Total Bilirubin (0.2-1) mg/dl AST (15-37) U/L ALT (12-78) U/L Alkaline Phosphatase (45-117) U/L Troponin I (0-0.045) ng/ml Total Protein (6.4-8.2) gm/dl Albumin (3.4-5.0) gm/dl Globulin (2.5-4.0) gm/dl Albumin/Globulin Ratio (0.9-2) Urine Color Dark Yellow Urine Appearance Clear (Clear) Urine pH 5.0 (4.5-7.5) Ur Specific Ocate 1.023 (1.000-1.030) Urine Protein 1+ H (Negative) Urine Glucose (UA) Negative (Negative) Urine Ketones Negative (Negative) Urine Blood Negative (Negative) Urine Nitrite Negative (Negative) Urine Bilirubin Negative (Negative) Urine Urobilinogen Negative (Negative) Ur Leukocyte Esterase Negative (Negative) Urine WBC (Auto) 1-5 (0-5) /hpf Urine RBC (Auto) 0-4 (0-4) /hpf U Hyaline Cast (Auto) 1-5 (0-5) /lpf U Epithel Cells (Auto) >30 H (0-5) /lpf Urine Bacteria (Auto) Negative (Negative) Influenza Type A (PCR) Neg for Influ A (Neg) Influenza Type B (PCR) Neg for Influ B (Neg) 04/05/19 04/05/19 04/05/19 Range/Units 13:59 13:59 13:59 WBC 7.96 (4.8-10.8) K/uL RBC 3.95 L (4.2-5.4) M/uL Hgb 12.2 (12.0-16.0) g/dL Hct 37.0 (37-47) % MCV 93.7 (80-100) fL MCH 30.9 (25-34) pg MCHC 33.0 (32-36) g/dL RDW Std Deviation 50.8 H (36.4-46.3) fL RDW Coeff of Marlene 14.9 H (11.5-14.5) % Plt Count 120 L (130-400) K/uL MPV 9.3 (7.4-10.4) fL Immature Gran % (Auto) 0.3 % Neut % (Auto) 76.2 % Lymph % (Auto) 9.9 % [place] % (Auto) 12.6 % Eos % (Auto) 0.9 % Baso % (Auto) 0.1 % Immature Gran # (Auto) 0.02 (0.00-0.02) K/uL Neut # (Auto) 6.07 (1.4-6.5) K/uL Lymph # (Auto) 0.79 L (1.2-3.4) K/uL [place] # (Auto) 1.00 H (0.11-0.59) K/uL Eos # (Auto) 0.07 (0-0.5) K/uL Baso # (Auto) 0.01 (0-0.2) K/uL PT 10.6 (9.0-12.0) Seconds INR 1.0 (0.9-1.1) APTT 48.4 H* (21.0-31.0) Seconds PTT Ratio 1.8 Sodium 137 (136-145) mmol/L Potassium 3.8 (3.5-5.1) mmol/L Chloride 106 (98-107) mmol/L Carbon Dioxide 23 (21-32) mmol/L Anion Gap 8.0 (3-11) BUN 30 H (7-18) mg/dl Creatinine 0.84 (0.6-1.2) mg/dl Est Cr Clr Drug Dosing 37.6 ml/min Est GFR ( Amer) 79.4 Est GFR (Non-Af Amer) 68.5 BUN/Creatinine Ratio 35.7 H (10-20) Glucose 148 H (70-99) mg/dl Lactate (0.4-2.0) mmol/L Calcium 8.8 (8.5-10.1) mg/dl Phosphorus 2.9 (2.5-4.9) mg/dl Magnesium 1.6 L (1.8-2.4) mg/dl Total Bilirubin 0.5 (0.2-1) mg/dl AST 50 H (15-37) U/L ALT 41 (12-78) U/L Alkaline Phosphatase 85 (45-117) U/L Troponin I < 0.015 (0-0.045) ng/ml Total Protein 6.7 (6.4-8.2) gm/dl Albumin 2.6 L (3.4-5.0) gm/dl Globulin 4.1 H (2.5-4.0) gm/dl Albumin/Globulin Ratio 0.6 L (0.9-2) Urine Color Urine Appearance (Clear) Urine pH (4.5-7.5) Ur Specific [place] (1.000-1.030) Urine Protein (Negative) Urine Glucose (UA) (Negative) Urine Ketones (Negative) Urine Blood (Negative) Urine Nitrite (Negative) Urine Bilirubin (Negative) Urine Urobilinogen (Negative) Ur Leukocyte Esterase (Negative) Urine WBC (Auto) (0-5) /hpf Urine RBC (Auto) (0-4) /hpf U Hyaline Cast (Auto) (0-5) /lpf U Epithel Cells (Auto) (0-5) /lpf Urine Bacteria (Auto) (Negative) Influenza Type A (PCR) (Neg) Influenza Type B (PCR) (Neg) Medications Administered Magnesium Sulfate/Dextrose (Magnesium Sulfate / D5w) 1 gm in 100 mls @ 100 mls/hr IV Q1H RANI Stop: 04/05/19 18:44 Last Admin: 04/05/19 17:44 Dose: 100 mls/hr Documented by: [id number] Infusion: 04/05/19 17:44 Dose: 0 mls/hr Documented by: [id number] Admin: 04/05/19 17:14 Dose: 100 mls/hr Documented by: [id number] Ioversol (Optiray 320 125ml) 118 ml IV ONCE PRN PRN Reason: Interaction Checking Stop: 04/09/19 15:10 Last Admin: 04/05/19 15:12 Dose: 118 ml Documented by: [id number] Discontinued Medications Sodium Chloride (Nss 1000ml) 1,000 mls @ 999 mls/hr IV .Q1H1M ONE Stop: 04/05/19 14:30 Last Admin: 04/05/19 14:43 Dose: 999 mls/hr Documented by: [id number] Acetaminophen (Ofirmev) 1,000 mg in 100 mls @ 400 mls/hr IV NOW STA Stop: 04/05/19 13:45 Last Infusion: 04/05/19 14:58 Dose: 0 mls/hr Documented by: [id number] Admin: 04/05/19 14:43 Dose: 400 mls/hr Documented by: [id number] Prochlorperazine (Compazine) 1 mls @ 1 mls/min IV ONE ONE Stop: 04/05/19 13:35 Last Admin: 04/05/19 14:44 Dose: 1 mls/min Documented by: [id number] Piperacillin Sod/Tazobactam Sod (Zosyn) 4.5 gm in 120 mls @ 240 mls/hr IV NOW ONE Stop: 04/05/19 15:30 Last Infusion: 04/05/19 16:02 Dose: 0 mls/hr Documented by: [id number] Admin: 04/05/19 15:25 Dose: 240 mls/hr Documented by: [id number] Vancomycin HCl 750 mg/ Sodium (Chloride) 515 mls @ 200 mls/hr IV NOW ONE Stop: 04/05/19 17:35 Last Admin: 04/05/19 16:02 Dose: 200 mls/hr Documented by: [id number] Code Status & VTE Plan Code Status DNR/DNI VTE Prophylaxis Plan VTE Prophylaxis will be ordered: Yes Supervising Physician Co-Signing Physician Notes I personally interviewed and examined the patient. I agree with history of present illness and physical exam mentioned above, I also performed my own history taking and examination. Past medical history and review of system has been obtained by myself I reviewed all pertinent labs and studies Reviewed current medications I discussed and formulated of the assessment and plan mentioned above. Please refer to the Summary mentioned below. 73-year-old female with past medical history of non-small cell lung cancer currently on chemotherapy, pancytopenia, essential hypertension, dyslipidemia, COPD, Marta's disease, CAD and history of B-cell lymphoma currently in remission. Patient also has past medical history of Mycobacterium AVM intracellular infection in 2013, aspergillosis that was not treated, possible colonization/contamination, hypogammaglobinemia and immunoglobulin injections. She presented to the ED today with right-sided chest pain and dry cough. She said that her sickness started after she attended A basketball game of her grandson on 04/03/2019. She was supposed to have had chemotherapy on 04/06/2019, but because of her cough and right-sided chest pain she decided to come to the hospital to be checked. CTA revealed no pulmonary embolism, enlarging area of masslike consolidation right upper lobe measuring 6 cm most likely contributing to her chest pain, persistent lower lobe bronchial wall thickening and mucous plugging, and numerous bilateral pulmonary nodules most likely metastatic in nature but also could be infectious in the setting of her immune compromised status due to hypogammaglobinemia. Patient was admitted to telemetry, started on doxycycline and cefepime. Giving her immunocompromised status we will also check her for atypical pneumonia caused by different microorganisms, obtain sputum culture and sensitivity, urine Legionella, will order Fungitell, D galactomannan, fungal smear of sputum, urine histo, if needed will consult infectious disease as above and j2ee developer, but will hold off for now and see if she improves on current regimen of antibiotic. Although progression of her lung cancer is the most likely cause of chest pain and metastasis would be the most likely underlying etiology of her pulmonary nodules but giving her immune compromised status and previous multiple different organisms infection of her lungs will consult pulmonary to consider bronchoscopy and deep sample cultures from her lungs. We will also consult Dr. Britton giving her worsening and progressive cancer. General Appearance: Frail elderly female in mild acute distress Eyes: normal Sclerae, extraocular muscle intact ENT: hearing grossly normal Neck: supple Respiratory/Chest: normal air entry bilateral ,no respiratory distress, no accessory muscle use Cardiovascular: regular rate, rhythm, no murmur Abdomen: non tender, soft, no masses Extremities: no edema musculoskeletal: no significant swelling or inflammation in any joint Neurologic/Psychiatric: Awake alert oriented times place and person moves all extremities sensation intact cranial nerves II-12 appear to be intact Skin: normal color, warm/dry, no rash Albertina Cleary MD, [facility] hospitalist group Resident Activity Tracking Resident Involvement: Resident Care Provided Care Provided: Adult Hospital Medicine (1) COPD (chronic obstructive pulmonary disease) COPD type: COPD with acute lower respiratory infection Qualified Code(s): J44.0 - Chronic obstructive pulmonary disease with acute lower respiratory infection
[2019-04-05] MEDS ORDERED: ALBUTEROL HFA 8 GM INHALER INH PRN (19:45)
[2019-04-05] MEDS ORDERED: NITROGLYCERIN SL 0.4 MG/TAB TAB SL PRN (19:45)
[2019-04-05] MEDS ORDERED: ACETAMINOPHEN 325 MG TAB PO PRN (19:45)
[2019-04-05] MEDS ORDERED: PROCHLORPERAZINE 10 MG in SYRINGE 8 ML IV PRN (19:45)
[2019-04-05] MEDS ORDERED: IBUPROFEN 200 MG TAB PO PRN (19:45)
[2019-04-05] MEDS: PANTOprazole 40 MG TAB PO SCH (21:38)
[2019-04-05] MEDS: RANOLAZINE 500 MG ER TAB PO SCH (21:38)
[2019-04-05] MEDS: MULTIVITAMIN TAB PO SCH (21:38)
[2019-04-05] MEDS: RALOXIFENE HCL 60 MG TAB PO SCH (21:38)
[2019-04-05] MEDS: SIMVASTATIN 40 MG TAB PO SCH (21:38)
[2019-04-05] MEDS: DOXYCYCLINE HYCLATE 100 MG CAP PO SCH (21:38)
[2019-04-05] MEDS: CEFEPIME 2,000 MG in SYRINGE 7.5 ML IV SCH (21:39)
[2019-04-05] MEDS: METOPROLOL TARTRATE 25 MG TAB PO SCH (21:39)
[2019-04-06] MEDS: HEPARIN 100 UNIT/ML 5ML FLUSH FLUSH PRN ×4 (05:22→18:15)
[2019-04-06 06:06] LABS: Basophils # (auto) 0.01 K/uL (0-0.2); Basophils % (auto) 0.2 %; Eosinophils # (auto) 0.11 K/uL (0-0.5); Eosinophils % (auto) 2.4 %; Hematocrit (blood only) 32.3 % (37-47); Hemoglobin 10.6 g/dL (12.0-16.0); Immature Granulocytes # (auto) 0.01 K/uL (0.00-0.02); Immature Granulocytes % (auto) 0.2 %; Lymphocytes # (auto) 0.65 K/uL (1.2-3.4); Lymphocytes % (auto) 14.4 %; Mean Corpuscular Hemoglobin 30.5 pg (25-34); Mean Corpuscular Hgb Conc 32.8 g/dL (32-36); Mean Corpuscular Volume 92.8 fL (80-100); Mean Platelet Volume 9.8 fL (7.4-10.4); Monocytes # (auto) 0.69 K/uL (0.11-0.59); Monocytes % (auto) 15.3 %; Neutrophils # (auto) 3.05 K/uL (1.4-6.5); Neutrophils % (auto) 67.5 %; Platelet Count 100 K/uL (130-400); RDW Coefficient of Variation 15.3 % (11.5-14.5); Red Blood Count 3.48 M/uL (4.2-5.4); White Blood Count 4.52 K/uL (4.8-10.8)
[2019-04-06 06:39] LABS: BUN Creatinine Ratio 29.6 (10-20); Calcium 7.8 mg/dl (8.5-10.1); Creatinine Clr Calc Pharmacy 46.5 ml/min; Est GFR (African American) 100.4; Est GFR (Non-African American) 86.6; Magnesium 2.2 mg/dl (1.8-2.4); Potassium 4.2 mmol/L (3.5-5.1)
[2019-04-06] MEDS: ONDANSETRON INJ 2 MG/ML 2 ML VIAL IV PRN ×2 (08:22→18:14)
[2019-04-06] MEDS: RANOLAZINE 500 MG ER TAB PO SCH ×2 (09:10→20:43)
[2019-04-06] MEDS: PANTOprazole 40 MG TAB PO SCH ×2 (09:10→20:43)
[2019-04-06] MEDS: CALCIUM 600MG + VIT D 400 IU TAB PO SCH ×2 (09:11→18:36)
[2019-04-06] MEDS: DOXYCYCLINE HYCLATE 100 MG CAP PO SCH ×2 (09:11→20:43)
[2019-04-06] MEDS: predniSONE 1 MG TAB PO SCH (09:12)
[2019-04-06] MEDS: METOPROLOL TARTRATE 25 MG TAB PO SCH ×2 (09:13→20:43)
[2019-04-06] MEDS: POTASSIUM CHLORIDE 10 MEQ TABCR PO SCH ×3 (09:13→18:36)
[2019-04-06] MEDS: ISOSORBIDE MONO EXTENDED REL 60 MG TABCR PO SCH (09:14)
[2019-04-06] MEDS: CEFEPIME 2,000 MG in SYRINGE 7.5 ML IV SCH ×2 (09:16→20:46)
[2019-04-06] MEDS: MAGNESIUM OXIDE 400 MG TAB PO SCH (11:03)
[2019-04-06] MEDS: ASPIRIN 81 MG ECTAB PO SCH (11:03)
--- NOTE | 2019-04-06 12:53 | Hospitalist Progress Note ---
Date of Service April 06, 2019 Assessment & Plan (1) Malignant neoplasm of upper lobe of lung: (2) Chest pain: (3) Cough: Cough, chest pain, malignant neoplasm of the lung Ms. Vega developed a cough over the couple of days prior to arrival. Notable history of COPD and metastatic right upper lobe lung NSCC. Previous ANTONIETTA infection (2013) and aspergillus. Seen by ID previously. No further chest pain today - Influenza negative. CTA chest notes no evidence of PE, concerns for prog ressive neoplasm, persistent bronchial wall thickening and mucous plugging, and numerous pulmonary nodules. No effusion or infiltrate noted. - Blood culture sent pending. -TnI negative. EKG NSR 97 with RBBB. - Continue cefepime and doxycycline - no over pneumonia on CT however nodules could have infectious/inflammatory etiology - Reference labs for possible fungal infection including aspergillus sent on admission - consult pulmonology - consult heme/onc - consult palliative care (4) COPD (chronic obstructive pulmonary disease): Continue home inhalers (5) Thrombocytopenia: Admit platelets 120, now 100,00. History of same. No obvious evidence of significant bleeding (6) HTN (hypertension): (7) Hyperlipemia: (8) Coronary artery bypass grafts x 4: (9) CAD, multiple vessel: HTN, hld, CAD, history of CABG: Continue ASA, isosorbide, metoprolol, ranolazine, simvastatin,prn nitroglycerin (10) Macular rash: started prior to arrival, no pruritis or pain Benedryl prn (11) Sjogren's disease: (12) Autoimmune hepatitis: (13) Immune deficiency disorder: Sjogren's, autoimmune hepatitis, immune deficiency disorder: At home is on Hizentra weekly (last on 06Dec). Minimal AST elevation here. Continue home cevimeline and prednisone as well. (14) Cachexia: BMI 18.4 Boost, news videographer consult (15) Osteoporosis: continue home ranolazine (16) Hypomagnesemia: resolved (17) Anemia: Hgb decreased almost 2g since admission Will repeat this afternoon No obvious s/s of bleeding (18) DVT prophylaxis: hold heparin subq for drop in hgb, if hbg stable tomorrow will initiate dvt chemoproph SCDs Supervising Physician Co-Signing Physician Notes I supervised Shelley Vaca NP on this patient's care. I examined the patient today independently of her. I discussed the plan of care with her with the plan being as written in her note except for any following changes/exceptions: None. Rash is improving. Unclear cause as no new medication. Possibly paraneoplastic? If cleared by oncology, will trial prednisone. Subjective Ms. Vega is no longer experiencing chest pain today. She has a cough with minimal sputum. She appears comfortable on RA. A rash has increased over the night. She first noticed a spot before coming into the hospital but now she has patches over her face upper torso, arms and thighs. They are not pruritic or painful. The rash on her face has improved since this morning. She has not had any airway compromise or swelling of her tongue or lips. ROS Constitutional: no chills, aches, sweats or fever Respiratory: see HPI Cardiac: no chest pain, palpitations, edema, orthopnea or lightheadedness GI: no abdominal pain, nausea, vomiting, diarrhea or constipation : no dysuria or hesitancy Extremities: no joint pain or weakness Skin: See HPI All other systems reviewed and negative Physical Exam Physical Exam: General: no distress Eyes: normal inspection, PERLL Respiratory: chest non tender, clear to auscultation, normal breath sounds, no respiratory distress, no accessory muscle use Cardiac: regular rate and rhythm, no rub or gallop, no murmur, no edema, no jvd GI/: active bowel sounds, no abd pain or tenderness, soft, non distended Extremities: normal range of motion, normal strength, non tender Neuro/Psych: alert and oriented x 3, normal mood and affect Skin: normal color, dry Results & Data Vital Signs (Past 12 Hours) Vital Signs Temp Pulse Resp BP BP Pulse Ox 04/06/19 11:23 36.9 C 96 H 20 173/93 H 97 04/06/19 07:06 36.8 C 69 18 152/78 H 95 04/06/19 05:50 36.8 C 72 18 155/96 H 93 04/06/19 03:56 37.1 C 71 17 163/68 H 95 PG Care Time/CCT Total # of Minutes Spent Total Time Spent with Patient: Total time spent is greater than 50% in coordination of care (as documented) at patient's floor/unit and/or counseling patient: (1) Anemia Anemia type: unspecified type Qualified Code(s): D64.9 - Anemia, unspecified (2) COPD (chronic obstructive pulmonary disease) COPD type: COPD with acute lower respiratory infection Qualified Code(s): J44.0 - Chronic obstructive pulmonary disease with acute lower respiratory infection
[2019-04-06] MEDS ORDERED: predniSONE 20 MG TAB PO STA (16:28)
--- NOTE | 2019-04-06 16:36 | Palliative Care Consultation ---
Date of Consultation April 06, 2019 Assessment & Plan (1) Goals of care, counseling/discussion: -Ms. Vega is a case 73 year old female patient with non small cell lung cancer who presented to the hospital with right sided chest pain. Past medical history includes hypertension, hyperlipidemia, CAD, large B-cell lymphoma, gastric mass, immune deficiency disorder, Sojourn syndrome, autoimmune hepatitis, previous SD and aspergillus infections, pancytopenia, GERD, epistaxis, TIA, cachexia, and COPD. Workup revealed that this chest pain was due to increased tumor burden, and the pain has since resolved. Patient also having some hypoxia which also has resolved and she is now on room air. Patient is under the care of Dr. De La O for oncology. She has tried several chemo regimens in the past and has failed them for multiple reasons including thrombocytopenia and general illness. At one point patient failed to follow up and it led to tumor progression. Dr. De La O notes in his most recent documentation that he questions the utility of continuing chemotherapy, but patient was struggling with not continuing some sort of therapy. Palliative care is now consulted to discuss goals of care. -Met with patient in room 460-1. She is pleasantly talkative, oriented x4. Patient denies any complaints of pain, SOB, N/V. Does have this rash, but states she cannot even feel that it is there, only saw it when she looked in the mirror. -Patient states that she feels too well to not take any sort of chemotherapy, but she also understands that chemo is its own beast and comes with side effects. patient acknowledges that she has not tolerated chemotherapy well at all in the past. -Patient states that Dr. Blackman did stop by here in the hospital and mentioned that there could be other medications to be offered. We talked about some questions for her to ask the oncologist at her next appointment regarding further therapy-- what the goal of therapy would be, what her prognosis is with and without chemo, what side effects could she expect, etc. She found this to be helpful. -Patient stated that she felt like if she wasn't doing chemo, then she was giving up. We talked through this and she is feeling better. Patient has a strong justice in God and states that she is not afraid to , but is just not ready yet. -At home, patient is actually doing fairly well from what she describes. Her helps with household tasks, but she is still able to care for herself and perform ADL. She is not on oxygen. -Patient has no symptoms. -Patient is interested in following up with Dr. Ruano as an outpatient to continue supportive care and discussion about goals. Gave her information to set up appointment. -We will follow while patient is here. (2) Chest pain: (3) Malignant neoplasm of upper lobe of lung: (4) Hypoxia: (5) Macular rash: History of Present Illness Reason for Consultation: Goals of care Requesting Physician: MARCI Brown Attending Physician: Lamonte Bobo MD History of Present Illness Ms. Vega is a case 73 year old female patient with non small cell lung cancer who presented to the hospital with right sided chest pain. Past medical history includes hypertension, hyperlipidemia, CAD, large B-cell lymphoma, gastric mass, immune deficiency disorder, Sojourn syndrome, autoimmune hepatitis, previous SD and aspergillus infections, pancytopenia, GERD, epistaxis, TIA, cachexia, and COPD. Workup revealed that this chest pain was due to increased tumor burden, and the pain has since resolved. Patient also having some hypoxia which also has resolved and she is now on room air. Patient is under the care of Dr. De La O for oncology. She has tried several chemo regimens in the past and has failed them for multiple reasons including thrombocytopenia and general illness. At one point patient failed to follow up and it led to tumor p rogression. Dr. De La O notes in his most recent documentation that he questions the utility of continuing chemotherapy, but patient was struggling with not continuing some sort of therapy. Palliative care is now consulted to discuss goals of care. Thank you kindly for this consult. Palliative care team will follow as needed. Allergies Allergy/AdvReac Type Severity Reaction Status Date / Time No Known Allergies Allergy Verified 04/05/19 15:19 Home Medications Home Medications Medication Instructions Recorded Confirmed Type aspirin [Aspir-81] 81 mg PO QDL 06/21/18 04/05/19 History cevimeline 30 mg PO TIDM 06/21/18 04/05/19 History epinephrine [EpiPen] 0.3 mg IM Q3H PRN 06/21/18 04/05/19 History isosorbide mononitrate 60 mg PO QAM 06/21/18 04/05/19 History magnesium 500 mg PO QAM 06/21/18 04/05/19 History metoprolol tartrate 75 mg PO BID 06/21/18 04/05/19 History multivitamin 1 tab PO QPM 06/21/18 04/05/19 History nitroglycerin [Nitrostat] 0.4 mg SUBLINGUAL UD PRN 06/21/18 04/05/19 History ondansetron 8 mg PO Q8 PRN 06/21/18 04/05/19 History potassium chloride 10 meq PO TIDM 06/21/18 04/05/19 History raloxifene 60 mg PO QPM 06/21/18 04/05/19 History ranolazine [Ranexa] 500 mg PO BID 06/21/18 04/05/19 History simvastatin 40 mg PO HS 06/21/18 04/05/19 History Calcium 600 + D(3) 1 cap PO BIDM 09/06/18 04/05/19 History pantoprazole 40 mg PO BID 09/23/18 04/05/19 History albuterol sulfate 90 mcg/actuation 2 puffs INH .COMPLEX PRN #18 gm 02/16/19 04/05/19 Rx aerosol inhaler immun glob G(IgG)-pro-IgA 0-50 4 8 gm SQ WEEKLY ml 02/16/19 04/05/19 History gram/20 mL(20 %)-prol-IgA 0-50 mcg/mL subcutaneous soln prednisone 1 mg tablet,delayed 3 mg PO DAILY tab 02/16/19 04/05/19 History release ibuprofen [Advil] 400 mg PO Q6H PRN 04/05/19 04/05/19 History prochlorperazine maleate 10 mg PO Q8H PRN 04/05/19 04/05/19 History [Compazine] Patient History Medical History Acute respiratory failure with hypoxia (Acute) CAD (coronary artery disease), [place] coronary artery With stable angina COPD exacerbation (Acute) Decreased diffusion capacity of lung Full cardiopulmonary resuscitation status (Acute) GERD (gastroesophageal reflux disease) DIET CONTROLLED History of lung cancer DX 1 YEAR AGO. 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 Surgical History Coronary artery bypass grafts x 4 (Chronic 06/13/12) History of arthroscopy RIGHT KNEE MENISCUS History of cholecystectomy History of colonoscopy History of coronary artery [place] [facility] [place] History of hysterectomy History of surgical removal of meniscus of knee Family History Unknown Heart disease Other Family history non-contributory Social History Preferred Language: Singaporean Communication Ability: Effective Reporting Specialist Required: No Beliefs That Will Affect Care: None marital status: Current Living Situation: Spouse Current Living Situation Comment: and son current occupational status: retired 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 Other Information That Helps Us Care for You: No Feels Safe at Home: Yes Safety Concerns: Feels Safe At This Time Smoking Status: Never smoker Second Hand Exposure: No ; Hx Alcohol Use: No Hx Substance Use: No Review of Systems Review of Systems: Const: No weakness ENMT: No dysphagia Resp: + SOB with exertion, + cough Cardio: No chest pain, no edema GI: No abdominal pain, no N/V MS: No musculoskeletal pain(presented with non cardiac chest pain which has resolved Neuro: No confusion Psych: No anxiety, no depression Physical Exam Constitutional: + thin and + frail appearing; no acute distress ENMT: Mouth: + poor dentition (missing teeth "from chemo") Respiratory: normal respiratory effort; no labored breathing room air Cardiovascular: Rate/Rhythm: regular rate and regular rhythm Extremities: no edema Gastrointestinal (Abdomen): Percussion/Palpation: abdomen soft; abdomen nontender Skin: macular rash on arms, upper legs, above top lip and around right eye-- not itchy or painful Neurologic: moves all extremities and awake Psychiatric: A+Ox3, euthymic affect Insight: good insight Judgement: good judgement Results & Data Vital Signs (Past 12 Hours) Vital Signs Temp Pulse Resp BP BP Pulse Ox 04/06/19 14:53 36.6 C 70 18 159/80 H 92 04/06/19 11:23 36.9 C 96 H 20 173/93 H 97 04/06/19 07:06 36.8 C 69 18 152/78 H 95 04/06/19 05:50 36.8 C 72 18 155/96 H 93 Time Spent Midlevel 70 minutes with >50% of the time spent at bedside with patient discussing condition and GOC.
--- NOTE | 2019-04-06 17:10 | Oncology Consultation ---
Date of Consultation April 06, 2019 Assessment & Plan (1) Chest pain: I suspect her chest pain is related to the atelectasis and progressive disease she has by CT. She had no evidence of PE and her symptoms are obviously atypical for a cardiac source. She will need to change her treatment and I will review the situation with Dr. De La O. For now, we can suspend her current therapy, which was due today. I would treat her pain symptomatically. We will make sure she has appropriate outpatient follow up. I brought her rash to the attention of her treating team. I cannot attribute this rash to her cancer directly. Avastin rarely can cause some exfoliative dermatitis, but this is not a typical appearance for that. I wonder if she has a new drug exposure that could explain the rash. I will defer to her primary team, though if we cannot find an answer, might consider a dermatology consultation. Present on Admission?: Yes History of Present Illness Reason for Consultation: Non-small cell lung cancer Right-sided chest pain Attending Physician: Lamonte Bobo MD History of Present Illness Ms. Vega is a 73 year old woman with metastatic non-small cell lung cancer. She is currently being treated with single-agent Avastin. She presented to the ER yesterday with 2 days of dry cough, fatigue, and increasing upper right sided chest pain. The symptoms were not exertional and seemed to worsen with breathing. She had a CTA that was negative for PE but did reveal some progression in her RUL lesion with associated atelectatic change in her RUL. Some of her micronodular disease also appeared modestly progressive. During our exam today, I noted that she had a rash. The lesions are red, flat, and not scaling. She also finds them mildly itchy. She told me she first noticed the rash this morning and did not have a rash prior to admission. She denied any lip swelling, wheezing, or acute shortness of breath, though she is chronically short of breath from her cancer. She denied any other new pain. Allergies Allergy/AdvReac Type Severity Reaction Status Date / Time No Known Allergies Allergy Verified 04/05/19 15:19 Home Medications Home Medications Medication Instructions Recorded Confirmed Type aspirin [Aspir-81] 81 mg PO QDL 06/21/18 04/05/19 History cevimeline 30 mg PO TIDM 06/21/18 04/05/19 History epinephrine [EpiPen] 0.3 mg IM Q3H PRN 06/21/18 04/05/19 History isosorbide mononitrate 60 mg PO QAM 06/21/18 04/05/19 History magnesium 500 mg PO QAM 06/21/18 04/05/19 History metoprolol tartrate 75 mg PO BID 06/21/18 04/05/19 History multivitamin 1 tab PO QPM 06/21/18 04/05/19 History nitroglycerin [Nitrostat] 0.4 mg SUBLINGUAL UD PRN 06/21/18 04/05/19 History ondansetron 8 mg PO Q8 PRN 06/21/18 04/05/19 History potassium chloride 10 meq PO TIDM 06/21/18 04/05/19 History raloxifene 60 mg PO QPM 06/21/18 04/05/19 History ranolazine [Ranexa] 500 mg PO BID 06/21/18 04/05/19 History simvastatin 40 mg PO HS 06/21/18 04/05/19 History Calcium 600 + D(3) 1 cap PO BIDM 09/06/18 04/05/19 History pantoprazole 40 mg PO BID 09/23/18 04/05/19 History albuterol sulfate 90 mcg/actuation 2 puffs INH .COMPLEX PRN #18 gm 02/16/19 04/05/19 Rx aerosol inhaler immun glob G(IgG)-pro-IgA 0-50 4 8 gm SQ WEEKLY ml 02/16/19 04/05/19 History gram/20 mL(20 %)-prol-IgA 0-50 mcg/mL subcutaneous soln prednisone 1 mg tablet,delayed 3 mg PO DAILY tab 02/16/19 04/05/19 History release ibuprofen [Advil] 400 mg PO Q6H PRN 04/05/19 04/05/19 History prochlorperazine maleate 10 mg PO Q8H PRN 04/05/19 04/05/19 History [Compazine] Patient History Medical History Acute respiratory failure with hypoxia (Acute) CAD (coronary artery disease), [place] coronary artery With stable angina COPD exacerbation (Acute) Decreased diffusion capacity of lung Full cardiopulmonary resuscitation status (Acute) GERD (gastroesophageal reflux disease) DIET CONTROLLED Goals of care, counseling/discussion History of lung cancer DX 1 YEAR AGO. 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 Surgical History Coronary artery bypass grafts x 4 (Chronic 06/13/12) History of arthroscopy RIGHT KNEE MENISCUS History of cholecystectomy History of colonoscopy History of coronary artery bypass graft 4 VESSEL, [facility] 6 YEARS AGO History of hysterectomy History of surgical removal of meniscus of knee Family History Unknown Heart disease Other Family history non-contributory Social History Preferred Language: Ukrainian Communication Ability: Effective Per Diem Nurse Required: No Beliefs That Will Affect Care: None marital status: Current Living Situation: Spouse Current Living Situation Comment: and son current occupational status: retired 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 Other Information That Helps Us Care for You: No Feels Safe at Home: Yes Safety Concerns: Feels Safe At This Time Smoking Status: Never smoker Second Hand Exposure: No ; Hx Alcohol Use: No Hx Substance Use: No Review of Systems Constitutional: + weakness (generalized); no fever Eyes: no worsening vision Respiratory: as per Subjective / HPI Cardiovascular: + chest pain (right sided, non-exertional) Gastrointestinal: no abdominal pain and no nausea Integumentary: as per Subjective / HPI Neurologic: no headache(s) Physical Exam Constitutional: + ill appearing (chronically) and + thin; no acute distress ENMT: external ear and nose normal, oropharynx normal Respiratory: normal respiratory effort, lungs clear to auscultation Cardiovascular: RRR, no murmur, no edema Gastrointestinal (Abdomen): Inspection/Auscultation: normal bowel sounds; abdomen not distended Percussion/Palpation: abdomen soft; abdomen nontender Skin: she has an erythematous, flat, patchy rash across her back and chest wall. It did not appear targetoid and was not ulcerated or scaling. Psychiatric: A+Ox3, euthymic affect Lymphatic: no cervical or axillary lymphadenopathy Results & Data Vital Signs (Past 12 Hours) Vital Signs Temp Pulse Resp BP BP Pulse Ox 04/06/19 14:53 36.6 C 70 18 159/80 H 92 04/06/19 11:23 36.9 C 96 H 20 173/93 H 97 04/06/19 07:06 36.8 C 69 18 152/78 H 95 04/06/19 05:50 36.8 C 72 18 155/96 H 93 Laboratory Results Abnormal lab results 04/06/19 04/06/19 04/06/19 Range/Units 05:22 05:22 13:38 WBC 4.52 L (4.8-10.8) K/uL RBC 3.48 L (4.2-5.4) M/uL Hgb 10.6 L 10.9 L (12.0-16.0) g/dL Hct 32.3 L (37-47) % RDW Std Deviation 52.0 H (36.4-46.3) fL RDW Coeff of Marlene 15.3 H (11.5-14.5) % Plt Count 100 L (130-400) K/uL Lymph # (Auto) 0.65 L (1.2-3.4) K/uL [place] # (Auto) 0.69 H (0.11-0.59) K/uL Chloride 110 H (98-107) mmol/L Anion Gap 2.0 L (3-11) BUN 20 H (7-18) mg/dl BUN/Creatinine Ratio 29.6 H (10-20) Calcium 7.8 L (8.5-10.1) mg/dl Diagnostic Findings CTA Chest, 04/05/19: IMPRESSION: 1. No evidence of acute pulmonary embolism 2. Enlarging area of masslike consolidation within the right upper lobe measuring 6 cm. Progressive neoplasm is the diagnosis of exclusion 3. Persistent lower lobe bronchial wall thickening and mucous plugging 4. Innumerable bilateral pulmonary nodules. While the findings could be infectious/inflammatory, metastatic disease is again favored.
--- NOTE | 2019-04-06 18:22 | Pulmonary Consultation ---
Date of Consultation April 06, 2019 Assessment & Plan (1) Chest pain: Chest pain certainly appears to be noncardiac in origin Patient does have right-sided malignant disease which could be consistent with chest pain Chest pain is completely resolved at the time of our examination. Would refer patient back to oncology for further evaluation for aid efficacy of chemotherapy Do not see superimposed infection or significant atelectasis on chest x-ray or on CTA of the chest. Certainly, empiric treatment and steroids would provide no harm during a short course. (2) Multiple lung nodules on CT: Lung nodules identified on CT are consistent with metastatic disease from known non-small cell lung cancer. No indication for bronchoscopy or endobronchial ultrasound as we have a tissue diagnosis Continue chemotherapy as tolerated per Dr. Britton No need to follow lung nodules outside of cancer guidelines for known malignancy (3) Malignant neoplasm of upper lobe of lung: This appears to have improved slightly on most recent PET/CT Continue outpatient therapy as prescribed by oncology Routine pulmonary follow-up with Dr. wynn -Next appointment 08/24/2019 at 930 Thank you for including us in the care of this patient. There is not appear to be an acute process from a pulmonary standpoint. Certainly incentive spirometry could help with any question of atelectasis. A short course of steroids may be helpful. No evidence of acute COPD exacerbation. Patient did have ANTONIETTA in 2014 received 1 year of treatment. No evidence to support that this is recurrent. Also would not aggressively treat for Aspergillus without supporting diagnosis. Again, no indication for invasive bronchoscopy at this time. We will sign off at this time Please refer to Dr. Cordero's addendum for further recommendations. Supervising Physician Co-Signing Physician Notes Patient seen and examined with Han keenan PA-C. Patient has chronic lung findings including numerous pulmonary nodules, evidence of bronchiectasis and increased interstitial markings. She does have a history of ANTONIETTA colonization. She does have an advanced malignancy and is very frail. She appears stable and in no apparent distress. I do not think she needs any steroids at this time. Flutter valve would not be unreasonable for airway clearance. I do not think that she is acutely infected. Recommend discharging her home and following up in the pulmonary clinic. History of Present Illness Attending Physician: Lamonte Bobo MD History of Present Illness Attending: Dr. 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 Patient then diagnosed with non-small cell lung carcinoma and currently undergoing chemotherapy for that. She is under the care of Dr. Dennis Britton. Dosing of chemotherapy has been reduced due to intolerance. Her last dose of chemotherapy was the Thursday before of this year. She states to me that she is not sure that she is going to continue with chemotherapy. The patient presented to the emergency room with 2 to 3 days of dry cough and chest pain. She states that on admission the pain resolved and she has not had any pain since that time. She denies any shortness of breath and is oxygenating well on room air. She has no specific cough or sputum production. She has no pleuritic chest pain. She denies any fever or chills. She has no hemoptysis. She does follow with Dr. wynn of the pulmonary office was last seen 02/16/2019 with no changes to her treatment plan. CTA of the chest was negative for pulmonary emboli and also showed no superimposed infiltrate or consolidation Chest x-ray showed no acute process and also report failed to reveal superimposed pneumonia. Areas of concern in the right upper lobe are consistent with her last PET/CT where she had FDG uptake. With her pulmonary nodules as well as these areas of findings in the lung, suspect that this is persistent metastatic disease. Will treat symptomatically and refer back to oncology for further evaluation and treatment. Patient is anxious to return home as her 10-year-old grandson's birthday is on Thursday. She denies any acute complaints. I informed her that discharge planning would be subject to the hospitalist team. Allergies Allergy/AdvReac Type Severity Reaction Status Date / Time No Known Allergies Allergy Verified 04/05/19 15:19 Home Medications Home Medications Medication Instructions Recorded Confirmed Type aspirin [Aspir-81] 81 mg PO QDL 06/21/18 04/05/19 History cevimeline 30 mg PO TIDM 06/21/18 04/05/19 History epinephrine [EpiPen] 0.3 mg IM Q3H PRN 06/21/18 04/05/19 History isosorbide mononitrate 60 mg PO QAM 06/21/18 04/05/19 History magnesium 500 mg PO QAM 06/21/18 04/05/19 History metoprolol tartrate 75 mg PO BID 06/21/18 04/05/19 History multivitamin 1 tab PO QPM 06/21/18 04/05/19 History nitroglycerin [Nitrostat] 0.4 mg SUBLINGUAL UD PRN 06/21/18 04/05/19 History ondansetron 8 mg PO Q8 PRN 06/21/18 04/05/19 History potassium chloride 10 meq PO TIDM 06/21/18 04/05/19 History raloxifene 60 mg PO QPM 06/21/18 04/05/19 History ranolazine [Ranexa] 500 mg PO BID 06/21/18 04/05/19 History simvastatin 40 mg PO HS 06/21/18 04/05/19 History Calcium 600 + D(3) 1 cap PO BIDM 09/06/18 04/05/19 History pantoprazole 40 mg PO BID 09/23/18 04/05/19 History albuterol sulfate 90 mcg/actuation 2 puffs INH .COMPLEX PRN #18 gm 02/16/19 04/05/19 Rx aerosol inhaler immun glob G(IgG)-pro-IgA 0-50 4 8 gm SQ WEEKLY ml 02/16/19 04/05/19 History gram/20 mL(20 %)-prol-IgA 0-50 mcg/mL subcutaneous soln prednisone 1 mg tablet,delayed 3 mg PO DAILY tab 02/16/19 04/05/19 History release ibuprofen [Advil] 400 mg PO Q6H PRN 04/05/19 04/05/19 History prochlorperazine maleate 10 mg PO Q8H PRN 04/05/19 04/05/19 History [Compazine] Patient History Medical History Acute respiratory failure with hypoxia (Acute) CAD (coronary artery disease), [place] coronary artery With stable angina COPD exacerbation (Acute) Decreased diffusion capacity of lung Full cardiopulmonary resuscitation status (Acute) GERD (gastroesophageal reflux disease) DIET CONTROLLED Goals of care, counseling/discussion History of lung cancer DX 1 YEAR AGO. 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 Surgical History Coronary artery bypass grafts x 4 (Chronic 06/13/12) History of arthroscopy RIGHT KNEE MENISCUS History of cholecystectomy History of colonoscopy History of coronary artery bypass graft 4 VESSEL, [facility] 6 YEARS AGO History of hysterectomy History of surgical removal of meniscus of knee Family History Unknown Heart disease Other Family history non-contributory Social History Preferred Language: Indian Communication Ability: Effective Cotton Weigher Required: No Beliefs That Will Affect Care: None marital status: Current Living Situation: Spouse Current Living Situation Comment: and son current occupational status: retired 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 Pleasant EYES: No icterus, gaze conjugate. Pupils equal round and reactive to light NOSE: No evidence of epistaxis MOUTH: No lesions or candidiasis. Mucosa moist NECK: Supple LUNGS: CTA B/L, no wheezes, rales or rhonchi. No adventitious breath sounds HEART: Regular, rate controlled. Radial pulse matches heart rate as auscultated ABDOMEN: Soft, NT, ND, BS Present EXTREMITIES: No LE edema, pedal pulses intact NEURO: A&OX3 Results & Data Vital Signs (Past 12 Hours) Vital Signs Temp Pulse Resp BP BP Pulse Ox 04/06/19 14:53 36.6 C 70 18 159/80 H 92 04/06/19 11:23 36.9 C 96 H 20 173/93 H 97 04/06/19 07:06 36.8 C 69 18 152/78 H 95 Laboratory Results 04/06/19 13:38 04/06/19 05:22 Laboratory Tests 04/06/19 05:22 WBC 4.52 L Diagnostic Findings XR chest 1V portable CLINICAL HISTORY: 73 years-old Female presenting with Sepsis. TECHNIQUE: Portable upright AP view of the chest was obtained. COMPARISON: CT chest from 03/14/2019 and chest x-ray from 10/03/2018. FINDINGS: Left subclavian Mediport has been accessed and terminates in the SVC. Median sternotomy wires and mediastinal surgical clips noted. Atherosclerosis of the aortic arch. Cardiac silhouette top normal in size. Extensive heterogeneity of lung parenchyma. Opacity in the right upper lung is new from prior chest x-ray but correlates with the masslike consolidation amidst bronchiectasis in the right upper lobe evident on chest CT. Diffuse reticular nodular opacities also evident correlating with multifocal nodular opacities on chest CT. No large effusion or pneumothorax. Suspected osteopenia. Cholecystectomy clips noted. IMPRESSION: 1. Right upper lung consolidation and multifocal nodular infiltrates as on prior chest CT. Underlying neoplasm and/or metastatic disease not excluded. No new infiltrate in comparison to prior CT to raise concern for superimposed pneumonia. Electronically signed by: Vipul Calero M.D. 04/05/2019 2:[address] ANGIOGRAM OF THE CHEST CLINICAL HISTORY: Atypical chest pain SEPSIS COMPARISON STUDY: 03/14/2019, 07/10/2018, chest x-ray dated 04/05/2019 TECHNIQUE: Following the IV administration of 118 mL of Optiray-320, CT angiogram of the thorax was performed from the thoracic inlet to the lung bases utilizing the pulmonary embolus protocol. Images are reviewed in the axial, sagittal, and coronal planes. IV contrast was administered without complication. MIP imaging was performed. A dose lowering technique was utilized adhering to the principles of ALARA. CT DOSE: 215.09 mGy.cm FINDINGS: Mediastinal lymph nodes are the upper limits of normal in size, and similar to the preceding examination. The ascending thoracic aorta measures 34 mm. There were no pulmonary artery filling defects to indicate acute pulmonary embolism. No pleural effusions are visualized. There is a progressive area of masslike right lobe consolidation measuring 6 cm. There are right middle lobe bronchiectatic changes with atelectasis. There is a lower lobe bronchial wall thickening with mucous plugging. There are innumerable bilateral pulmonary nodules. An index 1 cm left pleural pulmonary nodule remains unchanged in size. IMPRESSION: 1. No evidence of acute pulmonary embolism 2. Enlarging area of masslike consolidation within the right upper lobe measuring 6 cm. Progressive neoplasm is the diagnosis of exclusion 3. Persistent lower lobe bronchial wall thickening and mucous plugging 4. Innumerable bilateral pulmonary nodules. While the findings could be infectious/inflammatory, metastatic disease is again favored. Electronically signed by: Jose Jackson M.D. 04/05/2019 3:37 PM PG Care Time/CCT Total # of Minutes Spent Total Time Spent with Patient: Total time spent is greater than 50% in coordination of care (as documented) at patient's floor/unit and/or counseling patient: 45 minutes
[2019-04-06] MEDS: RALOXIFENE HCL 60 MG TAB PO SCH (20:43)
[2019-04-06] MEDS: MULTIVITAMIN TAB PO SCH (20:43)
[2019-04-06] MEDS: SIMVASTATIN 40 MG TAB PO SCH (20:43)
[2019-04-06] MEDS: HEPARIN SOD 5,000 UNIT/0.5 ML VIAL SQ SCH (21:43)
[2019-04-07] MEDS: ONDANSETRON INJ 2 MG/ML 2 ML VIAL IV PRN (04:32)
[2019-04-07] MEDS: LOPERAMIDE HCL 2 MG CAP PO PRN ×2 (05:26→09:20)
[2019-04-07] MEDS: METOPROLOL TARTRATE 25 MG TAB PO SCH (08:13)
[2019-04-07] MEDS: PANTOprazole 40 MG TAB PO SCH (08:14)
[2019-04-07] MEDS: CALCIUM 600MG + VIT D 400 IU TAB PO SCH (08:14)
[2019-04-07] MEDS: DOXYCYCLINE HYCLATE 100 MG CAP PO SCH (08:14)
[2019-04-07] MEDS: POTASSIUM CHLORIDE 10 MEQ TABCR PO SCH ×2 (08:15→11:37)
[2019-04-07] MEDS: ISOSORBIDE MONO EXTENDED REL 60 MG TABCR PO SCH (08:16)
[2019-04-07] MEDS: predniSONE 1 MG TAB PO SCH (08:17)
[2019-04-07] MEDS: RANOLAZINE 500 MG ER TAB PO SCH (08:17)
[2019-04-07] MEDS: CEVIMELINE HCL PO SCH ×2 (08:17→11:39)
[2019-04-07] MEDS: HEPARIN SOD 5,000 UNIT/0.5 ML VIAL SQ SCH (08:52)
[2019-04-07 11:04] LABS: Basophils # (auto) 0.01 K/uL (0-0.2); Basophils % (auto) 0.2 %; Hematocrit (blood only) 33.2 % (37-47); Immature Granulocytes # (auto) 0.01 K/uL (0.00-0.02); Immature Granulocytes % (auto) 0.2 %; Lymphocytes # (auto) 0.66 K/uL (1.2-3.4); Lymphocytes % (auto) 13.3 %; Mean Corpuscular Hemoglobin 30.6 pg (25-34); Mean Corpuscular Hgb Conc 33.1 g/dL (32-36); Mean Corpuscular Volume 92.5 fL (80-100); Mean Platelet Volume 9.9 fL (7.4-10.4); Monocytes # (auto) 0.74 K/uL (0.11-0.59); Monocytes % (auto) 14.9 %; Neutrophils # (auto) 3.54 K/uL (1.4-6.5); Neutrophils % (auto) 71.4 %; Platelet Count 125 K/uL (130-400); RDW Coefficient of Variation 15.2 % (11.5-14.5); Red Blood Count 3.59 M/uL (4.2-5.4); White Blood Count 4.96 K/uL (4.8-10.8)
[2019-04-07 11:22] LABS: BUN Creatinine Ratio 18.9 (10-20); Calcium 7.9 mg/dl (8.5-10.1); Creatinine Clr Calc Pharmacy 34.6 ml/min; Potassium 3.7 mmol/L (3.5-5.1)
[2019-04-07] MEDS: ASPIRIN 81 MG ECTAB PO SCH (11:38)
[2019-04-07] MEDS: MAGNESIUM OXIDE 400 MG TAB PO SCH (11:39)
--- NOTE | 2019-04-07 12:52 | Discharge Summary ---
Date of Service April 07, 2019 Admission HPI Per Admitting Provider 73-year-old female says that two days ago (08Dec) after going to a basketball game she developed a dry cough and increased fatigue. Yesterday she says she slept most of the day. She presents today due to the ongoing cough, fatigue, as well as some right upper chest pain with radiation towards the back. Denies any fever or known recent illness, some ongoing nausea but no vomiting or diarrhea. Denies any abdominal pain. She tried some nitroglycerin at home but is not sure that actually helped. No other acute patient concerns. - Of significant note, patient has a history of metastatic non-small cell lung c ancer. She is actively undergoing chemotherapy via Dr. Bonilla office. Last round on 27Nov, planned next dose tomorrow (11Dec). She also has a history of immune deficiency disorder, Sjogren's syndrome, and autoimmune hepatitis. 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 - Social history includes prior smoking. Denies alcohol intake. Lives at home with . Principal Diagnosis Chest pain Discharge Exam Constitutional WD/WN, vitals as above Respiratory normal respiratory effort, lungs clear to auscultation Cardiovascular RRR, no murmur, no edema Gastrointestinal (Abdomen) normal bowel sounds, soft, nontender, no hepatosplenomegaly Musculoskeletal no cyanosis or clubbing, extremities motor strength 5/5 Skin macular rash shoulders, arms, face is fading Neurologic patellar DTR's 2+ bilat, sensation intact Psychiatric A+Ox3, euthymic affect Discharge Data Allergies Allergy/AdvReac Type Severity Reaction Status Date / Time No Known Allergies Allergy Verified 04/05/19 15:19 Consultations 04/05/19 16:43 ED Decision to Admit Stat 04/05/19 19:45 Consult Hematology Routine 04/05/19 21:09 Consult Oncology Routine Consult Pulmonology Routine 04/06/19 11:43 Consult Palliative Care Routine Ordered Studies 04/05/19 13:34 CT angio chest PE protocol Stat Hospital Course (1) Malignant neoplasm of upper lobe of lung: (2) Chest pain: (3) Cough: Cough, chest pain, malignant neoplasm of the lung Ms. Vega developed a cough over the couple of days prior to arrival. Notable history of COPD and metastatic right upper lobe lung NSCC. Previous ANTONIETTA infection (2013) and aspergillus. Seen by ID previously. No further chest pain today - Influenza negative. CTA chest notes no evidence of PE, concerns for progressive neoplasm, persistent bronchial wall thickening and mucous plugging, and numerous pulmonary nodules. No effusion or infiltrate noted. - Blood culture sent pending. -TnI negative. EKG NSR 97 with RBBB. - Given cefepime and doxycycline - no overt pneumonia on CT, pulmonology does not feel nodules demonstrate infection - Reference labs for possible fungal infection including aspergillus sent on admission - consult pulmonology - consult heme/onc - consult palliative care (4) COPD (chronic obstructive pulmonary disease): Continue home inhalers (5) Thrombocytopenia: At baseline platelet level, chronic thrombocytopenia. History of same. No obvious evidence of significant bleeding (6) HTN (hypertension): (7) Hyperlipemia: (8) Coronary artery bypass grafts x 4: (9) CAD, multiple vessel: HTN, hld, CAD, history of CABG: Continue ASA, isosorbide, metoprolol, ranolazine, simvastatin,prn nitroglycerin (10) Macular rash: started prior to arrival, no pruritis or pain Improving today and fading, no swelling of lips or tongue Will give 40 mg prednisone x 4 days total (11) Sjogren's disease: (12) Autoimmune hepatitis: (13) Immune deficiency disorder: Sjogren's, autoimmune hepatitis, immune deficiency disorder: At home is on Hizentra weekly (last on De). Minimal AST elevation here. Continue home cevimeline and prednisone as well. (14) Cachexia: BMI 18.4 Boost, erp implementation consultant consult (15) Osteoporosis: continue home ranolazine (16) Hypomagnesemia: resolved (17) Anemia: Hgb decreased almost 2g since admission Will repeat this afternoon No obvious s/s of bleeding (18) DVT prophylaxis: hold heparin subq for drop in hgb, if hbg stable tomorrow will initiate dvt chemoproph SCDs (19) Diarrhea: started after admission to hospital. Patient reports she develops diarrhea every time she gets antibiotics. Diarrhea is improving today with cessation of antibiotics. C diff neg Stool cultures pending Total Time Total Time Spent Total Time Spent (In Minutes): greater than 30 minutes Discharge Plan Discharge Items Patient Disposition: Home - Self-Care Reason For Visit: COUGH, CHEST PAIN, IMMUNOCOMPROMIZED Discharge Diagnosis: Chest pain Activity: Resume your previous activity Non-emergency contact: Primary Care Provider, Oncologist and Stretcher Leveler Operator Helper Call non-emergency contact if: you have any medication questions, your symptoms worsen, your pain is not controlled and you have a fever Follow-up/Referrals: Evin Villalpando MD [Primary Care Provider] - Diet: Regular Addtl Attending Provider Instructions: (1) Cough, chest pain, malignant neoplasm of the lung - You will discontinue antibiotics. Pulmonology did not feel that there was an infection present in your lungs - Reference labs for possible fungal infection including aspergillus sent on admission - please follow these with your pcp - You saw specialist providers from pulmonology, oncology and palliative care (2) COPD (chronic obstructive pulmonary disease): Continue home inhalers (3) CAD, multiple vessel: Hypertension, hyperlipidemia, coronary artery disease: Continue aspirin, isosorbide, metoprolol, ranolazine, simvastatin, nitroglycerin (4) Macular rash: You have received 2 days of prednisone for this rash which is now improving. You will take 2 more days and then return to your normal prednisone dosing. You should return to the emergency department if you develop swelling of your lips, tongue or throat. You should call your doctor if the rash worsens or you develop a fever (5) Diarrhea: Please follow with your pcp on pending stool cultures. If you develop abdominal pain or fever please call your doctor right away. Pending Studies at Discharge: Yes Stand-Alone Forms: [facility] cheerapp, Smoking Cessation Medications and DC Order Prescriptions: New prednisone 20 mg Tablet 40 mg PO DAILY Qty: 2 RF: 0 Continued prednisone 1 mg tablet,delayed release (DR/EC) 3 mg PO DAILY RF: 0 Hizentra 4 gram/20 mL (20 %) solution 8 gm SQ WEEKLY RF: 0 albuterol sulfate 90 mcg/actuation HFA aerosol inhaler 2 puffs INH .COMPLEX PRN (Reason: shortness of breath or wheezing) Qty: 18 RF: 0 Calcium 600 + D(3) 600 mg calcium- 200 unit Capsule 1 cap PO BIDM RF: 0 pantoprazole 40 mg tablet,delayed release (DR/EC) 40 mg PO BID RF: 0 prochlorperazine maleate [Compazine] 10 mg Tablet 10 mg PO Q8H PRN (Reason: Nausea) RF: 0 ibuprofen [Advil] 200 mg Tablet 400 mg PO Q6H PRN (Reason: Pain) RF: 0 multivitamin Tablet 1 tab PO QPM RF: 0 potassium chloride 10 mEq Capsule, Extended Release 10 meq PO TIDM RF: 0 aspirin [Aspir-81] 81 mg Tablet,Delayed Release (Dr/Ec) 81 mg PO QDL RF: 0 simvastatin 40 mg Tablet 40 mg PO HS RF: 0 isosorbide mononitrate 60 mg Tablet Extended Release 24 Hr 60 mg PO QAM RF: 0 cevimeline 30 mg Capsule 30 mg PO TIDM RF: 0 nitroglycerin [Nitrostat] 0.4 mg Tablet, Sublingual 0.4 mg Sublingual UD PRN (Reason: Chest Pain) RF: 0 raloxifene 60 mg Tablet 60 mg PO QPM RF: 0 magnesium 250 mg Tablet 500 mg PO QAM RF: 0 epinephrine [EpiPen] 0.3 mg/0.3 mL Auto-Injector 0.3 mg IM Q3H PRN (Reason: PRN) RF: 0 ondansetron 4 mg Tablet,Disintegrating 8 mg PO Q8 PRN (Reason: Nausea) RF: 0 ranolazine [Ranexa] 500 mg Tablet Extended Release 12 Hr 500 mg PO BID RF: 0 metoprolol tartrate 75 mg Tablet 75 mg PO BID RF: 0 Discharge Orders: Discharge Order (Routine); Ordered 04/07/19 Ordered By: Shelley Vaca Admission Data Admit Date/Time: 04/05/19 18:28 Attending Provider: Lamonte Bobo Admit Provider: Selvin Hassan Primary Care Provider: Evin Villalpando Other Providers: Lito Blackman ; Dennis De La O V ; Jarod Cordero ; Soledad Ruano ; Lamonte Bobo
[2019-04-08] MEDS ORDERED: predniSONE 20 MG TAB PO SCH (09:00)
--- NOTE | 2019-04-09 09:06 | Communication Note ---
Date of Service: April 09, 2019 Called Ms. Vega to discuss her stool culture. Culture grew staph which is unclear in it's significance as she clearly never presented as someone suffering from food poisoning. She is still taking some Imodium but feels well. She will follow up with Dr. Preet Arango on Thursday. I did ask her to call his office or return to the ED if she develops worsening symptoms or fever.
[2019-04-10 21:44] LABS: Aspergillus Ag Index 0.26 (<0.50); Aspergillus Antigen, Serum Not Detected (Not Detected); Fungitell (1-3)-B-D-Glucan 61 pg/mL
[2019-04-11 08:51] LABS: Aspergillus Niger Negative
[2019-04-11 08:53] LABS: Aspergillus Flavus Negative
== END 2019-04-07 14:22 | disposition home or self-care (01) ==
LOC: 4W 12:45 → ED 12:45 → SUATTDRO 18:28 → 4W 19:20

== ENCOUNTER 2020-03-11 15:08 | Inpatient (IN) ==
--- NOTE | 2020-03-11 15:28 | Emergency Department Note ---
History of Present Illness General Chief complaint: Lethargic Stated complaint: LETHARGIC Time Seen by Provider: 03/11/20 15:11 Source: patient and EMS Mode of arrival: EMS History of Present Illness Provider complaint: Generalized weakness Onset (ago): day(s) Location: upper extremity, lower extremity, left and right Severity: moderate Pain Consistency: + constant Quality: + other (Weak all over) Relieved By: + none Associated symptoms: + cough (Chronic unchanged cough) and + weakness; no chest pain, no fever/chills, no headaches, no nausea/vomiting and no shortness of breath This is a 74-year-old female with a history of lung cancer presenting with generalized weakness for the past 4 to 5 days. The patient states that she has no energy and she needs help getting around. She has not been able to eat anything for the past 3 days. She has no other specific complaints other than a chronic unchanged cough. She does have a history of lung cancer and has had this cough for a long time. She denies any known exposure to COVID-19. She has had no fever, chest pain, shortness of breath, abdominal pain, vomiting, diarrhe a, body aches, loss of taste or smell or any urinary symptoms. She states her urine is normal color. She has not had chemotherapy since October. Home Medications Home Medications Medication Instructions Recorded Confirmed Type aspirin [Aspir-81] 81 mg PO QDL 06/21/18 03/02/20 History cevimeline 30 mg PO TIDM 06/21/18 03/02/20 History isosorbide mononitrate 60 mg PO QAM 06/21/18 03/02/20 History magnesium 500 mg PO QAM 06/21/18 03/02/20 History metoprolol tartrate 75 mg PO BID 06/21/18 03/02/20 History multivitamin 1 tab PO QPM 06/21/18 03/02/20 History ondansetron 8 mg PO Q8 PRN 06/21/18 03/02/20 History potassium chloride 10 meq PO TIDM 06/21/18 03/02/20 History raloxifene 60 mg PO QPM 06/21/18 03/02/20 History ranolazine [Ranexa] 500 mg PO BID 06/21/18 03/02/20 History simvastatin 40 mg PO HS 06/21/18 03/02/20 History Calcium 600 + D(3) 1 cap PO BIDM 09/06/18 03/02/20 History pantoprazole 40 mg PO BID 09/23/18 03/02/20 History albuterol sulfate 90 mcg/actuation 2 puffs INH .COMPLEX PRN #18 gm 02/16/19 03/02/20 Rx aerosol inhaler immun glob G 4 gram/20 mL(20 8 gm SQ WEEKLY ml 02/16/19 03/02/20 History %)-prol-IgA 0-50 mcg/mL subcutaneous soln prednisone 1 mg tablet,delayed 3 mg PO DAILY tab 02/16/19 03/02/20 History release prochlorperazine maleate 10 mg PO Q8H PRN 04/05/19 11/23/19 History [Compazine] nitroglycerin 0.4 mg sublingual 0.4 mg SUBLINGUAL UD PRN #30 tab 05/26/19 03/02/20 Rx tablet epinephrine 0.3 mg/0.3 mL 0.3 mg IM Q3H PRN #1 ea 08/24/19 03/02/20 Rx injection, auto-injector Allergies Allergy/AdvReac Type Severity Reaction Status Date / Time No Known Allergies Allergy Verified 03/02/20 10:10 Past Med/Surg History Medical History Acute respiratory failure with hypoxia Bronchiectasis CAD (coronary artery disease), [place] coronary artery With stable angina COPD exacerbation Decreased diffusion capacity of lung Full cardiopulmonary resuscitation status GERD (gastroesophageal reflux disease) DIET CONTROLLED Goals of care, counseling/discussion History of lung cancer DX 1 YEAR AGO. 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 Surgical History Coronary artery bypass grafts x 4 (06/13/12) History of arthroscopy RIGHT KNEE MENISCUS History of cholecystectomy History of colonoscopy History of coronary artery bypass graft 4 VESSEL, [facility] 6 YEARS AGO History of hysterectomy History of surgical removal of meniscus of knee Family History Unknown Heart disease Other Family history non-contributory Social History Smoking Status: Never smoker Second Hand Exposure: No; Hx Alcohol Use: No Hx Substance Use: No Preferred Language: Nauruan Communication Ability: Effective Fashion Editor Required: No Beliefs That Will Affect Care: None marital status: Current Living Situation: Spouse Current Living Situation Comment: and son current occupational status: retired 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 and A total of 10 systems reviewed and were otherwise negative Physical Exam Vital Signs Vital Signs - 24 hr 03/11/20 15:22 03/11/20 15:35 03/11/20 15:49 Temperature 37.5 C 37.5 C Temperature Source Rectal Rectal Pulse Rate 76 Pulse Rate from SpO2 Sensor Respiratory Rate 18 Respiratory Effort / Characteristics Non-Labored Spontaneous Blood Pressure 133/65 Blood Pressure Mean 87 Pulse Oximetry 92 Oxygen Delivery Method Room Air Room Air Sepsis New/Unexplained Change in Mental Status No Sepsis Action Taken by Nursing No Action Required 03/11/20 15:52 03/11/20 15:55 03/11/20 16:00 Temperature Temperature Source Pulse Rate 76 76 Pulse Rate from SpO2 Sensor 76 76 Respiratory Rate 34 H 30 H Respiratory Effort / Characteristics Non-Labored Spontaneous Blood Pressure 126/64 Blood Pressure Mean 77 Pulse Oximetry 92 91 Oxygen Delivery Method Room Air Sepsis New/Unexplained Change in Mental Status Sepsis Action Taken by Nursing 03/11/20 16:15 03/11/20 16:22 03/11/20 16:30 Temperature Temperature Source Pulse Rate 98 H 76 Pulse Rate from SpO2 Sensor 77 76 Respiratory Rate 24 16 Respiratory Effort / Characteristics Non-Labored Spontaneous Blood Pressure 117/65 Blood Pressure Mean 78 Pulse Oximetry 92 95 Oxygen Delivery Method Room Air Sepsis New/Unexplained Change in Mental Status Sepsis Action Taken by Nursing 03/11/20 16:45 03/11/20 16:52 03/11/20 17:00 Temperature Temperature Source Pulse Rate 75 75 Pulse Rate from SpO2 Sensor 75 74 Respiratory Rate 35 H 28 H Respiratory Effort / Characteristics Non-Labored Spontaneous Blood Pressure 114/64 Blood Pressure Mean 69 Pulse Oximetry 93 92 Oxygen Delivery Method Room Air Sepsis New/Unexplained Change in Mental Status Sepsis Action Taken by Nursing 03/11/20 17:17 03/11/20 17:22 03/11/20 17:30 Temperature Temperature Source Pulse Rate 79 Pulse Rate from SpO2 Sensor Respiratory Rate Respiratory Effort / Characteristics Non-Labored Spontaneous Blood Pressure 133/72 Blood Pressure Mean 91 Pulse Oximetry Oxygen Delivery Method Room Air Sepsis New/Unexplained Change in Mental Status Sepsis Action Taken by Nursing 03/11/20 17:45 03/11/20 17:52 03/11/20 18:00 Temperature Temperature Source Pulse Rate Pulse Rate from SpO2 Sensor 73 72 Respiratory Rate Respiratory Effort / Characteristics Non-Labored Spontaneous Blood Pressure 125/65 Blood Pressure Mean 88 Pulse Oximetry 93 93 Oxygen Delivery Method Room Air Room Air Room Air Sepsis New/Unexplained Change in Mental Status Sepsis Action Taken by Nursing 03/11/20 18:15 03/11/20 18:22 03/11/20 18:30 Temperature Temperature Source Pulse Rate 71 70 Pulse Rate from SpO2 Sensor 71 70 Respiratory Rate 25 H 26 H Respiratory Effort / Characteristics Non-Labored Spontaneous Blood Pressure 123/64 Blood Pressure Mean 80 Pulse Oximetry 94 93 Oxygen Delivery Method Room Air Room Air Room Air Sepsis New/Unexplained Change in Mental Status Sepsis Action Taken by Nursing Constitutional: Vital signs reviewed. Cachectic and warm to touch. Eyes: Pupils are equal round reactive to light. Conjunctiva are noninjected. ENT: Pharynx is clear without erythema or exudate. Mucous membranes are dry. Neck supple without meningeal signs. Respiratory: Clear to auscultation bilaterally. Breath sounds are equal bilaterally. Cardiovascular: Regular rate and rhythm. No rubs or gallops. GI: Soft, nondistended and nontender. Bowel sounds are present. Musculoskeletal: No peripheral edema. No lower extremity tenderness. Integumentary: No cyanosis. or jaundice. Neurological: The patient is awake and alert. No focal deficits. Psychiatric: Normal affect. Not anxious appearing. Course Administered Medications Discontinued Medications Sodium Chloride (Nss 1000ml) 250 mls @ 999 mls/hr IV .Q16M ONE Stop: 03/11/20 16:49 Last Infusion: 03/11/20 17:50 Dose: 0 mls/hr Documented by: [id number] Admin: 03/11/20 17:35 Dose: 999 mls/hr Documented by: [id number] Piperacillin Sod/Tazobactam Sod (Zosyn) 4.5 gm in 120 mls @ 240 mls/hr IV NOW ONE Stop: 03/11/20 17:36 Last Infusion: 03/11/20 18:05 Dose: 0 mls/hr Documented by: [id number] Admin: 03/11/20 17:35 Dose: 240 mls/hr Documented by: [id number] Medical Decision Making Differential Diagnosis Sepsis, UTI, pneumonia, COVID-19, dehydration, anemia, cardiac Medical Records Attestation: I reviewed the patient's medical records. I did perform a limited focused review of portions of the patient's old chart on the electronic medical record. The patient has had no recent pertinent visits to this hospital. The patient was seen by pulmonology March 02 for follow-up for lung cancer. Home Medications Current Medication List: was personally reviewed by me Laboratory Data Attestation: I reviewed the patient's lab results. Result diagrams: 03/11/20 15:53 03/11/20 15:53 Lab Results 03/11/20 03/11/20 03/11/20 Range/Units 15:53 15:53 15:53 WBC 8.59 (4.8-10.8) K/uL RBC 3.58 L (4.2-5.4) M/uL Hgb 8.6 L (12.0-16.0) g/dL Hct 27.4 L (37-47) % MCV 76.5 L (80-100) fL MCH 24.0 L (25-34) pg MCHC 31.4 L (32-36) g/dL RDW Std Deviation 49.0 H (36.4-46.3) fL RDW Coeff of Marlene 17.5 H (11.5-14.5) % Plt Count 137 (130-400) K/uL MPV 10.0 (7.4-10.4) fL Immature Gran % (Auto) 0.3 % Neut % (Auto) 79.0 % Lymph % (Auto) 8.8 % [place] % (Auto) 11.9 % Eos % (Auto) 0.0 % Baso % (Auto) 0.0 % Neut # (Auto) 6.78 H (1.4-6.5) K/uL Lymph # (Auto) 0.76 L (1.2-3.4) K/uL [place]aine # (Auto) 1.02 H (0.11-0.59) K/uL Eos # (Auto) 0.00 (0-0.5) K/uL Baso # (Auto) 0.00 (0-0.2) K/uL Immature Gran # (Auto) 0.03 H (0.00-0.02) K/uL PT 11.8 (9.0-12.0) Seconds INR 1.1 (0.9-1.1) APTT 30.8 (21.0-31.0) Seconds PTT Ratio 1.1 Sodium 135 L (136-145) mmol/L Potassium 4.3 (3.5-5.1) mmol/L Chloride 106 (98-107) mmol/L Carbon Dioxide 23 (21-32) mmol/L Anion Gap 6.0 (3-11) BUN 28 H (7-18) mg/dl Creatinine 0.85 (0.6-1.2) mg/dl Est Cr Clr Drug Dosing 36.9 ml/min Est GFR ( Amer) 77.7 Est GFR (Non-Af Amer) 67.0 BUN/Creatinine Ratio 32.6 H (10-20) Glucose 124 H (70-99) mg/dl Lactate (0.4-2.0) mmol/L Calcium 8.2 L (8.5-10.1) mg/dl Magnesium 2.0 (1.8-2.4) mg/dl Total Bilirubin 0.6 (0.2-1) mg/dl AST 52 H (15-37) U/L ALT 38 (12-78) U/L Alkaline Phosphatase 82 (45-117) U/L Troponin I 0.037 (0-0.045) ng/ml Total Protein 6.2 L (6.4-8.2) gm/dl Albumin 2.2 L (3.4-5.0) gm/dl Globulin 4.0 (2.5-4.0) gm/dl Albumin/Globulin Ratio 0.6 L (0.9-2) Urine Color Urine Appearance (Clear) Urine pH (4.5-7.5) Ur Specific [place] (1.000-1.030) Urine Protein (Negative) Urine Glucose (UA) (Negative) Urine Ketones (Negative) Urine Blood (Negative) Urine Nitrite (Negative) Urine Bilirubin (Negative) Urine Urobilinogen (Negative) Ur Leukocyte Esterase (Negative) Urine WBC (Auto) (0-5) /hpf Urine RBC (Auto) (0-4) /hpf U Hyaline Cast (Auto) (0-5) /lpf U Epithel Cells (Auto) (0-5) /lpf Urine Bacteria (Auto) (Negative) COVID-19 Eval Order Influ A Molecular Assay (Negative) Influ B Molecular Assay (Negative) SARS-CoV-2, RNA, NAAT (NEGATIVE) 03/11/20 03/11/20 03/11/20 Range/Units 15:53 16:10 17:30 WBC (4.8-10.8) K/uL RBC (4.2-5.4) M/uL Hgb (12.0-16.0) g/dL Hct (37-47) % MCV (80-100) fL MCH (25-34) pg MCHC (32-36) g/dL RDW Std Deviation (36.4-46.3) fL RDW Coeff of Marlene (11.5-14.5) % Plt Count (130-400) K/uL MPV (7.4-10.4) fL Immature Gran % (Auto) % Neut % (Auto) % Lymph % (Auto) % [place] % (Auto) % Eos % (Auto) % Baso % (Auto) % Neut # (Auto) (1.4-6.5) K/uL Lymph # (Auto) (1.2-3.4) K/uL [place] # (Auto) (0.11-0.59) K/uL Eos # (Auto) (0-0.5) K/uL Baso # (Auto) (0-0.2) K/uL Immature Gran # (Auto) (0.00-0.02) K/uL PT (9.0-12.0) Seconds INR (0.9-1.1) APTT (21.0-31.0) Seconds PTT Ratio Sodium (136-145) mmol/L Potassium (3.5-5.1) mmol/L Chloride (98-107) mmol/L Carbon Dioxide (21-32) mmol/L Anion Gap (3-11) BUN (7-18) mg/dl Creatinine (0.6-1.2) mg/dl Est Cr Clr Drug Dosing ml/min Est GFR ( Amer) Est GFR (Non-Af Amer) BUN/Creatinine Ratio (10-20) Glucose (70-99) mg/dl Lactate 1.2 (0.4-2.0) mmol/L Calcium (8.5-10.1) mg/dl Magnesium (1.8-2.4) mg/dl Total Bilirubin (0.2-1) mg/dl AST (15-37) U/L ALT (12-78) U/L Alkaline Phosphatase (45-117) U/L Troponin I (0-0.045) ng/ml Total Protein (6.4-8.2) gm/dl Albumin (3.4-5.0) gm/dl Globulin (2.5-4.0) gm/dl Albumin/Globulin Ratio (0.9-2) Urine Color Urine Appearance (Clear) Urine pH (4.5-7.5) Ur Specific [place] (1.000-1.030) Urine Protein (Negative) Urine Glucose (UA) (Negative) Urine Ketones (Negative) Urine Blood (Negative) Urine Nitrite (Negative) Urine Bilirubin (Negative) Urine Urobilinogen (Negative) Ur Leukocyte Esterase (Negative) Urine WBC (Auto) (0-5) /hpf Urine RBC (Auto) (0-4) /hpf U Hyaline Cast (Auto) (0-5) /lpf U Epithel Cells (Auto) (0-5) /lpf Urine Bacteria (Auto) (Negative) COVID-19 [facility] A Molecular Assay Negative (Negative) Influ B Molecular Assay Negative (Negative) SARS-CoV-2, RNA, NAAT NEGATIVE (NEGATIVE) 03/11/20 Range/Units 17:30 WBC (4.8-10.8) K/uL RBC (4.2-5.4) M/uL Hgb (12.0-16.0) g/dL Hct (37-47) % MCV (80-100) fL MCH (25-34) pg MCHC (32-36) g/dL RDW Std Deviation (36.4-46.3) fL RDW Coeff of Marlene (11.5-14.5) % Plt Count (130-400) K/uL MPV (7.4-10.4) fL Immature Gran % (Auto) % Neut % (Auto) % Lymph % (Auto) % [place] % (Auto) % Eos % (Auto) % Baso % (Auto) % Neut # (Auto) (1.4-6.5) K/uL Lymph # (Auto) (1.2-3.4) K/uL [place] # (Auto) (0.11-0.59) K/uL Eos # (Auto) (0-0.5) K/uL Baso # (Auto) (0-0.2) K/uL Immature Gran # (Auto) (0.00-0.02) K/uL PT (9.0-12.0) Seconds INR (0.9-1.1) APTT (21.0-31.0) Seconds PTT Ratio Sodium (136-145) mmol/L Potassium (3.5-5.1) mmol/L Chloride (98-107) mmol/L Carbon Dioxide (21-32) mmol/L Anion Gap (3-11) BUN (7-18) mg/dl Creatinine (0.6-1.2) mg/dl Est Cr Clr Drug Dosing ml/min Est GFR ( Amer) Est GFR (Non-Af Amer) BUN/Creatinine Ratio (10-20) Glucose (70-99) mg/dl Lactate (0.4-2.0) mmol/L Calcium (8.5-10.1) mg/dl Magnesium (1.8-2.4) mg/dl Total Bilirubin (0.2-1) mg/dl AST (15-37) U/L ALT (12-78) U/L Alkaline Phosphatase (45-117) U/L Troponin I (0-0.045) ng/ml Total Protein (6.4-8.2) gm/dl Albumin (3.4-5.0) gm/dl Globulin (2.5-4.0) gm/dl Albumin/Globulin Ratio (0.9-2) Urine Color Dark Yellow Urine Appearance Clear (Clear) Urine pH 5.0 (4.5-7.5) Ur Specific [place] 1.020 (1.000-1.030) Urine Protein 1+ H (Negative) Urine Glucose (UA) Negative (Negative) Urine Ketones Negative (Negative) Urine Blood Negative (Negative) Urine Nitrite Negative (Negative) Urine Bilirubin Negative (Negative) Urine Urobilinogen Negative (Negative) Ur Leukocyte Esterase Trace H (Negative) Urine WBC (Auto) 1-5 (0-5) /hpf Urine RBC (Auto) 0-4 (0-4) /hpf U Hyaline Cast (Auto) 1-5 (0-5) /lpf U Epithel Cells (Auto) 10-20 H (0-5) /lpf Urine Bacteria (Auto) Negative (Negative) COVID-19 Eval Order Influ A Molecular Assay (Negative) Influ B Molecular Assay (Negative) SARS-CoV-2, RNA, NAAT (NEGATIVE) Imaging Data Radiologist's Impression: ECG Data Attestation: I personally reviewed and interpreted this ECG as follows: Indication: + weakness Rate (beats per minute): 76 Rhythm: + normal sinus ECG Intervals/blocks: + Incomplete right bundle branch block and + Prolonged QT ECG ST segments: + T-wave inversions ECG Findings: no PVCs Comparison ECG Date: from (April 05, 2019) Change: the following changes noted (QT prolongation is new today.) MDM Narrative I did evaluate the patient as noted above. I did obtain history from the patient as well as the batt machine operator who brought her in. The patient is complaining of lethargy for the past several days. Her temperature was 100 according to the batt machine operator. She felt warm to the touch so I ordered a rectal temperature which was 37.5. I did order sepsis labs. She was placed in respiratory isolation and Covid testing was ordered. IV access was established. I did place an order for continuous cardiac monitoring. The monitor showed normal sinus rhythm at a rate of 78 bpm. I did order and personally review the patient's 12-lead EKG as described above. She has QT prolongation but no acute ischemic changes. I did order and personally reviewed the images of the patient's chest x-ray as described above. She has right upper lobe consolidation. I did order a urine analysis. She does not have a UTI. Blood cultures were obtained and the patient was given Zosyn 4.5 g IV. I did order and review the patient's blood work as noted in the electronic medical record. She is anemic with a hemoglobin of 8.6. Her white count is not elevated. Sodium is 135. Renal function is preserved. Troponin is negative. Test results were discussed with the patient. Rapid flu testing was negative. Covid testing was negative. I did discuss the case with the hospitalist and residential case manager. Impression & Plan Pneumonia, Anemia, Generalized muscle weakness Discharge Plan Visit Data Chief Complaint: Lethargic Stated Complaint: LETHARGIC ED Provider: Willie Newton Discharge Problem: Pneumonia, Anemia, Generalized muscle weakness Patient Disposition: Being Evaluated by Hospitalist Forms Stand Alone Forms: My [facility] Prescriptions Prescriptions: No Action nitroglycerin [Nitrostat] 0.4 mg tablet, sublingual 0.4 mg Sublingual UD PRN (Reason: Chest Pain) Qty: 30 RF: 3 epinephrine [EpiPen] 0.3 mg/0.3 mL auto-injector 0.3 mg IM Q3H PRN (Reason: PRN) Qty: 1 RF: 0 prednisone 1 mg tablet,delayed release (DR/EC) 3 mg PO DAILY RF: 0 Hizentra 4 gram/20 mL (20 %) solution 8 gm SQ WEEKLY RF: 0 albuterol sulfate 90 mcg/actuation HFA aerosol inhaler 2 puffs INH .COMPLEX PRN (Reason: shortness of breath or wheezing) Qty: 18 RF: 0 Calcium 600 + D(3) 600 mg calcium- 200 unit Capsule 1 cap PO BIDM RF: 0 pantoprazole 40 mg tablet,delayed release (DR/EC) 40 mg PO BID RF: 0 prochlorperazine maleate [Compazine] 10 mg Tablet 10 mg PO Q8H PRN (Reason: Nausea) RF: 0 multivitamin Tablet 1 tab PO QPM RF: 0 potassium chloride 10 mEq Capsule, Extended Release 10 meq PO TIDM RF: 0 aspirin [Aspir-81] 81 mg Tablet,Delayed Release (Dr/Ec) 81 mg PO QDL RF: 0 simvastatin 40 mg Tablet 40 mg PO HS RF: 0 isosorbide mononitrate 60 mg Tablet Extended Release 24 Hr 60 mg PO QAM RF: 0 cevimeline 30 mg Capsule 30 mg PO TIDM RF: 0 raloxifene 60 mg Tablet 60 mg PO QPM RF: 0 magnesium 250 mg Tablet 500 mg PO QAM RF: 0 ondansetron 4 mg Tablet,Disintegrating 8 mg PO Q8 PRN (Reason: Nausea) RF: 0 ranolazine [Ranexa] 500 mg Tablet Extended Release 12 Hr 500 mg PO BID RF: 0 metoprolol tartrate 75 mg Tablet 75 mg PO BID RF: 0 Referrals Referrals: Evin Villalpando MD [Primary Care Provider] - Discharge Problem: Pneumonia Qualifiers: Pneumonia type: due to unspecified organism Laterality: right Lung location: upper lobe of lung Qualified Code(s): J18.9 - Pneumonia, unspecified organism Anemia Qualifiers: Anemia type: unspecified type Qualified Code(s): D64.9 - Anemia, unspecified
[2020-03-11 16:12] LABS: Hematocrit (blood only) 27.4 % (37-47); Hemoglobin 8.6 g/dL (12.0-16.0); Immature Granulocytes # (auto) 0.03 K/uL (0.00-0.02); Immature Granulocytes % (auto) 0.3 %; Lymphocytes # (auto) 0.76 K/uL (1.2-3.4); Lymphocytes % (auto) 8.8 %; Mean Corpuscular Hgb Conc 31.4 g/dL (32-36); Mean Corpuscular Volume 76.5 fL (80-100); Monocytes # (auto) 1.02 K/uL (0.11-0.59); Monocytes % (auto) 11.9 %; Neutrophils # (auto) 6.78 K/uL (1.4-6.5); Platelet Count 137 K/uL (130-400); RDW Coefficient of Variation 17.5 % (11.5-14.5); Red Blood Count 3.58 M/uL (4.2-5.4); White Blood Count 8.59 K/uL (4.8-10.8)
[2020-03-11 16:24] LABS: INR 1.1 (0.9-1.1); Partial Thromboplastin Ratio 1.1; Partial Thromboplastin Time 30.8 Seconds (21.0-31.0); Prothrombin Time 11.8 Seconds (9.0-12.0)
[2020-03-11 16:32] LABS: Albumin Level 2.2 gm/dl (3.4-5.0); BUN Creatinine Ratio 32.6 (10-20); Calcium 8.2 mg/dl (8.5-10.1); Creatinine Clr Calc Pharmacy 36.9 ml/min; Est GFR (African American) 77.7
[2020-03-11] MEDS ORDERED: SODIUM CHLORIDE 0.9% 1000ML 250 ML IV ONE (16:34)
[2020-03-11 16:38] LABS: Albumin Globulin Ratio 0.6 (0.9-2); Bilirubin,Total 0.6 mg/dl (0.2-1); Potassium 4.3 mmol/L (3.5-5.1); Total Protein 6.2 gm/dl (6.4-8.2); Troponin I 0.037 ng/ml (0-0.045)
[2020-03-11 17:00] LABS: Influenza A virus by PCR Negative (Negative); Influenza B virus by PCR Negative (Negative)
--- NOTE | 2020-03-11 17:05 | XRay Report ---
XR chest 1V portable HISTORY: 74 years-old Female SEPSIS acute sepsis COMPARISON: Chest CT 09/27/2019, chest radiograph 04/05/2019 TECHNIQUE: Portable AP view of the chest FINDINGS: Cardiac silhouette is enlarged. Prior median sternotomy. Left subclavian [id number] catheter. Irre gular mass of the right upper lobe is partially obscured by progressive right upper lobe consolidatio n. Bibasilar mucous plugging with scattered reticular nodular right lung base opacities. No pneumotho rax, large pleural effusion or overt pulmonary edema. Moderate hemidiaphragmatic elevation. Degenerat john changes of the shoulders and spine. Cholecystectomy. IMPRESSION: 1. The previously noted mass of the right upper lobe suspicious for malignancy is partially obscured by progressive right upper lobe consolidation. Findings may reflect pneumonia or postobstructive pneu monitis. 2. Bibasilar predominant reticular nodular opacities are redemonstrated suggestive of chronic infecti ous or inflammatory pneumonitis. 3. Bibasilar bronchiectasis redemonstrated. ACT 112: Negative or not required by law. The above report was generated using voice recognition software. It may contain grammatical, syntax o r spelling errors. Electronically signed by: Selvin Lundberg M.D. 03/11/2020 5:04 PM
[2020-03-11] MEDS ORDERED: PIPERACILLIN/TAZOBACTAM 4.5 GM/120 ML BAG IV ONE (17:07)
[2020-03-11] MEDS ORDERED: PIPERACILL/TAZOBAC CONSULT ACTIVE PRN (17:07)
--- NOTE | 2020-03-11 17:35 | History & Physical Report ---
Date of Service March 11, 2020 Assessment & Plan (1) Postobstructive pneumonia: Continue Zosyn 3.375g IV Q8H Patient not interested in bronchoscopy, bronchial stent etc... Consider pulmonology referral if not improving (2) Microcytic anemia: Patient not interested in further workup for this which seems reasonable. Possible diet related but will get fecal occult blood to assess for GI bleed and need to at H2 javan to her usual PPI. Iron studies in AM to assess need for iron transfusions if necessary. (3) Severe protein-calorie malnutrition: Dietary consult. Encourage oral intake with soft foods due to poor dentition after prior chemo. (4) Non-small cell lung cancer (NSCLC): On no further chemo or radiation therapy p0er patient. (5) Generalized muscle weakness: PT/OT eval and treat (6) Immunodeficiency: Continue Hizentra injections as an outpatient. (7) Ischemic cardiomyopathy: Continue metoprolol tartrate -> consider switch to succinate (8) HTN (hypertension): Continue usual home medication regimen with metoprolol, ISMN (9) Sjogren's disease: Continue low dose prednisone and cevimeline. Symptoms at baseline. May need stress dose steroids if she becomes hypotensive. (10) DVT prophylaxis: Lovenox 30mg SQ daily Admission and Anticipated Discharge Date Admission Date: 03/11/2020 History of Present Illness Chief Complaint: Lethargy Primary Care Provider: Evin Villalpando MD Naila Vega is a 74-year-old female with metastatic non-small cell lung cancer, Sjogren's, history of large B cell non-Hodgkin's lymphoma, history of ANTONIETTA and bronchiectasis who presents to the ER with generalized lethargy for 4-5 days. She is currently not undergoing any chemotherapy due to decreased performance status. She denies any change in her chronic cough. No loss of taste or smell, diarrhea, abdominal pain, fever, chills, shortness of breath or known COVID-19 exposure. She denies any chest pain, orthopnea, PND, claudication, presyncope or syncope. She denies any other acute symptoms other than generalized lethargy. In the ER she was noted to have microcytic anemia. She denies any prior GI bleeds. Notable history of epistaxis but nothing recently. She denies any change in stools, melena or bright red blood in stool. Allergies Allergy/AdvReac Type Severity Reaction Status Date / Time No Known Allergies Allergy Verified 03/11/20 19:06 Home Medications Medication Instructions Recorded Confirmed Type cevimeline 30 mg PO TIDM 06/21/18 03/11/20 History isosorbide mononitrate 60 mg PO QAM 06/21/18 03/11/20 History magnesium 500 mg PO QAM 06/21/18 03/11/20 History ondansetron 8 mg PO Q8H PRN 06/21/18 03/11/20 History potassium chloride 10 meq PO TIDM 06/21/18 03/11/20 History raloxifene 60 mg PO QPM 06/21/18 03/11/20 History ranolazine [Ranexa] 500 mg PO AMHS 06/21/18 03/11/20 History simvastatin 40 mg PO HS 06/21/18 03/11/20 History Calcium 600 + D(3) 1 cap PO BIDM 09/06/18 03/11/20 History pantoprazole 40 mg PO QAM 09/23/18 03/11/20 History immun glob G 4 gram/20 mL(20 8 gm SQ WEEKLY ml 02/16/19 03/11/20 History %)-prol-IgA 0-50 mcg/mL subcutaneous soln prednisone 1 mg tablet,delayed 3 mg PO DAILY tab 02/16/19 03/11/20 History release prochlorperazine maleate 10 mg PO Q8H PRN 04/05/19 03/11/20 History [Compazine] Plexus-Probio 5 1 dose PO DAILY 03/11/20 03/11/20 History albuterol sulfate 2 puffs INH AMPM 03/11/20 03/11/20 History aspirin [Aspirin Low Dose] 81 mg PO DAILY 03/11/20 03/11/20 History benzonatate 100 mg PO Q6H PRN 03/11/20 03/11/20 History epinephrine [EpiPen] 0.3 mg IM Q3H PRN 03/11/20 03/11/20 History metoprolol tartrate 75 mg PO AMHS 03/11/20 03/11/20 History afylljecsego-rfrdajxz-zdoohl 1 tab PO DAILY 03/11/20 03/11/20 History [Centrum Silver] nitroglycerin [Nitrostat] 0.4 mg SUBLINGUAL DIRECTED PRN 03/11/20 03/11/20 History Past Med/Surg History Medical History (Updated 03/13/20 @ 14:41 by Chantelle Alexis PA-C) Acute respiratory failure with hypoxia Bronchiectasis CAD (coronary artery disease), [place] coronary artery With stable angina COPD exacerbation Decreased diffusion capacity of lung GERD (gastroesophageal reflux disease) DIET CONTROLLED Goals of care, counseling/discussion History of lung cancer DX 1 YEAR AGO. 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 Surgical History Coronary artery bypass grafts x 4 (06/13/12) History of arthroscopy RIGHT KNEE MENISCUS History of cholecystectomy History of colonoscopy History of coronary artery bypass graft 4 VESSEL, C 6 YEARS AGO History of hysterectomy History of surgical removal of meniscus of knee Family History Unknown Heart disease Other Family history non-contributory Social History Smoking Status: Never smoker Second Hand Exposure: No; Hx Alcohol Use: No Hx Substance Use: No Preferred Language: Estonian Communication Ability: Effective Senior Asp Net Developer Required: No Beliefs That Will Affect Care: None marital status: Current Living Situation: Spouse Current Living Situation Comment: son lives at home current occupational status: retired 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 Feels Safe at Home: Yes Safety Concerns: Feels Safe At This Time Assistive Devices: None Review of Systems Review of Systems: All systems reviewed & are unremarkable except as noted in HPI & below Physical Exam Constitutional: well developed and + frail appearing; + not well nourished and no acute distress Eyes: + anicteric sclerae; normal pupil size ENMT: Mouth: oral mucous membranes not dry Respiratory: Auscultation: + crackles (Right crackles) Cardiovascular: RRR, no murmur, no edema Gastrointestinal (Abdomen): normal bowel sounds, soft, nontender, no hepatosplenomegaly Musculoskeletal: no cyanosis or clubbing, extremities motor strength 5/5 Neurologic: moves all extremities and awake; not confused Psychiatric: A+Ox3, euthymic affect Results & Data Results & Data ([facility]) Vital Signs (Past 12 Hours) Vital Signs Temp Pulse Resp BP Pulse Ox 03/11/20 17:17 79 03/11/20 17:00 75 28 H 114/64 92 03/11/20 16:45 75 35 H 93 03/11/20 16:30 76 16 117/65 95 03/11/20 16:15 98 H 24 92 03/11/20 16:00 76 30 H 126/64 91 03/11/20 15:55 76 34 H 92 03/11/20 15:49 37.5 C 03/11/20 15:35 37.5 C 76 18 133/65 92 Diagnostic Findings SINGLE VIEW CHEST IMPRESSION: 1. Emphysema and chronic parenchymal changes are similar to previous. 2. Right upper lobe consolidation is increasingly confluent as compared to 03/11/2020 and obscures a known right upper lobe mass. Correlate clinically for evidence of pneumonia. 3. Patchy airspace consolidation is seen in the right lower lung. ECG Rate (beats per minute): 76 Rhythm: normal sinus Findings: + RBBB; no acute ischemic change Comparison ECG Date: from (April 10, 2019) Change: no significant change Code Status & VTE Plan Code Status DNR/DNI as discussed with the patient VTE Prophylaxis Plan VTE Prophylaxis will be ordered: Yes PG Care Time/CCT Total # of Minutes Spent Total Time Spent with Patient: Total time spent is greater than 50% in coordination of care (as documented) at patient's floor/unit and/or counseling patient: Coding Level of Care Code 75917 Initial Inpt Care Lvl 3 Diagnoses Postobstructive pneumonia J18.9 Microcytic anemia D50.9 Severe protein-calorie malnutrition E43 Non-small cell lung cancer (NSCLC) C34.91 Laterality: right Generalized muscle weakness M62.81 Immunodeficiency D84.9 Ischemic cardiomyopathy I25.5 HTN (hypertension) I10 Sjogren's disease M35.00 DVT prophylaxis Z29.9 (1) Non-small cell lung cancer (NSCLC) Laterality: right Qualified Code(s): C34.91 - Malignant neoplasm of unspecified part of right bronchus or lung
[2020-03-11 17:43] LABS: Appearance Urine Clear (Clear); Bacteria Urine Automated Negative (Negative); Bilirubin Urine Negative (Negative); Blood Urine Negative (Negative); Color Urine Dark Yellow; Glucose Urine UA Negative (Negative); Ketones Urine Negative (Negative); Leukocyte Esterase Urine Trace (Negative); Nitrite Urine Negative (Negative); Protein Urine 1+ (Negative); RBC Urine Automated 0-4 /hpf (0-4); Urobilinogen Urine Negative (Negative)
[2020-03-11 18:11] LABS: SARS CoV2 RNA(COVID-19) ID NOW NEGATIVE (NEGATIVE)
[2020-03-11] MEDS ORDERED: NITROGLYCERIN SL 0.4 MG/TAB TAB SL PRN (20:27)
[2020-03-11] MEDS ORDERED: PROCHLORPERAZINE MALEATE 10 MG TAB PO PRN (20:27)
--- NOTE | 2020-03-11 20:35 | Electrocardiogram Report ---
Test Reason : Blood Pressure : / mmHG Vent. Rate : 076 BPM Atrial Rate : 076 BPM P-R Int : 154 ms QRS Dur : 106 ms QT Int : 442 ms P-R-T Axes : 040 033 026 degrees QTc Int : 497 ms Normal sinus rhythm Incomplete right bundle branch block Prolonged QT Abnormal ECG When compared with ECG of 05-APR-2019 13:16, No significant change was found Confirmed by Steve Heard ([id number]) on 03/11/2020 8:35:39 PM Referred By: REFERRED SELF Confirmed By:Steve Heard
[2020-03-11] MEDS: ENOXAPARIN INJ 30 MG/0.3 ML SYR SQ SCH (21:49)
[2020-03-11] MEDS: RALOXIFENE HCL 60 MG TAB PO SCH (21:49)
[2020-03-11] MEDS: RANOLAZINE 500 MG ER TAB PO SCH (21:50)
[2020-03-11] MEDS: SIMVASTATIN 20 MG TAB PO SCH (21:50)
[2020-03-11] MEDS: METOPROLOL TARTRATE 50 MG TAB PO SCH (21:50)
[2020-03-11] MEDS: PIPERACILLIN/TAZOBACTAM 3.375 GM in DEXTROSE 5% 100 ML IV SCH (23:34)
[2020-03-12] MEDS ORDERED: PIPERACILLIN/TAZOBACTAM 4.5 GM in DEXTROSE 5% 100 ML IV SCH
[2020-03-12] MEDS: ALBUTEROL HFA 8 GM INHALER INH SCH ×3 (00:57→19:12)
[2020-03-12] MEDS: [UNRECOGNIZED DRUG - REMARK] SCH ×4 (01:22→23:07)
[2020-03-12] MEDS ORDERED: ACETAMINOPHEN 500 MG TAB PO ONE (02:49)
[2020-03-12] MEDS: BENZONATATE 100 MG CAPSULE PO PRN ×2 (02:56→21:07)
[2020-03-12] MEDS: IBUPROFEN 200 MG TAB PO PRN ×2 (04:52→21:07)
[2020-03-12 05:39] LABS: Basophils # (auto) 0.01 K/uL (0-0.2); Basophils % (auto) 0.2 %; Eosinophils # (auto) 0.04 K/uL (0-0.5); Eosinophils % (auto) 0.7 %; Hematocrit (blood only) 26.2 % (37-47); Hemoglobin 8.1 g/dL (12.0-16.0); Immature Granulocytes # (auto) 0.01 K/uL (0.00-0.02); Immature Granulocytes % (auto) 0.2 %; Lymphocytes # (auto) 0.96 K/uL (1.2-3.4); Lymphocytes % (auto) 15.9 %; Mean Corpuscular Hemoglobin 23.7 pg (25-34); Mean Corpuscular Hgb Conc 30.9 g/dL (32-36); Mean Corpuscular Volume 76.6 fL (80-100); Mean Platelet Volume 9.8 fL (7.4-10.4); Monocytes # (auto) 0.81 K/uL (0.11-0.59); Monocytes % (auto) 13.4 %; Neutrophils # (auto) 4.22 K/uL (1.4-6.5); Neutrophils % (auto) 69.6 %; Platelet Count 134 K/uL (130-400); RDW Coefficient of Variation 17.7 % (11.5-14.5); RDW Standard Deviation 50.1 fL (36.4-46.3); Red Blood Count 3.42 M/uL (4.2-5.4); White Blood Count 6.05 K/uL (4.8-10.8)
[2020-03-12 06:05] LABS: BUN Creatinine Ratio 29.4 (10-20); Calcium 7.9 mg/dl (8.5-10.1); Creatinine Clr Calc Pharmacy 30.2 ml/min; Est GFR (African American) 69.7; Est GFR (Non-African American) 60.1; Potassium 4.2 mmol/L (3.5-5.1)
[2020-03-12 06:10] LABS: Ferritin 49.8 ng/ml (8-388)
[2020-03-12] MEDS: ONDANSETRON 4 MG OD TAB PO PRN ×2 (08:07→18:00)
[2020-03-12] MEDS: PIPERACILLIN/TAZOBACTAM 3.375 GM in DEXTROSE 5% 100 ML IV SCH ×2 (08:07→16:20)
[2020-03-12] MEDS: METOPROLOL TARTRATE 50 MG TAB PO SCH ×2 (09:05→20:57)
[2020-03-12] MEDS: CALCIUM 600MG + VIT D 400 IU TAB PO SCH ×2 (09:06→18:00)
[2020-03-12] MEDS: ISOSORBIDE MONO EXTENDED REL 60 MG TABCR PO SCH (09:06)
[2020-03-12] MEDS: ADVANCED PROBIOTIC 1250 MG CAPSULE PO SCH (09:06)
[2020-03-12] MEDS: PANTOprazole 40 MG TAB PO SCH (09:06)
[2020-03-12] MEDS: RANOLAZINE 500 MG ER TAB PO SCH ×2 (09:06→21:00)
[2020-03-12] MEDS: ASPIRIN 81 MG ECTAB PO SCH (09:06)
[2020-03-12] MEDS: MULTIVITAMIN TAB PO SCH (09:07)
[2020-03-12] MEDS: MAGNESIUM OXIDE 400 MG TAB PO SCH (09:07)
[2020-03-12] MEDS: predniSONE 1 MG TAB PO SCH (09:07)
[2020-03-12] MEDS: POTASSIUM CHLORIDE 10 MEQ TABCR PO SCH ×3 (09:07→18:00)
--- NOTE | 2020-03-12 10:33 | Hospitalist Progress Note ---
Date of Service March 12, 2020 Assessment & Plan (1) Postobstructive pneumonia: * Imaging with RUL mass obscured by progressive RUL consolidation, pneumonitis vs post obstructive pneumonia * Continue Zosyn 3.375g IV Q8H (on day 2 of therapy) * Patient not interested in bronchoscopy, bronchial stent etc... * Consider pulmonology referral if not improving -- stable 93% on RA currently * Continue proair 2puffs BID * Currently 93% on RA * Encourage incentive spirometry * Will add mucinex and flutter valve to help thin/clear secretions * Afebrile, WBC 6k. No longer tachypneic * Continue to monitor (2) Microcytic anemia: * Patient not interested in further workup for this which seems reasonable. Possible diet related but will get fecal occult blood to assess for GI bleed and need to at H2 javan to her usual PPI. * h/h 8.1/26.2 with MCV 76 * Iron studies with low iron, 17, trans % sat low 6, ferritin 498, transferrin 213 * Fecal occult pending --> ideally to be obtained prior to Venofer which I will order for this afternoon and likely will order additional doses and continue with PO supplementation at discharge * Of note, trop 0.037 on admission but not repeated. Will add to am labs. Likely demand secondary to anemia/above * CBC in AM (3) Severe protein-calorie malnutrition: * Dietary consult. Encourage oral intake with soft foods due to poor dentition after prior chemo. (4) Non-small cell lung cancer (NSCLC): * On no further chemo or radiation therapy per patient. Follows with Dr. De La O (5) Generalized muscle weakness: * PT/OT eval and treat (6) Immunodeficiency: * Continue Hizentra injections as an outpatient. (7) Ischemic cardiomyopathy: * Continue metoprolol tartrate -> consider switch to succinate (8) HTN (hypertension): * Continue usual home medication regimen with metoprolol, ISMN * BP stable 109/67 (9) Sjogren's disease: * Continue low dose prednisone and cevimeline. Symptoms at baseline. May need stress dose steroids if she becomes hypotensive but will hold off for now (10) DVT prophylaxis: * Lovenox 30mg SQ daily Dispo: likely to remain inpatient 1-2 days and will need PO augmentin or similar at discharge for pneumonia Admission and Anticipated Discharge Date Admission Date: March 11, 2020 Subjective Patient evaluated this morning. States usual cough and sputum production. Denies shortness of breath at this time. Had one episode of diarrhea this morning but no hat for sample collection. Discussed low iron counts in addition to pneumonia could be contributing to her weakness/lethargy. Will order venofer this afternoon once obtain fecal occult to r/o microscopic anemia. Patient denies any melena or hematochezia at this time. Follows with Dr. Cordero and states she saw him last week and does not have to follow up any more. States she was going to be set up with hospice but that she is on Hicentra and was told she is not able to be on this with hospice/palliative care. No fever, chills, chest pain, shortness of breath, abdominal pain, nausea, vo miting or dysuria at this time. Review of Systems Review of Systems: All systems reviewed & are unremarkable except as noted in HPI & below Physical Exam Constitutional: + cachectic, cooperative and comfortable; no acute distress Eyes: + anicteric sclerae and PERRL ENMT: mmm Neck: normal visual inspection and trachea midline Respiratory: normal respiratory effort; no labored breathing Auscultation: lungs clear to auscultation bilaterally, + diminished lung sounds and + crackles (RUL, posterior lung field); no wheezes Cardiovascular: RRR, no murmur, no edema Chest (Breasts): Additional Comments: L port present Gastrointestinal (Abdomen): normal bowel sounds, soft, nontender, no hepatosplenomegaly Musculoskeletal: no cyanosis or clubbing, extremities motor strength 5/5 Skin: warm, dry Psychiatric: A+Ox3, euthymic affect Lymphatic: no cervical or axillary lymphadenopathy Results & Data Results & Data ([facility]) Vital Signs (Past 12 Hours) Vital Signs Temp Pulse Resp BP Pulse Ox 03/12/20 07:17 71 93 03/12/20 07:00 37.1 C 68 16 109/67 96 03/11/20 23:18 61 117/65 03/11/20 22:56 36.9 C 57 L 16 88/58 L 92 Laboratory Results 03/12/20 03/12/20 03/11/20 Range/Units 05:23 05:23 17:30 WBC 6.05 (4.8-10.8) K/uL RBC 3.42 L (4.2-5.4) M/uL Hgb 8.1 L (12.0-16.0) g/dL Hct 26.2 L (37-47) % MCV 76.6 L (80-100) fL MCH 23.7 L (25-34) pg MCHC 30.9 L (32-36) g/dL RDW Std Deviation 50.1 H (36.4-46.3) fL RDW Coeff of Marlene 17.7 H (11.5-14.5) % Plt Count 134 (130-400) K/uL MPV 9.8 (7.4-10.4) fL Immature Gran % (Auto) 0.2 % Neut % (Auto) 69.6 % Lymph % (Auto) 15.9 % [place] % (Auto) 13.4 % Eos % (Auto) 0.7 % Baso % (Auto) 0.2 % Neut # (Auto) 4.22 (1.4-6.5) K/uL Lymph # (Auto) 0.96 L (1.2-3.4) K/uL [place] # (Auto) 0.81 H (0.11-0.59) K/uL Eos # (Auto) 0.04 (0-0.5) K/uL Baso # (Auto) 0.01 (0-0.2) K/uL Immature Gran # (Auto) 0.01 (0.00-0.02) K/uL PT (9.0-12.0) Seconds INR (0.9-1.1) APTT (21.0-31.0) Seconds PTT Ratio Sodium 136 (136-145) mmol/L Potassium 4.2 (3.5-5.1) mmol/L Chloride 108 H (98-107) mmol/L Carbon Dioxide 24 (21-32) mmol/L Anion Gap 4.0 (3-11) BUN 27 H (7-18) mg/dl Creatinine 0.93 (0.6-1.2) mg/dl Est Cr Clr Drug Dosing 30.2 ml/min Est GFR ( Amer) 69.7 Est GFR (Non-Af Amer) 60.1 BUN/Creatinine Ratio 29.4 H (10-20) Glucose 90 (70-99) mg/dl Lactate (0.4-2.0) mmol/L Calcium 7.9 L (8.5-10.1) mg/dl Magnesium (1.8-2.4) mg/dl Iron 17 L (35-150) mcg/dl Transferrin 213 (200-360) mg/dl Transferrin % Sat 6 L (15-50) % Ferritin 49.8 (8-388) ng/ml Total Bilirubin (0.2-1) mg/dl AST (15-37) U/L ALT (12-78) U/L Alkaline Phosphatase (45-117) U/L Troponin I (0-0.045) ng/ml Total Protein (6.4-8.2) gm/dl Albumin (3.4-5.0) gm/dl Globulin (2.5-4.0) gm/dl Albumin/Globulin Ratio (0.9-2) Procalcitonin (0-0.5) ng/ml Urine Color Dark Yellow Urine Appearance Clear (Clear) Urine pH 5.0 (4.5-7.5) Ur Specific [place] 1.020 (1.000-1.030) Urine Protein 1+ H (Negative) Urine Glucose (UA) Negative (Negative) Urine Ketones Negative (Negative) Urine Blood Negative (Negative) Urine Nitrite Negative (Negative) Urine Bilirubin Negative (Negative) Urine Urobilinogen Negative (Negative) Ur Leukocyte Esterase Trace H (Negative) Urine WBC (Auto) 1-5 (0-5) /hpf Urine RBC (Auto) 0-4 (0-4) /hpf U Hyaline Cast (Auto) 1-5 (0-5) /lpf U Epithel Cells (Auto) 10-20 H (0-5) /lpf Urine Bacteria (Auto) Negative (Negative) COVID-19 Eval Order Influ A Molecular Assay (Negative) Influ B Molecular Assay (Negative) SARS-CoV-2, RNA, NAAT (NEGATIVE) 03/11/20 03/11/20 03/11/20 Range/Units 17:30 16:10 15:53 WBC (4.8-10.8) K/uL RBC (4.2-5.4) M/uL Hgb (12.0-16.0) g/dL Hct (37-47) % MCV (80-100) fL MCH (25-34) pg MCHC (32-36) g/dL RDW Std Deviation (36.4-46.3) fL RDW Coeff of Marlene (11.5-14.5) % Plt Count (130-400) K/uL MPV (7.4-10.4) fL Immature Gran % (Auto) % Neut % (Auto) % Lymph % (Auto) % [place] % (Auto) % Eos % (Auto) % Baso % (Auto) % Neut # (Auto) (1.4-6.5) K/uL Lymph # (Auto) (1.2-3.4) K/uL [place] # (Auto) (0.11-0.59) K/uL Eos # (Auto) (0-0.5) K/uL Baso # (Auto) (0-0.2) K/uL Immature Gran # (Auto) (0.00-0.02) K/uL PT (9.0-12.0) Seconds INR (0.9-1.1) APTT (21.0-31.0) Seconds PTT Ratio Sodium (136-145) mmol/L Potassium (3.5-5.1) mmol/L Chloride (98-107) mmol/L Carbon Dioxide (21-32) mmol/L Anion Gap (3-11) BUN (7-18) mg/dl Creatinine (0.6-1.2) mg/dl Est Cr Clr Drug Dosing ml/min Est GFR ( Amer) Est GFR (Non-Af Amer) BUN/Creatinine Ratio (10-20) Glucose (70-99) mg/dl Lactate (0.4-2.0) mmol/L Calcium (8.5-10.1) mg/dl Magnesium (1.8-2.4) mg/dl Iron (35-150) mcg/dl Transferrin (200-360) mg/dl Transferrin % Sat (15-50) % Ferritin (8-388) ng/ml Total Bilirubin (0.2-1) mg/dl AST (15-37) U/L ALT (12-78) U/L Alkaline Phosphatase (45-117) U/L Troponin I (0-0.045) ng/ml Total Protein (6.4-8.2) gm/dl Albumin (3.4-5.0) gm/dl Globulin (2.5-4.0) gm/dl Albumin/Globulin Ratio (0.9-2) Procalcitonin 0.13 (0-0.5) ng/ml Urine Color Urine Appearance (Clear) Urine pH (4.5-7.5) Ur Specific [place] (1.000-1.030) Urine Protein (Negative) Urine Glucose (UA) (Negative) Urine Ketones (Negative) Urine Blood (Negative) Urine Nitrite (Negative) Urine Bilirubin (Negative) Urine Urobilinogen (Negative) Ur Leukocyte Esterase (Negative) Urine WBC (Auto) (0-5) /hpf Urine RBC (Auto) (0-4) /hpf U Hyaline Cast (Auto) (0-5) /lpf U Epithel Cells (Auto) (0-5) /lpf Urine Bacteria (Auto) (Negative) COVID-19 Eval [facility] Influ A Molecular Assay Negative (Negative) Influ B Molecular Assay Negative (Negative) SARS-CoV-2, RNA, NAAT NEGATIVE (NEGATIVE) 03/11/20 03/11/20 03/11/20 Range/Units 15:53 15:53 15:53 WBC (4.8-10.8) K/uL RBC (4.2-5.4) M/uL Hgb (12.0-16.0) g/dL Hct (37-47) % MCV (80-100) fL MCH (25-34) pg MCHC (32-36) g/dL RDW Std Deviation (36.4-46.3) fL RDW Coeff of Marlene (11.5-14.5) % Plt Count (130-400) K/uL MPV (7.4-10.4) fL Immature Gran % (Auto) % Neut % (Auto) % Lymph % (Auto) % [place] % (Auto) % Eos % (Auto) % Baso % (Auto) % Neut # (Auto) (1.4-6.5) K/uL Lymph # (Auto) (1.2-3.4) K/uL [place] # (Auto) (0.11-0.59) K/uL Eos # (Auto) (0-0.5) K/uL Baso # (Auto) (0-0.2) K/uL Immature Gran # (Auto) (0.00-0.02) K/uL PT 11.8 (9.0-12.0) Seconds INR 1.1 (0.9-1.1) APTT 30.8 (21.0-31.0) Seconds PTT Ratio 1.1 Sodium 135 L (136-145) mmol/L Potassium 4.3 (3.5-5.1) mmol/L Chloride 106 (98-107) mmol/L Carbon Dioxide 23 (21-32) mmol/L Anion Gap 6.0 (3-11) BUN 28 H (7-18) mg/dl Creatinine 0.85 (0.6-1.2) mg/dl Est Cr Clr Drug Dosing 36.9 ml/min Est GFR ( Amer) 77.7 Est GFR (Non-Af Amer) 67.0 BUN/Creatinine Ratio 32.6 H (10-20) Glucose 124 H (70-99) mg/dl Lactate 1.2 (0.4-2.0) mmol/L Calcium 8.2 L (8.5-10.1) mg/dl Magnesium 2.0 (1.8-2.4) mg/dl Iron (35-150) mcg/dl Transferrin (200-360) mg/dl Transferrin % Sat (15-50) % Ferritin (8-388) ng/ml Total Bilirubin 0.6 (0.2-1) mg/dl AST 52 H (15-37) U/L ALT 38 (12-78) U/L Alkaline Phosphatase 82 (45-117) U/L Troponin I 0.037 (0-0.045) ng/ml Total Protein 6.2 L (6.4-8.2) gm/dl Albumin 2.2 L (3.4-5.0) gm/dl Globulin 4.0 (2.5-4.0) gm/dl Albumin/Globulin Ratio 0.6 L (0.9-2) Procalcitonin (0-0.5) ng/ml Urine Color Urine Appearance (Clear) Urine pH (4.5-7.5) Ur Specific [place] (1.000-1.030) Urine Protein (Negative) Urine Glucose (UA) (Negative) Urine Ketones (Negative) Urine Blood (Negative) Urine Nitrite (Negative) Urine Bilirubin (Negative) Urine Urobilinogen (Negative) Ur Leukocyte Esterase (Negative) Urine WBC (Auto) (0-5) /hpf Urine RBC (Auto) (0-4) /hpf U Hyaline Cast (Auto) (0-5) /lpf U Epithel Cells (Auto) (0-5) /lpf Urine Bacteria (Auto) (Negative) COVID-19 Eval Order Influ A Molecular Assay (Negative) Influ B Molecular Assay (Negative) SARS-CoV-2, RNA, NAAT (NEGATIVE) 03/11/20 Range/Units 15:53 WBC 8.59 (4.8-10.8) K/uL RBC 3.58 L (4.2-5.4) M/uL Hgb 8.6 L (12.0-16.0) g/dL Hct 27.4 L (37-47) % MCV 76.5 L (80-100) fL MCH 24.0 L (25-34) pg MCHC 31.4 L (32-36) g/dL RDW Std Deviation 49.0 H (36.4-46.3) fL RDW Coeff of Marlene 17.5 H (11.5-14.5) % Plt Count 137 (130-400) K/uL MPV 10.0 (7.4-10.4) fL Immature Gran % (Auto) 0.3 % Neut % (Auto) 79.0 % Lymph % (Auto) 8.8 % [place] % (Auto) 11.9 % Eos % (Auto) 0.0 % Baso % (Auto) 0.0 % Neut # (Auto) 6.78 H (1.4-6.5) K/uL Lymph # (Auto) 0.76 L (1.2-3.4) K/uL [place] # (Auto) 1.02 H (0.11-0.59) K/uL Eos # (Auto) 0.00 (0-0.5) K/uL Baso # (Auto) 0.00 (0-0.2) K/uL Immature Gran # (Auto) 0.03 H (0.00-0.02) K/uL PT (9.0-12.0) Seconds INR (0.9-1.1) APTT (21.0-31.0) Seconds PTT Ratio Sodium (136-145) mmol/L Potassium (3.5-5.1) mmol/L Chloride (98-107) mmol/L Carbon Dioxide (21-32) mmol/L Anion Gap (3-11) BUN (7-18) mg/dl Creatinine (0.6-1.2) mg/dl Est Cr Clr Drug Dosing ml/min Est GFR ( Amer) Est GFR (Non-Af Amer) BUN/Creatinine Ratio (10-20) Glucose (70-99) mg/dl Lactate (0.4-2.0) mmol/L Calcium (8.5-10.1) mg/dl Magnesium (1.8-2.4) mg/dl Iron (35-150) mcg/dl Transferrin (200-360) mg/dl Transferrin % Sat (15-50) % Ferritin (8-388) ng/ml Total Bilirubin (0.2-1) mg/dl AST (15-37) U/L ALT (12-78) U/L Alkaline Phosphatase (45-117) U/L Troponin I (0-0.045) ng/ml Total Protein (6.4-8.2) gm/dl Albumin (3.4-5.0) gm/dl Globulin (2.5-4.0) gm/dl Albumin/Globulin Ratio (0.9-2) Procalcitonin (0-0.5) ng/ml Urine Color Urine Appearance (Clear) Urine pH (4.5-7.5) Ur Specific [place] (1.000-1.030) Urine Protein (Negative) Urine Glucose (UA) (Negative) Urine Ketones (Negative) Urine Blood (Negative) Urine Nitrite (Negative) Urine Bilirubin (Negative) Urine Urobilinogen (Negative) Ur Leukocyte Esterase (Negative) Urine WBC (Auto) (0-5) /hpf Urine RBC (Auto) (0-4) /hpf U Hyaline Cast (Auto) (0-5) /lpf U Epithel Cells (Auto) (0-5) /lpf Urine Bacteria (Auto) (Negative) COVID-19 Eval Order Influ A Molecular Assay (Negative) Influ B Molecular Assay (Negative) SARS-CoV-2, RNA, NAAT (NEGATIVE) Diagnostic Findings CXR IMPRESSION: 1. The previously noted mass of the right upper lobe suspicious for malignancy is partially obscured by progressive right upper lobe consolidation. Findings may reflect pneumonia or postobstructive pneumonitis. 2. Bibasilar predominant reticular nodular opacities are redemonstrated suggestive of chronic infectious or inflammatory pneumonitis. 3. Bibasilar bronchiectasis redemonstrated. PG Care Time/CCT Total # of Minutes Spent Total Time Spent with Patient: Total time spent is greater than 50% in coordination of care (as documented) at patient's floor/unit and/or counseling patient: Coding Level of Care Code 94882 Subseq Hosp Care Lvl 2 Diagnoses Postobstructive pneumonia J18.9 Microcytic anemia D50.9 Severe protein-calorie malnutrition E43 Non-small cell lung cancer (NSCLC) C34.91 Laterality: right Generalized muscle weakness M62.81 Immunodeficiency D84.9 Ischemic cardiomyopathy I25.5 HTN (hypertension) I10 Sjogren's disease M35.00 DVT prophylaxis Z29.9 (1) Non-small cell lung cancer (NSCLC) Laterality: right Qualified Code(s): C34.91 - Malignant neoplasm of unspecified part of right bronchus or lung
[2020-03-12] MEDS: HEPARIN 100 UNIT/ML 5ML FLUSH FLUSH PRN ×3 (11:35→22:14)
[2020-03-12] MEDS ORDERED: IRON SUCROSE 400 MG in SODIUM CHLORIDE 0.9% 250 ML IV ONE (16:00)
[2020-03-12] MEDS: RALOXIFENE HCL 60 MG TAB PO SCH (20:57)
[2020-03-12] MEDS: ENOXAPARIN INJ 30 MG/0.3 ML SYR SQ SCH (20:58)
[2020-03-12] MEDS: guaiFENesin 600 MG TABCR PO SCH (20:59)
[2020-03-12] MEDS: SIMVASTATIN 20 MG TAB PO SCH (21:00)
[2020-03-12] MEDS ORDERED: LOPERAMIDE HCL 2 MG CAP PO STA (21:41)
[2020-03-12] MEDS: MELATONIN 3 MG TAB PO PRN (22:12)
[2020-03-13] MEDS: PIPERACILLIN/TAZOBACTAM 3.375 GM in DEXTROSE 5% 100 ML IV SCH ×4 (00:10→23:29)
[2020-03-13] MEDS: HEPARIN 100 UNIT/ML 5ML FLUSH FLUSH PRN ×3 (05:19→23:34)
[2020-03-13 06:35] LABS: Basophils # (auto) 0.01 K/uL (0-0.2); Basophils % (auto) 0.2 %; Eosinophils # (auto) 0.08 K/uL (0-0.5); Eosinophils % (auto) 1.3 %; Hematocrit (blood only) 25.6 % (37-47); Hemoglobin 7.8 g/dL (12.0-16.0); Immature Granulocytes # (auto) 0.01 K/uL (0.00-0.02); Immature Granulocytes % (auto) 0.2 %; Lymphocytes # (auto) 0.62 K/uL (1.2-3.4); Lymphocytes % (auto) 10.2 %; Mean Corpuscular Hgb Conc 30.5 g/dL (32-36); Mean Corpuscular Volume 78.8 fL (80-100); Monocytes # (auto) 0.76 K/uL (0.11-0.59); Monocytes % (auto) 12.5 %; Neutrophils % (auto) 75.6 %; Platelet Count 150 K/uL (130-400); RDW Coefficient of Variation 17.9 % (11.5-14.5); RDW Standard Deviation 51.5 fL (36.4-46.3); Red Blood Count 3.25 M/uL (4.2-5.4); White Blood Count 6.08 K/uL (4.8-10.8)
[2020-03-13] MEDS: BENZONATATE 100 MG CAPSULE PO PRN (07:01)
[2020-03-13 07:02] LABS: BUN Creatinine Ratio 20.6 (10-20); Creatinine Clr Calc Pharmacy 25.5 ml/min; Est GFR (African American) 56.9; Est GFR (Non-African American) 49.1; Potassium 3.9 mmol/L (3.5-5.1)
[2020-03-13 07:05] LABS: Albumin Globulin Ratio 0.5 (0.9-2); Bilirubin,Total 0.5 mg/dl (0.2-1); Globulin 3.8 gm/dl (2.5-4.0); Total Protein 5.8 gm/dl (6.4-8.2)
[2020-03-13] MEDS: ALBUTEROL HFA 8 GM INHALER INH SCH ×2 (07:11→20:17)
[2020-03-13 07:13] LABS: Polychromasia 1+; Tear Drop Cells 1+
[2020-03-13] MEDS: [UNRECOGNIZED DRUG - REMARK] SCH ×3 (07:54→23:50)
--- NOTE | 2020-03-13 08:13 | XRay Report ---
SINGLE VIEW CHEST CLINICAL HISTORY: Follow-up right upper lobe consolidation. FINDINGS: An AP, portable, upright chest radiograph is compared to study dated 03/11/2020 and correla laila with chest CT dated 09/27/2019. The examination is degraded by portable technique and patient rotat ion. A left subclavian central venous infusion port is unchanged in position. The patient is status p ost midline sternotomy. The cardiomediastinal silhouette is unremarkable noting atherosclerotic calci fication of the thoracic aorta. The pulmonary vasculature is noncongested. Emphysema, chronic interst itial thickening, and diffuse nodularity is similar to previous. Again seen is right upper lobe conso lidation which obscures the patient's right upper lobe mass. Patchy airspace opacities are seen in th e right lower lobe. The left lung appears clear noting basilar atelectasis. No large pleural effusion or pneumothorax is seen. The skeletal structures are osteopenic. The bony thorax is grossly intact. Cholecystectomy clips are seen in the right upper quadrant. IMPRESSION: 1. Emphysema and chronic parenchymal changes are similar to previous. 2. Right upper lobe consolidation is increasingly confluent as compared to 03/11/2020 and obscures a known right upper lobe mass. Correlate clinically for evidence of pneumonia. 3. Patchy airspace consolidation is seen in the right lower lung. Electronically signed by: Han Bolanos M.D. 03/13/2020 8:11 AM
[2020-03-13] MEDS: ONDANSETRON 4 MG OD TAB PO PRN (09:13)
[2020-03-13] MEDS: guaiFENesin 600 MG TABCR PO SCH ×2 (09:14→20:43)
[2020-03-13] MEDS: RANOLAZINE 500 MG ER TAB PO SCH ×2 (09:14→20:43)
[2020-03-13] MEDS: ADVANCED PROBIOTIC 1250 MG CAPSULE PO SCH (09:14)
[2020-03-13] MEDS: MAGNESIUM OXIDE 400 MG TAB PO SCH (09:15)
[2020-03-13] MEDS: CALCIUM 600MG + VIT D 400 IU TAB PO SCH ×2 (09:15→18:08)
[2020-03-13] MEDS: METOPROLOL TARTRATE 50 MG TAB PO SCH ×2 (09:15→20:43)
[2020-03-13] MEDS: POTASSIUM CHLORIDE 10 MEQ TABCR PO SCH ×3 (09:15→18:08)
[2020-03-13] MEDS: ASPIRIN 81 MG ECTAB PO SCH (09:15)
[2020-03-13] MEDS: MULTIVITAMIN TAB PO SCH (09:16)
[2020-03-13] MEDS: predniSONE 1 MG TAB PO SCH (09:16)
[2020-03-13] MEDS: ISOSORBIDE MONO EXTENDED REL 60 MG TABCR PO SCH (09:16)
[2020-03-13] MEDS: PANTOprazole 40 MG TAB PO SCH (09:16)
--- NOTE | 2020-03-13 09:35 | Hospitalist Progress Note ---
Date of Service March 13, 2020 Assessment & Plan (1) Postobstructive pneumonia: Imaging with RUL mass obscured by progressive RUL consolidation, pneumonitis vs post obstructive pneumonia * Continue Zosyn 3.375g IV Q8H (on day 3 of therapy) * --> Added Azithromycin for broadened coverage * Consider pulmonology referral if not improving -- stable 93% on RA currently * Continue proair 2puffs BID, will add albuterol neb prn (patient did have O2 sat drop to 83% last evening, 03/12) * Supplemental O2 to maintain sat >89% * Currently 93% on RA * Encourage incentive spirometry, added flutter valve * Continue mucinex and flutter valve to help thin/clear secretions * Repeat CXR this morning worse * Pulmonary consulted -- appreciate recs * Procal 0.13 * CT Chest with RUL consolidation in post-obstructive pattern --> short term follow up CT in 6-8 week for resolution recommended * Continue to monitor (2) Microcytic anemia: * Patient not interested in further workup for this which seems reasonable. Possible diet related but will get fecal occult blood to assess for GI bleed and need to at H2 javan to her usual PPI. * h/h 8.1/26.2 on 03/12 with MCV 76 * Iron studies with low iron, 17, trans % sat low 6, ferritin 498, transferrin 213 and received IV Venofer x 1 on 03/12. Will need continued supplementation * H/h dropped to 7.8/25.6 today and patient currently receiving 1 unit PRBC. Fecal occult NEGATIVE * Troponin trended up and back down likely demand ischemia. * Chest pain this morning with trop 0.023, EKG unchanged, trending back down 0.018 * CBC in AM (3) Severe protein-calorie malnutrition: * Dietary consult. Encourage oral intake with soft foods due to poor dentition after prior chemo. (4) Non-small cell lung cancer (NSCLC): * On no further chemo or radiation therapy per patient. Follows with Dr. De La O * Set up with [facility] -- having CM reach back out to re-establish as noted in HPI (5) Generalized muscle weakness: * PT/OT eval and treat (6) Immunodeficiency: * Continue Hizentra injections as an outpatient. (7) Ischemic cardiomyopathy: * Continue metoprolol tartrate -> consider switch to succinate (8) HTN (hypertension): * Continue usual home medication regimen with metoprolol, ISMN * BP stable 134/74 (9) Sjogren's disease: * Continue low dose prednisone and cevimeline. Symptoms at baseline. May need stress dose steroids if she becomes hypotensive but will hold off for now (10) DVT prophylaxis: * Lovenox 30mg SQ daily Dispo: continued inpatient stay (11) Diarrhea: * x4 today but by report not classic for cdiff * Will obtain stool for cdiff, culture (did have staph in stool Mar 2019) * Imodium prn Admission and Anticipated Discharge Date Admission Date: March 11, 2020 Subjective Patient evaluated this morning. Breathing a little more difficult today to get air in. Did have some nausea and shortness of breath earlier this morning and nausea is resolved. Her breathing is currently controlled. No sputum production although she states she has been using the incentive spirometer and flutter valve consistently without difficulty. Does endorse some chills but no fever. Eating/drinking without difficulty. Discussed ordering a unit of blood for low hemoglobin and worsening CXR and that we will reach out to pulm team for consultation. Has had blood transfusions in the past without issues. Hour after being seen patient reported chest pain following coughing. EKG appears unchanged. Trop minimally elevated likely from anemia/demand but will trend. Seen this afternoon.Discussed pulm recommendations. No further chest pain but endorses fatigue. Multiple bowel movements this afternoon and requesting Imodium. Updated Ray via phone this afternoon. Per conversation with CM, pt on board with [facility]/Palliative care although patient and believe not able due to Hizentra injections he gives her weekly on Fridays. Could still qualify for palliative care with hospice transition when that time comes. CM to reach out to them (previous provider let go that was following due to COVID layoffs). Review of Systems Review of Systems: All systems reviewed & are unremarkable except as noted in HPI & below Physical Exam Constitutional: + cachectic, cooperative and comfortable; no acute distress fatigued appearing Eyes: + anicteric sclerae and PERRL ENMT: Ears: no hearing impairment Nose: no external nose abnormality Neck: normal visual inspection and trachea midline Respiratory: normal respiratory effort; no labored breathing Auscultation: lungs clear to auscultation bilaterally, + diminished lung sounds (RUL) and + crackles (RUL, posterior lung day); no wheezes Cardiovascular: RRR, no murmur, no edema Chest (Breasts): Additional Comments: L port Gastrointestinal (Abdomen): normal bowel sounds, soft, nontender, no hepatosplenomegaly Musculoskeletal: no cyanosis or clubbing, extremities motor strength 5/5 Skin: cool, dry Psychiatric: Orientation: alert, oriented x 3 and cooperative Lymphatic: no cervical or axillary lymphadenopathy Results & Data Results & Data ([facility]) Vital Signs (Past 12 Hours) Vital Signs Temp Pulse Resp BP Pulse Ox 03/13/20 08:20 36.6 C 76 18 145/81 H 91 03/13/20 07:11 70 20 83 L 03/12/20 23:05 37.1 C 68 16 126/75 90 Laboratory Results 03/13/20 03/13/20 03/13/20 Range/Units 13:35 12:11 09:55 WBC (4.8-10.8) K/uL RBC (4.2-5.4) M/uL Hgb (12.0-16.0) g/dL Hct (37-47) % MCV (80-100) fL MCH (25-34) pg MCHC (32-36) g/dL RDW Std Deviation (36.4-46.3) fL RDW Coeff of Marlene (11.5-14.5) % Plt Count (130-400) K/uL MPV (7.4-10.4) fL Immature Gran % (Auto) % Neut % (Auto) % Lymph % (Auto) % Pine % (Auto) % Eos % (Auto) % Baso % (Auto) % Neut # (Auto) (1.4-6.5) K/uL Lymph # (Auto) (1.2-3.4) K/uL Pine # (Auto) (0.11-0.59) K/uL Eos # (Auto) (0-0.5) K/uL Baso # (Auto) (0-0.2) K/uL Immature Gran # (Auto) (0.00-0.02) K/uL Polychromasia Tear Drop Cells Sodium (136-145) mmol/L Potassium (3.5-5.1) mmol/L Chloride (98-107) mmol/L Carbon Dioxide (21-32) mmol/L Anion Gap (3-11) BUN (7-18) mg/dl Creatinine (0.6-1.2) mg/dl Est Cr Clr Drug Dosing ml/min Est GFR ( Amer) Est GFR (Non-Af Amer) BUN/Creatinine Ratio (10-20) Glucose (70-99) mg/dl Calcium (8.5-10.1) mg/dl Total Bilirubin (0.2-1) mg/dl AST (15-37) U/L ALT (12-78) U/L Alkaline Phosphatase (45-117) U/L Troponin I 0.018 (0-0.045) ng/ml Total Protein (6.4-8.2) gm/dl Albumin (3.4-5.0) gm/dl Globulin (2.5-4.0) gm/dl Albumin/Globulin Ratio (0.9-2) Stool Occult Bld Scrn (Negative) Stl C. diff Tox B Gene Pending Blood Type A Positive Antibody Screen NEGATIVE Crossmatch See Detail 03/13/20 03/13/20 03/13/20 Range/Units 06:17 06:17 06:17 WBC 6.08 (4.8-10.8) K/uL RBC 3.25 L (4.2-5.4) M/uL Hgb 7.8 L (12.0-16.0) g/dL Hct 25.6 L (37-47) % MCV 78.8 L (80-100) fL MCH 24.0 L (25-34) pg MCHC 30.5 L (32-36) g/dL RDW Std Deviation 51.5 H (36.4-46.3) fL RDW Coeff of Marlene 17.9 H (11.5-14.5) % Plt Count 150 (130-400) K/uL MPV 10.0 (7.4-10.4) fL Immature Gran % (Auto) 0.2 % Neut % (Auto) 75.6 % Lymph % (Auto) 10.2 % Pine % (Auto) 12.5 % Eos % (Auto) 1.3 % Baso % (Auto) 0.2 % Neut # (Auto) 4.60 (1.4-6.5) K/uL Lymph # (Auto) 0.62 L (1.2-3.4) K/uL Pine # (Auto) 0.76 H (0.11-0.59) K/uL Eos # (Auto) 0.08 (0-0.5) K/uL Baso # (Auto) 0.01 (0-0.2) K/uL Immature Gran # (Auto) 0.01 (0.00-0.02) K/uL Polychromasia 1+ Tear Drop Cells 1+ Sodium 139 (136-145) mmol/L Potassium 3.9 (3.5-5.1) mmol/L Chloride 109 H (98-107) mmol/L Carbon Dioxide 23 (21-32) mmol/L Anion Gap 7.0 (3-11) BUN 23 H (7-18) mg/dl Creatinine 1.10 (0.6-1.2) mg/dl Est Cr Clr Drug Dosing 25.5 ml/min Est GFR ( Amer) 56.9 Est GFR (Non-Af Amer) 49.1 BUN/Creatinine Ratio 20.6 H (10-20) Glucose 123 H (70-99) mg/dl Calcium 8.0 L (8.5-10.1) mg/dl Total Bilirubin 0.5 (0.2-1) mg/dl AST 41 H (15-37) U/L ALT 30 (12-78) U/L Alkaline Phosphatase 75 (45-117) U/L Troponin I 0.023 (0-0.045) ng/ml Total Protein 5.8 L (6.4-8.2) gm/dl Albumin 2.0 L (3.4-5.0) gm/dl Globulin 3.8 (2.5-4.0) gm/dl Albumin/Globulin Ratio 0.5 L (0.9-2) Stool Occult Bld Scrn (Negative) Stl C. diff Tox B Gene Blood Type Antibody Screen Crossmatch 03/12/20 03/12/20 Range/Units 14:55 13:50 WBC (4.8-10.8) K/uL RBC (4.2-5.4) M/uL Hgb (12.0-16.0) g/dL Hct (37-47) % MCV (80-100) fL MCH (25-34) pg MCHC (32-36) g/dL RDW Std Deviation (36.4-46.3) fL RDW Coeff of Marlene (11.5-14.5) % Plt Count (130-400) K/uL MPV (7.4-10.4) fL Immature Gran % (Auto) % Neut % (Auto) % Lymph % (Auto) % Pine % (Auto) % Eos % (Auto) % Baso % (Auto) % Neut # (Auto) (1.4-6.5) K/uL Lymph # (Auto) (1.2-3.4) K/uL Pine # (Auto) (0.11-0.59) K/uL Eos # (Auto) (0-0.5) K/uL Baso # (Auto) (0-0.2) K/uL Immature Gran # (Auto) (0.00-0.02) K/uL Polychromasia Tear Drop Cells Sodium (136-145) mmol/L Potassium (3.5-5.1) mmol/L Chloride (98-107) mmol/L Carbon Dioxide (21-32) mmol/L Anion Gap (3-11) BUN (7-18) mg/dl Creatinine (0.6-1.2) mg/dl Est Cr Clr Drug Dosing ml/min Est GFR ( Amer) Est GFR (Non-Af Amer) BUN/Creatinine Ratio (10-20) Glucose (70-99) mg/dl Calcium (8.5-10.1) mg/dl Total Bilirubin (0.2-1) mg/dl AST (15-37) U/L ALT (12-78) U/L Alkaline Phosphatase (45-117) U/L Troponin I 0.019 (0-0.045) ng/ml Total Protein (6.4-8.2) gm/dl Albumin (3.4-5.0) gm/dl Globulin (2.5-4.0) gm/dl Albumin/Globulin Ratio (0.9-2) Stool Occult Bld Scrn Negative (Negative) Stl C. diff Tox B Gene Blood Type Antibody Screen Crossmatch Diagnostic Findings CXR IMPRESSION: 1. Emphysema and chronic parenchymal changes are similar to previous. 2. Right upper lobe consolidation is increasingly confluent as compared to 03/11/2020 and obscures a known right upper lobe mass. Correlate clinically for evidence of pneumonia. 3. Patchy airspace consolidation is seen in the right lower lung. Chest CT IMPRESSION: 1. Known right upper lobe mass largely obscured by right upper lobe consolidation suggestive of pneumonia. Opacification of the segmental bronchus to the apical segment of the right upper lobe. Mild right upper lobe volume loss. Short-term follow-up chest CT is recommended. 2. Innumerable nodules throughout the lungs. Mild decrease in size of several these nodules. These likely reflect a combination metastatic disease and inflammatory nodules. 3. Trace right pleural effusion. PG Care Time/CCT Total # of Minutes Spent Total Time Spent with Patient: Total time spent is greater than 50% in coordination of care (as documented) at patient's floor/unit and/or counseling patient: Coding Level of Care Code 83504 Subseq Hosp Care Lvl 3 Diagnoses Postobstructive pneumonia J18.9 Microcytic anemia D50.9 Severe protein-calorie malnutrition E43 Non-small cell lung cancer (NSCLC) C34.91 Laterality: right Generalized muscle weakness M62.81 Immunodeficiency D84.9 Ischemic cardiomyopathy I25.5 HTN (hypertension) I10 Sjogren's disease M35.00 DVT prophylaxis Z29.9 Diarrhea R19.7 (1) Non-small cell lung cancer (NSCLC) Laterality: right Qualified Code(s): C34.91 - Malignant neoplasm of unspecified part of right bronchus or lung
[2020-03-13] MEDS ORDERED: SODIUM CHLORIDE 0.9% 250 ML IV PRN (09:39)
[2020-03-13] MEDS ORDERED: LORazepam 0.5 MG/1 ML VIAL IV PRN (09:50)
[2020-03-13] MEDS ORDERED: AZITHROMYCIN 500 MG in DEXTROSE 5% 250 ML IV ONE (10:00)
--- NOTE | 2020-03-13 11:03 | CT Scan Report ---
CT OF THE CHEST WITHOUT IV CONTRAST CLINICAL HISTORY: f/u RUL infiltrate. History of non-small cell lung cancer. COMPARISON STUDY: PET/CT January 10, 2019. Chest CT September 27, 2019. Chest radiograph March 13. CT DOSE: 229.41 mGy.cm TECHNIQUE: Axial images of the chest were obtained without IV contrast. Images were reviewed in the axial, sagittal, and coronal planes. IV contrast was not administered for this examination. Automat ed exposure control was utilized for the study. A dose lowering technique was utilized adhering to t he principles of ALARA. FINDINGS: A left subclavian Dyqzju-q-Cgpt is in place. No enlarged axillary, mediastinal or hilar ly mph nodes are identified however sensitivity for detection of right hilar adenopathy is diminished on this unenhanced examination. The known right upper lobe mass shown on CT of September 27, 2019 is largely obscured by right upper lobe consolidation. A cavity within this mass was shown on prior exam. Note i s made of opacification of the segmental branch to the apical segment of the right upper lobe shown b est on axial image 94 of 276. There is mild right upper lobe volume loss. Right middle lobe volume lo ss with opacity similar to prior exam. Innumerable pulmonary nodules throughout the lungs are again n oted. Several these have decreased in size. Index left lower lobe nodule on image 191 of 276 measures 8 mm. It previously measured 9 mm. Evaluation of the lungs is suboptimal given respiratory motion. T here is no pneumothorax. A trace right pleural effusion is present. Moderate cardiomegaly is noted. T here is extensive coronary artery calcification. There is no pericardial effusion. There are median s ternotomy wires and postoperative findings from bypass grafting. The gallbladder surgically absent. A hypodense right hepatic dome lesion is unchanged. This is benign. There are no suspicious lesions wi thin visualized skeletal structures. IMPRESSION: 1. Known right upper lobe mass largely obscured by right upper lobe consolidation suggestive of pneum onia. Opacification of the segmental bronchus to the apical segment of the right upper lobe. Mild rig ht upper lobe volume loss. Short-term follow-up chest CT is recommended. 2. Innumerable nodules throughout the lungs. Mild decrease in size of several these nodules. These l ikely reflect a combination metastatic disease and inflammatory nodules. 3. Trace right pleural effusion. ACT 112: Negative or not required by law. Electronically signed by: Remington Melvin M.D. 03/13/2020 11:01 AM
[2020-03-13] MEDS: IBUPROFEN 200 MG TAB PO PRN ×2 (13:25→23:33)
--- NOTE | 2020-03-13 13:53 | Pulmonary Consultation ---
Date of Consultation March 13, 2020 Assessment & Plan (1) Pneumonia: CT chest 03/13/2020 personally reviewed: Right upper lobe tree-in-bud opacities along with dense consolidative process is appreciated there is also narrowing of the uptake of the right upper lobe bronchiectasis and volume loss of the right middle lobe, multiple pulmonary nodules appreciated bilaterally upper and lower lobes there is volume loss of the right upper lobe with traction of the hilum to the right upper side. Minimal mediastinal lymphadenopathy --Right upper lobe pneumonia In a patient who has history of non small cell lung cancer There is very dense consolidative process appreciated in the right upper lobe with volume loss, pneumonia seems to follow post obstructive pattern We will continue with azithromycin and Zosyn for the time being Repeat procalcitonin Sputum culture. Patient also has history of ANTONIETTA will order AFB culture as well O2 supplementation to keep O2 saturation between 88-92 Patient will need repeat CT chest in approximately 6-8 weeks to make sure there is resolution of the pneumonia. Preferably with contrast to look at the mediastinum as well. I do not think any invasive procedure including bronchoscopy or stenting the right upper lobe will be beneficial given the extent of lung cancer and poor functional status that patient has. --History of non-small cell lung cancer diagnosed 2017 with relapse May 2018 S/p chemotherapy Due to decline in functional status she is not getting any more therapy right now Follows up with oncology who recommends palliative care Plan: Continue with antibiotics for minimum of 10 days. Follow sputum culture. Continue with guaifenesin Please note the above document was generated using voice recognition software. It may contain grammatical, syntax or spelling errors.Any formal questions or concerns about the content, text or information contained within the body of this dictation should be directly addressed to the provider for clarification. (2) Bronchiectasis: (3) Lung cancer: Laterality: unspecified laterality Lung location: unspecified part of lung Qualified Code(s): C34.90 - Malignant neoplasm of unspecified part of unspecified bronchus or lung History of Present Illness Attending Physician: Willie Avina MD History of Present Illness 74-year-old female with past medical history of non-small cell lung cancer s/p chemo following up with oncology, B-cell non-Hodgkin's lymphoma, Sjogren's and history of ANTONIETTA and bronchiectasis was admitted to the hospital because of right upper lobe pneumonia Pulmonary were consulted as there was no improvement in the consolidative process while being on 2 days of antibiotics. At the time of examination patient had just returned from the washroom. Vital signs were being done at the time of examination. Her saturation was 95% on room air after exertion. She was not tachycardic. Patient states that she is doing better compared to before. Still complains of mild shortness of breath. She has coughing was not bringing up any phlegm. Denies any chest pain, no headache, no nausea, no vomiting. No blurry vision. She does complain of not so good appetite. No fever or chills. Patient was asking when she could go home. Social history: Non-smoker. Allergies Allergy/AdvReac Type Severity Reaction Status Date / Time No Known Allergies Allergy Verified 03/11/20 19:06 Home Medications Medication Instructions Recorded Confirmed Type cevimeline 30 mg PO TIDM 06/21/18 03/11/20 History isosorbide mononitrate 60 mg PO QAM 06/21/18 03/11/20 History magnesium 500 mg PO QAM 06/21/18 03/11/20 History ondansetron 8 mg PO Q8H PRN 06/21/18 03/11/20 History potassium chloride 10 meq PO TIDM 06/21/18 03/11/20 History raloxifene 60 mg PO QPM 06/21/18 03/11/20 History ranolazine [Ranexa] 500 mg PO AMHS 06/21/18 03/11/20 History simvastatin 40 mg PO HS 06/21/18 03/11/20 History Calcium 600 + D(3) 1 cap PO BIDM 09/06/18 03/11/20 History pantoprazole 40 mg PO QAM 09/23/18 03/11/20 History immun glob G 4 gram/20 mL(20 8 gm SQ WEEKLY ml 02/16/19 03/11/20 History %)-prol-IgA 0-50 mcg/mL subcutaneous soln prednisone 1 mg tablet,delayed 3 mg PO DAILY tab 02/16/19 03/11/20 History release prochlorperazine maleate 10 mg PO Q8H PRN 04/05/19 03/11/20 History [Compazine] Plexus-Probio 5 1 dose PO DAILY 03/11/20 03/11/20 History albuterol sulfate 2 puffs INH AMPM 03/11/20 03/11/20 History aspirin [Aspirin Low Dose] 81 mg PO DAILY 03/11/20 03/11/20 History benzonatate 100 mg PO Q6H PRN 03/11/20 03/11/20 History epinephrine [EpiPen] 0.3 mg IM Q3H PRN 03/11/20 03/11/20 History metoprolol tartrate 75 mg PO AMHS 03/11/20 03/11/20 History dmwebaqlfash-pbwqaxix-zwsyzx 1 tab PO DAILY 03/11/20 03/11/20 History [Centrum Silver] nitroglycerin [Nitrostat] 0.4 mg SUBLINGUAL DIRECTED PRN 03/11/20 03/11/20 History Patient History Medical History (Updated 03/13/20 @ 14:41 by Chantelle Alexis PA-C) Acute respiratory failure with hypoxia Bronchiectasis CAD (coronary artery disease), [facility] [place] coronary artery With stable angina COPD exacerbation Decreased diffusion capacity of lung GERD (gastroesophageal reflux disease) DIET CONTROLLED Goals of care, counseling/discussion History of lung cancer DX 1 YEAR AGO. 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 Surgical History Coronary artery bypass grafts x 4 (06/13/12) History of arthroscopy RIGHT KNEE MENISCUS History of cholecystectomy History of colonoscopy History of coronary artery bypass graft 4 VESSEL, [facility] 6 YEARS AGO History of hysterectomy History of surgical removal of meniscus of knee Family History Unknown Heart disease Other Family history non-contributory Social History Smoking Status: Never smoker Second Hand Exposure: No; Hx Alcohol Use: No Hx Substance Use: No Preferred Language: German Communication Ability: Effective Manager Mobility Required: No Beliefs That Will Affect Care: None marital status: Current Living Situation: Spouse Current Living Situation Comment: son lives at home current occupational status: retired 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 Feels Safe at Home: Yes Safety Concerns: Feels Safe At This Time Assistive Devices: None Review of Systems Review of Systems: All systems reviewed & are unremarkable except as noted in HPI & below Physical Exam Physical Exam: Constitutional: No acute distress HEENT: EOMI, PERRLA Respiratory system: Decreased air entry bilaterally, positive crackles bilateral lower lobes as well as right upper anterior knee, no wheeze, no rhonchi CVS: S1-S2 positive, no murmurs or gallops Abdomen: Soft, nontender, nondistended, positive bowel sounds x4 Extremities: +2 pulses bilaterally radialis/ dorsalis pedis, no cyanosis, no edema Neuro: Awake alert oriented x3 Psych: Normal mood and affect G/U: No Matias Skin: no rashes, warm and dry Lymphatic: no cervical or axillary lymphadenopathy Results & Data Results & Data ([facility]) Vital Signs (Past 12 Hours) Vital Signs Temp Pulse Pulse Resp BP BP Pulse Ox 03/13/20 12:45 36.9 C 83 17 134/74 93 03/13/20 12:29 36.5 C 81 20 121/76 96 03/13/20 12:13 36.7 C 82 20 133/71 96 03/13/20 09:44 82 18 162/82 H 94 03/13/20 08:20 36.6 C 76 18 145/81 H 91 03/13/20 07:11 70 20 83 L 03/13/20 06:17 03/13/20 06:17 PG Care Time/CCT Total # of Minutes Spent Total Time Spent with Patient: Total time spent is greater than 50% in coordination of care (as documented) at patient's floor/unit and/or counseling patient: Coding Level of Care Code 94701 Initial Inpt Care Lvl 3 Diagnoses Pneumonia J18.9 Bronchiectasis J47.9 Lung cancer C34.90 Laterality: unspecified laterality Lung location: unspecified part of lung
[2020-03-13] MEDS ORDERED: ACETAMINOPHEN 325 MG TAB PO PRN (14:15)
[2020-03-13] MEDS ORDERED: ALBUTEROL 0.083% NEBU SOLN 3 ML VIAL NEB PRN (14:35)
[2020-03-13] MEDS: LOPERAMIDE HCL 2 MG CAP PO PRN ×2 (15:28→20:42)
--- NOTE | 2020-03-13 16:55 | Electrocardiogram Report ---
Test Reason : Blood Pressure : / mmHG Vent. Rate : 082 BPM Atrial Rate : 082 BPM P-R Int : 148 ms QRS Dur : 118 ms QT Int : 458 ms P-R-T Axes : 022 018 021 degrees QTc Int : 535 ms Normal sinus rhythm Right bundle branch block Abnormal ECG When compared with ECG of 11-MAR-2020 15:42, No significant change was found Confirmed by Orlando Tian ([id number]) on 03/13/2020 4:55:32 PM Referred By: REFERRED SELF Confirmed By:Orlando Tian
[2020-03-13 20:28] LABS: Appearance Urine Clear (Clear); Bilirubin Urine Negative (Negative); Blood Urine 2+ (Negative); Color Urine Yellow; Glucose Urine UA Negative (Negative); Ketones Urine Negative (Negative); Leukocyte Esterase Urine Trace (Negative); Nitrite Urine Negative (Negative); Protein Urine Negative (Negative); Specific Gravity Urine 1.012 (1.000-1.030); Urobilinogen Urine Negative (Negative)
[2020-03-13 20:37] LABS: Bacteria Urine Automated Negative (Negative); Cast Urine Automated 0 /lpf (0-5); Epithelial Cell Urine Auto 0-5 /lpf (0-5); RBC Urine Automated 0-4 /hpf (0-4)
[2020-03-13] MEDS: RALOXIFENE HCL 60 MG TAB PO SCH (20:42)
[2020-03-13] MEDS: ENOXAPARIN INJ 30 MG/0.3 ML SYR SQ SCH (20:43)
[2020-03-13] MEDS: SIMVASTATIN 20 MG TAB PO SCH (20:43)
[2020-03-13] MEDS: MELATONIN 3 MG TAB PO PRN (23:29)
[2020-03-14] MEDS: HEPARIN 100 UNIT/ML 5ML FLUSH FLUSH PRN ×2 (05:39→14:03)
[2020-03-14] MEDS: LOPERAMIDE HCL 2 MG CAP PO PRN ×2 (05:58→11:20)
[2020-03-14 06:45] LABS: Hematocrit (blood only) 31.2 % (37-47); Hemoglobin 9.8 g/dL (12.0-16.0); Mean Corpuscular Hgb Conc 31.4 g/dL (32-36); Mean Corpuscular Volume 79.6 fL (80-100); Mean Platelet Volume 10.6 fL (7.4-10.4); Platelet Count 153 K/uL (130-400); RDW Coefficient of Variation 17.5 % (11.5-14.5); RDW Standard Deviation 50.1 fL (36.4-46.3); Red Blood Count 3.92 M/uL (4.2-5.4); White Blood Count 5.38 K/uL (4.8-10.8)
[2020-03-14 06:53] LABS: Albumin Level 2.1 gm/dl (3.4-5.0); BUN Creatinine Ratio 17.3 (10-20); Creatinine Clr Calc Pharmacy 30.9 ml/min; Est GFR (African American) 71.5; Est GFR (Non-African American) 61.7; Magnesium 2.1 mg/dl (1.8-2.4); Potassium 4.1 mmol/L (3.5-5.1)
[2020-03-14 06:56] LABS: Albumin Globulin Ratio 0.6 (0.9-2); Bilirubin,Total 0.9 mg/dl (0.2-1); Globulin 3.7 gm/dl (2.5-4.0); Total Protein 5.8 gm/dl (6.4-8.2)
[2020-03-14] MEDS: ALBUTEROL HFA 8 GM INHALER INH SCH (06:57)
[2020-03-14] MEDS ORDERED: AZITHROMYCIN 250 MG in DEXTROSE 5% 250 ML IV SCH ×2 (09:00→14:00)
--- NOTE | 2020-03-14 09:08 | XRay Report ---
XR chest 1V portable HISTORY: Right upper lobe mass and consolidation. COMPARISON: Chest 03/13/2020. FINDINGS: No pneumothorax. Trace right pleural effusion persists. The heart remains normal in size. L eft subclavian Port-A-Cath remains at the SVC. There are poststernotomy changes. Emphysema. Right upp er lobe mass and consolidation persists. Diffuse interstitial thickening remains unchanged. Patchy ai rspace opacities within the right lung base are also unchanged. IMPRESSION: No change in the right upper lobe mass and right lung airspace opacities. ACT 112: Negative or not required by law. Electronically signed by: Bucky Mclain M.D. 03/14/2020 9:07 AM
[2020-03-14] MEDS: METOPROLOL TARTRATE 50 MG TAB PO SCH (09:32)
[2020-03-14] MEDS: MAGNESIUM OXIDE 400 MG TAB PO SCH (09:32)
[2020-03-14] MEDS: predniSONE 1 MG TAB PO SCH (09:32)
[2020-03-14] MEDS: guaiFENesin 600 MG TABCR PO SCH (09:32)
[2020-03-14] MEDS: MULTIVITAMIN TAB PO SCH (09:32)
[2020-03-14] MEDS: PANTOprazole 40 MG TAB PO SCH (09:32)
[2020-03-14] MEDS: ISOSORBIDE MONO EXTENDED REL 60 MG TABCR PO SCH (09:32)
[2020-03-14] MEDS: ADVANCED PROBIOTIC 1250 MG CAPSULE PO SCH (09:32)
[2020-03-14] MEDS: ASPIRIN 81 MG ECTAB PO SCH (09:32)
[2020-03-14] MEDS: RANOLAZINE 500 MG ER TAB PO SCH (09:32)
[2020-03-14] MEDS: CALCIUM 600MG + VIT D 400 IU TAB PO SCH (09:33)
[2020-03-14] MEDS: POTASSIUM CHLORIDE 10 MEQ TABCR PO SCH ×2 (09:33→11:20)
[2020-03-14] MEDS: PIPERACILLIN/TAZOBACTAM 3.375 GM in DEXTROSE 5% 100 ML IV SCH (09:33)
[2020-03-14] MEDS: [UNRECOGNIZED DRUG - REMARK] SCH (09:33)
--- NOTE | 2020-03-14 09:34 | Hospitalist Progress Note ---
Date of Service March 14, 2020 Assessment & Plan Admission and Anticipated Discharge Date Admission Date: March 11, 2020 Results & Data Results & Data ([facility]) Vital Signs (Past 12 Hours) Vital Signs Temp Pulse Resp BP Pulse Ox 03/14/20 08:01 37.3 C 77 16 137/83 91 03/14/20 06:57 78 18 91 03/13/20 22:46 36.7 C 70 16 136/76 93 PG Care Time/CCT Total # of Minutes Spent Total Time Spent with Patient: Total time spent is greater than 50% in coordination of care (as documented) at patient's floor/unit and/or counseling patient: Coding
--- NOTE | 2020-03-14 12:38 | Discharge Summary ---
Date of Service March 14, 2020 Admission HPI Per Admitting Provider Naila Vega is a 74-year-old female with metastatic non-small cell lung cancer, Sjogren's, history of large B cell non-Hodgkin's lymphoma, history of ANTONIETTA and bronchiectasis who presents to the ER with generalized lethargy for 4-5 days. She is currently not undergoing any chemotherapy due to decreased performance status. She denies any change in her chronic cough. No loss of taste or smell, diarrhea, abdominal pain, fever, chills, shortness of breath or known COVID-19 exposure. She denies any chest pain, orthopnea, PND, claudication, presyncope or syncope. She denies any other acute symptoms other than ge neralized lethargy. In the ER she was noted to have microcytic anemia. She denies any prior GI bleeds. Notable history of epistaxis but nothing recently. She denies any change in stools, melena or bright red blood in stool. Admission Exam Per Admitting Provider Constitutional: well developed and + frail appearing; + not well nourished and no acute distress Eyes: + anicteric sclerae; normal pupil size ENMT: Mouth: oral mucous membranes not dry Respiratory: Auscultation: + crackles (Right crackles) Cardiovascular: RRR, no murmur, no edema Gastrointestinal (Abdomen): normal bowel sounds, soft, nontender, no hepatosplenomegaly Musculoskeletal: no cyanosis or clubbing, extremities motor strength 5/5 Neurologic: moves all extremities and awake; not confused Psychiatric: A+Ox3, euthymic affect Principal Diagnosis Post-Obstructive Pneumonia Discharge Exam Constitutional + cachectic, cooperative and comfortable; no acute distress Eyes + anicteric sclerae and PERRL ENMT Ears: no hearing impairment Nose: no external nose abnormality Neck normal visual inspection and trachea midline Respiratory normal respiratory effort; no labored breathing Auscultation: lungs clear to auscultation bilaterally, + diminished lung sounds (RUL) and + crackles (RUL, anterior/posterior lung day); no wheezes Cardiovascular RRR, no murmur, no edema Chest (Breasts) Additional Comments: L port present Gastrointestinal (Abdomen) normal bowel sounds, soft, nontender, no hepatosplenomegaly Musculoskeletal no cyanosis or clubbing, extremities motor strength 5/5 Skin warm, dry Neurologic PERRL, EOMI, accommodation nl, no face palsy, no dysarthria Psychiatric Orientation: alert, oriented x 3 and cooperative Lymphatic no cervical or axillary lymphadenopathy Discharge Data Allergies Allergy/AdvReac Type Severity Reaction Status Date / Time No Known Allergies Allergy Verified 03/11/20 19:06 Consultations 03/11/20 17:07 ED Decision to Admit Stat 03/13/20 08:14 Consult Pulmonology Routine Ordered Studies 03/11 CXR 03/13/20 10:[address] chest wo con Urgent 03/14 CXR Hospital Course (1) Postobstructive pneumonia: Imaging with RUL mass obscured by progressive RUL consolidation, pneumonitis vs post obstructive pneumonia Placed on Zosyn IV and added Azithromycin for broaded coveraged given hx ANTONIETTA Pulmonary consulted given no change on imaging and patient required oxygen (hemoglobin dropped <8 and she received 1 unit PRBC on 03/13 with improvment in h/h to 9.8/31.2 and was discharged on oral iron supplementation as iron studies reveal iron low at 17) Discussed with pulmonary and no stenting/intervention at this time given progression of disease Patient able to be weaned to room air and denied shortness of breath above her baseline Discharged with Augmentin to complete 14 day course and will need repeat CT in 6-8 weeks to ensure resolution CM reached out to [facility] who will be in contact with patient about continuing palliative care as this was dropped and patient never was followed up with and was under impression she did not qualify for such. Discussed palliative vs hospice Continued mucinex at discharge to help clear secretions Patient unable to provide sputum sample (ever -- previous ANTONIETTA found on biopsy) To follow up with her oncologist and PCP 91% on RA (2) Microcytic anemia: * Patient not interested in further workup for this which seems reaso nable. Possible diet related but will get fecal occult blood to assess for GI bleed and need to at H2 javan to her usual PPI. * h/h 8.1/26.2 on 03/12 with MCV 76 * Iron studies with low iron, 17, trans % sat low 6, ferritin 498, transferrin 213 and received IV Venofer x 1 on 03/12. Will need continued supplementation * H/h dropped to 7.8/25.6 today and patient currently receiving 1 unit PRBC. Fecal occult NEGATIVE * Troponin trended up and back down likely demand ischemia. * Chest pain this morning with trop 0.023, EKG unchanged, trending back down 0.018 * H/h stable 9.8/31.2 and discharged on oral iron supplementation (3) Severe protein-calorie malnutrition: * Dietary consult. Encouraged oral intake with soft foods due to poor dentition after prior chemo. (4) Non-small cell lung cancer (NSCLC): * On no further chemo or radiation therapy per patient. Follows with Dr. De La O * Set up with [facility] -- having CM reach back out to re-establish as noted above (5) Generalized muscle weakness: * PT/OT evals with rec to return home (6) Immunodeficiency: * Continue Hizentra injections as an outpatient. (7) Ischemic cardiomyopathy: * Continued metoprolol tartrate -> consider switch to succinate per PCP outpatient (8) HTN (hypertension): * Continued usual home medication regimen with metoprolol, ISMN * BP stable 137/83 (9) Sjogren's disease: * Continued low dose prednisone and cevimeline. Symptoms at baseline. (10) DVT prophylaxis: * Lovenox 30mg SQ daily while inpatient Discharged home with Ray Total Time Total Time Spent Total Time Spent (In Minutes): 60 Discharge Plan Discharge Items Patient Disposition: Home - Self-Care Reason For Visit: POST OBSTRUCTIVE PNEUMONIA Discharge Diagnosis: Post Obstructive Pneumonia Goals: You have been hospitalized for an acute medical problem. During your stay at [facility], we have made an effort to correct the problem that brought you to the hospital while keeping you as comfortable as possible. Medications were used to bring your condition under control and your discharge instructions will include directions for any medications you should take after leaving the hospital. Please make sure you see your Primary Care Provider as part of your follow up plan. Activity: Resume your previous activity Non-emergency contact: Primary Care Provider, Oncologist and Dormitory Counselor Call non-emergency contact if: you have any medication questions, your symptoms worsen and your pain is not controlled Follow-up/Referrals: Dennis De La O DO [Physician] - 03/28/20 10:50 am (2 weeks) Evin Villalpando MD [Primary Care Provider] - 03/21/20 9:15 am Diet: Regular Diet Texture: Dental soft (bite-sized) Addtl Attending Provider Instructions: You have been hospitalized for weakness and found to have a pneumonia, partly due to mass in your right upper lobe. You have been treated with antibiotics and evaluated by pulmonary team who feel stenting/intervention not warranted given extent of cancer and moving forward with palliative care (as being arranged by CM to re-establish care at discharge and then potentially transition to hospice when appropriate). Repeat imaging does not show much change in the pneumonia at this time due to the mass but pulmonology is recommending that you complete a 14 day course of Augmentin for treatment and have a repeat cat scan of your chest as an outpatient in the next 6-8 weeks to ensure resolution. You should also continue daily mucinex to help thin secretions. You have not been febrile and your white count not elevated and you have been stable now on room air. Your blood counts were found to be low and you were transfused with a unit of blood and these values have improved. You were found to be iron deficient and should continue a daily iron supplement to help with this and improve your fatigue. Please follow up with your primary care provider in the next week to monitor your progress and follow up with Dr. De La O as well for repeat imaging. Please return to the emergency department with any symptoms that are concerning for you. It has been a pleasure being a part of the medical team providing for you while you have been in the hospital. Take care! Pending Studies at Discharge: Yes Studies:: Blood cultures --negative growth to date Stool cultures Stand-Alone Forms: My [facility] V2contact, Smoking Cessation Medications and DC Order Prescriptions: New guaifenesin [Mucinex] 600 mg Tablet Extended Release 12hr 600 mg PO Q12 Qty: 30 RF: 0 amoxicillin-pot clavulanate [Augmentin] 875-125 mg tablet 1 tab PO BID 11 Days Qty: 22 RF: 0 ferrous sulfate 325 mg (65 mg iron) tablet 325 mg PO DAILY Qty: 30 RF: 0 Continued prednisone 1 mg tablet,delayed release (DR/EC) 3 mg PO DAILY RF: 0 Hizentra 4 gram/20 mL (20 %) solution 8 gm SQ WEEKLY RF: 0 Calcium 600 + D(3) 600 mg calcium- 200 unit Capsule 1 cap PO BIDM RF: 0 pantoprazole 40 mg tablet,delayed release (DR/EC) 40 mg PO QAM RF: 0 prochlorperazine maleate [Compazine] 10 mg Tablet 10 mg PO Q8H PRN (Reason: Nausea) RF: 0 aspirin [Aspirin Low Dose] 81 mg Tablet,Delayed Release (Dr/Ec) 81 mg PO DAILY RF: 0 benzonatate 100 mg capsule 100 mg PO Q6H PRN (Reason: Cough) RF: 0 metoprolol tartrate 50 mg tablet 75 mg PO AMHS RF: 0 hzrtkdytftri-gdlldimm-cxikmo Tablet 1 tab PO DAILY RF: 0 nitroglycerin [Nitrostat] 0.4 mg tablet, sublingual 0.4 mg Sublingual DIRECTED PRN (Reason: Chest Pain) RF: 0 epinephrine [EpiPen] 0.3 mg/0.3 mL auto-injector 0.3 mg IM Q3H PRN (Reason: Infusion Reaction) RF: 0 albuterol sulfate 90 mcg/actuation HFA aerosol inhaler 2 puffs INH AMPM RF: 0 Plexus-Probio 5 1 dose PO DAILY RF: 0 potassium chloride 10 mEq Capsule, Extended Release 10 meq PO TIDM RF: 0 simvastatin 40 mg Tablet 40 mg PO HS RF: 0 isosorbide mononitrate 60 mg Tablet Extended Release 24 Hr 60 mg PO QAM RF: 0 cevimeline 30 mg Capsule 30 mg PO TIDM RF: 0 raloxifene 60 mg Tablet 60 mg PO QPM RF: 0 magnesium 250 mg Tablet 500 mg PO QAM RF: 0 ondansetron 4 mg Tablet,Disintegrating 8 mg PO Q8H PRN (Reason: Nausea) RF: 0 ranolazine [Ranexa] 500 mg Tablet Extended Release 12 Hr 500 mg PO AMHS RF: 0 Discharge Orders: Discharge Order (Routine); Ordered 03/14/20 Ordered By: Chantelle Valero/Other Patient Handouts: What Is Pneumonia?, Amoxicillin Clavulanic Acid tablets Admission Data Admit Date/Time: 03/11/20 18:12 Attending Provider: Willie Avina Admit Provider: Franc Madrid Primary Care Provider: Evin Villalpando Other Providers: Franc Madrid ; Juan Galicia Other Interventions: Discharge Summary Assessment (RN) Last Done: 03/14/20 13:00 Coding Level of Care Code D/C Day Management >30 mins Diagnoses Postobstructive pneumonia J18.9 Microcytic anemia D50.9 Severe protein-calorie malnutrition E43 Non-small cell lung cancer (NSCLC) C34.91 Laterality: right Generalized muscle weakness M62.81 Immunodeficiency D84.9 Ischemic cardiomyopathy I25.5 HTN (hypertension) I10 Sjogren's disease M35.00 DVT prophylaxis Z29.9
--- NOTE | 2020-03-14 19:34 | Pulmonology Progress Note ---
Date of Service March 14, 2020 Assessment & Plan (1) Pneumonia: CT chest 03/13/2020 personally reviewed: Right upper lobe tree-in-bud opacities along with dense consolidative process is appreciated there is also narrowing of the uptake of the right upper lobe bronchiectasis and volume loss of the right middle lobe, multiple pulmonary nodules appreciated bilaterally upper and lower lobes there is volume loss of the right upper lobe with traction of the hilum to the right upper side. Minimal mediastinal lymphadenopathy --Right upper lobe pneumonia In a patient who has history of non small cell lung cancer There is very dense consolidative process appreciated in the right upper lobe with volume loss, pneumonia seems to follow post obstructive pattern We will continue with azithromycin and Zosyn for the time being Repeat procalcitonin Sputum culture. Patient also has history of ANTONIETTA will order AFB culture as well O2 supplementation to keep O2 saturation between 88-92 Patient will need repeat CT chest in approximately 6-8 weeks to make sure there is resolution of the pneumonia. Preferably with contrast to look at the mediastinum as well. I do not think any invasive procedure including bronchoscopy or stenting the right upper lobe will be beneficial given the extent of lung cancer and poor f unctional status that patient has. --History of non-small cell lung cancer diagnosed 2017 with relapse May 2018 S/p chemotherapy Due to decline in functional status she is not getting any more therapy right now Follows up with oncology who recommends palliative care Plan: Continue with antibiotics for total of 14 days. Follow sputum culture. Repeat CT chest in 6 weeks after discharge. Continue with guaifenesin Please note the above document was generated using voice recognition software. It may contain grammatical, syntax or spelling errors.Any formal questions or concerns about the content, text or information contained within the body of this dictation should be directly addressed to the provider for clarification. (2) Bronchiectasis: (3) Lung cancer: Laterality: unspecified laterality Lung location: unspecified part of lung Qualified Code(s): C34.90 - Malignant neoplasm of unspecified part of unspecified bronchus or lung Admission and Anticipated Discharge Date Admission Date: March 11, 2020 Subjective Patient seen and examined at bedside. No acute distress, no adverse events overnight. Patient states that she is feeling better. No headache, no chest pain, shortness of breath is improved. She still has cough but she is not able to bring any phlegm up. She was saturating 90% on room air at the time of examination. Review of Systems Review of Systems: All systems reviewed & are unremarkable except as noted in Subjective Physical Exam Physical Exam: Constitutional: No acute distress HEENT: EOMI, PERRLA Respiratory system: Decreased air entry bilaterally, positive crackles bilateral lower lobes as well as right upper anterior knee, no wheeze, no rhonchi CVS: S1-S2 positive, no murmurs or gallops Abdomen: Soft, nontender, nondistended, positive bowel sounds x4 Extremities: +2 pulses bilaterally radialis/ dorsalis pedis, no cyanosis, no edema Neuro: Awake alert oriented x3 Psych: Normal mood and affect G/U: No Matias Skin: no rashes, warm and dry Lymphatic: no cervical or axillary lymphadenopathy Results & Data Results & Data ([facility]) Vital Signs (Past 12 Hours) Vital Signs Temp Pulse Pulse Pulse Resp BP Pulse Ox 03/14/20 13:00 37.3 C 76 72 77 16 137/83 91 03/14/20 08:01 37.3 C 77 16 137/83 91 03/14/20 05:39 03/14/20 05:39 PG Care Time/CCT Total # of Minutes Spent Total Time Spent with Patient: Total time spent is greater than 50% in coordination of care (as documented) at patient's floor/unit and/or counseling patient: Coding Level of Care Code 75022 Subseq Hosp Care Lvl 3 Diagnoses Pneumonia J18.9 Bronchiectasis J47.9 Lung cancer C34.90 Laterality: unspecified laterality Lung location: unspecified part of lung
== END 2020-03-14 14:44 | disposition home or self-care (01) | DRG 193 ==
LOC: ED 15:08 → SUATTDRO 18:12 → 3N 18:12

== ENCOUNTER 2020-08-13 11:21 | Inpatient (IN) ==
[2020-08-13 12:28] LABS: Hematocrit (blood only) 33.9 % (37-47); Hemoglobin 10.9 g/dL (12.0-16.0); Mean Corpuscular Hemoglobin 25.8 pg (25-34); Mean Corpuscular Hgb Conc 32.2 g/dL (32-36); Mean Corpuscular Volume 80.1 fL (80-100); Mean Platelet Volume 9.3 fL (7.4-10.4); Platelet Count 109 K/uL (130-400); RDW Coefficient of Variation 17.2 % (11.5-14.5); RDW Standard Deviation 50.4 fL (36.4-46.3); Red Blood Count 4.23 M/uL (4.2-5.4); White Blood Count 12.39 K/uL (4.8-10.8)
[2020-08-13] MEDS ORDERED: HYDROmorphone INJ 0.5 MG/0.5 ML SYR IV PRN (12:29)
[2020-08-13] MEDS ORDERED: SODIUM CHLORIDE 0.9% 500 ML IV ONE (12:29)
[2020-08-13 12:45] LABS: Alanine Aminotransferase 34 U/L (12-78); Albumin Level 2.3 gm/dl (3.4-5.0); Aspartate Aminotransferase 45 U/L (15-37); BUN Creatinine Ratio 48.6 (10-20); Blood Urea Nitrogen 37 mg/dl (7-18); Calcium 8.8 mg/dl (8.5-10.1); Carbon Dioxide 20 mmol/L (21-32); Chloride 108 mmol/L (98-107); Est GFR (African American) 86.9; Glucose 175 mg/dl (70-99); Lipase 122 U/L (73-393); Sodium 136 mmol/L (136-145)
[2020-08-13 12:48] LABS: Appearance Urine Clear (Clear); Bacteria Urine Automated 2+ (Negative); Bilirubin Urine Negative (Negative); Blood Urine 2+ (Negative); Color Urine Dark Yellow; Epithelial Cell Urine Auto >30 /lpf (0-5); Glucose Urine UA Negative (Negative); Ketones Urine Negative (Negative); Leukocyte Esterase Urine Trace (Negative); Nitrite Urine Positive (Negative); Protein Urine 2+ (Negative); RBC Urine Automated 0-4 /hpf (0-4); Specific Gravity Urine 1.024 (1.000-1.030); Urobilinogen Urine Negative (Negative)
[2020-08-13] MEDS ORDERED: OPTIRAY 350 500ml IV ONE (12:55)
[2020-08-13 12:56] LABS: Albumin Globulin Ratio 0.5 (0.9-2); Alkaline Phosphatase 123 U/L (45-117); Bilirubin,Total 0.7 mg/dl (0.2-1); Creatine Kinase 29 U/L (26-192); Creatine Kinase MB < 1.0 ng/ml (0.5-3.6); Globulin 4.5 gm/dl (2.5-4.0); Total Protein 6.8 gm/dl (6.4-8.2); Troponin I 0.025 ng/ml (0-0.045)
--- NOTE | 2020-08-13 12:57 | XRay Report ---
XR chest 1V portable HISTORY: weakness COMPARISON: Chest 03/14/2020. FINDINGS: No pneumothorax. No pleural effusions. Left subclavian Port-A-Cath terminates in the SVC. T his remains unchanged. Right upper lobe masslike opacity remains unchanged. There is mild diffuse int erstitial thickening and a right basilar airspace opacity which have improved. The heart remains mild ly enlarged. There are poststernotomy changes. Prior cholecystectomy. IMPRESSION: 1. No change in the right upper lobe pulmonary mass. 2. Improved aeration within the right lung base. No new focal lung consolidations to suggest pneumoni a. 3. Additional scattered pulmonary nodules consistent with metastatic disease are better appreciated o n the recent chest CT. ACT 112: Negative or not required by law. Electronically signed by: Bucky Mclain M.D. 08/13/2020 12:56 PM
[2020-08-13] MEDS ORDERED: cefTRIAXone SODIUM 2,000 MG/70 ML BAG IV STA (13:01)
[2020-08-13 13:09] LABS: Eosinophils # (auto) 0.01 K/uL (0-0.5); Eosinophils % (auto) 0.1 %; Immature Granulocytes # (auto) 0.03 K/uL (0.00-0.02); Immature Granulocytes % (auto) 0.2 %; Lymphocytes # (auto) 1.03 K/uL (1.2-3.4); Lymphocytes % (auto) 8.3 %; Monocytes # (auto) 1.17 K/uL (0.11-0.59); Monocytes % (auto) 9.4 %; Neutrophils # (auto) 10.15 K/uL (1.4-6.5)
--- NOTE | 2020-08-13 13:12 | CT Scan Report ---
HEAD CT NONCONTRAST CT DOSE: HISTORY: Altered mental status. Headache. Confusion. TECHNIQUE: Multiaxial CT images of the head were performed without the use of intravenous contrast. A utomated exposure control was utilized for this study. A dose lowering technique was utilized adheri ng to the principles of ALARA. Comparison: Head CT 09/23/2018. Findings: Mild motion artifact. The paranasal sinuses and mastoid air cells are clear. The calvarium and skull base are intact. There is no mass, hematoma, midline shift, acute infarct. White matter hyp odensity is nonspecific but suggestive of microvascular ischemic change. The ventricles and sulci dem onstrate mild age-related involutional changes. Asymmetric anterior subluxation of the right mandibul ar condyle in comparison to the left. Impression: 1. Motion artifact. No definite acute intracranial abnormality. 2. Asymmetric anterior subluxation of the right mandibular condyle in comparison to the left. This is likely positional. However, clinical correlation recommended to exclude the less likely possibility of a traumatic process. ACT 112: Negative or not required by law. Electronically signed by: Bucky Mclain M.D. 08/13/2020 1:10 PM
--- NOTE | 2020-08-13 13:48 | CT Scan Report ---
CT ANGIOGRAPHY OF THE CHEST, PULMONARY EMBOLUS PROTOCOL CLINICAL HISTORY: Weakness. Lung cancer. COMPARISON STUDY: Chest CT May 09, 2020. Chest radiograph performed earlier today. PET/CT Septem 2018. TECHNIQUE: Following IV administration of Optiray, helical axial images of the chest were obtained ut ilizing the pulmonary embolus protocol. Maximal intensity projections and sagittal and coronal refor mats were viewed on an independent 3D workstation. IV contrast was administered without complication . Automated exposure control was utilized for the study. A dose lowering technique was utilized adh ering to the principles of ALARA. CT DOSE: 1288.44 mGy.cm FINDINGS: Note is made of median sternotomy wires and a left subclavian Nivtuy-o-Rada. No central or lobar pulmonary emboli are identified. The remainder of the pulmonary arteries are suboptimally asse ssed due to respiratory motion. The heart is moderately enlarged. There is moderate coronary artery c alcific indication. No pericardial effusion is noted. There is no pneumothorax or pleural effusion. T he previously described right upper lobe mass has significantly increased in size since CT of May 09, 2020. This mass measures approximately 6.6 x 6.1 cm. It previously measured 5.3 x 4.2 cm. A port ion of this could reflect postobstructive pneumonia. There is occlusion of right upper lobe bronchi. Suspected mediastinal invasion is noted. Prominent mediastinal and right hilar lymph nodes are again noted. These were shown on prior exam. Numerous pulmonary nodules are noted. These have increased in size since prior exam. Index right upper lobe nodule on image 153 measures 2 cm. It previously measur ed 1.6 cm. Superimposed inflammatory nodules may also be present. Lungs are suboptimally assessed giv en respiratory motion. There are no suspicious lesions within the bony thorax. Right hepatic lobe les ions are unchanged and are shown to represent hemangiomas on earlier MRI. Diffuse nodular wall thicke antony and bronchiectasis within the right middle lobe is again noted. IMPRESSION: 1. No central or lobar pulmonary emboli. Remainder of pulmonary arteries suboptimally assessed due to respiratory motion. 2. Significant increase in size of the right upper lobe cancer since CT of May 09, 2020. A portio n of this could reflect postobstructive pneumonia however the findings suggest significant disease pr ogression with increase in numerous pulmonary metastases and suspected mediastinal invasion. 3. Suspected superimposed inflammatory nodules, as shown on prior exam. ACT 112: Negative or not required by law. Electronically signed by: Remington Melvin M.D. 08/13/2020 1:47 PM
--- NOTE | 2020-08-13 13:50 | History & Physical Report ---
Date of Service August 13, 2020 Assessment & Plan (1) Acute UTI: Her weakness could very well be secondary to her cancer. However, patient is not interested in palliative care. will obtain PT/ OT eval will treat for possible UTI. Patient would like to be discharged tomorrow Explained to maris that this may take a few days. (2) Sjogren's disease: continue her home meds. (3) Underweight: may benfit from a nutrition consult. Her BMI is 17. Though she reports not losing much weight, she appears very brittle. (4) COPD (chronic obstructive pulmonary disease): breathing well at the moment. no issues at this time. (5) Non-small cell lung cancer (NSCLC): No longer a candidate for chemotherapy. She appears likely a candidate at least for palliative care. She may even be a hospice candidate, she wants to hold off for now. (6) Severe protein-calorie malnutrition: as stated above, she has a poor appetite Glaucoma: S/P surgery on prednisolone eye drops. ofloxacin. (7) Immune deficiency disorder: resume home meds DVT: heparin History of Present Illness Chief Complaint: general malaise Primary Care Provider: Evin Villalpando MD Naila Vega is a 75-year-old female with metastatic non-small cell lung cancer, Sjogren's, history of large B cell non-Hodgkin's lymphoma, history of ANTONIET[place], and bronchiectasis who presents to the ER with generalized weakness for past 5 days. She is currently not undergoing any chemotherapy due to decreased performance status. She denies any change in her chronic cough. No loss of taste or smell, diarrhea, abdominal pain, fever, chills, shortness of breath or known COVID-19 exposure. She denies any chest pain, orthopnea, PND, claudication, presyncope or syncope. In the ER, she was found to have a possible UTI. Antibiotics were given and admission was called. The patient reports she recently have glaucoma surgery last week and she has not recovered. Her states she has had a poor appetite, but she has not lost any more weight in the past few months. She understands her poor prognosis but states she does not feel it is time for a palliative care consult. She is not very active at home, and only ambulats from her room to the living room. Her home is two stories but they have a chair lift installed. She has been vaccinated with the COVID vaccine (both doses) over 4 weeks ago.. Allergies Allergy/AdvReac Type Severity Reaction Status Date / Time No Known Allergies Allergy Verified 08/13/20 13:05 Home Medications Medication Instructions Recorded Confirmed Type cevimeline 30 mg PO TIDM 06/21/18 08/13/20 History isosorbide mononitrate 60 mg PO QAM 06/21/18 08/13/20 History magnesium 500 mg PO QAM 06/21/18 08/13/20 History ondansetron 8 mg PO Q8H PRN 06/21/18 08/13/20 History potassium chloride 10 meq PO TIDM 06/21/18 08/13/20 History raloxifene 60 mg PO QPM 06/21/18 08/13/20 History ranolazine [Ranexa] 500 mg PO AMHS 06/21/18 08/13/20 History simvastatin 40 mg PO HS 06/21/18 08/13/20 History Calcium 600 + D(3) 1 cap PO BIDM 09/06/18 08/13/20 History pantoprazole 40 mg PO QAM 09/23/18 08/13/20 History immun glob G 4 gram/20 mL(20 8 gm SQ WEEKLY ml 02/16/19 08/13/20 History %)-prol-IgA 0-50 mcg/mL subcutaneous soln prednisone 1 mg tablet,delayed 3 mg PO QAM tab 02/16/19 08/13/20 History release prochlorperazine maleate 10 mg PO Q8H PRN 04/05/19 08/13/20 History [Compazine] Plexus-Probio 5 1 dose PO DAILY 03/11/20 08/13/20 History albuterol sulfate 2 puffs INH AMPM 03/11/20 08/13/20 History aspirin [Aspirin Low Dose] 81 mg PO QAM 03/11/20 08/13/20 History benzonatate 100 mg PO Q6H PRN 03/11/20 08/13/20 History epinephrine [EpiPen] 0.3 mg IM Q3H PRN 03/11/20 08/13/20 History metoprolol tartrate 75 mg PO AMHS 03/11/20 08/13/20 History vuorergotsci-hbolvbkv-gkjvhr 1 tab PO DAILY 03/11/20 08/13/20 History nitroglycerin [Nitrostat] 0.4 mg SUBLINGUAL DIRECTED PRN 03/11/20 08/13/20 History guaifenesin [Mucinex] 600 mg PO Q12 PRN 08/13/20 08/13/20 History ofloxacin 1 drp OPL QID 08/13/20 08/13/20 History prednisolone acetate 1 drp OPL QID 08/13/20 08/13/20 History Past Med/Surg History Medical History CAD (coronary artery disease), [place] coronary artery With stable angina COPD exacerbation GERD (gastroesophageal reflux disease) DIET CONTROLLED History of lung cancer dx 2018 chemo History of lymphoma dx 2015, in remission Hyperlipidemia Hypertension Hypogammaglobulinemia Immunodeficiency Immunosuppression Mitral regurgitation mild to moderate Osteoporosis Sjogren's disease Steroid dependence sjogrens disease TIA (transient ischemic attack) 12/14/2018, TIA vs possible seizure. Surgical History History of arthroscopy RIGHT KNEE MENISCUS History of cataract surgery RT History of cholecystectomy History of colonoscopy History of coronary artery bypass graft 4 VESSEL, [facility] 6 YEARS AGO History of hysterectomy Family History Unknown Heart disease Other Family history non-contributory Social History Smoking Status: Never smoker Second Hand Exposure: No; Do You Dip or Chew Tobacco: No; Tobacco Cessation Education Requested by Patient: No Hx Alcohol Use: No Hx Substance Use: No Preferred Language: Italian Communication Ability: Effective Wheel Blocker Required: No Beliefs That Will Affect Care: None marital status: Current Living Situation: Spouse current occupational status: retired 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 Other Information That Helps Us Care for You: No Feels Safe at Home: Yes Assistive Devices: None Review of Systems Constitutional: + fatigue, + malaise and + weakness; no chills and no body aches Eyes: no blind spots and no discharge Ear, Nose, Mouth, Throat: no ear pain, no tinnitus and no dizziness Respiratory: no cough and no dyspnea Cardiovascular: no chest pain and no dyspnea on exertion Gastrointestinal: no abdominal pain Genitourinary: no dysuria Musculoskeletal: no back pain Integumentary: no rash and no erythema Neurologic: + gait abnormality and + generalized weakness Psychiatric: no hopelessness Endocrine: + fatigue Hematologic / Lymphatic: no night sweats Allergy / Immunological: no seasonal rhinorrhea Physical Exam Physical Exam: Constitutional: well developed and + frail appearing; + not well nourished and no acute distress Eyes: + anicteric sclerae; normal pupil size ENMT: Mouth: oral mucous membranes not dry Respiratory: Auscultation: + crackles (Right crackles) Cardiovascular: RRR, no murmur, no edema Gastrointestinal (Abdomen): normal bowel sounds, soft, nontender, no hepatosplenomegaly Musculoskeletal: no cyanosis or clubbing, extremities motor strength 5/5 Neurologic: moves all extremities and awake; not confused Psychiatric: A+Ox3, euthymic affect Results & Data Results & Data ([facility]) Vital Signs (Past 12 Hours) Vital Signs Temp Pulse Resp BP Pulse Ox 08/13/20 12:31 80 26 H 171/86 H 93 08/13/20 12:26 83 18 91 08/13/20 11:22 36.7 C 83 18 197/89 H 91 PG Care Time/CCT Total # of Minutes Spent Total Time Spent with Patient: Total time spent is greater than 50% in coordination of care (as documented) at patient's floor/unit and/or counseling patient: Coding Level of Care Code 46560 OBS Care - Level 3 Diagnoses Acute UTI N39.0 Sjogren's disease M35.00 Underweight R63.6 COPD (chronic obstructive pulmonary disease) J44.0 COPD type: COPD with acute lower respiratory infection Non-small cell lung cancer (NSCLC) C34.91 Laterality: right Severe protein-calorie malnutrition E43 Immune deficiency disorder D84.9 Time Spent (min) 70 (1) COPD (chronic obstructive pulmonary disease) COPD type: COPD with acute lower respiratory infection Qualified Code(s): J44.0 - Chronic obstructive pulmonary disease with acute lower respiratory infection (2) Non-small cell lung cancer (NSCLC) Laterality: right Qualified Code(s): C34.91 - Malignant neoplasm of unspecified part of right bronchus or lung
[2020-08-13] MEDS ORDERED: BENZONATATE 100 MG CAPSULE PO PRN (14:10)
[2020-08-13] MEDS ORDERED: guaiFENesin 600 MG TABCR PO PRN (14:16)
[2020-08-13] MEDS ORDERED: NITROGLYCERIN SL 0.4 MG/TAB TAB SL PRN (14:16)
[2020-08-13 14:43] LABS: Influenza A virus by PCR Negative (Neg); Influenza B virus by PCR Negative (Neg); RSV by PCR Negative (Neg); SARS CoV2 RNA(COVID-19) InHosp NEGATIVE (Negative)
[2020-08-13] MEDS: ACETAMINOPHEN 325 MG TAB PO PRN (16:05)
[2020-08-13] MEDS: CALCIUM 600MG + VIT D 400 IU TAB PO SCH (16:56)
[2020-08-13] MEDS: POTASSIUM CHLORIDE 10 MEQ TABCR PO SCH (16:56)
[2020-08-13] MEDS: OFLOXACIN 0.3% OP SOLN 5 ML BTL OPL SCH ×2 (16:57→20:49)
[2020-08-13] MEDS: prednisoLONE acetate 1% OP SUSP 5 ML BTL OPL SCH ×2 (16:57→20:50)
[2020-08-13] MEDS: ONDANSETRON 4 MG OD TAB PO PRN (17:38)
--- NOTE | 2020-08-13 17:40 | Electrocardiogram Report ---
Test Reason : Blood Pressure : / mmHG Vent. Rate : 080 BPM Atrial Rate : 080 BPM P-R Int : 148 ms QRS Dur : 110 ms QT Int : 428 ms P-R-T Axes : 030 041 039 degrees QTc Int : 493 ms Normal sinus rhythm Incomplete right bundle branch block T wave abnormality, consider anterior ischemia Abnormal ECG When compared with ECG of 13-MAR-2020 10:11, QT has shortened Confirmed by Ceferino Dee ([id number]) on 08/13/2020 5:39:54 PM Referred By: Evin Villalpando Confirmed By:Brad Dee
[2020-08-13] MEDS: CEVIMELINE HCL PO SCH (18:00)
--- NOTE | 2020-08-13 18:54 | Emergency Department Note ---
Impression & Plan Altered mental status, Weakness, Acute UTI ED Provider Note NAME: GLORIA KUMARI AGE: 75 SEX: F : 1945 ARRIVES VIA: Walk-In INFORMANT: Patient, ED PROVIDER(S): Srinivas Tyson MD CHIEF COMPLAINT: weakness, confusion HPI: This 75-year-old female brought in by her over concerns of the pat ient has become increasingly weak and confused over the past 72 hours. The reports anytime the patient does any physical activity she becomes weaker. He reports rest makes the weakness better. The patient herself denies any pain. In addition also reports that the patient seems increasingly confused. Patient does have a history of coronary bypass. has not given her anything for her weakness or her confusion. ROS: See above HPI for pertinent positives & negatives. A total of 10 systems reviewed and were otherwise negative. PAST MEDICAL HISTORY: See Below PAST SURGICAL HISTORY: See Below FAMILY HISTORY: See Below SOCIAL HISTORY: See Below HOME MEDICATIONS: See Below ALLERGIES: See Below VITALS: See Below PHYSICAL EXAMINATION: VITAL SIGNS - Vital signs and nursing notes were reviewed. GENERAL - 75-year-old female appearing stated age who is in no acute distress, cachectic in appearance SKIN - Without rashes. HEAD - NC/AT. EYES - PERRL with EOMI bilaterally. Sclera anicteric. Palpebral conjunctiva pink and moist with no injection noted. EARS - No deformities of external structures noted on gross examination bilaterally. NOSE - Midline and without cyanosis. No epistaxis or purulent drainage noted. Septum midline without deviation or septal hematoma noted. MOUTH/OROPHARYNX - Without perioral cyanosis. Buccal mucosa pink and moist and without leukoplakia. Tongue midline with equal elevation of palate bilaterally. No tonsillar hypertrophy, erythema, or exudates noted. NECK - Neck with FROM. Supple to palpation. No nuchal rigidity. LUNGS - Chest wall symmetric without accessory muscle use, intercostals retractions, or central cyanosis. Normal vesicular breath sounds CTA B/L. No wheezes, rales, or rhonchi appreciated. CARDIAC - RRR with S1/S2. No murmur, rubs, or gallops appreciated. ABDOMEN - Abdominal contour without pulsations or visible masses. BS normoactive all four quadrants. No tenderness, palpable masses, hepatosplenomegaly, or ascites noted. EXTREMITIES - No clubbing or peripheral cyanosis. No pretibial edema present. +3/5 radial, posterior tibial, and dorsalis pedis pulses palpated throughout. +5/5 strength noted in UE/LE bilaterally. NEUROLOGIC - Cranial nerves II through XII grossly intact. Sensory intact to light touch throughout. Patellar reflexes +2/4. MEDICAL DECISION MAKING: Patient was seen and evaluated as above in room B10. Review was performed of nursing notes and vital signs. I did review pertinent previous visits and patient history. After obtaining a thorough history and physical examination the above work up was performed. This 75-year-old female who presents emergency department complaining of generalized weakness as well as confusion. Patient does have an elevation in her white blood cell count and does appear to have a urinary tract infection. She was given a normal saline bolus here and started on IV Rocephin. Due to the patient's increasing confusion and weakness I did discuss the case with the hospitalist service who did agree to admit the patient. Patient's Covid test is negative. Patient is in agreement with the treatment plan. An order was placed for continuous cardiac monitoring. The monitor shows a rate of 82 with Normal Sinus rhythm. The patient was evaluated during a period of high volume and high acuity during the global COVID-19 pandemic, and that diagnosis was suspected/considered upon their initial presentation. Their evaluation, treatment and testing was consistent with current guidelines for patients who present with complaints or symptoms that may be related to COVID-19. Patient was seen while provider was wearing PPE. Triage Nursing notes reviewed. Prior medical records reviewed Vital Signs: reviewed and remarkable for no significant abnormalities Differential diagnosis: Infection, dehydration, metabolic abnormality, hypo/hyperglycemia, electrolyte disturbance, anemia, hypoxia, cardiac sources, intracerebral event, toxicologic, neurologic, as well as other pathologies. ER treatment provided: See below Diagnostics interpreted by me: ECG: EKG shows normal sinus rhythm incomplete right bundle branch block T wave inversions in the anterior leads QTC is 493 ventricular rate is 80. When compared to EKG of 03/13/2020 the QT has shortened. Laboratory studies: As stated above and show below. Imaging studies: See below Consultation(s): Internal Medicine Past Med/Surg History Medical History CAD (coronary artery disease), [place] coronary artery With stable angina COPD exacerbation GERD (gastroesophageal reflux disease) DIET CONTROLLED History of lung cancer dx 2018 chemo History of lymphoma dx 2016, in remission Hyperlipidemia Hypertension Hypogammaglobulinemia Immunodeficiency Immunosuppression Mitral regurgitation mild to moderate Osteoporosis Sjogren's disease Steroid dependence sjogrens disease TIA (transient ischemic attack) 12/14/2018, TIA vs possible seizure. Surgical History History of arthroscopy RIGHT KNEE MENISCUS History of cataract surgery RT History of cholecystectomy History of colonoscopy History of coronary artery bypass graft 4 VESSEL, [facility] 6 YEARS AGO History of hysterectomy Family History Unknown Heart disease Other Family history non-contributory Social History Smoking Status: Never smoker Second Hand Exposure: No; Do You Dip or Chew Tobacco: No; Tobacco Cessation Education Requested by Patient: No Hx Alcohol Use: No Hx Substance Use: No Preferred Language: Jordanian Communication Ability: Effective Loom Operator Required: No Beliefs That Will Affect Care: None marital status: Current Living Situation: Spouse current occupational status: retired 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 Other Information That Helps Us Care for You: No Feels Safe at Home: Yes Assistive Devices: None Allergies Allergies Allergy/AdvReac Type Severity Reaction Status Date / Time No Known Allergies Allergy Verified 08/13/20 13:05 Home Meds Home Medications Medication Instructions Recorded Confirmed cevimeline 30 mg PO TIDM 06/21/18 08/13/20 isosorbide mononitrate 60 mg PO QAM 06/21/18 08/13/20 magnesium 500 mg PO QAM 06/21/18 08/13/20 ondansetron 8 mg PO Q8H PRN 06/21/18 08/13/20 potassium chloride 10 meq PO TIDM 06/21/18 08/13/20 raloxifene 60 mg PO QPM 06/21/18 08/13/20 ranolazine [Ranexa] 500 mg PO AMHS 06/21/18 08/13/20 simvastatin 40 mg PO HS 06/21/18 08/13/20 Calcium 600 + D(3) 1 cap PO BIDM 09/06/18 08/13/20 pantoprazole 40 mg PO QAM 09/23/18 08/13/20 immun glob G 4 gram/20 mL(20 8 gm SQ WEEKLY ml 02/16/19 08/13/20 %)-prol-IgA 0-50 mcg/mL subcutaneous soln prednisone 1 mg tablet,delayed 3 mg PO QAM tab 02/16/19 08/13/20 release prochlorperazine maleate 10 mg PO Q8H PRN 04/05/19 08/13/20 [Compazine] Plexus-Probio 5 1 dose PO DAILY 03/11/20 08/13/20 albuterol sulfate 2 puffs INH AMPM 03/11/20 08/13/20 aspirin [Aspirin Low Dose] 81 mg PO QAM 03/11/20 08/13/20 benzonatate 100 mg PO Q6H PRN 03/11/20 08/13/20 epinephrine [EpiPen] 0.3 mg IM Q3H PRN 03/11/20 08/13/20 metoprolol tartrate 75 mg PO AMHS 03/11/20 08/13/20 mlitytkphwtu-harnccel-wtxbuc 1 tab PO DAILY 03/11/20 08/13/20 nitroglycerin [Nitrostat] 0.4 mg SUBLINGUAL DIRECTED PRN 03/11/20 08/13/20 guaifenesin [Mucinex] 600 mg PO Q12 PRN 08/13/20 08/13/20 ofloxacin 1 drp OPL QID 08/13/20 08/13/20 prednisolone acetate 1 drp OPL QID 08/13/20 08/13/20 Results & Data (ED) Vital Signs Vital Signs - 24 hr 08/13/20 11:22 08/13/20 12:26 08/13/20 12:31 Temperature 36.7 C Temperature Source Temporal Artery Scan Pulse Rate 83 83 80 Pulse Rate from SpO2 Sensor 80 Pulse Rhythm Regular Respiratory Rate 18 18 26 H Respiratory Effort / Characteristics Non-Labored Spontaneous Respiratory Depth Normal Respiratory Pattern Regular Blood Pressure 197/89 H 171/86 H Blood Pressure Mean 125 114 Blood Pressure Position Sitting Pulse Oximetry 91 91 93 Oxygen Delivery Method Room Air Room Air Sepsis Recent Fever Within 48 Hours No Sepsis New/Unexplained Change in Mental Status N/A Sepsis Action Taken by Nursing No Action Required 08/13/20 14:00 Temperature Temperature Source Pulse Rate 83 Pulse Rate from SpO2 Sensor 83 Pulse Rhythm Respiratory Rate 29 H Respiratory Effort / Characteristics Respiratory Depth Respiratory Pattern Blood Pressure 173/105 H Blood Pressure Mean 127 Blood Pressure Position Pulse Oximetry 93 Oxygen Delivery Method Sepsis Recent Fever Within 48 Hours Sepsis New/Unexplained Change in Mental Status Sepsis Action Taken by Alf Medications Current Medication List: was personally reviewed by me Laboratory Data Attestation: I reviewed the patient's lab results. Result diagrams: 08/13/20 12:15 08/13/20 12:15 Lab Results 08/13/20 08/13/20 08/13/20 Range/Units 12:15 12:15 12:20 WBC 12.39 H (4.8-10.8) K/uL RBC 4.23 (4.2-5.4) M/uL Hgb 10.9 L (12.0-16.0) g/dL Hct 33.9 L (37-47) % MCV 80.1 (80-100) fL MCH 25.8 (25-34) pg MCHC 32.2 (32-36) g/dL RDW Std Deviation 50.4 H (36.4-46.3) fL RDW Coeff of Marlene 17.2 H (11.5-14.5) % Plt Count 109 L (130-400) K/uL MPV 9.3 (7.4-10.4) fL Immature Gran % (Auto) 0.2 % Neut % (Auto) 82.0 % Lymph % (Auto) 8.3 % Stephens % (Auto) 9.4 % Eos % (Auto) 0.1 % Baso % (Auto) 0.0 % Neut # (Auto) 10.15 H (1.4-6.5) K/uL Lymph # (Auto) 1.03 L (1.2-3.4) K/uL Stephens # (Auto) 1.17 H (0.11-0.59) K/uL Eos # (Auto) 0.01 (0-0.5) K/uL Baso # (Auto) 0.00 (0-0.2) K/uL Immature Gran # (Auto) 0.03 H (0.00-0.02) K/uL Sodium 136 (136-145) mmol/L Potassium 4.0 (3.5-5.1) mmol/L Chloride 108 H (98-107) mmol/L Carbon Dioxide 20 L (21-32) mmol/L Anion Gap 8.0 (3-11) BUN 37 H (7-18) mg/dl Creatinine 0.77 (0.6-1.2) mg/dl Est Cr Clr Drug Dosing Not Reportable Est GFR ( Amer) 86.9 Est GFR (Non-Af Amer) 75.0 BUN/Creatinine Ratio 48.6 H (10-20) Glucose 175 H (70-99) mg/dl Calcium 8.8 (8.5-10.1) mg/dl Total Bilirubin 0.7 (0.2-1) mg/dl AST 45 H (15-37) U/L ALT 34 (12-78) U/L Alkaline Phosphatase 123 H (45-117) U/L Total Creatine Kinase 29 (26-192) U/L CK-MB (CK-2) < 1.0 (0.5-3.6) ng/ml CK/CKMB % Calc TNP Troponin I 0.025 (0-0.045) ng/ml Total Protein 6.8 (6.4-8.2) gm/dl Albumin 2.3 L (3.4-5.0) gm/dl Globulin 4.5 H (2.5-4.0) gm/dl Albumin/Globulin Ratio 0.5 L (0.9-2) Lipase 122 (73-393) U/L TSH 2.430 (0.300-4.500) uIu/ml Urine Color Dark Yellow Urine Appearance Clear (Clear) Urine pH 5.0 (4.5-7.5) Ur Specific [place] 1.024 (1.000-1.030) Urine Protein 2+ H (Negative) Urine Glucose (UA) Negative (Negative) Urine Ketones Negative (Negative) Urine Blood 2+ H (Negative) Urine Nitrite Positive A (Negative) Urine Bilirubin Negative (Negative) Urine Urobilinogen Negative (Negative) Ur Leukocyte Esterase Trace H (Negative) Urine WBC (Auto) 5-10 H (0-5) /hpf Urine RBC (Auto) 0-4 (0-4) /hpf U Hyaline Cast (Auto) 1-5 (0-5) /lpf U Epithel Cells (Auto) >30 H (0-5) /lpf Urine Bacteria (Auto) 2+ H (Negative) COVID-19 Eval Order SARS-CoV-2 (PCR) (Negative) Influenza Type A (PCR) (Neg) Influenza Type B (PCR) (Neg) RSV (RT-PCR) (Neg) 08/13/20 08/13/20 Range/Units 13:50 13:50 WBC (4.8-10.8) K/uL RBC (4.2-5.4) M/uL Hgb (12.0-16.0) g/dL Hct (37-47) % MCV (80-100) fL MCH (25-34) pg MCHC (32-36) g/dL RDW Std Deviation (36.4-46.3) fL RDW Coeff of Marlene (11.5-14.5) % Plt Count (130-400) K/uL MPV (7.4-10.4) fL Immature Gran % (Auto) % Neut % (Auto) % Lymph % (Auto) % Stephens % (Auto) % Eos % (Auto) % Baso % (Auto) % Neut # (Auto) (1.4-6.5) K/uL Lymph # (Auto) (1.2-3.4) K/uL Stephens # (Auto) (0.11-0.59) K/uL Eos # (Auto) (0-0.5) K/uL Baso # (Auto) (0-0.2) K/uL Immature Gran # (Auto) (0.00-0.02) K/uL Sodium (136-145) mmol/L Potassium (3.5-5.1) mmol/L Chloride (98-107) mmol/L Carbon Dioxide (21-32) mmol/L Anion Gap (3-11) BUN (7-18) mg/dl Creatinine (0.6-1.2) mg/dl Est Cr Clr Drug Dosing Est GFR ( Amer) Est GFR (Non-Af Amer) BUN/Creatinine Ratio (10-20) Glucose (70-99) mg/dl Calcium (8.5-10.1) mg/dl Total Bilirubin (0.2-1) mg/dl AST (15-37) U/L ALT (12-78) U/L Alkaline Phosphatase (45-117) U/L Total Creatine Kinase (26-192) U/L CK-MB (CK-2) (0.5-3.6) ng/ml CK/CKMB % Calc Troponin I (0-0.045) ng/ml Total Protein (6.4-8.2) gm/dl Albumin (3.4-5.0) gm/dl Globulin (2.5-4.0) gm/dl Albumin/Globulin Ratio (0.9-2) Lipase (73-393) U/L TSH (0.300-4.500) uIu/ml Urine Color Urine Appearance (Clear) Urine pH (4.5-7.5) Ur Specific [place] (1.000-1.030) Urine Protein (Negative) Urine Glucose (UA) (Negative) Urine Ketones (Negative) Urine Blood (Negative) Urine Nitrite (Negative) Urine Bilirubin (Negative) Urine Urobilinogen (Negative) Ur Leukocyte Esterase (Negative) Urine WBC (Auto) (0-5) /hpf Urine RBC (Auto) (0-4) /hpf U Hyaline Cast (Auto) (0-5) /lpf U Epithel Cells (Auto) (0-5) /lpf Urine Bacteria (Auto) (Negative) COVID-19 Eval Order [facility]Rsv at [facility] SARS-CoV-2 (PCR) NEGATIVE (Negative) Influenza Type A (PCR) Negative (Neg) Influenza Type B (PCR) Negative (Neg) RSV (RT-PCR) Negative (Neg) Administered Medications Acetaminophen (Acetaminophen 325 Mg Tab) 650 mg PO Q4H PRN PRN Reason: pain/fever Stop: 09/12/20 14:34 Last Admin: 08/13/20 16:05 Dose: 650 mg Documented by: [id number] Cevimeline HCl (Cevimeline Hcl) 1 ea PO TIDM [facility] Stop: 09/12/20 16:59 Last Admin: 08/13/20 18:00 Dose: 1 ea Documented by: [id number] Multivitamins/Minerals (Calcium 600mg + Vit D 400 Iu Tab) 1 tab PO BIDM [facility] Stop: 09/12/20 16:59 Last Admin: 08/13/20 16:56 Dose: 1 tab Documented by: [id number] Ofloxacin (Ofloxacin 0.3% Op Soln 5 Ml Btl) 1 drops OPL QID [facility] Stop: 08/23/20 16:59 Last Admin: 08/13/20 16:57 Dose: 1 drops Documented by: [id number] Ondansetron HCl (Ondansetron 4 Mg Od Tab) 4 mg PO Q8H PRN PRN Reason: Nausea Stop: 09/12/20 15:35 Last Admin: 08/13/20 17:38 Dose: 4 mg Documented by: [id number] Potassium Chloride (Potassium Chloride 10 Meq Tabcr) 10 meq PO TIDM [facility] Stop: 09/12/20 16:59 Last Admin: 08/13/20 16:56 Dose: 10 meq Documented by: [id number] Prednisolone Acetate (Prednisolone Acetate 1% Op Susp 5 Ml Btl) 1 drops OPL QID [facility] Stop: 09/12/20 16:59 Last Admin: 08/13/20 16:57 Dose: 1 drops Documented by: [id number] Discontinued Medications Sodium Chloride (Nss) 500 mls @ 999 mls/hr IV .Q31M ONE Stop: 08/13/20 12:59 Last Infusion: 08/13/20 14:17 Dose: 0 mls/hr Documented by: [id number] Admin: 08/13/20 13:46 Dose: 999 mls/hr Documented by: [id number] Ceftriaxone Sodium (Rocephin) 2,000 mg in 70 mls @ 140 mls/hr IV NOW STA Stop: 08/13/20 13:30 Last Infusion: 08/13/20 14:17 Dose: 0 mls/hr Documented by: [id number] Admin: 08/13/20 13:46 Dose: 140 mls/hr Documented by: [id number] Ioversol (Optiray 350 500ml) 120 ml IV ONCE ONE Stop: 08/13/20 12:56 Last Admin: 08/13/20 13:01 Dose: 120 ml Documented by: [id number] Miscellaneous (Cevimeline 30 Mg Capsule ~ Order Awaiting Action) 1 ea N/A QS S CH Stop: 09/12/20 15:59 Last Admin: 08/13/20 16:58 Dose: Not Given Documented by: [id number] Imaging Data Attestation: I personally reviewed and interpreted this imaging study as follows: Radiologist's Impression: Chest CTA 08/13/20 12:21 CT ANGIOGRAPHY OF THE CHEST, PULMONARY EMBOLUS PROTOCOL CLINICAL HISTORY: Weakness. Lung cancer. COMPARISON STUDY: Chest CT May 09, 2020. Chest radiograph performed earlier today. PET/CT January 10, 2019. TECHNIQUE: Following IV administration of Optiray, helical axial images of the chest were obtained utilizing the pulmonary embolus protocol. Maximal intensity projections and sagittal and coronal reformats were viewed on an independent 3D workstation. IV contrast was administered without complication. Automated exposure control was utilized for the study. A dose lowering technique was utilized adhering to the principles of ALARA. CT DOSE: 1288.44 mGy.cm FINDINGS: Note is made of median sternotomy wires and a left subclavian [id number]-c-Mugl. No central or lobar pulmonary emboli are identified. The remainder of the pulmonary arteries are suboptimally assessed due to respiratory motion. The heart is moderately enlarged. There is moderate coronary artery calcific indication. No pericardial effusion is noted. There is no pneumothorax or pleural effusion. The previously described right upper lobe mass has significantly increased in size since CT of May 09, 2020. This mass measures approximately 6.6 x 6.1 cm. It previously measured 5.3 x 4.2 cm. A portion of this could reflect postobstructive pneumonia. There is occlusion of right upper lobe bronchi. Suspected mediastinal invasion is noted. Prominent mediastinal and right hilar lymph nodes are again noted. These were shown on prior exam. Numerous pulmonary nodules are noted. These have increased in size since prior exam. Index right upper lobe nodule on image 153 measures 2 cm. It previously measured 1.6 cm. Superimposed inflammatory nodules may also be present. Lungs are suboptimally assessed given respiratory motion. There are no suspicious lesions within the bony thorax. Right hepatic lobe lesions are unchanged and are shown to represent hemangiomas on earlier MRI. Diffuse nodular wall thickening and bronchiectasis within the right middle lobe is again noted. IMPRESSION: 1. No central or lobar pulmonary emboli. Remainder of pulmonary arteries suboptimally assessed due to respiratory motion. 2. Significant increase in size of the right upper lobe cancer since CT of May 09, 2020. A portion of this could reflect postobstructive pneumonia however the findings suggest significant disease progression with increase in numerous pulmonary metastases and suspected mediastinal invasion. 3. Suspected superimposed inflammatory nodules, as shown on prior exam. ACT 112: Negative or not required by law. Electronically signed by: Remington Melvin M.D. 08/13/2020 1:47 PM Chest X-Ray 08/13/20 12:21 XR chest 1V portable HISTORY: weakness COMPARISON: Chest 03/14/2020. FINDINGS: No pneumothorax. No pleural effusions. Left subclavian Port-A-Cath terminates in the SVC. This remains unchanged. Right upper lobe masslike opacity remains unchanged. There is mild diffuse interstitial thickening and a right basilar airspace opacity which have improved. The heart remains mildly enlarged. There are poststernotomy changes. Prior cholecystectomy. IMPRESSION: 1. No change in the right upper lobe pulmonary mass. 2. Improved aeration within the right lung base. No new focal lung consolidations to suggest pneumonia. 3. Additional scattered pulmonary nodules consistent with metastatic disease are better appreciated on the recent chest CT. ACT 112: Negative or not required by law. Electronically signed by: Bucky Mclain M.D. 08/13/2020 12:[address] 08/13/20 12:[address] DOSE: HISTORY: Altered mental status. Headache. Confusion. TECHNIQUE: Multiaxial CT images of the head were performed without the use of intravenous contrast. Automated exposure control was utilized for this study. A dose lowering technique was utilized adhering to the principles of ALARA. Comparison: Head CT 09/23/2018. Findings: Mild motion artifact. The paranasal sinuses and mastoid air cells are clear. The calvarium and skull base are intact. There is no mass, hematoma, midline shift, acute infarct. White matter hypodensity is nonspecific but suggestive of microvascular ischemic change. The ventricles and sulci demonstrate mild age-related involutional changes. Asymmetric anterior subluxation of the right mandibular condyle in comparison to the left. Impression: 1. Motion artifact. No definite acute intracranial abnormality. 2. Asymmetric anterior subluxation of the right mandibular condyle in comparison to the left. This is likely positional. However, clinical correlation recommended to exclude the less likely possibility of a traumatic process. ACT 112: Negative or not required by law. Electronically signed by: Bucky Mclain M.D. 08/13/2020 1:10 PM Discharge Plan Visit Data Chief Complaint: Weakness Stated Complaint: WEAKNESS ED Provider: Srinivas Tyson Discharge Problem: Altered mental status, Weakness, Acute UTI Patient Disposition: Admitted As Inpatient Discharge Instructions Interventions: ED Discharge Assessment Last Done: 08/13/20 15:17 Discharge Problem: Altered mental status Qualifiers: Altered mental status type: unspecified Qualified Code(s): R41.82 - Altered mental status, unspecified
[2020-08-13] MEDS: prednisoLONE acetate 1% OP SUSP 5 ML BTL OPR SCH (20:49)
[2020-08-13] MEDS: METOPROLOL TARTRATE 25 MG TAB PO SCH (20:50)
[2020-08-13] MEDS: RALOXIFENE HCL 60 MG TAB PO SCH (20:51)
[2020-08-13] MEDS: RANOLAZINE 500 MG ER TAB PO SCH (20:51)
[2020-08-13] MEDS: SIMVASTATIN 40 MG TAB PO SCH (20:51)
[2020-08-13] MEDS: HEPARIN SOD 5,000 UNIT/0.5 ML VIAL SQ SCH (20:52)
[2020-08-13] MEDS ORDERED: prednisoLONE acetate 1% OP SUSP 5 ML BTL OPR SCH (21:00)
[2020-08-13] MEDS ORDERED: CEVIMELINE HCL PO SCH (21:00)
[2020-08-14] MEDS: ACETAMINOPHEN 325 MG TAB PO PRN ×3 (00:17→19:46)
[2020-08-14 08:52] LABS: Hematocrit (blood only) 28.7 % (37-47); Hemoglobin 9.4 g/dL (12.0-16.0); Mean Corpuscular Hgb Conc 32.8 g/dL (32-36); Mean Corpuscular Volume 79.3 fL (80-100); RDW Coefficient of Variation 17.4 % (11.5-14.5); RDW Standard Deviation 50.5 fL (36.4-46.3); Red Blood Count 3.62 M/uL (4.2-5.4); White Blood Count 8.54 K/uL (4.8-10.8)
[2020-08-14 09:10] LABS: Mean Platelet Volume 9.5 fL (7.4-10.4); Platelet Count 91 K/uL (130-400)
[2020-08-14 09:11] LABS: Platelet Estimate Decreased (Normal)
[2020-08-14] MEDS: POTASSIUM CHLORIDE 10 MEQ TABCR PO SCH ×3 (09:12→17:02)
[2020-08-14] MEDS: CEVIMELINE HCL PO SCH ×3 (09:12→17:02)
[2020-08-14] MEDS: CEROVITE ADV FORMULA TAB PO SCH (09:13)
[2020-08-14] MEDS: PANTOprazole 40 MG TAB PO SCH (09:13)
[2020-08-14] MEDS: predniSONE 1 MG TAB PO SCH (09:13)
[2020-08-14] MEDS: MAGNESIUM OXIDE 400 MG TAB PO SCH (09:13)
[2020-08-14] MEDS: RANOLAZINE 500 MG ER TAB PO SCH ×2 (09:14→21:13)
[2020-08-14] MEDS: CALCIUM 600MG + VIT D 400 IU TAB PO SCH ×2 (09:14→17:02)
[2020-08-14] MEDS: ISOSORBIDE MONO EXTENDED REL 60 MG TABCR PO SCH (09:14)
[2020-08-14] MEDS: METOPROLOL TARTRATE 25 MG TAB PO SCH ×2 (09:14→21:11)
[2020-08-14] MEDS: HEPARIN SOD 5,000 UNIT/0.5 ML VIAL SQ SCH ×2 (09:15→21:11)
[2020-08-14] MEDS: prednisoLONE acetate 1% OP SUSP 5 ML BTL OPL SCH ×4 (09:15→21:12)
[2020-08-14] MEDS: OFLOXACIN 0.3% OP SOLN 5 ML BTL OPL SCH ×4 (09:16→21:11)
[2020-08-14] MEDS: prednisoLONE acetate 1% OP SUSP 5 ML BTL OPR SCH ×2 (09:16→21:12)
[2020-08-14 09:22] LABS: Bilirubin Direct 0.1 mg/dl (0-0.2); Creatinine Clr Calc Pharmacy 33.8 ml/min; Est GFR (African American) 78.2; Est GFR (Non-African American) 67.5; Potassium 4.2 mmol/L (3.5-5.1)
[2020-08-14 09:25] LABS: Bilirubin,Total 0.6 mg/dl (0.2-1)
--- NOTE | 2020-08-14 09:41 | Hospitalist Progress Note ---
Date of Service August 14, 2020 Assessment & Plan (1) Acute UTI: * Admitted with generalized weakness for the past 5 days -- could also be secondary to progressive small cell lung ca as well * Has not had any chemotherapy since last October as discussed with Margarita Smith from hematology -- She did not believe that continued treatments would be tolerable by patient and has been treating her symptoms alone with the understanding that the patient does note that this is a progressive disease but is not interested in palliative consultation at this time. * She was given a dose of ceftriaxone in the emergency room and no further antibiotics were ordered * Urine culture with gram-negative bacillifollow * Temperature up to 39.2 C last evening with repeat temp of 38 and currently 37.2 C * obtained blood cultures especially given her port for hx small cell lung ca -- follow (although did get one dose Ceftriaxone in ER) * started on cefepime * We will obtain MRSA nasal swab and add on vancomycin if needed * Will obtain PT/OT evaluations to see if she would benefit from rehab at discharge * Patient states she is already feeling much better since admission. * WBC now wnl. Temp as above -- currently 37.2C * CTA negative for PE but does show significant increase in size of the right upper lobe cancer since CT of May 09, 2020. A portion of this could reflect postobstructive pneumonia however the findings suggest significant disease progression with increase in numerous pulmonary metastases and suspected mediastinal invasion. * Discussed CAT scan findings with Dr. Galicia and he did not feel that this was a postobstructive pneumonia as was previously the case last year during admission * Continue to monitor AM labs (2) Non-small cell lung cancer (NSCLC): * hx of, no longer getting chemo. also with large B cell Hodgkin * Discussed with oncology -- no more chemo as patient not able to tolerate and had been just routine follow up for symptoms with next appointment next week * She appears likely a candidate at least for palliative care -- wanting to hold off for now (3) HTN (hypertension): * Continue metoprolol tartrate -> consider switch to succinate * BP stable at 149/73 (4) Ischemic cardiomyopathy: * Continue usual home medication regimen with metoprolol tartrate 75mg BID, ISMN, ASA 81mg, ranexa 60mg HS, simvastatin 40mg HS * No chest pain. (5) COPD (chronic obstructive pulmonary disease): * breathing well at the moment. Continue Mucinex and benzonatate as needed * no issues at this time. * 92% on room air (6) Sjogren's disease: * Continue low dose prednisone and cevimeline. * Symptoms at baseline. May need stress dose steroids if she becomes hypotensive but will hold off for now (7) Severe protein-calorie malnutrition: * as stated above, she has a poor appetite (8) Immune deficiency disorder: * resume home meds -- Hizentra injections as an outpatient * is also on chronic prednisone daily - no s/sx adrenal crisis at this time but consider need for stress dose steroids if becomes hypotensive or symptomatic Glaucoma: * S/P surgery * on prednisolone eye drops. * ofloxacin. * follow up later this week planned Diarrhea * -- reported this afternoon * will check c.diff * Imodium prn if negative GERD * Continue protonix 40mg daily Microcytic Anemia * MCV 79.3 -- hx microcytic anemia but prior MCV >80. h/h 9.4/10.9 but was also given IVF. Will add fecal occult * Continue PPI as above * Will add iron studies to AM labs (prior iron, 17, trans % sat low 6, ferritin 498, transferrin 213 and received IV Venofer x 1 on 03/12 and recommended continued supplementation at discharge but is not on medications for this at this time) * CBC in AM, possible need for further IV iron transfusion DVT Prophylaxis * Heparin SQ while inpatient * ?continued prophylaxis in active ca patient Dispo: continued inpatient stay, changed to full admission (9) Underweight: samantha sethi from a nutrition consult -- ordered Her BMI is 17. Though she reports not losing much weight, she appears very brittle. Admission and Anticipated Discharge Date Admission Date: August 13, 2020 Supervising Physician Co-Signing Physician Notes CHARLES Supervision Note: I did not personally see or examine the patient today, but I verified all abraham points of CHARLES Alexis's assessment and plan with the following exceptions/additions: None Subjective Patient evaluated this afternoon. She states that she is feeling much improved from admission. No further fevers or chills and she can already feel herself getting somewhat stronger. Did recently have surgery for glaucoma and has follow up appointment on Thursday. Eating and drinking without difficulty. She has been moving her bowels this morning which have been loose. Discussed urine culture with bacteria we will await final culture and sensitivities and also that I had pulmonary team review her CAT scan imaging and did not feel that this was a postobstructive pneumonia kind of picture. Also discussed that I reached out to Margarita Smith from the cancer center regarding her treatment and that she will follow-up with her early next week. Discussed blood cultures given her temperature elevation last evening and would anticipate at least 48 hours in the hospital to ensure that these are negative given her port placement and risk for bacteremia. She denies any further fevers but is always cold. She denies chest pain shortness of breath or change in her chronic cough. She denies abdominal pain, nausea, vomiting or dysuria at this time. Questions and concerns addressed at this time. Review of Systems Review of Systems: All systems reviewed & are unremarkable except as noted in HPI & below Physical Exam Physical Exam: Constitutional: well developed and + frail appearing; + not well nourished and no acute distress Eyes: + anicteric sclerae; normal pupil size ENMT: Mouth: oral mucous membranes slightly dry (but improved per patient) Respiratory: Auscultation: no respiratory distress or cough noted, no accessory muscle use. not tachypneic. 92% on RA. + crackles bibasilar, R>L. No wheezes/rhonchi appreciated Chest: L port present Cardiovascular: RRR, no murmur, no edema Gastrointestinal (Abdomen): normal bowel sounds, soft, nontender, no hepatosplenomegaly Musculoskeletal: no cyanosis or clubbing, extremities motor strength 5/5 Neurologic: moves all extremities and awake; not confused Psychiatric: A+Ox3, euthymic affect Results & Data Results & Data ([facility]) Vital Signs (Past 12 Hours) Vital Signs Temp Pulse Resp BP BP Pulse Ox 08/14/20 09:20 79 158/86 H 92 08/14/20 07:30 37.0 C 73 16 137/74 94 08/14/20 02:27 37.6 C H 08/14/20 01:06 38 C H 08/13/20 23:51 39.2 C H 86 16 164/83 H 92 Laboratory Results 08/14/20 08/14/20 08/13/20 Range/Units 08:27 08:27 13:50 WBC 8.54 (4.8-10.8) K/uL RBC 3.62 L (4.2-5.4) M/uL Hgb 9.4 L (12.0-16.0) g/dL Hct 28.7 L (37-47) % MCV 79.3 L (80-100) fL MCH 26.0 (25-34) pg MCHC 32.8 (32-36) g/dL RDW Std Deviation 50.5 H (36.4-46.3) fL RDW Coeff of Marlene 17.4 H (11.5-14.5) % Plt Count 91 L (130-400) K/uL MPV 9.5 (7.4-10.4) fL Immature Gran % (Auto) % Neut % (Auto) % Lymph % (Auto) % Dodge % (Auto) % Eos % (Auto) % Baso % (Auto) % Neut # (Auto) (1.4-6.5) K/uL Lymph # (Auto) (1.2-3.4) K/uL [place] # (Auto) (0.11-0.59) K/uL Eos # (Auto) (0-0.5) K/uL Baso # (Auto) (0-0.2) K/uL Immature Gran # (Auto) (0.00-0.02) K/uL Platelet Estimate Decreased L (Normal) Sodium 138 (136-145) mmol/L Potassium 4.2 (3.5-5.1) mmol/L Chloride 110 H (98-107) mmol/L Carbon Dioxide 21 (21-32) mmol/L Anion Gap 7.0 (3-11) BUN 30 H (7-18) mg/dl Creatinine 0.84 (0.6-1.2) mg/dl Est Cr Clr Drug Dosing 33.8 Est GFR ( Amer) 78.2 Est GFR (Non-Af Amer) 67.5 BUN/Creatinine Ratio 36.0 H (10-20) Glucose 105 H (70-99) mg/dl Calcium 8.0 L (8.5-10.1) mg/dl Total Bilirubin 0.6 (0.2-1) mg/dl Direct Bilirubin 0.1 (0-0.2) mg/dl AST 32 (15-37) U/L ALT 25 (12-78) U/L Alkaline Phosphatase 108 (45-117) U/L Total Creatine Kinase (26-192) U/L CK-MB (CK-2) (0.5-3.6) ng/ml CK/CKMB % Calc Troponin I (0-0.045) ng/ml Total Protein 6.0 L (6.4-8.2) gm/dl Albumin 2.0 L (3.4-5.0) gm/dl Globulin (2.5-4.0) gm/dl Albumin/Globulin Ratio (0.9-2) Lipase (73-393) U/L TSH (0.300-4.500) uIu/ml Urine Color Urine Appearance (Clear) Urine pH (4.5-7.5) Ur Specific [place] (1.000-1.030) Urine Protein (Negative) Urine Glucose (UA) (Negative) Urine Ketones (Negative) Urine Blood (Negative) Urine Nitrite (Negative) Urine Bilirubin (Negative) Urine Urobilinogen (Negative) Ur Leukocyte Esterase (Negative) Urine WBC (Auto) (0-5) /hpf Urine RBC (Auto) (0-4) /hpf U Hyaline Cast (Auto) (0-5) /lpf U Epithel Cells (Auto) (0-5) /lpf Urine Bacteria (Auto) (Negative) COVID-19 Eval Order SARS-CoV-2 (PCR) NEGATIVE (Negative) Influenza Type A (PCR) Negative (Neg) Influenza Type B (PCR) Negative (Neg) RSV (RT-PCR) Negative (Neg) 08/13/20 08/13/20 08/13/20 Range/Units 13:50 12:20 12:15 WBC (4.8-10.8) K/uL RBC (4.2-5.4) M/uL Hgb (12.0-16.0) g/dL Hct (37-47) % MCV (80-100) fL MCH (25-34) pg MCHC (32-36) g/dL RDW Std Deviation (36.4-46.3) fL RDW Coeff of Marlene (11.5-14.5) % Plt Count (130-400) K/uL MPV (7.4-10.4) fL Immature Gran % (Auto) % Neut % (Auto) % Lymph % (Auto) % Dodge % (Auto) % Eos % (Auto) % Baso % (Auto) % Neut # (Auto) (1.4-6.5) K/uL Lymph # (Auto) (1.2-3.4) K/uL [place] # (Auto) (0.11-0.59) K/uL Eos # (Auto) (0-0.5) K/uL Baso # (Auto) (0-0.2) K/uL Immature Gran # (Auto) (0.00-0.02) K/uL Platelet Estimate (Normal) Sodium 136 (136-145) mmol/L Potassium 4.0 (3.5-5.1) mmol/L Chloride 108 H (98-107) mmol/L Carbon Dioxide 20 L (21-32) mmol/L Anion Gap 8.0 (3-11) BUN 37 H (7-18) mg/dl Creatinine 0.77 (0.6-1.2) mg/dl Est Cr Clr Drug Dosing Not Reportable Est GFR ( Amer) 86.9 Est GFR (Non-Af Amer) 75.0 BUN/Creatinine Ratio 48.6 H (10-20) Glucose 175 H (70-99) mg/dl Calcium 8.8 (8.5-10.1) mg/dl Total Bilirubin 0.7 (0.2-1) mg/dl Direct Bilirubin (0-0.2) mg/dl AST 45 H (15-37) U/L ALT 34 (12-78) U/L Alkaline Phosphatase 123 H (45-117) U/L Total Creatine Kinase 29 (26-192) U/L CK-MB (CK-2) < 1.0 (0.5-3.6) ng/ml CK/CKMB % Calc TNP Troponin I 0.025 (0-0.045) ng/ml Total Protein 6.8 (6.4-8.2) gm/dl Albumin 2.3 L (3.4-5.0) gm/dl Globulin 4.5 H (2.5-4.0) gm/dl Albumin/Globulin Ratio 0.5 L (0.9-2) Lipase 122 (73-393) U/L TSH 2.430 (0.300-4.500) uIu/ml Urine Color Dark Yellow Urine Appearance Clear (Clear) Urine pH 5.0 (4.5-7.5) Ur Specific [place] 1.024 (1.000-1.030) Urine Protein 2+ H (Negative) Urine Glucose (UA) Negative (Negative) Urine Ketones Negative (Negative) Urine Blood 2+ H (Negative) Urine Nitrite Positive A (Negative) Urine Bilirubin Negative (Negative) Urine Urobilinogen Negative (Negative) Ur Leukocyte Esterase Trace H (Negative) Urine WBC (Auto) 5-10 H (0-5) /hpf Urine RBC (Auto) 0-4 (0-4) /hpf U Hyaline Cast (Auto) 1-5 (0-5) /lpf U Epithel Cells (Auto) >30 H (0-5) /lpf Urine Bacteria (Auto) 2+ H (Negative) COVID-19 Eval Order CovFluRsv at [facility] SARS-CoV-2 (PCR) (Negative) Influenza Type A (PCR) (Neg) Influenza Type B (PCR) (Neg) RSV (RT-PCR) (Neg) 08/13/20 Range/Units 12:15 WBC 12.39 H (4.8-10.8) K/uL RBC 4.23 (4.2-5.4) M/uL Hgb 10.9 L (12.0-16.0) g/dL Hct 33.9 L (37-47) % MCV 80.1 (80-100) fL MCH 25.8 (25-34) pg MCHC 32.2 (32-36) g/dL RDW Std Deviation 50.4 H (36.4-46.3) fL RDW Coeff of Marlene 17.2 H (11.5-14.5) % Plt Count 109 L (130-400) K/uL MPV 9.3 (7.4-10.4) fL Immature Gran % (Auto) 0.2 % Neut % (Auto) 82.0 % Lymph % (Auto) 8.3 % Dodge % (Auto) 9.4 % Eos % (Auto) 0.1 % Baso % (Auto) 0.0 % Neut # (Auto) 10.15 H (1.4-6.5) K/uL Lymph # (Auto) 1.03 L (1.2-3.4) K/uL [place] # (Auto) 1.17 H (0.11-0.59) K/uL Eos # (Auto) 0.01 (0-0.5) K/uL Baso # (Auto) 0.00 (0-0.2) K/uL Immature Gran # (Auto) 0.03 H (0.00-0.02) K/uL Platelet Estimate (Normal) Sodium (136-145) mmol/L Potassium (3.5-5.1) mmol/L Chloride (98-107) mmol/L Carbon Dioxide (21-32) mmol/L Anion Gap (3-11) BUN (7-18) mg/dl Creatinine (0.6-1.2) mg/dl Est Cr Clr Drug Dosing Est GFR ( Amer) Est GFR (Non-Af Amer) BUN/Creatinine Ratio (10-20) Glucose (70-99) mg/dl Calcium (8.5-10.1) mg/dl Total Bilirubin (0.2-1) mg/dl Direct Bilirubin (0-0.2) mg/dl AST (15-37) U/L ALT (12-78) U/L Alkaline Phosphatase (45-117) U/L Total Creatine Kinase (26-192) U/L CK-MB (CK-2) (0.5-3.6) ng/ml CK/CKMB % Calc Troponin I (0-0.045) ng/ml Total Protein (6.4-8.2) gm/dl Albumin (3.4-5.0) gm/dl Globulin (2.5-4.0) gm/dl Albumin/Globulin Ratio (0.9-2) Lipase (73-393) U/L TSH (0.300-4.500) uIu/ml Urine Color Urine Appearance (Clear) Urine pH (4.5-7.5) Ur Specific [place] (1.000-1.030) Urine Protein (Negative) Urine Glucose (UA) (Negative) Urine Ketones (Negative) Urine Blood (Negative) Urine Nitrite (Negative) Urine Bilirubin (Negative) Urine Urobilinogen (Negative) Ur Leukocyte Esterase (Negative) Urine WBC (Auto) (0-5) /hpf Urine RBC (Auto) (0-4) /hpf U Hyaline Cast (Auto) (0-5) /lpf U Epithel Cells (Auto) (0-5) /lpf Urine Bacteria (Auto) (Negative) COVID-19 Eval Order SARS-CoV-2 (PCR) (Negative) Influenza Type A (PCR) (Neg) Influenza Type B (PCR) (Neg) RSV (RT-PCR) (Neg) Diagnostic Findings CT ANGIOGRAPHY OF THE CHEST, PULMONARY EMBOLUS PROTOCOL CLINICAL HISTORY: Weakness. Lung cancer. COMPARISON STUDY: Chest CT May 09, 2020. Chest radiograph performed earlier today. PET/CT January 10, 2019. TECHNIQUE: Following IV administration of Optiray, helical axial images of the chest were obtained utilizing the pulmonary embolus protocol. Maximal intensity projections and sagittal and coronal reformats were viewed on an independent 3D workstation. IV contrast was administered without complication. Automated exposure control was utilized for the study. A dose lowering technique was utilized adhering to the principles of ALARA. CT DOSE: 1288.44 mGy.cm FINDINGS: Note is made of median sternotomy wires and a left subclavian [id number]. No central or lobar pulmonary emboli are identified. The remainder of the pulmonary arteries are suboptimally assessed due to respiratory motion. The heart is moderately enlarged. There is moderate coronary artery calcific indication. No pericardial effusion is noted. There is no pneumothorax or pleural effusion. The previously described right upper lobe mass has signifi cantly increased in size since CT of May 09, 2020. This mass measures approximately 6.6 x 6.1 cm. It previously measured 5.3 x 4.2 cm. A portion of this could reflect postobstructive pneumonia. There is occlusion of right upper lobe bronchi. Suspected mediastinal invasion is noted. Prominent mediastinal and right hilar lymph nodes are again noted. These were shown on prior exam. Numerous pulmonary nodules are noted. These have increased in size since prior exam. Index right upper lobe nodule on image 153 measures 2 cm. It previously measured 1.6 cm. Superimposed inflammatory nodules may also be present. Lungs are suboptimally assessed given respiratory motion. There are no suspicious lesions within the bony thorax. Right hepatic lobe lesions are unchanged and are shown to represent hemangiomas on earlier MRI. Diffuse nodular wall thickening and bronchiectasis within the right middle lobe is again noted. IMPRESSION: 1. No central or lobar pulmonary emboli. Remainder of pulmonary arteries suboptimally assessed due to respiratory motion. 2. Significant increase in size of the right upper lobe cancer since CT of May 09, 2020. A portion of this could reflect postobstructive pneumonia however the findings suggest significant disease progression with increase in numerous pulmonary metastases and suspected mediastinal invasion. 3. Suspected superimposed inflammatory nodules, as shown on prior exam. XR chest 1V portable HISTORY: weakness COMPARISON: Chest 03/14/2020. FINDINGS: No pneumothorax. No pleural effusions. Left subclavian Port-A-Cath terminates in the SVC. This remains unchanged. Right upper lobe masslike opacity remains unchanged. There is mild diffuse interstitial thickening and a right basilar airspace opacity which have improved. The heart remains mildly enlarged. There are poststernotomy changes. Prior cholecystectomy. IMPRESSION: 1. No change in the right upper lobe pulmonary mass. 2. Improved aeration within the right lung base. No new focal lung consolidations to suggest pneumonia. 3. Additional scattered pulmonary nodules consistent with metastatic disease are better appreciated on the recent chest CT. HEAD CT NONCONTRAST CT DOSE: HISTORY: Altered mental status. Headache. Confusion. TECHNIQUE: Multiaxial CT images of the head were performed without the use of intravenous contrast. Automated exposure control was utilized for this study. A dose lowering technique was utilized adhering to the principles of ALARA. Comparison: Head CT 09/23/2018. Findings: Mild motion artifact. The paranasal sinuses and mastoid air cells are clear. The calvarium and skull base are intact. There is no mass, hematoma, midline shift, acute infarct. White matter hypodensity is nonspecific but suggestive of microvascular ischemic change. The ventricles and sulci demonstrate mild age-related involutional changes. Asymmetric anterior subluxation of the right mandibular condyle in comparison to the left. Impression: 1. Motion artifact. No definite acute intracranial abnormality. 2. Asymmetric anterior subluxation of the right mandibular condyle in comparison to the left. This is likely positional. However, clinical correlation recommended to exclude the less likely possibility of a traumatic process. PG Care Time/CCT Total # of Minutes Spent Total Time Spent with Patient: Total time spent is greater than 50% in coordination of care (as documented) at patient's floor/unit and/or counseling patient: Coding Level of Care Code 50751 Subseq Hosp Care Lvl 3 Diagnoses Acute UTI N39.0 Non-small cell lung cancer (NSCLC) C34.91 Laterality: right HTN (hypertension) I10 Ischemic cardiomyopathy I25.5 COPD (chronic obstructive pulmonary disease) J44.0 COPD type: COPD with acute lower respiratory infection Sjogren's disease M35.00 Severe protein-calorie malnutrition E43 Immune deficiency disorder D84.9 Underweight R63.6 (1) Non-small cell lung cancer (NSCLC) Laterality: right Qualified Code(s): C34.91 - Malignant neoplasm of unspe cified part of right bronchus or lung (2) COPD (chronic obstructive pulmonary disease) COPD type: COPD with acute lower respiratory infection Qualified Code(s): J44.0 - Chronic obstructive pulmonary disease with acute lower respiratory infection
[2020-08-14] MEDS: ASPIRIN 81 MG ECTAB PO SCH (12:23)
[2020-08-14] MEDS: CEFEPIME 2,000 MG in SYRINGE 0 ML IV SCH (15:05)
[2020-08-14] MEDS: HEPARIN 100 UNIT/ML 5ML FLUSH FLUSH PRN (15:08)
[2020-08-14] MEDS: ONDANSETRON 4 MG OD TAB PO PRN (19:45)
[2020-08-14] MEDS: RALOXIFENE HCL 60 MG TAB PO SCH (21:13)
[2020-08-14] MEDS: SIMVASTATIN 40 MG TAB PO SCH (21:13)
[2020-08-15] MEDS ORDERED: diphenhydrAMINE Capsule 25 MG CAP PO ONE (02:02)
[2020-08-15] MEDS: CEFEPIME 2,000 MG in SYRINGE 0 ML IV SCH ×2 (03:51→16:42)
[2020-08-15] MEDS: HEPARIN 100 UNIT/ML 5ML FLUSH FLUSH PRN (03:52)
[2020-08-15 06:56] LABS: Basophils # (auto) 0.01 K/uL (0-0.2); Basophils % (auto) 0.1 %; Eosinophils # (auto) 0.04 K/uL (0-0.5); Eosinophils % (auto) 0.4 %; Hematocrit (blood only) 29.2 % (37-47); Hemoglobin 9.6 g/dL (12.0-16.0); Immature Granulocytes # (auto) 0.02 K/uL (0.00-0.02); Immature Granulocytes % (auto) 0.2 %; Lymphocytes # (auto) 1.38 K/uL (1.2-3.4); Lymphocytes % (auto) 14.7 %; Mean Corpuscular Hemoglobin 26.2 pg (25-34); Mean Corpuscular Hgb Conc 32.9 g/dL (32-36); Mean Corpuscular Volume 79.8 fL (80-100); Mean Platelet Volume 9.9 fL (7.4-10.4); Monocytes # (auto) 0.77 K/uL (0.11-0.59); Monocytes % (auto) 8.2 %; Neutrophils # (auto) 7.15 K/uL (1.4-6.5); Neutrophils % (auto) 76.4 %; Platelet Count 102 K/uL (130-400); RDW Coefficient of Variation 17.4 % (11.5-14.5); RDW Standard Deviation 50.6 fL (36.4-46.3); Red Blood Count 3.66 M/uL (4.2-5.4); White Blood Count 9.37 K/uL (4.8-10.8)
[2020-08-15 07:31] LABS: BUN Creatinine Ratio 34.5 (10-20); Calcium 8.2 mg/dl (8.5-10.1); Creatinine Clr Calc Pharmacy 37.4 ml/min; Est GFR (African American) 88.3; Est GFR (Non-African American) 76.2; Potassium 4.2 mmol/L (3.5-5.1)
[2020-08-15 07:35] LABS: Bilirubin Direct 0.1 mg/dl (0-0.2); Bilirubin,Total 0.6 mg/dl (0.2-1); Ferritin 103.3 ng/ml (8-388); Total Protein 6.3 gm/dl (6.4-8.2)
[2020-08-15] MEDS: HEPARIN SOD 5,000 UNIT/0.5 ML VIAL SQ SCH ×2 (08:17→20:25)
[2020-08-15] MEDS: ACETAMINOPHEN 325 MG TAB PO PRN ×2 (08:17→18:16)
[2020-08-15] MEDS: RANOLAZINE 500 MG ER TAB PO SCH ×2 (08:18→20:29)
[2020-08-15] MEDS: POTASSIUM CHLORIDE 10 MEQ TABCR PO SCH ×3 (08:18→17:24)
[2020-08-15] MEDS: MAGNESIUM OXIDE 400 MG TAB PO SCH (08:18)
[2020-08-15] MEDS: PANTOprazole 40 MG TAB PO SCH ×2 (08:18→20:30)
[2020-08-15] MEDS: CALCIUM 600MG + VIT D 400 IU TAB PO SCH ×2 (08:18→17:23)
[2020-08-15] MEDS: predniSONE 1 MG TAB PO SCH (08:18)
[2020-08-15] MEDS: CEROVITE ADV FORMULA TAB PO SCH (08:19)
[2020-08-15] MEDS: METOPROLOL TARTRATE 25 MG TAB PO SCH ×2 (08:19→20:31)
[2020-08-15] MEDS: ISOSORBIDE MONO EXTENDED REL 60 MG TABCR PO SCH (08:19)
[2020-08-15] MEDS: OFLOXACIN 0.3% OP SOLN 5 ML BTL OPL SCH ×4 (08:20→20:25)
--- NOTE | 2020-08-15 08:22 | Hospitalist Progress Note ---
Date of Service August 15, 2020 Assessment & Plan (1) Acute UTI: * Admitted with generalized weakness for the past 5 days -- could also be secondary to progressive small cell lung ca as well (AND ANEMIA) * Has not had any chemotherapy since last October as discussed with Margarita Smith from hematology -- She did not believe that continued treatments would be tolerable by patient and has been treating her symptoms alone with the understanding that the patient does note that this is a progressive disease but is not interested in palliative consultation at this time. * She was given a dose of ceftriaxone in the emergency room * CTA negative for PE but does show significant increase in size of the right upper lobe cancer since CT of May 09, 2020. A portion of this could reflect postobstructive pneumonia however the findings suggest significant disease progression with increase in numerous pulmonary metastases and suspected mediastinal invasion. * Discussed CAT scan findings with Dr. Galicia and he did not feel that this was a postobstructive pneumonia as was previously the case last year during admission * Temperature up to 39.2 C evening 08/13 and low grade temps today * --> Incentive spirometer to promote pulmonary toilet although no shortness of breath or change in chronic cough * BCx pending given temp, especially given her port for hx small cell lung ca -- follow (although did get one dose Ceftriaxone in ER) -- pending. NGTD * Urine culture with gram-negative bacilli-->Klebsiella--> plans for switch to Keflex QID tomorrow for 5 day course * started on cefepime 08/14, continued (day 2 of therapy) * MRSA nasal NEGATIVE * WBC wnl. Temp as above -- currently 37.4C * PT/OT evals pending -- patient said she was seen this AM and did well * Continue to monitor AM labs (2) Non-small cell lung cancer (NSCLC): * hx of, no longer getting chemo. also with large B cell Hodgkin * Discussed with oncology -- no more chemo as patient not able to tolerate and had been just routine follow up for symptoms with next appointment next week * She appears likely a candidate at least for palliative care -- wanting to hold off for now (3) HTN (hypertension): * Continue metoprolol tartrate -> consider switch to succinate * BP stable at 167/72 (4) Ischemic cardiomyopathy: * Continue usual home medication regimen with metoprolol tartrate 75mg BI D, ISMN, ASA 81mg, ranexa 60mg HS, simvastatin 40mg HS * No chest pain. (5) COPD (chronic obstructive pulmonary disease): * breathing well at the moment. Continue Mucinex and benzonatate as needed * no issues at this time. * 90% on room air (6) Sjogren's disease: * Continue low dose prednisone and cevimeline. * Symptoms at baseline. May need stress dose steroids if she becomes hypotensive but will hold off for now (7) Severe protein-calorie malnutrition: * as stated above, she has a poor appetite -- improved * nutritional supp (8) Immune deficiency disorder: * resume home meds -- Hizentra injections as an outpatient * is also on chronic prednisone daily - no s/sx adrenal crisis at this time but consider need for stress dose steroids if becomes hypotensive or symptomatic Glaucoma: * S/P surgery * on prednisolone eye drops. * ofloxacin continued * BID to L eye, QID to R eye -- discussed with nursing and resumed after holding this morning for confusion with ordered * follow up later this week planned on Thursday Diarrhea * -- reported, improved * will check c.diff -- NEGATIVE * Imodium prn if negative * +Fecal occult --> Will consult GI GERD * Continue protonix 40mg daily Microcytic Anemia * MCV 79.3 -- hx microcytic anemia but prior MCV >80. h/h 9.4/10.9 but was also given IVF. * Will add fecal occult -- + and GI consulted as above * Continue PPI as above but increased to BID * Prior iron, 17, trans % sat low 6, ferritin 498, transferrin 213 and received IV Venofer x 1 on 03/12 and recommended continued supplementation at discharge but is not on medications for this at this time * Studies added this admission : * Iron 19, Transferrin 195, Trans % sat 7 --> LOW. * TIBC 250 wnl, ferritin 103 wnl. * --> Ferrous sulfate PO BID (would hold off on IV Venofer until Bcx negative for at least 48 hours) * --> could have Venofer infusions with Margarita Smith outpatient if needed/unable to tolerate PO hgb improved to 9.6/29.2 -- follow CBC in AM DVT Prophylaxis * Heparin SQ while inpatient * ?continued prophylaxis in active ca patient Dispo: continued inpatient stay, changed to full admission (9) Underweight: samantha sethi from a nutrition consult -- ordered Her BMI is 17. Though she reports not losing much weight, she appears very brittle. Admission and Anticipated Discharge Date Admission Date: August 14, 2020 Supervising Physician Co-Signing Physician Notes CHARLES Supervision Note: I did not personally see or examine the patient today, but I verified all abraham points of CHARLES Alexis's assessment and plan with the following exceptions/additions: Also with anion gap metabolic acidosis, could be secondary to GI losses with diarrhea. Subjective Patient seen this morning. States she feels "great". Urine culture with Klebsiella and discussed changing to PO tomorrow. Breathing stable. Some nausea this monning which resolved with medication. Bowel movements have slowed down with imodium. Cdiff negative. FOCB + and will ask GI to weigh in. Discussed low iron and will place on oral supplementation which can cause some GI upset and will give dose of Venofer tomorrow if blood cultures remain negative. She is hopeful for d/c tomorrow. No fever, chills, chest pain, shortness of breath, abdominal pain, dysuria at t his time. Eye drops BID to to R eye and QID to L eye -- will discuss with nursing to administer. Questions/concerns addressed at this time. Review of Systems Review of Systems: All systems reviewed & are unremarkable except as noted in HPI & below Physical Exam Physical Exam: Constitutional: well developed and + frail appearing; + not well nourished and no acute distress Eyes: + anicteric sclerae; normal pupil size ENMT: Mouth: oral mucous membranes slightly moist Respiratory: Auscultation: no respiratory distress or cough noted, no accessory muscle use. not tachypneic. 90% on RA. + crackles bibasilar (improved), bronchial breath sounds. No wheezes/rhonchi appreciated Chest: L port present Cardiovascular: RRR, no murmur, no edema Gastrointestinal (Abdomen): normal bowel sounds, soft, nontender, no hepatosplenomegaly Musculoskeletal: no cyanosis or clubbing, extremities motor strength 5/5 Neurologic: moves all extremities and awake; not confused Psychiatric: A+Ox3, euthymic affect Results & Data Results & Data ([facility]) Vital Signs (Past 12 Hours) Vital Signs Temp Pulse Resp BP BP Pulse Ox 08/15/20 07:05 37.7 C H 96 H 18 160/72 H 90 08/14/20 23:45 37.1 C 08/14/20 22:42 37.7 C H 82 18 132/68 93 08/14/20 21:08 90 160/80 H Laboratory Results 08/15/20 08/15/20 08/14/20 Range/Units 05:46 05:46 18:56 WBC 9.37 (4.8-10.8) K/uL RBC 3.66 L (4.2-5.4) M/uL Hgb 9.6 L (12.0-16.0) g/dL Hct 29.2 L (37-47) % MCV 79.8 L (80-100) fL MCH 26.2 (25-34) pg MCHC 32.9 (32-36) g/dL RDW Std Deviation 50.6 H (36.4-46.3) fL RDW Coeff of Marlene 17.4 H (11.5-14.5) % Plt Count 102 L (130-400) K/uL MPV 9.9 (7.4-10.4) fL Immature Gran % (Auto) 0.2 % Neut % (Auto) 76.4 % Lymph % (Auto) 14.7 % Wilson % (Auto) 8.2 % Eos % (Auto) 0.4 % Baso % (Auto) 0.1 % Neut # (Auto) 7.15 H (1.4-6.5) K/uL Lymph # (Auto) 1.38 (1.2-3.4) K/uL Wilson # (Auto) 0.77 H (0.11-0.59) K/uL Eos # (Auto) 0.04 (0-0.5) K/uL Baso # (Auto) 0.01 (0-0.2) K/uL Immature Gran # (Auto) 0.02 (0.00-0.02) K/uL Platelet Estimate (Normal) Sodium 135 L (136-145) mmol/L Potassium 4.2 (3.5-5.1) mmol/L Chloride 108 H (98-107) mmol/L Carbon Dioxide 20 L (21-32) mmol/L Anion Gap 7.0 (3-11) BUN 26 H (7-18) mg/dl Creatinine 0.76 (0.6-1.2) mg/dl Est Cr Clr Drug Dosing 37.4 ml/min Est GFR ( Amer) 88.3 Est GFR (Non-Af Amer) 76.2 BUN/Creatinine Ratio 34.5 H (10-20) Glucose 97 (70-99) mg/dl Calcium 8.2 L (8.5-10.1) mg/dl Iron 19 L (35-150) mcg/dl TIBC 250 (250-450) mcg/dl Transferrin 195 L (200-360) mg/dl Transferrin % Sat 7 L (15-50) % Ferritin 103.3 (8-388) ng/ml Total Bilirubin 0.6 (0.2-1) mg/dl Direct Bilirubin 0.1 (0-0.2) mg/dl AST 35 (15-37) U/L ALT 26 (12-78) U/L Alkaline Phosphatase 114 (45-117) U/L Total Protein 6.3 L (6.4-8.2) gm/dl Albumin 2.0 L (3.4-5.0) gm/dl Nasal Screen MRSA (PCR) (Negative) Stl C. diff Tox B Gene Negative Cdiff Gene (Neg) 08/14/20 08/14/20 08/14/20 Range/Units 15:15 08:27 08:27 WBC 8.54 (4.8-10.8) K/uL RBC 3.62 L (4.2-5.4) M/uL Hgb 9.4 L (12.0-16.0) g/dL Hct 28.7 L (37-47) % MCV 79.3 L (80-100) fL MCH 26.0 (25-34) pg MCHC 32.8 (32-36) g/dL RDW Std Deviation 50.5 H (36.4-46.3) fL RDW Coeff of Marlene 17.4 H (11.5-14.5) % Plt Count 91 L (130-400) K/uL MPV 9.5 (7.4-10.4) fL Immature Gran % (Auto) % Neut % (Auto) % Lymph % (Auto) % Wilson % (Auto) % Eos % (Auto) % Baso % (Auto) % Neut # (Auto) (1.4-6.5) K/uL Lymph # (Auto) (1.2-3.4) K/uL Wilson # (Auto) (0.11-0.59) K/uL Eos # (Auto) (0-0.5) K/uL Baso # (Auto) (0-0.2) K/uL Immature Gran # (Auto) (0.00-0.02) K/uL Platelet Estimate Decreased L (Normal) Sodium 138 (136-145) mmol/L Potassium 4.2 (3.5-5.1) mmol/L Chloride 110 H (98-107) mmol/L Carbon Dioxide 21 (21-32) mmol/L Anion Gap 7.0 (3-11) BUN 30 H (7-18) mg/dl Creatinine 0.84 (0.6-1.2) mg/dl Est Cr Clr Drug Dosing 33.8 ml/min Est GFR ( Amer) 78.2 Est GFR (Non-Af Amer) 67.5 BUN/Creatinine Ratio 36.0 H (10-20) Glucose 105 H (70-99) mg/dl Calcium 8.0 L (8.5-10.1) mg/dl Iron (35-150) mcg/dl TIBC (250-450) mcg/dl Transferrin (200-360) mg/dl Transferrin % Sat (15-50) % Ferritin (8-388) ng/ml Total Bilirubin 0.6 (0.2-1) mg/dl Direct Bilirubin 0.1 (0-0.2) mg/dl AST 32 (15-37) U/L ALT 25 (12-78) U/L Alkaline Phosphatase 108 (45-117) U/L Total Protein 6.0 L (6.4-8.2) gm/dl Albumin 2.0 L (3.4-5.0) gm/dl Nasal Screen MRSA (PCR) Negative (Negative) Stl C. diff Tox B Gene (Neg) PG Care Time/CCT Total # of Minutes Spent Total Time Spent with Patient: Total time spent is greater than 50% in coordination of care (as documented) at patient's floor/unit and/or counseling patient: Coding Level of Care Code 44260 Subseq Hosp Care Lvl 3 Diagnoses Acute UTI N39.0 Non-small cell lung cancer (NSCLC) C34.91 Laterality: right HTN (hypertension) I10 Ischemic cardiomyopathy I25.5 COPD (chronic obstructive pulmonary disease) J44.0 COPD type: COPD with acute lower respiratory infection Sjogren's disease M35.00 Severe protein-calorie malnutrition E43 Immune deficiency disorder D84.9 Underweight R63.6 (1) Non-small cell lung cancer (NSCLC) Laterality: right Qualified Code(s): C34.91 - Malignant neoplasm of unspecified part of right bronchus or lung (2) COPD (chronic obstructive pulmonary disease) COPD type: COPD with acute lower respiratory infection Qualified Code(s): J44.0 - Chronic obstructive pulmonary disease with acute lower respiratory infection
[2020-08-15] MEDS: CEVIMELINE HCL PO SCH ×3 (08:28→17:21)
[2020-08-15] MEDS ORDERED: FERROUS SULFATE 325 MG TAB PO SCH (09:00)
[2020-08-15] MEDS: ONDANSETRON 4 MG OD TAB PO PRN ×2 (09:28→18:16)
[2020-08-15] MEDS: LOPERAMIDE HCL 2 MG CAP PO PRN ×2 (09:28→13:39)
[2020-08-15] MEDS: prednisoLONE acetate 1% OP SUSP 5 ML BTL OPL SCH ×4 (10:03→20:25)
[2020-08-15] MEDS: ASPIRIN 81 MG ECTAB PO SCH (11:39)
--- NOTE | 2020-08-15 14:42 | Gastrointestinal Consultation ---
Date of Consultation August 15, 2020 Assessment & Plan (1) Heme positive stool: Fe def anemia Not a candidate for procedures given progressive non treatable cancer. Would stop ASA in case this is causing PUD, continue PPI and give Fe po or IV as needed and transfuse prn. Will sign off. Please call for further questions. History of Present Illness Reason for Consultation: heme pos stool Requesting Physician: Chantelle Alexis PA-C Attending Physician: Deborah Lynch MD History of Present Illness CC no GI complaint admited for weaknes HPI Pt admitted for weakness, confusion and UTI. She was noted to be anemia Hgb dip to 9.6 baseline 10.4 with low Fe sat, normal ferritin and stool heme positive. Pt is on ASA and prednisone as possible inciting factors but also Protonix listed on home meds. Pt denies abd pain, bloody stools and black stools. She has non small cell progressive lung cancer not a candidate for further treatment given functional status. Allergies Allergy/AdvReac Type Severity Reaction Status Date / Time No Known Allergies Allergy Verified 08/13/20 13:05 Home Medications Medication Instructions Recorded Confirmed Type cevimeline 30 mg PO TIDM 06/21/18 08/13/20 History isosorbide mononitrate 60 mg PO QAM 06/21/18 08/13/20 History magnesium 500 mg PO QAM 06/21/18 08/13/20 History ondansetron 8 mg PO Q8H PRN 06/21/18 08/13/20 History potassium chloride 10 meq PO TIDM 06/21/18 08/13/20 History raloxifene 60 mg PO QPM 06/21/18 08/13/20 History ranolazine [Ranexa] 500 mg PO AMHS 06/21/18 08/13/20 History simvastatin 40 mg PO HS 06/21/18 08/13/20 History Calcium 600 + D(3) 1 cap PO BIDM 09/06/18 08/13/20 History pantoprazole 40 mg PO QAM 09/23/18 08/13/20 History immun glob G 4 gram/20 mL(20 8 gm SQ WEEKLY ml 02/16/19 08/13/20 History %)-prol-IgA 0-50 mcg/mL subcutaneous soln prednisone 1 mg tablet,delayed 3 mg PO QAM tab 02/16/19 08/13/20 History release prochlorperazine maleate 10 mg PO Q8H PRN 04/05/19 08/13/20 History [Compazine] Plexus-Probio 5 1 dose PO DAILY 03/11/20 08/13/20 History albuterol sulfate 2 puffs INH AMPM 03/11/20 08/13/20 History aspirin [Aspirin Low Dose] 81 mg PO QAM 03/11/20 08/13/20 History benzonatate 100 mg PO Q6H PRN 03/11/20 08/13/20 History epinephrine [EpiPen] 0.3 mg IM Q3H PRN 03/11/20 08/13/20 History metoprolol tartrate 75 mg PO AMHS 03/11/20 08/13/20 History shpgucgvxjdm-hsmrjego-htxwud 1 tab PO DAILY 03/11/20 08/13/20 History nitroglycerin [Nitrostat] 0.4 mg SUBLINGUAL DIRECTED PRN 03/11/20 08/13/20 History guaifenesin [Mucinex] 600 mg PO Q12 PRN 08/13/20 08/13/20 History ofloxacin 1 drp OPL QID 08/13/20 08/13/20 History prednisolone acetate 1 drp OPL QID 08/13/20 08/13/20 History Patient History Medical History CAD (coronary artery disease), tolowa dee-ni' coronary artery With stable angina COPD exacerbation GERD (gastroesophageal reflux disease) DIET CONTROLLED History of lung cancer dx 2018 chemo History of lymphoma dx 2016, in remission Hyperlipidemia Hypertension Hypogammaglobulinemia Immunodeficiency Immunosuppression Mitral regurgitation mild to moderate Osteoporosis Sjogren's disease Steroid dependence sjogrens disease TIA (transient ischemic attack) 12/14/2018, TIA vs possible seizure. Surgical History History of arthroscopy RIGHT KNEE MENISCUS History of cataract surgery RT History of cholecystectomy History of colonoscopy History of coronary artery bypass graft 4 VESSEL, [facility] 6 YEARS AGO History of hysterectomy Family History Unknown Heart disease Other Family history non-contributory Social History Smoking Status: Never smoker Second Hand Exposure: No; Do You Dip or Chew Tobacco: No; Tobacco Cessation Education Requested by Patient: No Hx Alcohol Use: No Hx Substance Use: No Preferred Language: [place]i Communication Ability: Effective Market Risk Manager Required: No Beliefs That Will Affect Care: None marital status: Current Living Situation: Spouse current occupational status: retired 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 Other Information That Helps Us Care for You: No Feels Safe at Home: Yes Assistive Devices: None Review of Systems Review of Systems: All systems reviewed & are unremarkable except as noted in HPI & below Physical Exam Constitutional: WD/WN, vitals as above Eyes: PERRL, conjunctivae normal, anicteric sclerae ENMT: external ear and nose normal Neck: normal visual inspection and trachea midline Respiratory: normal respiratory effort Cardiovascular: RRR, no murmur, no edema Gastrointestinal (Abdomen): pos bs, soft, no guarding nor rebound Musculoskeletal: Head/Neck/Chest: normocephalic and neck supple Neurologic: PERRL, EOMI, accommodation nl, no face palsy, no dysarthria Psychiatric: A+Ox3, euthymic affect Results & Data ([facility]) Vital Signs (Past 12 Hours) Vital Signs Temp Pulse Resp BP BP Pulse Ox 08/15/20 14:32 36.5 C 75 16 124/67 93 08/15/20 08:47 37.4 C 08/15/20 07:05 37.7 C H 96 H 18 160/72 H 90
[2020-08-15] MEDS: FERROUS SULFATE 325 MG TAB PO SCH (17:22)
[2020-08-15 18:24] LABS: Prothrombin Time 10.3 Seconds (9.0-12.0)
[2020-08-15] MEDS: prednisoLONE acetate 1% OP SUSP 5 ML BTL OPR SCH (20:24)
[2020-08-15] MEDS: RALOXIFENE HCL 60 MG TAB PO SCH (20:27)
[2020-08-15] MEDS: SIMVASTATIN 40 MG TAB PO SCH (20:29)
[2020-08-16] MEDS ORDERED: diphenhydrAMINE Capsule 25 MG CAP PO ONE (00:14)
[2020-08-16] MEDS: CEFEPIME 2,000 MG in SYRINGE 0 ML IV SCH (03:49)
[2020-08-16] MEDS: HEPARIN 100 UNIT/ML 5ML FLUSH FLUSH PRN ×2 (03:49→12:49)
[2020-08-16 05:58] LABS: Basophils # (auto) 0.01 K/uL (0-0.2); Basophils % (auto) 0.1 %; Eosinophils # (auto) 0.09 K/uL (0-0.5); Eosinophils % (auto) 1.1 %; Hematocrit (blood only) 28.5 % (37-47); Hemoglobin 9.1 g/dL (12.0-16.0); Immature Granulocytes # (auto) 0.02 K/uL (0.00-0.02); Immature Granulocytes % (auto) 0.2 %; Lymphocytes # (auto) 1.34 K/uL (1.2-3.4); Lymphocytes % (auto) 16.3 %; Mean Corpuscular Hemoglobin 25.4 pg (25-34); Mean Corpuscular Hgb Conc 31.9 g/dL (32-36); Mean Corpuscular Volume 79.6 fL (80-100); Mean Platelet Volume 9.5 fL (7.4-10.4); Monocytes # (auto) 0.79 K/uL (0.11-0.59); Monocytes % (auto) 9.6 %; Neutrophils # (auto) 5.96 K/uL (1.4-6.5); Neutrophils % (auto) 72.7 %; Platelet Count 114 K/uL (130-400); RDW Coefficient of Variation 17.6 % (11.5-14.5); RDW Standard Deviation 51.3 fL (36.4-46.3); Red Blood Count 3.58 M/uL (4.2-5.4); White Blood Count 8.21 K/uL (4.8-10.8)
[2020-08-16 06:38] LABS: Albumin Globulin Ratio 0.4 (0.9-2); Albumin Level 1.9 gm/dl (3.4-5.0); BUN Creatinine Ratio 41.8 (10-20); Bilirubin,Total 0.6 mg/dl (0.2-1); Calcium 7.9 mg/dl (8.5-10.1); Creatinine Clr Calc Pharmacy 36.9 ml/min; Est GFR (African American) 86.9; Globulin 4.3 gm/dl (2.5-4.0); Magnesium 2.3 mg/dl (1.8-2.4); Total Protein 6.2 gm/dl (6.4-8.2)
[2020-08-16] MEDS: prednisoLONE acetate 1% OP SUSP 5 ML BTL OPL SCH ×4 (07:59→20:46)
[2020-08-16] MEDS: prednisoLONE acetate 1% OP SUSP 5 ML BTL OPR SCH ×2 (07:59→20:46)
[2020-08-16] MEDS: CEVIMELINE HCL PO SCH ×3 (08:01→18:05)
[2020-08-16] MEDS: ISOSORBIDE MONO EXTENDED REL 60 MG TABCR PO SCH (08:02)
[2020-08-16] MEDS: PANTOprazole 40 MG TAB PO SCH ×2 (08:02→20:47)
[2020-08-16] MEDS: RANOLAZINE 500 MG ER TAB PO SCH ×2 (08:02→20:48)
[2020-08-16] MEDS: CEROVITE ADV FORMULA TAB PO SCH (08:02)
[2020-08-16] MEDS: HEPARIN SOD 5,000 UNIT/0.5 ML VIAL SQ SCH ×2 (08:02→20:44)
[2020-08-16] MEDS: FERROUS SULFATE 325 MG TAB PO SCH (08:02)
[2020-08-16] MEDS: POTASSIUM CHLORIDE 10 MEQ TABCR PO SCH ×3 (08:02→18:05)
[2020-08-16] MEDS: MAGNESIUM OXIDE 400 MG TAB PO SCH (08:02)
[2020-08-16] MEDS: predniSONE 1 MG TAB PO SCH (08:02)
[2020-08-16] MEDS: CALCIUM 600MG + VIT D 400 IU TAB PO SCH ×2 (08:02→18:05)
[2020-08-16] MEDS: METOPROLOL TARTRATE 25 MG TAB PO SCH ×2 (08:03→20:45)
[2020-08-16] MEDS: OFLOXACIN 0.3% OP SOLN 5 ML BTL OPL SCH ×4 (08:13→20:47)
--- NOTE | 2020-08-16 09:41 | Hospitalist Progress Note ---
Date of Service August 16, 2020 Assessment & Plan (1) Acute UTI: * Admitted with generalized weakness for the past 5 days -- could also be secondary to progressive small cell lung ca as well (AND ANEMIA) * Has not had any chemotherapy since last October as discussed with Margarita Smith from hematology -- She did not believe that continued treatments would be tolerable by patient and has been treating her symptoms alone with the understanding that the patient does note that this is a progressive disease but is not interested in palliative consultation at this time. * She was given a dose of ceftriaxone in the emergency room * CTA negative for PE but does show significant increase in size of the right upper lobe cancer since CT of May 09, 2020. A portion of this could reflect postobstructive pneumonia however the findings suggest significant disease progression with increase in numerous pulmonary metastases and suspected mediastinal invasion. * Discussed CAT scan findings with Dr. Galicia and he did not feel that this was a postobstructive pneumonia as was previously the case last year during admission * Temperature up to 39.2 C evening 08/13 * --> Incentive spirometer to promote pulmonary toilet although no shortness of breath or change in chronic cough * BCx pending given temp, especially given her port for hx small cell lung ca -- follow (although did get one dose Ceftriaxone in ER) -- pending. NGTD * Urine culture with gram-negative bacilli-->Klebsiella--> initially plans for switch to Keflex QID tomorrow for 10 day course for possible pyelo Patient states she was feeling great this mo started on cefepime 08/14, continued (day 3 of therapy) MRSA nasal NEGATIVE WBC wnl. Temp as above and had been afebrile except for some minor temps 37.7 since 08/14 but NOW TEMP 38.1C after plans for d/c this morning Discharge cancelled Repeating blood cultures (drawn after abx in ER initially) -- concerns for port infection -- if + need to obtain ECHO repeat UA, CXR, Lyme, Anaplasmosis Continue to monitor labs/vitals/temps Continued inpatient stay (2) Gram negative sepsis: As above Present on Admission?: Yes (3) Non-small cell lung cancer (NSCLC): * hx of, no longer getting chemo. also with large B cell Hodgkin * Discussed with oncology -- no more chemo as patient not able to tolerate and had been just routine follow up for symptoms with next appointment next week * She appears likely a candidate at least for palliative care -- wanting to hold off for now (4) HTN (hypertension): * Continue metoprolol tartrate -> consider switch to succinate * BP stable at 120/75 (5) Ischemic cardiomyopathy: * Continue usual home medication regimen with metoprolol tartrate 75mg BID, ISMN, ASA 81mg, ranexa 60mg HS, simvastatin 40mg HS * No chest pain. (6) COPD (chronic obstructive pulmonary disease): * breathing well at the moment. Continue Mucinex and benzonatate as needed * no issues at this time. * 94% on room air (7) Sjogren's disease: * Continue low dose prednisone and cevimeline. * Symptoms at baseline. May need stress dose steroids if she becomes hypotensive but will hold off for now (8) Severe protein-calorie malnutrition: * as stated above, she has a poor appetite -- improved * nutritional supp (9) Underweight: samantha sethi from a nutrition consult -- ordered Her BMI is 17. Though she reports not losing much weight, she appears very brittle. (10) Fever: As above, repeat blood cultures, UA, chest x-ray, Lyme, anaplasmosis, and will add on a repeat Covid C. difficile is negative yesterday and only had 2 loose stools Does have port in place Blood cultures from admission are negative but were drawn after antibiotics were started UTI since admission has been adequately treated and is most likely not from this organism Could also consider DVT although no signs and symptoms of this other than fever (11) Anemia: Microcytic Anemia * MCV 79.3 -- hx microcytic anemia but prior MCV >80. h/h 9.4/10.9 but was also given IVF. * Will add fecal occult -- + and GI consulted as above * Continue PPI as above but increased to BID * Prior iron, 17, trans % sat low 6, ferritin 498, transferrin 213 and received IV Venofer x 1 on 03/12 and recommended continued supplementation at discharge but is not on medications for this at this time * Studies added this admission : * Iron 19, Transferrin 195, Trans % sat 7 --> LOW. * TIBC 250 wnl, ferritin 103 wnl. * --> Ferrous sulfate PO BID (would hold off on IV Venofer until Bcx negative for at least 48 hours). Initially ordered this morning as bcx NGTD however discontinued/stopped order given elevated temp as above * --> could have Venofer infusions with Margarita Smith outpatient if needed/unable to tolerate PO Continue to monitor blood counts (12) Glaucoma: Glaucoma: * S/P surgery * on prednisolone eye drops. * ofloxacin continued * BID to L eye, QID to R eye -- discussed with nursing and resumed after holding this morning for confusion with ordered * follow up later this week planned on Thursday * --> will need rescheduled as patient now staying (13) Diarrhea: Diarrhea * -- reported, improved * will check c.diff -- NEGATIVE * Imodium prn if negative * +Fecal occult * GI consulted -- recs stopping ASA, not candidate for scope * Monitor blood counts (14) GERD (gastroesophageal reflux disease): GERD * Continue protonix 40mg daily (15) Immune deficiency disorder: * resume home meds -- Hizentra injections as an outpatient * is also on chronic prednisone daily - no s/sx adrenal crisis at this time but consider need for stress dose steroids if becomes hypotensive or symptomatic DVT Prophylaxis * Heparin SQ while inpatient Dispo: continued inpatient stay, changed to full admission Admission and Anticipated Discharge Date Admission Date: August 14, 2020 Supervising Physician Co-Signing Physician Notes PA Supervision Note: I did not personally see or examine the patient today, but I verified all abraham points of CHARLES Alexis's assessment and plan with the following exceptions/additions: none Subjective Patient seen this morning. Feeling great. Weakness improved. Eating/drinking without difficulty. No further fever, chills, chest pain, shortness of breath, abdominal discomfort or dysuria. Diarrhea has slowed. Hopeful for d/c today. Later --> Temp elevated to 38.1C and discharge cancelled. Repeating blood cultures. Concerns for possible port-infection as no other s/sx of infection. Could have worsening mass/post-obstructive process given lung ca and enlarged mass but not on admission per discussion with pulm on imaging. Review of Systems Review of Systems: All systems reviewed & are unremarkable except as noted in HPI & below Physical Exam Physical Exam: Constitutional: well developed and + frail appearing; + not well nourished and no acute distress Eyes: + anicteric sclerae; normal pupil size ENMT: Mouth: oral mucous membranes slightly moist Respiratory: Auscultation: no respiratory distress or cough noted, no accessory muscle use. not tachypneic. 90% on RA. + crackles bibasilar (improved), bronchial breath sounds. No wheezes/rhonchi appreciated Chest: L port present Cardiovascular: RRR, no murmur, no edema Gastrointestinal (Abdomen): normal bowel sounds, soft, nontender, no hepatosplenomegaly Musculoskeletal: no cyanosis or clubbing, extremities motor strength 5/5 Neurologic: moves all extremities and awake; not confused Psychiatric: A+Ox3, euthymic affect Results & Data Results & Data ([facility]) Vital Signs (Past 12 Hours) Vital Signs Temp Pulse Resp BP BP Pulse Ox 08/16/20 11:47 37.9 C H 08/16/20 11:43 38.1 C H 82 14 120/75 94 08/16/20 10:16 137/73 08/16/20 07:57 71 173/90 H 08/16/20 07:34 36.8 C 84 17 184/88 H 99 08/15/20 22:18 37.2 C 71 18 132/66 94 08/15/20 20:21 79 125/85 08/15/20 14:32 36.5 C 75 16 124/67 93 Intake and Output 08/15/20 08/16/20 08/16/20 22:59 06:59 14:59 Other: # Unmeasured Voids 1 1 1 Laboratory Results 08/16/20 08/16/20 08/15/20 Range/Units 05:28 05:28 17:54 WBC 8.21 (4.8-10.8) K/uL RBC 3.58 L (4.2-5.4) M/uL Hgb 9.1 L (12.0-16.0) g/dL Hct 28.5 L (37-47) % MCV 79.6 L (80-100) fL MCH 25.4 (25-34) pg MCHC 31.9 L (32-36) g/dL RDW Std Deviation 51.3 H (36.4-46.3) fL RDW Coeff of Marlene 17.6 H (11.5-14.5) % Plt Count 114 L (130-400) K/uL MPV 9.5 (7.4-10.4) fL Immature Gran % (Auto) 0.2 % Neut % (Auto) 72.7 % Lymph % (Auto) 16.3 % Mellette % (Auto) 9.6 % Eos % (Auto) 1.1 % Baso % (Auto) 0.1 % Neut # (Auto) 5.96 (1.4-6.5) K/uL Lymph # (Auto) 1.34 (1.2-3.4) K/uL Mellette # (Auto) 0.79 H (0.11-0.59) K/uL Eos # (Auto) 0.09 (0-0.5) K/uL Baso # (Auto) 0.01 (0-0.2) K/uL Immature Gran # (Auto) 0.02 (0.00-0.02) K/uL PT 10.3 (9.0-12.0) Seconds INR 1.0 (0.9-1.1) Sodium 136 (136-145) mmol/L Potassium 5.0 D (3.5-5.1) mmol/L Chloride 110 H (98-107) mmol/L Carbon Dioxide 22 (21-32) mmol/L Anion Gap 4.0 (3-11) BUN 32 H (7-18) mg/dl Creatinine 0.77 (0.6-1.2) mg/dl Est Cr Clr Drug Dosing 36.9 ml/min Est GFR ( Amer) 86.9 Est GFR (Non-Af Amer) 75.0 BUN/Creatinine Ratio 41.8 H (10-20) Glucose 86 (70-99) mg/dl Calcium 7.9 L (8.5-10.1) mg/dl Magnesium 2.3 (1.8-2.4) mg/dl Total Bilirubin 0.6 (0.2-1) mg/dl AST 29 (15-37) U/L ALT 24 (12-78) U/L Alkaline Phosphatase 109 (45-117) U/L Total Protein 6.2 L (6.4-8.2) gm/dl Albumin 1.9 L (3.4-5.0) gm/dl Globulin 4.3 H (2.5-4.0) gm/dl Albumin/Globulin Ratio 0.4 L (0.9-2) Stool Occult Bld Scrn (Negative) 08/15/20 Range/Units 08:40 WBC (4.8-10.8) K/uL RBC (4.2-5.4) M/uL Hgb (12.0-16.0) g/dL Hct (37-47) % MCV (80-100) fL MCH (25-34) pg MCHC (32-36) g/dL RDW Std Deviation (36.4-46.3) fL RDW Coeff of Marlene (11.5-14.5) % Plt Count (130-400) K/uL MPV (7.4-10.4) fL Immature Gran % (Auto) % Neut % (Auto) % Lymph % (Auto) % Mellette % (Auto) % Eos % (Auto) % Baso % (Auto) % Neut # (Auto) (1.4-6.5) K/uL Lymph # (Auto) (1.2-3.4) K/uL Mellette # (Auto) (0.11-0.59) K/uL Eos # (Auto) (0-0.5) K/uL Baso # (Auto) (0-0.2) K/uL Immature Gran # (Auto) (0.00-0.02) K/uL PT (9.0-12.0) Seconds INR (0.9-1.1) Sodium (136-145) mmol/L Potassium (3.5-5.1) mmol/L Chloride (98-107) mmol/L Carbon Dioxide (21-32) mmol/L Anion Gap (3-11) BUN (7-18) mg/dl Creatinine (0.6-1.2) mg/dl Est Cr Clr Drug Dosing ml/min Est GFR ( Amer) Est GFR (Non-Af Amer) BUN/Creatinine Ratio (10-20) Glucose (70-99) mg/dl Calcium (8.5-10.1) mg/dl Magnesium (1.8-2.4) mg/dl Total Bilirubin (0.2-1) mg/dl AST (15-37) U/L ALT (12-78) U/L Alkaline Phosphatase (45-117) U/L Total Protein (6.4-8.2) gm/dl Albumin (3.4-5.0) gm/dl Globulin (2.5-4.0) gm/dl Albumin/Globulin Ratio (0.9-2) Stool Occult Bld Scrn Positive A (Negative) PG Care Time/CCT Total # of Minutes Spent Total Time Spent with Patient: Total time spent is greater than 50% in coordination of care (as documented) at patient's floor/unit and/or counseling patient: Coding Level of Care Code 03557 Subseq Hosp Care Lvl 3 Diagnoses Acute UTI N39.0 Gram negative sepsis A41.50 Non-small cell lung cancer (NSCLC) C34.91 Laterality: right HTN (hypertension) I10 Ischemic cardiomyopathy I25.5 COPD (chronic obstructive pulmonary disease) J44.0 COPD type: COPD with acute lower respiratory infection Sjogren's disease M35.00 Severe protein-calorie malnutrition E43 Underweight R63.6 Fever R50.9 Anemia D64.9 Anemia type: unspecified type Glaucoma H40.9 Diarrhea R19.7 GERD (gastroesophageal reflux disease) K21.9 Immune deficiency disorder D84.9 (1) Non-small cell lung cancer (NSCLC) Laterality: right Qualified Code(s): C34.91 - Malignant neoplasm of unspecified part of right bronchus or lung (2) COPD (chronic obstructive pulmonary disease) COPD type: COPD with acute lower respiratory infection Qualified Code(s): J44.0 - Chronic obstructive pulmonary disease with acute lower respiratory infection (3) Anemia Anemia type: unspecified type Qualified Code(s): D64.9 - Anemia, unspecified
--- NOTE | 2020-08-16 10:21 | Discharge Summary ---
Date of Service August 16, 2020 Admission HPI Per Admitting Provider Naila Vega is a 75-year-old female with metastatic non-small cell lung cancer, Sjogren's, history of large B cell non-Hodgkin's lymphoma, history of ANTONIETTA, and bronchiectasis who presents to the ER with generalized weakness for past 5 days. She is currently not undergoing any chemotherapy due to decreased performance status. She denies any change in her chronic cough. No loss of taste or smell, diarrhea, abdominal pain, fever, chills, shortness of breath or known COVID-19 exposure. She denies any chest pain, orthopnea, PND, claudication, presyncope or syncope. In the ER, she was found to have a possible UTI. Antibiotics were given and admission was called. The patient reports she recently have glaucoma surgery last week and she has not recovered. Her states she has had a poor appetite, but she has not lost any more weight in the past few months. She understands her poor prognosis but states she does not feel it is time for a palliative care consult. She is not very active at home, and only ambulats from her room to the living room. Her home is two [facility] but they have a chair lift installed. She has been vaccinated with the COVID vaccine (both doses) over 4 weeks ago.. Discharge Data Allergies Allergy/AdvReac Type Severity Reaction Status Date / Time No Known Allergies Allergy Verified 08/13/20 13:05 Consultations 08/13/20 13:40 ED Decision to Admit Stat 08/15/20 11:09 Consult Gastroenterology Routine Ordered Studies 08/13/20 12:21 CT angio chest PE protocol Stat CT head/brain wo con Stat Hospital Course (1) Acute UTI: * Admitted with generalized weakness for the past 5 days -- could also be secondary to progressive small cell lung ca as well (AND ANEMIA) * Has not had any chemotherapy since last October as discussed with Margarita Smith from hematology -- She did not believe that continued treatments would be tolerable by patient and has been treating her symptoms alone with the understanding that the patient does note that this is a progressive disease but is not interested in palliative consultation at this time. * She was given a dose of ceftriaxone in the emergency room * CTA negative for PE but does show significant increase in size of the right upper lobe cancer since CT of May 09, 2020. A portion of this could reflect postobstructive pneumonia however the findings suggest significant disease progression with increase in numerous pulmonary metastases and suspected mediastinal invasion. * Discussed CAT scan findings with Dr. Galicia and he did not feel that this was a postobstructive pneumonia as was previously the case last year during admission * Temperature up to 39.2 C evening 08/13 and low grade temps today * --> Incentive spirometer to promote pulmonary toilet although no shortness of breath or change in chronic cough * BCx pending given temp, especially given her port for hx small cell lung ca -- follow (although did get one dose Ceftriaxone in ER) -- pending. NGTD * Urine culture with gram-negative bacilli-->Klebsiella--> plans for switch to Keflex QID tomorrow for 5 day course * started on cefepime 08/14, continued (day 2 of therapy) * MRSA nasal NEGATIVE * WBC wnl. Temp as above -- currently 37.4C * PT/OT evals pending -- patient said she was seen this AM and did well * Continue to monitor AM labs (2) Non-small cell lung cancer (NSCLC): * hx of, no longer getting chemo. also with large B cell Hodgkin * Discussed with oncology -- no more chemo as patient not able to tolerate and had been just routine follow up for symptoms with next appointment next week * She appears likely a candidate at least for palliative care -- wanting to hold off for now (3) HTN (hypertension): * Continue metoprolol tartrate -> consider switch to succinate * BP stable at 167/72 (4) Ischemic cardiomyopathy: * Continue usual home medication regimen with metoprolol tartrate 75mg BID, ISMN, ASA 81mg, ranexa 60mg HS, simvastatin 40mg HS * No chest pain. (5) COPD (chronic obstructive pulmonary disease): * breathing well at the moment. Continue Mucinex and benzonatate as needed * no issues at this time. * 90% on room air (6) Sjogren's disease: * Continue low dose prednisone and cevimeline. * Symptoms at baseline. May need stress dose steroids if she becomes hypotensive but will hold off for now (7) Severe protein-calorie malnutrition: * as stated above, she has a poor appetite -- improved * nutritional supp (8) Immune deficiency disorder: * resume home meds -- Hizentra injections as an outpatient * is also on chronic prednisone daily - no s/sx adrenal crisis at this time but consider need for stress dose steroids if becomes hypotensive or symptomatic Glaucoma: * S/P surgery * on prednisolone eye drops. * ofloxacin continued * BID to L eye, QID to R eye -- discussed with nursing and resumed after holding this morning for confusion with ordered * follow up later this week planned on Thursday Diarrhea * -- reported, improved * will check c.diff -- NEGATIVE * Imodium prn if negative * +Fecal occult --> Will consult GI GERD * Continue protonix 40mg daily Microcytic Anemia * MCV 79.3 -- hx microcytic anemia but prior MCV >80. h/h 9.4/10.9 but was also given IVF. * Will add fecal occult -- + and GI consulted as above * Continue PPI as above but increased to BID * Prior iron, 17, trans % sat low 6, ferritin 498, transferrin 213 and received IV Venofer x 1 on 03/12 and recommended continued supplementation at discharge but is not on medications for this at this time * Studies added this admission : * Iron 19, Transferrin 195, Trans % sat 7 --> LOW. * TIBC 250 wnl, ferritin 103 wnl. * --> Ferrous sulfate PO BID (would hold off on IV Venofer until Bcx negative for at least 48 hours) * --> could have Venofer infusions with Margarita Smith outpatient if needed/unable to tolerate PO hgb improved to 9.6/29.2 -- follow CBC in AM DVT Prophylaxis * Heparin SQ while inpatient * ?continued prophylaxis in active ca patient Dispo: continued inpatient stay, changed to full admission (9) Underweight: samantha sethi from a nutrition consult -- ordered Her BMI is 17. Though she reports not losing much weight, she appears very brittle. Discharge Plan Discharge Items Reason For Visit: WEAKNESS Follow-up/Referrals: Evin Villalpando MD [Primary Care Provider] - Luis Manuel Andino [Physician] - 08/31/20 9:20 am (VISIT WILL BE AT [facility] ) Medications and DC Order Prescriptions: No Action prednisone 1 mg tablet,delayed release (DR/EC) 3 mg PO QAM RF: 0 Hizentra 4 gram/20 mL (20 %) solution 8 gm SQ WEEKLY RF: 0 Calcium 600 + D(3) 600 mg calcium- 200 unit Capsule 1 cap PO BIDM RF: 0 pantoprazole 40 mg tablet,delayed release (DR/EC) 40 mg PO QAM RF: 0 prochlorperazine maleate [Compazine] 10 mg Tablet 10 mg PO Q8H PRN (Reason: Nausea) RF: 0 aspirin [Aspirin Low Dose] 81 mg Tablet,Delayed Release (Dr/Ec) 81 mg PO QAM RF: 0 benzonatate 100 mg capsule 100 mg PO Q6H PRN (Reason: Cough) RF: 0 metoprolol tartrate 50 mg tablet 75 mg PO AMHS RF: 0 [id number]-huggxobl-nwszdh Tablet 1 tab PO DAILY RF: 0 nitroglycerin [Nitrostat] 0.4 mg tablet, sublingual 0.4 mg Sublingual DIRECTED PRN (Reason: Chest Pain) RF: 0 epinephrine [EpiPen] 0.3 mg/0.3 mL auto-injector 0.3 mg IM Q3H PRN (Reason: Infusion Reaction) RF: 0 albuterol sulfate 90 mcg/actuation HFA aerosol inhaler 2 puffs INH AMPM RF: 0 Plexus-Probio 5 1 dose PO DAILY RF: 0 potassium chloride 10 mEq Capsule, Extended Release 10 meq PO TIDM RF: 0 simvastatin 40 mg Tablet 40 mg PO HS RF: 0 isosorbide mononitrate 60 mg Tablet Extended Release 24 Hr 60 mg PO QAM RF: 0 cevimeline 30 mg Capsule 30 mg PO TIDM RF: 0 raloxifene 60 mg Tablet 60 mg PO QPM RF: 0 magnesium 250 mg Tablet 500 mg PO QAM RF: 0 ondansetron 4 mg Tablet,Disintegrating 8 mg PO Q8H PRN (Reason: Nausea) RF: 0 ranolazine [Ranexa] 500 mg Tablet Extended Release 12 Hr 500 mg PO AMHS RF: 0 ofloxacin 0.3 % drops 1 drp OPL QID RF: 0 prednisolone acetate 1 % drops,suspension 1 drp OPL QID RF: 0 guaifenesin [Mucinex] 600 mg tablet extended release 12hr 600 mg PO Q12 PRN (Reason: Congestion) RF: 0 Admission Data Admit Date/Time: 08/14/20 16:25 Attending Provider: Deborah Lynch Admit Provider: Steven Byrd Primary Care Provider: Evin Villalpando Other Providers: Steven Byrd ; Luis Manuel Andino Coding Diagnoses Acute UTI N39.0 Non-small cell lung cancer (NSCLC) C34.91 Laterality: right HTN (hypertension) I10 Ischemic cardiomyopathy I25.5 COPD (chronic obstructive pulmonary disease) J44.0 COPD type: COPD with acute lower respiratory infection Sjogren's disease M35.00 Severe protein-calorie malnutrition E43 Immune deficiency disorder D84.9 Underweight R63.6
[2020-08-16] MEDS: ACETAMINOPHEN 325 MG TAB PO PRN ×2 (11:51→18:07)
[2020-08-16] MEDS ORDERED: IRON SUCROSE 200 MG in 0.9 % SODIUM CHLORIDE 100 ML IV ONE (12:00)
[2020-08-16 13:10] LABS: Basophils # (auto) 0.01 K/uL (0-0.2); Basophils % (auto) 0.1 %; Eosinophils # (auto) 0.02 K/uL (0-0.5); Eosinophils % (auto) 0.1 %; Hematocrit (blood only) 31.3 % (37-47); Immature Granulocytes # (auto) 0.05 K/uL (0.00-0.02); Immature Granulocytes % (auto) 0.4 %; Lymphocytes # (auto) 1.59 K/uL (1.2-3.4); Lymphocytes % (auto) 11.7 %; Mean Corpuscular Hemoglobin 25.4 pg (25-34); Mean Corpuscular Hgb Conc 31.9 g/dL (32-36); Mean Corpuscular Volume 79.6 fL (80-100); Monocytes # (auto) 0.84 K/uL (0.11-0.59); Monocytes % (auto) 6.2 %; Neutrophils % (auto) 81.5 %; Platelet Count 144 K/uL (130-400); RDW Coefficient of Variation 17.4 % (11.5-14.5); RDW Standard Deviation 50.9 fL (36.4-46.3); Red Blood Count 3.93 M/uL (4.2-5.4); White Blood Count 13.61 K/uL (4.8-10.8)
[2020-08-16 14:42] LABS: ALC (manual) 1.31 K/uL (1.2-3.4); Anisocytosis Present; Basophils # (manual) 0.12 K/uL (0-0.2); Basophils % (manual) 0.9 %; Lymphocytes # (manual) 1.31 K/uL (1.2-3.4); Lymphocytes % (manual) 9.6 %; Monocytes # (manual) 0.48 K/uL (0.11-0.59); Monocytes % (manual) 3.5 %; Poikilocytosis Present
[2020-08-16 16:18] LABS: Lyme Ab IgM w/WB Rflx Negative (Negative)
[2020-08-16] MEDS: ONDANSETRON 4 MG OD TAB PO PRN (17:19)
[2020-08-16] MEDS: RALOXIFENE HCL 60 MG TAB PO SCH (18:05)
[2020-08-16 18:42] LABS: Lyme Ab IgG w/WB Rflx Negative (Negative)
[2020-08-16] MEDS ORDERED: CEFEPIME 2,000 MG in SYRINGE 0 ML IV ONE (19:15)
[2020-08-16] MEDS: diphenhydrAMINE 50 MG/ML VIAL IV PRN (20:10)
[2020-08-16 20:29] LABS: Appearance Urine Clear (Clear); Bilirubin Urine Negative (Negative); Blood Urine Negative (Negative); Color Urine Dark Yellow; Glucose Urine UA Negative (Negative); Ketones Urine Negative (Negative); Leukocyte Esterase Urine Negative (Negative); Nitrite Urine Negative (Negative); Protein Urine Negative (Negative); Specific Gravity Urine 1.017 (1.000-1.030); Urobilinogen Urine Negative (Negative)
[2020-08-16] MEDS: SIMVASTATIN 40 MG TAB PO SCH (20:48)
[2020-08-16] MEDS ORDERED: CEFEPIME 2,000 MG in SYRINGE 0 ML IV SCH (21:00)
--- NOTE | 2020-08-16 21:14 | XRay Report ---
SINGLE VIEW CHEST CLINICAL HISTORY: Fever. Right upper lobe mass. FINDINGS: An AP, portable, upright chest radiograph is compared to chest x-ray and chest CT dated 07/26. The examination is degraded by portable technique and patient rotation. A left subclavian mac tral venous infusion port is unchanged in position. The patient is status post midline sternotomy. Th e cardiomediastinal silhouette is unremarkable noting atherosclerotic calcification of the thoracic a merline. The pulmonary vasculature is noncongested. Emphysema, chronic interstitial thickening, and diff use nodularity is similar to previous. Again seen is large right upper lobe mass lesion with apical c onsolidation. The left lung appears clear noting basilar scarring/atelectasis. No large pleural effus ion or pneumothorax is seen. The skeletal structures are osteopenic. The bony thorax is grossly intac t. Cholecystectomy clips are seen in the right upper quadrant. IMPRESSION: 1. Emphysema and chronic parenchymal changes are similar to previous. 2. A right upper lobe mass with right apical consolidation has not significantly changed from 08/14/19 21. Electronically signed by: Han Bolanos M.D. 08/16/2020 9:12 PM
[2020-08-16 23:51] LABS: Influenza A virus by PCR Negative (Neg); Influenza B virus by PCR Negative (Neg); RSV by PCR Negative (Neg); SARS CoV2 RNA(COVID-19) InHosp NEGATIVE (Negative)
[2020-08-17 05:49] LABS: Basophils # (auto) 0.01 K/uL (0-0.2); Basophils % (auto) 0.1 %; Eosinophils % (auto) 1.2 %; Hematocrit (blood only) 28.6 % (37-47); Hemoglobin 9.2 g/dL (12.0-16.0); Immature Granulocytes # (auto) 0.02 K/uL (0.00-0.02); Immature Granulocytes % (auto) 0.2 %; Lymphocytes # (auto) 1.44 K/uL (1.2-3.4); Lymphocytes % (auto) 17.8 %; Mean Corpuscular Hemoglobin 25.5 pg (25-34); Mean Corpuscular Hgb Conc 32.2 g/dL (32-36); Mean Corpuscular Volume 79.2 fL (80-100); Monocytes # (auto) 0.71 K/uL (0.11-0.59); Monocytes % (auto) 8.8 %; Neutrophils # (auto) 5.82 K/uL (1.4-6.5); Neutrophils % (auto) 71.9 %; Platelet Count 134 K/uL (130-400); RDW Coefficient of Variation 17.5 % (11.5-14.5); RDW Standard Deviation 50.8 fL (36.4-46.3); Red Blood Count 3.61 M/uL (4.2-5.4)
[2020-08-17 06:20] LABS: Albumin Level 1.9 gm/dl (3.4-5.0); Calcium 8.1 mg/dl (8.5-10.1); Creatinine Clr Calc Pharmacy 37.4 ml/min; Est GFR (African American) 88.3; Est GFR (Non-African American) 76.2; Magnesium 2.3 mg/dl (1.8-2.4)
[2020-08-17 06:22] LABS: Albumin Globulin Ratio 0.4 (0.9-2); Bilirubin,Total 0.6 mg/dl (0.2-1); Globulin 4.5 gm/dl (2.5-4.0); Total Protein 6.4 gm/dl (6.4-8.2)
[2020-08-17] MEDS: diphenhydrAMINE 50 MG/ML VIAL IV PRN (06:30)
[2020-08-17] MEDS: CEFEPIME 2,000 MG in SYRINGE 0 ML IV SCH ×2 (06:32→18:37)
[2020-08-17] MEDS ORDERED: VANCOMYCIN CONSULT ACTIVE PRN ×2 (07:40)
[2020-08-17] MEDS ORDERED: VANCOMYCIN HCL 1,000 MG in SODIUM CHLORIDE 0.9% 250 ML IV SCH (07:45)
[2020-08-17] MEDS: CEROVITE ADV FORMULA TAB PO SCH ×2 (08:35→11:19)
[2020-08-17] MEDS: predniSONE 1 MG TAB PO SCH ×2 (08:35→11:19)
[2020-08-17] MEDS: RANOLAZINE 500 MG ER TAB PO SCH ×3 (08:35→20:23)
[2020-08-17] MEDS: ISOSORBIDE MONO EXTENDED REL 60 MG TABCR PO SCH ×2 (08:35→11:18)
[2020-08-17] MEDS: MAGNESIUM OXIDE 400 MG TAB PO SCH ×2 (08:35→11:19)
[2020-08-17] MEDS: METOPROLOL TARTRATE 25 MG TAB PO SCH ×3 (08:35→17:30)
[2020-08-17] MEDS: PANTOprazole 40 MG TAB PO SCH ×3 (08:35→20:23)
[2020-08-17] MEDS: CALCIUM 600MG + VIT D 400 IU TAB PO SCH ×3 (08:35→17:35)
[2020-08-17] MEDS: POTASSIUM CHLORIDE 10 MEQ TABCR PO SCH ×4 (08:35→17:37)
[2020-08-17] MEDS: CEVIMELINE HCL PO SCH ×4 (08:36→17:36)
[2020-08-17] MEDS: HEPARIN SOD 5,000 UNIT/0.5 ML VIAL SQ SCH ×2 (08:36→20:24)
[2020-08-17] MEDS ORDERED: VANCOMYCIN HCL 1,000 MG in SODIUM CHLORIDE 0.9% 250 ML IV ONE (09:00)
--- NOTE | 2020-08-17 09:09 | Hospitalist Progress Note ---
Date of Service August 17, 2020 Assessment & Plan (1) Encephalopathy: * Patient initially admitted on 08/13/2020 with 5 days of weakness and worsening confusion by her , admitted with sepsis secondary to gram negative bacilli UTI, Klebsiella * She was found to have urinary tract infection -- 1x dose Ceftriaxone in ER * Continued on Cefepime given fever 39.2C on 08/13 however blood cultures were not drawn until after this was started and she had a repeat temperature * Urine cx Klebsiella and was treated with cefepime empirically given her history and possible postobstructive pneumonia with temperature up to 39.2 C on 08/13 * She had been feeling great after treatment with cefepime and resolution of her urinary symptoms and was planning on going home on oral antibiotics on 08/16 before she spiked a fever of 38.1 degrees afternoon of 08/16 * Repeat blood cultures on 08/16 -- all continue to be negative to date --> follow * RSV, influenza, Covid 19 have been negative x2 * Lyme, anaplasmosis also negative * She does have an a port for her history of non-small cell lung cancer * CTA negative for PE but did show a significant increase in the size of a right upper lobe cancer since April 2020 was initially felt to be possible postobstructive pneumonia however I did discuss this with Dr. Galicia on admission and he did not feel that this was a postobstructive pneumonia but rather progression of her cancer. * MRSA swab nasal was negative and she should have coverage for strep and Pseud omonas with her cefepime. * Vancomycin was added this morning given continued fevers * Sputum culture if able to produce as well as AFB given her history of ANTONIETTA Of note she had been giving Benadryl IV 25 mg while in the hospital due to reported reactions with antibiotics in the past and she had initially tolerated this however she was given 25 mg IV last evening 08/16 and an additional 25 mg this morning at 630 prior to her increased confusion and this has been discontinued * Stroke alert was called * NIH stroke scale informed but has been very inconsistent in scoring, anywhere from 5-23 at times * Discussed with [facility] Dr. Cervantes do not feel that this sounded like a an acute stroke would not recommend TPA at this time unless she had evidence of an M1 branch occlusion on CT angiography which is pending at this time. She did discuss patient's history of non-small cell lung cancer with progressive disease and we decided to do an MRI of the brain with and without contrast to look for metastasis brain mass causing this acute confusion * Also discussed the possibility of underlying seizure activity but she recommended that we hold off giving any kind of loading dose medication unless she was observed to have some tonic-clonic seizure activity noted * Neurology was consulted, Dr. Dowd -- appreciate assistance * ammonia was checked and is actually low * repeat CAT scan of the brain was negative for acute CVA * Brain MRI with and without contrast did not show any acute intracranial findings, intracranial mass, acute or subacute infarction * CT angiography of the head and neck has been ordered but has not been completed at this time --Per discussion with CT department this afternoon we had initially placed her directly to schedule for 10am shortly after the order was placed however patient was never brought down. Nurse on med telemetry states patient was brought to the floor around 10 up from imaging and I did see the note however no one called to follow-up on this. Discussed with nursing to send the patient down as soon as possible for evaluation and continued fluctuations in her mental status * Venous Dopplers were completed of her bilateral lower extremities which were negative for DVT * Echocardiogram showed a normal the systolic function with moderate mitral annular calcification. No wall motion abnormalities. Right ventricle normal in size and function. * --It does show that evaluation for PFO was inconclusive I will need further discussion with Dr. Dee -- per conversation, not a concern * lipid panel, A1c added to labs. * NIH stroke scale * PT/OT evaluation * Speech therapy was consulted as patient failed her dysphagia screening and was made n.p.o. however per discussion with speech-language pathologist patient was placed back on a pured diet which should be obtained until improvements are made * Supportive care being given at this time and will continue to monitor (2) Acute UTI: Admitted with generalized weakness for the past 5 days -- could also be secondary to progressive small cell lung ca as well (AND ANEMIA) Completed a course of IV antibiotics as above for Klebsiella UTI and repeat urine without evidence of continued infection (3) Gram negative sepsis: As above (4) Non-small cell lung cancer (NSCLC): * hx of, no longer getting chemo. also with large B cell Hodgkin * Discussed with oncology -- no more chemo as patient not able to tolerate and had been just routine follow up for symptoms with next appointment next week * She appears likely a candidate at least for palliative care -- wanting to hold off for now (5) HTN (hypertension): * Continue metoprolol tartrate -> consider switch to succinate * BP elevated to 163/86 however she did not get her morning medications we will ask nursing to administer her metoprolol dose for this evening or early * Hydralazine IV as needed (6) Ischemic cardiomyopathy: * Continue usual home medication regimen with metoprolol tartrate 75mg BID, ISMN, ASA 81mg, ranexa 60mg HS, simvastatin 40mg HS * No chest pain. Troponin < 0.015 (7) COPD (chronic obstructive pulmonary disease): * breathing well at the moment. * Continue Mucinex and benzonatate as needed * no issues at this time. * 97% on room air (8) Sjogren's disease: * Continue low dose prednisone and cevimeline. * Symptoms at baseline. * May need stress dose steroids if she becomes hypotensive but will hold off for now (9) Severe protein-calorie malnutrition: * as stated above, she has a poor appetite * nutritional supp (10) Underweight: * may benefit from a nutrition consult -- ordered * Her BMI is 17 * Though she reports not losing much weight, she appears very brittle (11) Fever: * As above, repeat blood cultures, UA, chest x-ray, Lyme, anaplasmosis, and will add on a repeat Covid * C. difficile is negative yesterday and only had 2 loose stools. Stool cultures added * Does have port in place * Blood cultures from admission are negative but were drawn after antibiotics were started * UTI since admission has been adequately treated and is most likely not from this organism. Repeat UA without evidence of infection * Could also consider DVT although no signs and symptoms of this other than fever --ultrasound of bilateral lower extremities negative for DVT (12) Anemia: * Microcytic * MCV 79.3 -- hx microcytic anemia but prior MCV >80. h/h 9.4/10.9 but was also given IVF. * Will add fecal occult -- + and GI consulted as above * Continue PPI as above but increased to BID * GI consulted and recommended stopping her aspirin which was done day before * Prior iron, 17, trans % sat low 6, ferritin 498, transferrin 213 and received IV Venofer x 1 on 03/12 and recommended continued supplementation at discharge but is not on medications for this at this time * Studies added this admission : Iron 19, Transferrin 195, Trans % sat 7 --> LOW. TIBC 250 wnl, ferritin 103 wnl. * --> Ferrous sulfate PO BID (would hold off on IV Venofer until Bcx negative for at least 48 hours). Initially ordered morning 08/17 as bcx NGTD however discontinued/stopped order given elevated temp as above --> could have Venofer infusions with [facility] outpatient if needed/unable to tolerate PO unless bacteremic Continue to monitor blood counts (13) Glaucoma: * S/P surgery * on prednisolone eye drops. * ofloxacin continued * --> will need rescheduled f/u as patient now staying (14) Diarrhea: * -- reported, improved * will check c.diff -- NEGATIVE * Imodium prn * +Fecal occult * GI consulted -- recs stopping ASA, not candidate for scope * Monitor blood counts (15) GERD (gastroesophageal reflux disease): * Continue protonix 40mg daily but increase to twice daily as above (16) Immune deficiency disorder: * resume home meds -- Hizentra injections as an outpatient discussed with pharmacist Nicole and after discussion given patient has been administers this and is more familiar with the drug arrangements were made for him to bring this in this evening for her infusion and was able to stay with her during this time * is also on chronic prednisone daily - no s/sx adrenal crisis at this time but consider need for stress dose steroids if becomes hypotensive or symptomatic DVT Prophylaxis * Heparin SQ while inpatient Dispo: continued inpatient stay, transferred to [facility]-telemetry Admission and Anticipated Discharge Date Admission Date: August 14, 2020 Supervising Physician Co-Signing Physician Notes StartPA Supervision Note: I personally saw and examined the patient. I verified all abraham points and agree with CHARLES Alexis with the following exceptions and/or additions: S/O-patient seen after mental status change and stroke alert was called. She was awake and alert and intermittently followed commands but mostly stared straight ahead and was persistently rubbing her lips together and her jaw was tremoring. She did raise both arms straight up into the air but otherwise when she attempted to follow commands it seems she was not able to. When asked to t rack my finger with her eyes, she started to but then continue to stare straight ahead, she also attempted to open her mouth but could not. Vitals remained stable throughout the entire episode. My NIH stroke score was 17. However it did seem that at times she would speak out loud spontaneously with other providers. radiology and lab studies reviewed A/C-12-pbtd-old female here with UTI and febrile illness in the setting of metastatic lung cancer, now with acute onset of aphasia, tremor, and encephalopathy. Stroke work-up negative TSH normal, metabolic work-up seems negative Appreciate neurology consultation EEG with encephalopathy Possibly side effect from Benadryl-discontinued Vitals are stable Continue to follow, supportive care Subjective Patient seen multiple times today. Initially was notified by nursing between 7 and 8 AM that patient was initially cognitively with it last well-known at 7:15 AM however when she came back to give her pills at 8 AM she noticed the patient was not able to raise her eyebrows or follow midline commands and was. increasingly quiet compared to day prior. She now had worsening left lower extremity swelling and when reevaluated had incomplete ability to answer some questions but at times was clear without answers and able to wool scourer my hands but did show decreased strength in the right upper lower extremity.. She did note states that she was not feeling well but was unable to give much response however review of systems. She had been giving a dose of Benadryl last evening for reported issues with IV antibiotics and this was again repeated this morning. When asked questions it did appear the patient was attempting to answer but when asked if she knew what she wanted to say but was unable to find the words she shook her head yes. She did move extremities at times but was having abnormal movements of her jaw and fine tremor at rest which was not new. Stroke alert was called and patient was moved to the ICU temporarily for a possible telehealth however concurrent code in the emergency department prompt discussion over the phone with their neurologist on-call Dr. Cervantes who felt that this did not sound like a stroke but not highly recommend TPA in this patient but recommended that we obtain CT angiography as well as MRI with and without contrast given her history of lung cancer with metastasis and that she may be a candidate for thrombectomy if there was any signs of occlusion of the M1 branch. Stat CAT scan of the head was negative for acute stroke MRI of the brain was ordered and patient was transferred to telemetry for closer monitoring. Patient denied any other further fevers, chills, chest pain, difficulty breathing or shortness of breath, abdominal pain however was difficult to obtain review of systems given her cognitive status. Review of Systems Review of Systems: All systems reviewed & are unremarkable except as noted in HPI & below and Unobtainable due to cognitive status Physical Exam Physical Exam: Patient is a 75-year-old female chronically ill-appearing, frail appearing, was found sitting up in bed, no acute distress noted. Flat affect. At times was able to answer with one-word responses and at other times appeared to have difficulty with word finding. She was able to track with her eyes at times and appeared to have peripheral vision intact with normal visual day by confrontation, normal pupil size, anicteric sclera. EOM intact bilaterally, no nystagmus ENMT with slightly dry vacuous membranes, no tracheal deviation Respiratory: not tachypneic, +cough. Stable on room air. Bibasilar crackles as well as right upper posterior with bronchial breath sounds. No wheezing appreciated Chest with left port present, no erythema or drainage noted Cardiovascular: Heart rate 103 bpm, regular. No murmur apprecited. She did edema of her lower extremities 1+ right greater than left. Noted chronic venous stasis changes. No obvious lesions or drainage noted to skin Gastrointestinal: Positive bowel sounds in 4 quadrants, soft, nontender without hepatosplenomegaly appreciated Musculoskeletal/Neuro: She is awake and alert and states that she is in the hospital but does not answer any other orientation questions moves extremities at times, able to sit up in bed without assistance this afternoon however this morning was not able to follow commands. At times she was able to raise her hands above her head and at other times she ignored the question completely was unable to follow commands. Required repeated requests however she did seem to comprehend questions but was unable to provide answers at times. Initially with decreased wool scourer strength in her right upper extremity however this afternoon wool scourer strength was equal. Possible clonus left lower extremity ?2 chris ts Results & Data Results & Data ([facility]) Vital Signs (Past 12 Hours) Vital Signs Temp Pulse Resp BP BP Pulse Ox 08/17/20 08:30 93 H 146/85 H 08/17/20 07:41 37.2 C 96 H 16 178/93 H 90 08/16/20 22:32 36.7 C 74 18 133/66 96 Laboratory Results 08/17/20 08/17/20 08/16/20 Range/Units 05:18 05:18 22:58 WBC 8.10 (4.8-10.8) K/uL RBC 3.61 L (4.2-5.4) M/uL Hgb 9.2 L (12.0-16.0) g/dL Hct 28.6 L (37-47) % MCV 79.2 L (80-100) fL MCH 25.5 (25-34) pg MCHC 32.2 (32-36) g/dL RDW Std Deviation 50.8 H (36.4-46.3) fL RDW Coeff of Marlene 17.5 H (11.5-14.5) % Plt Count 134 (130-400) K/uL MPV 10.0 (7.4-10.4) fL Immature Gran % (Auto) 0.2 % Neut % (Auto) 71.9 % Lymph % (Auto) 17.8 % Dixon % (Auto) 8.8 % Eos % (Auto) 1.2 % Baso % (Auto) 0.1 % Neut # (Auto) 5.82 (1.4-6.5) K/uL Lymph # (Auto) 1.44 (1.2-3.4) K/uL Dixon # (Auto) 0.71 H (0.11-0.59) K/uL Eos # (Auto) 0.10 (0-0.5) K/uL Baso # (Auto) 0.01 (0-0.2) K/uL Immature Gran # (Auto) 0.02 (0.00-0.02) K/uL Neutrophils % (Manual) % Band Neutrophils % % Lymphocytes % (Manual) % Prolymphocyte % % Reactive Lymphs % (Man) % Monocytes % (Manual) % Basophils % (Manual) % Plasma Cell % (Manual) % Neutrophils # (Manual) (1.4-6.5) K/uL Total Absolute Neuts (1.4-6.5) K/uL Lymphocytes # (Manual) (1.2-3.4) K/uL Total Abs Lymphocytes (1.2-3.4) K/uL Monocytes # (Manual) (0.11-0.59) K/uL Basophils # (Manual) (0-0.2) K/uL Large Granular Lymphs % Poikilocytosis Anisocytosis Sodium 136 (136-145) mmol/L Potassium 5.0 (3.5-5.1) mmol/L Chloride 110 H (98-107) mmol/L Carbon Dioxide 22 (21-32) mmol/L Anion Gap 4.0 (3-11) BUN 30 H (7-18) mg/dl Creatinine 0.76 (0.6-1.2) mg/dl Est Cr Clr Drug Dosing 37.4 ml/min Est GFR ( Amer) 88.3 Est GFR (Non-Af Amer) 76.2 BUN/Creatinine Ratio 39.0 H (10-20) Glucose 92 (70-99) mg/dl Lactate (0.4-2.0) mmol/L Calcium 8.1 L (8.5-10.1) mg/dl Magnesium 2.3 (1.8-2.4) mg/dl Total Bilirubin 0.6 (0.2-1) mg/dl AST 28 (15-37) U/L ALT 23 (12-78) U/L Alkaline Phosphatase 116 (45-117) U/L Total Protein 6.4 (6.4-8.2) gm/dl Albumin 1.9 L (3.4-5.0) gm/dl Globulin 4.5 H (2.5-4.0) gm/dl Albumin/Globulin Ratio 0.4 L (0.9-2) Urine Color Urine Appearance (Clear) Urine pH (4.5-7.5) Ur Specific [place] (1.000-1.030) Urine Protein (Negative) Urine Glucose (UA) (Negative) Urine Ketones (Negative) Urine Blood (Negative) Urine Nitrite (Negative) Urine Bilirubin (Negative) Urine Urobilinogen (Negative) Ur Leukocyte Esterase (Negative) Anaplasma Smear Lyme Disease IgG Ab (Negative) Lyme Disease IgM Ab (Negative) COVID-19 Eval Order SARS-CoV-2 (PCR) NEGATIVE (Negative) Influenza Type A (PCR) Negative (Neg) Influenza Type B (PCR) Negative (Neg) RSV (RT-PCR) Negative (Neg) 08/16/20 08/16/20 08/16/20 Range/Units 22:58 19:35 12:56 WBC (4.8-10.8) K/uL RBC (4.2-5.4) M/uL Hgb (12.0-16.0) g/dL Hct (37-47) % MCV (80-100) fL MCH (25-34) pg MCHC (32-36) g/dL RDW Std Deviation (36.4-46.3) fL RDW Coeff of Marlene (11.5-14.5) % Plt Count (130-400) K/uL MPV (7.4-10.4) fL Immature Gran % (Auto) % Neut % (Auto) % Lymph % (Auto) % Dixon % (Auto) % Eos % (Auto) % Baso % (Auto) % Neut # (Auto) (1.4-6.5) K/uL Lymph # (Auto) (1.2-3.4) K/uL Dixon # (Auto) (0.11-0.59) K/uL Eos # (Auto) (0-0.5) K/uL Baso # (Auto) (0-0.2) K/uL Immature Gran # (Auto) (0.00-0.02) K/uL Neutrophils % (Manual) % Band Neutrophils % % Lymphocytes % (Manual) % Prolymphocyte % % Reactive Lymphs % (Man) % Monocytes % (Manual) % Basophils % (Manual) % Plasma Cell % (Manual) % Neutrophils # (Manual) (1.4-6.5) K/uL Total Absolute Neuts (1.4-6.5) K/uL Lymphocytes # (Manual) (1.2-3.4) K/uL Total Abs Lymphocytes (1.2-3.4) K/uL Monocytes # (Manual) (0.11-0.59) K/uL Basophils # (Manual) (0-0.2) K/uL Large Granular Lymphs % Poikilocytosis Anisocytosis Sodium (136-145) mmol/L Potassium (3.5-5.1) mmol/L Chloride (98-107) mmol/L Carbon Dioxide (21-32) mmol/L Anion Gap (3-11) BUN (7-18) mg/dl Creatinine (0.6-1.2) mg/dl Est Cr Clr Drug Dosing ml/min Est GFR ( Amer) Est GFR (Non-Af Amer) BUN/Creatinine Ratio (10-20) Glucose (70-99) mg/dl Lactate 1.5 (0.4-2.0) mmol/L Calcium (8.5-10.1) mg/dl Magnesium (1.8-2.4) mg/dl Total Bilirubin (0.2-1) mg/dl AST (15-37) U/L ALT (12-78) U/L Alkaline Phosphatase (45-117) U/L Total Protein (6.4-8.2) gm/dl Albumin (3.4-5.0) gm/dl Globulin (2.5-4.0) gm/dl Albumin/Globulin Ratio (0.9-2) Urine Color Dark Yellow Urine Appearance Clear (Clear) Urine pH 5.0 (4.5-7.5) Ur Specific [place] 1.017 (1.000-1.030) Urine Protein Negative (Negative) Urine Glucose (UA) Negative (Negative) Urine Ketones Negative (Negative) Urine Blood Negative (Negative) Urine Nitrite Negative (Negative) Urine Bilirubin Negative (Negative) Urine Urobilinogen Negative (Negative) Ur Leukocyte Esterase Negative (Negative) Anaplasma Smear Lyme Disease IgG Ab (Negative) Lyme Disease IgM Ab (Negative) COVID-19 Eval Order [facility]sv at [facility] SARS-CoV-2 (PCR) (Negative) Influenza Type A (PCR) (Neg) Influenza Type B (PCR) (Neg) RSV (RT-PCR) (Neg) 08/16/20 08/16/20 Range/Units 12:48 12:48 WBC 13.61 H (4.8-10.8) K/uL RBC 3.93 L (4.2-5.4) M/uL Hgb 10.0 L (12.0-16.0) g/dL Hct 31.3 L (37-47) % MCV 79.6 L (80-100) fL MCH 25.4 (25-34) pg MCHC 31.9 L (32-36) g/dL RDW Std Deviation 50.9 H (36.4-46.3) fL RDW Coeff of Marlene 17.4 H (11.5-14.5) % Plt Count 144 (130-400) K/uL MPV 10.0 (7.4-10.4) fL Immature Gran % (Auto) 0.4 % Neut % (Auto) 81.5 % Lymph % (Auto) 11.7 % Dixon % (Auto) 6.2 % Eos % (Auto) 0.1 % Baso % (Auto) 0.1 % Neut # (Auto) 11.10 H (1.4-6.5) K/uL Lymph # (Auto) 1.59 (1.2-3.4) K/uL Dixon # (Auto) 0.84 H (0.11-0.59) K/uL Eos # (Auto) 0.02 (0-0.5) K/uL Baso # (Auto) 0.01 (0-0.2) K/uL Immature Gran # (Auto) 0.05 H (0.00-0.02) K/uL Neutrophils % (Manual) 86.0 % Band Neutrophils % 0.0 % Lymphocytes % (Manual) 9.6 % Prolymphocyte % 0.0 % Reactive Lymphs % (Man) 0.0 % Monocytes % (Manual) 3.5 % Basophils % (Manual) 0.9 % Plasma Cell % (Manual) 0.0 % Neutrophils # (Manual) 11.70 H (1.4-6.5) K/uL Total Absolute Neuts 11.70 H (1.4-6.5) K/uL Lymphocytes # (Manual) 1.31 (1.2-3.4) K/uL Total Abs Lymphocytes 1.31 (1.2-3.4) K/uL Monocytes # (Manual) 0.48 (0.11-0.59) K/uL Basophils # (Manual) 0.12 (0-0.2) K/uL Large Granular Lymphs 0.0 % Poikilocytosis Present Anisocytosis Present Sodium (136-145) mmol/L Potassium (3.5-5.1) mmol/L Chloride (98-107) mmol/L Carbon Dioxide (21-32) mmol/L Anion Gap (3-11) BUN (7-18) mg/dl Creatinine (0.6-1.2) mg/dl Est Cr Clr Drug Dosing ml/min Est GFR ( Amer) Est GFR (Non-Af Amer) BUN/Creatinine Ratio (10-20) Glucose (70-99) mg/dl Lactate (0.4-2.0) mmol/L Calcium (8.5-10.1) mg/dl Magnesium (1.8-2.4) mg/dl Total Bilirubin (0.2-1) mg/dl AST (15-37) U/L ALT (12-78) U/L Alkaline Phosphatase (45-117) U/L Total Protein (6.4-8.2) gm/dl Albumin (3.4-5.0) gm/dl Globulin (2.5-4.0) gm/dl Albumin/Globulin Ratio (0.9-2) Urine Color Urine Appearance (Clear) Urine pH (4.5-7.5) Ur Specific [place] (1.000-1.030) Urine Protein (Negative) Urine Glucose (UA) (Negative) Urine Ketones (Negative) Urine Blood (Negative) Urine Nitrite (Negative) Urine Bilirubin (Negative) Urine Urobilinogen (Negative) Ur Leukocyte Esterase (Negative) Anaplasma Smear See Comment Lyme Disease IgG Ab Negative (Negative) Lyme Disease IgM Ab Negative (Negative) COVID-19 Eval Order SARS-CoV-2 (PCR) (Negative) Influenza Type A (PCR) (Neg) Influenza Type B (PCR) (Neg) RSV (RT-PCR) (Neg) PG Care Time/CCT Total # of Minutes Spent Total Time Spent with Patient: Total time spent is greater than 50% in coordination of care (as documented) at patient's floor/unit and/or counseling patient: Prolonged Care Time Prolonged Care Time: Yes Total Prolonged Care Time: 120 total time spent reviewing imaging, on phone with [place], multiple trips to bedside, discussion with on phone, arranging Hycentra infusion with pharmacy/clinical coordinator/, consultations with specialists Coding Level of Care Code 30293 Subseq Hosp Care Lvl 3 (25 - SIGNIFICANT, SEPARATELY IDENTIFIABLE ) Diagnoses Encephalopathy G93.40 Acute UTI N39.0 Gram negative sepsis A41.50 Non-small cell lung cancer (NSCLC) C34.91 Laterality: right HTN (hypertension) I10 Ischemic cardiomyopathy I25.5 COPD (chronic obstructive pulmonary disease) J44.0 COPD type: COPD with acute lower respiratory infection Sjogren's disease M35.00 Severe protein-calorie malnutrition E43 Underweight R63.6 Fever R50.9 Anemia D64.9 Anemia type: unspecified type Glaucoma H40.9 Diarrhea R19.7 GERD (gastroesophageal reflux disease) K21.9 Immune deficiency disorder D84.9 Additional Codes Prolonged Care Time - Prolonged Care Time: Yes ([id number]) (1) Anemia Anemia type: unspecified type Qualified Code(s): D64.9 - Anemia, unspecified (2) Non-small cell lung cancer (NSCLC) Laterality: right Qualified Code(s): C34.91 - Malignant neoplasm of unspecified part of right bronchus or lung (3) COPD (chronic obstructive pulmonary disease) COPD type: COPD with acute lower respiratory infection Qualified Code(s): J44.0 - Chronic obstructive pulmonary disease with acute lower respiratory infection
[2020-08-17] MEDS ORDERED: NovoLIN-N (NPH) PER UNIT CHARGE SQ ONE (09:15)
--- NOTE | 2020-08-17 09:42 | CT Scan Report ---
CT SCAN OF THE BRAIN WITHOUT IV CONTRAST CLINICAL HISTORY: Strokelike symptoms. Change in mental status. COMPARISON STUDY: CT of the brain dated 08/13/2020. TECHNIQUE: Unenhanced axial CT scan of the brain is performed from the vertex to the skull base. A do se lowering technique was utilized adhering to the principles of ALARA. CT DOSE: 537.48 mGy.cm FINDINGS: Brain parenchyma: There are age-related involutional changes noting mild subcortical and periventric ular microangiopathic change. There is no hemorrhage, mass effect, or evidence of acute territorial i schemia by CT criteria. Ibarra-white matter differentiation is preserved. No extra-axial fluid collecti on is seen. Ventricles, sulci, cisterns: Prominent secondary to involutional change. Intracranial vasculature: There is atherosclerotic calcification of the cavernous carotid and vertebr al arteries. Calvarium: Unremarkable. Sinuses and mastoids: The visualized paranasal sinuses are clear. The mastoid air cells are well pneu matized. Orbits: The bony orbits are grossly intact. There are bilateral ocular lens implants. IMPRESSION: There is no hemorrhage, mass effect, or evidence of acute territorial ischemia by CT crit miesha. ACT 112: Negative or not required by law. Electronically signed by: Han Bolanos M.D. 08/17/2020 9:41 AM
[2020-08-17 11:35] LABS: Basophils # (auto) 0.01 K/uL (0-0.2); Basophils % (auto) 0.1 %; Eosinophils # (auto) 0.05 K/uL (0-0.5); Eosinophils % (auto) 0.5 %; Hematocrit (blood only) 29.5 % (37-47); Hemoglobin 9.7 g/dL (12.0-16.0); Immature Granulocytes # (auto) 0.02 K/uL (0.00-0.02); Immature Granulocytes % (auto) 0.2 %; Lymphocytes # (auto) 1.21 K/uL (1.2-3.4); Lymphocytes % (auto) 11.8 %; Mean Corpuscular Volume 79.1 fL (80-100); Mean Platelet Volume 9.1 fL (7.4-10.4); Monocytes % (auto) 8.8 %; Neutrophils # (auto) 8.07 K/uL (1.4-6.5); Neutrophils % (auto) 78.6 %; Platelet Count 139 K/uL (130-400); RDW Coefficient of Variation 17.6 % (11.5-14.5); RDW Standard Deviation 50.4 fL (36.4-46.3); Red Blood Count 3.73 M/uL (4.2-5.4); White Blood Count 10.26 K/uL (4.8-10.8)
--- NOTE | 2020-08-17 11:35 | Electroencephalogram ---
EEG Procedure Note Date of Service August 17, 2020 Start / End Times Start Time: 10:54 AM End Time: 11:14 AM Referring Physician Chantelle Alexis PA-C History Altered mental status, rule out seizure activity Home Medication List Medication Instructions Recorded Confirmed Type cevimeline 30 mg PO TIDM 06/21/18 08/13/20 History isosorbide mononitrate 60 mg PO QAM 06/21/18 08/13/20 History magnesium 500 mg PO QAM 06/21/18 08/13/20 History ondansetron 8 mg PO Q8H PRN 06/21/18 08/13/20 History potassium chloride 10 meq PO TIDM 06/21/18 08/13/20 History raloxifene 60 mg PO QPM 06/21/18 08/13/20 History ranolazine [Ranexa] 500 mg PO AMHS 06/21/18 08/13/20 History simvastatin 40 mg PO HS 06/21/18 08/13/20 History Calcium 600 + D(3) 1 cap PO BIDM 09/06/18 08/13/20 History pantoprazole 40 mg PO QAM 09/23/18 08/13/20 History immun glob G 4 gram/20 mL(20 8 gm SQ WEEKLY ml 02/16/19 08/13/20 History %)-prol-IgA 0-50 mcg/mL subcutaneous soln prednisone 1 mg tablet,delayed 3 mg PO QAM tab 02/16/19 08/13/20 History release prochlorperazine maleate 10 mg PO Q8H PRN 04/05/19 08/13/20 History [Compazine] Plexus-Probio 5 1 dose PO DAILY 03/11/20 08/13/20 History albuterol sulfate 2 puffs INH AMPM 03/11/20 08/13/20 History benzonatate 100 mg PO Q6H PRN 03/11/20 08/13/20 History epinephrine [EpiPen] 0.3 mg IM Q3H PRN 03/11/20 08/13/20 History metoprolol tartrate 75 mg PO AMHS 03/11/20 08/13/20 History jexxlovhvcjk-yyblschu-jlsixh 1 tab PO DAILY 03/11/20 08/13/20 History nitroglycerin [Nitrostat] 0.4 mg SUBLINGUAL DIRECTED PRN 03/11/20 08/13/20 History guaifenesin [Mucinex] 600 mg PO Q12 PRN 08/13/20 08/13/20 History ofloxacin 1 drp OPL QID 08/13/20 08/13/20 History prednisolone acetate 1 drp OPL QID 08/13/20 08/13/20 History cephalexin 500 mg PO QID 6 Days #24 cap 08/16/20 Rx ferrous sulfate 325 mg PO QAM #30 tab 08/16/20 Rx Inpatient Medication List Acetaminophen (Acetaminophen 325 Mg Tab) 650 mg PO Q4H PRN PRN Reason: pain/fever Stop: 09/12/20 14:34 Last Admin: 08/16/20 18:07 Dose: 650 mg Documented by: [id number] Admin: 08/16/20 11:51 Dose: 650 mg Documented by: [id number] Admin: 08/15/20 18:16 Dose: 650 mg Documented by: [id number] Admin: 08/15/20 08:17 Dose: 650 mg Documented by: [id number] Admin: 08/14/20 19:46 Dose: 650 mg Documented by: [id number] Admin: 08/14/20 04:55 Dose: 650 mg Documented by: [id number] Admin: 08/14/20 00:17 Dose: 650 mg Documented by: [id number] Admin: 08/13/20 16:05 Dose: 650 mg Documented by: [id number] Aspirin (Aspirin 81 Mg Ectab) 81 mg PO QDL RANI Stop: 09/13/20 11:29 Last Admin: 08/15/20 11:39 Dose: 81 mg Documented by: [id number] Admin: 08/14/20 12:23 Dose: 81 mg Documented by: [id number] Cevimeline HCl (Cevimeline Hcl) 1 ea PO TIDM RANI Stop: 09/12/20 16:59 Last Admin: 08/17/20 11:04 Dose: Not Given Documented by: [id number] Admin: 08/16/20 18:05 Dose: 1 ea Documented by: [id number] Admin: 08/16/20 11:51 Dose: 1 ea Documented by: [id number] Admin: 08/16/20 08:01 Dose: 1 ea Documented by: [id number] Admin: 08/15/20 17:21 Dose: 1 ea Documented by: [id number] Admin: 08/15/20 13:40 Dose: 1 ea Documented by: [id number] Admin: 08/15/20 08:28 Dose: 1 ea Documented by: [id number] Admin: 08/14/20 17:02 Dose: 1 ea Documented by: [id number] Admin: 08/14/20 12:24 Dose: 1 ea Documented by: [id number] Admin: 08/14/20 09:12 Dose: 1 ea Documented by: [id number] Admin: 08/13/20 18:00 Dose: 1 ea Documented by: [id number] Ferrous Sulfate (Ferrous Sulfate 325 Mg Tab) 325 mg PO BIDM RANI Stop: 09/14/20 16:59 Last Admin: 08/16/20 08:02 Dose: 325 mg Documented by: [id number] Admin: 08/15/20 17:22 Dose: 325 mg Documented by: [id number] Heparin Sodium (Porcine) (Heparin 100 Unit/Ml 5ml Flush) 5 ml FLUSH PRN PRN PRN Reason: Flush Stop: 09/13/20 03:09 Last Admin: 08/16/20 12:49 Dose: 5 ml Documented by: [id number] Admin: 08/16/20 03:49 Dose: 5 ml Documented by: [id number] Admin: 08/15/20 03:52 Dose: 5 ml Documented by: [id number] Admin: 08/14/20 15:08 Dose: 5 ml Documented by: [id number] Heparin Sodium (Porcine) (Heparin Sod 5,000 Unit/0.5 Ml Vial) 5,000 units SQ Q12 [facility]ANI Stop: 09/14/20 20:59 Last Admin: 08/17/20 08:36 Dose: 5,000 units Documented by: [id number] Admin: 08/16/20 20:44 Dose: 5,000 units Documented by: [id number] Admin: 08/16/20 08:02 Dose: 5,000 units Documented by: [id number] Admin: 08/15/20 20:25 Dose: 5,000 units Documented by: [id number] Cefepime HCl 2,000 mg/ Syringe 20 mls @ 5 mls/min IV Q12H [facility]; Protocol Stop: 08/18/20 07:03 Last Admin: 08/17/20 06:32 Dose: 5 mls/min Documented by: [id number] Isosorbide Mononitrate (Isosorbide [place] Extended Rel 60 Mg Tabcr) 60 mg PO QAM RANI Stop: 09/13/20 08:59 Last Admin: 08/17/20 11:18 Dose: Not Given Documented by: [id number] Admin: 08/16/20 08:02 Dose: 60 mg Documented by: [id number] Admin: 08/15/20 08:19 Dose: 60 mg Documented by: [id number] Admin: 08/14/20 09:14 Dose: 60 mg Documented by: [id number] Loperamide HCl (Loperamide Hcl 2 Mg Cap) 2 mg PO Q6H PRN PRN Reason: Diarrhea Stop: 09/13/20 15:56 Last Admin: 08/15/20 13:39 Dose: 2 mg Documented by: [id number] Admin: 08/15/20 09:28 Dose: 2 mg Documented by: [id number] Magnesium Oxide (Magnesium Oxide 400 Mg Tab) 400 mg PO [facility] Stop: 09/13/20 08:59 Last Admin: 08/17/20 11:19 Dose: Not Given Documented by: [id number] Admin: 08/16/20 08:02 Dose: 400 mg Documented by: [id number] Admin: 08/15/20 08:18 Dose: 400 mg Documented by: [id number] Admin: 08/14/20 09:13 Dose: 400 mg Documented by: [id number] Metoprolol Tartrate (Metoprolol Tartrate 25 Mg Tab) 75 mg PO [facility] Stop: 09/12/20 20:59 Last Admin: 08/17/20 11:19 Dose: Not Given Documented by: [id number] Admin: 08/16/20 20:45 Dose: 75 mg Documented by: [id number] Admin: 08/16/20 08:03 Dose: 75 mg Documented by: [id number] Admin: 08/15/20 20:31 Dose: 75 mg Documented by: [id number] Admin: 08/15/20 08:19 Dose: 75 mg Documented by: [id number] Admin: 08/14/20 21:11 Dose: 75 mg Documented by: [id number] Admin: 08/14/20 09:14 Dose: 75 mg Documented by: [id number] Admin: 08/13/20 20:50 Dose: 75 mg Documented by: [id number] Miscellaneous (Hizentra 4 Gram/20 Ml (20 %) ~ Order Awaiting Action) 1 ea N/A QS [facility] Stop: 09/14/20 00:00 Last Admin: 08/17/20 08:31 Dose: Not Given Documented by: [id number] Admin: 08/16/20 23:11 Dose: Not Given Documented by: [id number] Admin: 08/16/20 15:13 Dose: Not Given Documented by: [id number] Admin: 08/16/20 08:01 Dose: Not Given Documented by: [id number] Admin: 08/15/20 23:06 Dose: Not Given Documented by: [id number] Admin: 08/15/20 16:46 Dose: Not Given Documented by: [id number] Admin: 08/15/20 08:28 Dose: Not Given Documented by: [id number] Admin: 08/14/20 23:22 Dose: Not Given Documented by: [id number] Multivitamins/Minerals (Calcium 600mg + Vit D 400 Iu Tab) 1 tab PO BIDM RANI Stop: 09/12/20 16:59 Last Admin: 08/17/20 11:04 Dose: Not Given Documented by: [id number] Admin: 08/16/20 18:05 Dose: 1 tab Documented by: [id number] Admin: 08/16/20 08:02 Dose: 1 tab Documented by: [id number] Admin: 08/15/20 17:23 Dose: 1 tab Documented by: [id number] Admin: 08/15/20 08:18 Dose: 1 tab Documented by: [id number] Admin: 08/14/20 17:02 Dose: 1 tab Documented by: [id number] Admin: 08/14/20 09:14 Dose: 1 tab Documented by: [id number] Admin: 08/13/20 16:56 Dose: 1 tab Documented by: [id number] Multivitamins/Minerals (Cerovite Adv Formula Tab) 1 tab PO DAILY RANI Stop: 09/13/20 08:59 Last Admin: 08/17/20 11:19 Dose: Not Given Documented by: [id number] Admin: 08/16/20 08:02 Dose: 1 tab Documented by: [id number] Admin: 08/15/20 08:19 Dose: 1 tab Documented by: [id number] Admin: 08/14/20 09:13 Dose: 1 tab Documented by: [id number] Ondansetron HCl (Ondansetron 4 Mg Od Tab) 4 mg PO Q8H PRN PRN Reason: Nausea Stop: 09/12/20 15:35 Last Admin: 08/16/20 17:19 Dose: 4 mg Documented by: [id number] Admin: 08/15/20 18:16 Dose: 4 mg Documented by: [id number] Admin: 08/15/20 09:28 Dose: 4 mg Documented by: [id number] Admin: 08/14/20 19:45 Dose: 4 mg Documented by: [id number] Admin: 08/13/20 17:38 Dose: 4 mg Documented by: [id number] Pantoprazole Sodium (Pantoprazole 40 Mg Tab) 40 mg PO BID RANI Stop: 09/14/20 20:59 Last Admin: 08/17/20 11:19 Dose: Not Given Documented by: [id number] Admin: 08/16/20 20:47 Dose: 40 mg Documented by: [id number] Admin: 08/16/20 08:02 Dose: 40 mg Documented by: [id number] Admin: 08/15/20 20:30 Dose: 40 mg Documented by: [id number] Potassium Chloride (Potassium Chloride 10 Meq Tabcr) 10 meq PO TIDM RANI Stop: 09/12/20 16:59 Last Admin: 08/17/20 11:06 Dose: Not Given Documented by: [id number] Admin: 08/16/20 18:05 Dose: 10 meq Documented by: [id number] Admin: 08/16/20 11:51 Dose: 10 meq Documented by: [id number] Admin: 08/16/20 08:02 Dose: 10 meq Documented by: [id number] Admin: 08/15/20 17:24 Dose: 10 meq Documented by: [id number] Admin: 08/15/20 13:40 Dose: 10 meq Documented by: [id number] Admin: 08/15/20 08:18 Dose: 10 meq Documented by: [id number] Admin: 08/14/20 17:02 Dose: 10 meq Documented by: [id number] Admin: 08/14/20 12:24 Dose: 10 meq Documented by: [id number] Admin: 08/14/20 09:12 Dose: 10 meq Documented by: [id number] Admin: 08/13/20 16:56 Dose: 10 meq Documented by: [id number] Prednisone (Prednisone 1 Mg Tab) 3 mg PO QAM RANI Stop: 09/13/20 08:59 Last Admin: 08/17/20 11:19 Dose: Not Given Documented by: [id number] Admin: 08/16/20 08:02 Dose: 3 mg Documented by: [id number] Admin: 08/15/20 08:18 Dose: 3 mg Documented by: [id number] Admin: 08/14/20 09:13 Dose: 3 mg Documented by: [id number] Raloxifene HCl (Raloxifene Hcl 60 Mg Tab) 60 mg PO QDD [facility] Stop: 09/15/20 16:29 Last Admin: 08/16/20 18:05 Dose: 60 mg Documented by: [id number] Ranolazine (Ranolazine 500 Mg Er Tab) 500 mg PO AMHS [facility] Stop: 09/12/20 20:59 Last Admin: 08/17/20 11:19 Dose: Not Given Documented by: [id number] Admin: 08/16/20 20:48 Dose: 500 mg Documented by: [id number] Admin: 08/16/20 08:02 Dose: 500 mg Documented by: [id number] Admin: 08/15/20 20:29 Dose: 500 mg Documented by: [id number] Admin: 08/15/20 08:18 Dose: 500 mg Documented by: [id number] Admin: 08/14/20 21:13 Dose: 500 mg Documented by: [id number] Admin: 08/14/20 09:14 Dose: 500 mg Documented by: [id number] Admin: 08/13/20 20:51 Dose: 500 mg Documented by: [id number] Simvastatin (Simvastatin 40 Mg Tab) 40 mg PO HS [facility] Stop: 09/12/20 20:59 Last Admin: 08/16/20 20:48 Dose: 40 mg Documented by: [id number] Admin: 08/15/20 20:29 Dose: 40 mg Documented by: [id number] Admin: 08/14/20 21:13 Dose: 40 mg Documented by: [id number] Admin: 08/13/20 20:51 Dose: 40 mg Documented by: [id number] Discontinued Medications Diphenhydramine HCl (Diphenhydramine Capsule 25 Mg Cap) 25 mg PO NOW ONE Stop: 08/15/20 02:03 Last Admin: 08/15/20 03:06 Dose: 25 mg Documented by: [id number] Diphenhydramine HCl (Diphenhydramine Capsule 25 Mg Cap) 25 mg PO NOW ONE Stop: 08/16/20 00:15 Last Admin: 08/16/20 01:01 Dose: 25 mg Documented by: [id number] Diphenhydramine HCl (Diphenhydramine 50 Mg/Ml Vial) 25 mg IV Q8H PRN PRN Reason: Rash Stop: 09/15/20 19:02 Last Admin: 08/17/20 06:30 Dose: 25 mg Documented by: [id number] Admin: 08/16/20 20:10 Dose: 25 mg Documented by: [id number] Ferrous Sulfate (Ferrous Sulfate 325 Mg Tab) 325 mg PO QAM [facility] Stop: 09/14/20 08:59 Last Admin: 08/15/20 10:02 Dose: 325 mg Documented by: [id number] Heparin Sodium (Porcine) (Heparin Sod 5,000 Unit/0.5 Ml Vial) 5,000 units SQ Q12 [facility] Stop: 09/12/20 20:59 Last Admin: 08/15/20 08:17 Dose: 5,000 units Documented by: [id number] Admin: 08/14/20 21:11 Dose: 5,000 units Documented by: [id number] Admin: 08/14/20 09:15 Dose: 5,000 units Documented by: [id number] Admin: 08/13/20 20:52 Dose: 5,000 units Documented by: [id number] Sodium Chloride (Nss) 500 mls @ 999 mls/hr IV .Q31M ONE Stop: 08/13/20 12:59 Last Infusion: 08/13/20 14:17 Dose: 0 mls/hr Documented by: [id number] Admin: 08/13/20 13:46 Dose: 999 mls/hr Documented by: [id number] Ceftriaxone Sodium (Rocephin) 2,000 mg in 70 mls @ 140 mls/hr IV NOW STA Stop: 08/13/20 13:30 Last Infusion: 08/13/20 14:17 Dose: 0 mls/hr Documented by: [id number] Admin: 08/13/20 13:46 Dose: 140 mls/hr Documented by: [id number] Cefepime HCl 2,000 mg/ Syringe 20 mls @ 5 mls/min IV Q12H [facility]; Protocol Stop: 08/16/20 15:29 Last Admin: 08/16/20 03:49 Dose: 5 mls/min Documented by: [id number] Admin: 08/15/20 16:42 Dose: 5 mls/min Documented by: [id number] Admin: 08/15/20 03:51 Dose: 5 mls/min Documented by: [id number] Admin: 08/14/20 15:05 Dose: 5 mls/min Documented by: [id number] Iron Sucrose 200 mg/ Sodium (Chloride) 110 mls @ 140.667 mls/hr IV 1200 ONE Stop: 08/16/20 12:46 Last Admin: 08/16/20 12:00 Dose: Not Given Documented by: [id number] Cefepime HCl 2,000 mg/ Syringe 20 mls @ 5 mls/min IV NOW ONE; Protocol Stop: 08/16/20 19:18 Last Admin: 08/16/20 20:06 Dose: 5 mls/min Documented by: [id number] Ioversol (Optiray 350 500ml) 120 ml IV ONCE ONE Stop: 08/13/20 12:56 Last Admin: 08/13/20 13:01 Dose: 120 ml Documented by: [id number] Miscellaneous (Cevimeline 30 Mg Capsule ~ Order Awaiting Action) 1 ea N/A QS [facility] Stop: 09/12/20 15:59 Last Admin: 08/13/20 16:58 Dose: Not Given Documented by: [id number] Ofloxacin (Ofloxacin 0.3% Op Soln 5 Ml Btl) 1 drops OPL QID [facility] Stop: 08/23/20 16:59 Last Admin: 08/16/20 20:47 Dose: 1 drops Documented by: [id number] Admin: 08/16/20 17:25 Dose: 1 drops Documented by: [id number] Admin: 08/16/20 13:34 Dose: 1 drops Documented by: [id number] Admin: 08/16/20 08:13 Dose: 1 drops Documented by: [id number] Admin: 08/15/20 20:25 Dose: 1 drops Documented by: [id number] Admin: 08/15/20 17:23 Dose: 1 drops Documented by: [id number] Admin: 08/15/20 13:40 Dose: 1 drops Documented by: [id number] Admin: 08/15/20 08:20 Dose: 1 drops Documented by: [id number] Admin: 08/14/20 21:11 Dose: 1 drops Documented by: [id number] Admin: 08/14/20 17:01 Dose: 1 drops Documented by: [id number] Admin: 08/14/20 12:25 Dose: 1 drops Documented by: [id number] Admin: 08/14/20 09:16 Dose: 1 drops Documented by: [id number] Admin: 08/13/20 20:49 Dose: 1 drops Documented by: [id number] Admin: 08/13/20 16:57 Dose: 1 drops Documented by: [id number] Pantoprazole Sodium (Pantoprazole 40 Mg Tab) 40 mg PO QAM [facility] Stop: 09/13/20 08:59 Last Admin: 08/15/20 08:18 Dose: 40 mg Documented by: [id number] Admin: 08/14/20 09:13 Dose: 40 mg Documented by: [id number] Prednisolone Acetate (Prednisolone Acetate 1% Op Susp 5 Ml Btl) 1 drops OPL QID [facility]ANI Stop: 09/12/20 16:59 Last Admin: 08/14/20 21:12 Dose: 1 drops Documented by: [id number] Admin: 08/14/20 17:01 Dose: 1 drops Documented by: [id number] Admin: 08/14/20 12:25 Dose: 1 drops Documented by: [id number] Admin: 08/14/20 09:15 Dose: 1 drops Documented by: [id number] Admin: 08/13/20 20:50 Dose: 1 drops Documented by: [id number] Admin: 08/13/20 16:57 Dose: 1 drops Documented by: [id number] Prednisolone Acetate (Prednisolone Acetate 1% Op Susp 5 Ml Btl) 1 drops OPR BID [facility]ANI Stop: 09/12/20 20:59 Last Admin: 08/16/20 20:46 Dose: 1 drops Documented by: [id number] Admin: 08/16/20 07:59 Dose: 1 drops Documented by: [id number] Admin: 08/15/20 20:24 Dose: 1 drops Documented by: [id number] Admin: 08/14/20 21:12 Dose: 1 drops Documented by: [id number] Admin: 08/14/20 09:16 Dose: 1 drops Documented by: [id number] Admin: 08/13/20 20:49 Dose: 1 drops Documented by: [id number] Prednisolone Acetate (Prednisolone Acetate 1% Op Susp 5 Ml Btl) 1 drops OPL QID [facility] Stop: 09/12/20 16:59 Last Admin: 08/16/20 20:46 Dose: 1 drops Documented by: [id number] Admin: 08/16/20 17:21 Dose: 1 drops Documented by: [id number] Admin: 08/16/20 13:31 Dose: 1 drops Documented by: [id number] Admin: 08/16/20 07:59 Dose: 1 drops Documented by: [id number] Admin: 08/15/20 20:25 Dose: 1 drops Documented by: [id number] Admin: 08/15/20 17:24 Dose: 1 drops Documented by: [id number] Admin: 08/15/20 13:40 Dose: 1 drops Documented by: [id number] Admin: 08/15/20 10:03 Dose: 1 drops Documented by: [id number] Raloxifene HCl (Raloxifene Hcl 60 Mg Tab) 60 mg PO QPM [facility] Stop: 08/15/20 23:59 Last Admin: 08/15/20 20:27 Dose: 60 mg Documented by: [id number] Admin: 08/14/20 21:13 Dose: 60 mg Documented by: [id number] Admin: 08/13/20 20:51 Dose: 60 mg Documented by: [id number] Description This is a 21 electrode EEG with a single channel dedicated to limited EKG. The electrodes were placed in accordance with the International 10-20 system. The predominant background rhythm consists of generalized, moderate amplitude 4- 1/2 to 6 Hz slowing. There are a few triphasic waves. Photic stimulation is unremarkable. Hyperventilation is not performed. There is no focal or lateralized slowing. There are no epileptiform abnormalities. Interpretation Abnormal awake/drowsy EEG revealing findings suggestive of a moderate nonspecific encephalopathy. There is no evidence of subclinical seizure activity. Further clinical correlation may be needed. [facility] EEG Procedure Codes Indication for Procedure (1) Encephalopathy: Neurology Neurology: 57783 EEG include record awake & drowsy
[2020-08-17 11:36] LABS: Mean Corpuscular Hgb Conc 32.9 g/dL (32-36)
[2020-08-17 11:50] LABS: Partial Thromboplastin Ratio 1.8; Partial Thromboplastin Time 47.3 Seconds (21.0-31.0); Prothrombin Time 10.3 Seconds (9.0-12.0)
[2020-08-17 11:51] LABS: Alanine Aminotransferase 24 U/L (12-78); Aspartate Aminotransferase 29 U/L (15-37); Blood Urea Nitrogen 27 mg/dl (7-18); Calcium 8.1 mg/dl (8.5-10.1); Carbon Dioxide 22 mmol/L (21-32); Chloride 110 mmol/L (98-107); Creatinine Clr Calc Pharmacy 37.9 ml/min; Est GFR (African American) 89.7; Est GFR (Non-African American) 77.4; Glucose 104 mg/dl (70-99); Magnesium 2.2 mg/dl (1.8-2.4); Potassium 4.8 mmol/L (3.5-5.1); Sodium 137 mmol/L (136-145)
[2020-08-17 11:56] LABS: Albumin Globulin Ratio 0.4 (0.9-2); Alkaline Phosphatase 116 U/L (45-117); Bilirubin,Total 0.6 mg/dl (0.2-1); Globulin 4.6 gm/dl (2.5-4.0); Total Protein 6.6 gm/dl (6.4-8.2); Troponin I < 0.015 ng/ml (0-0.045)
[2020-08-17] MEDS ORDERED: hydrALAZINE HCL 20 MG/ML VIAL IV STA (12:04)
--- NOTE | 2020-08-17 12:05 | Neurology Consultation ---
Date of Consultation August 17, 2020 Assessment & Plan (1) Encephalopathy: Encephalopathy, possibly adverse reaction to IV diphenhydramine, last received this morning at 6:30 AM, and the evening prior, at 8 PM. This morning's EEG suggestive of a moderate encephalopathy, no evidence of epileptiform abnormalities. This morning CT of the head negative for hemorrhage or acute process. Acute stroke may not be completely excluded. MRI of the brain pending. Check an ammonia level. Continue to monitor patient's neurologic status. If her altered mental status is related to an adverse effect of IV diphenhydramine, I would expect some improvement throughout the day. History of Present Illness Reason for Consultation: Change in mental status Requesting Physician: Chantelle Alexis PA-C Attending Physician: Deborah Lynch MD History of Present Illness The patient is a 75-year-old female who was admitted to the [facility] on August 13 for weakness and confusion that began several days prior. She has a history of metastatic non-small cell lung cancer, Sjogren's, history of Large B cell non-Hodgkin's lymphoma, history of ANTONIETTA and bronchiectasis. She has been unable to tolerate outpatient chemotherapy due to decreased performance status. She has been treated for a possible urinary tract infection. The patient was found by nursing staff this morning to be awake but minimally responsive and with generalized weakness. There was some concern for stroke. She has had an urgent CT of the head completed which was negative for hemorrhage or acute process. I did review the images as well as the radiologist's interpretation of this test. She had an EEG completed as well which revealed changes suggestive of a moderate nonspecific encephalopathy, no epileptiform abnormalities were observed. A brain MRI is pending. The patient is awake and is able to state her name. She will follow simple commands and will track the examiner. She exhibits occasional myoclonic jerking movements of the hands but is otherwise able to move her limbs out of the bed, to command, in a symmetric fashion. According to nursing staff, she has received IV Benadryl overnight and early this morning. Allergies Allergy/AdvReac Type Severity Reaction Status Date / Time No Known Allergies Allergy Verified 08/13/20 13:05 Home Medications Medication Instructions Recorded Confirmed Type cevimeline 30 mg PO TIDM 06/21/18 08/13/20 History isosorbide mononitrate 60 mg PO QAM 06/21/18 08/13/20 History magnesium 500 mg PO QAM 06/21/18 08/13/20 History ondansetron 8 mg PO Q8H PRN 06/21/18 08/13/20 History potassium chloride 10 meq PO TIDM 06/21/18 08/13/20 History raloxifene 60 mg PO QPM 06/21/18 08/13/20 History ranolazine [Ranexa] 500 mg PO AMHS 06/21/18 08/13/20 History simvastatin 40 mg PO HS 06/21/18 08/13/20 History Calcium 600 + D(3) 1 cap PO BIDM 09/06/18 08/13/20 History pantoprazole 40 mg PO QAM 09/23/18 08/13/20 History immun glob G 4 gram/20 mL(20 8 gm SQ WEEKLY ml 02/16/19 08/13/20 History %)-prol-IgA 0-50 mcg/mL subcutaneous soln prednisone 1 mg tablet,delayed 3 mg PO QAM tab 02/16/19 08/13/20 History release prochlorperazine maleate 10 mg PO Q8H PRN 04/05/19 08/13/20 History [Compazine] Plexus-Probio 5 1 dose PO DAILY 03/11/20 08/13/20 History albuterol sulfate 2 puffs INH AMPM 03/11/20 08/13/20 History benzonatate 100 mg PO Q6H PRN 03/11/20 08/13/20 History epinephrine [EpiPen] 0.3 mg IM Q3H PRN 03/11/20 08/13/20 History metoprolol tartrate 75 mg PO AMHS 03/11/20 08/13/20 History mmojfyjkypiy-rtxjdydf-nceeei 1 tab PO DAILY 03/11/20 08/13/20 History nitroglycerin [Nitrostat] 0.4 mg SUBLINGUAL DIRECTED PRN 03/11/20 08/13/20 History guaifenesin [Mucinex] 600 mg PO Q12 PRN 08/13/20 08/13/20 History ofloxacin 1 drp OPL QID 08/13/20 08/13/20 History prednisolone acetate 1 drp OPL QID 08/13/20 08/13/20 History cephalexin 500 mg PO QID 6 Days #24 cap 08/16/20 Rx ferrous sulfate 325 mg PO QAM #30 tab 08/16/20 Rx Patient History Medical History CAD (coronary artery disease), [place] coronary artery With stable angina COPD exacerbation Diarrhea GERD (gastroesophageal reflux disease) DIET CONTROLLED Glaucoma History of lung cancer dx 2018 chemo History of lymphoma dx 2016, in remission Hyperlipidemia Hypertension Hypogammaglobulinemia Immunodeficiency Immunosuppression Mitral regurgitation mild to moderate Osteoporosis Sjogren's disease Steroid dependence sjogrens disease TIA (transient ischemic attack) 12/14/2018, TIA vs possible seizure. Surgical History History of arthroscopy RIGHT KNEE MENISCUS History of cataract surgery RT History of cholecystectomy History of colonoscopy History of coronary artery bypass graft 4 VESSEL, [facility] 6 YEARS AGO History of hysterectomy Family History Unknown Heart disease Other Family history non-contributory Social History Smoking Status: Never smoker Second Hand Exposure: No; Do You Dip or Chew Tobacco: No; Tobacco Cessation Education Requested by Patient: No Hx Alcohol Use: No Hx Substance Use: No Preferred Language: Citizen Of [place] Communication Ability: Effective Terminal Worker Required: No Beliefs That Will Affect Care: None marital status: Current Living Situation: Spouse current occupational status: retired 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 Other Information That Helps Us Care for You: No Feels Safe at Home: Yes Assistive Devices: None Review of Systems Review of Systems: Unobtainable due to cognitive status Exam (Neuro) Constitutional: well developed and well nourished; no acute distress Eyes: normal visual day by confrontation, PERRL, normal accommodation and EOM intact bilaterally; no fundoscopic abnormality, no nystagmus and no papilledema Cardiovascular: Vessels: normal carotid upstroke; no carotid bruit Neurologic: Oriented to:: Person and Place; negative Time Memory: negative Short Term Intact and Remote Intact Attention: negative Span Intact and Concentration Intact Language: Naming Objects; negative Repeating Phrases Speech Fluency: Limited Comprehension and Slowed Fund of Knowledge: Vocabulary; negative Current Events and Past History Cranial Nerves: Normal II (Visual day full to confrontation, visual acuity normal), III, IV, (Pupils equal round reactive to light and accommodation, eye movements normal), V (Facial sensation intact), VII (There is no facial droop or weakness), VIII (Hearing intact), IX, X (Palate elevates to midline), XI (Shoulder shrug intact) and XII (Tongue protrudes to midline) Motor Strength: negative Normal Lower Extremities, Normal Upper Extremities and Pronator Drift Motor Tone: Normal Lower Extremities and Normal Upper Extremities Muscle Bulk/Involuntary Movements: Muscle Atrophy; negative No Involuntary Movements (Intermittent mild myoclonic type movements of the upper limbs noted.) Sensation: Light Touch Intact, Pain/Temperature Intact, Vibration Intact and Proprioception Intact Coordination: Finger-Nose Abnormal and Heel-Bates Abnormal Deep Tendon Reflexes: Rt Triceps: 2+, Lt Triceps: 2+, Rt Biceps: 2+, Lt Biceps: 2+, Rt Brachioradialis: 2+, Lt Brachioradialis: 2+, Rt Patellar: 2+, Lt Patellar: 2+, Rt Ankle: 2+ and Lt Ankle: 2+ Special Tests: negative Babinski Present Gait: Normal Station and Gait Details: Patient's neurological examination is notable for relative lack of spontaneous speech. Patient is awake and alert, however. She will follow very simple commands. Patient seems to comprehend vocabulary. Otherwise, does not participate very well with full mental status testing. She is somewhat inattentive. She will track objects. There is no gaze preference or nystagmus. She is able to lift both hands out of the bed to command. Grasps equally with both hands. Does not appear to have an obvious hemiparesis. Withdraws both lower limbs to noxious stimulation. There is no posturing. Results & Data ([facility]) Vital Signs (Past 12 Hours) Vital Signs Temp Pulse Resp BP BP Pulse Ox 08/17/20 09:54 97 H 25 H 161/94 H 93 08/17/20 09:43 101 H 15 173/97 H 96 08/17/20 08:30 93 H 146/85 H 08/17/20 07:41 37.2 C 96 H 16 178/93 H 90 Laboratory Results WBC 10.26, hemoglobin 9.7, hematocrit 29.5, platelet count 139, sodium 137, potassium 4.8, BUN 27, creatinine 0.75, glucose 104, calcium 8.1, magnesium 2.2, AST 29, ALT 24, troponin less than 0.[address] of the head is as described in the HPI. Patient did have a brain MRI completed in June 2018 for alteration in mental status. MRI revealed age-related atrophy and chronic small vessel ischemic disease. No evidence for metastatic foci at that time. An EEG completed this morning is as described in the HPI. An electrocardiogram completed this morning revealed a normal sinus rhythm, 92 bpm. Coding Level of Care Code 64643 Initial Inpt Care Lvl 3 Diagnoses Encephalopathy G93.40
[2020-08-17] MEDS: prednisoLONE acetate 1% OP SUSP 5 ML BTL OPR SCH (12:16)
[2020-08-17] MEDS: prednisoLONE acetate 1% OP SUSP 5 ML BTL OPL SCH ×3 (12:16→20:24)
[2020-08-17] MEDS ORDERED: METOPROLOL TARTRATE 1 MG/ML VIAL IV STA (13:01)
--- NOTE | 2020-08-17 13:18 | Pharmacy Report ---
Pharmacy Abx Dose Short Note - Date of Service August 17, 2020 - Assessment & Plan Assessment * 75 year old F receiving cefepime and vancomycin. Was on cefepime x48 hr with plan to transition to cephalexin po yesterday for chavez-sensitive Kleb pneumo UTI, but then yesterday patient spiked a fever and WBC was increased. Concern for possible port infection therefore cefepime continued and vancomycin added this AM * Patient with questionable neurologic symptoms this AM - stroke alert called and she was transfered from 3W to 2N * PMH: SCLC (progressive, not on chemo since October 26 inability to tolerate), immunocompromize (hypogammaglobulinemia on Hizentra weekly) * SCr stable and at/near baseline Vancomycin * Elderly women with low body weight often require high doses (in mg/kg) and also a tighter interval than population-PK would suggest * Current population-PK estimate of vancomycin t 1/2 is 19.7 hrs * Will therefore dose at 20 mg/kg IV q16h * Will check an early trough level is very difficult to estimate in this population - subtherapeutic and supratherapeutic levels possible Plan * Vancomycin 1000 mg IV x1 now then 750 mg IV q16h * Trough 08/18 @ 1930 Pharmacy will continue to follow and will adjust dose/frequency as necessary. Thank you.
[2020-08-17] MEDS ORDERED: GADOBUTROL 65ML VIAL IV ONE (14:13)
--- NOTE | 2020-08-17 14:30 | Ultrasound Report ---
BILATERAL LOWER EXTREMITY VENOUS DOPPLER HISTORY: f/o DVT in cancer pt with fever COMPARISON STUDY: None. FINDINGS: There is normal compressibility, flow, and augmentation within the bilateral lower extremit y deep venous systems. IMPRESSION: No DVT within the right or left lower extremity. ACT 112: Negative or not required by law. Electronically signed by: Bucky Mclain M.D. 08/17/2020 2:29 PM
--- NOTE | 2020-08-17 14:30 | Magnetic Resonance Report ---
MRI OF THE BRAIN WITHOUT AND WITH IV CONTRAST CLINICAL HISTORY: Acute change in mental status. Right-sided weakness. Possible stroke. HISTORY OF KARYN NG GASTRIC CARCINOMA. HISTORY OF LYMPHOMA. COMPARISON STUDY: Noncontrast head CT dated 08/17/2020, MRI the brain dated 06/29/2018 TECHNIQUE: MRI of the brain was performed from the vertex to the skull base utilizing various T1 and T2 weighted sequences. Following the IV administration of 2.5 mL of Gadavist contrast, additional enh anced images were obtained. FINDINGS: Sagittal T1, axial diffusion, proton density and T2 weighted axial, coronal FLAIR, and pre and post a xial T1-weighted images were acquired. These were supplemented with post gadolinium coronal T1 weight ed images. No intra or extra-axial mass lesions are visualized. Axial diffusion-weighted images reveal no evidence of acute or subacute infarction. There is no evidence of ventricular dilatation. Proton density T2-weighted and FLAIR images reveal scattered foci of increased T2 signal within the w adama matter, likely on a small vessel basis. There are no abnormal flow voids. Gradient echo images demonstrate evidence for a 3 mm susceptibility artifact within the left medial t emporal lobe, likely secondary to a small calcification or prior tiny hemorrhage. There is no evidence of pathologic enhancement. IMPRESSION: 1. No acute intracranial findings 2. No evidence of intracranial mass 2. No evidence of acute or subacute infarction ACT 112: Negative or not required by law. Electronically signed by: Jose Jackson M.D. 08/17/2020 2:29 PM
[2020-08-17] MEDS ORDERED: Nursing to Pharmacy Communication SCH (15:00)
[2020-08-17] MEDS ORDERED: IMMUNE GLOBULIN SC SCH (16:00)
[2020-08-17] MEDS: IMMUNE GLOBULIN SC SCH (16:05)
--- NOTE | 2020-08-17 16:22 | Electrocardiogram Report ---
Test Reason : Blood Pressure : / mmHG Vent. Rate : 092 BPM Atrial Rate : 092 BPM P-R Int : 136 ms QRS Dur : 106 ms QT Int : 400 ms P-R-T Axes : 030 061 048 degrees QTc Int : 495 ms Normal sinus rhythm Incomplete right bundle branch block Prolonged QT Abnormal ECG When compared with ECG of 13-AUG-2020 12:26, T wave inversion no longer evident in Anterior leads Confirmed by Ceferino Dee ([id number]) on 08/17/2020 4:21:47 PM Referred By: Evin Villalpando Confirmed By:Brad Dee
--- NOTE | 2020-08-17 16:42 | XCELERA ---
[id number]
[2020-08-17] MEDS: FERROUS SULFATE 325 MG TAB PO SCH (17:33)
[2020-08-17] MEDS: RALOXIFENE HCL 60 MG TAB PO SCH (17:39)
[2020-08-17] MEDS ORDERED: OPTIRAY 350 500ml IV ONE (17:51)
--- NOTE | 2020-08-17 18:06 | CT Scan Report ---
CTA ANGIOGRAPHY OF THE HEAD CLINICAL HISTORY: Stroke Like Symptoms COMPARISON STUDY: Head CT and MRI of the brain performed earlier today. TECHNIQUE: Helical axial images of the head were obtained following uneventful intravenous administr ation of 113 cc of Optiray. Sagittal and coronal reconstructions were viewed as well as maximal inten sity projections on an independent 3-D workstation. Automated exposure control was utilized for the study. A dose lowering technique was utilized adhering to the principles of ALARA. CT DOSE: 241.22 mGy.cm FINDINGS: No acute intracranial hemorrhage, midline shift or mass effect is present. Ventricular syst em is normal. Basal cisterns are patent. There are no extra axial collections. The bilateral M1, M2, A1 and A2 segments are patent. The posterior circulation is intact. There is moderate calcified plaqu e within the bilateral cavernous carotids without significant stenosis. There is no central vessel oc clusion. No intracranial aneurysm or dissection. IMPRESSION: No central vessel occlusion. No intracranial aneurysm. ACT 112: Negative or not required by law. Electronically signed by: Remington Melvin M.D. 08/17/2020 6:04 PM
--- NOTE | 2020-08-17 18:12 | CT Scan Report ---
CT ANGIOGRAPHY OF THE NECK WITH CONTRAST CLINICAL HISTORY: Stroke Like Symptoms COMPARISON STUDY: Carotid ultrasound August 10, 2017. Technique: CT angiography of the carotid and vertebral arteries was obtained using Optiray and 3D rec onstruction on an independent workstation. NASCET criteria was utilized. Automated exposure control was utilized for the study. A dose lowering technique was utilized adhering to the principles of ALA RA. Findings: Right upper lobe mass and pulmonary nodules are partially imaged on this exam. These are be tter depicted on chest CT of August 13, 2020. Note is made of extensive contrast within venous collate rals. The bilateral common carotid, cervical internal carotid and vertebral arteries are patent. No s tenosis within the vessels of the neck is noted. There is no dissection. No cervical lymphadenopathy is present. No cervical spine fracture is noted. No suspicious lesions are identified within visualiz ed skeletal structures. The epiglottis is normal. Venous gas is noted. IMPRESSION: 1. No stenosis or dissection within the major vessels of the neck. 2. Partially visualized right upper lobe mass and numerous pulmonary nodules which are better depicte d on chest CT of August 13, 2020. 3. Extensive contrast within venous collaterals which raises the possibility of central venous stenos is. ACT 112: Negative or not required by law. Electronically signed by: Remington Melvin M.D. 08/17/2020 6:11 PM
[2020-08-17] MEDS: HEPARIN 100 UNIT/ML 5ML FLUSH FLUSH PRN ×2 (18:37→20:23)
[2020-08-17] MEDS: SIMVASTATIN 40 MG TAB PO SCH (20:23)
[2020-08-17] MEDS ORDERED: D5W AND 1/2NSS 1,000 ML IV SCH (21:15)
[2020-08-18] MEDS: VANCOMYCIN HCL 750 MG in SODIUM CHLORIDE 0.9% 250 ML IV SCH ×2 (04:06→21:33)
[2020-08-18 06:11] LABS: Basophils # (auto) 0.01 K/uL (0-0.2); Basophils % (auto) 0.1 %; Eosinophils # (auto) 0.17 K/uL (0-0.5); Eosinophils % (auto) 2.1 %; Hematocrit (blood only) 29.7 % (37-47); Hemoglobin 9.4 g/dL (12.0-16.0); Immature Granulocytes # (auto) 0.02 K/uL (0.00-0.02); Immature Granulocytes % (auto) 0.2 %; Lymphocytes # (auto) 1.83 K/uL (1.2-3.4); Lymphocytes % (auto) 22.8 %; Mean Corpuscular Hemoglobin 25.3 pg (25-34); Mean Corpuscular Hgb Conc 31.6 g/dL (32-36); Mean Corpuscular Volume 79.8 fL (80-100); Mean Platelet Volume 9.2 fL (7.4-10.4); Monocytes % (auto) 8.7 %; Neutrophils % (auto) 66.1 %; Platelet Count 152 K/uL (130-400); RDW Coefficient of Variation 17.6 % (11.5-14.5); RDW Standard Deviation 51.4 fL (36.4-46.3); Red Blood Count 3.72 M/uL (4.2-5.4); White Blood Count 8.03 K/uL (4.8-10.8)
[2020-08-18] MEDS: CEFEPIME 2,000 MG in SYRINGE 0 ML IV SCH (06:26)
[2020-08-18 06:31] LABS: Estimated Average Glucose 123 mg/dl; Hemoglobin A1C 5.9 % (4.5-5.6)
[2020-08-18 06:53] LABS: Albumin Globulin Ratio 0.5 (0.9-2); BUN Creatinine Ratio 32.3 (10-20); Bilirubin,Total 0.6 mg/dl (0.2-1); Calcium 8.1 mg/dl (8.5-10.1); Est GFR (Non-African American) 87.1; Globulin 4.4 gm/dl (2.5-4.0); Total Protein 6.4 gm/dl (6.4-8.2)
--- NOTE | 2020-08-18 08:27 | Hospitalist Progress Note ---
Date of Service August 18, 2020 Assessment & Plan (1) Encephalopathy: * Patient initially admitted on 08/13/2020 with 5 days of weakness and worsening confusion by her , admitted with sepsis secondary to gram negative bacilli UTI, Klebsiella * She was found to have urinary tract infection -- 1x dose Ceftriaxone in ER * Continued on Cefepime given fever 39.2C on 08/13 however blood cultures were not drawn until after this was started and she had a repeat temperature * Urine cx Klebsiella and was treated with cefepime empirically given her history and possible postobstructive pneumonia with temperature up to 39.2 C on 08/13 * She had been feeling great after treatment with cefepime and resolution of her urinary symptoms and was planning on going home on oral antibiotics on 08/16 before she spiked a fever of 38.1 degrees afternoon of 08/16 * Repeat blood cultures on 08/16 -- all continue to be negative to date --> follow * RSV, influenza, Covid 19 have been negative x2 * Lyme, anaplasmosis also negative * She does have an a port for her history of non-small cell lung cancer * CTA negative for PE but did show a significant increase in the size of a right upper lobe cancer since April 2020 was initially felt to be possible postobstructive pneumonia however I did discuss this with Dr. Galicia on admission and he did not feel that this was a postobstructive pneumonia but rather progression of her cancer. * MRSA swab nasal was negative and she should have had coverage for strep and P seudomonas with her cefepime. * Vancomycin was added 08/17 AM given continued fevers * Sputum culture if able to produce as well as AFB given her history of ANTONIETTA 08/17 * Of note she had been giving Benadryl IV 25 mg while in the hospital due to reported reactions with antibiotics in the past and she had initially tolerated this however she was given 25 mg IV last evening 08/16 and an additional 25 mg this morning at 630 prior to her increased confusion and this has been discontinued * Stroke alert was called * NIH stroke scale informed but has been very inconsistent in scoring, anywhere from 5-23 at times * Discussed with [facility] Dr. Cervantes do not feel that this sounded like a an acute stroke would not recommend TPA at this time unless she had evidence of an M1 branch occlusion on CT angiography which is pending at this time. She did discuss patient's history of non-small cell lung cancer with progressive disease and we decided to do an MRI of the brain with and without contrast to look for metastasis brain mass causing this acute confusion * Also discussed the possibility of underlying seizure activity but she recommended that we hold off giving any kind of loading dose medication unless she was observed to have some tonic-clonic seizure activity noted * Neurology was consulted, Dr. Dowd -- appreciate assistance * ammonia was checked and is actually low * repeat CAT scan of the brain was negative for acute CVA * Brain MRI with and without contrast did not show any acute intracranial findings, intracranial mass, acute or subacute infarction * CT angiography of the head and neck with possible central stenosis from her pulmonary mass. ?neuroendocrine w pt w/ hx NSCLC * Venous Dopplers were completed of her bilateral lower extremities which were negative for DVT * Echocardiogram showed a normal the systolic function with moderate mitral annular calcification. No wall motion abnormalities. Right ventricle normal in size and function. * --It does show that evaluation for PFO was inconclusive I will need further discussion with Dr. Dee -- per conversation, not a concern * lipid panel, A1c added to labs (5.9) * NIH stroke scale * PT/OT evaluation * Speech therapy was consulted as patient failed her dysphagia screening and was made n.p.o. however per discussion with speech-language pathologist patient was placed back on a pured diet which should be obtained until improvements are made * Supportive care being given at this time and will continue to monitor 08/18 * No further temps since 38.1/37.9 on 08/16 * Blood cultures from 08/14 and 08/16 still without growth to date -- follow * Still with confusion and abnormal NIHSS, however after discussion with Neurology will give 1gm Keppra for possible subclinical seizures * Possible neuroendocrine and could consider IV steroids +/- IVIG Also considering possible CEFEPIME as culprit for possible severe neurotoxicity which has been reported with use: * --> Per UptoDate: "severe neurotoxicity has been reported with cefepime use, including encephalopathy, aphasia, myoclonus, opsoclonus, seizure, and nonconvulsive status epilepticus (Mari 2019, Isitan 2017, John 2019, Estela 2001, Chuy 2019, Bello 2019)" * Median onset 2-4 days from initiation (she was started on 08/14 and symptoms began 08/16 evening into morning of 08/17 as above) * STOPPED Cefepime TODAY (08/18) but did get a dose this morning * Placed on Zosyn as above for coverage of pneumonia/bacteremia. Continued on Vanco * Half life reported to be ~2 hours for Cefepime and would hopefully start to see her clearing up tomorrow given combination with Benadryl (although this would be out of system by now) likely caused worsening of the confusion * If no improvement over next 24 hours, will consider IV Steroids and LP on Thursday with panel for possible Limbic encephalitis * Pureed diet per speech but patient not taking in any oral this morning and placed on D5 04/28 @ 80cc/hr x1 L last evening due to lack of intake/NPO until seen by speech * Will continue IVF today and add 20meq KCl @ 80cc/hr for now until taking PO (2) Acute UTI: * Admitted with generalized weakness for the past 5 days -- could also be secondary to progressive small cell lung ca as well (AND ANEMIA) * Completed a course of IV antibiotics as above for Klebsiella UTI * Repeat UA without signs of infection (3) Gram negative sepsis: * As above (4) Non-small cell lung cancer (NSCLC): * hx of, no longer getting chemo. also with large B cell Hodgkin * Discussed with oncology -- no more chemo as patient not able to tolerate and had been just routine follow up for symptoms with next appointment next week * She appears likely a candidate at least for palliative care -- wanting to hold off for now (5) HTN (hypertension): * Continue metoprolol tartrate -> consider switch to succinate * BP elevated to 168/71 * Did not get AM metoprolol * Asked RN to administer IV lopressor * Will repeat dose this evening if patient still no longer able to take PO * * * however she did not get her morning medications we will ask nursing to administer her metoprolol dose for this evening or early * Hydralazine IV as needed (6) Ischemic cardiomyopathy: * Continue usual home medication regimen with metoprolol tartrate 75mg BID, ISMN, ranexa 60mg HS, simvastatin 40mg HS. ASA d/c'd due to +FOCB and likely gastritis from chronic prednisone therapy * No chest pain. Troponin < 0.015 (7) COPD (chronic obstructive pulmonary disease): * breathing well at the moment, no distress * Mucinex and benzonatate as needed (has not gotten) * 98% on room air (8) Sjogren's disease: * Continue low dose prednisone and cevimeline. * Symptoms at baseline. * May need stress dose steroids if she becomes hypotensive but will hold off for now (see above #1 will possibly need IV steroids for encephalitis if not improved after d/c of Cefepime today) (9) Severe protein-calorie malnutrition: * as stated above, she has a poor appetite * nutritional supp (10) Underweight: * may benefit from a nutrition consult -- ordered * Her BMI is 17 * Though she reports not losing much weight, she appears very brittle (11) Fever: * As above, repeat blood cultures, UA, chest x-ray, Lyme, anaplasmosis, and will add on a repeat Covid * C. difficile is negative yesterday and only had 2 loose stools. Stool cultures added * Does have port in place * Blood cultures from admission are negative but were drawn after antibiotics were started * UTI since admission has been adequately treated and is most likely not from this organism. Repeat UA without evidence of infection * Could also consider DVT although no signs and symptoms of this other than fever --ultrasound of bilateral lower extremities negative for DVT (12) Anemia: * Microcytic * MCV 79.3 -- hx microcytic anemia but prior MCV >80. h/h * Will add fecal occult -- + and GI consulted as above * Continue PPI as above but increased to BID * GI consulted and recommended stopping her aspirin which was done day before * Prior iron, 17, trans % sat low 6, ferritin 498, transferrin 213 and received IV Venofer x 1 on 03/12 and recommended continued supplementation at discharge but is not on medications for this at this time * Studies added this admission : Iron 19, Transferrin 195, Trans % sat 7 --> LOW. TIBC 250 wnl, ferritin 103 wnl. * --> Ferrous sulfate PO BID once taking PO (would hold off on IV Venofer until Bcx negative for at least 48 hours). Initially ordered morning 08/17 as bcx NGTD however discontinued/stopped order given elevated temp as above * h/h stable 9.4/29.7 and has been on continued IVF since last evening. MCV 79.8 --> could have Venofer infusions with [facility] outpatient if needed/unable to tolerate PO unless bacteremic Continue to monitor blood counts (13) Glaucoma: * S/P surgery * on prednisolone eye drops. * ofloxacin continued * --> will need rescheduled f/u as patient now staying (14) Diarrhea: * -- reported, improved * will check c.diff -- NEGATIVE * Imodium prn * +Fecal occult * GI consulted -- recs stopping ASA, not candidate for scope * Monitor blood counts (15) GERD (gastroesophageal reflux disease): * Continue protonix 40mg daily but increase to twice daily as above (16) Immune deficiency disorder: * home meds -- Hizentra injections as an outpatient weekly on Fridays --> discussed with pharmacist Nicole and after discussion given patient has been administers this and is more familiar with the drug arrangements were made for him to bring this in this evening for her infusion and was able to stay with her during this time * --> Administered dose of Hizentra evening 08/18 by her who was allowed to come in for administration * is also on chronic prednisone daily - no s/sx adrenal crisis at this time but consider need for stress dose steroids if becomes hypotensive or symptomatic DVT Prophylaxis * Heparin SQ while inpatient Dispo: continued inpatient stay Admission and Anticipated Discharge Date Admission Date: August 14, 2020 Supervising Physician Co-Signing Physician Notes CHARLES Supervision Note: I did not personally see or examine the patient today, but I verified all abraham points of CHARLES Alexis's assessment and plan with the following exceptions/additions: None Subjective Patient evaluated around lunch. Still about the same. Unable to answer much ROS. Did not take her medications this morning due to difficulty with administration and pocketing reported and was given a dose of IV lopressor for BP/HR control and has been NSR on monitor 70-low 100s. Did shake her head no at pain but appears to want to answer questions but difficulty with expressing. NUrisng has gotten up and walked without issues however patient not able to follow much in the way of commands. Tremors still noted. Neuro seen this morning. UNlikely Benadryl but did discuss possible Cefepime reaction with neurotoxicity and asked if that would possibly be culprit. Possible. He ordered 1gm Keppra for possible subclinical seizures but would possibly consider LP on Thursday +/- high dose steroids and immunoglobulin therapy if needed for possible paraneoplastic process. Review of Systems Review of Systems: All systems reviewed & are unremarkable except as noted in HPI & below Physical Exam Physical Exam: Patient is a 75-year-old female chronically ill-appearing, frail appearing, was found sitting up in chair, no acute distress noted. Generalized flushing. Flat affect staring forward. At times was able to answer with one-word responses and at other times appeared to have difficulty with word finding and not able to respond. Still with myoclonic type movement/tremor. Opens eyes. Slow movements. Not agitated. ENMT: Does track with eyes at times and others not. EOMI. No nystagmus noted. slightly dry mm, no tracheal deviation. able to open her mouth on command for me but then quickly closed and would not repeat. Respiratory: not tachypneic. Stable on room air SpO2 98%. Bibasilar crackles as well as right upper posterior with bronchial breath sounds. No wheezing appreciated Chest with left port present, no erythema or drainage noted Cardiovascular: Heart rate 80 bpm, regular. No murmur appreciated. She did have edema of her lower extremities 1+ right greater than left. Noted chronic venous stasis changes. No obvious lesions or drainage noted to skin. Gastrointestinal: Positive bowel sounds in 4 quadrants, soft, nontender without hepatosplenomegaly appreciated Results & Data Results & Data ([facility]) Vital Signs (Past 12 Hours) Vital Signs Temp Pulse Pulse Resp BP Pulse Ox 08/18/20 07:40 96 H 08/18/20 07:37 36.7 C 81 20 161/93 H 95 08/18/20 04:06 36.9 C 89 20 157/75 H 95 08/18/20 00:00 75 08/17/20 23:31 36.3 C L 75 18 148/87 H 92 Laboratory Results 08/18/20 08/18/20 08/18/20 Range/Units 05:38 05:38 05:38 WBC 8.03 (4.8-10.8) K/uL RBC 3.72 L (4.2-5.4) M/uL Hgb 9.4 L (12.0-16.0) g/dL Hct 29.7 L (37-47) % MCV 79.8 L (80-100) fL MCH 25.3 (25-34) pg MCHC 31.6 L (32-36) g/dL RDW Std Deviation 51.4 H (36.4-46.3) fL RDW Coeff of Marlene 17.6 H (11.5-14.5) % Plt Count 152 (130-400) K/uL MPV 9.2 (7.4-10.4) fL Immature Gran % (Auto) 0.2 % Neut % (Auto) 66.1 % Lymph % (Auto) 22.8 % [place] % (Auto) 8.7 % Eos % (Auto) 2.1 % Baso % (Auto) 0.1 % Neut # (Auto) 5.30 (1.4-6.5) K/uL Lymph # (Auto) 1.83 (1.2-3.4) K/uL [place] # (Auto) 0.70 H (0.11-0.59) K/uL Eos # (Auto) 0.17 (0-0.5) K/uL Baso # (Auto) 0.01 (0-0.2) K/uL Immature Gran # (Auto) 0.02 (0.00-0.02) K/uL PT (9.0-12.0) Seconds INR (0.9-1.1) APTT (21.0-31.0) Seconds PTT Ratio Sodium 137 (136-145) mmol/L Potassium 4.0 D (3.5-5.1) mmol/L Chloride 108 H (98-107) mmol/L Carbon Dioxide 22 (21-32) mmol/L Anion Gap 7.0 (3-11) BUN 20 H (7-18) mg/dl Creatinine 0.63 (0.6-1.2) mg/dl Est Cr Clr Drug Dosing 45.0 ml/min Est GFR ( Amer) 101.0 Est GFR (Non-Af Amer) 87.1 BUN/Creatinine Ratio 32.3 H (10-20) Glucose 89 (70-99) mg/dl POC Glucose (70-99) mg/dl Estimat Average Glucose 123 mg/dl Hemoglobin A1c 5.9 H (4.5-5.6) % Lactate (0.4-2.0) mmol/L Calcium 8.1 L (8.5-10.1) mg/dl Magnesium (1.8-2.4) mg/dl Total Bilirubin 0.6 (0.2-1) mg/dl AST 27 (15-37) U/L ALT 21 (12-78) U/L Alkaline Phosphatase 117 (45-117) U/L Ammonia (11-32) umol/L Troponin I (0-0.045) ng/ml Total Protein 6.4 (6.4-8.2) gm/dl Albumin 2.0 L (3.4-5.0) gm/dl Globulin 4.4 H (2.5-4.0) gm/dl Albumin/Globulin Ratio 0.5 L (0.9-2) Triglycerides 160 H (0-150) mg/dl Cholesterol 72 (0-200) mg/dl LDL Cholesterol, Calc 24 mg/dl VLDL Cholesterol, Calc 32 mg/dl HDL Cholesterol 16 mg/dl Cholesterol/HDL Ratio 5 Blood Type Antibody Screen 08/17/20 08/17/20 08/17/20 Range/Units 14:42 11:22 11:22 WBC (4.8-10.8) K/uL RBC (4.2-5.4) M/uL Hgb (12.0-16.0) g/dL Hct (37-47) % MCV (80-100) fL MCH (25-34) pg MCHC (32-36) g/dL RDW Std Deviation (36.4-46.3) fL RDW Coeff of Marlene (11.5-14.5) % Plt Count (130-400) K/uL MPV (7.4-10.4) fL Immature Gran % (Auto) % Neut % (Auto) % Lymph % (Auto) % [place] % (Auto) % Eos % (Auto) % Baso % (Auto) % Neut # (Auto) (1.4-6.5) K/uL Lymph # (Auto) (1.2-3.4) K/uL [place] # (Auto) (0.11-0.59) K/uL Eos # (Auto) (0-0.5) K/uL Baso # (Auto) (0-0.2) K/uL Immature Gran # (Auto) (0.00-0.02) K/uL PT 10.3 (9.0-12.0) Seconds INR 1.0 (0.9-1.1) APTT 47.3 H* (21.0-31.0) Seconds PTT Ratio 1.8 Sodium 137 (136-145) mmol/L Potassium 4.8 (3.5-5.1) mmol/L Chloride 110 H (98-107) mmol/L Carbon Dioxide 22 (21-32) mmol/L Anion Gap 5.0 (3-11) BUN 27 H (7-18) mg/dl Creatinine 0.75 (0.6-1.2) mg/dl Est Cr Clr Drug Dosing 37.9 ml/min Est GFR ( Amer) 89.7 Est GFR (Non-Af Amer) 77.4 BUN/Creatinine Ratio 36.0 H (10-20) Glucose 104 H (70-99) mg/dl POC Glucose (70-99) mg/dl Estimat Average Glucose mg/dl Hemoglobin A1c (4.5-5.6) % Lactate (0.4-2.0) mmol/L Calcium 8.1 L (8.5-10.1) mg/dl Magnesium 2.2 (1.8-2.4) mg/dl Total Bilirubin 0.6 (0.2-1) mg/dl AST 29 (15-37) U/L ALT 24 (12-78) U/L Alkaline Phosphatase 116 (45-117) U/L Ammonia < 10.0 L (11-32) umol/L Troponin I < 0.015 (0-0.045) ng/ml Total Protein 6.6 (6.4-8.2) gm/dl Albumin 2.0 L (3.4-5.0) gm/dl Globulin 4.6 H (2.5-4.0) gm/dl Albumin/Globulin Ratio 0.4 L (0.9-2) Triglycerides (0-150) mg/dl Cholesterol (0-200) mg/dl LDL Cholesterol, Calc mg/dl VLDL Cholesterol, Calc mg/dl HDL Cholesterol mg/dl Cholesterol/HDL Ratio Blood Type Antibody Screen 08/17/20 08/17/20 08/17/20 Range/Units 11:22 11:22 11:22 WBC 10.26 (4.8-10.8) K/uL RBC 3.73 L (4.2-5.4) M/uL Hgb 9.7 L (12.0-16.0) g/dL Hct 29.5 L (37-47) % MCV 79.1 L (80-100) fL MCH 26.0 (25-34) pg MCHC 32.9 (32-36) g/dL RDW Std Deviation 50.4 H (36.4-46.3) fL RDW Coeff of Marlene 17.6 H (11.5-14.5) % Plt Count 139 (130-400) K/uL MPV 9.1 (7.4-10.4) fL Immature Gran % (Auto) 0.2 % Neut % (Auto) 78.6 % Lymph % (Auto) 11.8 % [place] % (Auto) 8.8 % Eos % (Auto) 0.5 % Baso % (Auto) 0.1 % Neut # (Auto) 8.07 H (1.4-6.5) K/uL Lymph # (Auto) 1.21 (1.2-3.4) K/uL [place] # (Auto) 0.90 H (0.11-0.59) K/uL Eos # (Auto) 0.05 (0-0.5) K/uL Baso # (Auto) 0.01 (0-0.2) K/uL Immature Gran # (Auto) 0.02 (0.00-0.02) K/uL PT (9.0-12.0) Seconds INR (0.9-1.1) APTT (21.0-31.0) Seconds PTT Ratio Sodium (136-145) mmol/L Potassium (3.5-5.1) mmol/L Chloride (98-107) mmol/L Carbon Dioxide (21-32) mmol/L Anion Gap (3-11) BUN (7-18) mg/dl Creatinine (0.6-1.2) mg/dl Est Cr Clr Drug Dosing ml/min Est GFR ( Amer) Est GFR (Non-Af Amer) BUN/Creatinine Ratio (10-20) Glucose (70-99) mg/dl POC Glucose (70-99) mg/dl Estimat Average Glucose mg/dl Hemoglobin A1c (4.5-5.6) % Lactate 0.9 (0.4-2.0) mmol/L Calcium (8.5-10.1) mg/dl Magnesium (1.8-2.4) mg/dl Total Bilirubin (0.2-1) mg/dl AST (15-37) U/L ALT (12-78) U/L Alkaline Phosphatase (45-117) U/L Ammonia (11-32) umol/L Troponin I (0-0.045) ng/ml Total Protein (6.4-8.2) gm/dl Albumin (3.4-5.0) gm/dl Globulin (2.5-4.0) gm/dl Albumin/Globulin Ratio (0.9-2) Triglycerides (0-150) mg/dl Cholesterol (0-200) mg/dl LDL Cholesterol, Calc mg/dl VLDL Cholesterol, Calc mg/dl HDL Cholesterol mg/dl Cholesterol/HDL Ratio Blood Type A Positive Antibody Screen NEGATIVE 08/17/20 Range/Units 09:27 WBC (4.8-10.8) K/uL RBC (4.2-5.4) M/uL Hgb (12.0-16.0) g/dL Hct (37-47) % MCV (80-100) fL MCH (25-34) pg MCHC (32-36) g/dL RDW Std Deviation (36.4-46.3) fL RDW Coeff of Marlene (11.5-14.5) % Plt Count (130-400) K/uL MPV (7.4-10.4) fL Immature Gran % (Auto) % Neut % (Auto) % Lymph % (Auto) % [place] % (Auto) % Eos % (Auto) % Baso % (Auto) % Neut # (Auto) (1.4-6.5) K/uL Lymph # (Auto) (1.2-3.4) K/uL [place] # (Auto) (0.11-0.59) K/uL Eos # (Auto) (0-0.5) K/uL Baso # (Auto) (0-0.2) K/uL Immature Gran # (Auto) (0.00-0.02) K/uL PT (9.0-12.0) Seconds INR (0.9-1.1) APTT (21.0-31.0) Seconds PTT Ratio Sodium (136-145) mmol/L Potassium (3.5-5.1) mmol/L Chloride (98-107) mmol/L Carbon Dioxide (21-32) mmol/L Anion Gap (3-11) BUN (7-18) mg/dl Creatinine (0.6-1.2) mg/dl Est Cr Clr Drug Dosing ml/min Est GFR ( Amer) Est GFR (Non-Af Amer) BUN/Creatinine Ratio (10-20) Glucose (70-99) mg/dl POC Glucose 107 H (70-99) mg/dl Estimat Average Glucose mg/dl Hemoglobin A1c (4.5-5.6) % Lactate (0.4-2.0) mmol/L Calcium (8.5-10.1) mg/dl Magnesium (1.8-2.4) mg/dl Total Bilirubin (0.2-1) mg/dl AST (15-37) U/L ALT (12-78) U/L Alkaline Phosphatase (45-117) U/L Ammonia (11-32) umol/L Troponin I (0-0.045) ng/ml Total Protein (6.4-8.2) gm/dl Albumin (3.4-5.0) gm/dl Globulin (2.5-4.0) gm/dl Albumin/Globulin Ratio (0.9-2) Triglycerides (0-150) mg/dl Cholesterol (0-200) mg/dl LDL Cholesterol, Calc mg/dl VLDL Cholesterol, Calc mg/dl HDL Cholesterol mg/dl Cholesterol/HDL Ratio Blood Type Antibody Screen Diagnostic Findings Head CT 08/17/20 09:07 CT SCAN OF THE BRAIN WITHOUT IV CONTRAST CLINICAL HISTORY: Strokelike symptoms. Change in mental status. COMPARISON STUDY: CT of the brain dated 08/13/2020. TECHNIQUE: Unenhanced axial CT scan of the brain is performed from the vertex to the skull base. A dose lowering technique was utilized adhering to the principles of ALARA. CT DOSE: 537.48 mGy.cm FINDINGS: Brain parenchyma: There are age-related involutional changes noting mild subcortical and periventricular microangiopathic change. There is no hemorrhage, mass effect, or evidence of acute territorial ischemia by CT criteria. Ibarra- white matter differentiation is preserved. No extra-axial fluid collection is seen. Ventricles, sulci, cisterns: Prominent secondary to involutional change. Intracranial vasculature: There is atherosclerotic calcification of the cavernous carotid and vertebral arteries. Calvarium: Unremarkable. Sinuses and mastoids: The visualized paranasal sinuses are clear. The mastoid air cells are well pneumatized. Orbits: The bony orbits are grossly intact. There are bilateral ocular lens implants. IMPRESSION: There is no hemorrhage, mass effect, or evidence of acute territorial ischemia by CT criteria. ACT 112: Negative or not required by law. Electronically signed by: Han Bolanos M.D. 08/17/2020 9:41 AM Head CTA 08/17/20 09:37 CTA ANGIOGRAPHY OF THE HEAD CLINICAL HISTORY: Stroke Like Symptoms COMPARISON STUDY: Head CT and MRI of the brain performed earlier today. TECHNIQUE: Helical axial images of the head were obtained following uneventful intravenous administration of 113 cc of Optiray. Sagittal and coronal reconstructions were viewed as well as maximal intensity projections on an independent 3-D workstation. Automated exposure control was utilized for the study. A dose lowering technique was utilized adhering to the principles of ALARA. CT DOSE: 241.22 mGy.cm FINDINGS: No acute intracranial hemorrhage, midline shift or mass effect is present. Ventricular system is normal. Basal cisterns are patent. There are no extra axial collections. The bilateral M1, M2, A1 and A2 segments are patent. The posterior circulation is intact. There is moderate calcified plaque within the bilateral cavernous carotids without significant stenosis. There is no central vessel occlusion. No intracranial aneurysm or dissection. IMPRESSION: No central vessel occlusion. No intracranial aneurysm. ACT 112: Negative or not required by law. Electronically signed by: Remington Melvin M.D. 08/17/2020 6:04 PM Neck CTA 08/17/20 09:37 CT ANGIOGRAPHY OF THE NECK WITH CONTRAST CLINICAL HISTORY: Stroke Like Symptoms COMPARISON STUDY: Carotid ultrasound August 10, 2017. Technique: CT angiography of the carotid and vertebral arteries was obtained using Optiray and 3D reconstruction on an independent workstation. NASCET criteria was utilized. Automated exposure control was utilized for the study. A dose lowering technique was utilized adhering to the principles of ALARA. Findings: Right upper lobe mass and pulmonary nodules are partially imaged on this exam. These are better depicted on chest CT of August 13, 2020. Note is made of extensive contrast within venous collaterals. The bilateral common carotid, cervical internal carotid and vertebral arteries are patent. No stenosis within the vessels of the neck is noted. There is no dissection. No cervical lymphadenopathy is present. No cervical spine fracture is noted. No suspicious lesions are identified within visualized skeletal structures. The epiglottis is normal. Venous gas is noted. IMPRESSION: 1. No stenosis or dissection within the major vessels of the neck. 2. Partially visualized right upper lobe mass and numerous pulmonary nodules which are better depicted on chest CT of August 13, 2020. 3. Extensive contrast within venous collaterals which raises the possibility of central venous stenosis. ACT 112: Negative or not required by law. Electronically signed by: Remington Melvin M.D. 08/17/2020 6:11 PM Brain MRI 08/17/20 09:41 MRI OF THE BRAIN WITHOUT AND WITH IV CONTRAST CLINICAL HISTORY: Acute change in mental status. Right-sided weakness. Possible stroke. HISTORY OF LUNG GASTRIC CARCINOMA. HISTORY OF LYMPHOMA. COMPARISON STUDY: Noncontrast head CT dated 08/17/2020, MRI the brain dated 06/29/2018 TECHNIQUE: MRI of the brain was performed from the vertex to the skull base utilizing various T1 and T2 weighted sequences. Following the IV administration of 2.5 mL of Gadavist contrast, additional enhanced images were obtained. FINDINGS: Sagittal T1, axial diffusion, proton density and T2 weighted axial, coronal FLAIR, and pre and post axial T1-weighted images were acquired. These were supplemented with post gadolinium coronal T1 weighted images. No intra or extra-axial mass lesions are visualized. Axial diffusion-weighted images reveal no evidence of acute or subacute infarction. There is no evidence of ventricular dilatation. Proton density T2-weighted and FLAIR images reveal scattered foci of increased T2 signal within the white matter, likely on a small vessel basis. There are no abnormal flow voids. Gradient echo images demonstrate evidence for a 3 mm susceptibility artifact within the left medial temporal lobe, likely secondary to a small calcification or prior tiny hemorrhage. There is no evidence of pathologic enhancement. IMPRESSION: 1. No acute intracranial findings 2. No evidence of intracranial mass 2. No evidence of acute or subacute infarction ACT 112: Negative or not required by law. Electronically signed by: Jose Jackson M.D. 08/17/2020 2:29 PM Venous Doppler Study 08/17/20 10:30 BILATERAL LOWER EXTREMITY VENOUS DOPPLER HISTORY: f/o DVT in cancer pt with fever COMPARISON STUDY: None. FINDINGS: There is normal compressibility, flow, and augmentation within the bilateral lower extremity deep venous systems. IMPRESSION: No DVT within the right or left lower extremity. ACT 112: Negative or not required by law. Electronically signed by: Bucky Mclain M.D. 08/17/2020 2:29 PM PG Care Time/CCT Total # of Minutes Spent Total Time Spent with Patient: Total time spent is greater than 50% in coordination of care (as documented) at patient's floor/unit and/or counseling patient: Coding Level of Care Code 68168 Subseq Hosp Care Lvl 3 Diagnoses Encephalopathy G93.40 Acute UTI N39.0 Gram negative sepsis A41.50 Non-small cell lung cancer (NSCLC) C34.91 Laterality: right HTN (hypertension) I10 Ischemic cardiomyopathy I25.5 COPD (chronic obstructive pulmonary disease) J44.0 COPD type: COPD with acute lower respiratory infection Sjogren's disease M35.00 Severe protein-calorie malnutrition E43 Underweight R63.6 Fever R50.9 Anemia D64.9 Anemia type: unspecified type Glaucoma H40.9 Diarrhea R19.7 GERD (gastroesophageal reflux disease) K21.9 Immune deficiency disorder D84.9 (1) Anemia Anemia type: unspecified type Qualified Code(s): D64.9 - Anemia, unspecified (2) Non-small cell lung cancer (NSCLC) Laterality: right Qualified Code(s): C34.91 - Malignant neoplasm of unsp ecified part of right bronchus or lung (3) COPD (chronic obstructive pulmonary disease) COPD type: COPD with acute lower respiratory infection Qualified Code(s): J44.0 - Chronic obstructive pulmonary disease with acute lower respiratory infection
[2020-08-18] MEDS ORDERED: LANSOPRAZOLE 30 MG SOLTAB PO SCH (09:00)
--- NOTE | 2020-08-18 09:27 | Neurology Progress Note ---
Date of Service August 18, 2020 Assessment & Plan (1) Encephalopathy: Persistent encephalopathy. Patient appears abulic. Onset acute to subacute and occurring in the context of confusion, weakness, possible UTI, metastatic nonsmall cell lung carcinoma. I had previously considered the possi bility of a her encephalopathy was related to diphenhydramine administration. However, the scenario seems less likely at this point in time given her persistent encephalopathy. Although yesterday's EEG did not reveal any epileptiform abnormalities, subclinical status epilepticus may not be completely excluded. Furthermore, a paraneoplastic encephalitis occurring in the context of malignancy is also possible. At this point, I would recommend administering a loading dose of Keppra, 1000 mg IV, continue with a maintenance dose of 500 mg IV every 12 hours. I will order a follow-up EEG as well. 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 Patient would also need a lumbar puncture completed with a specific paraneoplastic autoimmune encephalitis panel. The LP could be completed on Thursday in radiology under fluoroscopy. Admission and Anticipated Discharge Date Admission Date: August 14, 2020 Subjective Follow-up for encephalopathy The patient remains considerably encephalopathic or altered this morning. She is sitting up on the edge of the bed, nonverbal, mildly tremulous. She will track the examiner. Her movements are very slow. She does not really follow commands and appears generally nonagitated. Discussed with nursing at bedside this morning. Patient has not had any witnessed seizures or convulsive activity. No observed episodes of syncope. No falls. As indicated in yesterday's addendum, this patient's EEG revealed generalized 4-1/2 to 6 Hz slowing and occasional triphasic waves suggestive of a moderate nonspecific encephalopathy. MRI of the brain was negative for acute or subacute stroke. There was an incidental 3 mm focus of susceptibility artifact within the left medial temporal lobe likely related to a small calcification or prior tiny hemorrhage. CTA of the neck was negative for stenosis or dissection within the major vessels of the neck. Extensive venous collaterals noted in the context of this patient's right upper lobe mass raising the possibility of central venous stenosis noted. CT of the head was negative for central vessel occlusion or intracranial aneurysm. Review of Systems Review of Systems: Unobtainable due to cognitive status Results & Data ([facility]) Vital Signs (Past 12 Hours) Vital Signs Temp Pulse Pulse Resp BP Pulse Ox 08/18/20 07:40 96 H 08/18/20 07:37 36.7 C 81 20 161/93 H 95 08/18/20 04:06 36.9 C 89 20 157/75 H 95 08/18/20 00:00 75 08/17/20 23:31 36.3 C L 75 18 148/87 H 92 Laboratory Results WBC 8.03, hemoglobin 9.4, hematocrit 29.7, platelet count 152, sodium 137, potassium 4.0, BUN 20, creatinine 0.63, glucose 89, calcium 8.1, AST 27, ALT 21, ammonia yesterday less than 10.0 Diagnostic Findings Neuro imaging and EEG results are as described in subjective. Exam (Neuro) Physical Exam: Pertinent exam findings described in subjective. Coding Level of Care Code 61482 Subseq Hosp Care Lvl 3 Diagnoses Encephalopathy G93.40
[2020-08-18] MEDS ORDERED: PIPERACILL/TAZOBAC CONSULT ACTIVE PRN (09:59)
[2020-08-18] MEDS ORDERED: PIPERACILLIN/TAZOBACTAM 4.5 GM in DEXTROSE 5% 100 ML IV STA (09:59)
[2020-08-18] MEDS: prednisoLONE acetate 1% OP SUSP 5 ML BTL OPR SCH (10:00)
[2020-08-18] MEDS: prednisoLONE acetate 1% OP SUSP 5 ML BTL OPL SCH ×3 (10:00→21:26)
[2020-08-18] MEDS: CALCIUM 600MG + VIT D 400 IU TAB PO SCH ×2 (10:01→17:17)
[2020-08-18] MEDS: POTASSIUM CHLORIDE 10 MEQ TABCR PO SCH ×3 (10:01→17:17)
[2020-08-18] MEDS: CEVIMELINE HCL PO SCH ×3 (10:01→17:17)
[2020-08-18] MEDS: FERROUS SULFATE 325 MG TAB PO SCH ×2 (10:01→17:17)
[2020-08-18] MEDS: CEROVITE ADV FORMULA TAB PO SCH (10:02)
[2020-08-18] MEDS: MAGNESIUM OXIDE 400 MG TAB PO SCH (10:02)
[2020-08-18] MEDS: METOPROLOL TARTRATE 25 MG TAB PO SCH ×2 (10:02→21:22)
[2020-08-18] MEDS: predniSONE 1 MG TAB PO SCH (10:02)
[2020-08-18] MEDS: ISOSORBIDE MONO EXTENDED REL 60 MG TABCR PO SCH (10:02)
[2020-08-18] MEDS: RANOLAZINE 500 MG ER TAB PO SCH ×2 (10:03→21:26)
[2020-08-18] MEDS ORDERED: levETIRAcetam 1,000 MG in 0.9 % SODIUM CHLORIDE 100 ML IV ONE (10:15)
[2020-08-18] MEDS ORDERED: PIPERACILLIN/TAZOBACTAM 3.375 GM in DEXTROSE 5% 100 ML IV ONE (10:30)
[2020-08-18] MEDS: METOPROLOL TARTRATE 1 MG/ML VIAL IV PRN (11:06)
[2020-08-18] MEDS: HEPARIN SOD 5,000 UNIT/0.5 ML VIAL SQ SCH ×2 (11:14→23:03)
[2020-08-18] MEDS: HEPARIN 100 UNIT/ML 5ML FLUSH FLUSH PRN ×2 (12:57→23:13)
[2020-08-18] MEDS ORDERED: THIAMINE HCL 200 MG in SODIUM CHLORIDE 0.9% 50 ML IV ONE (14:00)
[2020-08-18] MEDS: D5W AND 1/2NSS + 20MEQ KCL 20 MEQ/1,000 ML BAG IV SCH (15:45)
[2020-08-18] MEDS: PIPERACILLIN/TAZOBACTAM 3.375 GM in DEXTROSE 5% 100 ML IV SCH ×2 (15:45→23:47)
[2020-08-18] MEDS ORDERED: HYDROCORTISONE SOD 50 MG in SYRINGE 0 ML IV ONE (16:00)
[2020-08-18] MEDS: RALOXIFENE HCL 60 MG TAB PO SCH (17:17)
[2020-08-18] MEDS ORDERED: VANCOMYCIN TROUGH ONE (19:30)
[2020-08-18] MEDS: SIMVASTATIN 40 MG TAB PO SCH (21:26)
[2020-08-18] MEDS: PANTOprazole 40 MG in SYRINGE 0 ML IV SCH (21:26)
[2020-08-18] MEDS: levETIRAcetam 500 MG in 0.9 % SODIUM CHLORIDE 100 ML IV SCH (21:32)
[2020-08-19] MEDS: D5W AND 1/2NSS + 20MEQ KCL 20 MEQ/1,000 ML BAG IV SCH ×2 (04:21→16:58)
[2020-08-19] MEDS ORDERED: METOPROLOL TARTRATE 1 MG/ML VIAL IV STA (07:39)
--- NOTE | 2020-08-19 07:43 | Hospitalist Progress Note ---
Date of Service August 19, 2020 Assessment & Plan (1) Encephalopathy: Patient initially admitted on 08/13/2020 with 5 days of weakness and worsening confusion by her , admitted with sepsis secondary to gram negative bacilli UTI, Klebsiella She was found to have urinary tract infection -- 1x dose Ceftriaxone in ER Continued on Cefepime 08/13 given fever 39.2C however blood cultures were not drawn until after this was started and she had a repeat temperature Patient had been doing well until AM 08/17 where she was increasingly confused and not able to commands and stroke alert was called. Have been getting inconsistent NIHSS and Neurology consulted Imaging negative for acute CVA Had been given 3 doses Benadryl prior to AM of confusion and this was stopped and patient continued with confusion EEG with encephalopathy but no seziure activity Neurology started on Keppra 08/18 for possible subclinical seizures, but made no difference * Blood cultures from 08/14 and 08/16 still without growth to date -- follow * Still with confusion and abnormal NIHSS * Possible neuroendocrine and could consider IV steroids +/- IVIG, however she already receives Hizentra which is SQ Ig Also considering possible CEFEPIME as culprit for possible severe neurotoxicity which has been reported with use: * --> Per UptoDate: "severe neurotoxicity has been reported with cefepime use, including encephalopathy, aphasia, myoclonus, opsoclonus, seizure, and nonconvulsive status epilepticus (Mari 2019, Isitan 2017, John 2019, Estela 2001, Chuy 2019, Bello 2019)" * Median onset 2-4 days from initiation (she was started on 08/14 and symptoms began 08/16 evening into morning of 08/17 as above) * STOPPED Cefepime (08/18) Given dose of hydrocortisone 08/18 Currently 24 hours post d/c Cefepime and making SLIGHT IMPROVEMENT this am 11am, however was started on Methylprednisolone 1gm IV daily for 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 Speech on consult IVF continued Lactic elevated 3.8 -- Bolus ordered and repeat pending Remains on maintenance fluids due to intake/dehydration Acidotic on labs with bicarb 18, had had diarrhea. Cdiff ordered/ stool cx pending from 08/18 ABG with pH 7.49, pCO2 23 (hyperventilation from fevers?), pO2 68, HCO3 17 Bicarb IV x 1 today Also ordered CTAP to further look for sources of infection NPO and will get LP in AM. Labs ordered Neuro continues to follow Continue to monitor labs/supportive care as needed (2) Acute UTI: * Admitted with generalized weakness for the past 5 days -- could also be secondary to progressive small cell lung ca as well (AND ANEMIA) * Completed a course of IV antibiotics as above for Klebsiella UTI * Repeat UA without signs of infection (3) Gram negative sepsis: * As above (4) Non-small cell lung cancer (NSCLC): * hx of, no longer getting chemo. also with large B cell Hodgkin * Discussed with oncology -- no more chemo as patient not able to tolerate and had been just routine follow up for symptoms with next appointment next week * She appears likely a candidate at least for palliative care -- wanting to hold off for now -- consider repeat discussion given above pending work-up (5) HTN (hypertension): * Continue metoprolol tartrate -> consider switch to succinate * BP 134/74 but was elevated to systolic 200s today and asked RN to administer lopressor and also available prn (typically on metoprolol tart) * Hydralazine IV as needed (6) Ischemic cardiomyopathy: * Continue usual home medication regimen with metoprolol tartrate 75mg BID, ISMN, ranexa 60mg HS, simvastatin 40mg HS. ASA d/c'd due to +FOCB and likely gastritis from chronic prednisone therapy * No chest pain. Troponin < 0.015 (7) COPD (chronic obstructive pulmonary disease): * breathing well at the moment, no distress * Mucinex and benzonatate as needed (has not gotten) * 98% on room air (8) Sjogren's disease: * Continue low dose prednisone and cevimeline. * Symptoms at baseline. * Steroids as above, IV (9) Severe protein-calorie malnutrition: * as stated above, she has a poor appetite * nutritional supp (10) Underweight: * may benefit from a nutrition consult -- ordered * Her BMI is 17 (11) Fever: * As above, repeat blood cultures, UA, chest x-ray, Lyme, anaplasmosis, and will add on a repeat Covid * C. difficile is negative and only had 2 loose stools previously --> increased BMs over past 2 days. * Stool cultures added , pending * Does have port in place * Blood cultures from admission are negative but were drawn after antibiotics were started * UTI since admission has been adequately treated and is most likely not from this organism. Repeat UA without evidence of infection * Could also consider DVT although no signs and symptoms of this other than fever --ultrasound of bilateral lower extremities negative for DVT (12) Anemia: * Microcytic * MCV 79.3 -- hx microcytic anemia but prior MCV >80. h/h * Will add fecal occult -- + and GI consulted as above * Continue PPI as above but increased to BID * GI consulted and recommended stopping her aspirin which was done day before * Prior iron, 17, trans % sat low 6, ferritin 498, transferrin 213 and received IV Venofer x 1 on 03/12 and recommended continued supplementation at discharge but is not on medications for this at this time * Studies added this admission : Iron 19, Transferrin 195, Trans % sat 7 --> LOW. TIBC 250 wnl, ferritin 103 wnl. * --> Ferrous sulfate PO BID once taking PO (would hold off on IV Venofer until Bcx negative for at least 48 hours). Initially ordered morning 08/17 as bcx NGTD however discontinued/stopped order given elevated temp as above * h/h stable 9.4/29.7 and has been on continued IVF since last evening. MCV 79.8 --> could have Venofer infusions with [facility] outpatient if needed/unable to tolerate PO unless bacteremic Continue to monitor blood counts (13) Glaucoma: * S/P surgery * on prednisolone eye drops. * ofloxacin continued * --> will need rescheduled f/u as patient now staying (14) Diarrhea: * -- reported, improved * will check c.diff -- NEGATIVE * Imodium prn * +Fecal occult * GI consulted -- recs stopping ASA, not candidate for scope * Monitor blood counts (15) GERD (gastroesophageal reflux disease): * Continue protonix 40mg daily but increase to twice daily as above * --> changed to BID IV while NPO (16) Immune deficiency disorder: * home meds -- Hizentra injections as an outpatient weekly on Fridays --> discussed with pharmacist Nicole and after discussion given patient has been administers this and is more familiar with the drug arrangements were made for him to bring this in this evening for her infusion and was able to stay with her during this time * --> Administered dose of Hizentra evening 08/18 by her who was allowed to come in for administration * is also on chronic prednisone daily - no s/sx adrenal crisis at this time but consider need for stress dose steroids if becomes hypotensive or symptomatic DVT Prophylaxis * Heparin SQ while inpatient Dispo: continued inpatient stay LP in AM thursday Admission and Anticipated Discharge Date Admission Date: August 14, 2020 Supervising Physician Co-Signing Physician Notes CHARLES Supervision Note: I did not personally see or examine the patient today, but I verified all abraham points of CHARLES Alexis's assessment and plan with the following exceptions/additions: Pt presented with fevers and UTI, then continnued to have fevers despite appropriate treatment for UTI. Then developed acute encephalopathy, tremors since 08/18. Workup thus far has been unremarkable Could consider West Nile virus encephalitis or other infectious causes, paraneoplastic causes---> plan for LP in AM continue supportive care, substitute IV meds when able to, hold unnecessary po meds Make IV lopressor 5mg IV q6h scheduked while not takin gpo meds -dc IV Keppra as empiric trial did not help as per Neuro note Subjective Patient evaluated this morning. Patient was doing about the same through the morning with regards to lethargy and ability to take anything orally/follow commands. 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 Was also started on Keppra 08/18 for possible subclinical seizures. Cefepime now 24 hours out of her system. Per nursing, within past 20 minutes (11am) patient did perk up a little and was able to get to the bathroom, Still with teeth grinding and oral care difficult at times due to this. Still tremulous with UE primarily. Able to squeeze my hands but did not answer any questions although did follow some commands (take deep breath, etc) for physical exam. Temp 99F today. Already back down. Rash to abdomen/chest improved but still with some increased flushing of her cheeks. Tele with sinus/sinus tach up to 140s and asked nursing to administer IV lopressor now. Review of Systems Review of Systems: Unobtainable due to cognitive status Physical Exam Physical Exam: Patient is a 75-year-old female chronically ill-appearing, frail appearing, was seen sitting on toilet in bathroom, no acute distrss. Flushing of bilateral cheeks but improved erythema to abdomen/trunk and back Flat affect staring forward. At times was able to track with eyes, at other times she closed her eyes. Still with myoclonic type movement/tremor UE and teeth grinding at times. Slowed movements. ABle to squeeze hands bilaterally with equal strength. Not agitated. ENMT: Does track with eyes at times and others not. EOMI. No nystagmus noted. slightly dry mm, no tracheal deviation. able to open her mouth on command for me but then quickly closed and would not repeat. Respiratory: not tachypneic. Stable on room air SpO2 98%. Bibasilar crackles as well as right upper posterior with bronchial breath sounds. No wheezing appreciated Chest with left port present, no erythema or drainage noted Cardiovascular: Heart rate 80 bpm, regular. No murmur appreciated. She did have edema of her lower extremities 1+ right greater than left. Noted chronic venous stasis changes. No obvious lesions or drainage noted to skin. Gastrointestinal: Positive bowel sounds in 4 quadrants, soft, nontender without hepatosplenomegaly appreciated Results & Data Results & Data ([facility]) Vital Signs (Past 12 Hours) Vital Signs Temp Pulse Pulse Resp BP BP Pulse Ox 08/19/20 07:31 36.8 C 67 18 134/74 98 08/19/20 04:00 36.1 C L 103 H 18 163/84 H 99 08/19/20 03:37 95 H 08/18/20 23:00 36.4 C L 74 18 151/70 H 93 Laboratory Results 08/19/20 08/19/20 08/19/20 Range/Units 10:40 09:53 09:32 WBC (4.8-10.8) K/uL RBC (4.2-5.4) M/uL Hgb (12.0-16.0) g/dL Hct (37-47) % MCV (80-100) fL MCH (25-34) pg MCHC (32-36) g/dL RDW Std Deviation (36.4-46.3) fL RDW Coeff of Marlene (11.5-14.5) % Plt Count (130-400) K/uL MPV (7.4-10.4) fL Immature Gran % (Auto) % Neut % (Auto) % Lymph % (Auto) % [place] % (Auto) % Eos % (Auto) % Baso % (Auto) % Neut # (Auto) (1.4-6.5) K/uL Lymph # (Auto) (1.2-3.4) K/uL [place] # (Auto) (0.11-0.59) K/uL Eos # (Auto) (0-0.5) K/uL Baso # (Auto) (0-0.2) K/uL Immature Gran # (Auto) (0.00-0.02) K/uL ABG pH 7.49 H (7.35-7.45) ABG pCO2 23 L (35-46) mmHg ABG pO2 68 L (80-95) mmHg ABG HCO3 17 L (19-24) mmol/L ABG O2 Saturation 94.0 (90-95) % ABG Base Excess -4.6 (-9-1.8) mEq/L Manny Test Pos (Pos) Barometric Pressure 726.9 mm/Hg Oxygen Given ROOM AIR Sodium (136-145) mmol/L Potassium (3.5-5.1) mmol/L Chloride (98-107) mmol/L Carbon Dioxide (21-32) mmol/L Anion Gap (3-11) BUN (7-18) mg/dl Creatinine (0.6-1.2) mg/dl Est Cr Clr Drug Dosing ml/min Est GFR ( Amer) Est GFR (Non-Af Amer) BUN/Creatinine Ratio (10-20) Glucose (70-99) mg/dl Lactate 1.7 (0.4-2.0) mmol/L Calcium (8.5-10.1) mg/dl Magnesium (1.8-2.4) mg/dl Total Bilirubin (0.2-1) mg/dl AST (15-37) U/L ALT (12-78) U/L Alkaline Phosphatase (45-117) U/L Total Protein (6.4-8.2) gm/dl Albumin (3.4-5.0) gm/dl Globulin (2.5-4.0) gm/dl Albumin/Globulin Ratio (0.9-2) Stl C. diff Tox B Gene TNP Vancomycin Trough (See Comment) mcg/ml 08/19/20 08/19/20 08/19/20 Range/Units 08:05 08:05 08:05 WBC 6.59 (4.8-10.8) K/uL RBC 3.44 L (4.2-5.4) M/uL Hgb 8.7 L (12.0-16.0) g/dL Hct 27.6 L (37-47) % MCV 80.2 (80-100) fL MCH 25.3 (25-34) pg MCHC 31.5 L (32-36) g/dL RDW Std Deviation 50.8 H (36.4-46.3) fL RDW Coeff of Marlene 17.7 H (11.5-14.5) % Plt Count 138 (130-400) K/uL MPV 9.3 (7.4-10.4) fL Immature Gran % (Auto) 0.3 % Neut % (Auto) 80.2 % Lymph % (Auto) 12.0 % [place] % (Auto) 6.7 % Eos % (Auto) 0.8 % Baso % (Auto) 0.0 % Neut # (Auto) 5.29 (1.4-6.5) K/uL Lymph # (Auto) 0.79 L (1.2-3.4) K/uL [place] # (Auto) 0.44 (0.11-0.59) K/uL Eos # (Auto) 0.05 (0-0.5) K/uL Baso # (Auto) 0.00 (0-0.2) K/uL Immature Gran # (Auto) 0.02 (0.00-0.02) K/uL ABG pH (7.35-7.45) ABG pCO2 (35-46) mmHg ABG pO2 (80-95) mmHg ABG HCO3 (19-24) mmol/L ABG O2 Saturation (90-95) % ABG Base Excess (-9-1.8) mEq/L Manny Test (Pos) Barometric Pressure mm/Hg Oxygen Given Sodium 137 (136-145) mmol/L Potassium 3.8 (3.5-5.1) mmol/L Chloride 110 H (98-107) mmol/L Carbon Dioxide 19 L (21-32) mmol/L Anion Gap 8.0 (3-11) BUN 12 (7-18) mg/dl Creatinine 0.83 (0.6-1.2) mg/dl Est Cr Clr Drug Dosing 33.9 ml/min Est GFR ( Amer) 79.4 Est GFR (Non-Af Amer) 68.5 BUN/Creatinine Ratio 14.8 (10-20) Glucose 112 H (70-99) mg/dl Lactate 3.8 H* (0.4-2.0) mmol/L Calcium 7.9 L (8.5-10.1) mg/dl Magnesium 1.8 (1.8-2.4) mg/dl Total Bilirubin 0.5 (0.2-1) mg/dl AST 40 H (15-37) U/L ALT 25 (12-78) U/L Alkaline Phosphatase 124 H (45-117) U/L Total Protein 6.1 L (6.4-8.2) gm/dl Albumin 2.0 L (3.4-5.0) gm/dl Globulin 4.1 H (2.5-4.0) gm/dl Albumin/Globulin Ratio 0.5 L (0.9-2) Stl C. diff Tox B Gene Vancomycin Trough (See Comment) mcg/ml 08/18/20 Range/Units 19:17 WBC (4.8-10.8) K/uL RBC (4.2-5.4) M/uL Hgb (12.0-16.0) g/dL Hct (37-47) % MCV (80-100) fL MCH (25-34) pg MCHC (32-36) g/dL RDW Std Deviation (36.4-46.3) fL RDW Coeff of Marlene (11.5-14.5) % Plt Count (130-400) K/uL MPV (7.4-10.4) fL Immature Gran % (Auto) % Neut % (Auto) % Lymph % (Auto) % [place] % (Auto) % Eos % (Auto) % Baso % (Auto) % Neut # (Auto) (1.4-6.5) K/uL Lymph # (Auto) (1.2-3.4) K/uL [place] # (Auto) (0.11-0.59) K/uL Eos # (Auto) (0-0.5) K/uL Baso # (Auto) (0-0.2) K/uL Immature Gran # (Auto) (0.00-0.02) K/uL ABG pH (7.35-7.45) ABG pCO2 (35-46) mmHg ABG pO2 (80-95) mmHg ABG HCO3 (19-24) mmol/L ABG O2 Saturation (90-95) % ABG Base Excess (-9-1.8) mEq/L Manny Test (Pos) Barometric Pressure mm/Hg Oxygen Given Sodium (136-145) mmol/L Potassium (3.5-5.1) mmol/L Chloride (98-107) mmol/L Carbon Dioxide (21-32) mmol/L Anion Gap (3-11) BUN (7-18) mg/dl Creatinine (0.6-1.2) mg/dl Est Cr Clr Drug Dosing ml/min Est GFR ( Amer) Est GFR (Non-Af Amer) BUN/Creatinine Ratio (10-20) Glucose (70-99) mg/dl Lactate (0.4-2.0) mmol/L Calcium (8.5-10.1) mg/dl Magnesium (1.8-2.4) mg/dl Total Bilirubin (0.2-1) mg/dl AST (15-37) U/L ALT (12-78) U/L Alkaline Phosphatase (45-117) U/L Total Protein (6.4-8.2) gm/dl Albumin (3.4-5.0) gm/dl Globulin (2.5-4.0) gm/dl Albumin/Globulin Ratio (0.9-2) Stl C. diff Tox B Gene Vancomycin Trough 11.4 (See Comment) mcg/ml PG Care Time/CCT Total # of Minutes Spent Total Time Spent with Patient: Total time spent is greater than 50% in coordination of care (as documented) at patient's floor/unit and/or counseling patient: Coding Level of Care Code 38476 Subseq Hosp Care Lvl 3 Diagnoses Encephalopathy G93.40 Acute UTI N39.0 Gram negative sepsis A41.50 Non-small cell lung cancer (NSCLC) C34.91 Laterality: right HTN (hypertension) I10 Ischemic cardiomyopathy I25.5 COPD (chronic obstructive pulmonary disease) J44.0 COPD type: COPD with acute lower respiratory infection Sjogren's disease M35.00 Severe protein-calorie malnutrition E43 Underweight R63.6 Fever R50.9 Anemia D64.9 Anemia type: unspecified type Glaucoma H40.9 Diarrhea R19.7 GERD (gastroesophageal reflux disease) K21.9 Immune deficiency disorder D84.9 (1) Anemia Anemia type: unspecified type Qualified Code(s): D64.9 - Anemia, unspecified (2) Non-small cell lung cancer (NSCLC) Laterality: right Qualified Code(s): C34.91 - Malignant neoplasm of unspecified part of right bronchus or lung (3) COPD (chronic obstructive pulmonary disease) COPD type: COPD with acute lower respiratory infection Qualified Code(s): J44.0 - Chronic obstructive pulmonary disease with acute lower respiratory infection
[2020-08-19] MEDS: METOPROLOL TARTRATE 25 MG TAB PO SCH ×2 (08:01→20:51)
[2020-08-19] MEDS: POTASSIUM CHLORIDE 10 MEQ TABCR PO SCH ×3 (08:01→16:58)
[2020-08-19] MEDS: FERROUS SULFATE 325 MG TAB PO SCH ×2 (08:01→16:58)
[2020-08-19] MEDS: CEVIMELINE HCL PO SCH ×3 (08:01→16:58)
[2020-08-19] MEDS: MAGNESIUM OXIDE 400 MG TAB PO SCH (08:01)
[2020-08-19] MEDS: ISOSORBIDE MONO EXTENDED REL 60 MG TABCR PO SCH (08:01)
[2020-08-19] MEDS: CALCIUM 600MG + VIT D 400 IU TAB PO SCH ×2 (08:01→16:58)
[2020-08-19] MEDS: RANOLAZINE 500 MG ER TAB PO SCH ×2 (08:02→20:51)
[2020-08-19] MEDS: predniSONE 1 MG TAB PO SCH (08:02)
[2020-08-19] MEDS: CEROVITE ADV FORMULA TAB PO SCH (08:02)
[2020-08-19] MEDS: prednisoLONE acetate 1% OP SUSP 5 ML BTL OPR SCH (08:05)
[2020-08-19] MEDS: prednisoLONE acetate 1% OP SUSP 5 ML BTL OPL SCH ×3 (08:05→20:49)
[2020-08-19] MEDS: HEPARIN SOD 5,000 UNIT/0.5 ML VIAL SQ SCH ×2 (08:05→20:50)
[2020-08-19] MEDS: PANTOprazole 40 MG in SYRINGE 0 ML IV SCH ×2 (08:05→20:49)
[2020-08-19] MEDS: PIPERACILLIN/TAZOBACTAM 3.375 GM in DEXTROSE 5% 100 ML IV SCH ×3 (08:05→23:56)
[2020-08-19 08:19] LABS: Eosinophils # (auto) 0.05 K/uL (0-0.5); Eosinophils % (auto) 0.8 %; Hematocrit (blood only) 27.6 % (37-47); Hemoglobin 8.7 g/dL (12.0-16.0); Immature Granulocytes # (auto) 0.02 K/uL (0.00-0.02); Immature Granulocytes % (auto) 0.3 %; Lymphocytes # (auto) 0.79 K/uL (1.2-3.4); Mean Corpuscular Hemoglobin 25.3 pg (25-34); Mean Corpuscular Hgb Conc 31.5 g/dL (32-36); Mean Corpuscular Volume 80.2 fL (80-100); Mean Platelet Volume 9.3 fL (7.4-10.4); Monocytes # (auto) 0.44 K/uL (0.11-0.59); Monocytes % (auto) 6.7 %; Neutrophils # (auto) 5.29 K/uL (1.4-6.5); Neutrophils % (auto) 80.2 %; Platelet Count 138 K/uL (130-400); RDW Coefficient of Variation 17.7 % (11.5-14.5); RDW Standard Deviation 50.8 fL (36.4-46.3); Red Blood Count 3.44 M/uL (4.2-5.4); White Blood Count 6.59 K/uL (4.8-10.8)
[2020-08-19 08:42] LABS: Albumin Globulin Ratio 0.5 (0.9-2); BUN Creatinine Ratio 14.8 (10-20); Bilirubin,Total 0.5 mg/dl (0.2-1); Calcium 7.9 mg/dl (8.5-10.1); Creatinine Clr Calc Pharmacy 33.9 ml/min; Est GFR (African American) 79.4; Est GFR (Non-African American) 68.5; Globulin 4.1 gm/dl (2.5-4.0); Magnesium 1.8 mg/dl (1.8-2.4); Potassium 3.8 mmol/L (3.5-5.1); Total Protein 6.1 gm/dl (6.4-8.2)
[2020-08-19] MEDS ORDERED: HYDROCORTISONE SOD 25 MG in SYRINGE 0 ML IV SCH (09:00)
--- NOTE | 2020-08-19 09:14 | Neurology Progress Note ---
Date of Service August 19, 2020 Assessment & Plan (1) Encephalopathy: Persistent encephalopathy. Empiric trial of IV Keppra was not really beneficial and may have resulted in a slight increase in patient's lethargy. Again, no evidence of subclinical seizures on previous EEG. 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 Alternatively, a side effect of cefepime is possible, this antibiotic has been discontinued. As patient's clinical status has not improved, however, I think it would be reasonable to try intravenous methylprednisolone and possibly IVIG for possible paraneoplastic encephalitis. Would start with 1 g of methylprednisolone IV daily, plan for 5 days of treatment depending on clinical response. Would also consider adding IVIG, 400 mg/kg/day for 5 days as well. Would proceed with lumbar puncture in radiology, under fluoroscopy tomorrow. Would need CSF study with cells, protein, glucose, cultures, Gram stain, cryptococcal antigen, etc., in-house viral encephalitis panel, and send out paraneoplastic autoimmune encephalitis panel. Admission and Anticipated Discharge Date Admission Date: August 14, 2020 Subjective Follow-up for encephalopathy The patient remains encephalopathic. She is awake, mildly lethargic, inattentive, nonverbal, tracks the examiner, mildly tremulous, relatively still or immobile but able to lift both upper limbs out of the bed and grasp. Does not really follow commands, however. Patient did receive 1 g of Keppra IV yesterday without much change in her clinical status other than perhaps slightly more lethargy. Previous EEG was suggestive of encephalopathy, however, no epileptiform abnormalities. Repeat EEG pending. Recent brain MRI was negative for acute or subacute process. Incidental 3 mm left medial temporal lobe susceptibility artifact, small calcification versus prior tiny hemorrhage of unlikely clinical significance. Chronic small vessel ischemic change. No abnormal postcontrast enhancement. No imaging findings suggestive of encephalitis or stroke. Cefepime was discontinued yesterday as this antibiotic may be associated with encephalopathy. Review of Systems Review of Systems: Unobtainable due to cognitive status Results & Data ([facility]) Vital Signs (Past 12 Hours) Vital Signs Temp Pulse Pulse Resp BP BP Pulse Ox 08/19/20 07:31 36.8 C 67 18 134/74 98 08/19/20 04:00 36.1 C L 103 H 18 163/84 H 99 08/19/20 03:37 95 H 08/18/20 23:00 36.4 C L 74 18 151/70 H 93 Exam (Neuro) Physical Exam: Pertinent examination findings are as described in subjective Coding Level of Care Code 70687 Subseq Hosp Care Lvl 2 Diagnoses Encephalopathy G93.40
[2020-08-19] MEDS ORDERED: SODIUM CHLORIDE 0.9% 1000ML 500 ML IV ONE (09:16)
[2020-08-19] MEDS ORDERED: OPTIRAY 300 100mL IV ONE (09:40)
--- NOTE | 2020-08-19 09:40 | Pharmacy Report ---
Pharmacy Abx Dose Short Note - Date of Service August 19, 2020 - Assessment & Plan Assessment 75 year old F receiving Vancomycin Day # 2 of antimicrobial therapy. Plan * Checked with provider due to Vancomycin initially being ordered with an empiric indication. She wanted to continue for now. Extended for another 48 hours. Laboratory Tests 08/18/20 19:17 Vancomycin Trough 11.4 Vancomycin * Trough level of 11.4 mcg/mL is subtherapeutic * Change to 750 mg IV every 14 hours * Goal trough level ~ 15 * Trough level ordered for: 08/20/20 @ 1430 Pharmacy will continue to follow and will adjust dose/frequency as necessary. Thank you.
[2020-08-19 09:47] LABS: Allen Test Pos (Pos); Base Excess ABG -4.6 mEq/L (-9-1.8); HCO3 ABG 17 mmol/L (19-24); PCO2 ABG 23 mmHg (35-46); PO2 ABG 68 mmHg (80-95); pH ABG 7.49 (7.35-7.45)
[2020-08-19] MEDS ORDERED: methylPREDNISolone 1,000 MG in DEXTROSE 5% 250 ML IV ONE (10:15)
[2020-08-19] MEDS: levETIRAcetam 500 MG in 0.9 % SODIUM CHLORIDE 100 ML IV SCH ×2 (10:17→21:57)
--- NOTE | 2020-08-19 10:20 | CT Scan Report ---
CT OF THE ABDOMEN AND PELVIS WITH CONTRAST CLINICAL HISTORY: Abdominal pain. Encephalopathy. Lung cancer. COMPARISON STUDY: PET/CT January 10, 2019. CT of the abdomen and pelvis May 09, 2020. TECHNIQUE: Following IV administration of Optiray, axial images of the abdomen and pelvis were obtain ed from the lung bases to the proximal femurs. Images were reviewed in the axial, sagittal, and coron al planes. IV contrast was administered without complication. Automated exposure control was utilize d for the study. A dose lowering technique was utilized adhering to the principles of ALARA. CT DOSE: 264.79 mGy.cm FINDINGS: Multiple nodules within the lower lungs are suboptimally assessed on this exam due to respi ratory motion artifact. Bronchiectasis within the lungs is most evident within the right middle lobe and lingula. The chest is better depicted on recent chest CT of August 13, 2020. Cardiomegaly is noted . Two right hepatic lobe lesions are unchanged from earlier exams. These were shown to likely reflect hemangiomas on an earlier MRI. Biliary ductal dilatation is unchanged and likely related to cholecys tectomy. This exam is compromised by motion artifact. The spleen, adrenal glands and pancreas are unr emarkable. Several mildly enlarged gastrohepatic ligament lymph nodes are noted. The largest lymph no de measures 1.5 x 1.4 cm. This is increased in size since prior examination. There is no hydronephros is. Suspected renal cyst within lower pole the right kidney is noted. There is no evidence for a kim l obstruction. A small amount of ascites is noted. No bowel wall thickening is identified. There is m ild anasarca. Fluid in the appendix are noted within a right femoral hernia. This is unchanged. Major vasculature is patent. There is extensive plaque of the abdominal aorta. No suspicious lesions are i dentified within the visualized skeletal structures. IMPRESSION: 1. No bowel obstruction. No bowel wall thickening. 2. Exam mildly compromised by motion artifact. 3. Small amount of ascites. Mild anasarca. 4. Mild increase in size of the gastrohepatic ligament lymph node which may reflect marvin spread of d isease. 5. Multiple thyroid nodules within the lower lungs which are difficult to assess on this exam due to respiratory motion. These are better depicted on recent CT of the chest. ACT 112: Negative or not required by law. Electronically signed by: Remington Melvin M.D. 08/19/2020 10:19 AM
[2020-08-19] MEDS ORDERED: SODIUM BICARBONATE 4.2% INJ 10 ML SYR IV STA (11:39)
[2020-08-19] MEDS: VANCOMYCIN HCL 750 MG in SODIUM CHLORIDE 0.9% 250 ML IV SCH (12:25)
[2020-08-19] MEDS: METOPROLOL TARTRATE 1 MG/ML VIAL IV PRN (12:40)
[2020-08-19] MEDS: RALOXIFENE HCL 60 MG TAB PO SCH (16:58)
[2020-08-19] MEDS: SIMVASTATIN 40 MG TAB PO SCH (20:51)
[2020-08-20] MEDS: VANCOMYCIN HCL 750 MG in SODIUM CHLORIDE 0.9% 250 ML IV SCH ×2 (01:25→16:14)
[2020-08-20] MEDS: METOPROLOL TARTRATE 1 MG/ML VIAL IV SCH ×3 (03:43→18:13)
[2020-08-20] MEDS: D5W AND 1/2NSS + 20MEQ KCL 20 MEQ/1,000 ML BAG IV SCH ×2 (04:46→16:16)
[2020-08-20 05:49] LABS: Basophils # (auto) 0.01 K/uL (0-0.2); Basophils % (auto) 0.3 %; Hematocrit (blood only) 23.9 % (37-47); Hemoglobin 7.6 g/dL (12.0-16.0); Immature Granulocytes # (auto) 0.01 K/uL (0.00-0.02); Immature Granulocytes % (auto) 0.3 %; Lymphocytes # (auto) 0.43 K/uL (1.2-3.4); Lymphocytes % (auto) 11.5 %; Mean Corpuscular Hemoglobin 25.3 pg (25-34); Mean Corpuscular Hgb Conc 31.8 g/dL (32-36); Mean Corpuscular Volume 79.7 fL (80-100); Monocytes # (auto) 0.25 K/uL (0.11-0.59); Monocytes % (auto) 6.7 %; Neutrophils # (auto) 3.03 K/uL (1.4-6.5); Neutrophils % (auto) 81.2 %; Platelet Count 132 K/uL (130-400); RDW Coefficient of Variation 17.9 % (11.5-14.5); RDW Standard Deviation 51.1 fL (36.4-46.3); White Blood Count 3.73 K/uL (4.8-10.8)
[2020-08-20 06:06] LABS: BUN Creatinine Ratio 16.4 (10-20); Calcium 7.2 mg/dl (8.5-10.1); Creatinine Clr Calc Pharmacy 45.3 ml/min; Est GFR (African American) 101.5; Est GFR (Non-African American) 87.6; Magnesium 1.8 mg/dl (1.8-2.4); Potassium 3.4 mmol/L (3.5-5.1)
[2020-08-20 06:09] LABS: Albumin Globulin Ratio 0.5 (0.9-2); Bilirubin,Total 0.6 mg/dl (0.2-1); Globulin 3.8 gm/dl (2.5-4.0); Total Protein 5.8 gm/dl (6.4-8.2)
[2020-08-20 06:30] LABS: Giant Platelets 1+
[2020-08-20 06:57] LABS: Appearance Urine Clear (Clear); Bacteria Urine Automated Negative (Negative); Bilirubin Urine Negative (Negative); Blood Urine 1+ (Negative); Color Urine Yellow; Epithelial Cell Urine Auto >30 /lpf (0-5); Glucose Urine UA Negative (Negative); Ketones Urine Negative (Negative); Leukocyte Esterase Urine Negative (Negative); Nitrite Urine Negative (Negative); Protein Urine 2+ (Negative); RBC Urine Automated 0-4 /hpf (0-4); Specific Gravity Urine 1.028 (1.000-1.030); Urobilinogen Urine Negative (Negative); pH Urine 5.5 (4.5-7.5)
[2020-08-20 07:21] LABS: Amorphous Sediment Urine Present (None Prsent)
[2020-08-20] MEDS: methylPREDNISolone 1,000 MG in DEXTROSE 5% 250 ML IV SCH (08:48)
--- NOTE | 2020-08-20 09:00 | Hospitalist Progress Note ---
Date of Service August 20, 2020 Assessment & Plan (1) Encephalopathy: Patient initially admitted on 08/13/2020 with 5 days of weakness and worsening confusion by her , admitted with sepsis secondary to gram negative bacilli, UTI, Klebsiella -- She was found to have urinary tract infection -- 1x dose Ceftriaxone in ER. -- Continued on Cefepime 08/13 given fever 39.2C however blood cultures were not drawn until after this was started and she had a repeat temperature. -- Patient had been doing well until the morning of 08/17 when she was increasingly confused and not able to commands and stroke alert was called. -- She had been getting inconsistent NIHSS. Neurology consulted. -- Imaging negative for acute CVA. -- Received 3 doses Benadryl prior to morning of confusion and this was stopped and patient continued with confusion. -- EEG consistent with encephalopathy but no seziure activity -- Neurology started on Keppra 08/18 for possible subclinical seizures, but patient was more lethargic. Subsequently discontinued. -- Blood cultures from 08/14 and 08/16 still without growth to date -- follow -- Confusion is improved, she called and spoke to her this morning. -- Possible neuroendocrine and could consider IV steroids +/- IVIG, however she already receives Hizentra which is SQ Ig Also considering possible CEFEPIME as culprit for possible severe neurotoxicity which has been reported with use: -- Per [employer]pto[employer]: "severe neurotoxicity has been reported with cefepime use, including encephalopathy, aphasia, myoclonus, opsoclonus, seizure, and nonconvulsive status epilepticus. -- Median onset 2-4 days from initiation (she was started on 08/14 and symptoms began 08/16 evening into morning of 08/17 as above. -- Cefepime discontinued as of 08/18/20. -- Given dose of hydrocortisone 08/18/20 -- Currently 48 hours post d/c Cefepime and made a significant improvement overn ight. -- Patient was started on Methylprednisolone 1gm IV daily for possible limbic encephalitis -- Consideration for IVIG but will hold off for now. (2) Acute UTI: -- Admitted with generalized weakness for the past 5 days -- could also be secondary to progressive small cell lung cancer and worsening anemia. -- Completed a course of IV antibiotics as above for Klebsiella UTI. -- Repeat UA without signs of infection. (3) Lung cancer: -- History of NSCLC, no longer getting chemo. Also with a history of large B cell Hodgkin Lymphoma. -- Discussed with oncology -- no more chemo as patient not able to tolerate and had been just routine follow up for symptoms with next appointment next week. -- Patient met with Palliative Medicine today. (4) HTN (hypertension): -- Continue Lopressor - consider switching to Metoprolol Succinate ER at discharge. -- BP readings variable. -- Hydralazine IV as needed. (5) CAD, multiple vessel: -- No angina pectoris, asymptomatic. -- Continue usual cardiac regimen. (6) Coronary artery bypass grafts x 4: -- CABG x 4 vessels 2010. -- No angina pectoris, asymptomatic. -- Continue usual cardiac regimen. (7) Anemia: -- Hgb is 7.6 g/dl this morning. -- History of heme + stools. -- Consider transfusion. Admission and Anticipated Discharge Date Admission Date: August 14, 2020 Subjective Mrs. Vega is a 75 year old female with a history of CAD s/p CABG x 4 vessels 2010, Ischemic Cardiomyopathy (LVEF 45% to 50%), Hypertension, Dyslipidemia, Metastatic NSCLC (no longer a candidate for chemotherapy), Gastric Lymphoma(in remission), Sjogren's Syndrome, COPD, Malnutrition, Autoimmune Hepatitis, and Chronic Stable Angina Pectoris (exertional posterior thorax pain) who was admitted to [facility] on 08/13/20 with generalized weakness and suspected UTI. She received IV Benadryl on the morning of 08/17/20 and subsequently developed mental status changes, confusion, and lethargy. Stroke alert called. Patient's EEG was negative for epileptiform abnormalities but did reveal a moderate nonspecific encephalopathy. Follow-up brain MRI was negative for acute or subacute infarct. Incidental area of hemosiderin deposition noted within the left temporal lobe. No other significant parenchymal signal abnormality. CT angiography of the head and neck negative for significant carotid, vertebral, or intracranial vascular abnormality. Patient received a 1 g dose of Keppra f ollowed by increased lethargy. Going for Lumbar Puncture this morning to hopefully define more clearly what her encephalopathy is from. May have been secondary to Cefepime which can be neurotoxic. Patient seen by Palliative Medicine today. Review of Systems Review of Systems: All systems reviewed & are unremarkable except as noted in Subjective Physical Exam Physical Exam: General: Chronically ill appearing patient in no acute distress.. HEENT: Head is atraumatic, normocephalic. Temporal wasting is noted. EOMs intact. Sclerae anicteric. Facies symmetric. No perioral cyanosis. Neck: No JVD. Carotid upstrokes +2 bilaterally without bruits. JVP is at the level of the clavicle sitting upright. Chest and Lungs: Diminished breath sounds throughout, no obvious wheezes, rales, rhonchi. CVS: S1 and S2 are regular with an S4 gallop. No obvious murmurs or rubs. PMI is nondisplaced. No lifts, heaves, or thrills. No abdominal aortic or renal bruits. Abdominal Exam: Bowel sounds present. No masses, organomegaly, or tenderness. Extremities: No clubbing, cyanosis, or edema. Intact posterior tibial and radial pulses bilaterally. Neurologic Exam: Patient is awake and interactive, she knows who I am, where she's at, and that she has been confused. Pleasant and cooperative. Answers questions appropriately. Speech is clear. Normal movement in all 4 extremities. No focal neurologic deficits. Gait pattern was not assessed. Results & Data Results & Data ([facility]) Vital Signs (Past 12 Hours) Vital Signs Temp Pulse Pulse Pulse Resp BP BP 08/20/20 07:22 84 08/20/20 07:00 36.5 C 92 H 18 08/20/20 04:00 36.4 C L 90 19 154/71 H 08/20/20 03:43 90 154/71 H 08/20/20 00:00 105 H 08/19/20 22:43 36.5 C 104 H 18 170/89 H BP Pulse Ox 08/20/20 07:22 08/20/20 07:00 152/72 H 100 08/20/20 04:00 97 08/20/20 03:43 08/20/20 00:00 08/19/20 22:43 93 Laboratory Results Laboratory Results - last 24 hr 08/19/20 08/19/20 08/19/20 09:32 09:53 10:40 WBC RBC Hgb Hct MCV MCH MCHC RDW Std Deviation RDW Coeff of Marlene Plt Count MPV Immature Gran % (Auto) Neut % (Auto) Lymph % (Auto) [place] % (Auto) Eos % (Auto) Baso % (Auto) Neut # (Auto) Lymph # (Auto) [place] # (Auto) Eos # (Auto) Baso # (Auto) Immature Gran # (Auto) Giant Platelets ABG pH 7.49 H ABG pCO2 23 L ABG pO2 68 L ABG HCO3 17 L ABG O2 Saturation 94.0 ABG Base Excess -4.6 Manny Test Pos Barometric Pressure 726.9 Oxygen Given ROOM AIR Sodium Potassium Chloride Carbon Dioxide Anion Gap BUN Creatinine Est Cr Clr Drug Dosing Est GFR ( Amer) Est GFR (Non-Af Amer) BUN/Creatinine Ratio Glucose POC Glucose Lactate 1.7 Calcium Magnesium Total Bilirubin AST ALT Alkaline Phosphatase Total Protein Albumin Globulin Albumin/Globulin Ratio Urine Color Urine Appearance Urine pH Ur Specific [place] Urine Protein Urine Glucose (UA) Urine Ketones Urine Blood Urine Nitrite Urine Bilirubin Urine Urobilinogen Ur Leukocyte Esterase Urine WBC (Auto) Urine RBC (Auto) U Hyaline Cast (Auto) U Epithel Cells (Auto) Urine Bacteria (Auto) Amorphous Sediment Granular Casts Urine Yeast Stl C. diff Tox B Gene TNP 08/20/20 08/20/20 08/20/20 04:52 05:33 05:33 WBC 3.73 L RBC 3.00 L Hgb 7.6 L Hct 23.9 L MCV 79.7 L MCH 25.3 MCHC 31.8 L RDW Std Deviation 51.1 H RDW Coeff of Marlene 17.9 H Plt Count 132 MPV 9.0 Immature Gran % (Auto) 0.3 Neut % (Auto) 81.2 Lymph % (Auto) 11.5 [place] % (Auto) 6.7 Eos % (Auto) 0.0 Baso % (Auto) 0.3 Neut # (Auto) 3.03 Lymph # (Auto) 0.43 L [place] # (Auto) 0.25 Eos # (Auto) 0.00 Baso # (Auto) 0.01 Immature Gran # (Auto) 0.01 Giant Platelets 1+ ABG pH ABG pCO2 ABG pO2 ABG HCO3 ABG O2 Saturation ABG Base Excess Manny Test Barometric Pressure Oxygen Given Sodium 141 Potassium 3.4 L Chloride 112 H Carbon Dioxide 21 Anion Gap 8.0 BUN 10 Creatinine 0.62 Est Cr Clr Drug Dosing 45.3 Est GFR ( Amer) 101.5 Est GFR (Non-Af Amer) 87.6 BUN/Creatinine Ratio 16.4 Glucose 174 H POC Glucose Lactate Calcium 7.2 L Magnesium 1.8 Total Bilirubin 0.6 AST 43 H ALT 32 Alkaline Phosphatase 125 H Total Protein 5.8 L Albumin 2.0 L Globulin 3.8 Albumin/Globulin Ratio 0.5 L Urine Color Urine Appearance Urine pH Ur Specific [place] Urine Protein Urine Glucose (UA) Urine Ketones Urine Blood Urine Nitrite Urine Bilirubin Urine Urobilinogen Ur Leukocyte Esterase Urine WBC (Auto) Urine RBC (Auto) U Hyaline Cast (Auto) U Epithel Cells (Auto) Urine Bacteria (Auto) Amorphous Sediment Granular Casts Urine Yeast Stl C. diff Tox B Gene Negative Cdiff Gene 08/20/20 08/20/20 05:50 06:09 WBC RBC Hgb Hct MCV MCH MCHC RDW Std Deviation RDW Coeff of Marlene Plt Count MPV Immature Gran % (Auto) Neut % (Auto) Lymph % (Auto) [place] % (Auto) Eos % (Auto) Baso % (Auto) Neut # (Auto) Lymph # (Auto) [place] # (Auto) Eos # (Auto) Baso # (Auto) Immature Gran # (Auto) Giant Platelets ABG pH ABG pCO2 ABG pO2 ABG HCO3 ABG O2 Saturation ABG Base Excess Manny Test Barometric Pressure Oxygen Given Sodium Potassium Chloride Carbon Dioxide Anion Gap BUN Creatinine Est Cr Clr Drug Dosing Est GFR ( Amer) Est GFR (Non-Af Amer) BUN/Creatinine Ratio Glucose POC Glucose 173 H Lactate Calcium Magnesium Total Bilirubin AST ALT Alkaline Phosphatase Total Protein Albumin Globulin Albumin/Globulin Ratio Urine Color Yellow Urine Appearance Clear Urine pH 5.5 Ur Specific [place] 1.028 Urine Protein 2+ H Urine Glucose (UA) Negative Urine Ketones Negative Urine Blood 1+ H Urine Nitrite Negative Urine Bilirubin Negative Urine Urobilinogen Negative Ur Leukocyte Esterase Negative Urine WBC (Auto) 1-5 Urine RBC (Auto) 0-4 U Hyaline Cast (Auto) 1-5 U Epithel Cells (Auto) >30 H Urine Bacteria (Auto) Negative Amorphous Sediment Present A Granular Casts 1-5 H Urine Yeast Not Reportable Stl C. diff Tox B Gene Medications Administered Medications cevimeline 30 mg PO TIDM 06/21/18 [History Confirmed 08/13/20] isosorbide mononitrate 60 mg PO QAM 06/21/18 [History Confirmed 08/13/20] magnesium 500 mg PO QAM 06/21/18 [History Confirmed 08/13/20] ondansetron 8 mg PO Q8H PRN 06/21/18 [History Confirmed 08/13/20] potassium chloride 10 meq PO TIDM 06/21/18 [History Confirmed 08/13/20] raloxifene 60 mg PO QPM 06/21/18 [History Confirmed 08/13/20] ranolazine [Ranexa] 500 mg PO AMHS 06/21/18 [History Confirmed 08/13/20] simvastatin 40 mg PO HS 06/21/18 [History Confirmed 08/13/20] Calcium 600 + D(3) 1 cap PO BIDM 09/06/18 [History Confirmed 08/13/20] pantoprazole 40 mg PO QAM 09/23/18 [History Confirmed 08/13/20] immun glob G 4 gram/20 mL(20 %)-prol-IgA 0-50 mcg/mL subcutaneous soln 8 gm SQ WEEKLY ml 02/16/19 [History Confirmed 08/13/20] prednisone 1 mg tablet,delayed release 3 mg PO QAM tab 02/16/19 [History Confirmed 08/13/20] prochlorperazine maleate [Compazine] 10 mg PO Q8H PRN 04/05/19 [History Confirmed 08/13/20] Plexus-Probio 5 1 dose PO DAILY 03/11/20 [History Confirmed 08/13/20] albuterol sulfate 2 puffs INH AMPM 03/11/20 [History Confirmed 08/13/20] benzonatate 100 mg PO Q6H PRN 03/11/20 [History Confirmed 08/13/20] epinephrine [EpiPen] 0.3 mg IM Q3H PRN 03/11/20 [History Confirmed 08/13/20] metoprolol tartrate 75 mg PO AMHS 03/11/20 [History Confirmed 08/13/20] [id number] 1 tab PO DAILY 03/11/20 [History Confirmed 08/13/20] nitroglycerin [Nitrostat] 0.4 mg SUBLINGUAL DIRECTED PRN 03/11/20 [History Confirmed 08/13/20] guaifenesin [Mucinex] 600 mg PO Q12 PRN 08/13/20 [History Confirmed 08/13/20] ofloxacin 1 drp OPL QID 08/13/20 [History Confirmed 08/13/20] prednisolone acetate 1 drp OPL QID 08/13/20 [History Confirmed 08/13/20] cephalexin 500 mg PO QID 6 Days #24 cap 08/16/20 [Rx] ferrous sulfate 325 mg PO QAM #30 tab 08/16/20 [Rx] Home Medications Acetaminophen (Acetaminophen 325 Mg Tab) 650 mg PO Q4H PRN PRN Reason: pain/fever Stop: 09/12/20 14:34 Last Admin: 08/16/20 18:07 Dose: 650 mg Documented by: Aspirin (Aspirin 81 Mg Ectab) 81 mg PO QDL [facility] Stop: 09/13/20 11:29 Last Admin: 08/15/20 11:39 Dose: 81 mg Documented by: Cevimeline HCl (Cevimeline Hcl) 1 ea PO TIDM [facility] Stop: 09/12/20 16:59 Last Admin: 08/19/20 16:58 Dose: Not Given Documented by: Ferrous Sulfate (Ferrous Sulfate 325 Mg Tab) 325 mg PO BIDM [facility] Stop: 09/14/20 16:59 Last Admin: 08/19/20 16:58 Dose: Not Given Documented by: Guaifenesin (Guaifenesin 600 Mg Tabcr) 600 mg PO Q12 PRN PRN Reason: Congestion Stop: 09/12/20 14:15 Heparin Sodium (Porcine) (Heparin 100 Unit/Ml 5ml Flush) 5 ml FLUSH PRN PRN PRN Reason: Flush Stop: 09/13/20 03:09 Last Admin: 08/18/20 23:13 Dose: 5 ml Documented by: Heparin Sodium (Porcine) (Heparin Sod 5,000 Unit/0.5 Ml Vial) 5,000 units SQ Q12 [facility] Stop: 09/14/20 20:59 Last Admin: 08/19/20 20:50 Dose: 5,000 units Documented by: Piperacillin Sod/Tazobactam (Sod 3.375 gm/ Dextrose) 115 mls @ 28.75 mls/hr IV Q8H [facility]; Protocol Stop: 08/22/20 07:59 Last Infusion: 08/20/20 04:05 Dose: Infused Documented by: Potassium Chloride/Dextrose/Sod Cl (D5w And 1/2nss + 20meq Kcl) 20 meq in 1,000 mls @ 80 mls/hr IV .[id number] [facility] Stop: 09/17/20 13:59 Last Admin: 08/20/20 04:46 Dose: 80 mls/hr Documented by: Pantoprazole Sodium 40 mg/ (Syringe) 10 mls @ 5 mls/min IV BID [facility] Stop: 09/17/20 20:59 Last Admin: 08/19/20 20:49 Dose: 5 mls/min Documented by: Vancomycin HCl 750 mg/ Sodium (Chloride) 265 mls @ 200 mls/hr IV Q14H [facility]; Protocol Stop: 08/21/20 10:59 Last Infusion: 08/20/20 03:22 Dose: Infused Documented by: Methylprednisolone 1,000 mg/ (Dextrose) 266 mls @ 266 mls/hr IV DAILY [facility] Stop: 09/19/20 08:59 Last Admin: 08/20/20 08:48 Dose: 266 mls/hr Documented by: Immune Globulin (Immune Globulin (Human) Subcut 2 Gm/10 Ml Inj) 4 gm SC Fr@ 1615,1630 [facility] Stop: 09/16/20 16:14 Last Admin: 08/17/20 16:05 Dose: 4 gm Documented by: Isosorbide Mononitrate (Isosorbide [place] Extended Rel 60 Mg Tabcr) 60 mg PO QAM [facility] Stop: 09/13/20 08:59 Last Admin: 08/19/20 08:01 Dose: Not Given Documented by: Lansoprazole (Lansoprazole 30 Mg Soltab) 30 mg PO BID [facility] Stop: 09/17/20 08:59 Last Admin: 08/18/20 10:02 Dose: Not Given Documented by: Magnesium Oxide (Magnesium Oxide 400 Mg Tab) 400 mg PO QAM [facility] Stop: 09/13/20 08:59 Last Admin: 08/19/20 08:01 Dose: Not Given Documented by: Metoprolol Tartrate (Metoprolol Tartrate 25 Mg Tab) 75 mg PO AMHS [facility] Stop: 09/12/20 20:59 Last Admin: 08/19/20 20:51 Dose: Not Given Documented by: Metoprolol Tartrate (Metoprolol Tartrate 1 Mg/Ml Vial) 5 mg IV Q6H [facility] Stop: 09/19/20 02:59 Last Admin: 08/20/20 03:43 Dose: Not Given Documented by: Miscellaneous Information (Vancomycin Consult Active) 1 ea N/A UD PRN PRN Reason: Consult Stop: 09/16/20 07:39 Miscellaneous Information (Piperacill/Tazobac Consult Active) 1 ea N/A UD PRN PRN Reason: Consult Stop: 09/17/20 09:58 Nitroglycerin (Nitroglycerin Sl 0.4 Mg/Tab Tab) 0.4 mg SL PRN PRN PRN Reason: Chest Pain Stop: 09/12/20 14:15 Ondansetron HCl (Ondansetron 4 Mg Od Tab) 4 mg PO Q8H PRN PRN Reason: Nausea Stop: 09/12/20 15:35 Last Admin: 08/16/20 17:19 Dose: 4 mg Documented by: Prednisolone Acetate (Prednisolone Acetate 1% Op Susp 5 Ml Btl) 1 drops OPR DAILY [facility] Stop: 09/16/20 08:59 Last Admin: 08/19/20 08:05 Dose: 1 drops Documented by: Prednisolone Acetate (Prednisolone Acetate 1% Op Susp 5 Ml Btl) 1 drops OPL TID [facility] Stop: 09/16/20 08:59 Last Admin: 08/19/20 20:49 Dose: 1 drops Documented by: Prednisone (Prednisone 1 Mg Tab) 3 mg PO QAM [facility] Stop: 09/13/20 08:59 Last Admin: 08/19/20 08:02 Dose: Not Given Documented by: Raloxifene HCl (Raloxifene Hcl 60 Mg Tab) 60 mg PO QDD [facility] Stop: 09/15/20 16:29 Last Admin: 08/19/20 16:58 Dose: Not Given Documented by: Ranolazine (Ranolazine 500 Mg Er Tab) 500 mg PO AMHS [facility] Stop: 09/12/20 20:59 Last Admin: 08/19/20 20:51 Dose: Not Given Documented by: Simvastatin (Simvastatin 40 Mg Tab) 40 mg PO HS [facility] Stop: 09/12/20 20:59 Last Admin: 08/19/20 20:51 Dose: Not Given Documented by: PG Care Time/CCT Total # of Minutes Spent Total Time Spent with Patient: Total time spent is greater than 50% in coordination of care (as documented) at patient's floor/unit and/or counseling patient:55 Coding Level of Care Code 70293 Subseq Hosp Care Lvl 3 Diagnoses Encephalopathy G93.40 Acute UTI N39.0 Lung cancer C34.90 Laterality: unspecified laterality Lung location: unspecified part of lung HTN (hypertension) I10 CAD, multiple vessel I25.10 Coronary artery bypass grafts x 4 Z95.1 Anemia D64.9 Time Spent (min) 65 (1) Lung cancer Laterality: unspecified laterality Lung location: unspecified part of lung Qualified Code(s): C34.90 - Malignant neoplasm of unspecified part of unspecified bronchus or lung
--- NOTE | 2020-08-20 09:51 | Fluoroscopy Report ---
FLUOROSCOPICALLY GUIDED LUMBAR PUNCTURE CLINICAL HISTORY: r/o limbic encephalitis FLUOROSCOPY TIME: 0.3 minutes NUMBER OF FLUOROSCOPIC IMAGES: 1 PROCEDURE: The procedure, risks and benefits were discussed with the patient including the risk of s emma headache, bleeding and infection. The patient agreed to the procedure and informed written cons ent was obtained. The procedure was performed by Dr. Melvin following a timeout. The right L4-L5 i nterlaminar space was targeted. Skin overlying the space was prepped and draped in sterile fashion an d local anesthesia was achieved with 1% lidocaine. Under intermittent fluoroscopic guidance, a 3 1/2 inch 22-gauge spinal needle was directed into the thecal sac with immediate return of clear CSF. A to elmer of 8 cc of CSF was collected in 4 vials and sent to laboratory as ordered. The needle was removed . The patient tolerated the procedure well and no immediate complications were evident. IMPRESSION: Successful fluoroscopically guided lumbar puncture with collection of 8 cc of clear cereb rospinal fluid which was sent to the laboratory for analysis. ACT 112: Negative or not required by law. Electronically signed by: Remington Melvin M.D. 08/20/2020 9:49 AM
[2020-08-20] MEDS: PIPERACILLIN/TAZOBACTAM 3.375 GM in DEXTROSE 5% 100 ML IV SCH ×2 (10:20→16:55)
[2020-08-20] MEDS: FERROUS SULFATE 325 MG TAB PO SCH ×2 (10:20→17:01)
[2020-08-20] MEDS: predniSONE 1 MG TAB PO SCH (10:20)
[2020-08-20] MEDS: RANOLAZINE 500 MG ER TAB PO SCH ×2 (10:21→20:28)
[2020-08-20] MEDS: MAGNESIUM OXIDE 400 MG TAB PO SCH (10:21)
[2020-08-20] MEDS: ISOSORBIDE MONO EXTENDED REL 60 MG TABCR PO SCH (10:21)
[2020-08-20] MEDS: PANTOprazole 40 MG in SYRINGE 0 ML IV SCH ×2 (10:23→20:15)
[2020-08-20] MEDS: prednisoLONE acetate 1% OP SUSP 5 ML BTL OPR SCH (10:24)
[2020-08-20 10:28] LABS: Appearance CSF Clear; CSF Count Tube # 3; CSF Xanthrochromic No xanthochromia; Color CSF Colorless; Red Blood Cell CSF (A) 0 /uL (0-); Red Blood Cell CSF (B) 0 /uL (0-); White Blood Cell CSF (A) 2 /uL (0-5); White Blood Cell CSF (B) 3 /uL (0-5)
[2020-08-20] MEDS: prednisoLONE acetate 1% OP SUSP 5 ML BTL OPL SCH ×3 (10:33→20:27)
[2020-08-20] MEDS: CEVIMELINE HCL PO SCH ×3 (10:33→16:57)
[2020-08-20 10:35] LABS: CSF Glucose 79 mg/dl (40-70); Total Protein CSF 40.3 mg/dl (15-45)
--- NOTE | 2020-08-20 11:32 | Palliative Care Consultation ---
Date of Consultation August 20, 2020 Assessment & Plan (1) Palliative care encounter: This is a 75 year old female who presented to the [facility] with decreased appetite, weakness and lethargy that was occurring for a 5 day period. She has a diagnosis of NSCLCA for which she is a patient of [facility]. Her last chemotherapy was in October 2019 and she tolerated it poorly and discontinued treatment due to poor performance status. She has been continuing to take Hizentra, an immunotherapy treatment a few times per week Additional PMH include: Large B-cell Non-Hodgkin's Lymphoma, Macular Degeneration and glaucoma for which she underwent surgery last week. This admission she was diagnosed with a UTI and is receiving IV abx for treatment. An MRI was performed and negative. An EEG was performed and an LP was performed this morning. Overall, her mental status has shown improvement. Palliative Care was consulted to discuss goals of care. I met with Regine in room 287-1. She is awake, alert, and oriented, which appears to be an improvement from over the weekend. She was able to discuss the treatment that she had back in October. Overall, she said that she feels God is "in this with her" and helping to guide her. She is realistic in thinking that she will not gain enough strength to return for additional chemo intervention. We talked about what is a meaningful life to her and she said being with her of 57 years, Chase, and her son Richard. She stated that Richard lives with them and requires care from her from a previous CVA her son suffered. Her is well and able to provide care to them. I did discuss hospice with her and she initially thought it meant that she would pass away within a few days. We talked about the benefits and what it entails. She became tearful during the conversation and said this sounds like something I want to hear more about. She asked I talk to her , Chase. I asked what she thinks he would say about Hospice and she feels he will be supportive of this. Pursuing Hospice, would mean that the Immunotherapy Hizentra would need to be discontinued. If family not ready for this transition, she would benefit from Home Palliative Care, which can be arranged as well. I did reach out to Chase at [phone]. He says that overall he feels she is the functionally similar comparing over the last 10 months. He said that her responsiveness has waxed and waned over this timeframe. They do have a chair lif t taking her between the 2nd floor and 3rd floor. Overall, he does feel that the Hizentra has been giving her some benefits and less lung infections overall and would like to continue such, but is willing to discuss hospice in the future. Would benefit from home palliative care and if not at home, outpatient, which they are willing to have on board. Case discussed with Antelmo Castillo and Dr. Tapia. Case management is following. (2) Encephalopathy: MRI negative. Her mental status has returned to her baseline. Possibly related to the Cefepime, but seems per , this lethargy has been continuing. (3) Non-small cell lung cancer (NSCLC): Sees Margarita Smith. Last chemotherapy was in October 2019. Overall, did not tolerate chemotherapy due to poor functional status.She has been continuing to take Hizentra, an immunotherapy treatment a few times per week, which they want to continue. Laterality: right Qualified Code(s): C34.91 - Malignant neoplasm of unspecified part of right bronchus or lung (4) Weakness: Overall weakness that is progressively worsening. She has been able to ambulate from her bedroom to the livingroom but it is becoming harder for her. (5) Insomnia: Patient main complaint right now is insomnia. She said that she lays there with her eyes closed but is unfortunately not sleeping. She has stated she doesn't remember taking anything for sleep. I did discuss with the hospitalist who was supportive of starting her on Remeron. Remeron 15 mg PO QHS ordered. History of Present Illness Reason for Consultation: Goals of Care Requesting Physician: Chantelle Alexis PA-C Attending Physician: Elliott Tapia DO History of Present Illness This is a 75 year old female who presented to the [facility] with decreased appetite, weakness and lethargy that was occurring for a 5 day period. She has a diagnosis of NSCLCA for which she is a patient of Margarita Smith through [facility]. Her last chemotherapy was in October 2019 and she tolerated it poorly and discontinued treatment due to poor performance status. She has been continuing to take Hizentra, an immunotherapy treatment a few times per week. Additional PMH include: Large B-cell Non-Hodgkin's Lymphoma, Macular Degeneration and glaucoma for which she underwent surgery last week. This admission she was diagnosed with a UTI and is receiving IV abx for treatment. An MRI was performed and negative. An EEG was performed and an LP was performed this morning. Palliative Care was consulted to discuss goals of care. Please see A/P for further details. Thanks for involving Palliative Medicine with his individual. Allergies Allergy/AdvReac Type Severity Reaction Status Date / Time No Known Allergies Allergy Verified 08/13/20 13:05 Home Medications Medication Instructions Recorded Confirmed Type cevimeline 30 mg PO TIDM 06/21/18 08/13/20 History isosorbide mononitrate 60 mg PO QAM 06/21/18 08/13/20 History magnesium 500 mg PO QAM 06/21/18 08/13/20 History ondansetron 8 mg PO Q8H PRN 06/21/18 08/13/20 History potassium chloride 10 meq PO TIDM 06/21/18 08/13/20 History raloxifene 60 mg PO QPM 06/21/18 08/13/20 History ranolazine [Ranexa] 500 mg PO AMHS 06/21/18 08/13/20 History simvastatin 40 mg PO HS 06/21/18 08/13/20 History Calcium 600 + D(3) 1 cap PO BIDM 09/06/18 08/13/20 History pantoprazole 40 mg PO QAM 09/23/18 08/13/20 History immun glob G 4 gram/20 mL(20 8 gm SQ WEEKLY ml 02/16/19 08/13/20 History %)-prol-IgA 0-50 mcg/mL subcutaneous soln prednisone 1 mg tablet,delayed 3 mg PO QAM tab 02/16/19 08/13/20 History release prochlorperazine maleate 10 mg PO Q8H PRN 04/05/19 08/13/20 History [Compazine] Plexus-Probio 5 1 dose PO DAILY 03/11/20 08/13/20 History albuterol sulfate 2 puffs INH AMPM 03/11/20 08/13/20 History benzonatate 100 mg PO Q6H PRN 03/11/20 08/13/20 History epinephrine [EpiPen] 0.3 mg IM Q3H PRN 03/11/20 08/13/20 History metoprolol tartrate 75 mg PO AMHS 03/11/20 08/13/20 History iewjldpsghal-bebboidb-qekrwk 1 tab PO DAILY 03/11/20 08/13/20 History nitroglycerin [Nitrostat] 0.4 mg SUBLINGUAL DIRECTED PRN 03/11/20 08/13/20 History guaifenesin [Mucinex] 600 mg PO Q12 PRN 08/13/20 08/13/20 History ofloxacin 1 drp OPL QID 08/13/20 08/13/20 History prednisolone acetate 1 drp OPL QID 08/13/20 08/13/20 History cephalexin 500 mg PO QID 6 Days #24 cap 08/16/20 Rx ferrous sulfate 325 mg PO QAM #30 tab 08/16/20 Rx Patient History Medical History (Updated 08/20/20 @ 13:01 by Antelmo Castillo PA-C) CAD (coronary artery disease), teller coronary artery With stable angina COPD exacerbation Diarrhea GERD (gastroesophageal reflux disease) DIET CONTROLLED Glaucoma History of lung cancer dx 2018 chemo History of lymphoma dx 2015, in remission Hyperlipidemia Hypertension Hypogammaglobulinemia Immunodeficiency Immunosuppression Insomnia Mitral regurgitation mild to moderate Osteoporosis Palliative care encounter Sjogren's disease Steroid dependence sjogrens disease TIA (transient ischemic attack) 12/14/2018, TIA vs possible seizure. Weakness Surgical History History of arthroscopy RIGHT KNEE MENISCUS History of cataract surgery RT History of cholecystectomy History of colonoscopy History of coronary artery bypass graft 4 VESSEL, [facility] 6 YEARS AGO History of hysterectomy Family History Unknown Heart disease Other Family history non-contributory Social History Smoking Status: Never smoker Second Hand Exposure: No; Do You Dip or Chew Tobacco: No; Tobacco Cessation Education Requested by Patient: No Hx Alcohol Use: No Hx Substance Use: No Preferred Language: Iraqi Communication Ability: Effective Apiculturist Required: No Beliefs That Will Affect Care: None marital status: Current Living Situation: Spouse current occupational status: retired 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 Other Information That Helps Us Care for You: No Feels Safe at Home: Yes Assistive Devices: None Review of Systems Review of Systems: [place] System Assessment Scale: Pain: 0/3 Tiredness: 2/3 Drowsiness: 0/3 Shortness of breath: 0/3 Lack of appetite: 0/3 Palliative Performance Scale: 30% Physical Exam Constitutional: + thin, + frail appearing, cooperative and comfortable Respiratory: normal respiratory effort Auscultation: + diminished lung sounds Cardiovascular: Heart Sounds: normal S1 and normal S2 Extremities: normal capillary refill; no edema Gastrointestinal (Abdomen): normal bowel sounds, soft, nontender, no hepatosplenomegaly loose stools Skin: + dry skin and + pallor Psychiatric: A+Ox3, euthymic affect Results & Data ([facility]) Vital Signs (Past 12 Hours) Vital Signs Temp Pulse Pulse Resp BP BP BP 08/20/20 10:23 84 152/72 H 08/20/20 07:22 84 08/20/20 07:00 36.5 C 92 H 18 152/72 H 08/20/20 04:00 36.4 C L 90 19 154/71 H 08/20/20 03:43 90 154/71 H 08/20/20 00:00 105 H Pulse Ox 08/20/20 10:23 08/20/20 07:22 08/20/20 07:00 100 08/20/20 04:00 97 08/20/20 03:43 08/20/20 00:00 PG Care Time/CCT Total # of Minutes Spent Total Time Spent with Patient: Total time spent is greater than 50% in coordination of care (as documented) at patient's floor/unit and/or counseling patient: 70 minutes with > 50% of that time spent assessing the patient, discussing goals of care and collaborating with IDT. Coding Level of Care Code 88387 Inpt Consult Level 3 Diagnoses Palliative care encounter Z51.5 Encephalopathy G93.40 Non-small cell lung cancer (NSCLC) C34.91 Laterality: right Weakness R53.1 Insomnia G47.00 Time Spent (min) 70
[2020-08-20 11:44] LABS: Cryptococcus neoformans/ga PCR Not Detected (NotDetected); Cytomegalovirus PCR Not Detected (NotDetected); Enterovirus PCR Not Detected (NotDetected); Escherichia coli K1 PCR Not Detected (NotDetected); Haemophilius influenzae PCR Not Detected (NotDetected); Herpes Simplex Virus 1 PCR Not Detected (NotDetected); Herpes Simplex Virus 2 PCR Not Detected (NotDetected); Human Herpes Virus 6 PCR Not Detected (NotDetected); Human Parechovirus PCR Not Detected (NotDetected); Listeria monocytogenes PCR Not Detected (NotDetected); Neisseria meningitidis PCR Not Detected (NotDetected); Streptococcus agalactiae PCR Not Detected (NotDetected); Streptococcus pneumoniae PCR Not Detected (NotDetected); Varicella Zoster Virus PCR Not Detected (NotDetected)
[2020-08-20 13:36] LABS: CSF Chemistry Tube # 1
[2020-08-20] MEDS ORDERED: VANCOMYCIN TROUGH ONE (14:30)
--- NOTE | 2020-08-20 14:58 | Neurology Progress Note ---
Date of Service August 20, 2020 Assessment & Plan (1) Encephalopathy: Naila Vega is a 75 year old woman w/ PMH of CAD s/p CABG, Ischemic Cardiomyopathy (LVEF 45% to 50%), HTN, HLD, metastatic NSCLC (no longer a candidate for chemotherapy), Gastric Lymphoma (in remission), Sjogren's Syndrome on chronic steroids, COPD, protein-energy malnutrition, autoimmune hepatitis, and chronic angina who was initially admitted to [facility] on 08/13/20 with generalized weakness and suspected UTI, found to have a UTI. Hospital course c/b AMS/lethargy after IV benadryl on 08/17/20 which has slowly been improving. Work-up: - EEG: moderate generalized encephalopathy - MRI brain: mild SVID, microhemorrhage in left posterior frontal lobe, mild generalized atrophy w/ ex vacuo dilation, no acute infarct, punctuate chronic infarct in the right occipital lobe - CTA H&N: no LVO, high grade stenosis or aneurysm noted - Ca low (7.2), Mg 1.8, Phos (not checked), NH3 <10, TSH WNL, UA no infection - CSF studies: 2 WBC, 0 RBC, glucose 79, protein 40.3, CSF biofire negative, autoimmune encephalitis panel pending # AMS: likely in the setting of infection, underlying health conditions, toxic- metabolic changes and possibly hospital acquired delirium - f/u autoimmune encephalitis panel (usually takes several weeks to get results back); is already on chronic steroids and IVIG as an outpatient, unclear that she would benefit from this as an inpatient so would hold off - delirium precautions, lights on during day/off at night, minimize use of opiates/benzos/anti-cholinergics, frequent re-orientation - would complete AMS workup with thiamine, B12 and Phos levels - f/u with Dr Dowd or CHARLES Rodriguez, in 4-6 weeks after results of autoimmune encephalitis panel available Thank you for this interesting consult. Plan of care discussed with primary team. Please call or text with questions. 45 minutes was spent mozr-is-[id number] with patient, with more than 50% spent on counseling/coordination of care/charting. (2) Gram negative sepsis: (3) Immune deficiency disorder: (4) Severe protein-calorie malnutrition: Admission and Anticipated Discharge Date Admission Date: August 14, 2020 Subjective NAEs overnight. Seen by palliative care today. She reports that she is doing well but is quite repetitive in conversation, stating the same thing repeatedly or asking the same questions repeatedly. Review of Systems Review of Systems: Unobtainable due to cognitive status Results & Data ([facility]) Vital Signs (Past 12 Hours) Vital Signs Temp Pulse Pulse Pulse Resp BP BP 08/20/20 12:32 36.5 C 109 H 20 08/20/20 10:23 84 152/72 H 08/20/20 07:22 84 08/20/20 07:00 36.5 C 92 H 18 08/20/20 04:00 36.4 C L 90 19 154/71 H 08/20/20 03:43 90 154/71 H BP Pulse Ox 08/20/20 12:32 154/74 H 95 08/20/20 10:23 08/20/20 07:22 08/20/20 07:00 152/72 H 100 08/20/20 04:00 97 08/20/20 03:43 Exam (Neuro) Physical Exam: General Exam: GEN: NAD, sitting in chair. HEENT: No conjunctival injection, no rhinorrhea. CV: RRR, no peripheral edema PULM: Nonlabored respirations on room air. Neuro Exam: MS: Awake and Alert. Oriented to person, place, not date. Speech fluent and appropriate without dysarthria or paraphasic errors. Language intact including naming, comprehension, repetition. Cognition and memory mildly impaired. Attention intact. No neglect. CN: Visual day full. No extinction to double simultaneous stimuli. Unable to visualize fundi on fundoscopic exam. PERRLA OU. EOMI without nystagmus. Facial sensation intact to LT. Facial muscles full and symmetric. Hearing intact to conversation. MOTOR: Normal bulk and tone. No pronator drift. All extremities antigravity without drift. REFLEXES: 2+ at biceps, triceps, brachioradialis, 2+ patella and Achilles bilaterally. Flexor plantar responses bilaterally. SENSORY: Intact to LT without extinction to double simultaneous stimuli. COORDINATION: No dysmetria or ataxia on [id number]-wf-arnj. Mild fine, high frequency tremor on outstretch. GAIT: deferred given physical status PG Care Time/CCT Total # of Minutes Spent Total Time Spent with Patient: Total time spent is greater than 50% in coordination of care (as documented) at patient's floor/unit and/or counseling patient: Coding Level of Care Code 38816 Subseq Hosp Care Lvl 3 Diagnoses Encephalopathy G93.40 Gram negative sepsis A41.50 Immune deficiency disorder D84.9 Severe protein-calorie malnutrition E43
--- NOTE | 2020-08-20 15:06 | Pharmacy Report ---
Pharmacy Abx Dose Short Note - Date of Service August 20, 2020 - Assessment & Plan Assessment 75 year old F receiving Vancomycin and Zosyn for empiric treatment of fever * Day #3 of vancomycin and zosyn (received 4 days of cefepime prior to this) * No changes in lab/micro data * Attending would like to extend empiric vanc and zosyn for another 48 hours Plan Vancomycin * Trough level of 17.7 mcg/mL is therapeutic * Continue dose of 750 mg IV every 14 hours * Goal trough level: 15 to 20 mcg/mL * No further trough ordered unless abx are to extend beyond another 48 hours Zosyn * 3.375 g IV every 8 hours - appropriate Pharmacy will continue to follow and will adjust dose/frequency as necessary. Thank you.
[2020-08-20] MEDS ORDERED: METOPROLOL TARTRATE 25 MG TAB PO STA (16:28)
[2020-08-20] MEDS: RALOXIFENE HCL 60 MG TAB PO SCH (17:52)
[2020-08-20] MEDS: MIRTAZAPINE TAB 15 MG TAB PO SCH (20:25)
[2020-08-20] MEDS: SIMVASTATIN 40 MG TAB PO SCH (20:28)
[2020-08-21] MEDS: PIPERACILLIN/TAZOBACTAM 3.375 GM in DEXTROSE 5% 100 ML IV SCH ×4 (00:12→23:38)
[2020-08-21] MEDS: ACETAMINOPHEN 325 MG TAB PO PRN (02:32)
[2020-08-21] MEDS: VANCOMYCIN HCL 750 MG in SODIUM CHLORIDE 0.9% 250 ML IV SCH (04:33)
[2020-08-21] MEDS: HEPARIN 100 UNIT/ML 5ML FLUSH FLUSH PRN ×2 (05:57→13:14)
[2020-08-21] MEDS: LOPERAMIDE HCL 2 MG CAP PO PRN ×2 (05:57→23:38)
[2020-08-21] MEDS: methylPREDNISolone 1,000 MG in DEXTROSE 5% 250 ML IV SCH (07:53)
[2020-08-21] MEDS: CEVIMELINE HCL PO SCH ×3 (07:54→17:10)
[2020-08-21] MEDS: PANTOprazole 40 MG in SYRINGE 0 ML IV SCH ×2 (07:54→20:33)
[2020-08-21] MEDS: RANOLAZINE 500 MG ER TAB PO SCH ×2 (07:54→20:34)
[2020-08-21] MEDS: MAGNESIUM OXIDE 400 MG TAB PO SCH (07:54)
[2020-08-21] MEDS: ISOSORBIDE MONO EXTENDED REL 60 MG TABCR PO SCH (07:55)
[2020-08-21] MEDS: FERROUS SULFATE 325 MG TAB PO SCH ×2 (07:55→17:11)
[2020-08-21] MEDS: prednisoLONE acetate 1% OP SUSP 5 ML BTL OPL SCH ×3 (07:55→20:34)
[2020-08-21] MEDS: prednisoLONE acetate 1% OP SUSP 5 ML BTL OPR SCH (07:55)
[2020-08-21] MEDS: predniSONE 1 MG TAB PO SCH (07:55)
[2020-08-21] MEDS: METOPROLOL TARTRATE 25 MG TAB PO SCH ×2 (08:00→20:33)
--- NOTE | 2020-08-21 11:16 | Hospitalist Progress Note ---
Date of Service August 21, 2020 Assessment & Plan (1) Encephalopathy: Patient initially admitted on 08/13/2020 with 5 days of weakness and worsening confusion by her , admitted with sepsis secondary to gram negative bacilli, UTI, Klebsiella -- She was found to have urinary tract infection -- 1x dose Ceftriaxone in ER. -- Continued on Cefepime 08/13 given fever 39.2C however blood cultures were not drawn until after this was started and she had a repeat temperature. -- Patient had been doing well until the morning of 08/17 when she was increasingly confused and not able to commands and stroke alert was called. -- She had been getting inconsistent NIHSS. Neurology consulted. -- Imaging negative for acute CVA. -- Received 3 doses Benadryl prior to morning of confusion and this was stopped and patient continued with confusion. -- EEG consistent with encephalopathy but no seziure activity -- Neurology started on Keppra 08/18 for possible subclinical seizures, but patient was more lethargic. Subsequently discontinued. -- Blood cultures from 08/14 and 08/16 still without growth to date -- follow -- Confusion is improved, she called and spoke to her this morning. -- Possible neuroendocrine and could consider IV steroids +/- IVIG, however she already receives Hizentra which is SQ Ig Also considering possible CEFEPIME as culprit for possible severe neurotoxicity which has been reported with use: -- Per [employer]: "severe neurotoxicity has been reported with cefepime use, including encephalopathy, aphasia, myoclonus, opsoclonus, seizure, and nonconvulsive status epilepticus. -- Median onset 2-4 days from initiation (she was started on 08/14 and symptoms began 08/16 evening into morning of 08/17 as above. -- Cefepime discontinued as of 08/18/20. -- Given dose of hydrocortisone 08/18/20 -- Currently 72 hours post d/c Cefepime. 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 Patient's mental status has improved dramatically. She is not confused today but continues to have issues with short term memory and repeats questions. She wants to increase her activity, increase walking with PT/OT. (2) Acute UTI: -- Admitted with generalized weakness for the past 5 days -- could also be secondary to progressive small cell lung cancer and worsening anemia. -- Completed a course of IV antibiotics as above for Klebsiella UTI. -- Repeat UA without signs of infection. -- Remains asymptomatic. (3) Lung cancer: -- History of NSCLC, no longer getting chemo. Also with a history of large B cell Hodgkin Lymphoma. -- Discussed with oncology -- no more chemo as patient not able to tolerate and had been just routine follow up for symptoms with next appointment next week. -- Patient met with Palliative Medicine yesterday, agrees to pursue this avenue. (4) HTN (hypertension): -- Continue Lopressor - consider switch to Metoprolol Succinate ER at discharge. -- BP readings variable. -- Hydralazine IV as needed. (5) CAD, multiple vessel: -- No angina pectoris, asymptomatic. -- Continue usual cardiac regimen. (6) Coronary artery bypass grafts x 4: -- CABG x 4 vessels 2010. -- No angina pectoris, asymptomatic. -- Continue usual cardiac regimen. (7) Anemia: -- Hgb is 7.6 g/dl on 08/20/20, recheck H&H today. -- History of heme + stools. -- Consider transfusion. Admission and Anticipated Discharge Date Admission Date: August 14, 2020 Subjective Mrs. Vega is a 75 year old female with a history of CAD s/p CABG x 4 vessels 2010, Resolved Ischemic Cardiomyopathy, Hypertension, Dyslipidemia, Metastatic NSCLC (no longer a candidate for chemotherapy), Gastric Lymphoma(in remission), Sjogren's Syndrome, COPD, Malnutrition, Autoimmune Hepatitis, and Chronic Stable Angina Pectoris (exertional posterior thorax pain) who was admitted to [facility] on 08/13/20 with generalized weakness and suspected UTI. She received IV Benadryl on the morning of 08/17/20 and subsequently developed mental status changes, confusion, and lethargy. Stroke alert called. Patient's EEG was negative for epileptiform abnormalities but did reveal a moderate nonspecific encephalopathy. Follow-up brain MRI was negative for acute or subacute infarct. Incidental area of hemosiderin deposition noted within the left temporal lobe. No other significant parenchymal signal abnormality. CT angiography of the head and neck negative for significant carotid, vertebral, or intracranial vascular abnormality. Patient received a 1 g dose of Keppra followed by increased lethargy. Going for Lumbar Puncture this morning to hopefully define more clearly what her encephalopathy is from. May have been secondary to Cefepime which can be neurotoxic. Patient is much more alert and interactive today, she feels her confusion has gotten much better. She is sitting in a bedside chair and ate 100% of her breakfast this morning. She reports having a bowel movement this morning. She wants to start walking more. PT and OT are involved. Met with Palliative Medicine yesterday, please refer to that note for details. Physical Exam Physical Exam: General: Chronically ill appearing patient in no acute distress, sitting upright in a bedside chair. HEENT: Head is atraumatic, normocephalic. Temporal wasting is noted. EOMs intact. Sclerae anicteric. Facies symmetric. No perioral cyanosis. Neck: No JVD. Carotid upstrokes +2 bilaterally without bruits. JVP is at the level of the clavicle sitting upright. Chest and Lungs: Diminished breath sounds throughout, no obvious wheezes, rales, rhonchi. CVS: S1 and S2 are regular with an S4 gallop. No obvious murmurs or rubs. PMI is nondisplaced. No lifts, heaves, or thrills. No abdominal aortic or renal bruits. Abdominal Exam: Bowel sounds present. No masses, organomegaly, or tenderness. Extremities: No clubbing, cyanosis, or edema. Intact posterior tibial and radial pulses bilaterally. Neurologic Exam: Patient is awake, alert, and oriented x 3. Pleasant and cooperative. Answers questions appropriately. Speech is at baseline. Normal movement in all 4 extremities. No focal neurologic deficits. Gait pattern was not assessed. TELEMETRY: -- NSR overnight and today at normal rates. Results & Data Results & Data ([facility]) Vital Signs (Past 12 Hours) Vital Signs Temp Pulse Pulse Resp BP BP Pulse Ox 08/21/20 08:06 36.3 C L 83 18 145/81 H 98 08/21/20 04:04 36.6 C 79 18 172/76 H 98 08/21/20 00:37 36.2 C L 76 18 151/80 H 99 08/21/20 00:18 73 Laboratory Results Laboratory Results - last 24 hr 08/20/20 08/20/20 08/20/20 09:20 09:20 09:20 CSF Chemistry Tube # 1 CSF LDH Cancelled CSF C.neoform/gat PCR Not Detected CSF CMV DNA (PCR) Not Detected CSF Enterovirus (PCR) Not Detected CSF E. coli K1 (PCR) Not Detected CSF H. influenzae (PCR) Not Detected CSF HSV I (PCR) Not Detected CSF HSV II (PCR) Not Detected CSF HHV 6 (PCR) Not Detected CSF L.monocytogenes PCR Not Detected CSF N. meningitidis PCR Not Detected CSF Parechovirus (PCR) Not Detected CSF S. agalactiae (PCR) Not Detected CSF S. pneumoniae (PCR) Not Detected CSF VZV DNA (PCR) Not Detected CSF West Nile IgM Ab Cancelled Vancomycin Trough 08/20/20 08/20/20 08/20/20 09:20 09:20 14:24 CSF Chemistry Tube # CSF LDH Pending CSF C.neoform/gat PCR CSF CMV DNA (PCR) CSF Enterovirus (PCR) CSF E. coli K1 (PCR) CSF H. influenzae (PCR) CSF HSV I (PCR) CSF HSV II (PCR) CSF HHV 6 (PCR) CSF L.monocytogenes PCR CSF N. meningitidis PCR CSF Parechovirus (PCR) CSF S. agalactiae (PCR) CSF S. pneumoniae (PCR) CSF VZV DNA (PCR) CSF West Nile IgM Ab Pending Vancomycin Trough 17.7 Medications Administered Medications cevimeline 30 mg PO TIDM 06/21/18 [History Confirmed 08/13/20] isosorbide mononitrate 60 mg PO QAM 06/21/18 [History Confirmed 08/13/20] magnesium 500 mg PO QAM 06/21/18 [History Confirmed 08/13/20] ondansetron 8 mg PO Q8H PRN 06/21/18 [History Confirmed 08/13/20] potassium chloride 10 meq PO TIDM 06/21/18 [History Confirmed 08/13/20] raloxifene 60 mg PO QPM 06/21/18 [History Confirmed 08/13/20] ranolazine [Ranexa] 500 mg PO AMHS 06/21/18 [History Confirmed 08/13/20] simvastatin 40 mg PO HS 06/21/18 [History Confirmed 08/13/20] Calcium 600 + D(3) 1 cap PO BIDM 09/06/18 [History Confirmed 08/13/20] pantoprazole 40 mg PO QAM 09/23/18 [History Confirmed 08/13/20] immun glob G 4 gram/20 mL(20 %)-prol-IgA 0-50 mcg/mL subcutaneous soln 8 gm SQ WEEKLY ml 02/16/19 [History Confirmed 08/13/20] prednisone 1 mg tablet,delayed release 3 mg PO QAM tab 02/16/19 [History Confirmed 08/13/20] prochlorperazine maleate [Compazine] 10 mg PO Q8H PRN 04/05/19 [History Confirmed 08/13/20] Plexus-Probio 5 1 dose PO DAILY 03/11/20 [History Confirmed 08/13/20] albuterol sulfate 2 puffs INH AMPM 03/11/20 [History Confirmed 08/13/20] benzonatate 100 mg PO Q6H PRN 03/11/20 [History Confirmed 08/13/20] epinephrine [EpiPen] 0.3 mg IM Q3H PRN 03/11/20 [History Confirmed 08/13/20] metoprolol tartrate 75 mg PO AMHS 03/11/20 [History Confirmed 08/13/20] [id number]-[id number] 1 tab PO DAILY 03/11/20 [History Confirmed 08/13/20] nitroglycerin [Nitrostat] 0.4 mg SUBLINGUAL DIRECTED PRN 03/11/20 [History Confirmed 08/13/20] guaifenesin [Mucinex] 600 mg PO Q12 PRN 08/13/20 [History Confirmed 08/13/20] ofloxacin 1 drp OPL QID 08/13/20 [History Confirmed 08/13/20] prednisolone acetate 1 drp OPL QID 08/13/20 [History Confirmed 08/13/20] cephalexin 500 mg PO QID 6 Days #24 cap 08/16/20 [Rx] ferrous sulfate 325 mg PO QAM #30 tab 08/16/20 [Rx] Home Medications Acetaminophen (Acetaminophen 325 Mg Tab) 650 mg PO Q4H PRN PRN Reason: pain/fever Stop: 09/12/20 14:34 Last Admin: 08/21/20 02:32 Dose: 650 mg Documented by: Aspirin (Aspirin 81 Mg Ectab) 81 mg PO QDL [facility] Stop: 09/13/20 11:29 Last Admin: 08/15/20 11:39 Dose: 81 mg Documented by: Cevimeline HCl (Cevimeline Hcl) 1 ea PO TIDM [facility] Stop: 09/12/20 16:59 Last Admin: 08/21/20 07:54 Dose: 1 ea Documented by: Ferrous Sulfate (Ferrous Sulfate 325 Mg Tab) 325 mg PO BIDM [facility] Stop: 09/14/20 16:59 Last Admin: 08/21/20 07:55 Dose: 325 mg Documented by: Guaifenesin (Guaifenesin 600 Mg Tabcr) 600 mg PO Q12 PRN PRN Reason: Congestion Stop: 09/12/20 14:15 Heparin Sodium (Porcine) (Heparin 100 Unit/Ml 5ml Flush) 5 ml FLUSH PRN PRN PRN Reason: Flush Stop: 09/13/20 03:09 Last Admin: 08/21/20 05:57 Dose: 5 ml Documented by: Heparin Sodium (Porcine) (Heparin Sod 5,000 Unit/0.5 Ml Vial) 5,000 units SQ Q12 [facility] Stop: 09/14/20 20:59 Last Admin: 08/19/20 20:50 Dose: 5,000 units Documented by: Piperacillin Sod/Tazobactam (Sod 3.375 gm/ Dextrose) 115 mls @ 28.75 mls/hr IV Q8H [facility]; Protocol Stop: 08/22/20 07:59 Last Admin: 08/21/20 09:09 Dose: 28.8 mls/hr Documented by: Pantoprazole Sodium 40 mg/ (Syringe) 10 mls @ 5 mls/min IV BID [facility] Stop: 09/17/20 20:59 Last Admin: 08/21/20 07:54 Dose: 5 mls/min Documented by: Methylprednisolone 1,000 mg/ (Dextrose) 266 mls @ 266 mls/hr IV DAILY [facility] Stop: 09/19/20 08:59 Last Infusion: 08/21/20 09:08 Dose: Infused Documented by: Immune Globulin (Immune Globulin (Human) Subcut 2 Gm/10 Ml Inj) 4 gm SC Fr@1615,1630 [facility] Stop: 09/16/20 16:14 Last Admin: 08/17/20 16:05 Dose: 4 gm Documented by: Isosorbide Mononitrate (Isosorbide [place] Extended Rel 60 Mg Tabcr) 60 mg PO QAM [facility] Stop: 09/13/20 08:59 Last Admin: 08/21/20 07:55 Dose: 60 mg Documented by: Lansoprazole (Lansoprazole 30 Mg Soltab) 30 mg PO BID [facility] Stop: 09/17/20 08:59 Last Admin: 08/18/20 10:02 Dose: Not Given Documented by: Loperamide HCl (Loperamide Hcl 2 Mg Cap) 2 mg PO Q6H PRN PRN Reason: Diarrhea Stop: 09/19/20 10:58 Last Admin: 08/21/20 05:57 Dose: 2 mg Documented by: Magnesium Oxide (Magnesium Oxide 400 Mg Tab) 400 mg PO QAM [facility] Stop: 09/13/20 08:59 Last Admin: 08/21/20 07:54 Dose: 400 mg Documented by: Metoprolol Tartrate (Metoprolol Tartrate 25 Mg Tab) 75 mg PO AMHS [facility] Stop: 09/12/20 20:59 Last Admin: 08/21/20 08:00 Dose: Not Given Documented by: Mirtazapine (Mirtazapine Tab 15 Mg Tab) 15 mg PO HS [facility] Stop: 09/19/20 20:59 Last Admin: 08/20/20 20:25 Dose: 15 mg Documented by: Miscellaneous Information (Piperacill/Tazobac Consult Active) 1 ea N/A UD PRN PRN Reason: Consult Stop: 08/22/20 07:59 Nitroglycerin (Nitroglycerin Sl 0.4 Mg/Tab Tab) 0.4 mg SL PRN PRN PRN Reason: Chest Pain Stop: 09/12/20 14:15 Ondansetron HCl (Ondansetron 4 Mg Od Tab) 4 mg PO Q8H PRN PRN Reason: Nausea Stop: 09/12/20 15:35 Last Admin: 08/16/20 17:19 Dose: 4 mg Documented by: Prednisolone Acetate (Prednisolone Acetate 1% Op Susp 5 Ml Btl) 1 drops OPR DAILY [facility] Stop: 09/16/20 08:59 Last Admin: 08/21/20 07:55 Dose: 1 drops Documented by: Prednisolone Acetate (Prednisolone Acetate 1% Op Susp 5 Ml Btl) 1 drops OPL TID [facility] Stop: 09/16/20 08:59 Last Admin: 08/21/20 07:55 Dose: 1 drops Documented by: Prednisone (Prednisone 1 Mg Tab) 3 mg PO QAM [facility] Stop: 09/13/20 08:59 Last Admin: 08/21/20 07:55 Dose: 3 mg Documented by: Raloxifene HCl (Raloxifene Hcl 60 Mg Tab) 60 mg PO QDD [facility] Stop: 09/15/20 16:29 Last Admin: 08/20/20 17:52 Dose: 60 mg Documented by: Ranolazine (Ranolazine 500 Mg Er Tab) 500 mg PO AMHS [facility] Stop: 09/12/20 20:59 Last Admin: 08/21/20 07:54 Dose: 500 mg Documented by: Simvastatin (Simvastatin 40 Mg Tab) 40 mg PO HS [facility] Stop: 09/12/20 20:59 Last Admin: 08/20/20 20:28 Dose: 40 mg Documented by: PG Care Time/CCT Total # of Minutes Spent Total Time Spent with Patient: Total time spent is greater than 50% in coordination of care (as documented) at patient's floor/unit and/or counseling patient:50 Coding Level of Care Code 70056 Subseq Hosp Care Lvl 3 Diagnoses Encephalopathy G93.40 Acute UTI N39.0 Lung cancer C34.90 Laterality: unspecified laterality Lung location: unspecified part of lung HTN (hypertension) I10 CAD, multiple vessel I25.10 Coronary artery bypass grafts x 4 Z95.1 Anemia D64.9 (1) Lung cancer Laterality: unspecified laterality Lung location: unspecified part of lung Qualified Code(s): C34.90 - Malignant neoplasm of unspecified part of unspecified bronchus or lung
[2020-08-21 11:41] LABS: Hematocrit (blood only) 27.6 % (37-47); Hemoglobin 8.7 g/dL (12.0-16.0)
--- NOTE | 2020-08-21 14:01 | Palliative Care Progress Note ---
Date of Service August 21, 2020 Assessment & Plan (1) Palliative care encounter: Discussed plan moving forward. She does not want to go to a SNF for rehab. She would like to go home with snf and PT support at home. She is not receiving further treatment for her lymphoma or NSCLC but does continue to get IVIG and both she and her feel that this is helping her. They definitely want to continue this treatment at the present time. Plan will be home with [facility]iative Care to follow. Will follow up for outpatient palliative care after discharge. Admission and Anticipated Discharge Date Admission Date: August 14, 2020 Subjective Sitting in chair at bedside. Denies pain or dyspnea. She is very anxious to go home. Review of Systems Review of Systems: [place] Symptom Assessment Scale Pain 0/3 Dyspnea 0/3 Fatigue 2/3 Anxiety 2/3 Nausea 0/3 Drowsiness 0/3 Palliative Performance Score 50% Physical Exam Constitutional: + thin and + frail appearing Respiratory: normal respiratory effort; no labored breathing Cardiovascular: Extremities: no edema Gastrointestinal (Abdomen): Inspection/Auscultation: abdomen not distended Musculoskeletal: Extremities: + muscle atrophy Neurologic: awake and + confused (mild) Results & Data ([facility]) Vital Signs (Past 12 Hours) Vital Signs Temp Pulse Pulse Resp BP Pulse Ox 08/21/20 11:36 97.5 F L 91 H 20 171/94 H 98 08/21/20 08:06 97.3 F L 83 18 145/81 H 98 08/21/20 04:04 97.9 F 79 18 172/76 H 98 PG Care Time/CCT Total # of Minutes Spent Total Time Spent with Patient: Total time spent is greater than 50% in coordination of care (as documented) at patient's floor/unit and/or counseling patient: Coding Level of Care Code 56631 Subseq Hosp Care Lvl 2 Diagnoses Palliative care encounter Z51.5
--- NOTE | 2020-08-21 15:21 | Neurology Progress Note ---
Date of Service August 21, 2020 Assessment & Plan (1) Encephalopathy: Naila Vega is a 75 year old woman w/ PMH of CAD s/p CABG, Ischemic Cardiomyopathy (LVEF 45% to 50%), HTN, HLD, metastatic NSCLC (no longer a candidate for chemotherapy), Gastric Lymphoma (in remission), Sjogren's Syndrome on chronic steroids, COPD, protein-energy malnutrition, autoimmune hepatitis, and chronic angina who was initially admitted to [facility] on 08/13/20 with generalized weakness and suspected UTI, found to have a UTI. Hospital course c/b AMS/lethargy after IV benadryl on 08/17/20 which has slowly been improving. Work-up: - EEG: moderate generalized encephalopathy - MRI brain: mild SVID, microhemorrhage in left posterior frontal lobe, mild generalized atrophy w/ ex vacuo dilation, no acute infarct, punctuate chronic infarct in the right occipital lobe - CTA H&N: no LVO, high grade stenosis or aneurysm noted - Ca low (7.2), Mg 1.8, Phos (not checked), NH3 <10, TSH WNL, UA no infection - CSF studies: 2 WBC, 0 RBC, glucose 79, protein 40.3, CSF biofire negative, autoimmune encephalitis panel pending # AMS: likely in the setting of infection, underlying health conditions, toxic- metabolic changes and possibly hospital acquired delirium (due suspect that she has underlying MCI vs mild dementia at baseline given exam findings) - f/u autoimmune encephalitis panel (usually takes several weeks to get results back); is already on chronic steroids and IVIG as an outpatient, would not pursue further IV steroids as unlikely to beneficial and unlikely to be due to autoimmune encephalitis - delirium precautions, lights on during day/off at night, minimize use of opiates/benzos/anti-cholinergics, frequent re-orientation - would complete AMS workup with thiamine, B12 and Phos levels (ordered) - f/u with Dr Dowd or CHARLES Rodriguez, in 4-6 weeks after results of autoimmune encephalitis panel available Thank you for this interesting consult. Plan of care discussed with primary team. Please call or text with questions. (2) Gram negative sepsis: (3) Immune deficiency disorder: (4) Severe protein-calorie malnutrition: Admission and Anticipated Discharge Date Admission Date: August 14, 2020 Subjective NAEs overnight. Did receive two doses of IV solumedrol, though was improving even before this. Already on IVIG at home and chronic prednisone. Reports that she is doing well today, got up and walked the hallways with PT with a walker and ate all of her lunch. Would like to go home soon if at all possible. Review of Systems Review of Systems: 10 point review of systems completed and negative except as in HPI. Results & Data ([facility]) Vital Signs (Past 12 Hours) Vital Signs Temp Pulse Pulse Resp BP Pulse Ox 08/21/20 11:36 36.4 C L 91 H 20 171/94 H 98 08/21/20 08:06 36.3 C L 83 18 145/81 H 98 08/21/20 04:04 36.6 C 79 18 172/76 H 98 Exam (Neuro) Physical Exam: General Exam: GEN: NAD, sitting in chair. HEENT: No conjunctival injection, no rhinorrhea. CV: RRR, no peripheral edema PULM: Nonlabored respirations on room air. Neuro Exam: MS: Awake and Alert. Oriented to person, place, not date. Speech fluent and appropriate without dysarthria or paraphasic errors. Language intact including naming, comprehension, repetition. Cognition and memory mildly impaired. Attention intact. No neglect. CN: Visual day full. No extinction to double simultaneous stimuli. EOMI without nystagmus. Facial sensation intact to LT. Facial muscles full and symmetric. Hearing intact to conversation. MOTOR: Normal bulk and tone. No pronator drift. All extremities antigravity without drift. REFLEXES: 2+ at biceps, triceps, brachioradialis, 2+ patella and Achilles bilaterally. Flexor plantar responses bilaterally. SENSORY: Intact to LT without extinction to double simultaneous stimuli. COORDINATION: No dysmetria or ataxia on [id number]. Mild fine, high frequency tremor on outstretch. GAIT: deferred given physical status PG Care Time/CCT Total # of Minutes Spent Total Time Spent with Patient: Total time spent is greater than 50% in coordination of care (as documented) at patient's floor/unit and/or counseling patient: Coding Level of Care Code 71413 Subseq Hosp Care Lvl 2 Diagnoses Encephalopathy G93.40 Gram negative sepsis A41.50 Immune deficiency disorder D84.9 Severe protein-calorie malnutrition E43
[2020-08-21] MEDS ORDERED: POTASSIUM PHOS 3 MMOL/1 ML INFUSION IV STA (16:47)
[2020-08-21] MEDS: RALOXIFENE HCL 60 MG TAB PO SCH (17:11)
[2020-08-21] MEDS ORDERED: POTASSIUM PHOSPHATE 40 MMOL in SODIUM CHLORIDE 0.9% 1000ML 1,000 ML IV ONE (17:15)
[2020-08-21] MEDS ORDERED: MELATONIN 3 MG TAB PO PRN (20:09)
[2020-08-21] MEDS: MIRTAZAPINE TAB 15 MG TAB PO SCH (20:34)
[2020-08-21] MEDS: SIMVASTATIN 40 MG TAB PO SCH (20:35)
[2020-08-22] MEDS: HEPARIN 100 UNIT/ML 5ML FLUSH FLUSH PRN ×3 (06:04→11:22)
[2020-08-22 06:42] LABS: BUN Creatinine Ratio 27.5 (10-20); Calcium 6.9 mg/dl (8.5-10.1); Creatinine Clr Calc Pharmacy 40.4 ml/min; Est GFR (African American) 91.2; Est GFR (Non-African American) 78.7; Potassium 3.7 mmol/L (3.5-5.1)
[2020-08-22] MEDS: methylPREDNISolone 1,000 MG in DEXTROSE 5% 250 ML IV SCH (07:28)
[2020-08-22] MEDS: CEVIMELINE HCL PO SCH ×2 (07:28→11:30)
[2020-08-22] MEDS: PANTOprazole 40 MG in SYRINGE 0 ML IV SCH (07:28)
[2020-08-22] MEDS: MAGNESIUM OXIDE 400 MG TAB PO SCH (07:29)
[2020-08-22] MEDS: METOPROLOL TARTRATE 25 MG TAB PO SCH (07:29)
[2020-08-22] MEDS: predniSONE 1 MG TAB PO SCH (07:29)
[2020-08-22] MEDS: ISOSORBIDE MONO EXTENDED REL 60 MG TABCR PO SCH (07:29)
[2020-08-22] MEDS: prednisoLONE acetate 1% OP SUSP 5 ML BTL OPL SCH (07:29)
[2020-08-22] MEDS: RANOLAZINE 500 MG ER TAB PO SCH (07:29)
[2020-08-22] MEDS: FERROUS SULFATE 325 MG TAB PO SCH (07:30)
[2020-08-22] MEDS: LOPERAMIDE HCL 2 MG CAP PO PRN (07:52)
[2020-08-22 20:02] LABS: Lyme DNA PCR CSF or Synovial Not detected (Not Detected); Lyme DNA Source CSF
--- NOTE | 2020-08-26 14:15 | Discharge Summary ---
Date of Service August 22, 2020 Admission HPI Per Admitting Provider Naila Vega is a 75-year-old female with metastatic non-small cell lung cancer, Sjogren's, history of large B cell non-Hodgkin's lymphoma, history of ANTONIETTA, and bronchiectasis who presents to the ER with generalized weakness for past 5 days. She is currently not undergoing any chemotherapy due to decreased performance status. She denies any change in her chronic cough. No loss of taste or smell, diarrhea, abdominal pain, fever, chills, shortness of breath or known COVID-19 exposure. She denies any chest pain, orthopnea, PND, claudication, presyncope or syncope. In the ER, she was found to have a possible UTI. Antibiotics were given and admission was called. The patient reports she recently have glaucoma surgery last week and she has not recovered. Her states she has had a poor appetite, but she has not lost any more weight in the past few months. She understands her poor prognosis but states she does not feel it is time for a palliative care consult. She is not very active at home, and only ambulats from her room to the living room. Her home is two [facility] but they have a chair lift installed. She has been vaccinated with the COVID vaccine (both doses) over 4 weeks ago.. Principal Diagnosis Metabolic encephalopathy Discharge Exam Constitutional well developed, + thin, + frail appearing and comfortable; no acute distress Eyes PERRL, conjunctivae normal, anicteric sclerae ENMT external ear and nose normal, oropharynx normal Neck trachea midline, no thyromegaly Respiratory normal respiratory effort, lungs clear to auscultation Cardiovascular RRR, no murmur, no edema Gastrointestinal (Abdomen) normal bowel sounds, soft, nontender, no hepatosplenomegaly Musculoskeletal no cyanosis or clubbing, extremities motor strength 5/5 Skin no rashes, warm and dry Neurologic patellar DTR's 2+ bilat, sensation intact and PERRL, EOMI, accommodation nl, no face palsy, no dysarthria Psychiatric Orientation: alert, oriented to person, oriented to place and cooperative; + not oriented to time Lymphatic no cervical or axillary lymphadenopathy Discharge Data Allergies Allergy/AdvReac Type Severity Reaction Status Date / Time No Known Allergies Allergy Verified 08/13/20 13:05 Consultations 08/13/20 13:40 ED Decision to Admit Stat 08/15/20 11:09 Consult Gastroenterology Routine 08/17/20 09:35 Consult Neurology Stat 08/20/20 08:00 Consult Palliative Care Routine Ordered Studies 08/13/20 12:21 CT angio chest PE protocol Stat CT head/brain wo con Stat 08/17/20 09:07 CT head/brain wo con Stat 08/17/20 09:37 CT angio head w con Stat CT angio neck with con Stat 08/17/20 09:41 MR brain wo/w con Stat 08/17/20 10:30 US venous doppler LE BI Stat 08/19/20 09:14 CT abd pelvis IV con only Urgent 08/20/20 08:00 FL lumbar puncture diagnostic Routine Hospital Course (1) Encephalopathy: (1) Encephalopathy: toxic vs metabolic, either way she is markedly improved the past 72 hours, will go home with home health and Patient initially admitted on 08/13/2020 with 5 days of weakness and worsening confusion by her , admitted with sepsis secondary to gram negative bacilli, UTI, Klebsiella -- She was found to have urinary tract infection -- 1x dose Ceftriaxone in ER. -- Continued on Cefepime 08/13 given fever 39.2C however blood cultures were not drawn until after this was started and she had a repeat temperature. -- Patient had been doing well until the morning of 08/17 when she was increasingly confused and not able to commands and stroke alert was called. -- Imaging negative for acute CVA. -- EEG consistent with encephalopathy but no seziure activity -- Neurology started on Keppra 08/18 for possible subclinical seizures, but patient was more lethargic. Subsequently discontinued. -- Blood cultures from 08/14 and 08/16 : no growth patient improved over 3 days, consider Cefepime as culprit causing toxicity less likely to be limbic encephalitis, stopped high dose steroids discharge to home with home therapy, PT/OT (2) Acute UTI: -- Admitted with generalized weakness for the past 5 days -- could also be secondary to progressive small cell lung cancer and worsening anemia. -- Completed a course of IV antibiotics as above for Klebsiella UTI. -- Repeat UA without signs of infection. -- Remains asymptomatic. (3) Lung cancer: -- History of NSCLC, no longer getting chemo. Also with a history of large B cell Hodgkin Lymphoma. -- Discussed with oncology -- no more chemo as patient not able to tolerate and had been just routine follow up for symptoms with next appointment next week. -- Patient met with Palliative Medicine yesterday, agrees to pursue this avenue. (4) HTN (hypertension): -- Continue Lopressor - consider switch to Metoprolol Succinate ER at discharge. -- BP readings variable. -- Hydralazine IV as needed. (5) CAD, multiple vessel: -- No angina pectoris, asymptomatic. -- Continue usual cardiac regimen. (6) Coronary artery bypass grafts x 4: -- CABG x 4 vessels 2011. -- No angina pectoris, asymptomatic. -- Continue usual cardiac regimen. (7) Anemia: -- Hgb is low but stable, no need for transfusion, follow outpatient I certify that this patient is under my care and that I, or a physicians metal moulder's assistant working with me, had a face to-face encounter that meets the home health iikf-ki-yaug encounter requirements with this patient. The encounter with the patient was in whole, or in part, for the following medical condition, which is the primary reason for home health care (list medical condition): I certify that, based on my findings, the following services are medically necessary home health services: My clinical findings support the need for the above services because: Skilled Nsg Assessment Further, I certify that my clinical findings support that this patient is homebo und (i.e. absences from home require considerable and taxing effort and are for medical reasons or caodaism services or infrequently or of short duration when for other reasons) because: Certification for Home Health Services: Based on the above findings, I certify that this patient is confined to the home and needs intermittent shelter care, physical therapy and/or speech therapy or continues to need occupational therapy. The patient is under my care, and I have initiated the establishment of the plan of care. This patient will be followed by a physician who will periodically review the plan of care. (2) Lung cancer: (3) Acute UTI: (4) Fever: (5) HTN (hypertension): (6) Hyperlipemia: (7) Lymphedema: (8) Weakness: (9) Anemia: Total Time Total Time Spent Total Time Spent (In Minutes): 33 Total Time Includes: Examination of the Patient, Discharge Planning, Medication Reconciliation and Communication With Other Providers (Dr. Zaman) Discharge Plan Discharge Items Patient Disposition: Home - Self-Care Reason For Visit: WEAKNESS Discharge Diagnosis: UTI Condition on Discharge: Fair Goals: You have been hospitalized for an acute medical problem. During your stay at [facility], we have made an effort to correct the problem that brought you to the hospital while keeping you as comfortable as possible. Medications were used to bring your condition under control and your discharge instructions will include directions for any medications you should take after leaving the hospital. Please make sure you see your Primary Care Provider as part of your follow up plan. Activity: Resume your previous activity Lifting: Gradually increase as tolerated Bathing: No limitations Sexual Activity: When tolerated Exercise/Sports: Gradually increase as tolerated Driving/Machine Use: No driving Weightbearing: Full weightbearing Weightbearing Comment: Ambulate using a walker for balance and to prevent falls. Non-emergency contact: Primary Care Provider and Oncologist Call non-emergency contact if: you have any medication questions, your symptoms worsen and your pain is not controlled Follow-up/Referrals: Evin Villalpando MD [Primary Care Provider] - 08/20/20 10:00 am Luis Manuel Andino [Physician] - 08/31/20 9:20 am (VISIT WILL BE AT [facility] ) Margarita Funes CRNP [Nurse Practitioner] - (already has appointment next Thursday) Diet: Heart Healthy Diet Texture: Easy to Chew Addtl Attending Provider Instructions: You have been hospitalized for weakness and found to have a urinary tract infection. You were treated with antibiotics and are being sent home with continued antibiotics with Keflex 500mg by mouth four times daily for another 6 days to complete a TEN day course. You already got a dose of IV antibiotics today and can start these tomorrow. Imaging did show progression of your cancer, as discussed, and you may follow up with Margarita Funes next Thursday for further discussion. Your lung mass has increased in size and discussion was had with promotions intern, Dr. Galicia who did not feel this was a post-obstructive pneumonia like you had last year and did not feel this needed antibiotics for this. Your blood counts were found to be lower than usual and iron studies were checked and were low as well as blood in your use. You were started on oral iron supplementation and will continue this at discharge. You were also given an iron transfusion today and can follow up with oncology for further transfusions as needed. You were seen by gastroenterology who felt the bleeding is likely from chronic prednisone and aspirin but that you are not a candidate for EGD/scope and should continue your protonix TWICE daily and STOP your aspirin. You will need to have follow up with hematology/oncology in the next week as scheduled and should follow up with primary care in the next week to monitor your progress since discharge. Therapy has completed evaluations and felt you were stable for discharge. Please return to the emergency department with any worsening weakness, shortness of breath, chest pain, or for any other symptoms that are concerning for you. It has been a pleasure being a part of the medical team providing for you while you have been in the hospital. Take care! Addtl Mastic Sprayer Provider Instructions: As per Palliative Medicine "She would like to go home with shelter and PT support at home. She is not receiving further treatment for her lymphoma or NSCLC but does continue to get IVIG and both she and her feel that this is helping her. They definitely want to continue this treatment at the present time. Plan will be home with [facility] Home Care/Palliative Care to follow. Will follow up for outpatient palliative care after discharge." Pending Studies at Discharge: Yes Studies:: Blood cultures -- no growth to date Stand-Alone Forms: My [facility] [place] [employer] Medications and DC Order Prescriptions: New ferrous sulfate 325 mg (65 mg iron) Tablet,Delayed Release (Dr/Ec) 325 mg PO QAM Qty: 30 RF: 0 Continued prednisone 1 mg tablet,delayed release (DR/EC) 3 mg PO QAM RF: 0 Hizentra 4 gram/20 mL (20 %) solution 8 gm SQ WEEKLY RF: 0 Calcium 600 + D(3) 600 mg calcium- 200 unit Capsule 1 cap PO BIDM RF: 0 pantoprazole 40 mg tablet,delayed release (DR/EC) 40 mg PO QAM RF: 0 prochlorperazine maleate [Compazine] 10 mg Tablet 10 mg PO Q8H PRN (Reason: Nausea) RF: 0 benzonatate 100 mg capsule 100 mg PO Q6H PRN (Reason: Cough) RF: 0 metoprolol tartrate 50 mg tablet 75 mg PO AMHS RF: 0 ilanzlzmvujo-sigxglqt-atkkjx Tablet 1 tab PO DAILY RF: 0 nitroglycerin [Nitrostat] 0.4 mg tablet, sublingual 0.4 mg Sublingual DIRECTED PRN (Reason: Chest Pain) RF: 0 epinephrine [EpiPen] 0.3 mg/0.3 mL auto-injector 0.3 mg IM Q3H PRN (Reason: Infusion Reaction) RF: 0 albuterol sulfate 90 mcg/actuation HFA aerosol inhaler 2 puffs INH AMPM RF: 0 Plexus-Probio 5 1 dose PO DAILY RF: 0 potassium chloride 10 mEq Capsule, Extended Release 10 meq PO TIDM RF: 0 simvastatin 40 mg Tablet 40 mg PO HS RF: 0 isosorbide mononitrate 60 mg Tablet Extended Release 24 Hr 60 mg PO QAM RF: 0 cevimeline 30 mg Capsule 30 mg PO TIDM RF: 0 raloxifene 60 mg Tablet 60 mg PO QPM RF: 0 magnesium 250 mg Tablet 500 mg PO QAM RF: 0 ondansetron 4 mg Tablet,Disintegrating 8 mg PO Q8H PRN (Reason: Nausea) RF: 0 ranolazine [Ranexa] 500 mg Tablet Extended Release 12 Hr 500 mg PO AMHS RF: 0 ofloxacin 0.3 % drops 1 drp OPL QID RF: 0 prednisolone acetate 1 % drops,suspension 1 drp OPL QID RF: 0 guaifenesin [Mucinex] 600 mg tablet extended release 12hr 600 mg PO Q12 PRN (Reason: Congestion) RF: 0 Discontinued aspirin [Aspirin Low Dose] 81 mg Tablet,Delayed Release (Dr/Ec) 81 mg PO QAM RF: 0 Discharge Orders: Discharge Order (Routine); Ordered 08/22/20 Ordered By: Elliott Valero/Other Patient Handouts: What Is Palliative Care? Admission Data Admit Date/Time: 08/14/20 16:25 Attending Provider: Elliott Tapia Admit Provider: Steven Byrd Primary Care Provider: Evin Villalpando Other Providers: Steven Byrd ; Luis Manuel Andino ; Delroy Dowd ; Helen Dunbar ; [facility],Home Healthcare Other Interventions: Discharge Summary Assessment (RN) Last Done: 08/22/20 11:37 Coding Level of Care Code D/C Day Management >30 mins Diagnoses Encephalopathy G93.40 Lung cancer C34.90 Laterality: unspecified laterality Lung location: unspecified part of lung Acute UTI N39.0 Fever R50.9 HTN (hypertension) I10 Hyperlipemia E78.5 Lymphedema I89.0 Weakness R53.1 Anemia D64.9
== END 2020-08-22 13:00 | disposition hospice, home (50) | DRG 871 ==
LOC: ED 11:21 → 3W 11:21 → SUATTDRO 14:36 → 3W 15:17 → SUATTDRO 08-14 16:25 → 2N 08-17 10:08

== ENCOUNTER 2021-05-06 13:48 | Inpatient (IN) ==
[2021-05-06] MEDS ORDERED: MoRPHine SULFATE 2 MG/ML CARP IV STA ×2 (14:47→15:26)
[2021-05-06] MEDS ORDERED: ONDANSETRON INJ 2 MG/ML 2 ML VIAL IV STA (14:47)
--- NOTE | 2021-05-06 14:47 | Emergency Department Note ---
History of Present Illness General Chief complaint: Chest Pain Stated complaint: CHEST PAIN Time Seen by Provider: 05/06/21 14:46 Source: patient, RN notes reviewed and old records reviewed Mode of arrival: ambulatory Limitations: no limitations History of Present Illness Maximum Pain Intensity: 10 This patient is a 76-year-old female who has a history of lung cancer comes in with diffuse pain and shortness of breath she has felt sick since before [place] with pain increasing shortness of breath she wears 2 L at home. No fall or trauma. She said she stopped treatment for lung cancer a year and a half ago it is on the right side. She has had no fever she had the COVID- vaccine and booster. She has had some dry heaves she feels dry. She does have some abdominal pain. she has history of cardiac disease but says this feels different Home Medications Medication Instructions Recorded Confirmed Type cevimeline 30 mg capsule 30 mg PO TIDM 06/21/18 05/06/21 History isosorbide mononitrate 60 mg 60 mg PO QAM 06/21/18 05/06/21 History tablet,extended release 24 hr magnesium 250 mg tablet 500 mg PO QAM 06/21/18 05/06/21 History ondansetron 4 mg disintegrating 8 mg PO Q8H PRN 06/21/18 05/06/21 History tablet potassium chloride 10 mEq 10 meq PO TIDM 06/21/18 05/06/21 History capsule,extended release raloxifene 60 mg tablet 60 mg PO QPM 06/21/18 05/06/21 History ranolazine 500 mg tablet,extended 500 mg PO AMHS 06/21/18 05/06/21 History release,12 hr (Ranexa) simvastatin 40 mg tablet 40 mg PO HS 06/21/18 05/06/21 History calcium carbonate 600 mg-vitamin 1 cap PO BIDM 09/06/18 05/06/21 History D3 5 mcg (200 unit) capsule (Calcium 600 + D(3)) pantoprazole 40 mg tablet,delayed 40 mg PO QAM 09/23/18 05/06/21 History release immun glob G 4 gram/20 mL(20 8 gm SQ WEEKLY ml 02/16/19 05/06/21 History %)-prol-IgA 0-50 mcg/mL subcutaneous soln (Hizentra) prednisone 1 mg tablet,delayed 3 mg PO QAM tab 02/16/19 05/06/21 History release prochlorperazine maleate 10 mg 10 mg PO Q8H PRN 04/05/19 05/06/21 History tablet (Compazine) Plexus-Probio 5 1 dose PO DAILY 03/11/20 05/06/21 History albuterol sulfate 90 mcg/actuation 2 puffs INH AMPM 03/11/20 05/06/21 History aerosol inhaler epinephrine 0.3 mg/0.3 mL 0.3 mg IM Q3H PRN 03/11/20 05/06/21 History injection, auto-injector (EpiPen) metoprolol tartrate 50 mg tablet 75 mg PO AMHS 03/11/20 05/06/21 History jqvodndzplcf-orztuvsw-ajbayd tablet 1 tab PO DAILY 03/11/20 05/06/21 History nitroglycerin 0.4 mg sublingual 0.4 mg SUBLINGUAL DIRECTED PRN 03/11/20 05/06/21 History tablet (Nitrostat) guaifenesin 600 mg tablet, 600 mg PO Q12 PRN 08/13/20 05/06/21 History extended release 12 hr (Mucinex) Premier Drink 1 ea PO BID 05/06/21 05/06/21 History food supplemt, lactose-reduced 1 ea PO DAILY 05/06/21 05/06/21 History Allergies Allergy/AdvReac Type Severity Reaction Status Date / Time No Known Allergies Allergy Verified 05/06/21 18:02 Past Med/Surg History Medical History CAD (coronary artery disease), [place] coronary artery With stable angina COPD exacerbation Diarrhea GERD (gastroesophageal reflux disease) DIET CONTROLLED Glaucoma History of lung cancer dx 2018 chemo History of lymphoma dx 2016, in remission Hyperlipidemia Hypertension Hypogammaglobulinemia Immunodeficiency Immunosuppression Insomnia Mitral regurgitation mild to moderate Osteoporosis Palliative care encounter Sjogren's disease Steroid dependence sjogrens disease TIA (transient ischemic attack) 12/14/2018, TIA vs possible seizure. Weakness Surgical History History of arthroscopy RIGHT KNEE MENISCUS History of cataract surgery RT History of cholecystectomy History of colonoscopy History of coronary artery bypass graft 4 VESSEL, [facility] 6 YEARS AGO History of hysterectomy Family History Unknown Heart disease Other Family history non-contributory Social History Smoking Status: Never smoker Second Hand Exposure: No; Hx Alcohol Use: No Hx Substance Use: No Preferred Language: Egyptian Communication Ability: Effective Coding Technician Required: No Beliefs That Will Affect Care: None marital status: Current Living Situation: Spouse current occupational status: retired 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 Feels Safe at Home: Yes Assistive Devices: Walker Review of Systems A total of 10 systems reviewed and were otherwise negative Physical Exam Vital Signs Vital Signs - 24 hr 05/06/21 13:55 05/06/21 15:14 05/06/21 15:17 Temperature 36.3 C L Temperature Source Temporal Artery Scan Pulse Rate 94 H Pulse Rate [Finger] 93 H Respiratory Rate 22 30 H Blood Pressure 165/95 H Blood Pressure [Right Arm] 170/97 H Blood Pressure Mean 118 Blood Pressure Mean [Right Arm] 121 Pulse Oximetry 95 95 95 Oxygen Delivery Method Nasal Cannula Nasal Cannula Nasal Cannula Oxygen Flow Rate 3 3 3 Sepsis Recent Fever Within 48 Hours No Sepsis New/Unexplained Change in Mental Status N/A Sepsis Action Taken by Nursing No Action Required 05/06/21 17:29 Temperature Temperature Source Pulse Rate Pulse Rate [Finger] 94 H Respiratory Rate 18 Blood Pressure Blood Pressure [Right Arm] 152/96 H Blood Pressure Mean Blood Pressure Mean [Right Arm] 114 Pulse Oximetry 98 Oxygen Delivery Method Nasal Cannula Oxygen Flow Rate 3 Sepsis Recent Fever Within 48 Hours Sepsis New/Unexplained Change in Mental Status Sepsis Action Taken by Nursing General: Well developed well nourished somewhat cachectic she appears in discomfort secondary to pain is mildly tachypneic but has Normal speech HEENT: Normal cephalic atraumatic. Pupils are equal round and reactive to light. Extraocular movements are intact. Oropharynx is pink with moist mucous membranes. No swelling of the mouth lips or tongue. Neck: Supple with a midline trachea. No meningeal signs or stiffness, no JVD or bruits. No Stridor. Chest: Clear to auscultation on the left. Diminished breath sounds on the right no wheezes or rhonchi. No increased work of breathing. Heart: Regular rate and rhythm without murmurs or gallops. Abdomen: Soft nontender, nondistended without rebound guarding or rigidity. Extremities: No cyanosis clubbing or edema. No calf tenderness or assymetry Spine/Back. Non tender to palpation. No CVA tenderness Skin: Good turgor without rashes. Neurologic exam: Cranial nerves two through 12 are intact. Motor and sensation are intact and symmetrical throughout. Course Administered Medications Enoxaparin Sodium (Enoxaparin Inj 40 Mg/0.4 Ml Syr) 40 mg SQ Q24H RANI Stop: 06/05/21 17:02 Last Admin: 05/06/21 18:12 Dose: Not Given Documented by: [id number] Loperamide HCl (Loperamide Hcl 2 Mg Cap) 2 mg PO Q6H PRN PRN Reason: diarrhea Stop: 06/05/21 17:44 Last Admin: 05/06/21 18:17 Dose: 2 mg Documented by: [id number] Discontinued Medications Piperacillin Sod/Tazobactam (Sod 4.5 gm/ Dextrose) 120 mls @ 30 mls/hr IV Q8H RANI; Protocol Stop: 05/13/21 17:14 Last Admin: 05/06/21 18:39 Dose: Not Given Documented by: [id number] Piperacillin Sod/Tazobactam (Sod 3.375 gm/ Dextrose) 115 mls @ 230 mls/hr IV NOW ONE; Protocol Stop: 05/06/21 18:29 Last Admin: 05/06/21 18:17 Dose: 230 mls/hr Documented by: [id number] Ketorolac Tromethamine (Ketorolac Tromethamine 15 Mg/Ml Vial) 15 mg IV NOW ONE Stop: 05/06/21 17:10 Last Admin: 05/06/21 17:24 Dose: 15 mg Documented by: [id number] Morphine Sulfate (Morphine Sulfate 2 Mg/Ml Carp) 2 mg IV NOW STA Stop: 05/06/21 14:48 Last Admin: 05/06/21 15:06 Dose: 2 mg Documented by: [id number] Morphine Sulfate (Morphine Sulfate 2 Mg/Ml Carp) 2 mg IV NOW STA Stop: 05/06/21 15:27 Last Admin: 05/06/21 15:35 Dose: 2 mg Documented by: [id number] Non-Formulary Medication (Cevimeline) 30 mg PO TIDM RANI Stop: 06/05/21 17:02 Last Admin: 05/06/21 17:48 Dose: Not Given Documented by: [id number] Non-Formulary Medication (Prednisolone Acetate) 1 drops OPL QID RANI Stop: 06/05/21 17:02 Last Admin: 05/06/21 17:47 Dose: Not Given Documented by: [id number] Ondansetron HCl (Ondansetron Inj 2 Mg/Ml 2 Ml Vial) 4 mg IV NOW STA Stop: 05/06/21 14:48 Last Admin: 05/06/21 15:07 Dose: 4 mg Documented by: [id number] Medical Decision Making Differential Diagnosis Cancer related complication, pneumonia, sepsis, COVID, pleural effusion, PE, pn eumothorax, electrolyte or metabolic abnormality, cardiac disease Medical Records Attestation: I reviewed the patient's medical records. Home Medications Current Medication List: was personally reviewed by me Laboratory Data Attestation: I reviewed the patient's lab results. Result diagrams: 05/06/21 14:35 05/06/21 14:35 Lab Results 05/06/21 05/06/21 05/06/21 Range/Units 14:35 14:35 14:35 WBC 7.90 (4.8-10.8) K/uL RBC 4.25 (4.2-5.4) M/uL Hgb 11.7 L (12.0-16.0) g/dL Hct 36.5 L (37-47) % MCV 85.9 (80-100) fL MCH 27.5 (25-34) pg MCHC 32.1 (32-36) g/dL RDW Std Deviation 49.2 H (36.4-46.3) fL RDW Coeff of Marlene 15.7 H (11.5-14.5) % Plt Count 225 (130-400) K/uL MPV 9.5 (7.4-10.4) fL Immature Gran % (Auto) 0.3 % Neut % (Auto) 71.0 % Lymph % (Auto) 16.1 % [place] % (Auto) 12.2 % Eos % (Auto) 0.3 % Baso % (Auto) 0.1 % Neut # (Auto) 5.62 (1.4-6.5) K/uL Lymph # (Auto) 1.27 (1.2-3.4) K/uL [place] # (Auto) 0.96 H (0.11-0.59) K/uL Eos # (Auto) 0.02 (0-0.5) K/uL Baso # (Auto) 0.01 (0-0.2) K/uL Immature Gran # (Auto) 0.02 (0.00-0.02) K/uL PT 9.8 (9.0-12.0) Seconds INR 1.0 (0.9-1.1) APTT 36.7 H (21.0-31.0) Seconds PTT Ratio 1.4 Sodium 130 L (136-145) mmol/L Potassium 4.9 (3.5-5.1) mmol/L Chloride 98 (98-107) mmol/L Carbon Dioxide 28 (21-32) mmol/L Anion Gap 4.0 (3-11) BUN 35 H (7-18) mg/dl Creatinine 0.63 (0.6-1.2) mg/dl Est Cr Clr Drug Dosing Not Reportable Est GFR ( Amer) 100.3 ml/min Est GFR (Non-Af Amer) 86.5 ml/min BUN/Creatinine Ratio 55.0 H (10-20) Glucose 142 H (70-99) mg/dl Calcium 9.2 (8.5-10.1) mg/dl Total Bilirubin 0.3 (0.2-1) mg/dl AST 57 H (15-37) U/L ALT 55 (12-78) Alkaline Phosphatase 128 H (45-117) U/L Troponin I 0.016 (0-0.045) ng/ml Total Protein 7.1 (6.4-8.2) gm/dl Albumin 2.5 L (3.4-5.0) gm/dl Globulin 4.6 H (2.5-4.0) gm/dl Albumin/Globulin Ratio 0.5 L (0.9-2) Lipase 122 (73-393) U/L Procalcitonin (0-0.5) ng/ml SARS-CoV-2, RNA, NAAT (NEGATIVE) 05/06/21 05/06/21 Range/Units 14:35 15:29 WBC (4.8-10.8) K/uL RBC (4.2-5.4) M/uL Hgb (12.0-16.0) g/dL Hct (37-47) % MCV (80-100) fL MCH (25-34) pg MCHC (32-36) g/dL RDW Std Deviation (36.4-46.3) fL RDW Coeff of Marlene (11.5-14.5) % Plt Count (130-400) K/uL MPV (7.4-10.4) fL Immature Gran % (Auto) % Neut % (Auto) % Lymph % (Auto) % [place] % (Auto) % Eos % (Auto) % Baso % (Auto) % Neut # (Auto) (1.4-6.5) K/uL Lymph # (Auto) (1.2-3.4) K/uL [place] # (Auto) (0.11-0.59) K/uL Eos # (Auto) (0-0.5) K/uL Baso # (Auto) (0-0.2) K/uL Immature Gran # (Auto) (0.00-0.02) K/uL PT (9.0-12.0) Seconds INR (0.9-1.1) APTT (21.0-31.0) Seconds PTT Ratio Sodium (136-145) mmol/L Potassium (3.5-5.1) mmol/L Chloride (98-107) mmol/L Carbon Dioxide (21-32) mmol/L Anion Gap (3-11) BUN (7-18) mg/dl Creatinine (0.6-1.2) mg/dl Est Cr Clr Drug Dosing Est GFR ( Amer) ml/min Est GFR (Non-Af Amer) ml/min BUN/Creatinine Ratio (10-20) Glucose (70-99) mg/dl Calcium (8.5-10.1) mg/dl Total Bilirubin (0.2-1) mg/dl AST (15-37) U/L ALT (12-78) Alkaline Phosphatase (45-117) U/L Troponin I (0-0.045) ng/ml Total Protein (6.4-8.2) gm/dl Albumin (3.4-5.0) gm/dl Globulin (2.5-4.0) gm/dl Albumin/Globulin Ratio (0.9-2) Lipase (73-393) U/L Procalcitonin 0.11 (0-0.5) ng/ml SARS-CoV-2, RNA, NAAT NEGATIVE (NEGATIVE) Imaging Data Attestation: I personally reviewed and interpreted this imaging study as follows: My Impression: Chest x-raythere is complete whiteout of the right lungs consistent with my exam. left lung day are clear Radiologist's Impression: Chest X-Ray 05/06/21 14:47 XR chest 1V portable CLINICAL HISTORY: Atypical chest pain TECHNIQUE: Single frontal radiograph of the chest was obtained. Comparison: Comparison is made to chest one view 08/16/2020 FINDINGS: A left portacatheter is unchanged. The cardiomediastinal silhouette is normal. There is opacification of the right hemithorax with slight right tracheal deviation. No pneumothorax is seen. No left pleural effusion. Right effusion cannot be excluded. IMPRESSION: Opacification of the right hemithorax which may reflect consolidation or effusion with a likely component of atelectasis. ACT 112: Negative or not required by law. Electronically signed by: Elliott Moe M.D. 05/06/2021 3:[address] 05/06/21 15:39 CT chest diagnostic wo con CT DOSE: 175.37 mGy.cm CLINICAL HISTORY: 76 years-old Female with right lung whiteout. Patient present s with complete opacification of the right hemithorax. TECHNIQUE: Multiaxial CT images of the chest were performed without contrast. A dose lowering technique was utilized adhering to the principles of ALARA. COMPARISON: CTA chest 08/13/2020 FINDINGS: Multinodular thyroid. Left subclavian Qvfdzi-p-Xcro catheter distal tip terminates in the mid SVC. The heart is normal in size with extensive coronary artery calcifications. Atherosclerosis of the aorta. Prior median sternotomy with CABG. No thoracic aortic aneurysm. Limited evaluation for adenopathy without the use of IV contrast. Paratracheal and subcarinal adenop athy. Trace left and large right pleural effusions. Mild left basilar consolidation. Metastatic nodules throughout the left lung include a 10 mm left upper lobe nodule on image 73 which is new from prior. Nodules of the left lung base measure up to 9 mm in the left lower lobe on image 180. There is volume loss with collapse involving the majority of the right lung with a few air bronchograms and minimally in aerated lung parenchyma. The previously described mass within the right upper lobe is predominantly obscured by the consolidation collapse however appears to measure up to approximately 8.7 cm. Calcific granulomata of the spleen. The study is degraded by respiratory motion artifact. Unremarkable soft tissues. There is no acute fracture identified. There are a few healed chronic anterior bilateral rib fractures. IMPRESSION: 1. The patient's known right upper lobe malignant mass is redemonstrated with margins obscured secondary to partial/near complete collapse of the right lung. 2. Large right and trace left pleural effusions. 3. Progressively worsened pulmonary metastasis throughout the left lung. 4. Mild mediastinal and hilar adenopathy. ACT 112: Negative or not required by law. Electronically signed by: Rubio Lundberg M.D. 05/06/2021 4:35 PM Chest x-ray ECG Data Attestation: I personally reviewed and interpreted this ECG as follows: Indication: + chest pain and + SOB/dyspnea Rate (beats per minute): 91 Rhythm: + normal sinus ECG Intervals/blocks: + Incomplete right bundle branch block, + Normal QT and + Normal [place] ECG [place]: + Normal ECG ST segments: + Normal ST segments ECG Findings: no PACs or no PVCs Comparison ECG Date: from (08/17/20) Change: no significant change MDM Narrative This patient is a 76-year-old female with history of lung cancer, was brought in through triage and the nurse asked me to see her she is in significant discomfort .her vital signs look stable on her oxygen she has decreased breath sounds on that side which may be related to fluid lung or air. Her EKG does not suggest ischemic changes. A port was accessed we did give her morphine 2 mg IV and Zofran 4 mg IV. She was reassessed frequently. She did require additional morphine 2 mg IV. On my exam is concerned that she has decreased breath sounds and on 6 chest x-ray she has a white out of the lung field which is likely tumor and fluid and/or infiltrate. She has no fever or white count to suggest infection and a procalcitonin is not elevated. I did do a noncontrast CT as well which shows a large effusion. I have consulted Dr. [place] and the [facility] team to see her for admission. She will be admitted for further treatment and evaluation. Continuous cardiac monitoring: Orders placed in EMR for continuous cart monitoring Impression & Plan Pleural effusion, Chest pain, SOB (shortness of breath), History of lung cancer, Lab test negative for COVID-19 virus Discharge Plan Visit Data Chief Complaint: Chest Pain Stated Complaint: CHEST PAIN ED Provider: Delroy Braun Discharge Problem: Pleural effusion, Chest pain, SOB (shortness of breath), History of lung cancer, Lab test negative for COVID-19 virus Forms Stand Alone Forms: [facility] Prescriptions Prescriptions: No Action prednisone 1 mg tablet,delayed release (DR/EC) 3 mg PO QAM RF: 0 Hizentra 4 gram/20 mL (20 %) solution 8 gm SQ WEEKLY RF: 0 Calcium 600 + D(3) 600 mg calcium- 200 unit Capsule 1 cap PO BIDM RF: 0 pantoprazole 40 mg tablet,delayed release (DR/EC) 40 mg PO QAM RF: 0 prochlorperazine maleate [Compazine] 10 mg Tablet 10 mg PO Q8H PRN (Reason: Nausea) RF: 0 metoprolol tartrate 50 mg tablet 75 mg PO AMHS RF: 0 ddxhzqvirhek-hktrrape-nzigke Tablet 1 tab PO DAILY RF: 0 nitroglycerin [Nitrostat] 0.4 mg tablet, sublingual 0.4 mg Sublingual DIRECTED PRN (Reason: Chest Pain) RF: 0 epinephrine [EpiPen] 0.3 mg/0.3 mL auto-injector 0.3 mg IM Q3H PRN (Reason: Infusion Reaction) RF: 0 albuterol sulfate 90 mcg/actuation HFA aerosol inhaler 2 puffs INH AMPM RF: 0 Plexus-Probio 5 1 dose PO DAILY RF: 0 potassium chloride 10 mEq Capsule, Extended Release 10 meq PO TIDM RF: 0 simvastatin 40 mg Tablet 40 mg PO HS RF: 0 isosorbide mononitrate 60 mg Tablet Extended Release 24 Hr 60 mg PO QAM RF: 0 cevimeline 30 mg Capsule 30 mg PO TIDM RF: 0 raloxifene 60 mg Tablet 60 mg PO QPM RF: 0 magnesium 250 mg Tablet 500 mg PO QAM RF: 0 ondansetron 4 mg Tablet,Disintegrating 8 mg PO Q8H PRN (Reason: Nausea) RF: 0 ranolazine [Ranexa] 500 mg Tablet Extended Release 12 Hr 500 mg PO AMHS RF: 0 Boost Liquid 1 ea PO DAILY RF: 0 Premier Drink 1 ea PO BID RF: 0 guaifenesin [Mucinex] 600 mg tablet extended release 12hr 600 mg PO Q12 PRN (Reason: Congestion) RF: 0 Referrals Referrals: Evin Villalpando MD [Primary Care Provider] - Discharge Problem: Chest pain Qualifiers: Chest pain type: unspecified Qualified Code(s): R07.9 - Chest pain, unspecified
[2021-05-06 14:50] LABS: Basophils # (auto) 0.01 K/uL (0-0.2); Basophils % (auto) 0.1 %; Eosinophils # (auto) 0.02 K/uL (0-0.5); Eosinophils % (auto) 0.3 %; Hematocrit (blood only) 36.5 % (37-47); Hemoglobin 11.7 g/dL (12.0-16.0); Immature Granulocytes # (auto) 0.02 K/uL (0.00-0.02); Immature Granulocytes % (auto) 0.3 %; Lymphocytes # (auto) 1.27 K/uL (1.2-3.4); Lymphocytes % (auto) 16.1 %; Mean Corpuscular Hemoglobin 27.5 pg (25-34); Mean Corpuscular Hgb Conc 32.1 g/dL (32-36); Mean Corpuscular Volume 85.9 fL (80-100); Mean Platelet Volume 9.5 fL (7.4-10.4); Monocytes # (auto) 0.96 K/uL (0.11-0.59); Monocytes % (auto) 12.2 %; Neutrophils # (auto) 5.62 K/uL (1.4-6.5); Platelet Count 225 K/uL (130-400); RDW Coefficient of Variation 15.7 % (11.5-14.5); RDW Standard Deviation 49.2 fL (36.4-46.3); Red Blood Count 4.25 M/uL (4.2-5.4)
--- NOTE | 2021-05-06 15:07 | XRay Report ---
XR chest 1V portable CLINICAL HISTORY: Atypical chest pain TECHNIQUE: Single frontal radiograph of the chest was obtained. Comparison: Comparison is made to chest one view 08/16/2020 FINDINGS: A left portacatheter is unchanged. The cardiomediastinal silhouette is normal. There is opacification of the right hemithorax with slight right tracheal deviation. No pneumothorax is seen. No left pleur al effusion. Right effusion cannot be excluded. IMPRESSION: Opacification of the right hemithorax which may reflect consolidation or effusion with a likely compo nent of atelectasis. ACT 112: Negative or not required by law. Electronically signed by: Elliott Moe M.D. 05/06/2021 3:06 PM
[2021-05-06 15:09] LABS: Alanine Aminotransferase 55 (12-78); Albumin Level 2.5 gm/dl (3.4-5.0); Aspartate Aminotransferase 57 U/L (15-37); Blood Urea Nitrogen 35 mg/dl (7-18); Calcium 9.2 mg/dl (8.5-10.1); Carbon Dioxide 28 mmol/L (21-32); Chloride 98 mmol/L (98-107); Est GFR (African American) 100.3 ml/min; Est GFR (Non-African American) 86.5 ml/min; Glucose 142 mg/dl (70-99); Lipase 122 U/L (73-393); Potassium 4.9 mmol/L (3.5-5.1); Sodium 130 mmol/L (136-145)
[2021-05-06 15:14] LABS: Albumin Globulin Ratio 0.5 (0.9-2); Alkaline Phosphatase 128 U/L (45-117); Bilirubin,Total 0.3 mg/dl (0.2-1); Globulin 4.6 gm/dl (2.5-4.0); Total Protein 7.1 gm/dl (6.4-8.2); Troponin I 0.016 ng/ml (0-0.045)
--- NOTE | 2021-05-06 15:36 | Electrocardiogram Report ---
Test Reason : Blood Pressure : / mmHG Vent. Rate : 091 BPM Atrial Rate : 091 BPM P-R Int : 148 ms QRS Dur : 104 ms QT Int : 392 ms P-R-T Axes : 000 007 023 degrees QTc Int : 482 ms Poor data quality, interpretation may be adversely affected Normal sinus rhythm Incomplete right bundle branch block Borderline ECG When compared with ECG of 17-AUG-2020 10:29, No significant change was found Confirmed by Sotero Webb ([id number]) on 05/06/2021 3:35:56 PM Referred By: Confirmed By:Sotero Webb
[2021-05-06 16:08] LABS: Partial Thromboplastin Ratio 1.4; Partial Thromboplastin Time 36.7 Seconds (21.0-31.0); Prothrombin Time 9.8 Seconds (9.0-12.0)
--- NOTE | 2021-05-06 16:37 | CT Scan Report ---
CT chest diagnostic wo con CT DOSE: 175.37 mGy.cm CLINICAL HISTORY: 76 years-old Female with right lung whiteout. Patient presents with complete opaci fication of the right hemithorax. TECHNIQUE: Multiaxial CT images of the chest were performed without contrast. A dose lowering techni que was utilized adhering to the principles of ALARA. COMPARISON: CTA chest 08/13/2020 FINDINGS: Multinodular thyroid. Left subclavian Qxlnit-b-Vdtp catheter distal tip terminates in the m id SVC. The heart is normal in size with extensive coronary artery calcifications. Atherosclerosis of the aorta. Prior median sternotomy with CABG. No thoracic aortic aneurysm. Limited evaluation for ad enopathy without the use of IV contrast. Paratracheal and subcarinal adenopathy. Trace left and large right pleural effusions. Mild left basilar consolidation. Metastatic nodules thr oughout the left lung include a 10 mm left upper lobe nodule on image 73 which is new from prior. Nod ules of the left lung base measure up to 9 mm in the left lower lobe on image 180. There is volume lo ss with collapse involving the majority of the right lung with a few air bronchograms and minimally i n aerated lung parenchyma. The previously described mass within the right upper lobe is predominantly obscured by the consolidation collapse however appears to measure up to approximately 8.7 cm. Calcific granulomata of the spleen. The study is degraded by respiratory motion artifact. Unremarkabl e soft tissues. There is no acute fracture identified. There are a few healed chronic anterior bilate ral rib fractures. IMPRESSION: 1. The patient's known right upper lobe malignant mass is redemonstrated with margins obscured second narendra to partial/near complete collapse of the right lung. 2. Large right and trace left pleural effusions. 3. Progressively worsened pulmonary metastasis throughout the left lung. 4. Mild mediastinal and hilar adenopathy. ACT 112: Negative or not required by law. Electronically signed by: Rubio Lundberg M.D. 05/06/2021 4:35 PM
[2021-05-06] MEDS ORDERED: hydrALAZINE HCL 20 MG/ML VIAL IV PRN (17:03)
[2021-05-06] MEDS ORDERED: POLYETHYLENE (MIRALAX) 17 GM PACK PO PRN (17:03)
[2021-05-06] MEDS ORDERED: guaiFENesin 600 MG TABCR PO PRN (17:03)
[2021-05-06] MEDS ORDERED: PIPERACILL/TAZOBAC CONSULT ACTIVE PRN (17:03)
[2021-05-06] MEDS ORDERED: ALUMINUM/MAGNESIUM SUSP 30 ML UDC PO PRN (17:03)
[2021-05-06] MEDS ORDERED: NON-FORMULARY MEDICATION (Prednisolone Acetate 1 % drops,suspension) OPL SCH (17:03)
[2021-05-06] MEDS ORDERED: MAGNESIUM HYDROXIDE SUSP 30 ML UDC PO PRN (17:03)
[2021-05-06] MEDS ORDERED: ENOXAPARIN INJ 40 MG/0.4 ML SYR SQ SCH (17:03)
[2021-05-06] MEDS ORDERED: KETOROLAC TROMETHAMINE 15 MG/ML VIAL IV ONE (17:09)
[2021-05-06] MEDS ORDERED: PIPERACILLIN/TAZOBACTAM 4.5 GM in DEXTROSE 5% 100 ML IV SCH (17:15)
--- NOTE | 2021-05-06 17:15 | History & Physical Report ---
Date of Service May 06, 2021 Assessment & Plan (1) Bilateral pleural effusion: Plan: In setting of metastatic NSCLC -- malignant effusions R>L - Conult pulmonology, Dr. Sutherland, case d/w him, believe pt would benefit from a symptom-standpoint from placement of pleur-X, appreciate pulm assistance - In the interm, uncertain if there is an underlying post-obstructive PNA, will empirically start on Zosyn - Initiate Duonebs QID - Incentive spirometry q4h while awake - Mucinex (2) Hyponatremia: Plan: - Likely SIADH in setting of malignancy (3) Non-small cell lung cancer (NSCLC): Plan: - Metastatic, No longer a candidate for chemotherapy - Discussed hospice with the patient, she is agreeable - Once stabilized, will consult case management re: hospice - Continue supplemental O2 (4) Substernal chest pain: Plan: - Suspect this is pleuritic due to her effusion - Less suspicious of cardiac source - Troponin detectable; however, likely represents demand ischemia (5) Immune deficiency disorder: Plan: - Currently on immune therapy weekly at home - In order to pursue hospice, will need to discontinue this - Discussed this w/ patient and she is agreeable (6) HTN (hypertension): Plan: - Hypertensive at this time - Add Hydralazine 10mg IV q6h PRN sbp>170 or dbp>100 - Resume Metoprolol Tartrate 75mg BID - Imdur - Monitor BP (7) Hyperlipemia: Plan: - Continue Simvastatin (8) CAD, multiple vessel: Plan: - Obtain follow up troponin - Continue Imdur, Lopressor, Statin (9) Underweight: Plan: - Severe PCM d/t her metastatic disease - Can add Boost supplements TID (10) GERD (gastroesophageal reflux disease): Plan: - PPI Plan: Lovenox for DVT ppx (hold tomorrow AM until after seen by pulm and pleurX placed) Code status: DNR/DNI Will consult case management to assist in d/c planning home w/ hospice Updated at bedside. Above plan has been d/w Dr. [place]. History of Present Illness Chief Complaint: Chest pain and shortness of breath Primary Care Provider: Evin Villalpando MD Mrs. Vega is a pleasant 76 yo elderly WF with a known h/o metastatic non-small cell lung CA, Sjogren's, immune deficiency, bronchiectasis, CAD, and large B cell NH lymphoma who presented today due to progressively worsening dyspnea and chest pain. She was last hospitalized back in July of 2020 for UTI. Pt notes that she has been off chemotherapy for her lung CA x 19 months. Reports chemo was stopped as it was no longer effective was deemed no longer a candidate for chemo. She does follow with Margarita Smith at [facility]. She states she last saw her several weeks ago and was actually encouraged to come to the ED today by them. She denies being active with hospice at this time but notes that hospice has been discussed and she is now agreeable. During her last hospitalization, it appears she met with the palliative care team and at the time she was not ready to pursue hospice as it was discussed she would have to stop her IVIG that she has been receiving for her immune deficiency. Pt reports that symptoms started the week prior to [place]. She began having chest pain, all over, sharp in nature and rated a 10/10. She denies any alleviating or aggravating factors. She has tried taking OTC APAP without relief and finally her PCP called her in Oxycodone with very little relief. Pt also reports increased dyspnea. She has occasional cough, nonproductive, and denies fever or chills. She denies n/v/d, abd pain, or gu symptoms. She wears supplemental oxygen at home between 2-3L. Her work up in the ED demonstrated complete opacification of her right lung. CT chest performed reveals large amount of fluid in addition to her large RUL mass. Her wbc is WNL, there is no shift in her cell lines, and her procalcitonin is also normal. Her sodium is slightly decreased but otherwise her electrolytes are WNL. She has been medic ated with Morphine 2mg IV x2 with little to no relief. COVID-19 swab was negative. She has been referred for admission under the hospitalist service for further evaluation and care. Allergies Allergy/AdvReac Type Severity Reaction Status Date / Time No Known Allergies Allergy Verified 05/06/21 18:02 Home Medications Medication Instructions Recorded Confirmed Type cevimeline 30 mg capsule 30 mg PO TIDM 06/21/18 05/06/21 History isosorbide mononitrate 60 mg 60 mg PO QAM 06/21/18 05/06/21 History tablet,extended release 24 hr magnesium 250 mg tablet 500 mg PO QAM 06/21/18 05/06/21 History ondansetron 4 mg disintegrating 8 mg PO Q8H PRN 06/21/18 05/06/21 History tablet potassium chloride 10 mEq 10 meq PO TIDM 06/21/18 05/06/21 History capsule,extended release raloxifene 60 mg tablet 60 mg PO QPM 06/21/18 05/06/21 History ranolazine 500 mg tablet,extended 500 mg PO AMHS 06/21/18 05/06/21 History release,12 hr (Ranexa) simvastatin 40 mg tablet 40 mg PO HS 06/21/18 05/06/21 History calcium carbonate 600 mg-vitamin 1 cap PO BIDM 09/06/18 05/06/21 History D3 5 mcg (200 unit) capsule (Calcium 600 + D(3)) pantoprazole 40 mg tablet,delayed 40 mg PO QAM 09/23/18 05/06/21 History release immun glob G 4 gram/20 mL(20 8 gm SQ WEEKLY ml 02/16/19 05/06/21 History %)-prol-IgA 0-50 mcg/mL subcutaneous soln (Hizentra) prednisone 1 mg tablet,delayed 3 mg PO QAM tab 02/16/19 05/06/21 History release prochlorperazine maleate 10 mg 10 mg PO Q8H PRN 04/05/19 05/06/21 History tablet (Compazine) Plexus-Probio 5 1 dose PO DAILY 03/11/20 05/06/21 History albuterol sulfate 90 mcg/actuation 2 puffs INH AMPM 03/11/20 05/06/21 History aerosol inhaler epinephrine 0.3 mg/0.3 mL 0.3 mg IM Q3H PRN 03/11/20 05/06/21 History injection, auto-injector (EpiPen) metoprolol tartrate 50 mg tablet 75 mg PO AMHS 03/11/20 05/06/21 History ylzywqdnjgjb-fthxekpa-tiyfyk tablet 1 tab PO DAILY 03/11/20 05/06/21 History nitroglycerin 0.4 mg sublingual 0.4 mg SUBLINGUAL DIRECTED PRN 03/11/20 05/06/21 History tablet (Nitrostat) guaifenesin 600 mg tablet, 600 mg PO Q12 PRN 08/13/20 05/06/21 History extended release 12 hr (Mucinex) Premier Drink 1 ea PO BID 05/06/21 05/06/21 History food supplemt, lactose-reduced 1 ea PO DAILY 05/06/21 05/06/21 History Past Med/Surg History Medical History CAD (coronary artery disease), [employer] coronary artery With stable angina COPD exacerbation Diarrhea GERD (gastroesophageal reflux disease) DIET CONTROLLED Glaucoma History of lung cancer dx 2018 chemo History of lymphoma dx 2016, in remission Hyperlipidemia Hypertension Hypogammaglobulinemia Immunodeficiency Immunosuppression Insomnia Mitral regurgitation mild to moderate Osteoporosis Palliative care encounter Sjogren's disease Steroid dependence sjogrens disease TIA (transient ischemic attack) 12/14/2018, TIA vs possible seizure. 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 HEENT: Denies changes in vision and hearing. RESPIRATORY: +SOB, cough. CV: +CP. Denies palpitations, lower extremity edema, orthopnea, PND. GI: Denies abdominal pain, nausea, vomiting and diarrhea. : Denies dysuria and urinary frequency, urgency, hesitancy. MUSCULOSKELETAL: Denies myalgia and joint pain. SKIN: Denies rash and pruritus. NEUROLOGICAL: Denies headache, syncope, focal weakness, numbness, tingling. PSYCHIATRIC: Denies recent changes in mood. Denies anxiety and depression. Physical Exam Physical Exam: GENERAL: 76 thin frail elderly WF. NAD. EYES: EOMI. PERRLA. Anicteric. HENT: Moist mucous membranes. No scleral icterus. No cervical lymphadenopathy. LUNGS: Clear to auscultation bilaterally. No accessory muscle use. No W/R/R. CARDIOVASCULAR: Regular rate and rhythm. No M/G/R. No JVD. ABDOMEN: Soft, non-tender and non-distended. No palpable masses. Bowel sounds normoactive x 4 quad. EXTREMITIES: Trace edema B/L LE. Non-tender. Peripheral pulses +2/4. NEUROLOGIC: A&O x3. No focal neurological deficits. CN II-XII grossly intact. PSYCHIATRIC: Cooperative. Appropriate mood and affect. SKIN: Warm, dry, intact. No rashes or lesions. Results & Data Results & Data ([facility]) Vital Signs (Past 12 Hours) Vital Signs Temp Pulse Pulse Resp BP BP Pulse Ox 05/06/21 15:17 95 05/06/21 15:14 93 H 30 H 170/97 H 95 05/06/21 13:55 36.3 C L 94 H 22 165/95 H 95 Laboratory Results 05/06/21 14:35 05/06/21 14:35 Diagnostic Findings Chest X-Ray 05/06/21 14:47 XR chest 1V portable CLINICAL HISTORY: Atypical chest pain TECHNIQUE: Single frontal radiograph of the chest was obtained. Comparison: Comparison is made to chest one view 08/16/2020 FINDINGS: A left portacatheter is unchanged. The cardiomediastinal silhouette is normal. There is opacification of the right hemithorax with slight right tracheal deviation. No pneumothorax is seen. No left pleural effusion. Right effusion cannot be excluded. IMPRESSION: Opacification of the right hemithorax which may reflect consolidation or effusion with a likely component of atelectasis. ACT 112: Negative or not required by law. Electronically signed by: Elliott Moe M.D. 05/06/2021 3:[address] 05/06/21 15:39 CT chest diagnostic wo con CT DOSE: 175.37 mGy.cm CLINICAL HISTORY: 76 years-old Female with right lung whiteout. Patient presents with complete opacification of the right hemithorax. TECHNIQUE: Multiaxial CT images of the chest were performed without contrast. A dose lowering technique was utilized adhering to the principles of ALARA. COMPARISON: CTA chest 08/13/2020 FINDINGS: Multinodular thyroid. Left subclavian Tkhgnl-m-Ktpy catheter distal tip terminates in the mid SVC. The heart is normal in size with extensive coronary artery calcifications. Atherosclerosis of the aorta. Prior median sternotomy with CABG. No thoracic aortic aneurysm. Limited evaluation for adenopathy without the use of IV contrast. Paratracheal and subcarinal adenopathy. Trace left and large right pleural effusions. Mild left basilar consolidation. Metastatic nodules throughout the left lung include a 10 mm left upper lobe nodule on image 73 which is new from prior. Nodules of the left lung base measure up to 9 mm in the left lower lobe on image 180. There is volume loss with collapse involving the majority of the right lung with a few air bronchograms and minimally in aerated lung parenchyma. The previously described mass within the right upper lobe is predominantly obscured by the consolidation collapse however appears to measure up to approximately 8.7 cm. Calcific granulomata of the spleen. The study is degraded by respiratory motion artifact. Unremarkable soft tissues. There is no acute fracture identified. There are a few healed chronic anterior bilateral rib fractures. IMPRESSION: 1. The patient's known right upper lobe malignant mass is redemonstrated with margins obscured secondary to partial/near complete collapse of the right lung. 2. Large right and trace left pleural effusions. 3. Progressively worsened pulmonary metastasis throughout the left lung. 4. Mild mediastinal and hilar adenopathy. ACT 112: Negative or not required by law. Electronically signed by: Rubio Lundberg M.D. 05/06/2021 4:35 PM Code Status & VTE Plan Code Status DNR/DNI, this was discussed with the patient VTE Prophylaxis Plan VTE Prophylaxis will be ordered: Yes Supervising Physician Co-Signing Physician Notes I personally saw and examined the patient. I verified all abraham points and agree with Zulema Washburn PA-C with the following exceptions and/or additions: 76 year old female admission for shortness of breath. Known metastatic non-small cell lung cancer. Now with complete white out of right lung which is new compared to previous imaging in July. She previously did not tolerate chemotherapy therefore is not on any active treatment for her cancer at this time. O/E Cachectic, No breath sounds on right side, rhonchi present on left side. Trachea central. Using accessory muscles. Able to speak in short sentences. A/P Massive right sided pleural effusion (suspected malignant) with complete collapse of right lung - difficult to rule out pneumonia, previous procalcitonin negative with post obstructive pneumonia, no WBC or fever. Appears reasonable to cover with Zosyn pending pleurx catheter vs. thoracocentesis. She is keen to try to remove some fluid to see if this will help her symptomatically therefore will consult pulmonology tomorrow. Discussed case with Dr Sutherland over the phone. Otherwise treatment as above. PG Care Time/CCT Total # of Minutes Spent Total Time Spent with Patient: Total time spent is greater than 50% in coordination of care (as documented) at patient's floor/unit and/or counseling patient: Coding Level of Care Code 47703 Initial Inpt Care Lvl 3 Diagnoses Bilateral pleural effusion J90 Hyponatremia E87.1 Non-small cell lung cancer (NSCLC) C34.91 Laterality: right Substernal chest pain R07.2 Immune deficiency disorder D84.9 HTN (hypertension) I10 Hyperlipemia E78.5 CAD, multiple vessel I25.10 Underweight R63.6 GERD (gastroesophageal reflux disease) K21.9 (1) Non-small cell lung cancer (NSCLC) Laterality: right Qualified Code(s): C34.91 - Malignant neoplasm of unspecified part of right bronchus or lung
[2021-05-06] MEDS ORDERED: LOPERAMIDE HCL 2 MG CAP PO PRN (17:45)
[2021-05-06] MEDS ORDERED: PIPERACILLIN/TAZOBACTAM 3.375 GM in DEXTROSE 5% 100 ML IV ONE (18:00)
[2021-05-06] MEDS: ALBUT/IPRATROP 3MG/0.5MG NEB 3 ML VIAL NEB SCH (19:14)
[2021-05-06] MEDS: ACETAMINOPHEN 325 MG TAB PO PRN (19:36)
[2021-05-06] MEDS ORDERED: HEPARIN 100 UNIT/ML 5ML FLUSH ONE (20:35)
[2021-05-06] MEDS ORDERED: prednisoLONE acetate 1% OP SUSP 5 ML BTL OPL SCH (21:00)
[2021-05-06] MEDS: SIMVASTATIN 40 MG TAB PO SCH (21:40)
[2021-05-06] MEDS: RANOLAZINE 500 MG ER TAB PO SCH (21:40)
[2021-05-06] MEDS: RALOXIFENE HCL 60 MG TAB PO SCH (21:40)
[2021-05-06] MEDS: METOPROLOL TARTRATE 50 MG TAB PO SCH (21:58)
[2021-05-06] MEDS: MoRPHine SULFATE 2 MG/ML CARP IV PRN (22:15)
[2021-05-06] MEDS: HEPARIN 100 UNIT/ML 5ML FLUSH FLUSH PRN (22:16)
[2021-05-07] MEDS: ACETAMINOPHEN 325 MG TAB PO PRN ×2 (00:22→22:17)
[2021-05-07] MEDS: PIPERACILLIN/TAZOBACTAM 3.375 GM in DEXTROSE 5% 100 ML IV SCH ×3 (00:23→16:00)
[2021-05-07] MEDS: ALBUT/IPRATROP 3MG/0.5MG NEB 3 ML VIAL NEB SCH ×5 (01:08→19:39)
[2021-05-07] MEDS: ONDANSETRON INJ 2 MG/ML 2 ML VIAL IV PRN (02:24)
[2021-05-07] MEDS: MoRPHine SULFATE 2 MG/ML CARP IV PRN ×2 (02:26→06:21)
[2021-05-07] MEDS: HEPARIN 100 UNIT/ML 5ML FLUSH FLUSH PRN ×3 (04:30→22:17)
[2021-05-07] MEDS: METOPROLOL TARTRATE 50 MG TAB PO SCH ×3 (08:24→20:44)
--- NOTE | 2021-05-07 08:25 | Pulmonary Consultation ---
Date of Consultation May 07, 2021 Assessment & Plan (1) Pleural effusion: (2) SOB (shortness of breath): (3) History of lung cancer: (4) Chest pain: Chest pain type: unspecified Qualified Code(s): R07.9 - Chest pain, unspecified Impression: 76-year-old female with non-small cell lung cancer, meta static. She has not been on therapy for over a year due to progression of disease and poor clinical status. She presents now with opacification of the right hemithorax and atelectasis of the upper lobe. She had a mass there previously which was likely her cancer. She does have some adenopathy. She has an effusion as well. Recommendations: 1. Pleural effusion: I met with the patient at bedside. She is extremely frail and cachectic. Based on her history and review of imaging, I think her demise is rapidly approaching. We discussed options for her pleural effusion to include thoracentesis versus Pleurx catheter. She would like to avoid invasive indwelling catheters which I think is reasonable. In addition its unclear if the lung would reexpand after thoracentesis or if she has a trapped/entrapped lung. We will proceed with ultrasound-guided catheter thoracentesis on the right to see if she has any clinical benefit. If she improves and is open to Pleurx catheter in the future, this can be arranged as an outpatient. Will not send pleural fluid for analysis as it is not going to change control analyst at this point time. 2. Recommend aggressive symptom management. Deferred to primary service. 3. Recommend rapid engagement of outpatient palliative care/home hospice. Will follow-up post thoracentesis x-ray and see if the patient has any clinical benefit associated with removal of fluid. Thanks for the opportunity participating in the care of this patient. Feel free to contact us if we can be of additional assistance History of Present Illness Attending Physician: Steven Byrd History of Present Illness Asked by hospitalist to evaluate this patient with metastatic non-small cell lung cancer which is progressive and hypoxemic respiratory failure with pleural effusion. History is obtained from discussion with the patient, hospitalist service, and review of electronic medical record. The patient is a 76-year-old female who had followed previously with Dr. Estrada and is currently established with Dr. Cordero. She has a history of metastatic non-small cell lung cancer and has not been on any chemotherapy for the last year due to declining performance status and progression of disease. About 9 months ago the patient was an inpatient and hospice was recommended at that time. She was to establish with [facility] outpatient palliative care. Apparently this was not completed. The patient presented to the emergency room yesterday with shortness of breath and chest discomfort. Her symptoms have been going on for about 2 weeks. Chest x-ray demonstrated opacification of the right hemithorax confirmed by CT scan. She has not had an effusion tapped previously. She denies any history of trauma. No infectious symptoms. She is not anticoagulated. The hospitalist discussed [facility]. Hospice is apparently being arranged by the case management staff. Allergies Allergy/AdvReac Type Severity Reaction Status Date / Time No Known Allergies Allergy Verified 05/06/21 18:02 Home Medications Medication Instructions Recorded Confirmed Type cevimeline 30 mg capsule 30 mg PO TIDM 06/21/18 05/06/21 History isosorbide mononitrate 60 mg 60 mg PO QAM 06/21/18 05/06/21 History tablet,extended release 24 hr magnesium 250 mg tablet 500 mg PO QAM 06/21/18 05/06/21 History ondansetron 4 mg disintegrating 8 mg PO Q8H PRN 06/21/18 05/06/21 History tablet potassium chloride 10 mEq 10 meq PO TIDM 06/21/18 05/06/21 History capsule,extended release raloxifene 60 mg tablet 60 mg PO QPM 06/21/18 05/06/21 History ranolazine 500 mg tablet,extended 500 mg PO AMHS 06/21/18 05/06/21 History release,12 hr (Ranexa) simvastatin 40 mg tablet 40 mg PO HS 06/21/18 05/06/21 History calcium carbonate 600 mg-vitamin 1 cap PO BIDM 09/06/18 05/06/21 History D3 5 mcg (200 unit) capsule (Calcium 600 + D(3)) pantoprazole 40 mg tablet,delayed 40 mg PO QAM 09/23/18 05/06/21 History release immun glob G 4 gram/20 mL(20 8 gm SQ WEEKLY ml 02/16/19 05/06/21 History %)-prol-IgA 0-50 mcg/mL subcutaneous soln (Hizentra) prednisone 1 mg tablet,delayed 3 mg PO QAM tab 02/16/19 05/06/21 History release prochlorperazine maleate 10 mg 10 mg PO Q8H PRN 04/05/19 05/06/21 History tablet (Compazine) Plexus-Probio 5 1 dose PO DAILY 03/11/20 05/06/21 History albuterol sulfate 90 mcg/actuation 2 puffs INH AMPM 03/11/20 05/06/21 History aerosol inhaler epinephrine 0.3 mg/0.3 mL 0.3 mg IM Q3H PRN 03/11/20 05/06/21 History injection, auto-injector (EpiPen) metoprolol tartrate 50 mg tablet 75 mg PO AMHS 03/11/20 05/06/21 History qdsgjuzepebr-gtlbapsj-roovor tablet 1 tab PO DAILY 03/11/20 05/06/21 History nitroglycerin 0.4 mg sublingual 0.4 mg SUBLINGUAL DIRECTED PRN 03/11/20 05/06/21 History tablet (Nitrostat) guaifenesin 600 mg tablet, 600 mg PO Q12 PRN 08/13/20 05/06/21 History extended release 12 hr (Mucinex) Premier Drink 1 ea PO BID 05/06/21 05/06/21 History food supplemt, lactose-reduced 1 ea PO DAILY 05/06/21 05/06/21 History Patient History Medical History CAD (coronary artery disease), [place] coronary artery With stable angina COPD exacerbation Diarrhea GERD (gastroesophageal reflux disease) DIET CONTROLLED Glaucoma History of lung cancer dx 2018 chemo History of lymphoma dx 2016, in remission Hyperlipidemia Hypertension Hypogammaglobulinemia Immunodeficiency Immunosuppression Insomnia Mitral regurgitation mild to moderate Osteoporosis Palliative care encounter Sjogren's disease Steroid dependence sjogrens disease TIA (transient ischemic attack) 12/14/2018, TIA vs possible seizure. Weakness Surgical History History of arthroscopy RIGHT KNEE MENISCUS History of cataract surgery RT History of cholecystectomy History of colonoscopy History of coronary artery bypass graft 4 VESSEL, [facility] 6 YEARS AGO History of hysterectomy Family History Unknown Heart disease Other Family history non-contributory Social History Smoking Status: Never smoker Second Hand Exposure: No; Do You Dip or Chew Tobacco: No; Hx Alcohol Use: No Hx Substance Use: No Preferred Language: Moldovan Communication Ability: Effective Transportation Mechanic Required: No Beliefs That Will Affect Care: None marital status: Current Living Situation: Spouse current occupational status: retired 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 No additions or deletions Physical Exam Physical Exam: GENERAL: 76 thin frail elderly WF. Patient is dyspneic at rest. She is cachectic EYES: EOMI. PERRLA. Anicteric. HENT: Moist mucous membranes. No scleral icterus. LUNGS: Breath sounds are absent in the right hemithorax. She demonstrates increased work of breathing and is tachypneic with conversation CARDIOVASCULAR: Regular rate and rhythm. No M/G/R. No JVD. ABDOMEN: Soft, non-tender and non-distended. No palpable masses. Bowel sounds normoactive x 4 quad. EXTREMITIES: Trace edema B/L LE. Non-tender. Peripheral pulses +2/4. NEUROLOGIC: A&O x3. No focal neurological deficits. CN II-XII grossly intact. PSYCHIATRIC: Cooperative. Appropriate mood and affect. SKIN: Warm, dry, intact. No rashes or lesions. Results & Data Results & Data ([facility]) Vital Signs (Past 12 Hours) Vital Signs Temp Pulse Resp BP Pulse Ox 05/07/21 07:35 91 H 18 93 05/07/21 07:26 36.5 C 98 H 16 145/88 H 100 05/07/21 06:49 36.5 C 05/07/21 01:17 81 22 96 05/07/21 01:00 22 92 05/06/21 21:58 36.3 C L 93 H 18 162/87 H 95 05/06/21 20:20 36.5 C 99 H 22 156/85 H 96 Laboratory Results 05/06/21 14:35 05/06/21 14:35 INR normal Diagnostic Findings CT chest diagnostic wo con 05/06/[address] DOSE: 175.37 mGy.cm CLINICAL HISTORY: 76 years-old Female with right lung whiteout. Patient presents with complete opacification of the right hemithorax. TECHNIQUE: Multiaxial CT images of the chest were performed without contrast. A dose lowering technique was utilized adhering to the principles of ALARA. COMPARISON: CTA chest 08/13/2020 FINDINGS: Multinodular thyroid. Left subclavian Fhjzwh-q-Oxeh catheter distal tip terminates in the mid SVC. The heart is normal in size with extensive coronary artery calcifications. Atherosclerosis of the aorta. Prior median sternotomy with CABG. No thoracic aortic aneurysm. Limited evaluation for adenopathy without the use of IV contrast. Paratracheal and subcarinal adenopathy. Trace left and large right pleural effusions. Mild left basilar consolidation. Metastatic nodules throughout the left lung include a 10 mm left upper lobe nodule on image 73 which is new from prior. Nodules of the left lung base measure up to 9 mm in the left lower lobe on image 180. There is volume loss wi th collapse involving the majority of the right lung with a few air bronchograms and minimally in aerated lung parenchyma. The previously described mass within the right upper lobe is predominantly obscured by the consolidation collapse however appears to measure up to approximately 8.7 cm. Calcific granulomata of the spleen. The study is degraded by respiratory motion artifact. Unremarkable soft tissues. There is no acute fracture identified. There are a few healed chronic anterior bilateral rib fractures. IMPRESSION: 1. The patient's known right upper lobe malignant mass is redemonstrated with margins obscured secondary to partial/near complete collapse of the right lung. 2. Large right and trace left pleural effusions. 3. Progressively worsened pulmonary metastasis throughout the left lung. 4. Mild mediastinal and hilar adenopathy. PG Care Time/CCT Total # of Minutes Spent Total Time Spent with Patient: Total time spent is greater than 50% in coordination of care (as documented) at patient's floor/unit and/or counseling patient: Coding Level of Care Code 70430 Initial Inpt Care Lvl 3 Diagnoses Pleural effusion J90 SOB (shortness of breath) R06.02 History of lung cancer Z85.118 Chest pain R07.9 Chest pain type: unspecified
[2021-05-07] MEDS: predniSONE 1 MG TAB PO SCH ×2 (08:26→15:08)
[2021-05-07] MEDS: PANTOprazole 40 MG TAB PO SCH ×2 (08:26→15:07)
[2021-05-07] MEDS: ISOSORBIDE MONO EXTENDED REL 60 MG TABCR PO SCH ×2 (08:26→15:07)
[2021-05-07] MEDS: RANOLAZINE 500 MG ER TAB PO SCH ×3 (08:27→20:45)
--- NOTE | 2021-05-07 08:27 | Procedure Note ---
Procedure Note Date of Service May 07, 2021 Note Procedure: Diagnostic therapeutic ultrasound-guided catheter thoracentesis Hogshead Opener: Dr. Emery Sutherland Indication: Pleural effusion Consent: Signed by patient and verified with timeout prior to procedure Anesthesia: 8 mL's 1% lidocaine without epinephrine local. Procedure: Consent was verified and timeout performed. Appropriate imaging studies were reviewed prior to the procedure. Patient was placed in a seated position and limited thoracic ultrasound was performed of the right chest. Large right-sided effusion was present with compressive atelectasis. Site appropriate for thoracentesis was selected. The skin was prepped and draped in normal sterile fashion. Lidocaine was used for local analgesia. Fluid was aspirated via the finder needle. A small skin la was made with the scalpel and the catheter over the needle apparatus was advanced over the rib into the pleural space. Using the syringe one-way valve system, a total of 1500 mL's of yellow slightly cloudy fluid was removed. Procedure was terminated due to patient complaining of some chest pain and cough. The catheter was removed and observed to be intact. A sterile dressing was applied. Post procedure chest x-ray was ordered. Fluid was not sent as it would not car changer The patient tolerated the procedure well without obvious complication Coding CPT Codes Pulmonary/Thoracic - Pulmonary and Thoracic: 40076 Thoracentesis w imaging ([id number]) [facility] Procedure Codes (Charges) Pulmonary/Thoracic Procedure 1: Pulmonary and Thoracic: 97897 Thoracentesis w imaging
--- NOTE | 2021-05-07 08:42 | XRay Report ---
XR chest 1V portable CLINICAL HISTORY: Status post right thoracentesis. Evaluate for pneumothorax.. COMPARISON STUDY: 05/06/2021 TECHNIQUE: 1 view of the chest FINDINGS: Single frontal view of the chest demonstrates the cardiomediastinal silhouette to be within normal li mits. The patient is again status post previous cardiothoracic surgery. Port-A-Cath is in place. Compared to the previous study, the patient is status post right thoracentesis with significant incre ased aeration of the right hemithorax. However, persistent blunting of the right costophrenic angle i s present representing residual pleural fluid. There is no evidence for pneumothorax. There is no zoe dence for left pleural effusion. There is no evidence for vascular congestion. There is no acute osse ous pathology. IMPRESSION: Status post right thoracentesis with significant increased aeration of the right hemithor ax now seen. There is no evidence for pneumothorax. Residual right pleural effusion is present. ACT 112: Negative or not required by law. Electronically signed by: Rudy Aguilar M.D. 05/07/2021 8:40 AM
[2021-05-07] MEDS ORDERED: PREDNISONE 1 MG PO SCH (09:00)
[2021-05-07 11:08] LABS: BUN Creatinine Ratio 44.8 (10-20); Calcium 8.1 mg/dl (8.5-10.1); Creatinine Clr Calc Pharmacy 50.3 ml/min; Est GFR (Non-African American) 88.9 ml/min; Magnesium 1.7 mg/dl (1.7-2.4); Potassium 4.6 mmol/L (3.5-5.1)
--- NOTE | 2021-05-07 14:45 | Hospitalist Progress Note ---
Date of Service May 07, 2021 Assessment & Plan (1) Bilateral pleural effusion: Plan: In setting of metastatic NSCLC -- malignant effusions R>L - Pulm consulted, pt seen by Dr. Sutherland underwent thoracentesis this morning with 1.5L taken off. Appreciate his assistance. - Uncertain if there is an underlying post-obstructive PNA, empirically started on Zosyn--will convert to start on oral Augmentin in AM - Continue Duonebs QID - Incentive spirometry q4h while awake - Mucinex (2) Hyponatremia: Plan: - Likely SIADH in setting of malignancy (3) Non-small cell lung cancer (NSCLC): Plan: - Metastatic, No longer a candidate for chemotherapy - Discussed hospice with the patient, she is agreeable - Once stabilized, will consult case management re: hospice - Continue supplemental O2 (4) Substernal chest pain: Plan: - Suspect this is pleuritic due to her effusion - Less suspicious of cardiac source - First troponin detectable f/u trop was WNL (5) Immune deficiency disorder: Plan: - Currently on immune therapy weekly at home - In order to pursue hospice, will need to discontinue this - Discussed this w/ patient and she is agreeable (6) HTN (hypertension): Plan: - Hypertensive at this time - Add Hydralazine 10mg IV q6h PRN sbp>170 or dbp>100 - Resume Metoprolol Tartrate 75mg BID - Imdur - Monitor BP (7) Hyperlipemia: Plan: - Continue Simvastatin (8) CAD, multiple vessel: Plan: - Obtain follow up troponin - Continue Imdur, Lopressor, Statin (9) Underweight: Plan: - Severe PCM d/t her metastatic disease - Can add Boost supplements TID (10) GERD (gastroesophageal reflux disease): Plan: - PPI Plan: Lovenox for DVT ppx, held this AM due to need for thoracentesis Code status: DNR/DNI Case management following to assist in d/c planning Updated at bedside--> plan for home tomorrow w/ hospice care Admission and Anticipated Discharge Date Admission Date: May 06, 2021 [address] Vega was seen on rounds this morning. Pt hospitalized yesterday with complete opacification of the right lung. Pt has known metastatic NSCLC, stopped treatment [address] demonstrated large pleural effusion on right, presumed malignant. She underwent thoracentesis (preferred to pleurX which was felt could be pursued as outpatient if this is effective) this morning by Dr. Sutherland, 1.5L of fluid taken off. Procedure terminated early as pt began having chest discomfort and cough. She otherwise tolerated procedure well w/o any immediate complications. F/u chest xray appears improved aeration of right lung. She still has residual effusion. Pt reports that her chest pain is improved, she was unable to quantify it for me. She feels also that her breathing has improved. She has verbalized that she wishes to go home with hospice. has asked that we set her up to return home tomorrow w/ hospice care as they have a disabled son at home who has an appt this afternoon for his COVID booster. Review of Systems Review of Systems: CONSTITUTIONAL: Denies weight loss/gain, fever and chills, fatigue, malaise, generalized weakness. HEENT: Denies changes in vision and hearing. RESPIRATORY: +SOB, cough. CV: +CP. Denies palpitations, lower extremity edema, orthopnea, PND. GI: Denies abdominal pain, nausea, vomiting and diarrhea. : Denies dysuria and urinary frequency, urgency, hesitancy. MUSCULOSKELETAL: Denies myalgia and joint pain. SKIN: Denies rash and pruritus. NEUROLOGICAL: Denies headache, syncope, focal weakness, numbness, tingling. PSYCHIATRIC: Denies recent changes in mood. Denies anxiety and depression. Physical Exam Physical Exam: GENERAL: 76 thin frail, cachectic elderly WF. NAD. LUNGS: Diminished RLL. Improved air exchange in RUL. Fine crackles LLL. CARDIOVASCULAR: Regular rate and rhythm. No M/G/R. No JVD. ABDOMEN: Soft, non-tender and non-distended. BS normal x 4 quad. EXTREMITIES: Trace edema B/L LE. Non-tender. Peripheral pulses +2/4. PSYCHIATRIC: Cooperative. Appropriate mood and affect. SKIN: Warm, dry, intact. No rashes or lesions. Results & Data Results & Data ([facility]) Vital Signs (Past 12 Hours) Vital Signs Temp Pulse Resp BP Pulse Ox 05/07/21 07:35 91 H 18 93 05/07/21 07:26 36.5 C 98 H 16 145/88 H 100 05/07/21 06:49 36.5 C Laboratory Results 05/06/21 14:35 05/07/21 10:13 Diagnostic Findings Chest X-Ray 05/07/21 08:19 XR chest 1V portable CLINICAL HISTORY: Status post right thoracentesis. Evaluate for pneumothorax.. COMPARISON STUDY: 05/06/2021 TECHNIQUE: 1 view of the chest FINDINGS: Single frontal view of the chest demonstrates the cardiomediastinal silhouette to be within normal limits. The patient is again status post previous cardiothoracic surgery. Port-A-Cath is in place. Compared to the previous study, the patient is status post right thoracentesis with significant increased aeration of the right hemithorax. However, persistent blunting of the right costophrenic angle is present representing residual pleural fluid. There is no evidence for pneumothorax. There is no evidence for left pleural effusion. There is no evidence for vascular congestion. There is no acute osseous pathology. IMPRESSION: Status post right thoracentesis with significant increased aeration of the right hemithorax now seen. There is no evidence for pneumothorax. Residual right pleural effusion is present. ACT 112: Negative or not required by law. Electronically signed by: Rudy Aguilar M.D. 05/07/2021 8:40 AM PG Care Time/CCT Total # of Minutes Spent Total Time Spent with Patient: Total time spent is greater than 50% in coordination of care (as documented) at patient's floor/unit and/or counseling patient: Coding Level of Care Code 86662 Subseq Hosp Care Lvl 2 Diagnoses Bilateral pleural effusion J90 Hyponatremia E87.1 Non-small cell lung cancer (NSCLC) C34.91 Laterality: right Substernal chest pain R07.2 Immune deficiency disorder D84.9 HTN (hypertension) I10 Hyperlipemia E78.5 CAD, multiple vessel I25.10 Underweight R63.6 GERD (gastroesophageal reflux disease) K21.9 (1) Non-small cell lung cancer (NSCLC) Laterality: right Qualified Code(s): C34.91 - Malignant neoplasm of unspecified part of right bronchus or lung
[2021-05-07] MEDS: CEVIMELINE HCL PO SCH ×2 (15:08→18:15)
[2021-05-07] MEDS: RALOXIFENE HCL 60 MG TAB PO SCH (20:44)
[2021-05-07] MEDS: SIMVASTATIN 40 MG TAB PO SCH (20:44)
[2021-05-08] MEDS: PIPERACILLIN/TAZOBACTAM 3.375 GM in DEXTROSE 5% 100 ML IV SCH ×2 (01:00→08:19)
[2021-05-08] MEDS: HEPARIN 100 UNIT/ML 5ML FLUSH FLUSH PRN (05:16)
[2021-05-08] MEDS: ALBUT/IPRATROP 3MG/0.5MG NEB 3 ML VIAL NEB SCH (07:25)
[2021-05-08] MEDS: predniSONE 1 MG TAB PO SCH (08:17)
[2021-05-08] MEDS: RANOLAZINE 500 MG ER TAB PO SCH (08:17)
[2021-05-08] MEDS: METOPROLOL TARTRATE 50 MG TAB PO SCH (08:18)
[2021-05-08] MEDS: CEVIMELINE HCL PO SCH (08:18)
[2021-05-08] MEDS: PANTOprazole 40 MG TAB PO SCH (08:18)
[2021-05-08] MEDS: ISOSORBIDE MONO EXTENDED REL 60 MG TABCR PO SCH (08:18)
[2021-05-08] MEDS: ACETAMINOPHEN 325 MG TAB PO PRN (08:19)
[2021-05-08] MEDS ORDERED: MoRPHine SULFATE 2 MG/ML CARP IV STA (08:27)
[2021-05-08] MEDS: ONDANSETRON INJ 2 MG/ML 2 ML VIAL IV PRN (08:28)
[2021-05-08] MEDS ORDERED: AMOXICILLIN/CLAVULANATE 875 MG TAB PO ONE (09:15)
--- NOTE | 2021-05-08 09:15 | Discharge Summary ---
Date of Service May 08, 2021 Admission HPI Per Admitting Provider Mrs. Vega is a pleasant 76 yo elderly WF with a known h/o metastatic non-small cell lung CA, Sjogren's, immune deficiency, bronchiectasis, CAD, and large B cell NH lymphoma who presented today due to progressively worsening dyspnea and chest pain. She was last hospitalized back in July of 2020 for UTI. Pt notes that she has been off chemotherapy for her lung CA x 19 months. Reports chemo was stopped as it was no longer effective was deemed no longer a candidate for chemo. She does follow with Margarita Smith at [facility]. She states she last saw her several weeks ago and was actually encouraged to come to the ED today by them. She denies being active with hospice at this time but notes that hospice has been discussed and she is now agreeable. During her last hospitalization, it appears she met with the palliative care team and at the time she was not ready to pursue hospice as it was discussed she would have to stop her IVIG that she has been receiving for her immune deficiency. Pt reports that symptoms started the week prior to [place]. She began having chest pain, all over, sharp in nature and rated a 10/10. She denies any alleviating or aggravating factors. She has tried taking OTC APAP without relief and finally her PCP called her in Oxycodone with very little relief. Pt also reports increased dyspnea. She has occasional cough, nonproductive, and denies fever or chills. She denies n/v/d, abd pain, or gu symptoms. She wears supplemental oxygen at home between 2-3L. Her work up in the ED demonstrated complete opacification of her right lung. CT chest performed reveals large amount of fluid in addition to her large RUL mass. Her wbc is WNL, there is no shift in her cell lines, and her procalcitonin is also normal. Her sodium is slightly decreased but otherwise her electrolytes are WNL. She has been medicated with Morphine 2mg IV x2 with little to no relief. COVID-19 swab was negative. She has been referred for admission under the hospitalist service for further evaluation and care. Principal Diagnosis Bilateral Pleural Effusions, R>L (presumed malignant) s/p thoracentesis NSCLC (RUL) Discharge Exam GENERAL: 76 thin frail, cachectic elderly WF. NAD. LUNGS: Diminished RLL. Improved air exchange in RUL. Fine crackles LLL. CARDIOVASCULAR: Regular rate and rhythm. No M/G/R. No JVD. ABDOMEN: Soft, non-tender and non-distended. BS normal x 4 quad. EXTREMITIES: Trace edema B/L LE. Non-tender. Peripheral pulses +2/4. PSYCHIATRIC: Cooperative. Appropriate mood and affect. SKIN: Warm, dry, intact. No rashes or lesions. Discharge Data Allergies Allergy/AdvReac Type Severity Reaction Status Date / Time No Known Allergies Allergy Verified 05/06/21 18:02 Consultations Pulmonology consulted, seen by Dr. Sutherland who performed thoracentesis on 05/07/21 Procedures Performed Bedside thoracentesis performed on 05/07/[address] Sutherland Ordered Studies Chest X-Ray 05/06/21 14:47 XR chest 1V portable CLINICAL HISTORY: Atypical chest pain TECHNIQUE: Single frontal radiograph of the chest was obtained. Comparison: Comparison is made to chest one view 08/16/2020 FINDINGS: A left portacatheter is unchanged. The cardiomediastinal silhouette is normal. There is opacification of the right hemithorax with slight right tracheal deviation. No pneumothorax is seen. No left pleural effusion. Right effusion cannot be excluded. IMPRESSION: Opacification of the right hemithorax which may reflect consolidation or effusion with a likely component of atelectasis. ACT 112: Negative or not required by law. Electronically signed by: Elliott Moe M.D. 05/06/2021 3:[address] 05/06/21 15:39 CT chest diagnostic wo con CT DOSE: 175.37 mGy.cm CLINICAL HISTORY: 76 years-old Female with right lung whiteout. Patient presents with complete opacification of the right hemithorax. TECHNIQUE: Multiaxial CT images of the chest were performed without contrast. A dose lowering technique was utilized adhering to the principles of ALARA. COMPARISON: CTA chest 08/13/2020 FINDINGS: Multinodular thyroid. Left subclavian [id number]-[id number] catheter distal tip terminates in the mid SVC. The heart is normal in size with extensive coronary artery calcifications. Atherosclerosis of the aorta. Prior median sternotomy with CABG. No thoracic aortic aneurysm. Limited evaluation for adenopathy without the use of IV contrast. Paratracheal and subcarinal adenopathy. Trace left and large right pleural effusions. Mild left basilar consolidation. Metastatic nodules throughout the left lung include a 10 mm left upper lobe nodule on image 73 which is new from prior. Nodules of the left lung base measure up to 9 mm in the left lower lobe on image 180. There is volume loss with collapse involving the majority of the right lung with a few air bronchograms and minimally in aerated lung parenchyma. The previously described mass within the right upper lobe is predominantly obscured by the consolidation collapse however appears to measure up to approximately 8.7 cm. Calcific granulomata of the spleen. The study is degraded by respiratory motion artifact. Unremarkable soft tissues. There is no acute fracture identified. There are a few healed chronic anterior bilateral rib fractures. IMPRESSION: 1. The patient's known right upper lobe malignant mass is redemonstrated with margins obscured secondary to partial/near complete collapse of the right lung. 2. Large right and trace left pleural effusions. 3. Progressively worsened pulmonary metastasis throughout the left lung. 4. Mild mediastinal and hilar adenopathy. ACT 112: Negative or not required by law. Electronically signed by: Rubio Lundberg M.D. 05/06/2021 4:35 PM Chest X-Ray 05/07/21 08:19 XR chest 1V portable CLINICAL HISTORY: Status post right thoracentesis. Evaluate for pneumothorax.. COMPARISON STUDY: 05/06/2021 TECHNIQUE: 1 view of the chest FINDINGS: Single frontal view of the chest demonstrates the cardiomediastinal silhouette to be within normal limits. The patient is again status post previous cardiothoracic surgery. Port-A-Cath is in place. Compared to the previous study, the patient is status post right thoracentesis with significant increased aeration of the right hemithorax. However, persistent blunting of the right costophrenic angle is present representing residual pleural fluid. There is no evidence for pneumothorax. There is no evidence for left pleural effusion. There is no evidence for vascular congestion. There is no acute osseous pathology. IMPRESSION: Status post right thoracentesis with significant increased aeration of the right hemithorax now seen. There is no evidence for pneumothorax. Residual right pleural effusion is present. ACT 112: Negative or not required by law. Electronically signed by: Rudy Aguilar M.D. 05/07/2021 8:40 AM Hospital Course (1) Bilateral pleural effusion: In setting of metastatic NSCLC -- presumed malignant effusions R>L - Pulm consulted, pt seen by Dr. Sutherland underwent thoracentesis 05/07/21 with 1.5L taken off. Fluid was not sent for analysis as it will not change the treatment plan. - Uncertain if there is an underlying post-obstructive PNA, empirically started on Zosyn-->transition to Augmentin today and finish as outpatient. - Continue home regimen of inhalers - Continue Mucinex and Prednisone (2) Hyponatremia: - Likely SIADH in setting of malignancy (3) Non-small cell lung cancer (NSCLC): - Metastatic, No longer a candidate for chemotherapy - Discussed hospice with the patient, she is agreeable - Continue supplemental O2 - Transition home with hospice today (4) Substernal chest pain: - Suspect this is pleuritic due to her effusion - Less suspicious of cardiac source - First troponin detectable f/u trop was WNL (5) Immune deficiency disorder: - Currently on immune therapy weekly at home - In order to pursue hospice, will need to discontinue this - Discussed this w/ patient and she is agreeable - Hizentra has been stopped (6) HTN (hypertension): - Ordered Hydralazine 10mg IV q6h PRN sbp>170 or dbp>100 as she was hypertensive on admission - Resumed Metoprolol Tartrate 75mg BID and Imdur - BP well controlled this morning (7) Hyperlipemia: - Continue Simvastatin (8) CAD, multiple vessel: - Obtain follow up troponin (first was detectable but f/u was WNL) - Continue Imdur, Lopressor, Statin (9) Underweight: - Severe PCM d/t her metastatic disease - Boost supplements TID (10) GERD (gastroesophageal reflux disease): - PPI Transition home today with her and initiation of hospice care. Above plan has been d/w Dr. Byrd who has also seen and evaluated the patient, is in agreement w/ aforementioned. Total Time Total Time Spent Total Time Spent (In Minutes): >30 minutes Discharge Plan Discharge Items Patient Disposition: Hospice - Home Reason For Visit: CHEST PAIN AND SHORTNESS OF BREATH Discharge Diagnosis: Fluid in right lung associated with lung cancer Activity: As commented below Activity Comment: As tolerated Non-emergency contact: Primary Care Provider Call non-emergency contact if: you have any medication questions, your symptoms worsen and your pain is not controlled Follow-up/Referrals: Evin Villalpando MD [Primary Care Provider] - Diet: Regular Addtl Attending Provider Instructions: * You were hospitalized due to fluid accumulation in your right lung due to your known lung cancer * The fluid was removed by a lung doctor and you have been started on antibiotics in the event that there is also a pneumonia * We will transition you to oral antibiotics (Augmentin) to complete at home. Take it with food or milk. Next dose is due on 05/08/21 before bed. * We have discussed transitioning you back home with your family and having hospice care start. * Remember that in order to transition to hospice care, we had to stop your weekly immune therapy (Hizentra). * Hospice will follow up with you at your home once you've been discharged * They will work on keeping your needs met while you're at home, including difficulty breathing or pain * Advise follow up with your primary care provider within 1 week of discharge Pending Studies at Discharge: No Stand-Alone Forms: My [facility] Medications and DC Order Prescriptions: New amoxicillin-pot clavulanate [Augmentin] 875-125 mg tablet 1 tab PO BID Qty: 11 RF: 0 Continued prednisone 1 mg tablet,delayed release (DR/EC) 3 mg PO QAM RF: 0 Calcium 600 + D(3) 600 mg calcium- 200 unit Capsule 1 cap PO BIDM RF: 0 pantoprazole 40 mg tablet,delayed release (DR/EC) 40 mg PO QAM RF: 0 prochlorperazine maleate [Compazine] 10 mg Tablet 10 mg PO Q8H PRN (Reason: Nausea) RF: 0 metoprolol tartrate 50 mg tablet 75 mg PO AMHS RF: 0 [id number] Tablet 1 tab PO DAILY RF: 0 nitroglycerin [Nitrostat] 0.4 mg tablet, sublingual 0.4 mg Sublingual DIRECTED PRN (Reason: Chest Pain) RF: 0 albuterol sulfate 90 mcg/actuation HFA aerosol inhaler 2 puffs INH AMPM RF: 0 Plexus-Probio 5 1 dose PO DAILY RF: 0 potassium chloride 10 mEq Capsule, Extended Release 10 meq PO TIDM RF: 0 simvastatin 40 mg Tablet 40 mg PO HS RF: 0 isosorbide mononitrate 60 mg Tablet Extended Release 24 Hr 60 mg PO QAM RF: 0 cevimeline 30 mg Capsule 30 mg PO TIDM RF: 0 raloxifene 60 mg Tablet 60 mg PO QPM RF: 0 magnesium 250 mg Tablet 500 mg PO QAM RF: 0 ondansetron 4 mg Tablet,Disintegrating 8 mg PO Q8H PRN (Reason: Nausea) RF: 0 ranolazine [Ranexa] 500 mg Tablet Extended Release 12 Hr 500 mg PO AMHS RF: 0 food supplemt, lactose-reduced Liquid 1 ea PO DAILY RF: 0 Premier Drink 1 ea PO BID RF: 0 guaifenesin [Mucinex] 600 mg tablet extended release 12hr 600 mg PO Q12 PRN (Reason: Congestion) RF: 0 Discontinued Hizentra 4 gram/20 mL (20 %) solution 8 gm SQ WEEKLY RF: 0 epinephrine [EpiPen] 0.3 mg/0.3 mL auto-injector 0.3 mg IM Q3H PRN (Reason: Infusion Reaction) RF: 0 Discharge Orders: Discharge Order (Routine); Ordered 05/08/21 Ordered By: Zulema Valero/Other Patient Handouts: Pleural Effusion Admission Data Admit Date/Time: 05/06/21 17:03 Attending Provider: Steven Byrd Admit Provider: Franc Madrid Primary Care Provider: Evin Villalpando Other Providers: Franc Madrid ; [facility],Home [facility] ; Emery Sutherland Other Interventions: Discharge Summary Assessment (RN) Last Done: 05/08/21 10:13 Supervising Physician Co-Signing Physician Notes Patient was seen and examined independently. Performed a physical exam and discussion on discharge plan during face to face encounter. I discussed the case with Zulema Washburn PAC. I reviewed pertinent past medical social family history and also the plan of care and agree with the plan of care. Patient seen for pleural effusion, s/p thoracocentesis. Patient has non small cell lung cancer. Patient will be discharged on hospice. Patient denies any chest pain at this time. Physical examination as above. I reviewed above note and agree with it. Coding Level of Care Code D/C DAY MANAGEMENT >30 MINS Diagnoses Bilateral pleural effusion J90 Hyponatremia E87.1 Non-small cell lung cancer (NSCLC) C34.91 Laterality: right Substernal chest pain R07.2 Immune deficiency disorder D84.9 HTN (hypertension) I10 Hyperlipemia E78.5 CAD, multiple vessel I25.10 Underweight R63.6 GERD (gastroesophageal reflux disease) K21.9
== END 2021-05-08 10:56 | disposition hospice, home (50) | DRG 180 ==
LOC: ED 13:48 → 3N 17:03 → SUATTDRO 17:03 → 3N 20:00